=== PATIENT | male | born 1945 | race Caucasian/White ===

== ENCOUNTER 2020-01-02 06:53 | Outpatient (CLI) | payer MEDICARE, SELFPAY ==
--- NOTE | ~2020-01-02 | CT_ITS ---
EXAMINATION: CT abdomen pelvis w con INDICATION: Prostate cancer TECHNIQUE: Computed tomographic images of the abdomen and pelvis were obtained after the administrati on of 100 cc of Omnipaque 350 intravenous contrast. The dose-length product (DLP) was 1395.32 mGy-cm. Automated exposure control and iterative reconstruction technique were employed. COMPARISON: None available FINDINGS: Minimal dependent atelectasis is present in the lung bases. The heart size is normal. There is a moderate-sized sliding hiatal hernia. Stones are present in the nondistended gallbladder. The s pleen, gallbladder, pancreas, and adrenal glands are normal. There are multiple cysts of the kidneys. The largest on the right measures 4.7 cm and the largest in the left measures 9.5 cm. A 3.1 x 2.0 cm lesion of the left kidney lower pole measure soft tissue attenuation. There is calcified atheroscler osis of the aorta and many of the other arteries. No pathologically enlarged abdominal or pelvic lymp h nodes are identified. There is no free intraperitoneal gas or evidence of bowel obstruction. The ap pendix is normal. The prostate is mildly enlarged and heterogeneous in appearance. There are changes of left inguinal hernia repair. There is a questionable area of circumferential wall thickening of th e ascending colon. There is severe lumbar spondylosis. IMPRESSION: 1. No evidence of metastatic disease. 2. Indeterminate left kidney mass which may be benign or malignant. Further evaluation by CT or MRI w ithout and with contrast is recommended. 3. Cholelithiasis without evidence of cholecystitis. 4. Possible wall thickening of the ascending colon. Would recommend correlation with colonoscopy hist ory. Reviewed, dictated and finalized at location A. IMPRESSION: 1. No evidence of metastatic disease. 2. Indeterminate left kidney mass which may be benign or malignant. Further lanre luation by CT or MRI without and with contrast is recommended. 3. Cholelithiasis without evidence of cholecystitis. 4. Possible wall thickening of the ascending colon. Would recommend correlation with colonoscopy history.
--- NOTE | ~2020-01-02 | NM_ITS ---
EXAMINATION: NM bone scan whole body DATE: 01/02/2020 11:31 INDICATION: Prostate cancer. TECHNIQUE: 26 mCi Tc-99m HDP was administered intravenously. Delayed whole-body scintigrams were obt ained. COMPARISON: CT abdomen and pelvis 01/02/2020 FINDINGS: There is disc-centered increased activity in lumbar spine correlating with degenerative dis c disease by CT. There is increased activity in left hip joint correlating with osteoarthritis by CT. There is joint-centered increased activity at the sternoclavicular and acromioclavicular joints and in the knees and feet without radiographic comparison, likely osteoarthritis. IMPRESSION: 1. No evidence of metastatic disease. Reviewed, dictated and finalized at location A.
--- NOTE | ~2020-01-02 | XR_ITS ---
XR chest 2V 01/02/2020 07:16 Indication: Prostate cancer. Hypertension. Procedure: 2 view chest Comparison: 07/05/2018 Findings: Large hiatal hernia. Heart size normal. No focal air space disease, pulmonary edema, pleura l effusion or suspected pneumothorax. Impression: 1: No acute cardiopulmonary disease. 2: Large hiatal hernia. Reviewed, dictated and finalized at location A. Impression: 1: No acute cardiopulmonary disease. 2: Large hiatal hernia.
[2020-01-02 07:30] LABS: Estimated Glomerular Filt Rate 42
== END 2020-01-02 06:54 | disposition home or self-care (01) ==
PROVIDERS: PCP Internal Medicine; Visit Provider Urology
DX: C61 Malignant neoplasm of prostate (principal); K80.20 Calculus of gallbladder without cholecystitis without obstruction; N28.89 Other specified disorders of kidney and ureter; K44.9 Diaphragmatic hernia without obstruction or gangrene
CPT/HCPCS: 71046; 74177; 78306; A9561; Q9967

== ENCOUNTER 2020-01-06 06:48 | Outpatient (CLI) | payer MEDICARE, SELFPAY ==
--- NOTE | ~2020-01-06 | MR_ITS ---
EXAMINATION: MR abdomen wo/w con DATE: 01/06/2020 08:17 INDICATION: Left renal neoplasm of uncertain behavior. TECHNIQUE: Magnetic resonance imaging (MRI) of the abdomen was performed without and with 15 mL Multi bhaskar intravenous contrast. Sequences included coronal T2-weighted SS-FSE, coronal and axial FS 2D-F IESTA, axial STIR FSE, axial T2-weighted SS-FSE, axial T2-weighted FS SS-FSE, axial diffusion-weighte d SE, axial dual-echo T1-weighted FSPGR, and axial and coronal T1-weighted LAVA. Postcontrast axial T 1-weighted LAVA images were obtained in a time course. Postcontrast coronal T1-weighted LAVA images w ere obtained. COMPARISON: CT dated 01/02/2020 FINDINGS: 7 mm enhancing nodule along the pleura likely centered in the subpleural fat at the posterior aspect of the left lower lobe. Arch size is normal. No pericardial or pleural effusion. Moderate-sized slidi ng-type hiatal hernia. Liver, spleen and adjacent small splenule, pancreas and bilateral adrenal glan ds are normal. Large calcified gallstone within the otherwise normal-appearing gallbladder. Visualize d portion of the bowels are unremarkable. No pathologically enlarged abdominal lymphadenopathy. Mild thoracic and severe lumbar spondylosis with associated degenerative endplate changes. Small T1 hyperi ntense hemangioma along the superior endplate of L2. No suspicious bone lesions identified. Multiple bilateral nonenhancing renal cysts. There is layering proteinaceous fluid at the dependent a spect of the largest 10.5 cm cyst at the lower pole of the left kidney on the initial dental amalgam processor image whi ch is not appreciated on the subsequent images may be related to mixing. There is low T2 and high T1 signal within a 1.9 cm complex cystic lesion at the lower pole of the left kidney corresponding to th e lesion of concern on prior CT. The majority of the lesion demonstrates no measurable enhancement. H owever there is a small amount of discernible enhancement within the lesion. Assessment of the morpho logy of the enhancement is limited by small amount of ghosting artifact but appears on both axial and coronal sequences is occurring along a linear internal septation or vessel arising at the inferior m argin of the lesion which would be consistent with a Bosniak 2F lesion. IMPRESSION: 1. 1.9 cm complex cystic, Bosniak 2F lesion at the lower pole of the left kidney. Consider follow-up pre and postcontrast MRI in 6 months. 2. Indeterminate 7 mm enhancing nodule in the subpleural fat along the posterior left lower lobe. Dif ferential would include reactive or metastatic lymph node, pleural plaque, schwannoma/peripheral nerv e sheath tumor and granulomatous disease. Consider dedicated CT of the chest and attention on the rec ommended 6 month follow-up MRI for the renal lesion. Reviewed, dictated and finalized at location B. IMPRESSION: 1. 1.9 cm complex cystic, Bosniak 2F lesion at the lower pole of the left kidne y. Consider follow-up pre and postcontrast MRI in 6 months. 2. Indeterminate 7 mm enhancing nodule in the subpleural fat along the posterio r left lower lobe. Differential would include reactive or metastatic lymph node , pleural plaque, schwannoma/peripheral nerve sheath tumor and granulomatous di sease. Consider dedicated CT of the chest and attention on the recommended 6 mo nth follow-up MRI for the renal lesion.
[2020-01-06 07:33] LABS: Estimated Glomerular Filt Rate 42
== END 2020-01-06 06:49 | disposition home or self-care (01) ==
LOC: ANHIMG 06:51
PROVIDERS: PCP Internal Medicine; Visit Provider Urology
DX: D41.02 Neoplasm of uncertain behavior of left kidney (principal); N28.1 Cyst of kidney, acquired; R91.1 Solitary pulmonary nodule
CPT/HCPCS: 74183; A9577

== ENCOUNTER 2020-03-19 12:53 | Outpatient (CLI) | payer MEDICARE, SELFPAY ==
[2020-03-19 13:34] LABS: Anion Gap 7 mmol/L (8-16); Blood Urea Nitrogen 25 mg/dL (9-20); Calcium 9.2 mg/dL (8.4-10.2); Carbon Dioxide 27 mmol/L (22-30); Chloride 100 mmol/L (98-107); Estimated Glomerular Filt Rate 54; Glucose 117 mg/dL (75-110); Potassium 4.1 mmol/L (3.4-5.0); Sodium 134 mmol/L (137-145)
== END 2020-03-19 12:54 | disposition home or self-care (01) ==
PROVIDERS: PCP Internal Medicine
DX: C61 Malignant neoplasm of prostate (principal)
CPT/HCPCS: 36415; 80048

== ENCOUNTER 2020-05-11 09:40 | Outpatient (NON) | payer MEDICARE, SELFPAY ==
[2020-05-11 23:29] LABS: SARS-CoV-2 RNA PCR Negative
== END 2020-05-11 09:41 ==
PROVIDERS: PCP Internal Medicine; Visit Provider Internal Medicine
DX: R68.89 Other general symptoms and signs (principal); Z20.822 Contact with and (suspected) exposure to COVID-19
CPT/HCPCS: C9803; U0003

== ENCOUNTER 2020-05-12 10:13 | Inpatient (IN) | payer MEDICARE, SELFPAY ==
[2020-05-12] VITALS (60 sets, daily range): BP systolic 88–137; BP diastolic 53–110; PULSE 57–160; RESP 11–26; TEMP 36.3–37; O2SAT 90–99; BMI 33.7
--- NOTE | ~2020-05-12 | XR_ITS ---
XR chest 1V portable 05/12/2020 10:42 Indication: Numbness for 3 days. Atrial fibrillation. Procedure: AP portable chest Comparison: 01/02/2020 Findings: Large hiatal hernia. Left basilar atelectasis. No focal pneumonia, edema, pleural effusion or pneumothorax. Cardiomegaly. Atherosclerosis. Impression: 1: Left basilar atelectasis. 2: Large hiatal hernia. Reviewed, dictated and finalized at location A. C PRODUCER Impression: 1: Left basilar atelectasis. 2: Large hiatal hernia.
[2020-05-12] MEDS: dilTIAZem HCl INJ 25 MG/5 ML VIAL 10 MG IV PUSH (10:29)
[2020-05-12] MEDS: SODIUM CHLORIDE 0.9% IV 1,000 ML 999 ML IV CONT ×2 (10:31→12:00)
[2020-05-12 10:35] LABS: Basophils Percent Auto 0.2 % (0.2-1.2); Eosinophils Percent Auto 0.1 % (0-4.4); Hematocrit 36.6 % (42.0-52.0); Hemoglobin 12.7 g/dL (14.0-18.0); Immature Granulocyte Absolute 0.13 K/mm3 (0.00-0.031); Immature Granulocyte Percent A 1.1 % (0-0.5); Lymphocytes Absolute Auto 0.91 K/mm3 (0.9-3.2); Lymphocytes Percent Auto 7.5 % (18.3-44.2); Mean Corpuscular HGB Conc 34.7 g/dl (32-36); Mean Corpuscular Volume 86.5 fl (80-100); Mean Platelet Volume 10.5 fl (7.4-10.4); Monocytes Absolute Auto 0.9 K/mm3 (0.1-0.6); Neutrophils Absolute Auto 10.3 K/mm3 (1.3-6.7); Neutrophils Percent Auto 84.1 % (45.5-73.1); Platelet Count Result 125 k/mm3 (150-375); Red Blood Count 4.23 M/mm3 (4.6-6.20); Red Cell Distribution Width 13.2 % (11.5-14.5); White Blood Count 12.2 K/mm3 (4.5-10.0)
--- NOTE | 2020-05-12 10:41 | ECG_ITS ---
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
[2020-05-12 10:47] LABS: Alanine Aminotransferase 17 U/L (4-50); Albumin Level 3.6 g/dL (3.5-5.1); Alkaline Phosphatase 102 U/L (38-126); Anion Gap 11 mmol/L (8-16); Aspartate Amino Transferase 36 U/L (17-59); Bilirubin,Total 1.2 mg/dL (0.2-1.3); Blood Urea Nitrogen 42 mg/dL (9-20); Calcium 8.6 mg/dL (8.4-10.2); Carbon Dioxide 20 mmol/L (22-30); Chloride 98 mmol/L (98-107); Estimated CRCL calculation 32 ml/min; Estimated Glomerular Filt Rate 28; Glucose 142 mg/dL (75-110); Sodium 129 mmol/L (137-145)
[2020-05-12 11:04] LABS: NT Pro B Type Natriuretic Pept 4390 PG/ML (5-100); Troponin I 0.121 ng/mL (0.000-0.034)
--- NOTE | 2020-05-12 11:20 | PC.NURSE ---
received report from Debi KERNS. patient here with weakness. see notes. noted to have rapid AFIB on arrival. now on cardizem gtt. resting on stretcher. cardizem at 5mg/hr. on cardiac surgeon. labs drawn. daughter is in room. no change in patient's condition or assessments since arrival.
--- NOTE | 2020-05-12 11:50 | PC.NURSE ---
daughter came out to nursing desk. wants to know if her father's Covid test is resulted. states that he went to [facility]'s drive thru site at 159/162 yesterday for an appointment time at 10:55am. had swab done. advised we can check the system.
--- NOTE | 2020-05-12 12:30 | PC.NURSE ---
spoke with lab. patient does not have an encounter in our system for yesterday. spoke with Maggy KERNS ED charge nurse. same result. concerned that staff at drive thru testing site registered patient incorrectly. discussed with patient and family. 2 concerns. 1 being the wrong patient was registered. 2nd concern is that patient cannot have visitors if he is now PUI. all explained to his patient and family. daughter here put patient's other daughter Ayleen on speaker phone. 2nd liter of IVF infusing. patient given ice water. aware of planned admission. will need to be re-swabbed for Covid. will need any additional documentation that the patient has or can provide to document and notify our lab to file an incident report.
--- NOTE | 2020-05-12 13:00 | PC.NURSE ---
patient's daughter going home. advised on how to contact patient after admission and how to drop of items for patient.
--- NOTE | 2020-05-12 13:14 | ED.GENADULT ---
HPI - General Adult General Chief complaint: Weakness Stated complaint: DIZZY,WEAKNESS Time Seen by Provider: 05/12/20 10:18 History of Present Illness HPI narrative: Patient is a 74-year-old gentleman who presents the emergency department with chief complaint of generalized weakness. Patient reports that he has history of left bundle branch block. The patient was tested yesterday as an outpatient for COVID-19 because he has been feeling weak and rundown. Patient states this feels similar to whenever he had vertigo in the past and got extremely dehydrated. The patient reports symptoms are not improved by anything nor they worsened by nothing. Related Data Allergies Allergy/AdvReac Type Severity Reaction Status Date / Time No Known Allergies Allergy Verified 05/12/20 10:23 Review of Systems Review of Systems: Narrative: A 10 system review of systems was completed on the patient and is negative except for what is stated in the HPI. Nursing and ancillary documentation was reviewed. [facility] Past Medical History Medical History Acute contagious conjunctivitis of right eye Chronic kidney disease, stage 3 (moderate) Essential (primary) hypertension Gastro-esophageal reflux disease without esophagitis Gout, unspecified Pure hypercholesterolemia, unspecified Vitamin D deficiency, unspecified Comments Social history the patient denies smoking or illicit drug use Exam Narrative: Exam Narrative: GENERAL: Well-appearing, well-nourished, and in no acute distress. HEAD: Normocephalic, atraumatic. EYES: PERRLA and EOMI. ENT: Nares clear, no rhinorrhea or epistaxis. Mucous membranes moist. NECK: Supple. CHEST: Clear to auscultation. No respiratory distress. HEART: Tachycardic irregular rate and rhythm. No murmur heard. Normal peripheral pulses. ABDOMEN: Soft, nontender, nondistended, normal active bowel sounds. EXTREMITIES: Normal range of motion. No edema. SKIN: Warm, dry, no rash. NEURO: No focal deficits. Alert and oriented x3. PSYCH: Normal mood and affect. Course Course Emergency Course: EKG shows a wide-complex tachycardic rhythm patient does have an underlying history of left bundle branch block. Patient was started on a Cardizem drip and has had rate control Vital Signs Vital signs: Vital Signs Temperature 37.0 C 05/12/20 10:17 Pulse Rate 136 H 05/12/20 10:17 Respiratory Rate 21 H 05/12/20 10:17 Blood Pressure 111/90 05/12/20 10:17 Pulse Oximetry 90 05/12/20 10:17 Temperature 37.0 C 05/12/20 10:17 Pulse Rate 100 05/12/20 12:50 Respiratory Rate 22 H 05/12/20 12:50 Blood Pressure 99/65 L 05/12/20 12:50 Pulse Oximetry 96 05/12/20 12:50 Medical Decision Making Vital Signs Vital Signs: Vital Signs Temperature 37.0 C 05/12/20 10:17 Pulse Rate 136 H 05/12/20 10:17 Respiratory Rate 21 H 05/12/20 10:17 Blood Pressure 111/90 05/12/20 10:17 Pulse Oximetry 90 05/12/20 10:17 Temperature 37.0 C 05/12/20 10:17 Pulse Rate 100 05/12/20 12:50 Respiratory Rate 22 H 05/12/20 12:50 Blood Pressure 99/65 L 05/12/20 12:50 Pulse Oximetry 96 05/12/20 12:50 Lab Data Result diagrams: 05/12/20 10:28 05/12/20 10:28 Labs: Lab Results 05/12/20 05/12/20 Range/Units 10:28 10:28 WBC 12.2 H (4.5-10.0) K/mm3 RBC 4.23 L (4.6-6.20) M/mm3 Hgb 12.7 L (14.0-18.0) g/dL Hct 36.6 L (42.0-52.0) % MCV 86.5 (80-100) fl MCH 30.0 (26-34) pg MCHC 34.7 (32-36) g/dl RDW 13.2 (11.5-14.5) % Plt Count 125 L (150-375) k/mm3 MPV 10.5 H (7.4-10.4) fl Immature Gran % (Auto) 1.1 H (0-0.5) % Neut % (Auto) 84.1 H (45.5-73.1) % Lymph % (Auto) 7.5 L (18.3-44.2) % [place] % (Auto) 7.0 (2.6-8.5) % Eos % (Auto) 0.1 (0-4.4) % Baso % (Auto) 0.2 (0.2-1.2) % Lymph # (Auto) 0.91 (0.9-3.2) K/mm3 [place] # (Auto) 0.9 H (0.1-0.6) K/mm3 Eos
[2020-05-12] MEDS: ASPIRIN 81 MG CHEWABLE TABLET 324 MG PO (13:30)
[2020-05-12 15:35] LABS: Add Urine Microscopic? YES; Appearance Urine Clear (Clear); Bilirubin Urine Negative (Negative); Blood Urine Negative (Negative); Color Urine Yellow (Yellow); Glucose Urine UA Negative (Negative); Ketones Urine Negative (Negative); Leukocyte Esterase Ur Negative LEU/UL (Negative); Mucus Urine Rare /lpf; Nitrate Urine Negative (Negative); Protein Urine 1+ mg/dL (Negative); Specific Grav Ur 1.009 (1.001-1.035); Squamous Epithelial Cell Urine Rare /hpf (Few); Urobilinogen Urine Negative mg/dL (<2.0); WBC Urine 0-3 /hpf
--- NOTE | 2020-05-12 17:16 | ADMGEN ---
This patient, Yosef Chapa, was admitted to IMU Room 211-01 at 1530 on 05/12/20. Patient/family oriented to hospital policies and general routines including ID bracelet, bed and alarms, visiting hours, pain management, procedures, bathroom and other care routines, personal items, smoking policy, room service/diet, and visiting hours. Information on how to activate the Rapid Response Team has been discussed. Patient/Family are encouraged to report perceived risks to care and to ask questions if they do not understand what they are told or what they should do.
[2020-05-12 18:14] LABS: Hemoglobin A1C 5.2 % (<5.7)
[2020-05-12 18:22] LABS: Troponin I 0.096 ng/mL (0.000-0.034)
[2020-05-12 18:52] LABS: Iron 16 ug/dL (49-181)
[2020-05-12] MEDS: SODIUM CHLORIDE 0.9% IV 1,000 ML 100 ML IV CONT (18:53)
[2020-05-12 18:56] LABS: Creatine Kinase 259 U/L (55-170)
[2020-05-12 19:02] LABS: Percent Iron Saturation 6 % (20-50)
--- NOTE | 2020-05-12 20:00 | PM.IMHP ---
H&P: HPI History of Present Illness Date/Time: 05/12/20 20:00 Chief Complaint: Weakness. Narrative: This is a 74-year-old male with chronic kidney disease stage 3, prostate cancer, hypertension, paroxysmal atrial fibrillation, and coronary artery disease who presented to the emergency department earlier today via EMS from home with complaints of weakness. Perhaps 4 or 5 days ago he developed fever blisters on his lower lip and about the same time he began experiencing generalized malaise with progressive weakness since that time. ?I have just felt run down? with intermittent episodes of dizziness over the past couple of days. After speaking with his doctor, he had an outpatient COVID swab done yesterday but has not yet heard any results. This morning he reports a low blood pressure which prompted him to come in for evaluation. On arrival to the emergency department he was in atrial fibrillation with rapid ventricular response with taoism of sinus rhythm after receiving IV diltiazem. His creatinine is elevated from baseline and with further questioning he reports eating and drinking as per usual prior to the last 4 days or so. He has not noticed a decrease or change in urine output. No nausea, vomiting, or diarrhea. He denies recent change in medication, new medications, and NSAID use. No known exposure to those positive for COVID-19. Review of Systems Review of Systems: Narrative: Twelve systems were reviewed with pertinent positives and negatives as per HPI. No headache or neck ache. He denies sinus congestion, rhinorrhea, otalgia, and odynophagia. No rash. No recent travel. No recent antibiotic use. He denies chest pain, palpitations, racing heart, and pleuritic pain. No cough or shortness of breath. Except as documented, all other systems were reviewed and are negative. [facility] Past Medical History Medical History (Updated 05/12/20 @ 17:08 by Holly Bailey PA-C) Chronic kidney disease, stage 3 (moderate) Baseline creatinine is between 1.3 and 1.[address] Leonardo Cuevas. Coronary artery disease Status post stent to obtuse marginal in 2006 and balloon angioplasty to the mid RCA in July 2019. Patient of Dr. Desai. Diastolic congestive heart failure Echocardiogram in September 2019 showed mild concentric left ventricular hypertrophy, mild enlargement of the left ventricular cavity, impaired diastolic relaxation grade 1, and ejection fraction estimated at 55% with mild pulmonary hypertension an estimated peak RVSP of 37 mmHg. Diverticulitis Dyslipidemia Essential hypertension Gastroesophageal reflux disease Gout Left bundle branch block Obstructive sleep apnea Status post uvulectomy. Paroxysmal atrial fibrillation Prostate cancer Vitamin D deficiency Surgical History Surgical History (Updated 05/13/20 @ 16:39 by Holly Bailey PA-C) History of cardiac catheterization Status post stent and PCI as detailed above. History of radical prostatectomy (~03/2020) History of uvulectomy Family History Family History Father Acute myocardial infarction Mother Cerebrovascular accident Social History Social History (Updated 05/13/20 @ 16:36 by Holly Bailey PA-C) Social History: The patient lives alone in [place]. Retired from [employer]. 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 Lifelong nonsmoker. No alcohol or illicit substance abuse. His daughters Ayleen Rodriguez and Amber Arvizu are his emergency contacts. Listed as a full code. Smoking status: Never smoker Alcohol intake: never Substance use: never Gender identity (if verbalized by the patient): Male Spiritual care concerns: No Meds Home Medications and Allergies Home Medications Medication Instructions Recorded Confirmed Type allopurinol 300 mg PO DAILY 05/12/20 05/12/20 History apixaban [Eliquis] 5 mg PO Q12H 05/12/20
[2020-05-12 20:51] LABS: Troponin I 0.086 ng/mL (0.000-0.034)
[2020-05-12 21:10] LABS: Anion Gap 9 mmol/L (8-16); Blood Urea Nitrogen 38 mg/dL (9-20); Calcium 8.2 mg/dL (8.4-10.2); Carbon Dioxide 23 mmol/L (22-30); Chloride 102 mmol/L (98-107); Estimated CRCL calculation 38 ml/min; Estimated Glomerular Filt Rate 33; Glucose 107 mg/dL (75-110); Magnesium 1.8 mg/dL (1.6-2.3); Sodium 134 mmol/L (137-145)
[2020-05-12 21:12] LABS: Potassium 2.8 mmol/L (3.4-5.0)
[2020-05-12 21:13] LABS: Cortisol Random 6.81 ug/dL
[2020-05-12] MEDS: ATORVASTATIN 40 MG TABLET 80 MG PO (22:25)
[2020-05-12] MEDS: APIXABAN 5 MG TABLET PO (22:25)
[2020-05-12] MEDS: POTASSIUM CHLORIDE 20 MEQ TABLET 40 MEQ PO (22:25)
[2020-05-12] MEDS: carvediloL 25 MG TABLET PO (22:25)
[2020-05-12 22:50] LABS: Folic Acid > 20.0 ng/mL (2.76->20)
[2020-05-12 23:38] LABS: SARS-CoV-2 RNA PCR Negative
[2020-05-13] VITALS (21 sets, daily range): BP systolic 118–139; BP diastolic 68–85; PULSE 69–134; RESP 18–20; TEMP 36.1–38.2; O2SAT 93–99
[2020-05-13 01:17] LABS: Glucose Point of Care 109 (65-105)
--- NOTE | 2020-05-13 03:01 | PC.NURSE ---
Accidentally administered eliquis, carvedilol, and atorvastatin under Mamie Domínguez at 2225. Actually administered by Janay Forte
[2020-05-13 05:28] LABS: Hematocrit 33.9 % (42.0-52.0); Hemoglobin 11.8 g/dL (14.0-18.0); Mean Corpuscular HGB Conc 34.8 g/dl (32-36); Mean Corpuscular Hemoglobin 30.6 pg (26-34); Mean Corpuscular Volume 87.8 fl (80-100); Mean Platelet Volume 10.6 fl (7.4-10.4); Platelet Count Result 132 k/mm3 (150-375); Red Blood Count 3.86 M/mm3 (4.6-6.20); Red Cell Distribution Width 13.4 % (11.5-14.5); White Blood Count 7.9 K/mm3 (4.5-10.0)
[2020-05-13 05:48] LABS: Anion Gap 7 mmol/L (8-16); Blood Urea Nitrogen 35 mg/dL (9-20); Calcium 8.4 mg/dL (8.4-10.2); Carbon Dioxide 25 mmol/L (22-30); Chloride 104 mmol/L (98-107); Estimated CRCL calculation 45 ml/min; Estimated Glomerular Filt Rate 39; Glucose 114 mg/dL (75-110); Sodium 136 mmol/L (137-145)
[2020-05-13] MEDS: POTASSIUM CHLORIDE 20 MEQ TABLET 40 MEQ PO ×2 (10:09→18:33)
[2020-05-13] MEDS: MAGNESIUM OXIDE 400 MG TABLET PO (10:10)
[2020-05-13] MEDS: allopurinoL 300 MG TABLET PO (10:12)
[2020-05-13] MEDS: ATORVASTATIN 40 MG TABLET 80 MG PO ×2 (10:12→20:55)
[2020-05-13] MEDS: APIXABAN 5 MG TABLET PO ×2 (10:13→20:56)
[2020-05-13] MEDS: EZETIMIBE 10 MG TABLET PO (10:13)
[2020-05-13] MEDS: carvediloL 25 MG TABLET PO ×2 (10:13→20:55)
[2020-05-13 16:07] LABS: Anion Gap 5 mmol/L (8-16); Blood Urea Nitrogen 33 mg/dL (9-20); Calcium 8.8 mg/dL (8.4-10.2); Carbon Dioxide 28 mmol/L (22-30); Chloride 104 mmol/L (98-107); Estimated CRCL calculation 45 ml/min; Estimated Glomerular Filt Rate 39; Glucose 125 mg/dL (75-110); Magnesium 1.9 mg/dL (1.6-2.3); Potassium 3.5 mmol/L (3.4-5.0); Sodium 137 mmol/L (137-145)
[2020-05-13] MEDS: METOPROLOL TARTRATE INJ 5 MG/5 ML VIAL IV PUSH ×2 (16:26→18:34)
--- NOTE | 2020-05-13 16:28 | PM.IMPN ---
Progress Note: A&P Assessment and Plan (1) Generalized weakness: Code(s): R53.1 - Weakness Status: Acute Assessment and Plan: 05/13/20 16:28 patient is a 74-year-old with history of stage 3 chronic kidney disease, proximal atrial fibrillation, coronary artery disease and prostate cancer patient presented emergency department with generalized weakness and fatigue recently he was tested for COVID-19 and it was negative, patient was found to be in atrial fibrillation with RVR and was started on diltiazem drip, patient is feeling little better denies any chest pain shortness of breath palpitation fever or chills. (2) Atrial fibrillation with rapid ventricular response: Code(s): I48.91 - Unspecified atrial fibrillation Status: Acute Assessment and Plan: Patient on diltiazem drip will continue to monitor and consult relationship management lead for further recommendation (3) Elevated troponin: Code(s): R77.8 - Other specified abnormalities of plasma proteins Status: Acute Assessment and Plan: Patient with elevated tropes mild and flat most likely demand ischemia secondary to atrial fibrillation with RVR patient will be seen by relationship management lead and further recommendation to follow will do the cardiac echo, (4) Acute renal failure superimposed on chronic kidney disease: Code(s): N17.9 - Acute kidney failure, unspecified; N18.9 - Chronic kidney disease, unspecified Status: Acute Assessment and Plan: Most likely secondary to dehydration will gently hydrate the patient and monitor (5) Hyponatremia: Code(s): E87.1 - Hypo-osmolality and hyponatremia Status: Acute Assessment and Plan: Most likely secondary to dehydration will gently hydrate the patient and monitor (6) Hypokalemia: Code(s): E87.6 - Hypokalemia Status: Acute Assessment and Plan: Will monitor and supplement (7) Dehydration: Code(s): E86.0 - Dehydration Status: Acute Assessment and Plan: Will gently hydrate the patient and monitor (8) Normocytic anemia: Code(s): D64.9 - Anemia, unspecified Status: Acute (9) Hyperglycemia: Code(s): R73.9 - Hyperglycemia, unspecified Status: Acute Assessment and Plan: Patient A1cs 5.2 unlikely patient has a diabetes (10) Diastolic congestive heart failure: Code(s): I50.30 - Unspecified diastolic (congestive) heart failure Status: Inactive Assessment and Plan: Patient does not appear to be volume overloaded will continue to monitor Subjective Date/time seen: 05/13/20 16:28 patient is a 74-year-old with history of stage 3 chronic kidney disease, proximal atrial fibrillation, coronary artery disease and prostate cancer patient presented emergency department with generalized weakness and fatigue recently he was tested for COVID-19 and it was negative, patient was found to be in atrial fibrillation with RVR and was started on diltiazem drip, patient is feeling little better denies any chest pain shortness of breath palpitation fever or chills. Review of Systems Review of Systems: All systems reviewed & are unremarkable except as noted in HPI and below Exam Narrative: Exam Narrative: Moderately obese Patient is comfortable, NAD HEENT: eyes are clear and none icteric LUNGS: Bilateral fair air entry with minimal rhonchi HEART: Irregularly irregular ABD: BS+, Soft and nontender Lower extremities: no edema SKIN: nonjaundiced Neuro: grossly intact. Objective Data Vital Signs Vital Signs: Vital Signs - 24 hr 05/12/20 17:17 05/12/20 18:00 05/12/20 20:00 Temperature 97.3 F L Pulse Rate 57 L 66 67 Respiratory Rate 20 Blood Pressure 132/74 Pulse Oximetry 99 05/12/20 22:00 05/12/20 22:25 05/13/20 00:00 Temperature 97.2 F L Pulse Rate 86 72 101 H Respiratory Rate 20 Blood Pressure 130/76 Pulse Oximetry 93 05/13/20 02:00 05/13/20 04:00
[2020-05-13] MEDS: dilTIAZem HCL 60 MG TABLET PO (20:55)
[2020-05-14] VITALS (17 sets, daily range): BP systolic 120–149; BP diastolic 65–77; PULSE 64–85; RESP 18–24; TEMP 36.3–37.4; O2SAT 96–99
--- NOTE | 2020-05-14 | ECHO_ITS ---
Patient Info Name: Yosef Chapa Age: 74 years : 1945 Gender: Male Ht: 73 in Wt: 255 lbs BSA: 2.48 m2 HR: 80 bpm BP: 132 / 71 mmHg Heart Rhythm: Sinus Rhythm Technical Quality: Fair Exam Date: 05/14/2020 11:32 AM Exam Location: [facility] Patient Status: Inpatient Admit Date: 05/12/2020 Staff Ordering Physician: Stanton Samuels MD [employer] Professor: David Rodriguez RDCS Attending Provider: Liliya Coronado MD Exam Type: CA echo dop color flow w con Study Info Indications I48.1 - Persistent atrial fibrillation Complete two-dimensional, color flow and Doppler transthoracic echocardiogram is performed with contrast to opacify the left ventricle and to improve the deliniation of the left ventricle endocardial borders. Contrast/Agitated Saline Contrast/Ag. Saline: Definity Amount: 3.00 ml Administered By: Juan Ortiz RN Existing IV Access: Yes History/Risk Factors Atrial Fibrillation; CKD3, HFpEF, HTN. Summary 1. Left ventricular systolic function is normal, estimated at 55%. 2. There is mildly increased left ventricular wall thickness with sigmoid septal hypertrophy. 3. Left ventricular chamber dimension is normal. 4. Left ventricular septal wall motion is abnormal with septal motion related to bundle branch block. 5. The left ventricular diastolic function is grade II diastolic dysfunction. 6. Left atrial chamber dimension is mildly enlarged. 7. There is no aortic valve stenosis. 8. There is mild eccentric mitral valve regurgitation. 9. There is trace tricuspid valve regurgitation. 10. Mild pulmonary hypertension, estimated pulmonary arterial systolic pressure is 35 mmHg. 11. There is small pericardial effusion with fibrinous material in the pericardial space. 12. The anterior mitral valve leaflet is thickened and calcified. Left Ventricle Left ventricular systolic function is normal, estimated at 55%. There is mildly increased left ventricular wall thickness with sigmoid septal hypertrophy. Left ventricular chamber dimension is normal. Left ventricular septal wall motion is abnormal with septal motion related to bundle branch block. The left ventricular diastolic function is grade II diastolic dysfunction. Right Ventricle Right ventricular chamber dimension is not well visualized. Left Atria Left atrial chamber dimension is mildly enlarged. Right Atria Right atrial chamber dimension is not well visualized. Aortic Valve The aortic valve is not well visualized. There is mild aortic valve sclerosis. There is no aortic valve stenosis. There is trace aortic valve regurgitation. Pulmonic Valve The pulmonic valve is not well visualized. Mitral Valve The anterior mitral valve leaflet is thickened and calcified. There is mild eccentric mitral valve regurgitation. The mitral valve annulus is mildly calcified. Tricuspid Valve The tricuspid valve leaflets are not well visualized. There is trace tricuspid valve regurgitation. Mild pulmonary hypertension, estimated pulmonary arterial systolic pressure is 35 mmHg. Pericardium/Pleural The pericardium appears normal. There is small pericardial effusion with fibrinous material in the pericardial space. Aorta The aortic root size at the sinus of Valsalva is normal. There is mild aortic atherosclerosis. Left Ventricular Outflow Tract Name
[2020-05-14 05:25] LABS: Hematocrit 34.7 % (42.0-52.0); Hemoglobin 11.8 g/dL (14.0-18.0); Mean Corpuscular Hemoglobin 30.1 pg (26-34); Mean Corpuscular Volume 88.5 fl (80-100); Mean Platelet Volume 10.6 fl (7.4-10.4); Platelet Count Result 129 k/mm3 (150-375); Red Blood Count 3.92 M/mm3 (4.6-6.20); Red Cell Distribution Width 13.4 % (11.5-14.5)
[2020-05-14 05:33] LABS: Anion Gap 4 mmol/L (8-16); Blood Urea Nitrogen 29 mg/dL (9-20); Calcium 8.8 mg/dL (8.4-10.2); Carbon Dioxide 23 mmol/L (22-30); Chloride 110 mmol/L (98-107); Estimated CRCL calculation 115 ml/min; Estimated Glomerular Filt Rate 54; Glucose 127 mg/dL (75-110); Magnesium 1.7 mg/dL (1.6-2.3); Potassium 3.9 mmol/L (3.4-5.0); Sodium 137 mmol/L (137-145)
[2020-05-14] MEDS: dilTIAZem HCL 60 MG TABLET PO ×3 (05:43→20:05)
[2020-05-14] MEDS: ATORVASTATIN 40 MG TABLET 80 MG PO (09:24)
[2020-05-14] MEDS: allopurinoL 300 MG TABLET PO (09:25)
[2020-05-14] MEDS: APIXABAN 5 MG TABLET PO ×2 (09:26→20:06)
[2020-05-14] MEDS: carvediloL 25 MG TABLET PO ×2 (09:26→20:05)
[2020-05-14] MEDS: EZETIMIBE 10 MG TABLET PO (09:27)
[2020-05-14] MEDS: MAGNESIUM OXIDE 400 MG TABLET PO (09:27)
--- NOTE | 2020-05-14 11:05 | PM.CNCAR ---
Assessment and Plan Assessment and plan (1) Atrial fibrillation with rapid ventricular response: Code(s): I48.91 - Unspecified atrial fibrillation Status: Acute Assessment and Plan: Maintaining sinus rhythm currently. Caution with aggressive concomitant AV tuyet blocking agents given underlying left bundle-branch block, first-degree AV block given conduction system disease. Transition to long-acting diltiazem 180 mg in a.m. with continuation of carvedilol 25 mg twice daily. Discussed alternative beta-devante such as Metoprolol tartrate or succinate, however, given the circumstances almost like aggressive shifts at this time. Continue systemic anticoagulation with Eliquis 5 mg b.i.d.. Monitor for bleeding. Monitor potassium and magnesium. If maintaining sinus rhythm, tolerating medical therapy tomorrow and symptoms continue to improve anticipate discharge home with follow-up as an outpatient with Dr. Desai in the next 2 weeks. We discussed potential concerns given LBBB, first-degree AV block and concomitant AV tuyet blocking agents with regards to symptomatic bradycardia and or heart block resulting in need for pacemaker. At this time, no indication for pacemaker and patient has been otherwise stable. Will review records as requested including patient report of echocardiogram in March. Will compared to prior study performed September 13 at that time EF 55%, mild LV enlargement moderate LAD, trivial MR, no , mild TR with RVSP 37 mm Hg. Systolic murmur consistent with more prominent valvular heart disease not explained by echo earlier last year. We discussed this concern regarding his examination findings and lack of significant valvular heart disease last year. Recommendations to follow after review. (2) Elevated troponin: Code(s): R77.8 - Other specified abnormalities of plasma proteins Status: Acute Assessment and Plan: Likely demand ischemia secondary to atrial fibrillation with rapid ventricular response and underlying CAD. No symptoms highly suggestive of acute coronary syndrome and/or plaque rupture with downward trending troponin since admission also in setting of acute on chronic renal failure. (3) Acute renal failure superimposed on chronic kidney disease: Code(s): N17.9 - Acute kidney failure, unspecified; N18.9 - Chronic kidney disease, unspecified Status: Acute Assessment and Plan: As above, improved to baseline with IV fluid support. Continue to monitor. (4) Dehydration: Code(s): E86.0 - Dehydration Status: Acute Assessment and Plan: Resolved with supportive care. Likely secondary to decreased oral intake as she did not tolerate atrial fibrillation with rapid ventricular response well. (5) Coronary artery disease: Code(s): I25.10 - Atherosclerotic heart disease of [place] coronary artery without angina pectoris Status: Inactive Assessment and Plan: No clear anginal symptoms. Chronic left bundle-branch block mild elevation in downward trending troponins without clear anginal symptoms. Monitor clinically overnight. Patient stable symptoms continue to improve follow up as an outpatient with further management. Atorvastatin 80 mg daily not q.12 hours. This will be changed. Check lipid panel. LDL goal less than 70. History of Present Illness History of Present Illness Consult date/time: Date of service: 05/14/20 11:05 This is a cardiology consultation at the request of Holly Bailey of the [facility] service for our opinion regarding atrial fibrillation with rapid ventricular response. Requesting physician: Holly Bailey, PAKariC Consult reason: atrial fibrillation Reason For Visit: AFIB W/RVR, Elevated Troponin Narrative: Patient is a pleasant 74-year-old male with past medical history significant for stage 3 chronic kidney disease, prostate cancer, hypertension, paroxysmal atrial fibrillation, coronary artery dis
[2020-05-14] MEDS: PERFLUTREN LIPID MICROSPHERES 1.5 ML VIAL DILUTED TO 10 ML TOTAL VOLUME IV PUSH (13:09)
--- NOTE | 2020-05-14 17:22 | PM.IMPN ---
Progress Note: A&P Assessment and Plan (1) Generalized weakness: Code(s): R53.1 - Weakness Status: Acute Assessment and Plan: 05/14/20 17:22 patient is a 74-year-old with history of stage 3 chronic kidney disease, proximal atrial fibrillation, coronary artery disease and prostate cancer patient presented emergency department with generalized weakness and fatigue recently he was tested for COVID-19 and it was negative, patient was found to be in atrial fibrillation with RVR and was started on diltiazem drip, patient is feeling little better denies any chest pain shortness of breath palpitation fever or chills. 05/14 today patient was seen by land lease information clerk concerned patient has history of LBBB and 1st degree AV block giving patient beta devante can result in 3rd degree hear block, patient is started on long acting diltiazem 180mg and coreg 25mg BID, patient rate is trending down, and anticoagulated with Eliquis, patient is clinically improving, will continue to monitor, will have PT/OT evaluate patient, if remains clinically stable, will discharge home tomorrow. (2) Atrial fibrillation with rapid ventricular response: Code(s): I48.91 - Unspecified atrial fibrillation Status: Acute Assessment and Plan: Patient on diltiazem drip will continue to monitor and consult land lease information clerk for further recommendation (3) Elevated troponin: Code(s): R77.8 - Other specified abnormalities of plasma proteins Status: Acute Assessment and Plan: Patient with elevated tropes mild and flat most likely demand ischemia secondary to atrial fibrillation with RVR patient will be seen by land lease information clerk and further recommendation to follow will do the cardiac echo, (4) Acute renal failure superimposed on chronic kidney disease: Code(s): N17.9 - Acute kidney failure, unspecified; N18.9 - Chronic kidney disease, unspecified Status: Acute Assessment and Plan: Most likely secondary to dehydration will gently hydrate the patient and monitor (5) Hyponatremia: Code(s): E87.1 - Hypo-osmolality and hyponatremia Status: Acute Assessment and Plan: Most likely secondary to dehydration will gently hydrate the patient and monitor (6) Hypokalemia: Code(s): E87.6 - Hypokalemia Status: Acute Assessment and Plan: Will monitor and supplement (7) Dehydration: Code(s): E86.0 - Dehydration Status: Acute Assessment and Plan: Will gently hydrate the patient and monitor (8) Normocytic anemia: Code(s): D64.9 - Anemia, unspecified Status: Acute (9) Hyperglycemia: Code(s): R73.9 - Hyperglycemia, unspecified Status: Acute Assessment and Plan: Patient A1cs 5.2 unlikely patient has a diabetes (10) Diastolic congestive heart failure: Code(s): I50.30 - Unspecified diastolic (congestive) heart failure Status: Inactive Assessment and Plan: Patient does not appear to be volume overloaded will continue to monitor Subjective Date/time seen: 05/14/20 17:22 patient is a 74-year-old with history of stage 3 chronic kidney disease, proximal atrial fibrillation, coronary artery disease and prostate cancer patient presented emergency department with generalized weakness and fatigue recently he was tested for COVID-19 and it was negative, patient was found to be in atrial fibrillation with RVR and was started on diltiazem drip, patient is feeling little better denies any chest pain shortness of breath palpitation fever or chills. 05/14 today patient was seen by land lease information clerk concerned patient has history of LBBB and 1st degree AV block giving patient beta devante can result in 3rd degree hear block, patient is started on long acting diltiazem 180mg and coreg 25mg BID, patient rate is trending down, and anticoagulated with Eliquis, patient is clinically improving, will continue to monitor, will have PT/OT evaluate patient, if remains
[2020-05-15] VITALS (9 sets, daily range): BP systolic 122–151; BP diastolic 68–85; PULSE 63–92; RESP 20–22; TEMP 36.3–37.3; O2SAT 98
[2020-05-15 05:16] LABS: Hematocrit 32.2 % (42.0-52.0); Hemoglobin 10.9 g/dL (14.0-18.0); Mean Corpuscular HGB Conc 33.9 g/dl (32-36); Mean Corpuscular Hemoglobin 29.5 pg (26-34); Mean Platelet Volume 10.6 fl (7.4-10.4); Platelet Count Result 134 k/mm3 (150-375); Red Cell Distribution Width 13.5 % (11.5-14.5); White Blood Count 7.1 K/mm3 (4.5-10.0)
[2020-05-15 05:35] LABS: Anion Gap 7 mmol/L (8-16); Blood Urea Nitrogen 28 mg/dL (9-20); Calcium 8.2 mg/dL (8.4-10.2); Carbon Dioxide 22 mmol/L (22-30); Chloride 107 mmol/L (98-107); Estimated CRCL calculation 57 ml/min; Estimated Glomerular Filt Rate 54; Glucose 120 mg/dL (75-110); Potassium 3.3 mmol/L (3.4-5.0); Sodium 136 mmol/L (137-145)
[2020-05-15] MEDS: ATORVASTATIN 40 MG TABLET 80 MG PO (09:11)
[2020-05-15] MEDS: POTASSIUM CHLORIDE 20 MEQ TABLET 40 MEQ PO (09:11)
[2020-05-15] MEDS: dilTIAZem HCL CD 180 MG CAP.ER.24H PO (09:11)
[2020-05-15] MEDS: MAGNESIUM OXIDE 400 MG TABLET PO (09:12)
[2020-05-15] MEDS: APIXABAN 5 MG TABLET PO (09:12)
[2020-05-15] MEDS: allopurinoL 300 MG TABLET PO (09:12)
[2020-05-15] MEDS: carvediloL 25 MG TABLET PO (09:12)
[2020-05-15] MEDS: EZETIMIBE 10 MG TABLET PO (09:12)
--- NOTE | 2020-05-15 11:49 | PM.PNCARD ---
Progress Note: A&P Assessment and Plan (1) Atrial fibrillation with rapid ventricular response: Code(s): I48.91 - Unspecified atrial fibrillation Status: Acute Assessment and Plan: Maintaining sinus rhythm currently. Caution with aggressive concomitant AV tuyet blocking agents given underlying left bundle-branch block, first-degree AV block given conduction system disease. Continue diltiazem 180 mg daily and carvedilol 25 mg twice daily. Tolerating well maintaining sinus rhythm. Continue systemic anticoagulation. Stable for discharge from cardiac perspective. Follow-up with Dr. Desai as scheduled May 28, [facility] in one week as outpatient. (2) Elevated troponin: Code(s): R77.8 - Other specified abnormalities of plasma proteins Status: Acute Assessment and Plan: Likely demand ischemia secondary to atrial fibrillation with rapid ventricular response and underlying CAD. No symptoms highly suggestive of acute coronary syndrome and/or plaque rupture with downward trending troponin since admission also in setting of acute on chronic renal failure. (3) Acute renal failure superimposed on chronic kidney disease: Code(s): N17.9 - Acute kidney failure, unspecified; N18.9 - Chronic kidney disease, unspecified Status: Acute Assessment and Plan: As above, improved to baseline with IV fluid support. Continue to monitor. (4) Dehydration: Code(s): E86.0 - Dehydration Status: Acute Assessment and Plan: Resolved with supportive care. Losartan hydrochlorothiazide has been on hold since admission. Recommend resuming losartan but may hold off on hydrochlorothiazide depending upon blood pressure. Defer to primary service in this regard. (5) Coronary artery disease: Code(s): I25.10 - Atherosclerotic heart disease of [place] coronary artery without angina pectoris Status: Inactive Assessment and Plan: No clear anginal symptoms. Chronic left bundle-branch block mild elevation in downward trending troponins without clear anginal symptoms. Monitor clinically overnight. Patient stable symptoms continue to improve follow up as an outpatient with further management. Subjective Date/time seen: Date of service: 05/15/20 11:49 Follow-up for atrial fibrillation Patient feels well. Denies exertional dyspnea, dizziness, chest pain or palpitation. Maintaining sinus rhythm overnight. Denies orthopnea or PND. Feels well would like to go home. Review of Systems Review of Systems: All systems reviewed & are unremarkable except as noted in HPI and below Constitutional: Constitutional: Reports as per HPI, Reports no additional constitutional complaints, Reports chills, Denies excessive sweating, Reports lethargy and Reports weakness Eyes: Eyes: Reports as per HPI and Reports no additional eye complaints ENT: Reports system reviewed and no additional complaints, except as documented, Reports as per HPI and Reports vertigo Cardiovascular: Cardiovascular: Reports as per HPI, Reports no additional cardiovascular complaints, Denies chest pain, Denies diaphoresis and Denies leg edema Respiratory: Respiratory: Reports as per HPI and Reports no additional respiratory complaints Gastrointestinal: Gastrointestinal: Reports as per HPI, Reports no additional gastrointestinal complaints, Denies abdominal pain, Denies melena, Denies bloating, Denies hematochezia, Denies diarrhea and Denies vomiting Genitourinary: Genitourinary: Reports no additional male genitourinary complaints, Reports as per HPI, Denies hematuria and Denies dysuria Musculoskeletal: Musculoskeletal: Reports no additional musculoskeletal complaints and Reports as per HPI Integumentary/Breasts: Skin/Breast: Reports system reviewed and no additional complaints, except as docu and Reports as per HPI Neurologic: Reports system reviewed and no additional complaints, except as documented, Reports as per HPI and Denies Abnorm
[2020-05-15] MEDS: DOCUSATE SODIUM 100 MG CAPSULE PO (12:20)
--- NOTE | 2020-05-15 12:29 | PM.DS ---
DS: Admitting Diagnosis Admitting Diagnosis Admitting Diagnosis: Chief Complaint: Weakness. DS: Discharge Diagnosis Discharge Diagnosis (1) Generalized weakness: Code(s): R53.1 - Weakness Status: Acute Assessment and Plan: 05/14/20 17:22 patient is a 74-year-old with history of stage 3 chronic kidney disease, proximal atrial fibrillation, coronary artery disease and prostate cancer patient presented emergency department with generalized weakness and fatigue recently he was tested for COVID-19 and it was negative, patient was found to be in atrial fibrillation with RVR and was started on diltiazem drip, patient is feeling little better denies any chest pain shortness of breath palpitation fever or chills. 05/14 today patient was seen by occupational ther concerned patient has history of LBBB and 1st degree AV block giving patient beta devante can result in 3rd degree hear block, patient is started on long acting diltiazem 180mg and coreg 25mg BID, patient rate is trending down, and anticoagulated with Eliquis, patient is clinically improving, will continue to monitor, will have PT/OT evaluate patient, if remains clinically stable, will discharge home tomorrow. (2) Atrial fibrillation with rapid ventricular response: Code(s): I48.91 - Unspecified atrial fibrillation Status: Acute Assessment and Plan: Patient on diltiazem drip will continue to monitor and consult occupational ther for further recommendation (3) Elevated troponin: Code(s): R77.8 - Other specified abnormalities of plasma proteins Status: Acute Assessment and Plan: Patient with elevated tropes mild and flat most likely demand ischemia secondary to atrial fibrillation with RVR patient will be seen by occupational ther and further recommendation to follow will do the cardiac echo, (4) Acute renal failure superimposed on chronic kidney disease: Code(s): N17.9 - Acute kidney failure, unspecified; N18.9 - Chronic kidney disease, unspecified Status: Acute Assessment and Plan: Most likely secondary to dehydration will gently hydrate the patient and monitor (5) Hyponatremia: Code(s): E87.1 - Hypo-osmolality and hyponatremia Status: Acute Assessment and Plan: Most likely secondary to dehydration will gently hydrate the patient and monitor (6) Hypokalemia: Code(s): E87.6 - Hypokalemia Status: Acute Assessment and Plan: Will monitor and supplement (7) Dehydration: Code(s): E86.0 - Dehydration Status: Acute Assessment and Plan: Will gently hydrate the patient and monitor (8) Normocytic anemia: Code(s): D64.9 - Anemia, unspecified Status: Acute (9) Hyperglycemia: Code(s): R73.9 - Hyperglycemia, unspecified Status: Acute Assessment and Plan: Patient A1cs 5.2 unlikely patient has a diabetes (10) Diastolic congestive heart failure: Code(s): I50.30 - Unspecified diastolic (congestive) heart failure Status: Inactive Assessment and Plan: Patient does not appear to be volume overloaded will continue to monitor DS: Summary Hospital Course Reason for hospitalization: Chief Complaint: Weakness. Narrative: This is a 74-year-old male with chronic kidney disease stage 3, prostate cancer, hypertension, paroxysmal atrial fibrillation, and coronary artery disease who presented to the emergency department earlier today via EMS from home with complaints of weakness. Perhaps 4 or 5 days ago he developed fever blisters on his lower lip and about the same time he began experiencing generalized malaise with progressive weakness since that time. ?I have just felt run down? with intermittent episodes of dizziness over the past couple of days. After speaking with his doctor, he had an outpatient COVID swab done yesterday but has not yet heard any results. This morning he reports a low blood pressure which prompted him to come in for eval
== END 2020-05-15 14:14 | disposition home or self-care (01) | DRG 309 ==
LOC: ANHED 13:27 → ANHIMU 16:02
PROVIDERS: Physician Assistant; Admitting Provider Internal Medicine; Emergency Provider Emergency Medicine; PCP Internal Medicine; Visit Provider Family Medicine
DX: I48.91 Unspecified atrial fibrillation (principal); I13.0 Hypertensive heart and chronic kidney disease with heart failure and stage 1 through stage 4 chronic kidney disease, or unspecified chronic kidney disease; I50.32 Chronic diastolic (congestive) heart failure; E87.1 Hypo-osmolality and hyponatremia; N17.9 Acute kidney failure, unspecified; Z20.822 Contact with and (suspected) exposure to COVID-19; Z23 Encounter for immunization; R77.8 Other specified abnormalities of plasma proteins; N18.30 Chronic kidney disease, stage 3 unspecified; K21.9 Gastro-esophageal reflux disease without esophagitis; I25.10 Atherosclerotic heart disease of native coronary artery without angina pectoris; E78.5 Hyperlipidemia, unspecified; M10.9 Gout, unspecified; C61 Malignant neoplasm of prostate; E87.6 Hypokalemia; E86.0 Dehydration; D64.9 Anemia, unspecified; R73.9 Hyperglycemia, unspecified; R53.1 Weakness; Z79.01 Long term (current) use of anticoagulants; Z79.899 Other long term (current) drug therapy
CPT/HCPCS: 36415; 71045; 80048; 80053; 81001; 82533; 82550; 82607; 82728; 82746; 83036; 83540; 83550; 83735; 83880; 84443; 84484; 85025; 85027; 90471; 90653; 93005; 96361; 96365; 96366; 96367; 96375; 96376; 97161; 97165; 99285; A9270; C8929; C9803; G0008; G0378; J3480; J7030; Q9957; U0003

== ENCOUNTER 2022-05-20 12:10 | Outpatient (CLI) | payer MEDICARE, SELFPAY ==
[2022-05-20 13:07] LABS: Appearance Urine Clear (Clear); Bilirubin Urine Negative (Negative); Blood Urine Trace-intact (Negative); Color Urine Yellow (Yellow); Glucose Urine UA Negative (Negative); Ketones Urine Trace mg/dL (Negative); Leukocyte Esterase Ur Negative LEU/UL (Negative); Nitrate Urine Negative (Negative); Protein Urine 3+ mg/dL (Negative); Specific Grav Ur >= 1.030 (1.001-1.035); Urobilinogen Urine 0.2 mg/dL (<2.0); pH Urine 5.5 (5.0-9.0)
[2022-05-20 13:14] LABS: Calcium Oxalate Crystals Urine Present /hpf; Mucus Urine Moderate /lpf
[2022-05-20 13:19] LABS: Add Urine Microscopic? YES
[2022-05-20 13:43] LABS: Prostate Specific Antigen < 0.1 ng/mL (< OR = 4.0)
== END 2022-05-20 12:11 | disposition home or self-care (01) ==
PROVIDERS: PCP Internal Medicine
DX: C61 Malignant neoplasm of prostate (principal); R82.998 Other abnormal findings in urine
CPT/HCPCS: 36415; 81001; 84153

== ENCOUNTER 2022-07-21 12:06 | Outpatient (CLI) | payer MEDICARE, SELFPAY ==
[2022-07-21 13:49] LABS: Hematocrit 36.4 % (42.0-52.0); Hemoglobin 12.1 g/dL (14.0-18.0); Mean Corpuscular HGB Conc 33.2 g/dl (32-36); Mean Corpuscular Hemoglobin 30.3 pg (26-34); Mean Corpuscular Volume 91.2 fl (80-100); Mean Platelet Volume 10.2 fl (7.4-10.4); Platelet Count Result 174 k/mm3 (150-375); Red Blood Count 3.99 M/mm3 (4.6-6.20); Red Cell Distribution Width 14.4 % (11.5-14.5); White Blood Count 6.1 K/mm3 (4.5-10.0)
[2022-07-21 14:10] LABS: Complement C3 141 mg/dL (88-165)
[2022-07-21 14:13] LABS: Albumin Level 4.4 g/dL (3.5-5.1); Anion Gap 6 mmol/L (8-16); Blood Urea Nitrogen 23 mg/dL (9-20); Calcium 9.9 mg/dL (8.4-10.2); Carbon Dioxide 25 mmol/L (22-30); Chloride 109 mmol/L (98-107); Estimated Glomerular Filt Rate 34; Glucose 101 mg/dL (65-110); Phosphorus 3.9 mg/dL (2.5-4.5); Potassium 4.6 mmol/L (3.4-5.0); Sodium 140 mmol/L (137-145)
[2022-07-21 14:15] LABS: Appearance Urine Clear (Clear); Bacteria Urine None Seen /hpf; Bilirubin Urine Negative (Negative); Blood Urine Negative (Negative); Color Urine Dark Yellow (Yellow); Glucose Urine UA Negative (Negative); Hyaline Casts Urine Present /lpf; Ketones Urine Trace mg/dL (Negative); Leukocyte Esterase Ur Negative LEU/UL (NEGATIVE); Nitrate Urine Negative (Negative); Non Pathogenic Casts >20; Protein Urine 3+ mg/dL (Negative); RBC Urine 0-2 /hpf (0-2); Squamous Epithelial Cell Urine None seen /hpf (Few); WBC Urine 0-5 /hpf (0-3)
[2022-07-21 14:22] LABS: Creatinine Urine 411.3 mg/dL
[2022-07-21 14:23] LABS: Total Protein Urine Random 342 mg/dL; Ur Ttl Prot Creatinine Ratio 0.83 mg/mg (0-0.20)
[2022-07-21 14:28] LABS: Parathyroid Intact 140.6 pg/mL (7.5-53.5)
[2022-07-21 15:11] LABS: Add Urine Microscopic? YES
[2022-07-21 16:04] LABS: Erythrocyte Sedimentation Rate 47 mm/hr (0-20)
[2022-07-24 13:08] LABS: Kappa\\Lambda Light Chains 1.54 (0.26-1.65); Lambda Light Chain 29.1 mg/L (5.7-26.3)
[2022-07-24 18:37] LABS: Complement Total CH50 >60 U/mL (31-60)
== END 2022-07-21 12:07 | disposition home or self-care (01) ==
PROVIDERS: Visit Provider Internal Medicine Nephrology
DX: H10.31 Unspecified acute conjunctivitis, right eye (principal); N18.32 Chronic kidney disease, stage 3b
CPT/HCPCS: 36415; 80069; 81001; 82570; 83883; 83970; 84156; 85027; 85652; 86038; 86160; 86162; 86334

== ENCOUNTER 2022-07-23 06:57 | Outpatient (NON) | payer MEDICARE, SELFPAY ==
[2022-07-28 08:21] LABS: Magnesium, 24-Hour Urine 108
[2022-07-30 14:41] LABS: Albumin 75 %; Creat 24 Hr 1.18 g/24 h (0.50-2.15); Measured Lambda Chains <1.00 mg/dL (<2.00); Pro/Creat Ratio 726 mg/g creat (<100); Protein,total, 24 Hr Ur 858 mg/24 h (<100); Total Kappa Chains 208 mg/24 h
== END 2022-07-23 06:58 | disposition home or self-care (01) ==
PROVIDERS: Visit Provider Internal Medicine Nephrology
DX: N18.32 Chronic kidney disease, stage 3b (principal)
CPT/HCPCS: 83735; 86335

== ENCOUNTER 2022-11-14 10:12 | Outpatient (CLI) | payer MEDICARE, SELFPAY ==
[2022-11-14 11:03] LABS: Hematocrit 39.7 % (42.0-52.0); Hemoglobin 13.4 g/dL (14.0-18.0); Mean Corpuscular HGB Conc 33.8 g/dl (32-36); Mean Corpuscular Hemoglobin 29.7 pg (26-34); Mean Platelet Volume 10.4 fl (7.4-10.4); Platelet Count Result 221 k/mm3 (150-375); Red Blood Count 4.51 M/mm3 (4.6-6.20); Red Cell Distribution Width 14.1 % (11.5-14.5); White Blood Count 5.7 K/mm3 (4.5-10.0)
[2022-11-14 11:24] LABS: Creatinine Urine 110.6 mg/dL; Total Protein Urine Random 76 mg/dL; Ur Ttl Prot Creatinine Ratio 0.69 mg/mg (0-0.20)
[2022-11-14 11:25] LABS: Albumin Level 4.4 g/dL (3.5-5.1); Anion Gap 12 mmol/L (8-16); Blood Urea Nitrogen 27 mg/dL (9-20); Carbon Dioxide 24 mmol/L (22-30); Chloride 102 mmol/L (98-107); Estimated Glomerular Filt Rate 34; Glucose 117 mg/dL (65-110); Phosphorus 4.1 mg/dL (2.5-4.5); Potassium 3.9 mmol/L (3.4-5.0); Sodium 138 mmol/L (137-145)
[2022-11-14 11:29] LABS: Parathyroid Intact 201.1 pg/mL (7.5-53.5)
[2022-11-14 11:50] LABS: Vitamin D 25 Hydroxy 32.3 ng/mL
== END 2022-11-14 10:13 | disposition home or self-care (01) ==
PROVIDERS: Visit Provider Internal Medicine Nephrology
DX: H10.31 Unspecified acute conjunctivitis, right eye (principal); N18.32 Chronic kidney disease, stage 3b; E21.1 Secondary hyperparathyroidism, not elsewhere classified
CPT/HCPCS: 36415; 80069; 82306; 82570; 83970; 84156; 85027

== ENCOUNTER 2023-05-12 09:12 | Outpatient (CLI) | payer MEDICARE, SELFPAY ==
[2023-05-12 10:15] LABS: Hematocrit 35.5 % (42.0-52.0); Hemoglobin 11.7 g/dL (14.0-18.0); Mean Corpuscular Hemoglobin 28.5 pg (26-34); Mean Corpuscular Volume 86.4 fl (80-100); Mean Platelet Volume 9.7 fl (7.4-10.4); Platelet Count Result 197 k/mm3 (150-375); Red Blood Count 4.11 M/mm3 (4.6-6.20); Red Cell Distribution Width 15.9 % (11.5-14.5); White Blood Count 6.8 K/mm3 (4.5-10.0)
[2023-05-12 10:31] LABS: Albumin Level 4.1 g/dL (3.5-5.1); Anion Gap 10 mmol/L (8-16); Blood Urea Nitrogen 16 mg/dL (9-20); Calcium 9.3 mg/dL (8.4-10.2); Carbon Dioxide 25 mmol/L (22-30); Chloride 107 mmol/L (98-107); Estimated Glomerular Filt Rate 39; Glucose 122 mg/dL (65-110); Sodium 142 mmol/L (137-145)
[2023-05-12 10:39] LABS: Parathyroid Intact 281.4 pg/mL (7.5-53.5)
== END 2023-05-12 09:13 | disposition home or self-care (01) ==
LOC: ANHLAB 09:25
PROVIDERS: Visit Provider Internal Medicine Nephrology
DX: N18.32 Chronic kidney disease, stage 3b (principal); E21.1 Secondary hyperparathyroidism, not elsewhere classified
CPT/HCPCS: 36415; 80069; 81001; 83970; 85027

== ENCOUNTER 2023-05-12 09:29 | Outpatient (CLI) | payer MEDICARE, SELFPAY ==
[2023-05-12 10:44] LABS: Add Urine Microscopic? YES; Appearance Urine Cloudy (Clear); Bacteria Urine None Seen /hpf; Bilirubin Urine Negative (Negative); Blood Urine 1+ (Negative); Color Urine Dark Yellow (Yellow); Glucose Urine UA Trace mg/dL (Negative); Hyaline Casts Urine Present /lpf; Ketones Urine Negative (Negative); Leukocyte Esterase Ur Negative LEU/UL (Negative); Need Manual Microscopic Reviewed; Nitrate Urine Negative (Negative); Non Pathogenic Casts >20; Protein Urine 4+ mg/dL (Negative); Specific Grav Ur 1.029 (1.001-1.035); Squamous Epithelial Cell Urine Few /hpf (Few); WBC Urine 0-5 /hpf
== END 2023-05-12 09:30 | disposition home or self-care (01) ==
DX: R82.998 Other abnormal findings in urine (principal)
CPT/HCPCS: 81001

== ENCOUNTER 2023-07-14 13:03 | Outpatient (CLI) | payer MEDICARE, SELFPAY ==
[2023-07-14 15:17] LABS: Bacteria Urine None Seen /hpf; Need Manual Microscopic Reviewed; Non Pathogenic Casts 0-2; RBC Urine >100 /hpf (0-2)
[2023-07-14 15:37] LABS: Squamous Epithelial Cell Urine None Seen /hpf (Few)
[2023-07-14 15:45] LABS: Appearance Urine Cloudy (Clear); Color Urine Red (Yellow)
[2023-07-14 15:46] LABS: Add Urine Microscopic? YES
== END 2023-07-14 13:04 | disposition home or self-care (01) ==
DX: R31.0 Gross hematuria (principal)
CPT/HCPCS: 87086; 87088

== ENCOUNTER 2023-12-17 07:49 | Outpatient (CLI) | payer MEDICARE, SELFPAY ==
[2023-12-17 08:16] LABS: Hematocrit 33.5 % (42.0-52.0); Hemoglobin 11.2 g/dL (14.0-18.0); Mean Corpuscular HGB Conc 33.4 g/dl (32-36); Mean Corpuscular Volume 86.8 fl (80-100); Mean Platelet Volume 9.9 fl (7.4-10.4); Platelet Count Result 197 k/mm3 (150-375); Red Blood Count 3.86 M/mm3 (4.6-6.20); Red Cell Distribution Width 14.2 % (11.5-14.5); White Blood Count 5.7 K/mm3 (4.5-10.0)
[2023-12-17 08:36] LABS: Anion Gap 11 mmol/L (4-12); Blood Urea Nitrogen 25 mg/dL (9-20); Calcium 9.7 mg/dL (8.4-10.2); Carbon Dioxide 23 mmol/L (22-30); Chloride 107 mmol/L (98-107); Estimated Glomerular Filt Rate 34; Glucose 118 mg/dL (65-110); Phosphorus 3.8 mg/dL (2.5-4.5); Sodium 141 mmol/L (137-145)
[2023-12-17 09:25] LABS: Total Protein Urine Random 123 mg/dL
[2023-12-17 09:35] LABS: Parathyroid Intact 167.8 pg/mL (7.5-53.5)
[2023-12-17 09:41] LABS: Vitamin D 25 Hydroxy 20.3 ng/mL
== END 2023-12-17 07:50 | disposition home or self-care (01) ==
LOC: ANHLAB 07:53
PROVIDERS: Visit Provider Internal Medicine Nephrology
DX: H10.31 Unspecified acute conjunctivitis, right eye (principal); E21.1 Secondary hyperparathyroidism, not elsewhere classified; N18.32 Chronic kidney disease, stage 3b
CPT/HCPCS: 36415; 80069; 82306; 82570; 83970; 84156; 85027

== ENCOUNTER 2024-01-08 08:12 | Outpatient (CLI) | payer MEDICARE, SELFPAY ==
[2024-01-08 09:34] LABS: Anion Gap 12 mmol/L (4-12); Blood Urea Nitrogen 20 mg/dL (9-20); Calcium 9.9 mg/dL (8.4-10.2); Carbon Dioxide 25 mmol/L (22-30); Chloride 105 mmol/L (98-107); Estimated Glomerular Filt Rate 34; Glucose 129 mg/dL (65-110); Potassium 3.2 mmol/L (3.4-5.0); Sodium 142 mmol/L (137-145)
[2024-01-08 11:13] LABS: Vitamin D 25 Hydroxy 19.6 ng/mL
== END 2024-01-08 08:13 | disposition home or self-care (01) ==
LOC: ANHLAB 08:18
PROVIDERS: Visit Provider Internal Medicine Nephrology
DX: E21.1 Secondary hyperparathyroidism, not elsewhere classified (principal); E55.9 Vitamin D deficiency, unspecified; N18.32 Chronic kidney disease, stage 3b
CPT/HCPCS: 36415; 80048; 82306

== ENCOUNTER 2024-01-29 07:58 | Outpatient (CLI) | payer MEDICARE, SELFPAY ==
[2024-01-29 09:07] LABS: Anion Gap 11 mmol/L (4-12); Blood Urea Nitrogen 17 mg/dL (9-20); Calcium 9.5 mg/dL (8.4-10.2); Carbon Dioxide 23 mmol/L (22-30); Chloride 107 mmol/L (98-107); Estimated Glomerular Filt Rate 32; Glucose 114 mg/dL (65-110); Phosphorus 3.6 mg/dL (2.5-4.5); Potassium 2.9 mmol/L (3.4-5.0); Sodium 141 mmol/L (137-145)
== END 2024-01-29 07:59 | disposition home or self-care (01) ==
LOC: ANHLAB 08:00
PROVIDERS: Visit Provider Internal Medicine Nephrology
DX: N18.32 Chronic kidney disease, stage 3b (principal)
CPT/HCPCS: 36415; 80069

== ENCOUNTER 2024-02-08 08:56 | Outpatient (CLI) | payer MEDICARE, SELFPAY ==
[2024-02-08 09:36] LABS: Albumin Level 3.9 g/dL (3.5-5.1); Anion Gap 9 mmol/L (4-12); Blood Urea Nitrogen 26 mg/dL (9-20); Calcium 9.7 mg/dL (8.4-10.2); Carbon Dioxide 23 mmol/L (22-30); Chloride 107 mmol/L (98-107); Estimated Glomerular Filt Rate 29; Glucose 114 mg/dL (65-110); Phosphorus 3.8 mg/dL (2.5-4.5); Potassium 3.6 mmol/L (3.4-5.0); Sodium 139 mmol/L (137-145)
== END 2024-02-08 08:57 | disposition home or self-care (01) ==
PROVIDERS: Visit Provider Internal Medicine Nephrology
DX: E87.6 Hypokalemia (principal)
CPT/HCPCS: 36415; 80069

== ENCOUNTER 2024-04-16 09:09 | Outpatient (CLI) | payer MEDICARE, SELFPAY ==
[2024-04-16 10:07] LABS: Hematocrit 32.5 % (42.0-52.0); Hemoglobin 10.7 g/dL (14.0-18.0); Mean Corpuscular HGB Conc 32.9 g/dl (32-36); Mean Corpuscular Hemoglobin 28.2 pg (26-34); Mean Corpuscular Volume 85.5 fl (80-100); Mean Platelet Volume 9.6 fl (7.4-10.4); Platelet Count Result 190 k/mm3 (150-375); Red Cell Distribution Width 15.7 % (11.5-14.5); White Blood Count 5.7 K/mm3 (4.5-10.0)
[2024-04-16 10:19] LABS: Albumin Level 4.2 g/dL (3.5-5.1); Anion Gap 9 mmol/L (4-12); Blood Urea Nitrogen 25 mg/dL (9-20); Calcium 9.7 mg/dL (8.4-10.2); Carbon Dioxide 20 mmol/L (22-30); Chloride 111 mmol/L (98-107); Estimated Glomerular Filt Rate 24; Glucose 107 mg/dL (65-110); Phosphorus 3.9 mg/dL (2.5-4.5); Potassium 4.3 mmol/L (3.4-5.0); Sodium 140 mmol/L (137-145)
[2024-04-16 10:20] LABS: Creatinine Urine 98.2 mg/dL
[2024-04-16 10:31] LABS: Parathyroid Intact 155.9 pg/mL (14.5-75.2)
[2024-04-16 10:39] LABS: Total Protein Urine Random 374 mg/dL; Ur Ttl Prot Creatinine Ratio 3.81 mg/mg (0-0.20)
[2024-04-16 10:48] LABS: Vitamin D 25 Hydroxy 18.8 ng/mL
--- OUTSIDE RECORDS SUMMARY | 2024-04-20 01:04 | XMS_ITS | Continuity of Care Document ---
Author Organization [facility] [address] Address [address] [id number] Care Team Providers Care [place]rier Name Role Phone Courtney Prado Primary Care Physician [phone] Encounter [facility] Financial Number [id number] Date(s): 02/16/23 - 02/16/23 [facility] [address] [id number] Encounter Diagnosis Hypertension(Discharge Diagnosis) - 02/16/23 Hyperlipidemia(Discharge Diagnosis) - 02/16/23 CAD (coronary artery disease)(Discharge Diagnosis) - 02/16/23 CKD (chronic kidney disease), stage III(Discharge Diagnosis) - 02/16/23 S/P CABG x 1(Discharge Diagnosis) - 02/16/23 Ascending aorta dilation(Discharge Diagnosis) - 02/16/23 PAF (paroxysmal atrial fibrillation)(Discharge Diagnosis) - 02/16/23 S/P mitral valve repair(Discharge Diagnosis) - 02/16/23 Hypothyroidism(Discharge Diagnosis) - 02/16/23 History of prostate cancer(Discharge Diagnosis) - 02/16/23 S/P prostatectomy(Discharge Diagnosis) - 02/16/23 GERD with esophagitis(Discharge Diagnosis) - 02/16/23 Needs flu shot(Discharge Diagnosis) - 02/16/23 Discharge Disposition: Home or Self Care Attending Physician: Courtney Prado MD Allergies, Adverse Reactions, Alerts No Known Allergies Assessment and Plan Future Appointments Appointment Date:06/22/2023 11:30:00 AM Scheduled Provider:Jose Martin Lomas M.D. Location:[facility] Appointment Type:CCC EP Established Patient Cesilia Appointment Date:09/07/2023 10:00:00 AM Scheduled Provider:Kemi Daley MD Location:[facility] Appointment Type:NAWAF ORANTES Established Patient Appointment Date:09/07/2023 11:15:00 AM Scheduled Provider:Courtney Prado MD [facility] App[facility] Type:FRANCE ORANTES Established Patient Immunizations Given and Recorded Vaccine Date Status Refusal Reason influenza virus vaccine, inactivated 02/16/23 Give n influenza virus vaccine, live, trivalent 05/09/21 Recorded SARS-CoV-2 mRNA (5y-11y) vaccine 05/09/21 Recorded SARS-CoV-2 (COVID-19) mRNA BNT-162b2 vax 1 07/28/20 Recorded SARS-CoV-2 (COVID-19) mRNA BNT-162b2 vax 2 07/03/20 Recorded 1Result Comment: [place] [facility] 2Result Comment: [place] [facility] Medications allopurinol 100 mg oral tablet 100 mg, 1 tablet(s), Oral, bid, 180 tablet(s), 3, Route to Pharmacy Electronically, [facility] #[id number], [id number], 183, cm, 02/10/2022 1407, Height, 111.13, kg, 02/10/2022 1407, Weight Start Date: 05/06/22 Status: Ordered amLODIPine 10 mg oral tablet 10 mg, 1 tablet(s), Oral, daily, 90 tablet(s), Tablet(s), 3, 3, Route to Pharmacy Electronically, [facility] #[id number], [id number], 183, cm, 07/01/2022 1255, Height, 117, kg, 07/01/2022 1255, Weight Start Date: 08/25/22 Status: Ordered aspirin 81 mg oral enteric coated tablet 81 mg, 1 tablet(s), Oral, daily, Tab EC, 0 Start Date: 07/05/20 Status: Ordered atorvastatin 40 mg oral tablet 40 mg, 1 tablet(s), Oral, qhs, 30 tablet(s), Tablet(s), 0 Start Date: 11/23/22 Status: Ordered cloNIDine 0.1 mg oral tablet 0.1 mg, 1 tablet(s), Oral, bid, 180 tablet(s), Tablet(s), 3, 3, Route to Pharmacy Electronically, [facility] #[id number], [id number], 183, cm, 07/01/2022 1255, Height, 117, kg, 07/01/2022 1255, Weight Start Date: 07/02/22 Stop Date: 06/27/23 Status: Ordered ezetimibe 10 mg oral tablet 1 tablet(s), Oral, daily, 90 tablet(s), 3, 3, [id number], [id number], 183, cm, 09/01/2022 1142, Height, 119, kg, 09/01/2022 1142, Weight Start Date: 10/14/22 Stop Date: 10/09/23 Status: Ordered levothyroxine 50 mcg (0.05 mg) oral tablet 50 mcg, 1 tablet(s), Oral, daily before breakfast, 90 tablet(s), Tablet(s), 3, 3, Route to PharmacyElectronically, [facility] #[id number], [id number], 183, cm, 09/01/2022 1142, Height, 119, kg, 09/01/2022 1142, Weight Start Date: 11/18/22 Status: Ordered Lidocaine Viscous 2% mucous membrane solution 0.3 gm, 15 mL, Oral, qid, PRN, 100 mL, For Sore Throat, Gargle and spit Start Date: 11/23/22 Status: Ordered Lupron mg, 0 Start Date: 12/05/21 Status: Ordered Metoprolol Tartrate 50 mg oral tablet 1 tablet(s), Oral, bid, 180 tablet(s), 2, Route to Pharmacy Electronically, [facility] #[id number], [id number], 182, cm, 11/24/22 13:26:00 CDT, Height, 106, kg, 11/23/22 12:54:00 CDT, Weight Start Date: 12/24/22 Status: Ordered MiraLax oral powder for reconstitution 1 packet(s), Oral, daily, PRN, REC Powder, 0, constipation Start Date: 08/20/20 Status: Ordered pantoprazole 40 mg oral delayed release tablet 40 mg, 1 tablet(s), Oral, bid before meals, 180 tablet(s), Tab EC, 0, 0, Route to Pharmacy Electronically, [facility] #[id number], [id number], 182, cm, 11/24/2022 1326, Height, 106, kg, 11/23/2022 1254, Weight Start Date: 11/25/22 Stop Date: 02/23/23 Status: Ordered sucralfate 1 g/10 mL oral suspension 1 gm, 10 mL, Oral, qid, 1,200 mL, Susp, 0, 0, Route to Pharmacy Electronically, [facility] #[id number], [id number], 182, cm, 11/24/2022 1326, Height, 106, kg, 11/23/2022 1254, Weight Start Date: 11/25/22 Stop Date: 12/25/22 Status: Ordered Tylenol 500 mg, Oral, [id number], PRN, 0, pain, mild Start Date: 11/23/22 Status: Ordered Problem List Condition Confirmation Course Effective Dates Status H ealth Status Informant Anemia of chronic disease Confirmed Active Ascending aorta dilation Confirmed Active CKD (chronic kidney disease), stage III Confirmed Active CAD (coronary artery disease) Confirmed Active Gall stone Confirmed Active GERD with esophagitis Confirmed Active Gout Confirmed Active S/P prostatectomy Confirmed Active Large hiatal hernia Confirmed Active S/P CABG x 1 Confirmed Active History of endocarditis Confirmed Active History of prostate cancer Confirmed Active History of radiation therapy 1 Confirmed Active S/P mitral valve repair Confirmed Active Hypercalcemia Confirmed Active Hyperlipidemia Confirmed Active Hypertension Confirmed Active Hypothyroidism Confirmed Active Trouble in sleeping Confirmed Active Prostate cancer Confirmed Active Needs flu shot Confirmed Active PAF (paroxysmal atrial fibrillation) Confirmed Active Medication monitoring encounter Confirmed Active Proteinuria Confirmed Active 1Prostate and pelvic lymph nodes completed 10/25/2022 Procedures Procedure Date Related Diagnosis Body Site Status Repair of diaphragmatic hiatal hernia 11/23/22 Completed UPPER GI ENDOSCOPY PERFORMED 2022 Completed Biopsy of prostate Comple mary Cardiac catheterization C ompleted cardiac stents 2 Complete d Prostatectomy Completed 2018 Vital Signs Most recent to oldest [Reference Range]: 1 Temperature Temporal Artery [35.8-38 Deg C] 35.9 DegC (02/16/23 1:04 PM) Peripheral Pulse Rate [60-100 bpm] 56 bp m *L* (02/16/23 1:04 PM) Blood Pressure [89-139/60-90 mm Hg] 122/ 72mm Hg (02/16/23 1:04 PM) Height 183 cm (02/16/23 1:04 PM) Weight 110.5 kg (02/16/23 1:04 PM) Social History Social History Type Response Alcohol Never alcohol user Substance Abuse Never drug user Smoking Status Never smoker;Never; Tobacco Cessation Counseling Requested No entered on: 11/23/22 Sex Male Implantable Device List Procedure Provider Procedure Date Device Type Site Sternal Plating Unknown 07/11/20 Unknown Unknown Device Identifier Serial Number Lot or Batch Number Manufacturing Date Expiration Date Distinct Identification Code MRI Safety Implantable Status Assigning Authority Unknown Unknown Unknown Unknown Unknown Unknown Unknown Active Unk nown Procedure Provider Procedure Date Device Type Site Sternal Plating Unknown 07/11/20 Unknown Unknown Device Identifier Serial Number Lot or Batch Number Manufacturing Date Expiration Date Distinct Identification Code MRI Safety Implantable Status Assigning Authority Unknown Unknown Unknown Unknown Unknown Unknown Unknown Active Unk nown Unknown Unknown Unknown Unknown Unknown Unknown Unknown Active Unk nown Unknown Unknown Unknown Unknown Unknown Unknown Unknown Active Unk nown Procedure Provider Procedure Date Device Type Site Atrial Appendage Exclusion Left Unknown 07/11/20 Unkn own Unknown Device Identifier Serial Number Lot or Batch Number Manufacturing Date Expiration Date Distinct Identification Code MRI Safety Implantable Status Assigning Authority Unknown Unknown [id number] Unknown 03/04/23 Unknown Unknown Active Unkn own Procedure Provider Procedure Date Device Type Site Mitral Valve Annuloplasty Unknown 07/11/20 Unknown Unknown Device Identifier Serial Number Lot or Batch Number Manufacturing Date Expiration Date Distinct Identification Code MRI Safety Implantable Status Assigning Authority [id number] 978 [id number] Unknown Unknown 03/13/24 Unknown MR Conditi onal Active GS1 Goals Prevent Readmission Through Ongoing Care Managem ent Start Date:08/21/20 End Date: Status:Met Progression:Met I will Learn to Self-Manage Heart Failure Symptoms for 2 mos Start Date:08/21/20 End Date: Status:Met Progression:Met Follows Heart Failure Self-Management Plan Start Date:08/21/20 End Date: Status:Met Progression:Met Follows Action Plan Appropri ately, Worse or Warning Symptoms Start Date:05/28/20 End Date: Status:Met Progression:Met Prevent Readmission Through Ongoing Care Managem ent Start Date:05/28/20 End Date: Status:Met Progression:Met Note * Event Display: ROI_Correspondence * Event Display: ROI_Correspondence Authored Date: [id number] * Event Display: ROI_Correspondence * Event Display: ROI_Correspondence Internal medicine Outpatient Note * Courtney Prado MD: PERFORM Event Display: Internal Medicine Office/Clinic Note Authored Date: [id number] Patient Information Name:SHANON BROWN Address: [address] [place] [phone] Sex:Male Date of :1945 Emergency Contact:FREDA REYES Location:[facility] [address] Registration Date and Time:02/16/2023 12:50 CDT Primary Care Physician: Courtney Praod MD, Attending Physician: Courtney Prado MD, Chief Complaint Establish Care (ref by Dr. Sesay) History of Present Illness Mr. Navas??Eduard??is a pleasant??77-year-old gentleman??who is new to my practice??and he is here to establish care with me today.?? He was referred by Dr Sesay.?? Patient had??undergone??single-vessel CABG??(RODRIGUEZ to LAD)??and mitral valve repair??surgery??by him in the past. He has hypertension, hyperlipidemia, coronary artery disease, paroxysmal atrial fibrillation??and is followed by bacteriologist pharmaceutical??Dr. Jose Martin Lomas.?? Also has??CKD stage III??for which she is followed by Dr. Cuevas, bill checker. For hypothyroidism he is followed by??carbon paper coating machine setter Dr Daley. Patient??was hospitalized??back in November??with vomiting??and also had??coffee- ground??emesis. ??Underwent??upper endoscopy??which showed esophagitis??and hiatal hernia.?? Patient was placed on??high-dose PPI treatment. ??He continues to take the PPI medication??and is scheduled to follow-up with ??who will repeat endoscopy??as planned.?? Currently he is not having any??esophagitis symptoms. Patient also??had prostate cancer??and had prostatectomy surgery??and radiation treatment.?? He just completed Lupron injection treatment??by his urologist??and also followed by??radiation oncologistDr Cruz. Review of Systems GENERAL: No significant wt loss or wt gain, no fever or chills HEENT: No hearing problems or pain in ears, nose ??or throat,??was having left ear tinnitus??and followed by ENT??had steroid injection treatment in left ear RESPIRATORY: No cough, SOB or Wheezing, no pleuritic chest pain CVS: No chest pain, exertional dyspnea, palpitation, dizziness or syncope GI: No abdominal pain, nausea, vomiting, diarrhea or blood in stool MUSCULOSKELETAL: No joint pain or swelling or redness of joints SKIN:??Sun spots??and actinic keratosis : No dysuria, no incontinence,no blood in urine?? NEUROLOGICAL: No dizziness, headache or visual changes. No focal weakness or sensory disturbance PSYCHIATRIC: No depression, suicidal or homicidal thoughts, no mood swings Vitals and Measurements Vital Signs Height: 183 cm Height Inches Conversion: 72 Weight: 110.5 kg Weight in Pounds (kg conversion): 243.1 Body Mass Index: 33 kg/m2 Temperature Temporal Artery: 35.9 DegC Systolic Blood Pressure: 122 mm Hg Diastolic Blood Pressure: 72 mm Hg Peripheral Pulse Rate:??56 bpm??Low Oxygen Saturation: 97 % HRA Pain Present: No Physical Exam General Examination GENERAL APPEARANCE: Overall appearance is appropriate for patient???s age,??pleasant??elderly gentleman well developed and well nourished, in no acute distress.? EYES: extra ocular muscles intact (EOMI) bilaterally, pupils, equal, round, reactive to light and accommodation (PERRLA), sclera clear.?? HEENT: Head - normocephalic/atraumatic, EARS: tympanic membranes normal, external auditory canals clear,??status post??steroid injection treatment in the left ear NOSE: Exam deferred ORAL CAVITY: Exam deferred NECK/THYROID: no carotid bruit, no jugular venous distention (JVD), no lymphadenopathy, no thyromegaly.?? CARDIOVASCULAR: regular rate and rhythm, normal S1S2, no murmurs, gallops or rubs.?? CHEST: Sternotomy scar well-healed RESPIRATORY: normal breath sounds, no wheezes, rhonchi, rales.?? GASTROINTESTINAL: soft, non-tender/non-distended, bowel sounds present.?? SKIN:??Status post removal of precancerous skin lesions??from scalp EXTREMITIES: no clubbing, cyanosis, or edema.?? PERIPHERAL PULSES: normal (2+) bilaterally.?? LYMPH NODES: No palpable adenopathy.?? RECTAL: Deferred BACK: No spinal tenderness. MUSCULOSKELETAL: No joint pain or redness or swelling of joints. NEUROLOGIC EXAM: Alert and orientated?3, cranial nerves II-XII grossly intact, DTR???s 2+ bilaterally and symmetric, no motor/sensory deficit. Gait normal. PSYCHIATRIC: Normal affect, no suicidal or homicidal ideations or thoughts,?? good eye contact. Assessment/Plan 1.??Hypertension Blood pressure is stable. ??Continue current med regimen. ??Followed by bacteriologist pharmaceutical Dr. Lomas. ?? 2.??Hyperlipidemia Follow low-fat low-cholesterol heart healthy diet??and continue with??ezetimibe and atorvastatin treatment. ?? 3.??CKD (chronic kidney disease), stage III Followed by bill checker.?? Avoid nephrotoxic agents or drugs.?? Renal function is monitored by??Dr. Cuevas. ?? 4.??CAD (coronary artery disease) Followed by bacteriologist pharmaceutical. ??Denies angina symptoms. ?? 5.??S/P CABG x 1 Followed by??Dr Sesay.?? Not having any acute issues. ?? 6.??S/P mitral valve repair Not having any acute issues. ??Followed by cardiothoracic surgeon and bacteriologist pharmaceutical. ?? 7.??Ascending aorta dilation Monitored and followed by cardiothoracic surgeon bacteriologist pharmaceutical. ?? 8.??PAF (paroxysmal atrial fibrillation) Currently rhythm is stable. ?? 9.??Hypothyroidism Followed by Dr Daley.?? Continue levothyroxine treatment. ?? 10.??GERD with esophagitis Follow reflux precautions.?? Continue with PPI treatment and follow-up with cellophane press operator Dr. Cruz. ?? 11.??History of prostate cancer Had prostatectomy surgery followed by radiation treatment??and??Lupron injection treatment.?? Followed by urologist and radiation oncologist. ?? 12.??S/P prostatectomy Followed by urologist. ?? 13.??Needs flu shot High-dose flu shot today. Ordered: influenza virus vaccine, inactivated, 0.7 mL, Injection, IntraMuscular, Once, 02/16/23 13:30:00 CDT, Stop date 02/16/23 13:30:00 CDT, 02/16/23 13:27:00 CDT ?? Follow-up??in 6 months Problem List/Past Medical History Ongoing Anemia of chronic disease Ascending aorta dilation CAD (coronary artery disease) CKD (chronic kidney disease), stage III Gall stone GERD with esophagitis Gout History of endocarditis History of prostate cancer History of radiation therapy Hypercalcemia Hyperlipidemia Hypertension Hypothyroidism Large hiatal hernia Medication monitoring encounter Needs flu shot PAF (paroxysmal atrial fibrillation) Prostate cancer Proteinuria S/P CABG x 1 S/P mitral valve repair S/P prostatectomy Trouble in sleeping Historical No qualifying data Procedure/Surgical History ???Repair of diaphragmatic hiatal hernia (11/23/2022)???UPPER GI ENDOSCOPY PERFORMED (2022)???Biopsy of prostate???Cardiac catheterization???cardiac stents???Prostatectomy Medications Unchanged acetaminophen (Tylenol)500 Milligram By mouth every 6 hours as needed pain, mild. allopurinol (allopurinol 100 mg oral tablet)1 tablet(s) By mouth 2 times a day. Refills: 3. amLODIPine (amLODIPine 10 mg oral tablet)1 tablet(s) By mouth daily. Refills: 3. aspirin (aspirin 81 mg oral enteric coated tablet)1 tablet(s) By mouth daily. atorvastatin (atorvastatin 40 mg oral tablet)1 tablet(s) By mouth every evening at bedtime. cloNIDine (cloNIDine 0.1 mg oral tablet)1 tablet(s) By mouth 2 times a day for 90 day(s). Refills: 3. ezetimibe (ezetimibe 10 mg oral tablet)1 tablet(s) By mouth daily for 90 day(s). Refills: 3. leuprolide (Lupron) levothyroxine (levothyroxine 50 mcg (0.05 mg) oral tablet)1 tablet(s) By mouth daily before breakfast. Refills: 3. lidocaine topical (Lidocaine Viscous 2% mucous membrane solution)15 Milliliter By mouth 4 times a day as needed For Sore Throat. Gargle and spit. metoprolol (Metoprolol Tartrate 50 mg oral tablet)1 tablet(s) By mouth 2 times a day. Refills: 2. pantoprazole (pantoprazole 40 mg oral delayed release tablet)1 tablet(s) By mouth 2 times a day before meals for 90 day(s). Refills: 0. polyethylene glycol 3350 (MiraLax oral powder for reconstitution)1 packet(s) By mouth daily as needed constipation. sucralfate (sucralfate 1 g/10 mL oral suspension)10 Milliliter By mouth 4 times a day for 30 day(s). Refills: 0. Immunizations Vaccine Date Statusinfluenza virus vaccine, live, trivalent 05/09/2021 Recorded SARS-CoV-2 mRNA (5y-11y) vaccine 05/09/2021 Recorded SARS-CoV-2 (COVID-19) mRNA BNT-162b2 vax 07/28/2020 Recorded SARS-CoV-2 (COVID-19) mRNA BNT-162b2 vax 07/03/2020 Recorded Allergies NKA Social History Alcohol Never alcohol user, 11/23/2022 Substance Abuse Never drug user, 02/16/2023 Tobacco Never smoker, Smokeless Tobacco use: Never. No Cessation Counseling., 11/23/2022 Family History ?Mother ?Positive ?Family members ?Father ?Positive ?Family members ?Father ?Positive ?Heart attack ?Father ?Positive ?Heart disease ?Mother ?Positive ?Stroke ? POC Results Event Name?? Event Result?? Date/Time?? Oxygen Saturation 97 % 02/16/23 13:04:00 ? Voice to Text Technology Disclaimer This note may contain text inserted via Dragon or other voice to text assistive technology and manager of data, variances may occur. Outpatient Summary note * Essie Landon MA-MR: PERFORM Event Display: Ambulatory Patient Summary Authored Date: [id number] SHANON BROWN :1945 Visit Date:02/16/2023 [facility] Visit Instructions Your Diagnosis Hypertension Hyperlipidemia CKD (chronic kidney disease), stage III CAD (coronary artery disease) S/P CABG x 1 S/P mitral valve repair Ascending aorta dilation PAF (paroxysmal atrial fibrillation) Hypothyroidism GERD with esophagitis History of prostate cancer S/P prostatectomy Needs flu shot Your Care Team Attending Physician - Courtney Prado MD Primary Care Physician - Courtney Prado MD Procedure History ???Repair of diaphragmatic hiatal hernia (11/23/2022)???UPPER GI ENDOSCOPY PERFORMED (2022)???Biopsy of prostate???Cardiac catheterization???cardiac stents???Prostatectomy Discharge Vitals Vital Signs Height: 183 cm Height Inches Conversion: 72 Weight: 110.5 kg Weight in Pounds (kg conversion): 243.1 Body Mass Index: 33 kg/m2 Temperature Temporal Artery: 35.9 DegC Systolic Blood Pressure: 122 mm Hg Diastolic Blood Pressure: 72 mm Hg Peripheral Pulse Rate:??56 bpm??Low Oxygen Saturation: 97 % HRA Pain Present: No What to do next Scheduled Follow-Up Appointments Thursday 11:30 AM 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 With: Jose Martin Lomas M.D. Where: [facility] [address] [place], [place] [phone] Thursday 10:00 AM CDT ?? With: Kemi Daley MD Where: [facility] [address] Thursday 11:15 AM CDT ?? With: Courtney Prado MD Where: [facility] [address] [place], [place] [phone] Referral Information Referral Information ? No Results Found ? Medications What How Much When Instructions Unchanged acetaminophen (Tylenol) 500 Milligram By mouth Every 6 hours as needed for pain, mild Unchanged allopurinol (allopurinol 100 mg oral tablet) 1 tablet(s) By mouth 2 times a day Unchanged amLODIPine (amLODIPine 10 mg oral tablet) 1 tablet(s) By mouth Daily Unchanged aspirin (aspirin 81 mg oral enteric coated tablet) 1 tablet(s) By mouth Daily Unchanged atorvastatin (atorvastatin 40 mg oral tablet) 1 tablet(s) By mouth Every evening at bedtime Unchanged cloNIDine (cloNIDine 0.1 mg oral tablet) 1 tablet(s) By mouth 2 times a day Duration: 90 day(s) Unchanged ezetimibe (ezetimibe 10 mg oral tablet) 1 tablet(s) By mouth Daily Duration: 90 day(s) Unchanged leuprolide (Lupron) Unchanged levothyroxine (levothyroxine 50 mcg (0.05 mg) oral tablet) 1 tablet(s) By mouth Daily before breakfast Unchanged lidocaine topical (Lidocaine Viscous 2% mucous membrane solution) 15 Milliliter By mouth 4 times a day as needed for For Sore Throat Gargle and spit ?? Unchanged metoprolol (Metoprolol Tartrate 50 mg oral tablet) 1 tablet(s) By mouth 2 times a day Unchanged pantoprazole (pantoprazole 40 mg oral delayed release tablet) 1 tablet(s) By mouth 2 times a day before meals Duration: 90 day(s) Unchanged polyethylene glycol 3350 (MiraLax oral powder for reconstitution) 1 packet(s) By mouth Daily as needed for constipation Unchanged sucralfate (sucralfate 1 g/ 10 mL oral suspension) 10 Milliliter By mouth 4 times a day Duration: 30 day(s) Medications and Immunizations Administered Medication Administrations ? No Results Found ? Allergies NKA Problems Ongoing Anemia of chronic disease Ascending aorta dilation CAD (coronary artery disease) CKD (chronic kidney disease), stage III Gall stone GERD with esophagitis Gout History of endocarditis History of prostate cancer History of radiation therapy Hypercalcemia Hyperlipidemia Hypertension Hypothyroidism Large hiatal hernia Medication monitoring encounter Needs flu shot PAF (paroxysmal atrial fibrillation) Prostate cancer Proteinuria S/P CABG x 1 S/P mitral valve repair S/P prostatectomy Trouble in sleeping PatientStated No qualifying data Historical No qualifying data Common Emergency Awareness Tips IS IT A STROKE? Act FAST and Check for these signs: FACE Does the face look uneven? ARM Does one arm drift down? SPEECH Does their speech sound strange? TIME Call at any sign of stroke Voice to Text Technology Disclaimer This note may contain text inserted via Dragon or other voice to text assistive technology and manager of data, variances may occur. Patient Care team information Care Team Personnel Name: Jada Reynaga MD Position: Physician - Cardiology Member Role: Specialist Physician Address: Address: [address] [place] [address] [place] Name: Nancy Suresh Specialist Position: Population Health Coordinator Member Role: Population Health Coordinator Name: Khoi Hendrickson Role: Urologist Name: Kenia Gregory M.D. Position: Physician - Endocrine Member Role: Estate And Trust Tax Principal Address: Address: [address] [place], [place] [phone] [place] Name: Vlad Varner MD Position: Physician - Electrophysiology Member Role: Specialist Physician Address: Address: [address] [place] [address] [place] Name: Gab Marquez M.D. Position: Physician - Infectious Disease Member Role: Infectious Disease Address: Address: [address] [facility] [address] [place] [address] [place] Name: Sheron Lamb SPECIALIST II Position: Population Health Coordinator Member Role: Population Health Coordinator Name: Yonas Clements MD Position: Physician - Electrophysiology Member Role: Specialist Physician Address: Address: [address] [place] [address] [place] Name: Mark Sesay M.D. Position: Physician - Cardiothoracic Surgery Member Role: Specialist Physician Address: Address: [address] [place], [place] [address]- Name: Courtney Prado MD Position: Physician - Internal Medicine Member Role: Primary Care Physician Address: Address: [address] [place] [address] [place] Name: Fritz Oreilly MD Position: Physician - Infectious Disease Member Role: Specialist Physician Address: Address: [address] [facility] [address] [place], [place] [id number] [place] Name: Jose Martin Lomas M.D. Position: Physician - Cardiology Member Role: Specialist Physician Address: Address: [facility] [address] [facility] [address] [place] [address] [place] Name: Macy Ansari RN Position: AMB ONC Nurse Navigator Member Role: Nurse Navigator Name: Courtney Prado MD Position: Physician - Internal Medicine Med Service: Distance Education Director [place] Role: Attending Physician Address: Address: [address] [place] [address] [place] Care Team Related Persons Name: JL BROWER Name: ALLAN VALDES Name: FREDA REYES
--- OUTSIDE RECORDS SUMMARY | 2024-04-20 01:04 | XMS_ITS | Continuity of Care Document ---
Author Organization [facility] Address [address] [id number] Care Team Providers Care Laser Set Up Operator Name Role Phone Courtney Prado Primary Care Physician Encounter [facility] Financial Number [id number] Date(s): 08/07/23 - 08/07/23 [facility] [address] [id number] Discharge Disposition: Home or Self Care Attending Physician: Jose Martin Lomas M.D. Allergies, Adverse Reactions, Alerts No Known Allergies Assessment and Plan Future Appointments Appointment Date:09/07/2023 10:00:00 AM Scheduled Provider:Kemi Daley MD Location:[facility]S Appointment Type:[facility] ORANTES Established Patient Appointment Date:09/07/2023 11:15:00 AM Scheduled Provider:Courtney Prado MD Location:[facility] Appointment Type:[facility] ORANTES Established Patient Appointment Date:10/01/2023 02:45:00 PM Scheduled Provider: Location:[facility] Appointment Type:CCC NV Nurse Visit Cesilia Appointment Date:10/12/2023 11:20:00 AM Scheduled Provider:Jeromy Perez MD Location:[facility] Appointment Type:USSL Established Patient 20mins Appointment Date:10/20/2023 03:15:00 PM Scheduled Provider:Courtney Prado MD Location:[facility] Appointment Type:[facility] ORANTES Established Patient Immunizations Given and Recorded Vaccine Date Status Refusal Reason influenza virus vaccine, inactivated 02/16/23 Give n influenza virus vaccine, live, trivalent 05/09/21 Recorded SARS-CoV-2 mRNA (5y-11y) vaccine 05/09/21 Recorded SARS-CoV-2 (COVID-19) mRNA BNT-162b2 vax 1 07/28/20 Recorded SARS-CoV-2 (COVID-19) mRNA BNT-162b2 vax 2 07/03/20 Recorded 1Result Comment: Pamela Az 2Result Comment: [place] Medications allopurinol 100 mg oral tablet 100 mg, 1 tablet(s), Oral, bid, 180 tablet(s), 2, 2, Route to Pharmacy Electronically, [facility] #[id number], [id number], 183, cm, 02/16/23 13:04:00 CDT, Height, 110.5, kg, 02/16/23 13:04:00 CDT, Weight Start Date: 05/15/23 Stop Date: 02/09/24 Status: Ordered amLODIPine 10 mg oral tablet 10 mg, 1 tablet(s), Oral, daily, 90 tablet(s), Tablet(s), 3, 3, Route to Pharmacy Electronically, [facility] #[id number], [id number], 183, cm, 07/01/2022 1255, Height, 117, kg, 07/01/2022 1255, Weight Start Date: 08/25/22 Status: Ordered aspirin 81 mg oral enteric coated tablet 81 mg, 1 tablet(s), Oral, daily, Tab EC, 0 Start Date: 07/05/20 Status: Ordered atorvastatin 80 mg oral tablet 1 tablet(s), Oral, daily, 90 tablet(s), 3, Route to Pharmacy Electronically, [facility] #[id number], [id number], 183, cm, 02/16/23 13:04:00 CDT, Height, 110.5, kg, 02/16/23 13:04:00 CDT, Weight Start Date: 07/13/23 Status: Ordered cloNIDine 0.1 mg oral tablet 1 tablet(s), Oral, bid, 180 tablet(s), 2, 2, Route to Pharmacy Electronically, [facility]#[id number], [id number], 183, cm, 02/16/23 13:04:00 CDT, Height, 110.5, kg, 02/16/23 13:04:00 CDT, Weight Start Date: 08/06/23 Stop Date: 05/02/24 Status: Ordered ezetimibe 10 mg oral tablet 1 tablet(s), Oral, daily, 90 tablet(s), 3, 3, Route to Pharmacy Electronically, [facility] #[id number], [id number], 183, cm, 09/01/2022 1142, Height, 119, kg, 09/01/2022 1142, Weight Start Date: 10/14/22 Stop Date: 10/09/23 Status: Ordered gabapentin 100 mg oral capsule 100 mg, 1 capsule(s), Oral, tid, 90 capsule(s), Capsule(s), 0, 0, Route to Pharmacy Electronically,[facility] #[id number], [id number], 183, cm, 02/16/23 13:04:00 CDT, Height, 110.5, kg, 02/16/23 13:04:00 CDT, Weight Start Date: 03/23/23 Stop Date: 04/22/23 Status: Ordered Gemtesa 75 mg oral tablet 75 mg, 1 tablet(s), Oral, daily, 30 tablet(s), 3, 3, Route to Pharmacy Electronically, [facility] #[id number], [id number], 183, cm, 02/16/23 13:04:00 CDT, Height, 110.5, kg, 02/16/23 13:04:00 CDT, Weight Start Date: 07/20/23 Stop Date: 11/17/23 Status: Ordered levothyroxine 50 mcg (0.05 mg) oral tablet 50 mcg, 1 tablet(s), Oral, daily before breakfast, 90 tablet(s), Tablet(s), 3, 3, Route to PharmacyElectronically, [facility] #[id number], [id number], 183, cm, 09/01/2022 1142, Height, 119, kg, [...] 180 tablet(s), 2, Route to Pharmacy Electronically, [facility] #[id number], [id number], 182, cm, 11/24/22 13:26:00 CDT, Height, 106, kg, 11/23/22 12:54:00 CDT, Weight Start Date: 12/24/22 Status: Ordered MiraLax oral powder for reconstitution 1 packet(s), Oral, daily, PRN, REC Powder, 0, constipation Start Date: 08/20/20 Status: Ordered pantoprazole 40 mg oral delayed release tablet 40 mg, 1 tablet(s), Oral, bid before meals, 180 tablet(s), Tab EC, 0, 0, Route to Pharmacy Electronically, [facility] #[id number], [id number], 182, cm, 11/24/2022 1326, Height, 106, kg, 11/23/2022 1254, Weight Start Date: 11/25/22 Stop Date: 02/23/23 Status: Ordered sucralfate 1 g/10 mL oral suspension 1 gm, 10 mL, Oral, qid, 1,200 mL, Susp, 0, 0, Route to Pharmacy Electronically, [facility] #[id number], [id number], 182, cm, 11/24/2022 1326, Height, 106, kg, 11/23/2022 1254, Weight Start Date: 11/25/22 Stop Date: 12/25/22 Status: Ordered Toviaz 4 mg oral tablet, extended release 4 mg, 1 tablet(s), Oral, daily, 30 tablet(s), Tablet CR, 0, 0, Route to Pharmacy Electronically, [facility] #[id number], [id number], 183, cm, 02/16/23 13:04:00 CDT, Height, 110.5, kg, 02/16/23 13:04:00 CDT, Weight Start Date: 07/27/23 Status: Ordered Tylenol 500 mg, Oral, i5dotgb, PRN, 0, pain, mild Start Date: 11/23/22 Status: Ordered Problem List Condition Confirmation Course Effective Dates Status H ealth Status Informant Anemia of chronic disease Confirmed Active Ascending aorta dilation Confirmed Active CKD (chronic kidney disease), stage III Confirmed Active CAD (coronary artery disease) Confirmed Active Edema of right lower extremity Confirmed Active Gall stone Confirmed Active GERD [...] Confirmed Active Medication monitoring encounter Confirmed Active Post herpetic neuralgia Confirmed Active Proteinuria Confirmed Active 1Prostate and pelvic lymph nodes completed 10/25/2022 Procedures Procedure Date Related Diagnosis Body Site Status Repair of diaphragmatic hiatal hernia 11/23/22 Completed UPPER GI ENDOSCOPY PERFORMED 2022 Completed Biopsy of prostate Comple mary Cardiac catheterization C ompleted cardiac stents 2 Complete d Prostatectomy Completed 2018 Social History Social History Type Response Alcohol [...] Safety Implantable Status Assigning Authority Unknown Unknown [id number] Unknown 03/04/23 Unknown Unknown Active Unkn own Procedure Provider Procedure Date Device Type Site Mitral Valve Annuloplasty Unknown 07/11/20 Unknown Unknown Device Identifier Serial Number Lot or Batch Number Manufacturing Date Expiration Date Distinct Identification Code MRI Safety Implantable Status Assigning Authority [id number] Unknown Unknown 03/13/24 Unknown MR Conditi onal [...] Date:05/28/20 End Date: Status:Met Progression:Met Note * [facility] [employer] Commentator: PERFORM Event Display: ROI_Correspondence Authored Date: [id number] * Event Display: ROI_Correspondence * Event Display: ROI_Correspondence Authored Date: [id number] Patient Care team information Care Team Personnel Name: Jada Reynaga MD Position: Physician - Cardiology Member Role: Specialist Physician Address: Address: [address] [place] [address] [place] [address] [place] Name: Nancy Suresh Specialist Position: Population Health Coordinator Member Role: Population Health Coordinator Name: Khoi Hendrickson Member Role: Urologist Name: Kenia Gregory M.D. Position: Physician - Endocrine Member Role: Pony Ride Operator Address: Address: [address] [facility] [address] [place], [place] [id number] [place] Name: Vlad Varner MD Position: Physician - Electrophysiology Member Role: Specialist Physician Address: Address: [address] [place] [address] [place] Name: Jeromy Perez MD Position: Physician - Urology Member Role: Urologist Address: Address: [address] [place] [address] [place] Name: Gab Marquez M.D. Position: Physician - Infectious Disease Member Role: Infectious Disease Address: Address: [address] [facility] Name: Sheron Lamb SPECIALIST II Position: Population Health Coordinator Member Role: Population Health Coordinator Name: Yonas Clements MD Member Role: Specialist Physician Name: Mark Sesay M.D. Position: Physician - Cardiothoracic Surgery Member Role: Specialist Physician Address: Address: [address] [facility] [address] [place], [place] [address]- Name: Courtney Prado MD Position: Physician - Internal Medicine Member Role: Primary Care Physician Address: Address: [address] [facility] [address] Name: Fritz Oreilly MD Position: Physician - Infectious Disease Member Role: Specialist Physician Address: Address: [address] [facility] [address] [place], [place] [id number] [place] Name: Jose Martin Lomas M.D. Position: Physician - Cardiology Member Role: Specialist Physician Address: Address: [facility] [address] [facility] [address] [place] [address] [place] Name: Macy Ansari RN Position: AMB ONC Nurse Navigator Member Role: Nurse Navigator Name: Jose Martin Lomas M.D. Position: Physician - Cardiology Med Service: Manager Technology Laser Set Up Operator Role: Attending Physician Address: Address: [facility] [address] Care Team Related Persons Name: JL BROWER Name: ALLAN VALDES Name: FREDA REYES
--- OUTSIDE RECORDS SUMMARY | 2024-04-20 01:04 | XMS_ITS | Continuity of Care Document ---
Author Organization [facility] [address] [place], [place] [id number] Care Team Providers Care Elevator Attendant Name Role Phone Courtney Prado Primary Care Physician [phone] Encounter [facility] Financial Number [id number] Date(s): 06/10/23 - 06/10/23 [facility] [address] [place], [place] [id number] Encounter Diagnosis Microhematuria(Discharge Diagnosis) - 06/10/23 Discharge Disposition: Home or Self Care Attending Physician: Jeromy Perez MD Allergies, Adverse Reactions, Alerts No Known Allergies Assessment and Plan Future Appointments Appointment Date:06/17/2023 03:00:00 PM Scheduled Provider: Location:[facility]/CT Appointment Type:CT ABDOMEN/PELVIS Appointment Date:07/06/2023 10:00:00 AM Scheduled Provider:Jeromy Perez MD Location:[facility] Appointment Type:USSL Cysto 20mins Appointment Date:08/07/2023 12:30:00 PM Scheduled Provider:Jose Martin Lomas M.D. Location:[facility] Appointment Type:[facility] EP Established Patient Cesilia Appointment Date:09/07/2023 10:00:00 AM Scheduled Provider:Kemi Daley MD Location:[facility] Appointment Type:[facility] ORANTES Established Patient Appointment Date:09/07/2023 11:15:00 AM Scheduled Provider:Courtney Prado MD Location:[facility] Appointment Type:[facility] EP Established Patient Immunizations Given and Recorded Vaccine Date Status Refusal Reason influenza virus vaccine, inactivated 02/16/23 Give n influenza virus vaccine, live, trivalent 05/09/21 Recorded SARS-CoV-2 mRNA (5y-11y) vaccine 05/09/21 Recorded SARS-CoV-2 (COVID-19) mRNA BNT-162b2 vax 1 07/28/20 Recorded SARS-CoV-2 (COVID-19) mRNA BNT-162b2 vax 2 07/03/20 Recorded 1Result Comment: Chavez Santiago 2Result Comment: Pamela Nc Medications allopurinol 100 mg oral tablet 100 mg, 1 tablet(s), Oral, bid, 180 tablet(s), 2, 2, Route to Pharmacy Electronically, [facility] #[id number], [id number], 183, cm, 02/16/23 13:04:00 CDT, Height, 110.5, kg, 02/16/23 13:04:00 CDT, Weight Start Date: 05/15/23 Stop Date: 02/09/24 Status: Ordered amLODIPine 10 mg oral tablet 10 mg, 1 tablet(s), Oral, daily, 90 tablet(s), Tablet(s), 3, 3, Route to Pharmacy Electronically, [facility] #[id number], [id number], 183, cm, 07/01/2022 1255, Height, 117, kg, [...] Tablet(s), 3, 3, Route to Pharmacy Electronically, [facility] #[id number], [id number], 183, cm, 07/01/2022 1255, Height, 117, kg, 07/01/2022 1255, Weight Start Date: 07/02/22 Stop Date: 06/27/23 Status: Ordered ezetimibe 10 mg oral tablet 1 tablet(s), Oral, daily, 90 tablet(s), 3, 3, Route to Pharmacy Electronically, [email or web address] #[id number], [id number], 183, cm, 09/01/2022 1142, Height, 119, kg, 09/01/2022 1142, Weight Start Date: 10/14/22 Stop Date: 10/09/23 Status: Ordered gabapentin 100 mg oral capsule 100 mg, 1 capsule(s), Oral, tid, 90 capsule(s), Capsule(s), 0, 0, Route to Pharmacy Electronically,[facility] #[id number], [id number], 183, cm, 02/16/23 13:04:00 CDT, Height, 110.5, kg, 02/16/23 13:04:00 CDT, Weight Start Date: 03/23/23 Stop Date: 04/22/23 Status: Ordered levothyroxine 50 mcg (0.05 mg) oral tablet 50 mcg, 1 tablet(s), Oral, daily before breakfast, 90 tablet(s), Tablet(s), 3, 3, Route to PharmacyElectronically, [email or web address] #[id number], [id number], 183, cm, 09/01/2022 1142, Height, 119, kg, [...] 180 tablet(s), 2, Route to Pharmacy Electronically, [facility] #[id number], [id number], 182, cm, 11/24/22 13:26:00 CDT, Height, 106, kg, 11/23/22 12:54:00 CDT, Weight Start Date: 12/24/22 Status: Ordered MiraLax oral powder for reconstitution 1 packet(s), Oral, daily, PRN, REC Powder, 0, constipation Start Date: 08/20/20 Status: Ordered pantoprazole 40 mg oral delayed release tablet 40 mg, 1 tablet(s), Oral, bid before meals, 180 tablet(s), Tab EC, 0, 0, Route to Pharmacy Electronically, [facility] #[id number], [id number], 182, cm, 11/24/2022 1326, Height, 106, kg, 11/23/2022 1254, Weight Start Date: 11/25/22 Stop Date: 02/23/23 Status: Ordered sucralfate 1 g/10 mL oral suspension 1 gm, 10 mL, Oral, qid, 1,200 mL, Susp, 0, 0, Route to Pharmacy Electronically, [facility] #[id number], [id number], 182, cm, 11/24/2022 1326, Height, 106, kg, 11/23/2022 1254, Weight Start Date: 11/25/22 Stop Date: 12/25/22 Status: Ordered Tylenol 500 mg, Oral, [id number], PRN, 0, pain, mild Start Date: 11/23/22 [...] Safety Implantable Status Assigning Authority Unknown Unknown [id number] Unknown 03/04/23 Unknown Unknown Active Unkn own Procedure Provider Procedure Date Device Type Site Mitral Valve Annuloplasty Unknown 07/11/20 Unknown Unknown Device Identifier Serial Number Lot or Batch Number Manufacturing Date Expiration Date Distinct Identification Code MRI Safety Implantable Status Assigning Authority [id number] Unknown Unknown 03/13/24 Unknown MR Conditi onal [...] Date:05/28/20 End Date: Status:Met Progression:Met Note * Leonor Celis MA/1: PERFORM Event Display: Urine Dipstick POC - Text Authored Date: [id number] Urine Dipstick POC Entered On: 06/10/2023 11:29 INSULATION EXTRUDER OPERATOR Performed On: 06/10/2023 11:29 INSULATION EXTRUDER OPERATOR by Leonor Celis MA/SHOBHA Urine Dipstick Urine Color Urine Dipstick : Yellow Urine Appearance Urine Dipstick : Clear Specific [place] Urine Dipstick : 1.015 pH Urine Dipstick : 5 Leukocytes Urine Dipstick : Negative Nitrite Urine Dipstick : Negative Protein Urine Dipstick : 4+ (>2000 mg/dl) Glucose Urine Dipstick : Negative Ketones Urine Dipstick : Negative Urobilinogen Urine Dipstick : Normal Bilirubin Urine Dipstick : Negative Blood Urine Dipstick : Trace Urine drug screen : No Leonor Celis MA/1 - 06/10/2023 11:29 INSULATION EXTRUDER OPERATOR * Zak Zavala [place] GUIDE: PERFORM Event Display: Consent/Registration Forms Authored Date: [id number] * Zak Zavala [place] GUIDE: PERFORM Event Display: Consent/Registration Forms Authored Date: [id number] * Event Display: ROI_Correspondence * Event Display: ROI_Correspondence Authored Date: [id number] * Event Display: ROI_Correspondence * Event Display: ROI_Correspondence Patient Care team information Care Team Personnel Name: Jada Reynaga MD Position: Physician - Cardiology Member Role: Specialist Physician Address: Address: [address] [facility] [address] [place] [address] [place] Name: Nancy Suresh Specialist Position: Population Health Coordinator Member Role: Population Health Coordinator Name: Khoi Hendrickson Member Role: Urologist Name: Kenia Gregory M.D. Position: Physician - Endocrine Member Role: Veneer Taping Machine Offbearer Address: Address: [address] [facility] [address] [place], [place] [id number] [place] Name: Vlad Varner MD Position: Physician - Electrophysiology Member Role: Specialist Physician Address: Address: [address] [place] [address] [place] Name: Gab Marquez M.D. Position: Physician - Infectious Disease Member Role: Infectious Disease Address: Address: [address] [facility] [address] Name: Sheron Lamb SPECIALIST II Position: Population Health Coordinator Member Role: Population Health Coordinator Name: Yonas Clements MD Member Role: Specialist Physician Address: Address: [address] [place] [address] [place] Name: Mark Sesay M.D. Position: Physician - Cardiothoracic Surgery Member Role: Specialist Physician Address: Address: [address] [facility] [address] [place] [address]- Name: Courtney Prado MD Position: Physician - Internal Medicine Member Role: Primary Care Physician Address: Address: [address] [facility] [address] [place] [address] [place] Name: Fritz Oreilly MD Position: Physician - Infectious Disease Member Role: Specialist Physician Address: Address: [address] [place] [address] [address] [place], [place] [id number] [place] Name: Jose Martin Lomas M.D. Position: Physician - Cardiology Member Role: Specialist Physician Address: Address: [facility] [address] [place] [address] [place] [address] [place] Name: Macy Ansari RN Position: AMB ONC Nurse Navigator Member Role: Nurse Navigator Care Team Related Persons Name: JL BROWER Name: ALLAN VALDES Name: FREDA REYES
--- OUTSIDE RECORDS SUMMARY | 2024-04-20 01:04 | XMS_ITS | Continuity of Care Document ---
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 Admitting Physician: Mark Sesay M.D. Referring Physician: Jose Martin Lomas M.D. Allergies, Adverse Reactions, Alerts No Known Allergies Assessment and Plan Future Appointments Appointment Date:10/25/2020 10:30:00 AM Scheduled Provider: Location:[facility] Anti Coag Clinic Appointment Type:Anti Coag Clinic, Follow-Up Appointment Date:10/31/2020 10:15:00 AM Scheduled Provider:Vlad Varner M.D. Location:[facility] Spec Appointment Type:SLES SAMPLE CASE PORTER New Patient Appointment Date:11/08/2020 10:00:00 AM Scheduled Provider:Emmanuel Broussard MD Location:[facility] Appointment Type:CON EP Established Patient Immunizations Given and Recorded Vaccine Date Status Refusal Reason SARS-CoV-2 (COVID-19) mRNA BNT-162b2 mix 1 07/28/20 Recorded SARS-CoV-2 (COVID-19) mRNA BNT-162b2 vax 2 07/03/20 Recorded 1Result Comment: Chavez Santiago 2Result Comment: Chavez Santiago Medications allopurinol 300 mg oral tablet 300 mg, 1 tablet(s), Oral, daily, 30 tablet(s), Tablet(s), 0 Start Date: 07/23/20 Status: Ordered amiodarone 200 mg oral tablet 200 mg, 1 tablet(s), Oral, daily, 90 tablet(s), Tablet(s), 3, 3, Route to Pharmacy Electronically, [facility] #[id number], [id number] Start Date: 09/07/20 Stop Date: 09/02/21 Status: Ordered amLODIPine 5 mg oral tablet 5 mg, 1 tablet(s), Oral, daily, 30 tablet(s), Tablet(s), 0, 0, Route to Pharmacy Electronically, [facility] #[id number], [id number] Start Date: 08/20/20 Status: Ordered aspirin 81 mg oral enteric coated tablet 81 mg, 1 tablet(s), Oral, daily, Tab EC, 0 Start Date: 07/05/20 Status: Ordered atorvastatin 80 mg oral tablet 80 mg, 1 tablet(s), Oral, daily, 90 tablet(s), Tablet(s), 0 Start Date: 07/09/20 Status: Ordered ezetimibe 10 mg oral tablet 10 mg, 1 tablet(s), Oral, daily, 90 tablet(s), Tablet(s), 0 Start Date: 05/21/20 Status: Ordered furosemide 20 mg oral tablet See Instructions, # 90 tablet(s), Refill #: 3 Total Refills: 3, TAKE 1 TABLET BY MOUTH DAILY, [facility] #[id number] Start Date: 08/30/20 Status: Ordered melatonin 3 mg oral tablet 3 mg, 1 tablet(s), Oral, qhs, 30 tablet(s), Tablet(s), 0 Start Date: 07/23/20 Status: Ordered Metoprolol Tartrate 25 mg oral tablet 25 mg, 1 tablet(s), Oral, bid, 180 tablet(s), Tablet(s), 3, 3, [id number], [id number], 182, cm, 09/14/2020 1114, Height, 109, kg, 09/14/2020 1114, Weight Start Date: 09/25/20 Stop Date: 09/20/21 Status: Ordered Metoprolol Tartrate 50 mg oral tablet 50 mg, 1 tablet(s), Oral, bid, 180 tablet(s), Tablet(s), 3, 3, Route to Pharmacy Electronically, [facility] #[id number], [id number] Start Date: 09/19/20 Stop Date: 09/14/21 Status: Ordered MiraLax oral powder for reconstitution 1 packet(s), Oral, daily, PRN, REC Powder, 0, constipation Start Date: 08/20/20 Status: Ordered Multivitamin oral tablet 1 tablet(s), Oral, daily, 30 tablet(s), Tablet(s), 0 Start Date: 05/23/20 Status: Ordered traZODone 50 mg oral tablet 50 mg, 1 tablet(s), Oral, qhs, PRN, 30 tablet(s), Tablet(s), 0, 0, insomnia, [id number], [id number] Start Date: 08/20/20 Status: Ordered warfarin 2 mg oral tablet 4 mg, 2 tablet(s), Oral, MTuWThFSa, 30 tablet(s), Tablet(s), 0 Start Date: 08/15/20 Status: Ordered warfarin 2 mg oral tablet 5 mg, 2.5 tablet(s), Oral, Beltran, 30 tablet(s), Tablet(s), 0 Start Date: 08/15/20 Status: Ordered Problem List Condition Effective Dates Status Health Status Inform ant Anemia(Confirmed) Active Chronic diastolic congestive heart failure(Confirmed) Active CKD (chronic kidney disease) , stage III(Confirmed) Active CAD (coronary artery disease)(Confirmed) Active Endocarditis(Confirmed) Active Gall stone(Confirmed) Active Gout(Confirmed) Active S/P prostatectomy(Confirmed) Active Large hiatal hernia(Confirmed) Active S/P CABG x 1(Confirmed) Active History of prostate cancer(Confirmed) Active S/P mitral valve repair(Confirmed) Active Hyperlipidemia(Confirmed) Active Trouble in sleeping(Confirmed) Active Medication monitoring encounter(Confirmed) Active Persistent atrial fibrillation(Confirmed) Active Procedures Procedure Date Related Diagnosis Body Site Status Biopsy of prostate Comple mary Cardiac catheterization C ompleted cardiac stents 1 Complete d Prostatectomy Completed 2018 Social History Social History Type Response Alcohol Never alcohol user Substance Abuse Never drug user Smoking Status Never smoker;Never; Cessation Counseling N/A entered on: 05/21/20 Sex Male Medical Equipment Implanted Date:07/11/20Target Site:Unknown Description Quantity MRI Company Model STL-SCREW SELF LOCKING 3.5MM X 18MM 16 [employer] Unknown JASE:No Information Assigning Authority: FDA STL-PLATE LOW PROFILE V 4 HOLE 1 [employer] Unknown JASE:No Information Assigning Authority: FDA STL-PLATE LOW PROFILE H 6 HOLE 1 [employer] Unknown JASE:No Information Assigning Authority: FDA STL-PLATE LOW PROFILE O 6 HOLE 1 [employer] Unknown JASE:No Information Assigning Authority: FDA STL-RING PHYSIO II MITRAL ANNULOPLASTY 32MM 1 MR Conditional Widemile Unknown JASE:{[id number] Assigning Author ity:FDA STL-CLIP ATRI FLEX DEVICE 35MM 1 [employer] Unknown JASE:No Information Assigning Authority: FDA Goals Prevent Readmission Through Ongoing Care Managem [...]
--- OUTSIDE RECORDS SUMMARY | 2024-04-20 01:04 | XMS_ITS | Continuity of Care Document ---
Author Organization [facility] [address] Address [address] [id number] Care Team Providers Care Scratch Polisher Name Role Phone Courtney Prado Primary Care Physician [phone] Encounter [facility] Financial Number [id number] Date(s): 02/25/24 - 02/25/24 [facility] [address] [phone] Encounter Diagnosis CKD (chronic kidney disease), stage III(Discharge Diagnosis) - 02/25/24 Anemia of chronic disease(Discharge Diagnosis) - 02/25/24 CAD (coronary artery disease)(Discharge Diagnosis) - 02/25/24 Hyperlipidemia(Discharge Diagnosis) - 02/25/24 Hypertension(Discharge Diagnosis) - 02/25/24 S/P mitral valve repair(Discharge Diagnosis) - 02/25/24 Discharge Disposition: Home or Self Care Attending Physician: Colton Brice Allergies, Adverse Reactions, Alerts No Known Allergies Assessment and Plan Future Appointments Appointment Date:03/11/2024 10:30:00 AM Scheduled Provider: Location:[facility] DOC Nuc Med Appointment Type:yyNM CARDIAC MPI MULT BRANDY INJ Appointment Date:03/11/2024 11:00:00 AM Scheduled Provider: Location:[facility] DOC Nuc Med Appointment Type:yyNM CARDIAC SCAN 30 Appointment Date:03/11/2024 11:30:00 AM Scheduled Provider: Location:[facility] DOC Nuc Med Appointment Type:yyNAntione LEXISCAN STRESS TEST Appointment Date:03/11/2024 12:30:00 PM Scheduled Provider: Location:[facility] DOC Nuc Med Appointment Type:yyNM CARDIAC SCAN 30 Appointment Date:03/24/2024 02:30:00 PM Scheduled Provider:Courtney Prado MD Location:[facility] Appointment Type:[facility] CPE Complete Physical Exam Appointment Date:06/01/2024 11:00:00 AM Scheduled Provider:Jeromy Perez MD Location:[facility] Appointment Type:USSL Established Patient 20mins Appointment Date:09/12/2024 10:30:00 AM Scheduled Provider:Kemi Daley MD Location:[facility] [address] Appointment Type:[facility] EP Established Patient Appointment Date:10/10/2024 10:30:00 AM Scheduled Provider: Location:[facility] Cardiology Appointment Type:Echocardiogram Complete Study Appointment Date:10/10/2024 11:30:00 AM Scheduled Provider:Jose Martin Lomas M.D. Location:[facility] Care Appointment Type:[facility] EP Established Patient Rinder Immunizations Given and Recorded Vaccine Date Status Refusal Reason influenza virus vaccine, inactivated 02/16/23 Give n influenza virus vaccine, live, trivalent 05/09/21 Recorded SARS-CoV-2 mRNA (5y-11y) vaccine 05/09/21 Recorded SARS-CoV-2 (COVID-19) mRNA BNT-162b2 vax 1 07/28/20 Recorded SARS-CoV-2 (COVID-19) mRNA BNT-162b2 vax 2 07/03/20 Recorded 1Result Comment: Chavez Santiago 2Result Comment: Chavez Santiago Medications allopurinol 100 mg oral tablet 100 mg, 1 tablet(s), Oral, bid, 180 tablet(s), 2, 2, Route to Pharmacy Electronically, [facility] #[id number], [id number], 183, cm, 02/16/23 13:04:00 CDT, Height, 110.5, kg, 02/16/23 13:04:00 CDT, Weight Start Date: 05/15/23 Stop Date: 02/09/24 Status: Ordered amLODIPine 10 mg oral tablet See Instructions, 90 tablet(s), 1, TAKE 1 TABLET BY MOUTH EVERY DAY, Route to Pharmacy Electronically, [facility] #[id number], [id number], Instructions Replace RequiredDetails, 183, cm, 09/07/23 11:29:00 CDT, Height, 109.3, kg, 09/07/23 11:29:00 CDT, Weight Start Date: 09/11/23 Status: Ordered Arexvy preservative-free intramuscular injection 60 mcg, 0.5 mL, IntraMuscular, Once, 0.5 mL, 0, 0, Pharmacy to administer, Route to Pharmacy Electronically, [facility] #[id number], [id number], 183, cm, 09/07/23 11:29:00 CDT, Height, 109.3, kg, 09/07/23 11:29:00 CDT, Weight Start Date: 09/07/23 Status: Ordered aspirin 81 mg oral enteric coated tablet 81 mg, 1 tablet(s), Oral, daily, Tab EC, 0 Start Date: 07/05/20 Status: Ordered atorvastatin 80 mg oral tablet 1 tablet(s), Oral, daily, 90 tablet(s), 3, Route to Pharmacy Electronically, [facility] #[id number], [id number], 183, cm, 02/16/23 13:04:00 CDT, Height, 110.5, kg, 02/16/23 13:04:00 CDT, Weight Start Date: 07/13/23 Status: Ordered cloNIDine 0.1 mg oral tablet 1 tablet(s), Oral, bid, 180 tablet(s), 2, 2, Route to Pharmacy Electronically, [facility]#[id number], [id number], 183, cm, 02/16/23 13:04:00 CDT, Height, 110.5, kg, 02/16/23 13:04:00 CDT, Weight Start Date: 08/06/23 Stop Date: 05/02/24 Status: Ordered Entresto 24 mg-26 mg oral tablet 0.5 tablet(s), Oral, bid, 30 tablet(s), Tablet(s), 11, 11, Route to Pharmacy Electronically, [facility] #[id number], [id number], 182, cm, 02/25/24 13:51:00 CDT, Height, 105, kg, 02/25/24 13:51:00 CDT, Weight Start Date: 02/25/24 Status: Ordered ezetimibe 10 mg oral tablet 1 tablet(s), Oral, daily, 90 tablet(s), 3, Route to Pharmacy Electronically, [facility] #[id number], [id number], 182, cm, 10/28/23 9:42:00 CDT, Height, 105.2, kg, 10/28/23 9:42:00 CDT, Weight Start Date: 01/07/24 Status: Ordered Gemtesa 75 mg oral tablet 75 mg, 1 tablet(s), Oral, daily, 30 tablet(s), 3, 3, Route to Pharmacy Electronically, [facility] #[id number], [id number], 182, cm, 10/28/23 9:42:00 CDT, Height, 105.2,kg, 10/28/23 9:42:00 CDT, Weight Start Date: 01/14/24 Stop Date: 05/13/24 Status: Ordered levothyroxine 50 mcg (0.05 mg) oral tablet 1 tablet(s), Oral, daily before breakfast, 90 tablet(s), 0, Route to Pharmacy Electronically, [facility] #[id number], [id number], 182, cm, 10/28/23 9:42:00 CDT, Height, 105.2, kg, 10/28/23 9:42:00 CDT, Weight Start Date: 12/15/23 Status: Ordered Metoprolol Tartrate 50 mg oral tablet 1 tablet(s), Oral, bid, 180 tablet(s), 3, Route to Pharmacy Electronically, [facility] #[id number], [id number], 182, cm, 10/28/23 9:42:00 CDT, Height, 105.2, kg, 10/28/23 9:42:00 CDT, Weight Start Date: 11/09/23 Status: Ordered minoxidil 2.5 mg oral tablet 1 tablet(s), Oral, bid, 180 tablet(s), 0, Route to Pharmacy Electronically, [facility] #[id number], [id number], 182, cm, 02/25/24 13:51:00 CDT, Height, 105, kg, 02/25/24 13:51:00 CDT, Weight Start Date: 02/25/24 Status: Ordered pantoprazole 40 mg oral delayed release tablet 40 mg, 1 tablet(s), Oral, bid before meals, 180 tablet(s), Tab EC, 0, 0, Route to Pharmacy Electronically, [facility] #[id number], [id number], 182, cm, 11/24/2022 1326, Height, 106, kg, 11/23/2022 1254, Weight Start Date: 11/25/22 Stop Date: 02/23/23 Status: Ordered sucralfate 1 g/10 mL oral suspension 1 gm, 10 mL, Oral, qid, 1,200 mL, Susp, 0, 0, Route to Pharmacy Electronically, [facility] #[id number], [id number], 182, cm, 11/24/2022 1326, Height, 106, kg, 11/23/2022 1254, Weight Start Date: 11/25/22 Stop Date: 12/25/22 Status: Ordered Problem List Condition Confirmation Course [...] Confirmed Active Trouble in sleeping Confirmed Active Needs flu shot Confirmed Active [...] 1 Temperature Temporal Artery [35.8-38 Deg C] 36.4 DegC (02/25/24 11:45 AM) Peripheral Pulse Rate [60-100 bpm] 66 bp m (02/25/24 11:45 AM) Blood Pressure [89-139/60-90 mm Hg] 150/ 76mm Hg *H* (02/25/24 11:45 AM) Height 182 cm (02/25/24 11:45 AM) Weight 106.4 kg (02/25/24 11:45 AM) Social History Social History Type Response Alcohol [...] Safety Implantable Status Assigning Authority Unknown Unknown [id number] Unknown 03/04/23 Unknown Unknown Active Unkn own Procedure Provider Procedure Date Device Type Site Mitral Valve Annuloplasty Unknown 07/11/20 Unknown Unknown Device Identifier Serial Number Lot or Batch Number Manufacturing Date Expiration Date Distinct Identification Code MRI Safety Implantable Status Assigning Authority [id number] Unknown Unknown 03/13/24 Unknown MR Candace stephenson Active GS1 Goals Prevent Readmission Through Ongoing [...] Date: Status:Met Progression:Met Note * Vini Núñez Picab[employer] Solutions Architect: PERFORM Event Display: ROI_Correspondence Authored Date: [id number] * Event Display: ROI_Correspondence * Event Display: ROI_Correspondence Authored Date: [id number] Internal medicine Outpatient Note * Colton Brice ANP: PERFORM Event Display: Internal Medicine Office/Clinic Note Authored Date: [id number] Patient Information Name:SHANON BROWN Address: [address] [place] [phone] Sex:Male Date of :1945 Emergency Contact:FREDA REYES Location:[facility] [address] Registration Date and Time:02/25/2024 11:30 CDT Primary Care Physician: Courtney Prado MD, Attending Physician: Colton Brice ANP, Chief Complaint BP follow up History of Present Illness Patient comes??in for??BP??follow up. BP has still been in the high side. 3pm?? each day??170-180-s/80-90. No headaches. So?me dizziness wiht the high bp.?? Review of Systems General/Constitutional:?? Headaches??NoFatigue/Decreased Energy??NoWeight ChangeNo??Fever??NoRecent Illness??NoHot/Cold Tolerance??NoNight Sweats??No Miscellaneous:?? Do you exercise??NoHave you fallen in the last 6 months??NoOther Problems??___.?? HEENT/Neck:?? Hoarseness/Voice Damage??NoTeeth/Gum Issues??NoSeasonal Alllergies??NoDouble Vision??NoEar pain\Drainage??NoHearing Loss??NoNosebleeds??NoMouth Ulcers??NoSore Throat??NoSwollen glands in neck??No Respiratory:?? Chronic or Frequent Cough??NoShortness of Breath??NoSmoker??NoWheezing??No Cardiovascular:?? Chest Pain??NoPalpitationsNo??Swelling in legs/feet/hand??NoVaricose Veins??No Gastrointestinal:?? Abdominal Pain??NoTrouble SwallowingNo. Blood in Stool??No?? Change in Bowel Habits??No?? Constipation??NoDiarrhea??NoLoss of Appetite??NoNausea??NoVomiting??No Genitourinary:?? Discharge from Genitals??NoBreast Pain??NoBreast Mass??NoBreast Discharge??NoIncontinence in the last 6 months??NoFrequent Urination??No?? Blood in Urine??No?? Difficulty urinating??NoSexual Dysfunction??No?? Musculoskeletal:?? Back Pain??NoJoint Aches??No?? Difficulty Walking??NoCalf Pain??NoJoint Swelling??No Neurologic:?? Off Balance/Weakness??NoFrequent/Recurring Headache??NoDizziness/Light Headed??NoTingling/Numbness??No?? Psychiatric:?? Sad/Depressed??NoDifficulty with Tasks??NoMemory Loss??NoNervousness/Anxiety??NoSleep disturbances??NoSuicidal Thoughts??No?? Dermatologic:?? Rash/Itching??NoBruising??NoSkin color or mole changes??No Men Only:?? Frequent Night Urination??No??Slow Stream??NoTesticular pain or swelling??No ? Vitals and Measurements Vital Signs Height: 182 cm Height Inches Conversion: 71.7 Weight: 106.4 kg Weight in Pounds (kg conversion): 234.1 Body Surface Area: 2.3193 m2 Body Mass Index: 32.12 kg/m2 Temperature Temporal Artery: 36.4 DegC Systolic Blood Pressure:??150 mm Hg??High Diastolic Blood Pressure: 76 mm Hg Peripheral Pulse Rate: 66 bpm Oxygen Saturation: 97 % Physical Exam GENERAL APPEARANCE:??well developed and well nourished,?? 78 year old male, accompanied daughter,inno acute distress.?? EYES:??+ red reflex bilaterally,??pupils, equal, round, reactive to light and accomodation (PERRLA),??sclera clear.?? HEENT:??Head - normocephalic/atraumatic,??EARS:??tympanic membranes normal, external auditory canals clear,??NOSE:??nose clear.?? ORAL CAVITY:??unremarkable.?? NECK/THYROID:??no jugular venous distention (JVD),??no lymphadenopathy,??no thyromegaly.?? CARDIOVASCULAR:??regular rate and rhythm, normal S1S2,??no murmurs, click or rubs.?? CHEST:??symmetrical.?? RESPIRATORY:??normal breath sounds,??no wheezes, rhonchi, rales.?? GASTROINTESTINAL:??soft, non-tender/non-distended, bowel sounds present.?? NEUROLOGIC EXAM:??alert and oriented x 3,??no gross motor/sensory deficit.?? SKIN:??unremarkable.?? EXTREMITIES:??1+ bilateral pitting edema, wearing knee compression socks PERIPHERAL PULSES:??normal (2+) bilaterally.?? LYMPH NODES:??No palpable adenopathy.? Assessment/Plan 1.??CKD (chronic kidney disease), stage III Will follow up on labs and imaging Ordered: Echocardiogram Complete Study, 02/25/24 13:00:00 CDT, htn/mitral valve repair, Anemia of chronic disease Ascending aorta dilation CAD (coronary artery disease) CKD (chronic kidney disease), stage III Edema of right lower extremity Hyperlipidemia S/P mitral valve repair,... ?? 2.??Anemia of chronic disease WIll follow up on labs Ordered: Echocardiogram Complete Study, 02/25/24 13:00:00 CDT, htn/mitral valve repair, Anemia of chronic disease Ascending aorta dilation CAD (coronary artery disease) CKD (chronic kidney disease), stage III Edema of right lower extremity Hyperlipidemia S/P mitral valve repair,... ?? 3.??CAD (coronary artery disease) Continue current medication management Ordered: Echocardiogram Complete Study, 02/25/24 13:00:00 CDT, htn/mitral valve repair, Anemia of chronic disease Ascending aorta dilation CAD (coronary artery disease) CKD (chronic kidney disease), stage III Edema of right lower extremity Hyperlipidemia S/P mitral valve repair,... ?? 4.??Hyperlipidemia Blood work shows slightly elevated cholesterol and LDL. Medication not required in this range. Recommendation is frequent exercise with a goal of 150mins a week and a diet low in saturated fat. Ordered: Echocardiogram Complete Study, 02/25/24 13:00:00 CDT, htn/mitral valve repair, Anemia of chronic disease Ascending aorta dilation CAD (coronary artery disease) CKD (chronic kidney disease), stage III Edema of right lower extremity Hyperlipidemia S/P mitral valve repair,... ?? 5.??Hypertension Please check blood pressure 2-3 times per week and bring readings to next visit. Bring in home blood pressure cuff to next visit. Call if blood pressure readings are above 150/90 for multiple readings. Added low dose minoxidil ?? 6.??S/P mitral valve repair Will follow up on echo Ordered: Echocardiogram Complete Study, 02/25/24 13:00:00 CDT, htn/mitral valve repair, Anemia of chronic disease Ascending aorta dilation CAD (coronary artery disease) CKD (chronic kidney disease), stage III Edema of right lower extremity Hyperlipidemia S/P mitral valve repair,... ?? Orders: minoxidil(minoxidil 2.5 mg oral tablet), 2.5 mg= 1 tablet(s), Oral, bid minoxidil(minoxidil 2.5 mg oral tablet), 1 tablet(s), Oral, bid CBC with Differential, 02/25/24 11:30:00 CDT, Blood, ROUTINE, Routine, 02/25/24 11:30:00 CDT, NurseCollect, Main Lab, Print Label, Anemia of chronic disease Ascending aorta dilation CAD (coronary artery disease) CKD (chronic kidney disease), stage III Edema of righ... Comprehensive Metabolic Profile, 02/25/24 11:30:00 CDT, Blood, ROUTINE, Routine, 02/25/24 11:30:00 CDT, Nurse Collect, Main Lab, Print Label, Anemia of chronic disease Ascending aorta dilation CAD (coronary artery disease) CKD (chronic kidney disease), stage III Edema of righ... Differential, Automated, 02/25/24 11:38:00 CDT, Blood, ROUTINE, Routine, Collected, 02/25/24 11:38:00 CDT, Nurse Collect, 02/25/24 11:38:00 CDT, Main Lab, Anemia of chronic disease Ascending aorta dilation CAD (coronary artery disease) CKD (chronic kidney disease), stag... NT-proBNP, 02/25/24 11:30:00 CDT, Blood, ROUTINE, Routine, 02/25/24 11:30:00 CDT, Nurse Collect, Main Lab, Print Label, Anemia of chronic disease Ascending aorta dilation CAD (coronary artery disease) CKD (chronic kidney disease), stage III Edema of righ... Urinalysis & Microscopic, 02/25/24 11:30:00 CDT, Urine - Voided, ROUTINE, Routine, 02/25/24 11:30:00 CDT, Nurse Collect, Urine, Main Lab, Print Label, Anemia of chronic disease Ascending aorta dilation CAD (coronary artery disease) CKD (chronic kidney disease), stage III... Future Order Details PSA, Total & Free, 02/25/24, Blood, ROUTINE, Routine, Order for Future Visit, Nurse Collect, Print Label, History of prostate cancer, Hold Until Collected NM MPI SPECT MULT EFWALL MOT BRANDY per protocol, systolic heart failure, 03/11/24, ROUTINE, SystolicCHF, Not Required, Future Order, Electronic, RADIOLOGY Follow Up Future Appointments ?03/24/2024?[facility] CPE Complete Physical Exam?Courtney Prado ? Problem List/Past Medical History Ongoing Anemia of chronic disease Ascending aorta dilation CAD (coronary artery disease) CKD (chronic kidney disease), stage III Edema of right lower extremity Gall stone GERD with esophagitis Gout History of endocarditis History of prostate cancer History of radiation therapy Hypercalcemia Hyperlipidemia Hypertension Hypothyroidism Large hiatal hernia Medication monitoring encounter Needs flu shot PAF (paroxysmal atrial fibrillation) Post herpetic neuralgia Proteinuria S/P CABG x 1 S/P mitral valve repair S/P prostatectomy Trouble in sleeping Historical Prostate cancer Procedure/Surgical History ???Repair of diaphragmatic hiatal hernia (11/23/2022)???UPPER GI ENDOSCOPY PERFORMED (2022)???Biopsy of prostate???Cardiac catheterization???cardiac stents???Prostatectomy Medications New minoxidil (minoxidil 2.5 mg oral tablet)1 tablet(s) By mouth 2 times a day. Refills: 0. Unchanged allopurinol (allopurinol 100 mg oral tablet)1 tablet(s) By mouth 2 times a day for 90 day(s). Refills: 2. amLODIPine (amLODIPine 10 mg oral tablet)TAKE 1 TABLET BY MOUTH EVERY DAY. Refills: 1. aspirin (aspirin 81 mg oral enteric coated tablet)1 tablet(s) By mouth daily. atorvastatin (atorvastatin 80 mg oral tablet)1 tablet(s) By mouth daily. Refills: 3. cloNIDine (cloNIDine 0.1 mg oral tablet)1 tablet(s) By mouth 2 times a day for 90 day(s). Refills: 2. ezetimibe (ezetimibe 10 mg oral tablet)1 tablet(s) By mouth daily. Refills: 3. levothyroxine (levothyroxine 50 mcg (0.05 mg) oral tablet)1 tablet(s) By mouth daily before breakfast. Refills: 0. metoprolol (Metoprolol Tartrate 50 mg oral tablet)1 tablet(s) By mouth 2 times a day. Refills: 3. pantoprazole (pantoprazole 40 mg oral delayed release tablet)1 tablet(s) By mouth 2 times a day before meals for 90 day(s). Refills: 0. RSV vaccine preF3, recombinant (Arexvy preservative-free intramuscular injection)0.5 Milliliter IntraMuscular once. Pharmacy to administer. Refills: 0. sacubitril-valsartan (Entresto 24 mg-26 mg oral tablet)0.5 tablet(s) By mouth 2 times a day. Refills: 11. sucralfate (sucralfate 1 g/10 mL oral suspension)10 Milliliter By mouth 4 times a day for 30 day(s). Refills: 0. vibegron (Gemtesa 75 mg oral tablet)1 tablet(s) By mouth daily for 30 day(s). Refills: 3. Discontinued lisinopril (lisinopril 40 mg oral tablet)1 tablet(s) By mouth daily. Refills: 0. mirabegron (Myrbetriq 50 mg oral tablet, extended release)1 tablet(s) By mouth daily. Refills: 3. solifenacin (solifenacin 5 mg oral tablet)1 tablet(s) By mouth daily for 90 day(s). Refills: 2. Immunizations Vaccine Date Statusinfluenza virus vaccine, inactivated 02/16/2023 Given influenza virus vaccine, live, trivalent 05/09/2021 Recorded SARS-CoV-2 [...] Event Result?? Date/Time?? Oxygen Saturation 97 % 02/25/24 11:45:00 ? Voice to Text Technology Disclaimer This note may contain text inserted via Dragon or other voice to text assistive technology and formal service waiter, variances may occur. Outpatient Summary note * Colton Brice ANP: PERFORM Event Display: Ambulatory Patient Summary Authored Date: [id number] SHANON BROWN :1945 Visit Date:02/25/[address] [facility] Visit Instructions Your Care Team Attending Physician - Colton Brice Primary Care Physician - Courtney Prado MD Discharge Vitals Vital Signs Height: 182 cm Height Inches Conversion: 71.7 Weight: 106.4 kg Weight in Pounds (kg conversion): 234.1 Body Surface Area: 2.3193 m2 Body Mass Index: 32.12 kg/m2 Temperature Temporal Artery: 36.4 DegC Systolic Blood Pressure:??150 mm Hg??High Diastolic Blood Pressure: 76 mm Hg Peripheral Pulse Rate: 66 bpm Oxygen Saturation: 97 % What to do next Scheduled Follow-Up Appointments 2023 1:00 PM CDT ?? With: Where: [facility] 2023 2:00 PM CDT ?? With: Shereen Owens OPERATIONS INTELLIGENCE Where: [facility] [address] [facility] [address] [place], [place] [phone] 2023 2:30 PM ORDNANCE KEEPER ?? With: Courtney Prado MD Where: [facility] [address] [facility] [address] [place], [place] [phone] Thursday 11:00 AM ORDNANCE KEEPER ?? With: Jeromy Perez MD Where: [facility] Thursday 10:30 AM CDT ?? With: Kemi Daley MD Where: [facility] [address] Thursday 10:30 AM CDT ?? With: Where: [facility] Thursday 11:30 AM CDT ?? With: Jose Martin Lomas M.D. Where: [facility] [address] [facility] [address] [place], [place] [phone] Referral Information Referral Information ? No Results Found ? Medications What How Much When Instructions New minoxidil (minoxidil 2.5 mg oral tablet) 1 tablet(s) By mouth 2 times a day Pickup at [id number] Unchanged allopurinol (allopurinol 100 mg oral tablet) 1 tablet(s) By mouth 2 times a day Duration: 90 day(s) Unchanged amLODIPine (amLODIPine 10 mg oral tablet) See instructions TAKE 1 TABLET BY MOUTH EVERY DAY ?? Unchanged aspirin (aspirin 81 mg oral enteric coated tablet) 1 tablet(s) By mouth Daily Unchanged atorvastatin (atorvastatin 80 mg oral tablet) 1 tablet(s) By mouth Daily Unchanged cloNIDine (cloNIDine 0.1 mg oral tablet) 1 tablet(s) By mouth 2 times a day Duration: 90 day(s) Unchanged ezetimibe (ezetimibe 10 mg oral tablet) 1 tablet(s) By mouth Daily Unchanged levothyroxine (levothyroxine 50 mcg (0.05 mg) oral tablet) 1 tablet(s) By mouth Daily before breakfast Unchanged lisinopril (lisinopril 40 mg oral tablet) 1 tablet(s) By mouth Daily Unchanged metoprolol (Metoprolol Tartrate 50 mg oral tablet) 1 tablet(s) By mouth 2 times a day Unchanged mirabegron (Myrbetriq 50 mg oral tablet, extended release) 1 tablet(s) By mouth Daily Unchanged pantoprazole (pantoprazole 40 mg oral delayed release tablet) 1 tablet(s) By mouth 2 times a day before meals Duration: 90 day(s) Unchanged RSV vaccine preF3, recombinant (Arexvy preservative-free intramuscular injection) 0.5 Milliliter IntraMuscular Once Pharmacy to administer ?? Unchanged solifenacin (solifenacin 5 mg oral tablet) 1 tablet(s) By mouth Daily Duration: 90 day(s) Unchanged sucralfate (sucralfate 1 g/ 10 mL oral suspension) 10 Milliliter By mouth 4 times a day Duration: 30 day(s) Unchanged vibegron (Gemtesa 75 mg oral tablet) 1 tablet(s) By mouth Daily Duration: 30 day(s) Pharmacy Information [id number]: [address], [place] [phone] Medications and Immunizations Administered Medication Administrations ? No Results Found ? Voice to Text Technology Disclaimer This note may contain text inserted via Dragon or other voice to text assistive technology and formal service waiter, variances may occur. Patient Care team information Care Team Personnel Name: Jada Reynaga MD Position: Physician - Cardiology Member Role: Specialist Physician Address: Address: [address] [facility] [address] [place] [address] Name: Nancy Suresh Specialist Position: Population Health Coordinator Member Role: Population Health Coordinator Name: Shereen Owens [employer]PERATIONS INTELLIGENCE Position: AMB OPERATIONS INTELLIGENCE/PA Member Role: Nurse Practitioner Address: Address: [address] [facility] [address] [place] [address] [place] Name: Khoi Hendrickson Member Role: Urologist Name: Kenia Gregory M.D. Position: Physician - Endocrine Member Role: Instructor Dramatic Arts Address: Address: [address] [facility] [address] [place], [place] [phone] [place] Name: Vlad Varner MD Position: Physician - Electrophysiology Member Role: Specialist Physician Address: Address: [address] [place] [address] [place] Name: Jeromy Perez MD Position: Physician - Urology Member Role: Urologist Address: Address: [address] [place] [address] [place] Name: Gab Marquez M.D. Position: Physician - Infectious Disease Member Role: Infectious Disease Address: Address: [address] [facility] [address] [facility] [place] [address] [place] Name: Sheron Lamb SPECIALIST II Position: Population Health Coordinator Member Role: Population Health Coordinator Name: Yonas Clements MD Member Role: Specialist Physician Name: Mark Sesay M.D. Position: Physician - Cardiothoracic Surgery Member Role: Specialist Physician Address: Address: [address] [facility] [place], [place] [address]- Name: Courtney Prado MD Position: Physician - Internal Medicine Member Role: Primary Care Physician Address: Address: [address] [facility] [address] [place] [address] [place] Name: Jessica Crowe OPERATIONS INTELLIGENCE Position: P4 Nurse Practitioner Member Role: Nurse Practitioner Address: Address: [address] [facility] [address], [place] [address] [place] Name: Fritz Oreilly MD Position: Physician - Infectious Disease Member Role: Specialist Physician Address: Address: [address] [facility] [address] [place], [place] [id number] [place] Name: Jose Martin Lomas M.D. Position: Physician - Cardiology Member Role: Specialist Physician Address: Address: [facility] [address] Name: Macy Ansari RN Position: [facility] ONC Nurse Navigator Member Role: Nurse Navigator Name: Colton Brice ANP Position: [facility] OPERATIONS INTELLIGENCE/PA Med Service: Registration Rep Scratch Polisher Role: Attending Physician Address: Address: [address] [place] [address] [place] Care Team Related Persons Name: JL BROWER Name: ALLAN VALDES Name: FREDA REYES
--- OUTSIDE RECORDS SUMMARY | 2024-04-20 01:04 | XMS_ITS | Continuity of Care Document ---
Author Organization [facility] Address [address] [place] [id number] Care Team Providers Care Applications Processor Name Role Phone Emmanuel Broussard Primary Care Physician Kemi Daley Unavailable Vlad Varner Unavailable Jose Martin Lomas Unavailable Mark Sesay Unavailable Fritz Oreilly Unavailable Jada Reynaga Unavailable Yonas Clements Unavailable Encounter [facility] Financial Number [id number] Date(s): 12/02/21 - 12/02/[address] [id number] Discharge Disposition: Home or Self Care Attending Physician: Jose Martin Lomas M.D. Admitting Physician: Jose Martin Lomas M.D. Referring Physician: Jose Martin Lomas M.D. Allergies, Adverse Reactions, Alerts No Known Allergies Assessment and Plan Future Appointments Appointment Date:12/05/2021 10:30:00 AM Scheduled Provider:Emmanuel Broussard MD Location:[facility] Appointment Type:CON EP Established Patient Appointment Date:01/14/2022 10:15:00 AM Scheduled Provider:Kemi Daley MD Location:[facility] Appointment Type:[facility]AF EP Established Patient Appointment Date:04/22/2022 10:15:00 AM Scheduled Provider:Vlad Varner MD Location:[facility] Appointment Type:SLES EP Established Patient Appointment Date:09/01/2022 11:45:00 AM Scheduled Provider:Jose Martin Lomas M.D. Location:[facility] Appointment Type:CCC EP Established Patient Cesilia Immunizations Given and Recorded Vaccine Date Status Refusal Reason influenza virus vaccine, live, trivalent 05/09/21 Recorded SARS-CoV-2 mRNA (5y-11y) vaccine 05/09/21 Recorded SARS-CoV-2 (COVID-19) mRNA BNT-162b2 vax 1 07/28/20 Recorded SARS-CoV-2 (COVID-19) mRNA BNT-162b2 vax 2 07/03/20 Recorded 1Result Comment: [place], [place] 2Result Comment: [place] Medications allopurinol 100 mg oral tablet 200 mg, 2 tablet(s), Oral, daily, 180 tablet(s), Tablet(s), 3, 3, Route to Pharmacy Electronically,[facility] #[id number], [id number], 182.88, cm, 05/23/2021 0950, Height, 119, kg, 05/23/2021 0950, Weight Start Date: 05/23/21 Stop Date: 05/18/22 Status: Ordered amiodarone 200 mg oral tablet 100 mg, 0.5 tablet(s), Oral, daily, 45 tablet(s), 3, 3, TAKE ONE-HALF TABLET BY MOUTH DAILY, Route to Pharmacy Electronically, [facility] #[id number], [id number], 182, cm, 07/05/2021 0928, Height, 120.2, kg, 07/05/2021 0928,... Start Date: 08/19/21 Stop Date: 08/14/22 Status: Ordered amLODIPine 10 mg oral tablet 10 mg, 1 tablet(s), Oral, daily, 90 tablet(s), Tablet(s), 3, 3, Route to Pharmacy Electronically, [facility] #[id number], [id number], 182.88, cm, 05/23/2021 0950, Height, 119, kg, 05/23/2021 0950, Weight Start Date: 05/23/21 Status: Ordered aspirin 81 mg oral enteric coated tablet 81 mg, 1 tablet(s), Oral, daily, Tab EC, 0 Start Date: 07/05/20 Status: Ordered atorvastatin 80 mg oral tablet 1 tablet(s), Oral, daily, 90 tablet(s), 0, Route to Pharmacy Electronically, [facility] #[id number], [id number], 182, cm, 07/05/2021 0928, Height, 120.2, kg, 07/05/2021 0928, Weight Start Date: 10/25/21 Status: Ordered ezetimibe 10 mg oral tablet 1 tablet(s), Oral, daily, 30 tablet(s), 2, Route to Pharmacy Electronically, [facility] #[id number], [id number], 182, cm, 07/05/2021 0928, Height, 120.2, kg, 07/05/2021 0928, Weight Start Date: 10/30/21 Status: Ordered ezetimibe 10 mg oral tablet 1 tablet(s), Oral, daily, 30 tablet(s), 2, Route to Pharmacy Electronically, [facility] #[id number], [id number], 182, cm, 07/05/2021 0928, Height, 120.2, kg, 07/05/2021927, Weight Start Date: 10/30/21 Status: Ordered furosemide 20 mg oral tablet See Instructions, 90 tablet(s), 3, 3, TAKE 1 TABLET BY MOUTH DAILY, Route to Pharmacy Electronically, [facility] #[id number], [id number], Instructions Replace Required Details, 182, cm, 07/05/2021 0928, Height, 120.2, kg,... Start Date: 08/02/21 Status: Ordered levothyroxine 25 mcg (0.025 mg) oral tablet 25 mcg, 1 tablet(s), Oral, daily before breakfast, 90 tablet(s), Tablet(s), 2, 2, Route to PharmacyElectronically, [facility][id number], [id number], 182, cm, 07/05/2021 0928, Height, 120.2, kg, 07/05/2021 0928, Weight Start Date: 07/05/21 Status: Ordered metoprolol tartrate 50 mg oral tablet 50 mg, 1 tablet(s), Oral, bid, 180 tablet(s), Tablet(s), 0 Start Date: 11/08/20 Status: Ordered MiraLax oral powder for reconstitution 1 packet(s), Oral, daily, PRN, REC Powder, 0, constipation Start Date: 08/20/20 Status: Ordered Multivitamin oral tablet 1 tablet(s), Oral, daily, 30 tablet(s), Tablet(s), 0 Start Date: 05/23/20 Status: Ordered Problem List Condition Effective Dates Status Health Status Inform ant CKD (chronic kidney disease) , stage III(Confirmed) Active CAD (coronary artery disease)(Confirmed) Active Gall stone(Confirmed) Active Gout(Confirmed) Active S/P prostatectomy(Confirmed) Active Large hiatal hernia(Confirmed) Active S/P CABG x 1(Confirmed) Active History of endocarditis(Confirmed) Active History of prostate cancer(Confirmed) Active S/P mitral valve repair(Confirmed) Active Hyperlipidemia(Confirmed) Active Hypertension(Confirmed) Active Hypothyroidism(Confirmed) Active Trouble in sleeping(Confirmed) Active Medication monitoring encounter(Confirmed) Active Persistent atrial fibrillation(Confirmed) Active Proteinuria(Confirmed) Active Elevated TSH(Confirmed) Active Procedures Procedure Date Related Diagnosis Body Site Status Biopsy of prostate Comple mary Cardiac catheterization C ompleted cardiac stents 1 Complete d Prostatectomy Completed 2018 Social History Social History Type Response Alcohol Never alcohol user Substance Abuse Never drug user Smoking Status Never smoker;Never; Tobacco Cessation Counseling Requested N/A entered on: 05/23/21 Sex Male Implantable Device List Procedure Provider [...] Safety Implantable Status Assigning Authority Unknown Unknown [id number] Unknown 03/04/23 Unknown Unknown Active Unkn own Procedure Provider Procedure Date Device Type Site Mitral Valve Annuloplasty Unknown 07/11/20 Unknown Unknown Device Identifier Serial Number Lot or Batch Number Manufacturing Date Expiration Date Distinct Identification Code MRI Safety Implantable Status Assigning Authority [id number] Unknown Unknown 03/13/24 Unknown MR Conditi onal [...] ent Start Date:05/28/20 End Date: Status:Met Progression:Met Care Team Personnel Name: Emmanuel Broussard MD Address: Address: [address] [place] [address] [address] [place] [address] [place] Name: Kemi Daley MD Address: Address: [address] [place] [address] [address] [place], [place] [id number] [place] Name: Vlad Varner MD Address: Address: [address] [place] [address] [address] [place] [address] [place] Name: Jose Martin Lomas M.D. Address: Address: [facility] [address] [place] [address] [address] [place] [address] [place] Name: Mark Sesay M.D. Address: Address: [address] [place] [address] [address] [place], [place] [address]- Name: Fritz Oreilly MD Address: Address: [address] [place] [address] Rd [address] [place], [place] [id number] [place] Name: Jada Reynaga MD Address: Address: [address] [place] [address] Rd [address] [place] [address] [place] Name: Yonas Clements MD Address: Address: [address] [place] [address]
--- OUTSIDE RECORDS SUMMARY | 2024-04-20 01:04 | XMS_ITS | Continuity of Care Document ---
Author Organization [facility] Address [address] [place] [id number] Care Team Providers Care Backup Engineer Name Role Phone Emmanuel Broussard Primary Care Physician [phone] Kemi Daley Unavailable Vlad Varner Unavailable Jose Martin Lomas Unavailable Mark Sesay Unavailable [phone] Fritz Oreilly Unavailable Jada Reynaga Unavailable Yonas Clements Unavailable Encounter [facility] Financial Number [id number] Date(s): 08/01/21 - 08/01/[address] [id number] Discharge Disposition: Home or Self Care Attending Physician: Levi Cruz M.D. Admitting Physician: Levi Cruz M.D. Referring Physician: Levi Cruz M.D. Allergies, Adverse Reactions, Alerts No Known Allergies Assessment and Plan Future Appointments Appointment Date:10/10/2021 10:45:00 AM Scheduled Provider:Kemi Daley MD Location:[facility] Appointment Type:EA EP Established Patient Appointment Date:12/02/2021 10:30:00 AM Scheduled Provider: Location:[facility] Appointment Type:Echocardiogram Complete Study Appointment Date:12/02/2021 11:30:00 AM Scheduled Provider:Jose Martin Lomas M.D. Location:[facility] Appointment Type:CCC EP Established Patient Appointment Date:12/05/2021 10:30:00 AM Scheduled Provider:Emmanuel Broussard MD Location:[facility] Appointment Type:CON EP Established Patient Appointment Date:04/22/2022 10:15:00 AM Scheduled Provider:Vlad Varner M.D. Location:[facility] Appointment Type:BUDDY EP Established Patient Immunizations Given and Recorded Vaccine Date Status Refusal Reason influenza virus vaccine, live, trivalent 05/09/21 Recorded SARS-CoV-2 mRNA (5y-11y) vaccine 05/09/21 Recorded SARS-CoV-2 (COVID-19) mRNA BNT-162b2 vax 1 07/28/20 Recorded SARS-CoV-2 (COVID-19) mRNA BNT-162b2 vax 2 07/03/20 Recorded 1Result Comment: [facility] 2Result Comment: [facility] Medications allopurinol 100 mg oral tablet 200 mg, 2 tablet(s), Oral, daily, 180 tablet(s), Tablet(s), 3, 3, Route to Pharmacy Electronically,[facility] #[id number], [id number], 182.88, cm, 05/23/2021 0950, Height, 119, kg, 05/23/2021 0950, Weight Start Date: 05/23/21 Stop Date: 05/18/22 Status: Ordered amiodarone 100 mg oral tablet 100 mg, 1 tablet(s), Oral, daily, 90 tablet(s), Tablet(s), 3, 3, Pt is now taking 100mgs a day, Route to Pharmacy Electronically, [facility] #[id number], [id number], 182.88, cm, 05/23/2021 0950, Height, 119, kg, 05/23/2021... Start Date: 05/23/21 Stop Date: 05/18/22 Status: Ordered amLODIPine 10 mg oral tablet 10 mg, 1 tablet(s), Oral, daily, 90 tablet(s), Tablet(s), 3, 3, Route to Pharmacy Electronically, [facility] #[id number], [id number], 182.88, cm, 05/23/2021 0950, Height, 119, kg, 05/23/2021 0950, Weight Start Date: 05/23/21 Status: Ordered aspirin 81 mg oral enteric coated tablet 81 mg, 1 tablet(s), Oral, daily, Tab EC, 0 Start Date: 07/05/20 Status: Ordered atorvastatin 80 mg oral tablet See Instructions, 90 tablet(s), 2, TAKE 1 TABLET(80 MG) BY MOUTH DAILY, [id number], [id number], Instructions Replace Required Details, 182, cm, 12/10/2020 1222, Height, 115.8,... Start Date: 01/16/21 Status: Ordered ezetimibe 10 mg oral tablet 1 tablet(s), Oral, daily, 30 tablet(s), 10, 0, Route to Pharmacy Electronically, [facility] #[id number], [id number], 182, cm, 12/10/2020 1222, Height, 115.8, kg, 22, Weight Start Date: 01/25/21 Status: Ordered furosemide 20 mg oral tablet See Instructions, # 90 tablet(s), Refill #: 3 Total Refills: 3, TAKE 1 TABLET BY MOUTH DAILY, [facility] #[id number] Start Date: 08/30/20 Status: Ordered levothyroxine 25 mcg (0.025 mg) oral tablet 25 mcg, 1 tablet(s), Oral, daily before breakfast, 90 tablet(s), Tablet(s), 2, 2, Route to PharmacyElectronically, [facility] #[id number], [id number], 182, cm, 07/05/2021 0928, Height, 120.2, kg, [...] stents 1 Complete d Prostatectomy Completed 2018 Results Radiology Reports * Exam Date Time Procedure Performing Provider Status 08/01/21 3:51 PM PET/CT SB-MT INIT F1 8 PSMA PYLARIFRomina Ramirez [employer]; Auth (Verified) Notes: (PET/CT SB-MT INIT F18 PSMA PYLARIFY) Reason For Exam: Malignant neoplasm of prostate PET/CT SB-MT INIT F18 PSMA PYLARIFY F18 PROSTATE SPECIFIC MEMBRANE ANTIGEN PET-CT SCAN. HISTORY: High risk prostate cancer. Post prostatectomy. Initial staging examination. RADIOPHARMACEUTICAL: 9.8 mCi [id number] (Pylarify) intravenously. TECHNIQUE: The area scanned spanned from skull base to proximal thighs. Axial low-dose and non-contrast CT images are used for metabolic image fusion and not independent disease diagnosis. If a diagnostic CT scan is required, the Radiology Department should be consulted for an adjunct scan. After intravenous administration of [id number], a series of emission PET images were reconstructed using standard algorithms. COMPARISON: Chest CT scan of 07/05/2020. FINDINGS: There is expected physiologic activity in the lacrimal, parotid, submandibular salivary glands, liver, spleen, pancreas, dorsal root, celiac ganglia, bowel, kidneys, urinary tract, blood pool and bone marrow. PELVIS: Prostate bed: Heterogeneous mild to moderate activity (maximum standardized uptake values up to 2.7), likely represents post operative inflammatory change. There is no focus of marked uptake suspicious of residual or recurrent disease. Lymph nodes: No inguinal lymph node enlargement or abnormal uptake. Bilateral external iliac and left inguinal lymphadenectomy clips are identified. There are no pelvic foci of marked metabolism suspicious of locoregional disease. ABDOMEN: No retroperitoneal lymph node enlargement or abnormal activity. THORAX: No hilar, mediastinal lymph node enlargement or marked uptake. SKELETON: There are no foci of marked activity suspicious of metastases. FUSION CT FINDINGS: Cardiac enlargement, operative changes, ascending aortic dilatation (AP caliber 4.5 cm), 8 mm posterior left upper lobe nodule (slight activity), large hiatus hernia, large gallstone, left greater than right exophytic renal cysts and small fat-containing umbilical hernia. Moderate size bilateral pleural effusions have resolved. IMPRESSION: Likely post operative prostatectomy bed heterogeneous activity. No evidence of pelvic, retroperitoneal lymphadenopathy or distant metastatic disease. Additional F-[address] findings are described in the report body. . Dictating Physician: Mauricio Trivedi M.D. Releasing Physician: Mauricio Trivedi M.D. Signature Electronically Authorized Authorized Date/Time: 01-AUG-2021 04:53 pm Social History Social History Type Response Alcohol [...] Safety Implantable Status Assigning Authority Unknown Unknown [id number] Unknown 03/04/23 Unknown Unknown Active Unkn own Procedure Provider Procedure Date Device Type Site Mitral Valve Annuloplasty Unknown 07/11/20 Unknown Unknown Device Identifier Serial Number Lot or Batch Number Manufacturing Date Expiration Date Distinct Identification Code MRI Safety Implantable Status Assigning Authority [id number] Unknown Unknown 03/13/24 Unknown MR Maria onal Active GS1 Goals Prevent Readmission Through [...] Date:05/28/20 End Date: Status:Met Progression:Met Note * Mauricio Trivedi M.D.: VERIFY, VERIFY, PERFORM Event Display: Interpretation: Authored Date: [id number] F18 PROSTATE SPECIFIC MEMBRANE ANTIGEN PET-CT SCAN. HISTORY: High risk prostate cancer. Post prostatectomy. Initial staging examination. RADIOPHARMACEUTICAL: 9.8 mCi [id number] (Pylarify) intravenously. TECHNIQUE: The area scanned spanned from skull base to proximal thighs. Axial low-dose and non-contrast CT images are used for metabolic image fusion and not independent disease diagnosis. If a diagnostic CT scan is required, the Radiology Department should be consulted for an adjunct scan. After intravenous administration of [id number], a series of emission PET images were reconstructed using standard algorithms. COMPARISON: Chest CT scan of 07/05/2020. FINDINGS: There is expected physiologic activity in the lacrimal, parotid, submandibular salivary glands, liver, spleen, pancreas, dorsal root, celiac ganglia, bowel, kidneys, urinary tract, blood pool and bone marrow. PELVIS: Prostate bed: Heterogeneous mild to moderate activity (maximum standardized uptake values up to 2.7), likely represents post operative inflammatory change. There is no focus of marked uptake suspicious of residual or recurrent disease. Lymph nodes: No inguinal lymph node enlargement or abnormal uptake. Bilateral external iliac and left inguinal lymphadenectomy clips are identified. There are no pelvic foci of marked metabolism suspicious of locoregional disease. ABDOMEN: No retroperitoneal lymph node enlargement or abnormal activity. THORAX: No hilar, mediastinal lymph node enlargement or marked uptake. SKELETON: There are no foci of marked activity suspicious of metastases. FUSION CT FINDINGS: Cardiac enlargement, operative changes, ascending aortic dilatation (AP caliber 4.5 cm), 8 mm posterior left upper lobe nodule (slight activity), large hiatus hernia, large gallstone, left greater than right exophytic renal cysts and small fat-containing umbilical hernia. Moderate size bilateral pleural effusions have resolved. IMPRESSION: Likely post operative prostatectomy bed heterogeneous activity. No evidence of pelvic, retroperitoneal lymphadenopathy or distant metastatic disease. Additional F-[address] findings are described in the report body. . Dictating Physician: Mauricio Trivedi M.D. Releasing Physician: Mauricio Trivedi M.D. Signature Electronically Authorized Authorized Date/Time: 01-AUG-2021 04:53 pm Care Team Personnel Name: Emmanuel Broussard MD Address: [address] [place] [address] Dr [address] [place] [address] [place] Name: Kemi Daley MD Address: [address] [phone] [place] Name: Vlad Varner M.D. Address: [address] [place] [address] [address] [place] [address] [place] Name: Jose Martin Lomas M.D. Address: [facility] [address] [place] [address] Rd [address] [place] [address] [place] Name: Mark Sesay M.D. Address: [address] [place] [address] [address] [place], [place] [address]- Name: Fritz Oreilly MD Address: [address] [place] [address] [address] [place], [place] [phone] [place] Name: Jada Reynaga MD Address: [address] [place] [address] Rd [address] [place] [address] [place] Name: Yonas Clements MD Address: [address] [place] [address] Dr [address] [place] [address] [place]
--- OUTSIDE RECORDS SUMMARY | 2024-04-20 01:04 | XMS_ITS | Continuity of Care Document ---
Author Organization [facility] Address [address] [place] [phone] Care Team Providers Care Industrial Economics Professor Name Role Phone Emmanuel Broussard Primary Care Physician [phone] Encounter [facility] Financial Number [id number] Date(s): 09/03/22 - 09/03/[address] [phone] Discharge Disposition: Home or Self Care Attending Physician: Kemi Daley MD Referring Physician: Kemi Daley MD Allergies, Adverse Reactions, Alerts No Known Allergies Assessment and Plan Future Appointments Appointment Date:12/31/2022 10:00:00 AM Scheduled Provider:Emmanuel Broussard MD Location:[facility] Appointment Type:CON CPE Complete Physical Exam Appointment Date:06/22/2023 11:30:00 AM Scheduled Provider:Jose Martin Lomas M.D. Location:[facility] Established Patient Cesilia Appointment Date:09/07/2023 10:00:00 AM Scheduled Provider:Kemi Daley MD Location:[facility] Appointment Type:[facility] EP Established Patient Immunizations Given and Recorded Vaccine Date Status Refusal Reason influenza virus vaccine, live, trivalent 05/09/21 Recorded SARS-CoV-2 mRNA (5y-11y) vaccine 05/09/21 Recorded SARS-CoV-2 (COVID-19) mRNA BNT-162b2 vax 1 07/28/20 Recorded SARS-CoV-2 (COVID-19) mRNA BNT-162b2 vax 2 07/03/20 Recorded 1Result Comment: [place] 2Result Comment: [place], [place] Medications allopurinol 100 mg oral tablet 100 mg, 1 tablet(s), Oral, bid, 180 tablet(s), 3, Route to Pharmacy Electronically, [facility] #[id number], [id number], 183, cm, 02/10/2022 1407, Height, 111.13, kg, 02/10/2022 1407, Weight Start Date: 05/06/22 Status: Ordered amLODIPine 10 mg oral tablet 10 mg, 1 tablet(s), Oral, daily, 90 tablet(s), Tablet(s), 3, 3, [id number], [id number], 183, cm, 07/01/2022 1255, Height, 117, kg, 07/01/2022 1255, Weight Start Date: 08/25/22 Status: Ordered aspirin 81 mg oral enteric coated tablet 81 mg, 1 tablet(s), Oral, daily, Tab EC, 0 Start Date: 07/05/20 Status: Ordered atorvastatin 80 mg oral tablet 1 tablet(s), Oral, daily, 90 tablet(s), 2, [id number], [id number], 182, cm, 01/14/2022 0958, Height, 116.3, kg, 01/14/2022 1002, Weight Start Date: 01/28/22 Status: Ordered cloNIDine 0.1 mg oral tablet 0.1 mg, 1 tablet(s), Oral, bid, 180 tablet(s), Tablet(s), 3, 3, [id number], [id number], 183, cm, 07/01/2022 1255, Height, 117, kg, 07/01/2022 1255, Weight Start Date: 07/02/22 Stop Date: 06/27/23 Status: Ordered ezetimibe 10 mg oral tablet 1 tablet(s), Oral, daily, 30 tablet(s), 7, Route to Pharmacy Electronically, [facility] #[id number], [id number], 182, cm, 01/14/2022 0958, Height, 116.3, kg, 01/14/2022 1002, Weight Start Date: 01/28/22 Status: Ordered levothyroxine 50 mcg (0.05 mg) oral tablet 50 mcg, 1 tablet(s), Oral, daily before breakfast, 90 tablet(s), Tablet(s), 3, 3, Route to PharmacyElectronically, [facility] #[id number], [id number], 182, cm, 12/05/2021 1020, Height, 114, kg, 12/05/2021 1022, Weight Start Date: 12/10/21 Status: Ordered Lupron mg, 0 Start Date: 12/05/21 Status: Ordered Metoprolol Tartrate 50 mg oral tablet 1 tablet(s), Oral, bid, 180 tablet(s), 3, Route to Pharmacy Electronically, [facility] #02576, [id number], 182, cm, 12/05/2021 1020, Height, 114, kg, 12/05/2021 1022, Weight Start Date: 12/30/21 Status: Ordered MiraLax oral powder for reconstitution 1 packet(s), Oral, daily, PRN, REC Powder, 0, constipation Start Date: 08/20/20 Status: Ordered Problem List Condition Confirmation Course Effective Dates Status H ealth Status Informant Anemia of chronic disease Confirmed Active Ascending aorta dilation Confirmed Active CKD (chronic kidney disease), stage III Confirmed Active CAD (coronary artery disease) Confirmed Active Gall stone Confirmed Active Gout Confirmed Active S/P prostatectomy Confirmed Active Large hiatal hernia Confirmed Active S/P CABG x 1 Confirmed Active History of endocarditis Confirmed Active S/P mitral valve repair Confirmed Active Hypercalcemia Confirmed Active Hyperlipidemia Confirmed Active Hypertension Confirmed Active Hypothyroidism Confirmed Active Trouble in sleeping Confirmed Active Prostate cancer Confirmed Active Near syncope Confirmed Active Medication monitoring encounter Confirmed Active Persistent atrial fibrillation Confirmed Active Proteinuria Confirmed Active Diagnosis Diagnosis Type Effective Dates Health Status Cl inical Service Informant Hypothyroidism 09/03/22 Non-Specified Hypothyroidism 09/03/22 Non-Specified Procedures Procedure Date Related Diagnosis Body Site Status Biopsy of prostate Comple mary Cardiac catheterization C ompleted cardiac stents 1 Complete d Prostatectomy Completed 2018 Results Laboratory List Name Date Free T4 09/03/22 TSH (Highly Sensitive) 09/03/22 Most recent to oldest [Reference Range]: 1 TSH, Highly Sensitive [0.47-4.68 uIU/mL] 5.20 uIU/mL *H* (09/03/22 10:24 AM) Free T4 [0.8-2.2 ng/dL] 1.1 ng/dL (09/03/22 10:24 AM) Social History Social History Type Response Alcohol Current some day alc ohol user Substance Abuse Never drug user Smoking Status Never smoker;Former smokeless tobacco user, quit more than 30 days ago; Tobacco Cessation Counseling Requested N/A entered on: 12/05/21 Sex Male Implantable Device List Procedure Provider [...] Safety Implantable Status Assigning Authority Unknown Unknown [id number] Unknown 03/04/23 Unknown Unknown Active Unkn own Procedure Provider Procedure Date Device Type Site Mitral Valve Annuloplasty Unknown 07/11/20 Unknown Unknown Device Identifier Serial Number Lot or Batch Number Manufacturing Date Expiration Date Distinct Identification Code MRI Safety Implantable Status Assigning Authority [id number] Unknown Unknown 03/13/24 Unknown MR Conditi onal [...] Date:05/28/20 End Date: Status:Met Progression:Met Note * Juan Ingram Patient Tool Keeper: PERFORM Event Display: Authorization to Treat Authored Date: * Juan Ingram Patient Tool Keeper: PERFORM Event Display: Authorization to Treat Authored Date: * Event Display: ROI_Correspondence * Event Display: ROI_Correspondence Authored Date: * Event Display: ROI_Correspondence * Event Display: ROI_Correspondence * Event Display: ROI_Correspondence Authored Date: * Event Display: ROI_Correspondence Authored Date: * Event Display: ROI_Correspondence Patient Care team information Care Team Personnel Name: Jada Reynaga MD Position: Physician - Cardiology Member Role: Specialist Physician Address: Address: [address] [place] [address] [place] [address] [place] Name: Nancy Suresh Specialist Position: Population Health Coordinator Member Role: Population Health Coordinator Name: Khoi Hendrickson Member Role: Urologist Name: Vlad Varner MD Position: Physician - Electrophysiology Member Role: Specialist Physician Address: Address: [address] [place] [address] [place] [address] [place] Name: Gab Marquez M.D. Position: Physician - Infectious Disease Member Role: Infectious Disease Address: Address: [address] [place] [address] [address] [place] [address] [place] Name: Yonas Clements MD Position: Physician - Electrophysiology Member Role: Specialist Physician Address: Address: [address] [place] [address] [place] [address] [place] Name: Makr Sesay M.D. Position: Physician - Cardiothoracic Surgery Member Role: Specialist Physician Address: Address: [address] [place] [address] [address] [place] [address]- Name: Darling Santiago HOSPICE CLINICAL MARKETER Position: AMB HOSPICE CLINICAL MARKETER/[place] Member Role: Nurse Practitioner Address: Address: [address] [place], [place] [address] [place] [address] [place] Name: Kemi Daley MD Position: Physician - Endocrine Member Role: Specialist Physician Address: Address: [address] [facility] [address] [facility] [address] [place], [place] [id number] [place] Name: Fritz Oreilly MD Position: Physician - Infectious Disease Member Role: Specialist Physician Address: Address: [address] [place], [place] [id number] [place] Name: Jose Martin Lomas M.D. Position: Physician - Cardiology Member Role: Specialist Physician Address: Address: [facility] [address] [place] [address] [place] Name: Macy Ansari RN Position: AMB ONC Nurse Navigator Member Role: Nurse Navigator Name: Emmanuel Broussard MD Position: Physician - Internal Medicine Member Role: Primary Care Physician Address: Address: [address] [place] [address] [place] Name: Jennie Pendleton Drums Teacher Position: OP Drums Teacher Mechanic Assistant Member Role: Drums Teacher Care Team Related Persons Name: JL BROWER Name: ALLAN VALDES Name: FREDA REYES
--- OUTSIDE RECORDS SUMMARY | 2024-04-20 01:04 | XMS_ITS | Continuity of Care Document ---
Author Organization [facility] Address [address] [place] [id number] Care Team Providers Care Woods Rider Name Role Phone Courtney Prado Primary Care Physician [phone] Encounter [facility] Financial Number [id number] Date(s): 03/28/24 - 03/28/[address] [phone] [place] Discharge Disposition: Home or Self Care Attending Physician: Shereen Owens CONVEX GRINDER Admitting Physician: Shereen Owens CONVEX GRINDER Referring Physician: Shereen Owens CONVEX GRINDER Allergies, Adverse Reactions, Alerts No Known Allergies Assessment and Plan Future Appointments Appointment Date:06/01/2024 11:00:00 AM Scheduled Provider:Jeromy Perez MD Location:[facility] Appointment Type:S Established Patient 20mins Appointment Date:09/12/2024 10:30:00 AM Scheduled Provider:Kemi Daley MD Location:[facility] Appointment Type:[facility] EP Established Patient Appointment Date:10/10/2024 10:30:00 AM Scheduled Provider: Location:[facility] Cardiology Appointment Type:Echocardiogram Complete Study Appointment Date:10/10/2024 11:30:00 AM Scheduled Provider:Jose Martin Lomas M.D. Location:[facility] Care Appointment Type:[facility] EP Established Patient Cesilia Appointment Date:10/10/2024 01:30:00 PM Scheduled Provider:Courtney Prado MD Location:[facility] Appointment Type:[facility] EP Established Patient Immunizations Given and Recorded Vaccine Date Status Refusal Reason influenza virus vaccine, inactivated 02/16/23 Give n influenza virus vaccine, live, trivalent 05/09/21 Recorded SARS-CoV-2 mRNA (5y-11y) vaccine 05/09/21 Recorded SARS-CoV-2 (COVID-19) mRNA BNT-162b2 vax 1 07/28/20 Recorded SARS-CoV-2 (COVID-19) mRNA BNT-162b2 vax 2 07/03/20 Recorded 1Result Comment: [place] 2Result Comment: [place] Medications allopurinol 100 mg oral tablet 1 tablet(s), Oral, bid, 180 tablet(s), 0, Route to Pharmacy Electronically, [facility] #[id number], [id number], 182, cm, 02/25/24 13:51:00 CDT, Height, 105, kg, 02/25/24 13:51:00 CDT, Weight Start Date: 02/29/24 Status: Ordered amLODIPine 10 mg oral tablet 1 tablet(s), Oral, daily, 90 tablet(s), 0, Route to Pharmacy Electronically, [facility] #[id number], [id number], 182, cm, 02/25/24 13:51:00 CDT, Height, 105, kg, 02/25/24 13:51:00 CDT, Weight Start Date: 02/29/24 Status: Ordered aspirin 81 mg oral enteric coated tablet 81 mg, 1 tablet(s), Oral, daily, Tab EC, 0 Start Date: 07/05/20 Status: Ordered atorvastatin 80 mg oral tablet 1 tablet(s), Oral, daily, 90 tablet(s), 3, Route to Pharmacy Electronically, [facility] #[id number], [id number], 183, cm, 02/16/23 13:04:00 CDT, Height, 110.5, kg, 02/16/23 13:04:00 CDT, Weight Start Date: 07/13/23 Status: Ordered cloNIDine 0.1 mg oral tablet 1 tablet(s), Oral, bid, 180 tablet(s), 2, 2, Route to Pharmacy Electronically, [facility]#[id number], [id number], 183, cm, 02/16/23 13:04:00 CDT, Height, 110.5, kg, 02/16/23 13:04:00 CDT, Weight Start Date: 08/06/23 Stop Date: 05/02/24 Status: Ordered ezetimibe 10 mg oral tablet 1 tablet(s), Oral, daily, 90 tablet(s), 3, Route to Pharmacy Electronically, [facility] #[id number], [id number], 182, cm, 10/28/23 9:42:00 CDT, Height, 105.2, kg, 10/28/23 9:42:00 CDT, Weight Start Date: 01/07/24 Status: Ordered irbesartan 150 mg oral tablet 150 mg, 1 tablet(s), Oral, daily, 90 tablet(s), Tablet(s), 3, 3, Route to Pharmacy Electronically, [facility] #[id number], [id number], 182, cm, 03/28/24 13:54:00 DRY KILN WORKER, Height, 111, kg, 03/28/24 13:54:00 DRY KILN WORKER, Weight Start Date: 03/28/24 Status: Ordered levothyroxine 50 mcg (0.05 mg) oral tablet 1 tablet(s), Oral, daily before breakfast, 90 tablet(s), 0, Route to Pharmacy Electronically, [facility] #[id number], [id number], 182, cm, 02/25/24 13:51:00 CDT, Height, 105, kg, 02/25/24 13:51:00 CDT, Weight Start Date: 03/18/24 Status: Ordered Metoprolol Tartrate 50 mg oral tablet 1 tablet(s), Oral, bid, 180 tablet(s), 3, Route to Pharmacy Electronically, [facility] #[id number], [id number], 182, cm, 10/28/23 9:42:00 CDT, Height, 105.2, kg, 10/28/23 9:42:00 CDT, Weight Start Date: 11/09/23 Status: Ordered minoxidil 2.5 mg oral tablet 1 tablet(s), Oral, bid, 180 tablet(s), 0, Route to Pharmacy Electronically, [facility] #[id number], [id number], 182, cm, 02/25/24 13:51:00 CDT, Height, 105, kg, 02/25/24 13:51:00 CDT, Weight Start Date: 02/25/24 Status: Ordered pantoprazole 40 mg oral delayed release tablet 40 mg, 1 tablet(s), Oral, bid before meals, 180 tablet(s), Tab EC, 0, 0, Route to Pharmacy Electronically, [facility] #[id number], [id number], 182, cm, 11/24/2022 1326, Height, 106, kg, 11/23/2022 1254, Weight Start Date: 11/25/22 Stop Date: 02/23/23 Status: Ordered Potassium Chloride (Eqv-K-Tab) 10 mEq oral tablet, extended release 10 mEq, 1 tablet(s), Oral, daily with breakfast, 30 tablet(s), Tablet CR, 0 Start Date: 03/24/24 Status: Ordered sucralfate 1 g/10 mL oral suspension 1 gm, 10 mL, Oral, qid, 1,200 mL, Susp, 0, 0, Route to Pharmacy Electronically, [facility][id number], [id number], 182, cm, 11/24/2022 1326, Height, 106, kg, [...] with esophagitis Confirmed Active Gout Confirmed Active Hx of gout Confirmed Active S/P prostatectomy Confirmed Active Large [...] 1Prostate and pelvic lymph nodes completed 10/25/2022 Diagnosis Diagnosis Type Effective Dates Health Status Clini saray Service Informant Elevated PSA 03/28/24 Non-Specified Procedures Procedure Date Related Diagnosis Body Site Status Repair of diaphragmatic hiatal hernia 11/23/22 Completed UPPER GI ENDOSCOPY PERFORMED 2022 Completed Biopsy of prostate Comple mary Cardiac catheterization C ompleted cardiac stents 2 Complete d Prostatectomy Completed 2018 Results Laboratory List Name Date PSA Total 03/28/24 Most recent to oldest [Reference Range]: 1 PSA [<=3.9 ng/mL] <0.1 ng/mL 1 (03/28/24 2:52 PM) 1Interpretive Data: The concentration was measured by immunoassay on a [employer] analyzer. Results from different assay methods should not be used interchangeably. Social History Social History Type Response Alcohol Never alcohol user Substance Abuse Never drug user Smoking Status Never smoker;Never; Tobacco Cessation Counseling Requested No entered on: 11/23/22 Sex Male Sex Representation Male (finding) Implantable Device List Procedure Provider Procedure Date [...] Safety Implantable Status Assigning Authority Unknown Unknown [id number] Unknown 03/04/23 Unknown Unknown Active Unkn own Procedure Provider Procedure Date Device Type Site Mitral Valve Annuloplasty Unknown 07/11/20 Unknown Unknown Device Identifier Serial Number Lot or Batch Number Manufacturing Date Expiration Date Distinct Identification Code MRI Safety Implantable Status Assigning Authority [id number] Unknown Unknown 03/13/24 Unknown MR Maria onani Active GS1 Goals Prevent Readmission Through Ongoing [...] Date: Status:Met Progression:Met Note * Event Display: Authorization to Treat * Event Display: Authorization to Treat * Vini Núñez TextronicsAccount Supervisor: PERFORM Event Display: ROI_Correspondence Authored Date: [id number] * Event Display: ROI_Correspondence * Event Display: ROI_Correspondence Authored Date: [id number] Patient Care team information Care Team Personnel Name: Jada Reynaga MD Position: Physician - Cardiology Member Role: Specialist Physician Address: [address] [place] [address] [place] Name: Nancy Suresh Specialist Position: Population Health Coordinator Member Role: Population Health Coordinator Name: Shereen Owens CONVEX GRINDER Position: AMB CONVEX GRINDER/PA Member Role: Nurse Practitioner Address: [address] [place] [address] [place] Name: Khoi Hendrickson Member Role: Urologist Name: Kenia Gregory M.D. Position: Physician - Endocrine Member Role: Penetration Tester Address: [address] [phone] [place] Name: Vlad Varner MD Position: Physician - Electrophysiology Member Role: Specialist Physician Address: [address] [place] [address] [place] Name: Jeromy Perez MD Position: Physician - Urology Member Role: Urologist Address: [address] [place] [address] [place] Name: Gab Marquez M.D. Position: Physician - Infectious Disease Member Role: Infectious Disease Address: [address] [place] [address] [place] Name: Sheron Lamb SPECIALIST II Position: Population Health Coordinator Member Role: Population Health Coordinator Name: Yonas Clements MD Member Role: Specialist Physician Name: Mark Sesay M.D. Position: Physician - Cardiothoracic Surgery Member Role: Specialist Physician Address: [address] [facility] [address] [place], [place] [address]- Name: Courtney Prado MD Position: Physician - Internal Medicine Member Role: Primary Care Physician Address: [address] [facility] [address] [place] [address] [place] Name: Jessica Crowe CONVEX GRINDER Position: AMB CONVEX GRINDER/PA Member Role: Nurse Practitioner Address: [address] [facility] [address] [place] [address] [place] Name: Fritz Oreilly MD Position: Physician - Infectious Disease Member Role: Specialist Physician Address: [address] [place], [place] [phone] [place] Name: Jose Martin Lomas M.D. Position: Physician - Cardiology Member Role: Specialist Physician Address: [facility] [address] [place] [address] [place] Name: Macy Ansari RN Position: AMB ONC Nurse Navigator Member Role: Nurse Navigator Care Team Related Persons Name: JL BROWER Name: ALLAN VALDES Name: FREDA REYES Insurance Providers Guarantor name: SHANONVIVIANA BROWN Health Plan Information #: 1 Payer: Medicare Member Number: [id number] Policy Number: NA Health Plan Information #: 2 Payer: Medicare Supplement Member Number: [id number] Policy Number: NA
--- OUTSIDE RECORDS SUMMARY | 2024-04-20 01:04 | XMS_ITS | Continuity of Care Document ---
Author Organization [facility] Address [address] [place] [id number] Care Team Providers Care Buggy Runner Name Role Phone Courtney Prado Primary Care Physician [facility] Financial Number [id number] Date(s): 04/12/24 - 04/12/[address] [id number] Discharge Disposition: Home or Self Care Attending Physician: Sheeren Owens NP Admitting Physician: Shereen Owens NP Referring Physician: Shereen Owens EVP CHIEF EXPLORATION OFFICER Allergies, Adverse Reactions, Alerts No Known Allergies Assessment and Plan Future Appointments Appointment Date:06/01/2024 11:00:00 AM Scheduled Provider:Jeromy Perez MD Location:[facility] Appointment Type:USSL Established Patient 20mins Appointment Date:09/12/2024 10:30:00 AM Scheduled Provider:Kemi Daley MD Location:[facility] Appointment Type:[facility] EP Established Patient Appointment Date:10/10/2024 10:30:00 AM Scheduled Provider: Location:[facility] Cardiology Appointment Type:Echocardiogram Complete Study Appointment Date:10/10/2024 11:30:00 AM Scheduled Provider:Jose Martin Lomas M.D. Location:[facility] Appointment Type:CCC EP Established Patient Cesilia Appointment Date:10/10/2024 01:30:00 [...] BNT-162b2 vax 2 07/03/20 Recorded 1Result Comment: [place] 2Result Comment: [place] Medications allopurinol 100 mg oral tablet 1 tablet(s), Oral, bid, 180 tablet(s), 0, Route to Pharmacy Electronically, [facility] #[id number], [id number], 182, cm, 02/25/24 13:51:00 CDT, Height, 105, kg, 02/25/24 13:51:00 CDT, Weight Start Date: 02/29/24 Status: Ordered amLODIPine 10 mg oral tablet 1 tablet(s), Oral, daily, 90 tablet(s), 0, Route to Pharmacy Electronically, [facility] #[id number], [id number], 182, cm, 02/25/24 13:51:00 CDT, Height, 105, kg, 02/25/24 13:51:00 CDT, Weight Start Date: 02/29/24 Status: Ordered aspirin 81 mg oral enteric coated tablet 81 mg, 1 tablet(s), Oral, daily, Tab EC, 0 Start Date: 07/05/20 Status: Ordered atorvastatin 80 mg oral tablet 1 tablet(s), Oral, daily, 90 tablet(s), 3, Route to Pharmacy Electronically, [facility] #[id number], [id number], 183, cm, 02/16/23 13:04:00 CDT, Height, 110.5, kg, 02/16/23 13:04:00 CDT, Weight Start Date: 07/13/23 Status: Ordered cloNIDine 0.1 mg oral tablet 1 tablet(s), Oral, bid, 180 tablet(s), 2, 2, Route to Pharmacy Electronically, [facility]#[id number], [id number], 183, cm, 02/16/23 13:04:00 CDT, Height, 110.5, kg, 02/16/23 13:04:00 CDT, Weight Start Date: 08/06/23 Stop Date: 05/02/24 Status: Ordered ezetimibe 10 mg oral tablet 1 tablet(s), Oral, daily, 90 tablet(s), 3, Route to Pharmacy Electronically, [facility] #[id number], [id number], 182, cm, 10/28/23 9:42:00 CDT, Height, 105.2, kg, 10/28/23 9:42:00 CDT, Weight Start Date: 01/07/24 Status: Ordered irbesartan 150 mg oral tablet 150 mg, 1 tablet(s), Oral, daily, 90 tablet(s), Tablet(s), 3, 3, Route to Pharmacy Electronically, [facility] #[id number], [id number], 182, cm, 03/28/24 13:54:00 ELECTRICIAN BUS, Height, 111, kg, 03/28/24 13:54:00 ELECTRICIAN BUS, Weight Start Date: 03/28/24 Status: Ordered levothyroxine 50 mcg (0.05 mg) oral tablet 1 tablet(s), Oral, daily before breakfast, 90 tablet(s), 0, Route to Pharmacy Electronically, [facility] #[id number], [id number], 182, cm, 02/25/24 13:51:00 CDT, Height, 105, kg, 02/25/24 13:51:00 CDT, Weight Start Date: 03/18/24 Status: Ordered Metoprolol Tartrate 50 mg oral tablet 1 tablet(s), Oral, bid, 180 tablet(s), 3, Route to Pharmacy Electronically, [facility] #[id number], [id number], 182, cm, 10/28/23 9:42:00 CDT, Height, 105.2, kg, 10/28/23 9:42:00 CDT, Weight Start Date: 11/09/23 Status: Ordered minoxidil 2.5 mg oral tablet 1 tablet(s), Oral, bid, 180 tablet(s), 0, [id number], [id number], 182, cm, 02/25/24 13:51:00 CDT, Height, 105, kg, 02/25/24 13:51:00 CDT, Weight Start Date: 02/25/24 Status: Ordered pantoprazole 40 mg oral delayed release tablet 40 mg, 1 tablet(s), Oral, bid before meals, 180 tablet(s), Tab EC, 0, 0, [facility] to [id number], [id number], 182, cm, 11/24/2022 1326, Height, 106, kg, [...] Susp, 0, 0, [id number], [id number], 182, cm, 11/24/2022 1326, Height, 106, kg, [...] Dates Health Status Cl inical Service Informant Cardiomyopathy 04/12/24 Non-Specified Procedures Procedure Date Related Diagnosis Body Site Status Repair of diaphragmatic hiatal hernia 11/23/22 Completed UPPER GI ENDOSCOPY PERFORMED 2022 Completed Biopsy of prostate Comple mary Cardiac catheterization C ompleted cardiac stents 2 Complete d Prostatectomy Completed 2018 Results Laboratory List Name Date Basic Metabolic Profile (BMP) 04/12/24 Magnesium Level 04/12/24 Most recent to oldest [Reference Range]: 1 BUN [9-20 mg/dL] 24 mg/dL *H* (04/12/24 10:00 AM) Calcium [8.4-10.2 mg/dL] 9.7 mg/dL (04/12/24 10:00 AM) Chloride [98-107 mmol/L] 110 mmol/L *H* (04/12/24 10:00 AM) CO2 [22-30 mmol/L] 20 mmol/L *L* (04/12/24 10:00 AM) Glucose [74-106 mg/dL] 102 mg/dL (04/12/24 10:00 AM) Magnesium [1.6-2.6 mg/dL] 2.0 mg/dL (04/12/24 10:00 AM) Potassium [3.4-5.1 mmol/L] 4.5 mmol/L (04/12/24 10:00 AM) Sodium [137-145 mmol/L] 141 mmol/L (04/12/24 10:00 AM) Creatinine [0.70-1.30 mg/dL] 2.75 mg/dL *H* (04/12/24 10:00 AM) eGFR(CKD-EPI) [>=90 mL/min/1.73m2] 23 mL /min/1.73m2 1 *L* (04/12/24 10:00 AM) eCrCl(C-Gault) 0.3 mL/min/kg 2 (04/12/24 10:00 AM) Anion Gap [7-16 mmol/L] 11 mmol/L (04/12/24 10:00 AM) 1Interpretive Data: eGFR (CKD-EPI) is an estimate of the glomerular filtration rate using the race-free 2020 Chronic Kidney Disease Epidemiology Collaboration equation. The calculation utilizes the patient???s recorded sex and age and the measured serum creatinine. Kzi-SMW-cejiufz factors that may affect serum creatinine include altered generation (muscle wasting, amputees, body builders, vegan diet), drugs affecting tubular secretion (cimetidine and many others), and extra-renal elimination (gastrointestinal and ???third-space?? losses). Interpretive guidelines are based on steady-state renal function. 2Interpretive Data: When multiplied by the patient's body weight (in kg), eCrCl(C-Gault) is an estimate of the creatinine clearance using the Cockroft- Gault formula. It is widely used for adjusting drug dosages. Since the result is shown per kg, there is no established reference range. Social History Social History Type Response Alcohol [...] Safety Implantable Status Assigning Authority Unknown Unknown [id number] Unknown 03/04/23 Unknown Unknown Active Unkn own Procedure Provider Procedure Date Device Type Site Mitral Valve Annuloplasty Unknown 07/11/20 Unknown Unknown Device Identifier Serial Number Lot or Batch Number Manufacturing Date Expiration Date Distinct Identification Code MRI Safety Implantable Status Assigning Authority [id number] Unknown Unknown 03/13/24 Unknown MR Candace onal Active GS1 Goals Prevent Readmission Through [...] Display: Authorization to Treat * [facility] Skinner: PERFORM Event Display: ROI_Correspondence Authored Date: [id number] * Event Display: ROI_Correspondence * Event Display: ROI_Correspondence Authored Date: [id number] US.doppler Carotid arteries - bilateral * Event Display: CAROTID BILAT DUPLEX SCAN * Event Display: CAROTID BILAT DUPLEX SCAN Authored Date: [id number] [facility] Vascular Lab [address] [place] [address] Carotid Color Duplex Report Patient Name: SHANON BROWN L : 1945 (78y 4m) Study Date: 04/12/2024 10:06:20 AM Gender: M Tech: [facility] Location: [facility]- Ref.Provider: SHEREEN OWENS Height(Inch): BSA: Weight(LB): Quality: Adequate Order Provider: SHEREEN OWENS PROCEDURES: Carotid Report: Carotid duplex examination of the extracranial arteries was performed using 2D, color and spectral doppler. INDICATIONS: Dizziness and giddiness R42. Measurements: Right Carotid Left Carotid Measurement Value Units Measurement Value Units Rt CCA Prx PSV 74.60 cm/secs Lt CCA Prx PSV 90.10 cm/sec Rt CCA Prx EDV 16.20 cm/secs Lt CCA Prx EDV 14.90 cm/sec Rt CCA Mid PSV 93.20 cm/secs Lt CCA Mid PSV 71.40 cm/sec Rt CCA Mid EDV 19.90 cm/secs Lt CCA Mid EDV 14.30 cm/sec Rt CCA Dst PSV 68.30 cm/secs Lt CCA Dst PSV 57.80 cm/sec Rt CCA Dst EDV 16.20 cm/secs Lt CCA Dst EDV 14.90 cm/sec Rt ICA Prx PSV 52.80 cm/secs Lt ICA Prx PSV 43.90 cm/sec Rt ICA Prx EDV 12.40 cm/secs Lt ICA Prx EDV 15.40 cm/sec Rt ICA Mid PSV 64.40 cm/secs Lt ICA Mid PSV 82.00 cm/sec Rt ICA Mid EDV 18.20 cm/secs Lt ICA Mid EDV 22.40 cm/sec Rt ICA Dst PSV 59.00 cm/secs Lt ICA Dst PSV 89.00 cm/sec Rt ICA Dst EDV 19.70 cm/secs Lt ICA Dst EDV 23.80 cm/sec Rt ECA PSV 70.80 cm/secs Lt ECA PSV 65.90 cm/sec Rt ECA EDV 13.00 cm/secs Lt ECA EDV 11.20 cm/sec RT ICA/CCA 0.69 ratio LT ICA/CCA 1.15 ratio Rt Vert PSV 34.20 cm/secs Lt Vert PSV 68.00 cm/secs Rt Vert EDV 9.05 cm/secs Lt Vert EDV 12.10 cm/secs Measurement Value Units Measurement Value Units Right Carotid Left Carotid - FINDINGS: Rt Common Carotid Artery: Atherosclerotic changes of the right common carotid artery with no hemodynamically significant Doppler findings. The plaque in the right common carotid artery appears to be calcified and regular. Right Carotid Bifurcation: Atherosclerotic changes are noted within the right carotid bifurcation. The plaque in the right carotid bifurcation appears to be calcified and regular. Rt External Carotid Artery: The right external carotid artery is patent without evidence of plaque formation. Rt Internal Carotid Artery: Atherosclerotic changes of the right internal carotid artery without hemodynamically significant Doppler findings. The plaque in the Right internal carotid artery appears to be heterogeneous and regular. Rt Vertebral Artery: The right vertebral artery is patent with antegrade flow. Lt Common Carotid Artery: Duplex imaging of the left common carotid artery is within normal limits without evidence of atherosclerotic disease. Left Carotid Bifurcation: Atherosclerotic changes are noted within the left carotid bifurcation. The plaque in the left carotid bifurcation appears to be heterogeneous and regular. Lt External Carotid Artery: The left external carotid artery is patent without evidence of plaque formation. Lt Internal Carotid Artery: Duplex imaging of the left internal carotid artery is within normal limits without evidence of atherosclerotic disease. Lt Vertebral Artery: The left vertebral artery is patent with antegrade flow. Previous Studies: Compared with study performed on 07/05/20, there has been no significant progression of the carotid artery disease. Performing Technologist: This exam was performed by Earline Bryant RVT. CONCLUSIONS: 1. Atherosclerotic changes as noted in the carotid segments above without evidence of hemodynamically significant stenosis. 2. Antegrade flow is noted in bilateral vertebral arteries. Electronically Signed By: Ward Schreiber MD 2024-04-12 14:12:24 ELECTRICIAN BUS CC: CC: Radiology * Event Display: Vascular Lab Patient Care team information Care Team Personnel Name: Jada Reynaga MD Position: Physician - Cardiology Member Role: Specialist Physician Address: [address] [facility] [address] [place] [address] [place] Name: Nancy Suresh Specialist Position: Population Health Coordinator Member Role: Population Health Coordinator Name: Shereen Owens EVP CHIEF EXPLORATION OFFICER Position: AMB EVP CHIEF EXPLORATION OFFICER/PA Member Role: Nurse Practitioner Address: [address] [place] [address] [place] Name: Khoi Hendrickson Member Role: Urologist Name: Kenia Gregory M.D. Position: Physician - Endocrine Member Role: Candle Pourer Address: [address] [address] [place], [place] [id number] [place] Name: Vlad Varner MD Position: Physician - Electrophysiology Member Role: Specialist Physician Address: [address] [place] [address] [place] Name: Jeromy Perez MD Position: Physician - Urology Member Role: Urologist Address: [address] [place] [address] [place] Name: Gab Marquez M.D. Position: Physician - Infectious Disease Member Role: Infectious Disease Address: [address] [facility] [address] [place] [address] [place] Name: Yonas Clements MD Member Role: Specialist Physician Name: Mark Sesay M.D. Position: Physician - Cardiothoracic Surgery Member Role: Specialist Physician Address: [address] [facility] [address] [place], [place] [address]- Name: Courtney Prado MD Position: Physician - Internal Medicine Member Role: Primary Care Physician Address: [address] [facility] [facility] [address] [facility] [place] [address] [place] Name: Jessica Crowe EVP CHIEF EXPLORATION OFFICER Position: AMB EVP CHIEF EXPLORATION OFFICER/PA Member Role: Nurse Practitioner Address: [address] [facility] [address] [place] [address] [place] Name: Fritz Oreilly MD Position: Physician - Infectious Disease Member Role: Specialist Physician Address: [address] [facility] [address] [place], [place] [id number] [place] Name: Jose Martin Lomas M.D. Position: Physician - Cardiology Member Role: Specialist Physician Address: [facility] [address] [place] [address] [place] Name: Macy Ansari RN Position: AMB ONC Nurse Navigator Member Role: Nurse Navigator Care Team Related Persons Name: JL BROWER Name: ALLAN VALDES Name: ALLAN VALDES Name: FREDA REYES Insurance Providers Guarantor name: SHANON BROWN Health Plan Information #: 1 Payer: Medicare Member Number: [id number] Policy Number: NA Health Plan Information #: 2 Payer: Medicare Supplement Member Number: [id number] Policy Number: NA
--- OUTSIDE RECORDS SUMMARY | 2024-04-20 01:04 | XMS_ITS | Continuity of Care Document ---
Author Organization [facility] Address [address] [place] [phone] Care Team Providers Care Commodity Management Specialist Name Role Phone Emmanuel Broussard Primary Care Physician [phone] Kemi Daley Unavailable Vlad Varner Unavailable Jose Martin Lomas Unavailable Mark Sesay Unavailable Fritz Oreilly Unavailable Jada Reynaga Unavailable Yonas Clements Unavailable Encounter [facility] Financial Number [id number] Date(s): 05/23/21 - 05/23/[address] [phone] Discharge Disposition: Home or Self Care Attending Physician: Emmanuel Broussard MD Referring Physician: Emmanuel Broussard MD Allergies, Adverse Reactions, Alerts No Known Allergies Assessment and Plan Future Appointments Appointment Date:06/12/2021 10:00:00 AM Scheduled Provider: Location:[facility] Appointment Type:[facility], Follow-Up Appointment Date:06/12/2021 11:00:00 AM Scheduled Provider:Jose Martin Lomas M.D. Location:[facility] Appointment Type:CCC EP Established Patient Appointment Date:07/05/2021 09:30:00 AM Scheduled Provider:Kemi Daley MD Location:[facility] Appointment Type:[facility] SERVICE SECRETARY New Patient Appointment Date:12/05/2021 10:30:00 AM Scheduled Provider:Emmanuel Broussard MD Location:[facility] Appointment Type:CON EP Established Patient Appointment Date:04/22/2022 10:15:00 AM Scheduled Provider:Vlad Varner M.D. Location:[facility] Appointment Type:BUDDY EP Established Patient Immunizations Given and Recorded Vaccine Date Status Refusal Reason influenza virus vaccine, live, trivalent 05/09/21 Recorded SARS-CoV-2 mRNA (5y-11y) vaccine 05/09/21 Recorded SARS-CoV-2 (COVID-19) mRNA BNT-162b2 vax 1 07/28/20 Recorded SARS-CoV-2 (COVID-19) mRNA BNT-162b2 vax 2 07/03/20 Recorded 1Result Comment: [place], [place] 2Result Comment: [place] Medications allopurinol 100 mg oral tablet 200 mg, 2 tablet(s), Oral, daily, 180 tablet(s), Tablet(s), 3, 3, Route to Pharmacy Electronically,[facility] #[id number], [id number], 182.88, cm, 05/23/2021 0950, Height, 119, kg, 05/23/2021 0950, Weight Start Date: 05/23/21 Stop Date: 05/18/22 Status: Ordered amiodarone 100 mg oral tablet 100 mg, 1 tablet(s), Oral, daily, 90 tablet(s), Tablet(s), 3, 3, Pt is now taking 100mgs a day, Route to Pharmacy Electronically, [facility] #[id number], [id number], 182.88, cm, 05/23/2021 0950, Height, 119, kg, 05/23/2021... Start Date: 05/23/21 Stop Date: 05/18/22 Status: Ordered amLODIPine 10 mg oral tablet 10 mg, 1 tablet(s), Oral, daily, 90 tablet(s), Tablet(s), 3, 3, Route to Pharmacy Electronically, [facility] #[id number], [id number], 182.88, cm, 05/23/2021 0950, Height, 119, kg, 05/23/2021 0950, Weight Start Date: 05/23/21 Status: Ordered aspirin 81 mg oral enteric coated tablet 81 mg, 1 tablet(s), Oral, daily, Tab EC, 0 Start Date: 07/05/20 Status: Ordered atorvastatin 80 mg oral tablet See Instructions, 90 tablet(s), 2, TAKE 1 TABLET(80 MG) BY MOUTH DAILY, Route to Pharmacy Electronically, [facility] #[id number], [id number], Instructions Replace Required Details, 182, cm, 12/10/2020 1222, Height, 115.8,... Start Date: 01/16/21 Status: Ordered ezetimibe 10 mg oral tablet 1 tablet(s), Oral, daily, 30 tablet(s), 10, 0, Route to Pharmacy Electronically, [facility] #[id number], [id number], 182, cm, 12/10/2020 1222, Height, 115.8, kg, 22, Weight Start Date: 01/25/21 Status: Ordered furosemide 20 mg oral tablet See Instructions, # 90 tablet(s), Refill #: 3 Total Refills: 3, TAKE 1 TABLET BY MOUTH DAILY, [facility] #[id number] Start Date: 08/30/20 Status: Ordered metoprolol tartrate 50 mg oral tablet 50 mg, 1 tablet(s), Oral, bid, 180 tablet(s), Tablet(s), 0 Start Date: 11/08/20 Status: Ordered MiraLax oral powder for reconstitution 1 packet(s), Oral, daily, PRN, REC Powder, 0, constipation Start Date: 08/20/20 Status: Ordered Multivitamin oral tablet 1 tablet(s), Oral, daily, 30 tablet(s), Tablet(s), 0 Start Date: 05/23/20 Status: Ordered warfarin 2 mg oral tablet 5 mg, 2.5 tablet(s), Oral, SuTuWThSa, 30 tablet(s), Tablet(s), 0 Start Date: 11/22/20 Status: Ordered warfarin 2 mg oral tablet 4 mg, 2 tablet(s), Oral, MF, 30 tablet(s), Tablet(s), 0 Start Date: 03/21/21 Status: Ordered Problem List Condition Effective Dates Status Health Status Inform ant Chronic diastolic congestive heart failure(Confirmed) Active CKD (chronic kidney disease) , stage III(Confirmed) Active CAD (coronary artery disease)(Confirmed) Active Gall stone(Confirmed) Active Gout(Confirmed) Active S/P prostatectomy(Confirmed) Active Large hiatal hernia(Confirmed) Active S/P CABG x 1(Confirmed) Active History of endocarditis(Confirmed) Active History of prostate cancer(Confirmed) Active S/P mitral valve repair(Confirmed) Active Hyperlipidemia(Confirmed) Active Hypertension(Confirmed) Active Trouble in sleeping(Confirmed) Active Medication monitoring encounter(Confirmed) Active Persistent atrial fibrillation(Confirmed) Active Proteinuria(Confirmed) Active Elevated TSH(Confirmed) Active Diagnosis Diagnosis Type Effective Dates Health Status Clinical Service Informant History of prostate cancer 05/23/21 Non-Specified Hypertension 05/23/21 Non-Specified History of prostate cancer 05/23/21 Non-Specified CKD (chronic kidney disease), stage III 05/23/21 Non-Specified Procedures Procedure Date Related Diagnosis Body Site Status Biopsy of prostate Comple mary Cardiac catheterization C ompleted cardiac stents 1 Complete d Prostatectomy Completed 2018 Results Laboratory List Name Date PSA Total 05/23/21 Urinalysis w/ Reflex to Microscopic 05/23 Urine Microscopic 05/23/21 Most recent to oldest [Reference Range]: 1 UA Blood [Negative] Negative (05/23/21 10:51 AM) UA WBC [<3 /hpf] <3 /hpf (05/23/21 10:51 AM) UA RBC [<3 /hpf] <3 /hpf (05/23/21 10:51 AM) Hyaline Cast [None seen /lpf] Occasional /lpf *(A)* (05/23/21 10:51 AM) UA Bacteria [None seen /hpf] Rare /hpf *(A)* (05/23/21 10:51 AM) UA Bilirubin [Negative] Negative (05/23/21 10:51 AM) UA Clarity [Clear] Clear (05/23/21 10:51 AM) UA Color [Straw] Yellow (05/23/21 10:51 AM) UA Glucose (Qual) [Negative] Negative (05/23/21 10:51 AM) UA Ketones [Negative] Negative (05/23/21 10:51 AM) UA Leukocyte Esterase [Negative] Negativ e (05/23/21 10:51 AM) UA Mucus [None seen /lpf] Trace /lpf *(A)* (05/23/21 10:51 AM) UA Nitrite [Negative] Negative (05/23/21 10:51 AM) PSA [<=3.9 ng/mL] 0.1 ng/mL (05/23/21 10:51 AM) UA Specific [place] [1.005-1.030] 1.023 (05/23/21 10:51 AM) UA pH [5.0-8.0] 6.5 (05/23/21 10:51 AM) UA Protein (Qual) [Negative] 3+ *(A)* (05/23/21 10:51 AM) UA Urobilinogen [Negative] Negative (05/23/21 10:51 AM) Social History Social History Type Response Alcohol Never alcohol user Substance Abuse Never drug user Smoking Status Never smoker;Never; Tobacco Cessation Counseling Requested N/A entered on: 05/23/21 Sex Male Medical Equipment Implanted Date:07/11/20Target Site:Unknown Description Quantity MRI Company Model STL-SCREW SELF LOCKING 3.5MM X 18MM 16 [facility] Unknown JASE:No Information Assigning Authority: FDA STL-PLATE LOW PROFILE V 4 HOLE 1 [facility] Unknown JASE:No Information Assigning Authority: FDA STL-PLATE LOW PROFILE H 6 HOLE 1 [facility] Unknown JASE:No Information Assigning Authority: FDA STL-PLATE LOW PROFILE O 6 HOLE 1 [facility] Unknown JASE:No Information Assigning Authority: FDA STL-RING PHYSIO II MITRAL ANNULOPLASTY 32MM 1 MR [employer] Unknown JASE:{01}[id number] Assigning Author ity:FDA STL-CLIP ATRI FLEX DEVICE [...]
--- OUTSIDE RECORDS SUMMARY | 2024-04-20 01:04 | XMS_ITS | Continuity of Care Document ---
Author Organization [facility] Address [address] [id number] Care Team Providers Care Prototype Sewer Name Role Phone Courtney Prado Primary Care Physician Encounter [facility] Financial Number [id number] Date(s): 10/28/23 - 10/28/23 [facility] [address] [facility] [address] [place], [place] [id number] [place] Encounter Diagnosis Ascending aorta dilation(Discharge Diagnosis) - 10/28/23 CAD (coronary artery disease)(Discharge Diagnosis) - 10/28/23 S/P CABG x 1(Discharge Diagnosis) - 10/28/23 S/P mitral valve repair(Discharge Diagnosis) - 10/28/23 Paroxysmal A-fib(Discharge Diagnosis) - 10/28/23 Discharge Disposition: Home or Self Care Attending Physician: Jose Martin Lomas M.D. Allergies, Adverse Reactions, Alerts No Known Allergies Assessment and Plan Future Appointments Appointment Date:11/30/2023 11:50:00 AM Scheduled Provider:Jeromy Perez MD Location:[facility] Appointment Type:USSL Established Patient 20mins Appointment Date:03/24/2024 02:30:00 PM Scheduled Provider:Courtney Prado MD Location:[facility] Appointment Type:CIMEdel CPE Complete Physical Exam Appointment Date:09/12/2024 10:30:00 AM Scheduled Provider:Kemi Daley MD Location:[facility] Appointment Type:[facility] EP Established Patient Appointment Date:10/10/2024 10:30:00 AM Scheduled Provider: Location:[facility] Cardiology Appointment Type:Echocardiogram Complete Study Appointment Date:10/10/2024 11:30:00 AM Scheduled Provider:Jose Martin Lomas M.D. Location:[facility] Appointment Type:CCC EP Established Patient Cesilia Immunizations Given and Recorded Vaccine Date Status Refusal Reason influenza virus vaccine, inactivated 02/16/23 Give n influenza virus vaccine, live, trivalent 05/09/21 Recorded SARS-CoV-2 mRNA (5y-11y) vaccine 05/09/21 Recorded SARS-CoV-2 (COVID-19) mRNA BNT-162b2 vax 1 07/28/20 Recorded SARS-CoV-2 (COVID-19) mRNA BNT-162b2 vax 2 07/03/20 Recorded 1Result Comment: [place] 2Result Comment: [place] Medications allopurinol 100 mg oral tablet 100 mg, 1 tablet(s), Oral, bid, 180 tablet(s), 2, 2, Route to Pharmacy Electronically, [facility] #[id number], [id number], 183, cm, 02/16/23 13:04:00 CDT, Height, 110.5, kg, 02/16/23 13:04:00 CDT, Weight Start Date: 05/15/23 Stop Date: 02/09/24 Status: Ordered amLODIPine 10 mg oral tablet See Instructions, 90 tablet(s), 1, TAKE 1 TABLET BY MOUTH EVERY DAY, Route to Pharmacy Electronically, [facility] #[id number], [id number], Instructions Replace RequiredDetails, 183, cm, 09/07/23 11:29:00 CDT, Height, 109.3, kg, 09/07/23 11:29:00 CDT, Weight Start Date: 09/11/23 Status: Ordered Arexvy preservative-free intramuscular injection 60 mcg, 0.5 mL, IntraMuscular, Once, 0.5 mL, 0, 0, Pharmacy to administer, Route to Pharmacy Electronically, [facility] #[id number], [id number], 183, cm, 09/07/23 11:29:00 CDT, Height, 109.3, kg, 09/07/23 11:29:00 CDT, Weight Start Date: 09/07/23 Status: Ordered aspirin 81 mg oral enteric coated tablet 81 mg, 1 tablet(s), Oral, daily, Tab EC, 0 Start Date: 07/05/20 Status: Ordered atorvastatin 80 mg oral tablet 1 tablet(s), Oral, daily, 90 tablet(s), 3, Route to Pharmacy Electronically, [facility] #[id number], [id number], 183, cm, 02/16/23 13:04:00 CDT, Height, 110.5, kg, 02/16/23 13:04:00 CDT, Weight Start Date: 07/13/23 Status: Ordered cloNIDine 0.1 mg oral tablet 1 tablet(s), Oral, bid, 180 tablet(s), 2, 2, Route to Pharmacy Electronically, [facility]#[id number], [id number], 183, cm, 02/16/23 13:04:00 CDT, Height, 110.5, kg, 02/16/23 13:04:00 CDT, Weight Start Date: 08/06/23 Stop Date: 05/02/24 Status: Ordered ezetimibe 10 mg oral tablet 1 tablet(s), Oral, daily, 90 tablet(s), 0, Route to Pharmacy Electronically, [facility] #[id number], [id number], 183, cm, 09/07/23 11:29:00 CDT, Height, 109.3, kg, 09/07/23 11:29:00 CDT, Weight Start Date: 10/09/23 Status: Ordered Gemtesa 75 mg oral tablet 75 mg, 1 tablet(s), Oral, daily, 30 tablet(s), 3, 3, Route to Pharmacy Electronically, [facility] #[id number], [id number], 183, cm, 02/16/23 13:04:00 CDT, Height, 110.5, kg, 02/16/23 13:04:00 CDT, Weight Start Date: 07/20/23 Stop Date: 11/17/23 Status: Ordered levothyroxine 50 mcg (0.05 mg) oral tablet 50 mcg, 1 tablet(s), Oral, daily before breakfast, 90 tablet(s), Tablet(s), 3, 3, [id number], [id number], 183, cm, 09/01/2022 1142, Height, 119, kg, 09/01/2022 1142, Weight Start Date: 11/18/22 Status: Ordered Metoprolol Tartrate 50 mg oral tablet 1 tablet(s), Oral, bid, 180 tablet(s), 2, Route to Pharmacy Electronically, [facility] #[id number], [id number], 182, cm, 11/24/22 13:26:00 CDT, Height, 106, kg, 11/23/22 12:54:00 CDT, Weight Start Date: 12/24/22 Status: Ordered pantoprazole 40 mg oral delayed release tablet 40 mg, 1 tablet(s), Oral, bid before meals, 180 tablet(s), Tab EC, 0, 0, Route to Pharmacy Electronically, [facility] #[id number], [id number], 182, cm, 11/24/2022 1326, Height, 106, kg, 11/23/2022 1254, Weight Start Date: 11/25/22 Stop Date: 02/23/23 Status: Ordered solifenacin 5 mg oral tablet 5 mg, 1 tablet(s), Oral, daily, 90 tablet(s), Tablet(s), 2, 2, Route to Pharmacy Electronically, [facility] #[id number], [id number], 183, cm, 02/16/23 13:04:00 CDT, Height, 110.5, kg, 02/16/23 13:04:00 CDT, Weight Start Date: 08/12/23 Stop Date: 05/08/24 Status: Ordered sucralfate 1 g/10 mL oral suspension 1 gm, 10 mL, Oral, qid, 1,200 mL, Susp, 0, 0, Route to Pharmacy Electronically, [facility] #[id number], [id number], 182, cm, 11/24/2022 1326, Height, 106, kg, [...] Active PAF (paroxysmal atrial fibrillation) Confirmed Active Paroxysmal A-fib Confirmed Active Medication monitoring encounter Confirmed Active [...] Most recent to oldest [Reference Range]: 1 Peripheral Pulse Rate [60-100 bpm] 54 bp m *L* (10/28/23 9:32 AM) Blood Pressure [89-139/60-90 mm Hg] 128/ 76mm Hg (10/28/23 9:32 AM) Height 182 cm (10/28/23 9:32 AM) Weight 105.2 kg (10/28/23 9:32 AM) Social History Social History Type Response [...] Safety Implantable Status Assigning Authority Unknown Unknown [id number] Unknown 03/04/23 Unknown Unknown Active Unkn own Procedure Provider Procedure Date Device Type Site Mitral Valve Annuloplasty Unknown 07/11/20 Unknown Unknown Device Identifier Serial Number Lot or Batch Number Manufacturing Date Expiration Date Distinct Identification Code MRI Safety Implantable Status Assigning Authority [id number] Unknown Unknown 03/13/24 Unknown MR Condrianna onal Active GS1 Goals Prevent Readmission Through [...] Status:Met Progression:Met Note * [facility] Property Analyst: PERFORM Event Display: ROI_Correspondence Authored Date: [id number] * Event Display: ROI_Correspondence * Event Display: ROI_Correspondence Authored Date: [id number] Patient Care team information Care Team Personnel Name: Jada Reynaga MD Position: Physician - Cardiology Member Role: Specialist Physician Address: Address: [address] [place] [address] [place] [address] [place] Name: Nancy Suresh Kiln Car Repairer Position: Population Health Coordinator Member Role: Population Health Coordinator Name: Khoi Hendrickson Role: Urologist Name: Kenia Gregory M.D. Position: Physician - Endocrine Member Role: Corporate Wellness Coordinator Address: Address: [address] [facility] [address] [place], [place] [phone] [place] Name: Vlad Varner MD Position: Physician - Electrophysiology Member Role: Specialist Physician Address: Address: [address] [place] [address] [place] Name: Jeromy Perez MD Position: Physician - Urology Member Role: Urologist Address: Address: [address] [place] [address] [place] Name: Gab Marquez M.D. Position: Physician - Infectious Disease Member Role: Infectious Disease Address: Address: [address] [facility] [address] [place] [address] [place] Name: Sheron Lamb BUSINESS COMPUTERS TEACHER II Position: Population Health Coordinator Member Role: Population Health Coordinator Name: Yonas Clements MD Member Role: Specialist Physician Name: Mark Sesay M.D. Position: Physician - Cardiothoracic Surgery Member Role: Specialist Physician Address: Address: [address] [facility] [address] [place], [place] [address]- Name: Courtney Prado MD Position: Physician - Internal Medicine Member Role: Primary Care Physician Address: Address: [address] [facility] [address] [place] [address] [place] Name: Fritz Oreilly MD Position: Physician - Infectious Disease Member Role: Specialist Physician Address: Address: [address] [facility] [address] [place], [place] [phone] [place] Name: Jose Martin Lomas M.D. Position: Physician - Cardiology Member Role: Specialist Physician Address: Address: [facility] [address] [facility] [address] [place] [address] [place] Name: Macy Ansari RN Position: AMB ONC Nurse Navigator Member Role: Nurse Navigator Name: Jose Martin Lomas M.D. Position: Physician - Cardiology Med Service: It Coordinator Prototype Sewer Role: Attending Physician Address: Address: [facility] [address] [place] [address] [place] Care Team Related Persons Name: JL BROWER Name: ALLAN VALDES Name: FREDA REYES
--- OUTSIDE RECORDS SUMMARY | 2024-04-20 01:04 | XMS_ITS | Continuity of Care Document ---
Author Organization [facility] Address [address] [place] [phone] Care Team Providers Care Lawn Sprinkler Installer Name Role Phone Emmanuel Broussard Primary Care Physician Kemi Daley Unavailable Vlad Varner Unavailable Jose Martin Lomas Unavailable Mark Sesay Unavailable Fritz Oreilly Unavailable Jada Reynaga Unavailable Yonas Clements Unavailable Encounter [facility] Financial Number [id number] Date(s): 12/12/21 - 12/12/[address] [phone] Discharge Disposition: Home or Self Care Attending Physician: Emmanuel Broussard MD Referring Physician: Emmanuel Broussard MD Allergies, Adverse Reactions, Alerts No Known Allergies Assessment and Plan Future Appointments Appointment Date:01/14/2022 10:15:00 AM Scheduled Provider:Kemi Daley MD [facility] Appointment Type:EA EP Established Patient Appointment Date:04/22/2022 10:15:00 AM Scheduled Provider:Vlad Varner MD Location:[facility] Appointment Type:SLES EP Established Patient Appointment Date:06/09/2022 01:30:00 PM Scheduled Provider:Emmanuel Broussard MD Location:[facility] Appointment Type:CON EP Established Patient Appointment Date:09/01/2022 11:45:00 AM Scheduled Provider:Jose Martin Lomas M.D. Location:[facility] Appointment Type:CCC EP Established Patient Rinder Immunizations Given and Recorded Vaccine Date Status Refusal Reason influenza virus vaccine, live, trivalent 05/09/21 Recorded SARS-CoV-2 mRNA (5y-11y) vaccine 05/09/21 Recorded SARS-CoV-2 (COVID-19) mRNA BNT-162b2 vax 1 07/28/20 Recorded SARS-CoV-2 (COVID-19) mRNA BNT-162b2 vax 2 07/03/20 Recorded 1Result Comment: [place] 2Result Comment: [place] Medications allopurinol 100 mg oral tablet 200 mg, 2 tablet(s), Oral, daily, 180 tablet(s), Tablet(s), 3, 3, Route to Pharmacy Electronically,[facility] #[id number], [id number], 182.88, cm, 05/23/2021 0950, Height, 119, kg, 05/23/2021 0950, Weight Start Date: 05/23/21 Stop Date: 05/18/22 Status: Ordered amLODIPine 10 mg oral tablet 10 mg, 1 tablet(s), Oral, daily, 90 tablet(s), Tablet(s), 3, 3, Route to Pharmacy Electronically, [facility] #[id number], [id number], 182.88, cm, 05/23/2021 0950, Height, 119, kg, 05/23/2021 0950, Weight Start Date: 05/23/21 Status: Ordered aspirin 81 mg oral enteric coated tablet 81 mg, 1 tablet(s), Oral, daily, Tab EC, 0 Start Date: 07/05/20 Status: Ordered atorvastatin 80 mg oral tablet 1 tablet(s), Oral, daily, 90 tablet(s), 0, Route to Pharmacy Electronically, [facility] #[id number], [id number], 182, cm, 07/05/2021 0928, Height, 120.2, kg, 07/05/2021 0928, Weight Start Date: 10/25/21 Status: Ordered ezetimibe 10 mg oral tablet 1 tablet(s), Oral, daily, 30 tablet(s), 2, Route to Pharmacy Electronically, [facility] #[id number], [id number], 182, cm, 07/05/2021 0928, Height, 120.2, kg, 07/05/2021 0928, Weight Start Date: 10/30/21 Status: Ordered levothyroxine 50 mcg (0.05 mg) oral tablet 50 mcg, 1 tablet(s), Oral, daily before breakfast, 90 tablet(s), Tablet(s), 3, 3, Route to PharmacyElectronically, [facility] #[id number], [id number], 182, cm, 12/05/2021 1020, Height, 114, kg, 12/05/2021 1022, Weight Start Date: 12/10/21 Status: Ordered Lupron mg, 0 Start Date: 12/05/21 Status: Ordered metoprolol tartrate 50 mg oral [...] Status Health Status Inform ant Anemia(Confirmed) Active Ascending aorta dilation(Confirmed) Active CKD (chronic kidney disease) , stage III(Confirmed) Active CAD (coronary artery disease)(Confirmed) Active Gall stone(Confirmed) Active Gout(Confirmed) Active S/P prostatectomy(Confirmed) Active Large hiatal hernia(Confirmed) Active S/P CABG x 1(Confirmed) Active History of endocarditis(Confirmed) Active S/P mitral valve repair(Confirmed) Active Hyperlipidemia(Confirmed) Active Hypertension(Confirmed) Active Hypothyroidism(Confirmed) Active Trouble in sleeping(Confirmed) Active Prostate cancer(Confirmed) Active Medication monitoring encounter(Confirmed) Active Persistent atrial fibrillation(Confirmed) Active Proteinuria(Confirmed) Active Elevated TSH(Confirmed) Active Diagnosis Diagnosis Type Effective Dates Health Status Clini saray Service Informant Anemia 12/12/21 Non-Specified Anemia 12/12/21 Non-Specified Anemia 12/12/21 Non-Specified Anemia 12/12/21 Non-Specified Anemia 12/12/21 Non-Specified Anemia 12/12/21 Non-Specified Procedures Procedure Date Related Diagnosis Body Site Status Biopsy of prostate Comple mary Cardiac catheterization C ompleted cardiac stents 1 Complete d Prostatectomy Completed 2018 Results Laboratory List Name Date Ferritin 12/12/21 Folate Level (Folic Acid) 12/12/21 Haptoglobin. 12/12/21 Iron Profile 12/12/21 Reticulocyte Count Automated (Retic Coun t Automated) 12/12/21 Vitamin B12 Level 12/12/21 Most recent to oldest [Reference Range]: 1 Direct TIBC [261-462 ug/dL] 328 ug/dL (12/12/21 1:10 PM) Iron [45-160 ug/dL] 104 ug/dL (12/12/21 1:10 PM) Ferritin [18-464 ng/mL] 208 ng/mL (12/12/21 1:10 PM) Haptoglobin [30-200 mg/dL] 298 mg/dL *H* (12/12/21 1:10 PM) Vitamin B12 689 pg/mL (12/12/21 1:10 PM) Absolute Retic Count [0.019-0.140 M/uL] 0.060 M/uL (12/12/21 1:10 PM) Reticulocyte Count [0.4-2.2 %] 1.5 % (12/12/21 1:10 PM) Immature Retic Fraction [0.0-14.0 %] 13. 2 % (12/12/21 1:10 PM) Iron Saturation [20-45 %] 32 % (12/12/21 1:10 PM) Vitamin B12 Comment See Footnote 1 (12/12/21 1:10 PM) Folate Comment See Footnote 2 (12/12/21 1:10 PM) Folate >20.0 ng/mL (12/12/21 1:10 PM) 1Result Comment: No established reference range for this age. 2Result Comment: No established reference range for this age. Social History Social History Type Response Alcohol [...] Safety Implantable Status Assigning Authority Unknown Unknown [id number] Unknown 03/04/23 Unknown Unknown Active Unkn own Procedure Provider Procedure Date Device Type Site Mitral Valve Annuloplasty Unknown 07/11/20 Unknown Unknown Device Identifier Serial Number Lot or Batch Number Manufacturing Date Expiration Date Distinct Identification Code MRI Safety Implantable Status Assigning Authority [id number] Unknown Unknown 03/13/24 Unknown MR Candace stephenson [...] Personnel Name: Emmanuel Broussard MD Address: Address: [address] [place] [address] [address] [place] [address] Name: Kemi Daley MD Address: Address: [address] [place] [phone] [place] Name: Vlad Varner MD Address: Address: [address] [place] [address] [address] [place] [address] [place] Name: Jose Martin Lomas M.D. Address: Address: [facility] [address] [place] [address] Rd [address] [place] [address] [place] Name: Mark Sesay M.D. Address: Address: [address] [place] [address] [address] [place], [place] [address]- Name: Fritz Oreilly MD Address: Address: [address] [place] [address] Rd [address] [place], [place] [phone] [place] Name: Jada Reynaga MD Address: Address: [address] [place] [address] Rd [address] [place] [address] [place] Name: Yonas Clements MD Address: Address: [address] [place] [address] [address] [place] [address]
--- OUTSIDE RECORDS SUMMARY | 2024-04-20 01:04 | XMS_ITS | Continuity of Care Document ---
Author Organization [facility] Address [address] [place] [id number] Care Team Providers Care Court Bailiff Name Role Phone Courtney Prado Primary Care Physician Encounter [facility] Financial Number [id number] Date(s): 06/17/23 - 06/17/[address] [id number] Discharge Disposition: Home or Self Care Attending Physician: Jeromy Perez MD Admitting Physician: MICKI HSU Referring Physician: MICKI HSU Allergies, Adverse Reactions, Alerts No Known Allergies Assessment and Plan Future Appointments Appointment Date:07/06/2023 10:00:00 AM Scheduled Provider:Jeromy Perez MD Location:[facility] Appointment Type:[facility] Cysto 20mins Appointment Date:08/07/2023 12:30:00 PM Scheduled Provider:Jose Martin Lomas M.D. Location:[facility] Established Patient Cesilia Appointment Date:09/07/2023 10:00:00 AM Scheduled Provider:Kemi Daley MD Location:[facility] Appointment Type:[facility] EP Established Patient Appointment Date:09/07/2023 11:15:00 AM Scheduled [...] tablet(s), 2, 2, Route to Pharmacy Electronically, [facility] #[id number], [id number], 183, cm, 02/16/23 13:04:00 CDT, Height, 110.5, kg, 02/16/23 13:04:00 CDT, Weight Start Date: 05/15/23 Stop Date: 02/09/24 Status: Ordered amLODIPine 10 mg oral tablet 10 mg, 1 tablet(s), Oral, daily, 90 tablet(s), Tablet(s), 3, 3, Route to Pharmacy Electronically, [facility] #[id number], [id number], 183, cm, 07/01/2022 1255, Height, 117, kg, [...] mg oral tablet 1 tablet(s), Oral, bid, 60 tablet(s), 0, 0, Route to Pharmacy Electronically, [facility] #[id number], [id number], 183, cm, 02/16/23 13:04:00 CDT, Height, 110.5, kg, 02/16/23 13:04:00 CDT, Weight Start Date: 06/15/23 Status: Ordered ezetimibe 10 mg oral tablet 1 tablet(s), Oral, daily, 90 tablet(s), 3, 3, [id number], [id number], 183, cm, 09/01/2022 1142, Height, 119, kg, 09/01/2022 1142, Weight Start Date: 10/14/22 Stop Date: 10/09/23 Status: Ordered gabapentin 100 mg oral capsule 100 mg, 1 capsule(s), Oral, tid, 90 capsule(s), Capsule(s), 0, 0, Route to Pharmacy Electronically,[facility][id number], [id number], 183, cm, 02/16/23 13:04:00 CDT, Height, 110.5, kg, 02/16/23 13:04:00 CDT, Weight Start Date: 03/23/23 Stop Date: 04/22/23 Status: Ordered levothyroxine 50 mcg (0.05 mg) oral tablet 50 mcg, 1 tablet(s), Oral, daily before breakfast, 90 tablet(s), Tablet(s), 3, 3, Route to PharmacyElectronically, [facility] #[id number], [id number], 183, cm, 09/01/2022 1142, Height, 119, kg, [...] 180 tablet(s), 2, Route to Pharmacy Electronically, [facility] #[id number], [id number], 182, cm, 11/24/22 13:26:00 CDT, Height, 106, kg, 11/23/22 12:54:00 CDT, Weight Start Date: 12/24/22 Status: Ordered MiraLax oral powder for reconstitution 1 packet(s), Oral, daily, PRN, REC Powder, 0, constipation Start Date: 08/20/20 Status: Ordered pantoprazole 40 mg oral delayed release tablet 40 mg, 1 tablet(s), Oral, bid before meals, 180 tablet(s), Tab EC, 0, 0, Route to Pharmacy Electronically, [facility] #[id number], [id number], 182, cm, 11/24/2022 1326, Height, 106, kg, 11/23/2022 1254, Weight Start Date: 11/25/22 Stop Date: 02/23/23 Status: Ordered sucralfate 1 g/10 mL oral suspension 1 gm, 10 mL, Oral, qid, 1,200 mL, Susp, 0, 0, Route to Pharmacy Electronically, [facility] #[id number], [id number], 182, cm, 11/24/2022 1326, Height, 106, kg, 11/23/2022 1254, Weight Start Date: 11/25/22 Stop Date: 12/25/22 Status: Ordered Tylenol 500 mg, Oral, [id number], PRN, 0, pain, mild Start Date: 11/23/22 [...] 2 Complete d Prostatectomy Completed 2018 Results Radiology Reports * Exam Date Time Procedure Performing Provider Status 06/17/23 3:[address] UROGRAM 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 The radiation exposure as measured by the dose length product (DLP) is 1455 mGy-cm. CT dose lowering technique was utilized for this exam. FINDINGS: Noncontrast enhanced images reveal no renal calculi. There are multiple cystic structures on both kidneys left greater than right. No bladder stones identified. There appear to be surgical clips in the prostate bed. The bladder is small volume. There is a rounded area that is slightly more dense and subtle on the noncontrast enhanced images in the upper pole of the right kidney which is hypodense on the contrast enhanced images. Hounsfield units measure 46 precontrast and 51 postcontrast suggesting this is a hyperdense cyst there are multiple nonenhancing low attenuating structures on the right kidney the largest of which is in the lower pole and is fluid attenuating and measures 5.8 cm in diameter. There are multiple cystic structures on the left kidney the largest of which is in the lower pole and measures 9.6 cm in diameter. Off the lower pole of the left kidney there is an exophytic more dense structure which is 44 Hounsfield units precontrast and 42 Hounsfield units postcontrast suggesting hyperdense cyst. Collecting systems opacify normally. The ureters are not dilated. There is partial visualization of a normal caliber right ureter. There is an extrarenal pelvis on the left side and the contrast layers within the extrarenal pelvis. There is no contrast within the ureter. There is no contrast in the bladder. No free fluid in the pelvis. There are postoperative changes from previous left inguinal hernia repair. Liver is unremarkable. The gallbladder is relatively contracted and there are multiple calcified stones present. There may be some gallbladder wall thickening. Biliary ducts are nondilated. Pancreas, spleen, adrenal glands are unremarkable. The bowel is nondilated. The appendix appears normal. The sigmoid colon is redundant. No bowel wall thickening evident. Moderate to severe multilevel lumbar degenerative disc disease noted. No suspicious osseous lesions. There is a large paraesophageal hiatal hernia. There is a small left pleural effusion and compressive atelectasis in the left lung base. Subpleural fine atelectatic or fibrotic changes noted in the lung bases. There is calcified granuloma in the right lower lobe. IMPRESSION: Multiple bilateral left greater than right renal cysts some of which represent hyperdense cysts as outlined above. No hydronephrosis or hydroureter. No findings to suggest an etiology for the microscopic hematuria. Cholelithiasis with a relatively contracted gallbladder but with possible gallbladder wall thickening. Correlate with clinical symptoms. An ultrasound could better characterize if clinically warranted. Small left effusion and large paraesophageal hiatal hernia. . Dictating Physician: Jeromy Rand MD Releasing Physician: Jeromy Rand MD Signature Electronically Authorized Authorized Date/Time: 17-JUN-2023 04:14 pm Social History Social History Type Response [...] Safety Implantable Status Assigning Authority Unknown Unknown [id number] Unknown 03/04/23 Unknown Unknown Active Unkn own Procedure Provider Procedure Date Device Type Site Mitral Valve Annuloplasty Unknown 07/11/20 Unknown Unknown Device Identifier Serial Number Lot or Batch Number Manufacturing Date Expiration Date Distinct Identification Code MRI Safety Implantable Status Assigning Authority [id number] Unknown Unknown 03/13/24 Unknown MR Candace stephenson [...] Cardiology Member Role: Specialist Physician Address: Address: [address] [place] [address] [address] [place] [address] [place] Name: Nancy Suresh Specialist Position: Population Health Coordinator Member Role: Population Health Coordinator Name: Khoi Hendrickson Member Role: Urologist Name: Kenia Gregory M.D. Position: Physician - Endocrine Member Role: Past[employer] Address: Address: [address] [place], [place] [id number] [place] Name: Vlad Varner MD Position: Physician - Electrophysiology Member Role: Specialist Physician Address: Address: [address] [place] [address] [place] Name: Gab Marquez M.D. Position: Physician - Infectious Disease Member Role: Infectious Disease Address: Address: [address] [place] [address] [place] Name: Sheron Lamb SPECIALIST II Position: Population Health Coordinator Member Role: Population Health Coordinator Name: Yonas Clements MD Member Role: Specialist Physician Address: Address: [address] [place] [address] [place] Name: Mark Sesay M.D. Position: Physician - Cardiothoracic Surgery Member Role: Specialist Physician Address: Address: [address] [place], [place] [address]- Name: Courtney Prado MD Position: Physician - Internal Medicine Member Role: Primary Care Physician Address: Address: [address] [place] [address] Name: Fritz Oreilly MD Position: Physician - Infectious Disease Member Role: Specialist Physician Address: Address: [address] [place], [place] [id number] [place] Name: Jose Martin Lomas M.D. Position: Physician - Cardiology Member Role: Specialist Physician Address: Address: [facility] [address] [place] [address] Name: Macy Ansari RN Position: AMB ONC Nurse Navigator Member Role: Nurse Navigator Care Team Related Persons Name: LJ BROWER Name: ALLAN VALDES Name: FREDA REYES
--- OUTSIDE RECORDS SUMMARY | 2024-04-20 01:04 | XMS_ITS | Continuity of Care Document ---
Author Organization [facility] Address [address] [place] [address] [address] [place], [place] [id number] Care Team Providers Care Rubber Turner Name Role Phone Courtney Prado Primary Care Physician [phone] Encounter [facility] Financial Number [id number] Date(s): 10/28/23 - 10/28/23 [facility] [address] [place], [place] [id number] Discharge Disposition: Home or Self Care Allergies, Adverse Reactions, Alerts No Known Allergies Assessment and Plan Future Appointments Appointment Date:11/30/2023 11:50:00 AM Scheduled Provider:Jeromy Perez MD Location:[facility] Appointment Type:SL Established Patient 20mins Appointment Date:03/24/2024 02:30:00 PM Scheduled Provider:Courtney Prado MD Location:[facility] Appointment Type:CIMR CPE Complete Physical Exam Appointment Date:09/12/2024 10:30:00 AM Scheduled Provider:Kemi Daley MD Location:[facility] Appointment Type:[facility] EP Established Patient Appointment Date:10/10/2024 10:30:00 AM Scheduled Provider: Location:[facility] Cardiology Appointment Type:Echocardiogram Complete Study Appointment Date:10/10/2024 11:30:00 AM Scheduled Provider:Jose Martin Lomas M.D. Location:[facility] Appointment Type:[facility] EP Established Patient Cesilia Immunizations Given and Recorded Vaccine Date Status Refusal Reason influenza virus vaccine, inactivated 02/16/23 Give n influenza virus vaccine, live, trivalent 05/09/21 Recorded SARS-CoV-2 mRNA (5y-11y) vaccine 05/09/21 Recorded SARS-CoV-2 (COVID-19) mRNA BNT-162b2 vax 1 07/28/20 Recorded SARS-CoV-2 (COVID-19) mRNA BNT-162b2 vax 2 07/03/20 Recorded 1Result Comment: [place] 2Result Comment: [place] Medications allopurinol 100 mg oral tablet 100 mg, 1 tablet(s), Oral, bid, 180 tablet(s), 2, 2, Route to Pharmacy Electronically, [facility] #[id number], [id number], 183, cm, 02/16/23 13:04:00 CDT, Height, 110.5, kg, 02/16/23 13:04:00 CDT, Weight Start Date: 05/15/23 Stop Date: 02/09/24 Status: Ordered amLODIPine 10 mg oral tablet See Instructions, 90 tablet(s), 1, TAKE 1 TABLET BY MOUTH EVERY DAY, Route to Pharmacy Electronically, [facility] #[id number], [id number], Instructions Replace RequiredDetails, 183, cm, 09/07/23 11:29:00 CDT, Height, 109.3, kg, 09/07/23 11:29:00 CDT, Weight Start Date: 09/11/23 Status: Ordered Arexvy preservative-free intramuscular injection 60 mcg, 0.5 mL, IntraMuscular, Once, 0.5 mL, 0, 0, Pharmacy to administer, Route to Pharmacy Electronically, [facility] #[id number], [id number], 183, cm, 09/07/23 11:29:00 CDT, Height, 109.3, kg, 09/07/23 11:29:00 CDT, Weight Start Date: 09/07/23 Status: Ordered aspirin 81 mg oral enteric coated tablet 81 mg, 1 tablet(s), Oral, daily, Tab EC, 0 Start Date: 07/05/20 Status: Ordered atorvastatin 80 mg oral tablet 1 tablet(s), Oral, daily, 90 tablet(s), 3, Route to Pharmacy Electronically, [id number], [id number], 183, cm, 02/16/23 13:04:00 CDT, Height, 110.5, kg, 02/16/23 13:04:00 CDT, Weight Start Date: 07/13/23 Status: Ordered cloNIDine 0.1 mg oral tablet 1 tablet(s), Oral, bid, 180 tablet(s), 2, 2, [id number], [id number], 183, cm, 02/16/23 13:04:00 CDT, Height, 110.5, kg, 02/16/23 13:04:00 CDT, Weight Start Date: 08/06/23 Stop Date: 05/02/24 Status: Ordered ezetimibe 10 mg oral tablet 1 tablet(s), Oral, daily, 90 tablet(s), 0, Route to Pharmacy Electronically, [facility][id number], [id number], 183, cm, 09/07/23 11:29:00 CDT, Height, 109.3, kg, 09/07/23 11:29:00 CDT, Weight Start Date: 10/09/23 Status: Ordered Gemtesa 75 mg oral tablet 75 mg, 1 tablet(s), Oral, daily, 30 tablet(s), 3, 3, Route to Pharmacy Electronically, [facility]25611, [id number], 183, cm, 02/16/23 13:04:00 CDT, Height, 110.5, kg, 02/16/23 13:04:00 CDT, Weight Start Date: 07/20/23 Stop Date: 11/17/23 Status: Ordered levothyroxine 50 mcg (0.05 mg) oral tablet 50 mcg, 1 tablet(s), Oral, daily before breakfast, 90 tablet(s), Tablet(s), 3, 3, Route to [facility]acy[facility]ronically, [id number], [id number], 183, cm, 09/01/2022 1142, Height, 119, kg, 09/01/2022 1142, Weight Start Date: 11/18/22 Status: Ordered Metoprolol Tartrate 50 mg oral tablet 1 tablet(s), Oral, bid, 180 tablet(s), 2, Route to Pharm[facility] Electronically, [id number], [id number], 182, cm, 11/24/22 13:26:00 CDT, Height, 106, kg, 11/23/22 12:54:00 CDT, Weight Start Date: 12/24/22 Status: Ordered pantoprazole 40 mg oral delayed release tablet 40 mg, 1 tablet(s), Oral, bid before meals, 180 tablet(s), Tab EC, 0, 0, [id number], [id number], 182, cm, 11/24/2022 1326, Height, 106, kg, 11/23/2022 1254, Weight Start Date: 11/25/22 Stop Date: 02/23/23 Status: Ordered solifenacin 5 mg oral tablet 5 mg, 1 tablet(s), Oral, daily, 90 tablet(s), Tablet(s), 2, 2, Route to Pharmacy Electronically, [facility][id number], [id number], 183, cm, 02/16/23 13:04:00 CDT, Height, 110.5, kg, 02/16/23 13:04:00 CDT, Weight Start Date: 08/12/23 Stop Date: 05/08/24 Status: Ordered sucralfate 1 g/10 mL oral suspension 1 gm, 10 mL, Oral, qid, 1,200 mL, Susp, 0, 0, Route to Pharmacy Electronically, [facility] #[id number], [id number], 182, cm, 11/24/2022 1326, Height, 106, kg, [...] Safety Implantable Status Assigning Authority Unknown Unknown [id number] Unknown 03/04/23 Unknown Unknown Active Unkn own Procedure Provider Procedure Date Device Type Site Mitral Valve Annuloplasty Unknown 07/11/20 Unknown Unknown Device Identifier Serial Number Lot or Batch Number Manufacturing Date Expiration Date Distinct Identification Code MRI Safety Implantable Status Assigning Authority [id number] Unknown Unknown 03/13/24 Unknown MR Maria onani [...] Status:Met Progression:Met Note * [facility] [employer] 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 Position: Physician - Endocrine Member Role: Laborer Laboratory Address: Address: [address] [place], [place] [id number] [place] Name: Vlad Varner MD Position: Physician - Electrophysiology Member Role: Specialist Physician Address: Address: [address] [place] [address] [place] Name: Jeromy Perez MD Position: Physician - Urology Member Role: Urologist Address: Address: [address] [place] [address] [place] Name: Gab Marquez M.D. Position: Physician - Infectious Disease Member Role: Infectious Disease Address: Address: [address] [place] [address] [place] Name: Sheron Lamb II Position: Population Health Coordinator Member Role: Population Health Coordinator Name: Yonas Clements MD Member Role: Specialist Physician Name: Mark Sesay M.D. Position: Physician - Cardiothoracic Surgery Member Role: Specialist Physician Address: Address: [address] [place], [place] [address]- Name: Courtney Prado MD Position: Physician - Internal Medicine Member Role: Primary Care Physician Address: Address: [address] Name: Fritz Oreilly MD Position: Physician - Infectious Disease Member Role: Specialist Physician Address: Address: [address] [place], [place] [id number] [place] Name: Jose Martin Lomas M.D. Position: Physician - Cardiology Member Role: Specialist Physician Address: Address: [facility] [address] [place] [address] [place] Name: Macy Ansari RN Position: AMB ONC Nurse Navigator Member Role: Nurse Navigator Care Team Related Persons Name: JL BROWER Name: ALLAN VALDES Name: FREDA REYES
--- OUTSIDE RECORDS SUMMARY | 2024-04-20 01:04 | XMS_ITS | Continuity of Care Document ---
Author Organization [facility] Address [address] [id number] Care Team Providers Care Service Order Dispatcher Chief Name Role Phone Courtney Prado Primary Care Physician Encounter [facility] Financial Number [id number] Date(s): 02/25/24 - 02/25/24 [facility] [address] [facility] [address] [place], [place] [id number] Encounter Diagnosis Hypertension(Discharge Diagnosis) - 02/25/24 CAD (coronary artery disease)(Discharge Diagnosis) - 02/25/24 Hyperlipidemia(Discharge Diagnosis) - 02/25/24 Systolic heart failure(Discharge Diagnosis) - 02/25/24 CKD stage 3a, GFR 45-59 ml/min(Discharge Diagnosis) - 02/25/24 S/P CABG x 1(Discharge Diagnosis) - 02/25/24 Discharge Disposition: Home or Self Care Attending Physician: Shereen Owens NP Allergies, Adverse Reactions, Alerts No Known Allergies Assessment and Plan Future Appointments Appointment Date:03/11/2024 10:30:00 AM Scheduled Provider: Location:[facility] Appointment Type:yyNM CARDIAC MPI MULT BRANDY INJ Appointment Date:03/11/2024 11:00:00 AM Scheduled Provider: Location:[facility] Appointment Type:yyNM CARDIAC SCAN 30 Appointment Date:03/11/2024 11:30:00 AM Scheduled Provider: Location:[facility] Appointment Type:yyNM LEXISCAN STRESS TEST Appointment Date:03/11/2024 12:30:00 PM Scheduled Provider: Location:[facility] Appointment Type:yyNM CARDIAC SCAN 30 Appointment Date:03/24/2024 02:30:00 PM Scheduled Provider:Courtney Prado MD Location:[facility] Appointment Type:[facility] CPE Complete Physical Exam Appointment Date:06/01/2024 11:00:00 AM Scheduled Provider:Jeromy Perez MD Location:[facility] Appointment Type:USSL Established Patient 20mins Appointment Date:09/12/2024 10:30:00 AM Scheduled Provider:Kemi Daley MD Location:[facility]S Appointment Type:[facility] EP Established Patient Appointment Date:10/10/2024 10:30:00 AM Scheduled Provider: Location:[facility] Cardiology Appointment Type:Echocardiogram Complete Study Appointment Date:10/10/2024 11:30:00 AM Scheduled Provider:Jose Martin Lomas M.D. Location:[facility] Appointment Type:[facility] EP Established Patient Rinder Immunizations Given and [...] tablet(s), 2, 2, Route to Pharmacy Electronically, [facility] #[id number], [id number], 183, cm, 02/16/23 13:04:00 CDT, Height, 110.5, kg, 02/16/23 13:04:00 CDT, Weight Start Date: 05/15/23 Stop Date: 02/09/24 Status: Ordered amLODIPine 10 mg oral tablet See Instructions, 90 tablet(s), 1, TAKE 1 TABLET BY MOUTH EVERY DAY, Route to Pharmacy Electronically, [facility] #[id number], [id number], Instructions Replace RequiredDetails, 183, cm, 09/07/23 11:29:00 CDT, Height, 109.3, kg, 09/07/23 11:29:00 CDT, Weight Start Date: 09/11/23 Status: Ordered Arexvy preservative-free intramuscular injection 60 mcg, 0.5 mL, IntraMuscular, Once, 0.5 mL, 0, 0, Pharmacy to administer, Route to Pharmacy Electronically, [facility] #[id number], [id number], 183, cm, 09/07/23 11:29:00 CDT, Height, 109.3, kg, 09/07/23 11:29:00 CDT, Weight Start Date: 09/07/23 Status: Ordered aspirin 81 mg oral enteric coated tablet 81 mg, 1 tablet(s), Oral, daily, Tab EC, 0 Start Date: 07/05/20 Status: Ordered atorvastatin 80 mg oral tablet 1 tablet(s), Oral, daily, 90 tablet(s), 3, Route to Pharmacy Electronically, [facility] #[id number], [id number], 183, cm, 02/16/23 13:04:00 CDT, Height, 110.5, kg, 02/16/23 13:04:00 CDT, Weight Start Date: 07/13/23 Status: Ordered cloNIDine 0.1 mg oral tablet 1 tablet(s), Oral, bid, 180 tablet(s), 2, 2, Route to Pharmacy Electronically, [facility]#[id number], [id number], 183, cm, 02/16/23 13:04:00 CDT, Height, 110.5, kg, 02/16/23 13:04:00 CDT, Weight Start Date: 08/06/23 Stop Date: 05/02/24 Status: Ordered Entresto 24 mg-26 mg oral tablet 0.5 tablet(s), Oral, bid, 30 tablet(s), Tablet(s), 11, 11, Route to Pharmacy Electronically, [facility] #[id number], [id number], 182, cm, 02/25/24 13:51:00 CDT, Height, 105, kg, 02/25/24 13:51:00 CDT, Weight Start Date: 02/25/24 Status: Ordered ezetimibe 10 mg oral tablet 1 tablet(s), Oral, daily, 90 tablet(s), 3, Route to Pharmacy Electronically, [facility] #[id number], [id number], 182, cm, 10/28/23 9:42:00 CDT, Height, 105.2, kg, 10/28/23 9:42:00 CDT, Weight Start Date: 01/07/24 Status: Ordered Gemtesa 75 mg oral tablet 75 mg, 1 tablet(s), Oral, daily, 30 tablet(s), 3, 3, Route to Pharmacy Electronically, [facility] #[id number], [id number], 182, cm, 10/28/23 9:42:00 CDT, Height, 105.2,kg, 10/28/23 9:42:00 CDT, Weight Start Date: 01/14/24 Stop Date: 05/13/24 Status: Ordered levothyroxine 50 mcg (0.05 mg) oral tablet 1 tablet(s), Oral, daily before breakfast, 90 tablet(s), 0, Route to Pharmacy Electronically, [facility] #[id number], [id number], 182, cm, 10/28/23 9:42:00 CDT, Height, 105.2, kg, 10/28/23 9:42:00 CDT, Weight Start Date: 12/15/23 Status: Ordered Metoprolol Tartrate 50 mg oral tablet 1 tablet(s), Oral, bid, 180 tablet(s), 3, Route to Pharmacy Electronically, [facility] #[id number], [id number], 182, cm, 10/28/23 9:42:00 CDT, Height, 105.2, kg, 10/28/23 9:42:00 CDT, Weight Start Date: 11/09/23 Status: Ordered minoxidil 2.5 mg oral tablet 1 tablet(s), Oral, bid, 180 tablet(s), 0, Route to Pharmacy Electronically, [facility] #[id number], [id number], 182, cm, 02/25/24 13:51:00 CDT, Height, 105, kg, 02/25/24 13:51:00 CDT, Weight Start Date: 02/25/24 Status: Ordered pantoprazole 40 mg oral delayed release tablet 40 mg, 1 tablet(s), Oral, bid before meals, 180 tablet(s), Tab EC, 0, 0, Route to Pharmacy Electronically, [facility] #[id number], [id number], 182, cm, 11/24/2022 1326, Height, 106, kg, 11/23/2022 1254, Weight Start Date: 11/25/22 Stop Date: 02/23/23 Status: Ordered sucralfate 1 g/10 mL oral suspension 1 gm, 10 mL, Oral, qid, 1,200 mL, Susp, 0, 0, Route to Pharmacy Electronically, [facility] #[id number], [id number], 182, cm, 11/24/2022 1326, Height, 106, kg, [...] Most recent to oldest [Reference Range]: 1 2 Peripheral Pulse Rate [60-100 bpm] 66 bp m (02/25/24 1:51 PM) Blood Pressure [89-139/60-90 mm Hg] 152/ 58mm Hg *H* (02/25/24 2:50 PM) 170/88mm Hg *H* (02/25/24 1:51 PM) Height 182 cm (02/25/24 1:51 PM) Weight 105 kg (02/25/24 1:51 PM) Social History Social History Type Response [...] Safety Implantable Status Assigning Authority Unknown Unknown [id number] Unknown 03/04/23 Unknown Unknown Active Unkn own Procedure Provider Procedure Date Device Type Site Mitral Valve Annuloplasty Unknown 07/11/20 Unknown Unknown Device Identifier Serial Number Lot or Batch Number Manufacturing Date Expiration Date Distinct Identification Code MRI Safety Implantable Status Assigning Authority [id number] Unknown Unknown 03/13/24 Unknown MR Candace stephenson [...] Status:Met Progression:Met Note * [facility] Operator: PERFORM Event Display: ROI_Correspondence Authored Date: [id number] * Event Display: ROI_Correspondence * Event Display: ROI_Correspondence Authored Date: [id number] Cardiology Outpatient Note * Shereen Owens ENVIRONMENTAL REMEDIATION ENGINEER: PERFORM Event Display: Cardiology Office/Clinic Note Authored Date: [id number] Patient Information Name:YOSEF BROWN Address: [address] [place] [phone] Sex:Male Date of :1945 Emergency Contact:FREDA REYES Location:[facility] Registration Date and Time:02/25/2024 13:49 CDT Primary Care Physician: Courtney Prado MD, Attending Physician: Shereen Owens ENVIRONMENTAL REMEDIATION ENGINEER, Chief Complaint ELEVATED BP/DIZZINESS History of Present Illness YOSEF BROWN??is a pleasant??78 year old??who with history of CAD, HLD, HTN, Prostate CA??presents with uncontrolled blood pressure x 1-2 weeks, worse at home, SBP 160-170's without correlate nor symptoms.? He presents today and Patient denies dizziness, lightheadedness, shortness of breath, palpitations, leg swelling, blurry vision, or TIA symptoms. No chest pain. Noted progression of weakness whileon Lupron that has now improved a bit. Symptoms are vague. Lisinopril??increased last week, PCP added Minoxidil today, with nephrology being Dr. Cuevas and will manage blood pressure??per family.? Notably ECHO with EF 38%, compared to last with EF 60%, moderate CAD on last cath, LDL??at goal.He is not sitting prior to checking blood pressure, does not??monitor salt or fluids. No recent illness or stress.?? Review of Systems ?Constitutional ? Fever?No.?? Weight Gain?No.?? Weight Loss?No.?? Fatigue?No.? Eyes ? Vision Change?No.? Respiratory ? Wheezing/Asthma?No.?? Snoring?No.?? Sleep Apnea?No?.?? Cough?No.?? Coughing up blood?No.?? Sputum?No.?? Emphysema?likely.?? Pulmonary Embolism?No.? Gastrointestinal ? Nausea?No.?? Diarrhea?No.?? Heart Burn?No.?? Ulcers?No.?? Blood in stool?No.?? Constipation?No. Swallowing problems?No ? ENT ? Diminished hearing?No.??.?? Congestion?No.?? Sinus problems?No. ? Musculoskeletal ? Neck pain?No. Gout?No.?? Arthritis?No.?? Back pain?No.?? Muscle pain?No.?? Rheumatoid arthritis?No.? Endocrine ?heat or cold intolerance??no ? Neurology ? Headache?No. Imbalance?No.?? Change in memory?No.?? Seizures?No.?? Stroke/TIA?No.? Hematology/Oncology ? Anemia/Blood disorder?No.?? Bruising?No.?? Bleeding?No.?? Clotting problems?No ? Psychiatry ? Anxiety?No.?? Depression?No.?? Problems with memory?No. Problems sleeping?No. ? Connective Tissue ?arthralgiasno ? Skin ? Rash?No.?? Skin itching?No. ? Incontinence?No.?? Painful Urination?No.?? Blood in Urine?No. Kidney problems?No. Vitals and Measurements Vital Signs Height: 182 cm Height Inches Conversion: 71.7 Weight: 105 kg Weight in Pounds (kg conversion): 231 Body Surface Area: 2.304 m2 Body Mass Index: 31.7 kg/m2 Systolic Blood Pressure:??152 mm Hg??High Systolic Blood Pressure:??170 mm Hg??High Diastolic Blood Pressure:??58 mm Hg??Low Diastolic Blood Pressure: 88 mm Hg Peripheral Pulse Rate: 66 bpm Oxygen Saturation: 97 % Physical Exam General Appearance: alert and oriented, in no acute distress. Pale? ENT: Neck: supple, no jugular venous distention, no mass, no lymphadenopathy.??Mucous membranes moist Chest: normal shape and expansion with respiration.?? Heart: normal rate, regular rhythm, no murmurs.?? Lungs: respiratory rate is normal, but breath sounds are clear bilaterally.?? Extremities: no clubbing, cyanosis or edema, peripheral pulses, 2+ intact bilateral DP/PT.?? Psych: appropriate for situation?? Assessment/Plan 1.??Hypertension -uncontrolled, asymptomatic,?? -ECHO EF 38%,? 2.??Systolic heart failure -cannot??fully exclude ischemia given CAD history -start Entresto given CKD Ordered: NM MPI SPECT MULT EFWALL MOT BRANDY per protocol(Lexiscan Stress MPI), systolic heart failure, 03/11/24, ROUTINE, Systolic CHF, Not Required, Future Order, Electronic, RADIOLOGY ?? 3.??CAD (coronary artery disease) -s/p CABG, stents -last [facility] without intervention with moderate disease -continue Atorvastatin and Zetia, Metoprolol ?? 4.??Hyperlipidemia -?:LDL??at goal? 5.??CKD stage 3a, GFR 45-59 ml/min -follows with Dr. Cuevas in [place], [place] -call placed to Dr. Cuevas to discuss Entresto ?? Orders: sacubitril-valsartan(Entresto 24 mg-26 mg oral tablet), 0.5 tablet(s), Oral, bid, 11 refills Yosef has asymptomatic hypertension??that is followed??closely by nephrology. Call placed to Dr. Cuevas -ok to??start ARNI??-?in place of [facility] given CKD, stress MPI, labs and recent testing reviewed. to ER with worsening chest pain, shortness of breath, chest pain, numbness, tingling, visual changes.?? Future Order Details NM MPI SPECT MULT EFWALL MOT BRANDY per protocol, systolic heart failure, 03/11/24, ROUTINE, SystolicCHF, Not Required, Future Order, Electronic, RADIOLOGY Patient Instructions Prolonged education on avoiding salt and processed foods, water to quench thirst, sitting for 5 minutes prior to??checking blood pressure.?? Follow Up as directed in November or otherwise per testing results. Problem List/Past Medical History Ongoing Anemia of [...] PERFORMED (2022)???Biopsy of prostate???Cardiac catheterization???cardiac stents???Prostatectomy Medications allopurinol 100 mg oral tablet, 100 mg= 1 tablet(s), Oral, bid, 2 refills amLODIPine 10 mg oral tablet, See Instructions Arexvy preservative-free intramuscular injection, 60 mcg= 0.5 mL, IntraMuscular, Once aspirin 81 mg oral enteric coated tablet, 81 mg= 1 tablet(s), Oral, daily atorvastatin 80 mg oral tablet, 1 tablet(s), Oral, daily cloNIDine 0.1 mg oral tablet, 1 tablet(s), Oral, bid, 2 refills Entresto 24 mg-26 mg oral tablet, 0.5 tablet(s), Oral, bid, 11 refills ezetimibe 10 mg oral tablet, 1 tablet(s), Oral, daily Gemtesa 75 mg oral tablet, 75 mg= 1 tablet(s), Oral, daily, 3 refills,?NOT TAKING, PHYSICIAN STOPPED MEDICATION levothyroxine 50 mcg (0.05 mg) oral tablet, 1 tablet(s), Oral, daily before breakfast Metoprolol Tartrate 50 mg oral tablet, 1 tablet(s), Oral, bid minoxidil 2.5 mg oral tablet, 2.5 mg= 1 tablet(s), Oral, bid pantoprazole 40 mg oral delayed release tablet, 40 mg= 1 tablet(s), Oral, bid before meals sucralfate 1 g/10 mL oral suspension, 1 gm= 10 mL, Oral, qid Allergies NKA Social History Alcohol Never alcohol user, 11/23/2022 Substance Abuse Never drug user, 02/16/2023 Tobacco Never smoker, Smokeless Tobacco use: Never. No Cessation Counseling., 11/23/2022 Lab Results ??Test Name ??Test Result ??Date/Time ??CommentsWBC 6.3 K/uL 02/25/2024 11:38 CDT RBC 3.92 M/uL (Low) 02/25/2024 11:38 CDT Hemoglobin 10.9 g/dL (Low) 02/25/2024 11:38 CDT Hematocrit 33.1 % (Low) 02/25/2024 11:38 CDT Sodium 142 mmol/L 02/25/2024 11:38 CDT Potassium 3.7 mmol/L 02/25/2024 11:38 CDT Chloride 108 mmol/L (High) 02/25/2024 11:38 CDT CO2 22 mmol/L 02/25/2024 11:38 CDT BUN 24 mg/dL (High) 02/25/2024 11:38 CDT Creatinine 2.02 mg/dL (High) 02/25/2024 11:38 CDT Glucose 126 mg/dL (High) 02/25/2024 11:38 CDT Calcium 9.5 mg/dL 02/25/2024 11:38 CDT Albumin 4.0 g/dL 02/25/2024 11:38 CDT Bilirubin, Total 0.5 mg/dL 02/25/2024 11:38 CDT AST 27 U/L 02/25/2024 11:38 CDT ALT 21 U/L 02/25/2024 11:38 CDT NT-proBNP 2500 pg/mL 02/25/2024 11:38 CDT The likelihood and the severity of heart failure (HF) are directly proportional to the concentration of NT-proBNP. The ICON study reported the following statistics for diagnosing HF in patients presenting with acute dyspnea (Eur Heart J 2006; 27:330-337). Note that negative and positive predictive values (NPV and PPV, respectively) are applicable only to the extent that a patient is similar to the population in the published study. ?? All ages: <300 pg/mL Sensitivity = 99% NPV (to exclude HF) = 98% ?? <50 yrs: >450 pg/mL Specificity = 93% PPV (to diagnose HF) = 76% 50-75 yrs: >900 pg/mL Specificity = 82% PPV (to diagnose HF) = 83% >75 yrs: >1800 pg/mL Specificity = 73% PPV (to diagnose HF) = 92% Diagnostic Results ??The left ventricular ejection fraction is measured by Simpsons biplane method at 38 %.?? Indeterminate diastolic function due to mitral valve repair or replacement. Mild?? hypertrophy of the basal septum. 2. Mild focal calcification of the anterior and posterior mitral valve leaflet(s). Mild?? mitral regurgitation. Mitral valve annuloplasty ring/repair visualized. S/P mitral valve?? repair with ring annuloplasty. Normal post-surgical appearance of leaflets and ring. 3. Normal appearance and function of the aortic valve. 4. Normal appearance of the tricuspid valve. There is trace tricuspid regurgitation.?? Estimated RVSP 37-42 mmHg. [1] Voice to Text Technology Disclaimer This note may contain text inserted via [employer]ye or other voice to text assistive technology and music therapy specialist, variances may occur. [1]??ECHOCARDIOGRAM COMPLETE STUDY; Zaid Lindquist MD 02/25/2024 12:49 CDT Patient Care team information Care Team Personnel Name: Jada Reynaga MD Position: Physician - Cardiology Member Role: Specialist Physician Address: Address: [address] [place] [address] [place] Name: Nancy Suresh Specialist Position: Population Health Coordinator Member Role: Population Health Coordinator Name: Shereen Owens ENVIRONMENTAL REMEDIATION ENGINEER Position: AMB ENVIRONMENTAL REMEDIATION ENGINEER/PA Member Role: Nurse Practitioner Address: Address: [address] [place] [address] [address] [place] [address] [place] Name: Khoi Hendrickson Member Role: Urologist Name: Kenia Gregory M.D. Position: Physician - Endocrine Member Role: Manager Contract Address: Address: [address] [facility] [address] [place], [place] [id number] [place] Name: Vlad Varner MD Position: Physician - Electrophysiology Member Role: Specialist Physician Address: Address: [address] [place] [address] [place] Name: Jeromy Perez MD Position: Physician - Urology Member Role: Urologist Address: Address: [address] [place] [address] [place] Name: Gab Marquez M.D. Position: Physician - Infectious Disease Member Role: Infectious Disease Address: Address: [address] [facility] [address] [place] [address] [place] Name: Sheron Lamb SPECIALIST II Position: Population Health Coordinator Member Role: Population Health Coordinator Name: Yonas Clements MD Member Role: Specialist Physician Name: Mark Sesay M.D. Position: Physician - Cardiothoracic Surgery Member Role: Specialist Physician Address: Address: [address] [facility] [facility] [place], [place] [address]- Name: Courtney Prado MD Position: Physician - Internal Medicine Member Role: Primary Care Physician Address: Address: [address] [facility] [place] [address] [place] Name: Jessica Crowe ENVIRONMENTAL REMEDIATION ENGINEER Position: P4 Nurse Practitioner Member Role: Nurse Practitioner Address: Address: [address] [facility] [address] Name: Fritz Oreilly MD Position: Physician - Infectious Disease Member Role: Specialist Physician Address: Address: [address] [facility] [address] [place], [place] [id number] [place] Name: Jose Martin Lomas M.D. Position: Physician - Cardiology Member Role: Specialist Physician Address: Address: [facility] [address] [place] [address] [place] Name: Macy Ansari RN Position: AMB ONC Nurse Navigator Member Role: Nurse Navigator Care Team Related Persons Name: JL BROWER Name: ALLAN VALDES Name: FREDA REYES
--- OUTSIDE RECORDS SUMMARY | 2024-04-20 01:04 | XMS_ITS | Continuity of Care Document ---
Author Organization [facility] Address [address] [place] [id number] Care Team Providers Care Project Analyst Name Role Phone Emmanuel Broussard Primary Care Physician [phone] Kemi Daley Unavailable Vlad Varner Unavailable Jose Martin Lomas Unavailable Mark Sesay Unavailable Fritz Oreilly Unavailable Jada Reynaga Unavailable Yonas Clements Unavailable Encounter [facility] Financial Number [id number] Date(s): 08/27/22 - 08/27/[address] [id number] Discharge Disposition: Home or Self Care Attending Physician: David Ruano MD Referring Physician: David Ruano MD Allergies, Adverse Reactions, Alerts No Known Allergies Assessment and Plan Future Appointments Appointment Date:09/01/2022 09:45:00 AM Scheduled Provider:Kemi Daley MD Location:[facility] Appointment Type:[facility] Established Patient Appointment Date:09/01/2022 11:45:00 AM Scheduled Provider:Jose Martin Lomas M.D. Location:[facility] Appointment Type:[facility] ROLANDA Established Patient Cesilia Appointment Date:12/31/2022 10:00:00 AM Scheduled Provider:Emmanuel Broussard MD Location:[facility] Appointment Type:CON CPE Complete Physical Exam Immunizations Given and Recorded Vaccine Date Status Refusal Reason influenza virus vaccine, live, trivalent 05/09/21 Recorded SARS-CoV-2 mRNA (5y-11y) vaccine 05/09/21 Recorded SARS-CoV-2 (COVID-19) mRNA BNT-162b2 vax 1 07/28/20 Recorded SARS-CoV-2 (COVID-19) mRNA BNT-162b2 vax 2 07/03/20 Recorded 1Result Comment: Chavez Santiago 2Result Comment: Pamela Fl Medications allopurinol 100 mg oral tablet 100 mg, 1 tablet(s), Oral, bid, 180 tablet(s), 3, Route to Pharmacy Electronically, [id number], [id number], 183, cm, 02/10/2022 1407, Height, 111.13, kg, 02/10/2022 1407, Weight Start Date: 05/06/22 Status: Ordered amLODIPine 10 mg oral tablet 10 mg, 1 tablet(s), Oral, daily, 90 tablet(s), Tablet(s), 3, 3, Route to Pharmacy Electronically, [facility] #[id number], [id number], 183, cm, 07/01/2022 1255, Height, 117, kg, 07/01/2022 1255, Weight Start Date: 08/25/22 Status: Ordered aspirin 81 mg oral enteric coated tablet 81 mg, 1 tablet(s), Oral, daily, Tab EC, 0 Start Date: 07/05/20 Status: Ordered atorvastatin 80 mg oral tablet 1 tablet(s), Oral, daily, 90 tablet(s), 2, Route to Pharmacy Electronically, [facility] #[id number], [id number], 182, cm, 01/14/2022 0958, Height, 116.3, kg, 01/14/2022 1002, Weight Start Date: 01/28/22 Status: Ordered cloNIDine 0.1 mg oral tablet 0.1 mg, 1 tablet(s), Oral, bid, 180 tablet(s), Tablet(s), 3, 3, Route to Pharmacy Electronically, [facility] #[id number], [id number], 183, cm, 07/01/2022 1255, Height, 117, kg, 07/01/2022 1255, Weight Start Date: 07/02/22 Stop Date: 06/27/23 Status: Ordered ezetimibe 10 mg oral tablet 1 tablet(s), Oral, daily, 30 tablet(s), 7, Route to Pharmacy Electronically, [facility] #[id number], [id number], 182, cm, 01/14/2022 0958, Height, 116.3, kg, 01/14/2022 1002, Weight Start Date: 01/28/22 Status: Ordered levothyroxine 50 mcg (0.05 mg) oral tablet 50 mcg, 1 tablet(s), Oral, daily before breakfast, 90 tablet(s), Tablet(s), 3, 3, Route to PharmacyElectronically, [facility] #[id number], [id number], 182, cm, 12/05/2021 1020, Height, 114, kg, 12/05/2021 1022, Weight Start Date: 12/10/21 Status: Ordered Lupron mg, 0 Start Date: 12/05/21 Status: Ordered Metoprolol Tartrate 50 mg oral tablet 1 tablet(s), Oral, bid, 180 tablet(s), 3, Route to Pharmacy Electronically, [facility] #[id number], [id number], 182, cm, 12/05/2021 1020, Height, 114, kg, [...] atrial fibrillation Confirmed Active Proteinuria Confirmed Active Procedures Procedure Date Related Diagnosis Body [...] Safety Implantable Status Assigning Authority Unknown Unknown [id number] Unknown 03/04/23 Unknown Unknown Active Unkn own Procedure Provider Procedure Date Device Type Site Mitral Valve Annuloplasty Unknown 07/11/20 Unknown Unknown Device Identifier Serial Number Lot or Batch Number Manufacturing Date Expiration Date Distinct Identification Code MRI Safety Implantable Status Assigning Authority [id number] [id number] Unknown Unknown 03/13/24 Unknown MR Condrianna onal [...] Date: Status:Met Progression:Met Note * Event Display: [facility] * Event Display: [facility] * Event Display: [facility] * Event Display: [facility] MR Brain/Brainstem w/wo Contrast Authored Date: * Event Display: [facility] MR Brain/Brainstem w/wo Contrast Authored Date: [place], [place] [facility] Completed on: 08/27/2022 03:43 PM (CT) MRI BRAIN AND IACs WITH AND WITHOUT CONTRAST COMPARISON: None. CONTRAST: 10 cc dotarem IV HISTORY: Right ear hearing loss. Tinnitus. TECHNIQUE: MR imaging was performed of the brain prior to and after contrast with additional high-resolution axial and coronal imaging through the IACs on a 1.5T MRI. FINDINGS: Pmqg-th-ktqvmhlh brain volume loss. Gradient-echo T2 susceptibility images do show a few scattered tiny hemorrhages, perhaps related to some old injury though cannot exclude early amyloid angiopathy. The inner ear and internal auditory canal structures are all normal. No hydrocephalus. No enhancing mass lesions. Opinion: Normal inner ear and internal auditory canals. Rgjr-we-pzebxxgn brain volume loss. A few tiny susceptibility artifact/images, perhaps related to some old injury though cannot exclude early amyloid angiopathy. . Read by: Evens Blanco M.D. Reviewed and Electronically Signed by: Evens Blanco M.D. * Event Display: ROI_Correspondence * Event Display: ROI_Correspondence Authored Date: * Event Display: ROI_Correspondence * Event Display: ROI_Correspondence * Event Display: ROI_Correspondence Authored Date: * Event Display: ROI_Correspondence Authored Date: * Event Display: ROI_Correspondence Patient Care team information Care Team Personnel Name: Jada Reynaga MD Position: Physician - Cardiology Member Role: Specialist Physician Address: Address: [address] [place] [address] [place] Name: Nancy Suresh Specialist Position: Population Health Coordinator Member Role: Population Health Coordinator Name: Khoi Hendrickson Member Role: Urologist Name: Vlad Varner MD Position: Physician - Electrophysiology Member Role: Specialist Physician Address: Address: [address] [place] [address] [place] Name: Gab Marquez M.D. Position: Physician - Infectious Disease Member Role: Infectious Disease Address: Address: [address] [place] [address] [place] Name: Yonas Clements MD Position: Physician - Electrophysiology Member Role: Specialist Physician Address: Address: [address] [place] [address] [place] Name: Mark Sesay M.D. Position: Physician - Cardiothoracic Surgery Member Role: Specialist Physician Address: Address: [address] [place], [place] [address]- Name: Darling Santiago NP Position: AMB PROPERTY ASSESSMENT MONITOR/PA Member Role: Nurse Practitioner Address: Address: [address] [place] [address] [place] Name: Kemi Daley MD Position: Physician - Endocrine Member Role: Specialist Physician Address: Address: [address] [place] [phone] [place] Name: Fritz Oreilly MD Position: Physician - Infectious Disease Member Role: Specialist Physician Address: Address: [address] [place], [place] [phone] [place] Name: Gloria Soto Position: AMB PROPERTY ASSESSMENT MONITOR/PA Member Role: Nurse Practitioner Address: Address: [address] [place] [address] [place] Name: Jose Martin Lomas M.D. 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
--- OUTSIDE RECORDS SUMMARY | 2024-04-20 01:04 | XMS_ITS | Continuity of Care Document ---
Author Organization [facility] [address] Address [address] [id number] Care Team Providers Care Engagement Manager Name Role Phone Courtney Prado Primary Care Physician Encounter [facility] Financial Number [id number] Date(s): 09/07/23 - 09/07/23 [facility] [address] [phone] Encounter Diagnosis Hypertension(Discharge Diagnosis) - 09/06/23 Hyperlipidemia(Discharge Diagnosis) - 09/06/23 CKD (chronic kidney disease), stage III(Discharge Diagnosis) - 09/06/23 CAD (coronary artery disease)(Discharge Diagnosis) - 09/06/23 S/P CABG x 1(Discharge Diagnosis) - 09/06/23 S/P mitral valve repair(Discharge Diagnosis) - 09/06/23 Ascending aorta dilation(Discharge Diagnosis) - 09/06/23 PAF (paroxysmal atrial fibrillation)(Discharge Diagnosis) - 09/06/23 Hypothyroidism(Discharge Diagnosis) - 09/06/23 GERD with esophagitis(Discharge Diagnosis) - 09/06/23 History of prostate cancer(Discharge Diagnosis) - 09/06/23 History of radiation therapy(Discharge Diagnosis) - 09/06/23 S/P prostatectomy(Discharge Diagnosis) - 09/06/23 Discharge Disposition: Home or Self Care Attending Physician: Courtney Prado MD Allergies, Adverse Reactions, Alerts No Known Allergies Assessment and Plan Future Appointments Appointment Date:10/01/2023 02:45:00 PM Scheduled Provider: Location:[facility] Appointment Type:CCC NV Nurse Visit Cesilia Appointment Date:10/12/2023 11:20:00 AM Scheduled Provider:Jeromy Perez MD Location:[facility] Appointment Type:USSL Established Patient 20mins Appointment Date:03/24/2024 02:30:00 PM Scheduled Provider:Courtney Prado MD Location:[facility] Appointment Type:[facility] CPE Complete Physical Exam Appointment Date:09/12/2024 10:30:00 AM Scheduled Provider:Kemi Daley MD Location:[facility] Appointment Type:[facility] EP Established Patient Immunizations Given and Recorded Vaccine Date Status Refusal Reason influenza virus vaccine, inactivated 02/16/23 Give n influenza virus vaccine, live, trivalent 05/09/21 Recorded SARS-CoV-2 mRNA (5y-11y) vaccine 05/09/21 Recorded SARS-CoV-2 (COVID-19) mRNA BNT-162b2 vax 1 07/28/20 Recorded SARS-CoV-2 (COVID-19) mRNA BNT-162b2 vax 2 07/03/20 Recorded 1Result Comment: [facility] 2Result Comment: [place], [place] Medications allopurinol 100 mg oral tablet 100 mg, 1 tablet(s), Oral, bid, 180 tablet(s), 2, 2, Route to Pharmacy Electronically, [facility] #[id number], [id number], 183, cm, 02/16/23 13:04:00 CDT, Height, 110.5, kg, 02/16/23 13:04:00 CDT, Weight Start Date: 05/15/23 Stop Date: 02/09/24 Status: Ordered amLODIPine 10 mg oral tablet 10 mg, 1 tablet(s), Oral, daily, 90 tablet(s), Tablet(s), 3, 3, Route to Pharmacy Electronically, [facility] #[id number], [id number], 183, cm, 07/01/2022 1255, Height, 117, kg, 07/01/2022 1255, Weight Start Date: 08/25/22 Status: Ordered Arexvy preservative-free intramuscular injection 60 mcg, 0.5 mL, IntraMuscular, Once, 0.5 mL, 0, 0, Pharmacy to administer, Route to Pharmacy Electronically, [facility] #[id number], [id number], 183, cm, 09/07/23 11:29:00 CDT, Height, 109.3, kg, 09/07/23 11:29:00 CDT, Weight Start Date: 09/07/23 Status: Ordered aspirin 81 mg oral enteric coated tablet 81 mg, 1 tablet(s), Oral, daily, Tab EC, 0 Start Date: 07/05/20 Status: Ordered atorvastatin 80 mg oral tablet 1 tablet(s), Oral, daily, 90 tablet(s), 3, Route to Pharmacy Electronically, [facility] #[id number], [id number], 183, cm, 02/16/23 13:04:00 CDT, Height, 110.5, kg, 02/16/23 13:04:00 CDT, Weight Start Date: 07/13/23 Status: Ordered cloNIDine 0.1 mg oral tablet 1 tablet(s), Oral, bid, 180 tablet(s), 2, 2, Route to Pharmacy Electronically, [facility]#[id number], [id number], 183, cm, 02/16/23 13:04:00 CDT, Height, 110.5, kg, 02/16/23 13:04:00 CDT, Weight Start Date: 08/06/23 Stop Date: 05/02/24 Status: Ordered ezetimibe 10 mg oral tablet 1 tablet(s), Oral, daily, 90 tablet(s), 3, 3, Route to Pharmacy Electronically, [facility] #[id number], [id number], 183, cm, 09/01/2022 1142, Height, 119, kg, 09/01/2022 1142, Weight Start Date: 10/14/22 Stop Date: 10/09/23 Status: Ordered Gemtesa 75 mg oral tablet 75 mg, 1 tablet(s), Oral, daily, 30 tablet(s), 3, 3, Route to Pharmacy Electronically, [facility] #[id number], [id number], 183, cm, 02/16/23 13:04:00 CDT, Height, 110.5, kg, 02/16/23 13:04:00 CDT, Weight Start Date: 07/20/23 Stop Date: 11/17/23 Status: Ordered levothyroxine 50 mcg (0.05 mg) oral tablet 50 mcg, 1 tablet(s), Oral, daily before breakfast, 90 tablet(s), Tablet(s), 3, 3, Route to PharmacyElectronically, [facility] #[id number], [id number], 183, cm, 09/01/2022 1142, Height, 119, kg, 09/01/2022 1142, Weight Start Date: 11/18/22 Status: Ordered Metoprolol Tartrate 50 mg oral tablet 1 tablet(s), Oral, bid, 180 tablet(s), 2, Route to Pharmacy Electronically, [facility] #[id number], [id number], 182, cm, 11/24/22 13:26:00 CDT, Height, 106, kg, 11/23/22 12:54:00 CDT, Weight Start Date: 12/24/22 Status: Ordered MiraLax oral powder for reconstitution 1 packet(s), Oral, daily, PRN, REC Powder, 0, constipation Start Date: 08/20/20 Status: Ordered pantoprazole 40 mg oral delayed release tablet 40 mg, 1 tablet(s), Oral, bid before meals, 180 tablet(s), Tab EC, 0, 0, Route to Pharmacy Electronically, [facility] #[id number], [id number], 182, cm, 11/24/2022 1326, Height, 106, kg, 11/23/2022 1254, Weight Start Date: 11/25/22 Stop Date: 02/23/23 Status: Ordered solifenacin 5 mg oral tablet 5 mg, 1 tablet(s), Oral, daily, 90 tablet(s), Tablet(s), 2, 2, Route to Pharmacy Electronically, [facility] #[id number], [id number], 183, cm, 02/16/23 13:04:00 CDT, Height, 110.5, kg, 02/16/23 13:04:00 CDT, Weight Start Date: 08/12/23 Stop Date: 05/08/24 Status: Ordered sucralfate 1 g/10 mL oral suspension 1 gm, 10 mL, Oral, qid, 1,200 mL, Susp, 0, 0, Route to Pharmacy Electronically, [facility] #[id number], [id number], 182, cm, 11/24/2022 1326, Height, 106, kg, [...] 1 Temperature Temporal Artery [35.8-38 Deg C] 35.3 DegC *L (09/07/23 11:29 AM) Peripheral Pulse Rate [60-100 bpm] 55 bp m *L* (09/07/23 11:29 AM) Blood Pressure [89-139/60-90 mm Hg] 124/ 80mm Hg (09/07/23 11:29 AM) Height 183 cm (09/07/23 11:29 AM) Weight 109.3 kg (09/07/23 11:29 AM) Social History Social History Type Response [...] Safety Implantable Status Assigning Authority Unknown Unknown [id number] Unknown 03/04/23 Unknown Unknown Active Unkn own Procedure Provider Procedure Date Device Type Site Mitral Valve Annuloplasty Unknown 07/11/20 Unknown Unknown Device Identifier Serial Number Lot or Batch Number Manufacturing Date Expiration Date Distinct Identification Code MRI Safety Implantable Status Assigning Authority [id number] Unknown Unknown 03/13/24 Unknown MR Maria onani [...] Date: Status:Met Progression:Met Note * Event Display: Consent/Registration Forms Authored Date: * Event Display: Consent/Registration Forms Authored Date: * Event Display: Privacy Practice Authored Date: * [facility] Docket Specialist: PERFORM Event Display: ROI_Correspondence Authored Date: * Event Display: ROI_Correspondence * Event Display: ROI_Correspondence Authored Date: Internal medicine Outpatient Note * Courtney Prado MD: PERFORM Event Display: Internal Medicine Office/Clinic Note Authored Date: Patient Information Name:SHANON CHAPA Address: [address] [place] [phone] Sex:Male Date of :1945 Emergency Contact:FREDA REYES Location:[facility] [address] Registration Date and Time:09/07/2023 11:15 CDT Primary Care Physician: Courtney Prado MD, Attending Physician: Courtney Prado MD, Chief Complaint 6 month f/u; medical issues History of Present Illness Mr. Chapa??is here today for his follow-up visit.?? His daughters accompanied him during the visit.?? Overall he feels okay.?? Denies chest pain??or palpitation or shortness of breath.?? He sees??Dr.Morton Lomas for his cardiac issues.?? He has hypertension, hyperlipidemia, CKD stage III, coronary artery disease s/p CABG and mitral valve repair??and ascending aorta dilatation??and paroxysmal atrial fibrillation. ?He sees??Dr Daley, commercial collector??for??his hypothyroidism.?? He had a history of prostate cancer and had prostatectomy and radiation treatment??and is followed by urologist Dr. Perez.?? He does have some overactive bladder issue and he is on medication for it. Review of Systems GENERAL: No significant wt loss or wt gain, no fever or chills HEENT: No hearing problems or pain in ears, nose ??or throat RESPIRATORY: No cough, SOB or Wheezing, no pleuritic chest pain CVS: No chest pain, exertional dyspnea, palpitation, dizziness or syncope GI: No abdominal pain, nausea, vomiting, diarrhea or blood in stool MUSCULOSKELETAL: No joint pain or swelling or redness of joints SKIN: No skin lesions or rashes or change in moles : No dysuria, no incontinence,no blood in urine,?has overactive bladder symptoms NEUROLOGICAL: No dizziness, headache or visual changes. No focal weakness or sensory disturbance PSYCHIATRIC: No depression, suicidal or homicidal thoughts, no mood swings ? Vitals and Measurements Vital Signs Height: 183 cm Height Inches Conversion: 72 Weight: 109.3 kg Weight in Pounds (kg conversion): 240.5 Body Surface Area: 2.3571 m2 Body Mass Index: 32.64 kg/m2 Temperature Temporal Artery:??35.3 DegC??Critical Systolic Blood Pressure: 124 mm Hg Diastolic Blood Pressure: 80 mm Hg Peripheral Pulse Rate:??55 bpm??Low Oxygen Saturation: 98 % HRA Pain Present: No Physical Exam General Examination GENERAL APPEARANCE: Overall appearance is appropriate for patient???s age, pleasant obese elderly gentleman,??well developed and well nourished, in no acute distress.? EYES: extra ocular muscles intact (EOMI) bilaterally, pupils, equal, round, sclera clear.?? HEENT: Head - normocephalic/atraumatic, EARS: tympanic membranes normal,??NOSE: Exam deferred ORAL CAVITY: Exam deferred NECK/THYROID: no carotid bruit, no jugular venous distention (JVD), no lymphadenopathy, no thyromegaly.?? CARDIOVASCULAR: regular rate and rhythm, normal S1S2, no murmurs, gallops or rubs.?? CHEST: symmetrical.?? RESPIRATORY: normal breath sounds, no wheezes, rhonchi, rales.?? GASTROINTESTINAL: soft, non-tender/non-distended, bowel sounds present.?? SKIN: unremarkable.?? EXTREMITIES: no clubbing, cyanosis, or edema.?? PERIPHERAL PULSES: normal (2+) bilaterally.?? LYMPH NODES: No palpable adenopathy.?? RECTAL: Deferred BACK: No spinal tenderness. MUSCULOSKELETAL: No joint pain or redness or swelling of joints. NEUROLOGIC EXAM: Alert and orientated?3, cranial nerves II-XII grossly intact, ??no motor/sensory deficit. Gait normal. PSYCHIATRIC: Normal affect, no suicidal or homicidal ideations or thoughts?, good eye contact.? Assessment/Plan 1.??Hypertension ??Blood pressure is stable and under control.?? Continue current med regimen. ??Followed by licensed practical vocational nurse Dr. Jose Martin Lomsa. Ordered: CBC with Differential Comprehensive Metabolic Profile Lipid Panel ?? 2.??Hyperlipidemia ??Follow low-fat low-cholesterol heart healthy diet.?? Continue??atorvastatin and Zetia treatment. Ordered: CBC with Differential Comprehensive Metabolic Profile Lipid Panel ?? 3.??CKD (chronic kidney disease), stage III ??Avoid nephrotoxic agents and drugs. ??Monitor renal function. Ordered: CBC with Differential Comprehensive Metabolic Profile ?? 4.??CAD (coronary artery disease) ??Currently denies chest pain or angina symptoms.?? Continue??current med regimen.?? Follow-up withcardiologist Dr. Jose Martin Lomas as scheduled. Ordered: Lipid Panel ?? 5.??S/P CABG x 1 ??Not having any acute issues. ??Followed by licensed practical vocational nurse as mentioned above. ?? 6.??S/P mitral valve repair ??Monitored and followed by licensed practical vocational nurse. ?? 7.??Ascending aorta dilation ??Monitored and followed by licensed practical vocational nurse. ?? 8.??PAF (paroxysmal atrial fibrillation) ??Rhythm is currently stable.?? Continue aspirin??treatment. ?? 9.??Hypothyroidism ??Continue levothyroxine. ??Followed by??Dr Nadella. ?? 10.??GERD with esophagitis ??Follow reflux precautions.?? Use PPI as needed. ?? 11.??History of prostate cancer ??Had prostatectomy and??radiation treatment.?? Followed by urologist. ?? 12.??S/P prostatectomy ??Not having any acute issues. ??Followed by urologist as mentioned above. ?? 13.??History of radiation therapy ??Not having any acute issues. ??Followed by urologist. ?? Orders: gabapentin, 100 mg, 1 capsule(s), Oral, tid, 90 capsule(s), Capsule(s), 0, 0, Route to Pharmacy Electronically, [facility] #[id number], [id number], 183, cm, 02/16/23 13:04:00 CDT, Height, 110.5, kg, 02/16/23 13:04:00 CDT, Weight RSV vaccine preF3, recombinant, 60 mcg, 0.5 mL, IntraMuscular, Once, 0.5 mL, 0, 0, Pharmacy to administer, Route to Pharmacy Electronically, [facility] #[id number], [id number], 183, cm, 09/07/23 11:29:00 CDT, Height, 109.3, kg, 09/07/23 11:29:00 CDT, W... Future Order Details CBC with Differential, 09/07/23, Blood, ROUTINE, Routine, Order for Future Visit, Print Label, Hyperlipidemia CKD (chronic kidney disease), stage III Hypertension, Hold Until Collected Comprehensive Metabolic Profile, 09/07/23, Blood, ROUTINE, Routine, Order for Future Visit, Print Label, Hyperlipidemia CKD (chronic kidney disease), stage III Hypertension, Not Required, Hold Until Collected Lipid Panel, 09/07/23, Blood, ROUTINE, Routine, Order for Future Visit, Print Label, Hyperlipidemia Hypertension CAD (coronary artery disease), Not Required, Hold Until Collected, Yes Patient Instructions Follow-up in 6 months for CPE Problem List/Past Medical History Ongoing Anemia of [...] (2022)???Biopsy of prostate???Cardiac catheterization???cardiac stents???Prostatectomy Medications New RSV vaccine preF3, recombinant (Arexvy preservative-free intramuscular injection)0.5 Milliliter IntraMuscular once. Pharmacy to administer. Refills: 0. Unchanged allopurinol (allopurinol 100 mg oral tablet)1 tablet(s) By mouth 2 times a day for 90 day(s). Refills: 2. amLODIPine (amLODIPine 10 mg oral tablet)1 tablet(s) [...] mouth daily for 90 day(s). Refills: 3. levothyroxine (levothyroxine 50 mcg (0.05 mg) oral tablet)1 tablet(s) By mouth daily before breakfast. Refills: 3. metoprolol (Metoprolol Tartrate 50 mg oral tablet)1 tablet(s) By mouth 2 times a day. Refills: 2. pantoprazole (pantoprazole 40 mg oral delayed release tablet)1 tablet(s) By mouth 2 times a day before meals for 90 day(s). Refills: 0. polyethylene glycol 3350 (MiraLax oral powder for reconstitution)1 packet(s) By mouth daily as needed constipation. solifenacin (solifenacin 5 mg oral tablet)1 tablet(s) By mouth daily for 90 day(s). Refills: 2. sucralfate (sucralfate 1 g/10 mL oral suspension)10 Milliliter By mouth 4 times a day for 30 day(s). Refills: 0. vibegron (Gemtesa 75 mg oral tablet)1 tablet(s) By mouth daily for 30 day(s). Refills: 3. Immunizations Vaccine Date Statusinfluenza virus vaccine, inactivated [...] Event Name?? Event Result?? Date/Time?? Oxygen Saturation 98 % 09/07/23 11:29:00 ? Voice to Text Technology Disclaimer This note may contain text inserted via Dragon or other voice to text assistive technology and grease refiner operator, variances may occur. Outpatient Summary note * Cara Gomez MA/MR II: PERFORM Event Display: Ambulatory Patient Summary Authored Date: [id number] SHANON CHAPA :1945 Visit Date:09/07/2023 [facility] Visit Instructions Your Diagnosis Hypertension Hyperlipidemia CKD (chronic kidney disease), stage III CAD (coronary artery disease) S/P CABG x 1 S/P mitral valve repair Ascending aorta dilation PAF (paroxysmal atrial fibrillation) Hypothyroidism GERD with esophagitis History of prostate cancer S/P prostatectomy History of radiation therapy Your Care Team Attending Physician - Courtney Prado MD Primary Care Physician - Courtney Prado MD Procedure History ???Repair of diaphragmatic hiatal hernia (11/23/2022)???UPPER GI ENDOSCOPY PERFORMED (2022)???Biopsy of prostate???Cardiac catheterization???cardiac stents???Prostatectomy Discharge Vitals Vital Signs Height: 183 cm Height Inches Conversion: 72 Weight: 109.3 kg Weight in Pounds (kg conversion): 240.5 Body Surface Area: 2.3571 m2 Body Mass Index: 32.64 kg/m2 Temperature Temporal Artery:??35.3 DegC??Critical Systolic Blood Pressure: 124 mm Hg Diastolic Blood Pressure: 80 mm Hg Peripheral Pulse Rate:??55 bpm??Low Oxygen Saturation: 98 % HRA Pain Present: No What to do next Instructions From Your Doctor Follow-up in 6 months for CPE Scheduled Follow-Up Appointments 2023 2:45 PM CDT ?? With: Where: [facility] [address] [facility] [address] [place], [place] [id number] Thursday 11:20 AM CDT ?? With: Jeromy Perez MD Where: [facility] 2023 2:30 PM PROCESS CONTROL MANAGER ?? With: Courtney Prado MD Where: [facility] [address] [facility] [address] [place], [place] [phone] Thursday 10:30 AM CDT ?? With: Kemi Daley MD Where: [facility] [address] You Need to Complete the Following CBC with Differential, 09/07/23, Blood, ROUTINE, Routine, Order for Future Visit, Print Label, Hyperlipidemia CKD (chronic kidney disease), stage III Hypertension, Hold Until Collected Comprehensive Metabolic Profile, 09/07/23, Blood, ROUTINE, Routine, Order for Future Visit, Print Label, Hyperlipidemia CKD (chronic kidney disease), stage III Hypertension, Not Required, Hold Until Collected Lipid Panel, 09/07/23, Blood, ROUTINE, Routine, Order for Future Visit, Print Label, Hyperlipidemia Hypertension CAD (coronary artery disease), Not Required, Hold Until Collected, Yes Referral Information Referral Information ? No Results Found ? Medications What How Much When Instructions New RSV vaccine preF3, recombinant (Arexvy preservative-free intramuscular injection) 0.5 Milliliter IntraMuscular Once Pharmacy to administer ?? Pickup at [facility] #[id number] Unchanged allopurinol (allopurinol 100 mg oral tablet) [...] By mouth Daily Duration: 90 day(s) Unchanged levothyroxine (levothyroxine 50 mcg (0.05 mg) oral tablet) 1 tablet(s) By mouth Daily before breakfast Unchanged metoprolol (Metoprolol Tartrate 50 mg oral tablet) 1 tablet(s) By mouth 2 times a day Unchanged pantoprazole (pantoprazole 40 mg oral delayed release tablet) 1 tablet(s) By mouth 2 times a day before meals Duration: 90 day(s) Unchanged polyethylene glycol 3350 (MiraLax oral powder for reconstitution) 1 packet(s) By mouth Daily as needed for constipation Unchanged solifenacin (solifenacin 5 mg oral tablet) 1 tablet(s) By mouth Daily Duration: 90 day(s) Unchanged sucralfate (sucralfate 1 g/ 10 mL oral suspension) 10 Milliliter By mouth 4 times a day Duration: 30 day(s) Unchanged vibegron (Gemtesa 75 mg oral tablet) 1 tablet(s) By mouth Daily Duration: 30 day(s) Pharmacy Information [facility] #[id number]: [address] [place], [place] [phone] Medications and Immunizations Administered Medication Administrations ? [...] in sleeping PatientStated No qualifying data Historical Prostate cancer Common Emergency Awareness Tips IS IT A STROKE? Act FAST and Check for these signs: FACE Does the face look uneven? ARM Does one arm drift down? SPEECH Does their speech sound strange? TIME Call at any sign of stroke Voice to Text Technology Disclaimer This note may contain text inserted via Dragon or other voice to text assistive technology and grease refiner operator, variances may occur. Patient Care team information Care Team Personnel Name: Jada Reynaga MD Position: Physician - Cardiology Member Role: Specialist Physician Address: Address: [address] [facility] [address] [place] [address] [place] Name: Nancy Suresh Pantry Worker Position: Population Health Coordinator Member Role: Population Health Coordinator Name: Khoi Hendrickson Member Role: Urologist Name: Kenia Gregory M.D. Position: Physician - Endocrine Member Role: Biomedical Field Service Engineer Address: Address: [address] [facility] [address] [place], [place] [phone] [place] Name: Vlad Varner MD Position: Physician - Electrophysiology Member Role: Specialist Physician Address: Address: [address] [place] [address] [place] Name: Jeromy Perez MD Position: Physician - Urology Member Role: Urologist Address: Address: [address] [place] [address] [place] Name: Gab Marquez M.D. Position: Physician - Infectious Disease Member Role: Infectious Disease Address: Address: [address] [facility] [facility] [address] [place] [address] [place] Name: Sheron Lamb SPECIALIST II Position: Population Health Coordinator Member Role: Population Health Coordinator Name: Yonas Clements MD Member Role: Specialist Physician Name: Mark Sesay M.D. Position: Physician - Cardiothoracic Surgery Member Role: Specialist Physician Address: Address: [address] [facility] [address] [place], [place] [address]- Name: Courtney Prado MD Position: Physician - Internal Medicine Member Role: Primary Care Physician Address: Address: [address] [place] [address] [place] Name: Fritz Oreilly MD Position: Physician - Infectious Disease Member Role: Specialist Physician Address: Address: [address] [facility] [address] [place], [place] [phone] [place] Name: Jose Matrin Lomas M.D. Position: Physician - Cardiology Member Role: Specialist Physician Address: Address: [facility] [address] [place] [address] Name: Macy Ansari RN Position: AMB ONC Nurse Navigator Member Role: Nurse Navigator Name: Courtney Prado MD Position: Physician - Internal Medicine Med Service: Wire Straightener Engagement Manager Role: Attending Physician Address: Address: [address] Care Team Related Persons Name: JL BROWER Name: ALLAN VALDES Name: FREDA REYES
--- OUTSIDE RECORDS SUMMARY | 2024-04-20 01:04 | XMS_ITS | Continuity of Care Document ---
Author Organization [facility] Address [address] [place] [id number] Care Team Providers Care Coreroom Foundry Laborer Name Role Phone Emmanuel Broussard Primary Care Physician Kemi Daley Unavailable Vlad Varner Unavailable Jose Martin Lomas Unavailable Mark Sesay Unavailable Fritz Oreilly Unavailable Jada Reynaga Unavailable Yonas Clements Unavailable Encounter [facility] Financial Number [id number] Date(s): 02/10/22 - 02/10/22 [facility] [address] [phone] Encounter Diagnosis Prostate cancer(Discharge Diagnosis) - 02/10/22 Discharge Disposition: Home or Self Care Attending Physician: Levi Cruz M.D. Referring Physician: Emmanuel Broussard MD Allergies, Adverse Reactions, Alerts No Known Allergies Assessment and Plan Future Appointments Appointment Date:03/06/2022 12:30:00 PM Scheduled Provider:Jose Martin Lomas M.D. Location:[facility] Appointment Type:CCC EP Established Patient Cesilia Appointment Date:04/22/2022 10:15:00 AM Scheduled Provider:Vlad Varner MD [facility] Type:SLES EP Established Patient Appointment Date:06/09/2022 01:30:00 PM Scheduled Provider:Emmanuel Broussard MD Location:[facility] Appointment Type:CON EP Established Patient Appointment Date:07/10/2022 10:30:00 AM Scheduled Provider:Kemi Daley MD Location:[facility] Appointment Type:NAWAF ORANTES Established Patient Appointment Date:09/01/2022 11:45:00 AM Scheduled Provider:Jose Martin Lomas M.D. Location:[facility] Appointment Type:[facility] EP Established Patient Maribelder Immunizations Given and Recorded Vaccine Date Status Refusal Reason influenza virus vaccine, live, trivalent 05/09/21 Recorded SARS-CoV-2 mRNA (5y-11y) vaccine 05/09/21 Recorded SARS-CoV-2 (COVID-19) mRNA BNT-162b2 vax 1 07/28/20 Recorded SARS-CoV-2 (COVID-19) mRNA BNT-162b2 vax 2 07/03/20 Recorded 1Result Comment: [place], [place] 2Result Comment: [place] Medications allopurinol 100 mg oral tablet 200 mg, 2 tablet(s), Oral, daily, 180 tablet(s), Tablet(s), 3, 3, Route to Pharmacy Electronically,[facility] #[id number], [id number], 182.88, cm, 05/23/2021 0950, Height, 119, kg, 05/23/2021 0950, Weight Start Date: 05/23/21 Stop Date: 05/18/22 Status: Ordered amLODIPine 10 mg oral tablet 10 mg, 1 tablet(s), Oral, daily, 90 tablet(s), Tablet(s), 3, 3, Route to Pharmacy Electronically, [facility] #[id number], [id number], 182.88, cm, 05/23/2021 0950, Height, 119, kg, 05/23/2021 0950, Weight Start Date: 05/23/21 Status: Ordered aspirin 81 mg oral enteric coated tablet 81 mg, 1 tablet(s), Oral, daily, Tab EC, 0 Start Date: 07/05/20 Status: Ordered atorvastatin 80 mg oral tablet 1 tablet(s), Oral, daily, 90 tablet(s), 2, Route to Pharmacy Electronically, [facility][id number], [id number], 182, cm, 01/14/2022 0958, Height, 116.3, kg, 01/14/2022 1002, Weight Start Date: 01/28/22 Status: Ordered ezetimibe 10 mg oral tablet 1 tablet(s), Oral, daily, 30 tablet(s), 7, Route to Pharmacy Electronically, [id number], [id number], 182, cm, 01/14/2022 0958, Height, 116.3, kg, 01/14/2022 1002, Weight Start Date: 01/28/22 Status: Ordered levothyroxine 50 mcg (0.05 mg) oral tablet 50 mcg, 1 tablet(s), Oral, daily before breakfast, 90 tablet(s), Tablet(s), 3, 3, Route to PharmacyElectronically, [facility] [place] #[id number], [id number], 182, cm, 12/05/2021 1020, Height, 114, kg, 12/05/2021 1022, Weight Start Date: 12/10/21 Status: Ordered Lupron mg, 0 Start Date: 12/05/21 Status: Ordered Metoprolol Tartrate 50 mg oral tablet 1 tablet(s), Oral, bid, 180 tablet(s), 3, [facility] [place] [facility][id number], [id number], 182, cm, 12/05/2021 1020, Height, 114, kg, 12/05/2021 1022, Weight Start Date: 12/30/21 Status: Ordered MiraLax oral powder for reconstitution 1 packet(s), Oral, daily, PRN, REC Powder, 0, constipation Start Date: 08/20/20 Status: Ordered Multivitamin oral tablet 1 tablet(s), Oral, daily, 30 tablet(s), Tablet(s), 0 Start Date: 05/23/20 Status: Ordered Problem List Condition Confirmation Course [...] Active S/P mitral valve repair Confirmed Active Hyperlipidemia Confirmed Active Hypertension Confirmed Active Hypothyroidism Confirmed Active Trouble in sleeping Confirmed Active Prostate cancer Confirmed Active Near syncope Confirmed Active Medication monitoring encounter Confirmed Active Persistent atrial fibrillation Confirmed Active Proteinuria Confirmed Active Elevated TSH Confirmed Active Procedures Procedure Date Related Diagnosis Body Site Status Biopsy of prostate Comple mary Cardiac catheterization C ompleted cardiac stents 1 Complete d Prostatectomy Completed 2018 Vital Signs Most recent to oldest [Reference Range]: 1 Temperature Temporal Artery [35.8-38 Deg C] 36.6 DegC (02/10/22 2:07 PM) Peripheral Pulse Rate [60-100 bpm] 74 bp m (02/10/22 2:07 PM) Blood Pressure [89-139/60-90 mm Hg] 149/ 94mm Hg *H* (02/10/22 2:07 PM) Height 183 cm (02/10/22 2:07 PM) Weight 111.13 kg (02/10/22 2:07 PM) Social History Social History Type Response [...] Safety Implantable Status Assigning Authority Unknown Unknown [id number] Unknown 03/04/23 Unknown Unknown Active Unkn own Procedure Provider Procedure Date Device Type Site Mitral Valve Annuloplasty Unknown 07/11/20 Unknown Unknown Device Identifier Serial Number Lot or Batch Number Manufacturing Date Expiration Date Distinct Identification Code MRI Safety Implantable Status Assigning Authority [id number] Unknown Unknown 03/13/24 Unknown MR Candace stephenson [...] Date:05/28/20 End Date: Status:Met Progression:Met Note * Levi Cruz M.D.: PERFORM Event Display: Radiation Oncology Office/Clinic Note Authored Date: [id number] Patient Information Name:SHANON BROWN Address: [address] [place] [phone] Sex:Male Date of :1945 Emergency Contact:ALLAN VALDES Location:[facility] Registration Date and Time:02/10/2022 13:48 CDT Primary Care Physician: Emmanuel Broussard MD, Attending Physician: Levi Cruz M.D., Note Diagnosis: A??76 Year old??Male, diagnosed with a??high risk Erin 4+5 =9, T3b,??prostate cancer. ?? Treatment Rendered:?The patient??underwent a prostatectomy??in the care of Dr. Khoi Hendrickson??in March 2020. ?? He was then treated with a course of radiation therapy??to a dose of 66 Miller to the prostate bed and 46 Miller to the pelvic lymph nodes completed on 10/25/2021. ?? The patient currently receives androgen deprivation therapy in the form of Lupron under the careof Dr. Lazo. ?? Impression:??The patient's PSA was undetectable on 12/07/2021.??He tolerates his Lupron well. ?? Plan:??Continue Lupron for at least 18 months.??The patient will continue to follow up with Dr. Hendrickson and Dr. Lazo. I plan to see him back in my office in one year however he is strongly encouraged to contact my office if any issues develop within the interim. ?? -Prostate-specific antigen every 6-12 months for 5 years, then yearly thereafter. -Digital rectal examination every year; may be omitted if prostate-specific antigen undetectable. ? Status: The patient is seen today in routine follow-up evaluation. The patient is doing well and has no major complaints at this time. ?? Bowels: Bowels are functioning normally. There is no blood in the stool or pain with defecation.? Bladder: He has no hematuria or dysuria. He has nocturia 4-5. Flow of urination is good. He emptieshis bladder fully. Bladder urgency is controlled. The patient has no urinary incontinence or leakage. Current urinary medication(s): none. ?? Energy levels: Fair. Arthritis: at baseline . Appetite: good. ?? Radiology Impressions: The patient's PSA and a PET scan was negative on 08/01/2021. ?? Laboratory Studies:PSA: 0.1 ng/mL (07/23/21) ?? Physical Examination: The patient is a well-developed, well-nourished??Male, who is alert and oriented to person, place and time and is in no acute distress. The patient is well groomed. HEENT examination is unremarkable. The conjunctivae of the eyes and lids are within normal limits. The ears and nose are normally formed and have no scars, lesions, or masses. Neck is soft and supple with full range of movement throughout. The tracheal position is mid-line, and no masses are appreciated in the neck. The thyroid gland is not enlarged or palpable. Lymph node survey of the cervical, axillary, and inguinal regions is negative.? Lungs are clear to auscultation. There is normal respiratory effort. Heart has a regular rate and rhythm. Abdomen is soft, and without masses, tenderness, or hernias identified. There is no hepatosplenomegaly. Musculoskeletal exam is non- focal. The patient???s gait is normal. Extremities have no clubbing, cyanosis, or edema. Cranial nerves II through XII are intact. Motor and sensory examination is non-focal. The patient???s mood and affect are normal. No memory deficits are noted. ? Thank you for allowing me to care for this very pleasant individual, ? Levi Cruz MD PhD? 30??minutes were spent in the care of this patient over half of which was counseling and coordination of care. ? Vitals and Measurements Vital Signs Height: 183 cm Height Inches Conversion: 72 Weight: 111.13 kg Weight in Pounds (kg conversion): 244.5 Body Surface Area: 2.3768 m2 Body Mass Index: 33.18 kg/m2 Temperature Temporal Artery: 36.6 DegC Systolic Blood Pressure:??149 mm Hg??High Diastolic Blood Pressure:??94 mm Hg??High Peripheral Pulse Rate: 74 bpm HRA Pain Present: No Past Medical History Ongoing Anemia of chronic disease Ascending aorta dilation CAD (coronary artery disease) CKD (chronic kidney disease), stage III Elevated TSH Gall stone Gout History of endocarditis Hyperlipidemia Hypertension Hypothyroidism Large hiatal hernia Medication monitoring encounter Near syncope Persistent atrial fibrillation Prostate cancer Proteinuria S/P CABG x 1 S/P mitral valve repair S/P prostatectomy Trouble in sleeping Historical No qualifying data Past Surgical History ???Biopsy of prostate???Cardiac catheterization???cardiac stents???Prostatectomy Allergies NKA Family History Family members : Mother and Father. Heart attack: Father. Heart disease: Father. Stroke: Mother. Social History Alcohol Current some day alcohol user, 12/05/2021 Substance Abuse Never drug user, 12/05/2021 Tobacco Never smoker, Smokeless Tobacco use: Former smokeless tobacco user, quit more than 30 days ago. N/ACessation Counseling., 12/05/2021 Voice to Text Technology Disclaimer This note may contain text inserted via Dragon or other voice to text assistive technology and inspector hairspring, variances may occur. * Event Display: Consent/Registration Forms Authored Date: * Event Display: Consent/Registration Forms Authored Date: * Event Display: ROI_Correspondence * Event Display: ROI_Correspondence Authored Date: * Event Display: ROI_Correspondence * Event Display: ROI_Correspondence * Event Display: ROI_Correspondence Authored Date: * Event Display: ROI_Correspondence Authored Date: * Event Display: ROI_Correspondence Patient Care team information Care Team Personnel Name: Jada Reynaga MD Position: Physician - Cardiology Med Service: Cardiology Member Role: Specialist Physician Address: Address: [address] [place] [address] [place] [address] [place] Name: Nancy Suresh Specialist Position: Population Health Coordinator Member Role: Population Health Coordinator Name: Khoi Hendrickson Member Role: Urologist Name: Vlad Varner MD Position: AMB Physician Member Role: Specialist Physician Address: Address: [address] [place] [address] [place] [address] [place] Name: Gab Marquez M.D. Position: Physician - Infectious Disease Med Service: Med Onc Prior Auth Member Role: Infectious Disease Address: Address: [address] [place] [address] [address] [place] [address] [place] Name: Mague Farfan IT SUPPORT SPECIALIST Position: AMB IT SUPPORT SPECIALIST/PA Member Role: Nurse Practitioner Address: Address: [address] [place] [address] [place] [address] [place] Name: Yonas Clements MD Position: Physician - Electrophysiology Med Service: [place] Electrophysiology Member Role: Specialist Physician Address: Address: [address] [place] [address] [place] [address] [place] Name: Mark Sesay M.D. Position: AMB Physician Med Service: Split Billing Member Role: Specialist Physician Address: Address: [address] [place] [address] [place] [address]- Name: Mark Sesay M.D. Position: AMB Physician Med Service: Split Billing Member Role: Specialist Physician Address: Address: [address] [place], [place] [address]- Name: Darling Santiago IT SUPPORT SPECIALIST Position: AMB IT SUPPORT SPECIALIST/PA Med Service: Vascular Trucking Contractor Role: Nurse Practitioner Address: Address: [address] [place] [address] [place] Name: Kemi Daley MD Position: AMB Physician Med Service: Med Onc Prior Auth Member Role: Specialist Physician Address: Address: [address], [place] [id number] [place] Name: Lashay Newby IT SUPPORT SPECIALIST Position: AMB IT SUPPORT SPECIALIST/PA Med Service: Split Billing Member Role: Nurse Practitioner Address: Address: [address] [place] [address] [place] Name: Fritz Oreilly MD Position: AMB Physician Member Role: Specialist Physician Address: Address: [address] [place], [place] [id number] [place] Name: Gloria Soto Position: AMB IT SUPPORT SPECIALIST/PA Med Service: Vascular Trucking Contractor Role: Nurse Practitioner Address: Address: [address] [place] [address] [place] Name: Jose Martin Lomas M.D. Position: Physician - Cardiology Med Service: Split Billing Member Role: Specialist Physician Address: Address: [facility] [address] [place] [address] [place] Name: Jose Martin Lomas M.D. Position: Physician - Cardiology Med Service: Split Billing Member Role: Specialist Physician Address: Address: [facility] [address] [place] [address] [place] Name: Macy Ansari RN Position: AMB ONC Nurse Navigator Member Role: Nurse Navigator Name: Emmanuel Broussard MD Position: AMB Physician Member Role: Primary Care Physician Address: Address: [address] [place] [address] [place] Name: Kyle Parkinson IT SUPPORT SPECIALIST Position: AMB IT SUPPORT SPECIALIST/PA Med Service: Vascular Trucking Contractor Role: Nurse Practitioner Address: Address: [address] [place] [address] [place] Name: Jennie Pendleton Biztalk Software Developer Position: OP Biztalk Software Developer Merchant Tailor Member Role: Biztalk Software Developer Name: Levi Cruz M.D. Position: Physician - Radiation Oncology Med Service: Hematology/Oncology Member Role: Attending Physician Address: Address: [address] [place] [address] Care Team Related Persons Name: JL BROWER Name: ALLAN VALDES Name: FREDA REYES
--- OUTSIDE RECORDS SUMMARY | 2024-04-20 01:05 | XMS_ITS | Continuity of Care Document ---
Author Organization [facility] Address [address] [place] [id number] Care Team Providers Care Ell Teacher Name Role Phone Emmanuel Broussard Primary Care Physician [phone] Kemi Daley Unavailable Vlad Varner Unavailable Jose Martin Lomas Unavailable Mark Sesay Unavailable Fritz Oreilly Unavailable [phone] Jada Reynaga Unavailable Yonas Clements Unavailable [phone] [facility] Financial Number [id number] Date(s): 07/10/22 - 07/10/[address] [id number] Discharge Disposition: Home or Self Care Attending Physician: Emmanuel Broussard MD Admitting Physician: Emmanuel Broussard MD Referring Physician: Emmanuel Broussard MD Allergies, Adverse Reactions, Alerts No Known Allergies Assessment and Plan Future Appointments Appointment Date:07/30/2022 09:15:00 AM Scheduled Provider:Vlad Varner MD Location:[facility] Appointment Type:SLES EP Established Patient Appointment Date:09/01/2022 09:45:00 AM Scheduled Provider:Kemi Daley MD Location:[facility] Appointment Type:EA EP Established Patient Appointment Date:09/01/2022 11:45:00 AM Scheduled Provider:Jose Martin Lomas M.D. Location:[facility] Appointment Type:CCC EP Established Patient Cesilia Appointment Date:12/31/2022 10:00:00 AM Scheduled Provider:Emmanuel Broussard MD Location:[facility] Appointment Type:[facility] [place] Complete Physical Exam Immunizations Given and Recorded Vaccine Date Status Refusal Reason influenza virus vaccine, live, trivalent 05/09/21 Recorded SARS-CoV-2 mRNA (5y-11y) vaccine 05/09/21 Recorded SARS-CoV-2 (COVID-19) mRNA BNT-162b2 vax 1 07/28/20 Recorded SARS-CoV-2 (COVID-19) mRNA BNT-162b2 vax 2 07/03/20 Recorded 1Result Comment: [place], [place] 2Result Comment: [place] Medications allopurinol 100 mg oral tablet 100 mg, 1 tablet(s), Oral, bid, 180 tablet(s), 3, Route to Pharmacy Electronically, [facility] #[id number], [id number], 183, cm, 02/10/2022 1407, Height, 111.13, kg, 02/10/2022 1407, Weight Start Date: 05/06/22 Status: Ordered amLODIPine 10 mg oral tablet 10 mg, 1 tablet(s), Oral, daily, 90 tablet(s), Tablet(s), 3, 3, Route to Pharmacy Electronically, [facility] #[id number], [id number], 182.88, cm, 05/23/2021 0950, Height, 119, kg, 05/23/2021 0950, Weight Start Date: 05/23/21 Status: Ordered aspirin 81 mg oral enteric coated tablet 81 mg, 1 tablet(s), Oral, daily, Tab EC, 0 Start Date: 07/05/20 Status: Ordered atorvastatin 80 mg oral tablet 1 tablet(s), Oral, daily, 90 tablet(s), 2, Route to Pharmacy Electronically, [facility] #[id number], [id number], 182, cm, 01/14/2022 0958, Height, 116.3, kg, 01/14/2022 1002, Weight Start Date: 01/28/22 Status: Ordered cloNIDine 0.1 mg oral tablet 0.1 mg, 1 tablet(s), Oral, bid, 180 tablet(s), Tablet(s), 3, 3, Route to Pharmacy Electronically, [facility] #[id number], [id number], 183, cm, 07/01/2022 1255, Height, 117, kg, 07/01/2022 1255, Weight Start Date: 07/02/22 Stop Date: 06/27/23 Status: Ordered ezetimibe 10 mg oral tablet 1 tablet(s), Oral, daily, 30 tablet(s), 7, Route to Pharmacy Electronically, [facility] #[id number], [id number], 182, cm, 01/14/2022 0958, Height, 116.3, kg, 01/14/2022 1002, Weight Start Date: 01/28/22 Status: Ordered levothyroxine 50 mcg (0.05 mg) oral tablet 50 mcg, 1 tablet(s), Oral, daily before breakfast, 90 tablet(s), Tablet(s), 3, 3, Route to PharmacyElectronically, [facility] #[id number], [id number], 182, cm, 12/05/2021 1020, Height, 114, kg, 12/05/2021 1022, Weight Start Date: 12/10/21 Status: Ordered Lupron mg, 0 Start Date: 12/05/21 Status: Ordered Metoprolol Tartrate 50 mg oral tablet 1 tablet(s), Oral, bid, 180 tablet(s), 3, Route to Pharmacy Electronically, [facility] #[id number], [id number], 182, cm, 12/05/2021 1020, Height, 114, kg, [...] Exam Date Time Procedure Performing Provider Status 07/10/22 12:15 PM US RENAL Mague Santacruz ; Auth (Verified) Notes: (US RENAL) Reason For Exam: CKD/ DO POST VOID RESIDUAL US RENAL HISTORY: CKD/ DO POST VOID RESIDUAL FINDINGS: Increased echogenicity of the kidneys suggests medical renal disease. Right kidney measures a length of 12.9 cm the left kidney 15.6 cm. Multiple cysts within the right kidney measuring up to 5 cm. Multiple cysts, too numerous to count within the left kidney measuring up to 10 cm. No hydronephrosis or renal lithiasis. Prevoid volume of the bladder 92 cc and post void volume of the bladder 7 cc. CONCLUSION: Multiple bilateral renal cysts. RR Dictating Physician: Ghulam Briggs M.D. Releasing Physician: Ghulam Briggs M.D. Signature Electronically Authorized Authorized Date/Time: 10-JUL-2022 12:35 pm Social History Social History Type Response [...] Safety Implantable Status Assigning Authority Unknown Unknown [id number] Unknown 03/04/23 Unknown Unknown Active Unkn own Procedure Provider Procedure Date Device Type Site Mitral Valve Annuloplasty Unknown 07/11/20 Unknown Unknown Device Identifier Serial Number Lot or Batch Number Manufacturing Date Expiration Date Distinct Identification Code MRI Safety Implantable Status Assigning Authority [id number] Unknown Unknown 03/13/24 Unknown MR Candace onal [...] Note * Event Display: Authorization to Treat Authored Date: * Event Display: Authorization to Treat Authored Date: * Event Display: ROI_Correspondence * Event Display: ROI_Correspondence Authored Date: * Event Display: ROI_Correspondence * Event Display: ROI_Correspondence * Event Display: ROI_Correspondence Authored Date: * Event Display: ROI_Correspondence Authored Date: * Event Display: ROI_Correspondence US Kidney * Ghulam Briggs M.D.: VERIFY, VERIFY, PERFORM Event Display: Interpretation: Authored Date: HISTORY: CKD/ DO POST VOID RESIDUAL FINDINGS: Increased echogenicity of the kidneys suggests medical renal disease. Right kidney measures a length of 12.9 cm the left kidney 15.6 cm. Multiple cysts within the right kidney measuring up to 5 cm. Multiple cysts, too numerous to count within the left kidney measuring up to 10 cm. No hydronephrosis or renal lithiasis. Prevoid volume of the bladder 92 cc and post void volume of the bladder 7 cc. CONCLUSION: Multiple bilateral renal cysts. RR Dictating Physician: Ghulam Briggs M.D. Releasing Physician: Ghulam Briggs M.D. Signature Electronically Authorized Authorized Date/Time: 10-JUL-2022 12:35 pm Patient Care team information Care Team Personnel Name: Jada Reynaga MD Position: Physician - Cardiology Member Role: Specialist Physician Address: Address: [address] [place] [address] [address] [place] [address] [place] Name: Nancy Suresh Specialist Position: Population Health Coordinator Member Role: Population Health Coordinator Name: Khoi Hendrickson Role: Urologist Name: Vlad Varner MD Position: AMB Physician Member Role: Specialist Physician Address: Address: [address] [place] [address] [place] Name: Gab Marquez M.D. Position: Physician - Infectious Disease Member Role: Infectious Disease Address: Address: [address] [place] [address] [place] Name: Yonas Clements MD Position: Physician - Electrophysiology Member Role: Specialist Physician Address: Address: [address] [place] [address] [place] Name: Mark Sesay M.D. Position: Physician - Cardiothoracic Surgery Member Role: Specialist Physician Address: Address: [address] [facility] [address] [place], [place] [address]- Name: Darling Santiago BANQUET CAPTAIN Position: AMB BANQUET CAPTAIN/PA Member Role: Nurse Practitioner Address: Address: [address] [place] [address] [place] Name: Kemi Daley MD Position: Physician - Endocrine Member Role: Specialist Physician Address: Address: [address] [facility] [address] [place], [place] [id number] [place] Name: Lashay Newby BANQUET CAPTAIN Position: AMB BANQUET CAPTAIN/PA Member Role: Nurse Practitioner Address: Address: [address] [place] [address] [place] Name: Fritz Oreilly MD Position: Physician - Infectious Disease Member Role: Specialist Physician Address: Address: [address] [place], [place] [id number] [place] Name: Gloria Soto PLATING TANK OPERATOR APPRENTICE Position: AMB BANQUET CAPTAIN/PA Member Role: Nurse Practitioner Address: Address: [address] [place] [address] [place] Name: Jose Martin Lomas M.D. Position: Physician - Cardiology Member Role: Specialist Physician Address: Address: [facility] [address] [place] [address] [place] Name: Macy Ansari RN Position: AMB ONC Nurse Navigator Member Role: Nurse Navigator Name: Emmanuel Broussard MD Position: AMB Physician Member Role: Primary Care Physician Address: Address: [address] [place] [address] [address] Name: Jennie Pendleton Java Manager Position: OP Java Manager Healthcare Receptionist Member Role: Java Manager Name: Emmanuel Broussard MD Position: AMB Physician Med Service: Research Physicist Ell Teacher Role: Referring Physician Address: Address: [address] [place] [address] Dr [address] [place] [address] [place] Care Team Related Persons Name: JL BROWER Name: ALLAN VALDES Name: FREDA REYES
--- OUTSIDE RECORDS SUMMARY | 2024-04-20 01:05 | XMS_ITS | Continuity of Care Document ---
Author Organization [facility] Address [address] [place] [id number] Care Team Providers Care B Operator Name Role Phone Courtney Prado Primary Care Physician [phone] Encounter [facility] Financial Number [id number] Date(s): 03/11/24 - 03/11/[address] [id number] Discharge Disposition: Home or Self Care Attending Physician: Shereen Owens FIGHTER PILOT Admitting Physician: Shereen Owens FIGHTER PILOT Referring Physician: Shereen Owens FIGHTER PILOT Allergies, Adverse Reactions, Alerts No Known Allergies Assessment and Plan Future Appointments Appointment Date:03/24/2024 02:30:00 PM Scheduled Provider:Courtney Prado MD Location:[facility] Appointment Type:[facility] CPE Complete Physical Exam Appointment Date:06/01/2024 11:00:00 AM Scheduled Provider:Jeromy Perez MD Location[facility] Appointment Type:USSL Established Patient 20mins Appointment Date:09/12/2024 10:30:00 AM Scheduled Provider:Kemi Daley MD Location:[facility] Appointment Type:[facility] Established Patient Appointment Date:10/10/2024 10:30:00 AM Scheduled Provider: [facility] Appointment Type:Echocardiogram Complete Study Appointment Date:10/10/2024 11:30:00 AM Scheduled Provider:Jose Martin Lomas M.D. Location:[facility] Appointment Type:[facility] EP Established Patient Maribelder Immunizations Given and Recorded Vaccine Date Status Refusal Reason influenza virus vaccine, inactivated 02/16/23 Give n influenza virus vaccine, live, trivalent 05/09/21 Recorded SARS-CoV-2 mRNA (5y-11y) vaccine 05/09/21 Recorded SARS-CoV-2 (COVID-19) mRNA BNT-162b2 vax 1 07/28/20 Recorded SARS-CoV-2 (COVID-19) mRNA BNT-162b2 vax 2 07/03/20 Recorded 1Result Comment: [place] 2Result Comment: [place] Medications allopurinol 100 mg oral tablet 1 tablet(s), Oral, bid, 180 tablet(s), 0, Route to Pharmacy Electronically, [facility] #[id number], [id number], 182, cm, 02/25/24 13:51:00 CDT, Height, 105, kg, 02/25/24 13:51:00 CDT, Weight Start Date: 02/29/24 Status: Ordered amLODIPine 10 mg oral tablet 1 tablet(s), Oral, daily, 90 tablet(s), 0, Route to Pharmacy Electronically, [facility] #[id number], [id number], 182, cm, 02/25/24 13:51:00 CDT, Height, 105, kg, 02/25/24 13:51:00 CDT, Weight Start Date: 02/29/24 Status: Ordered Arexvy preservative-free intramuscular injection 60 mcg, 0.5 mL, IntraMuscular, Once, 0.5 mL, 0, 0, Pharmacy to administer, Route to Pharmacy Electronically, [facility] #04956, [id number], 183, cm, 09/07/23 11:29:00 CDT, Height, 109.3, kg, 09/07/23 11:29:00 CDT, Weight Start Date: 09/07/23 Status: Ordered aspirin 81 mg oral enteric coated tablet 81 mg, 1 tablet(s), Oral, daily, Tab EC, 0 Start Date: 07/05/20 Status: Ordered atorvastatin 80 mg oral tablet 1 tablet(s), Oral, daily, 90 tablet(s), 3, Route to Pharmacy Electronically, [facility] #87557, [id number], 183, cm, 02/16/23 13:04:00 CDT, Height, 110.5, kg, 02/16/23 13:04:00 CDT, Weight Start Date: 07/13/23 Status: Ordered cloNIDine 0.1 mg oral tablet 1 tablet(s), Oral, bid, 180 tablet(s), 2, 2, [id number], [id number], 183, cm, 02/16/23 13:04:00 CDT, Height, 110.5, kg, 02/16/23 13:04:00 CDT, Weight Start Date: 08/06/23 Stop Date: 05/02/24 Status: Ordered Entresto 24 mg-26 mg oral tablet 0.5 tablet(s), Oral, bid, 30 tablet(s), Tablet(s), 11, 11, [facility] to [facility] Electronically[id number], [id number], 182, cm, 02/25/24 13:51:00 CDT, Height, 105, kg, 02/25/24 13:51:00 CDT, Weight Start Date: 02/25/24 Status: Ordered ezetimibe 10 mg oral tablet 1 tablet(s), Oral, daily, 90 tablet(s), 3, Route to Pharmacy Electronically, [facility] #49579, [id number], 182, cm, 10/28/23 9:42:00 CDT, Height, 105.2, kg, 10/28/23 9:42:00 CDT, Weight Start Date: 01/07/24 Status: Ordered Gemtesa 75 mg oral tablet 75 mg, 1 tablet(s), Oral, daily, 30 tablet(s), 3, 3, Route to Pharmacy Electronically, [facility] #96809, [id number], 182, cm, 10/28/23 9:42:00 CDT, Height, 105.2,kg, 10/28/23 9:42:00 CDT, Weight Start Date: 01/14/24 Stop Date: 05/13/24 Status: Ordered levothyroxine 50 mcg (0.05 mg) oral tablet 1 tablet(s), Oral, daily before breakfast, 90 tablet(s), 0, [facility]ically[facility], [id number], 182, cm, 10/28/23 9:42:00 CDT, Height, 105.2, kg, 10/28/23 9:42:00 CDT, Weight Start Date: 12/15/23 Status: Ordered Metoprolol Tartrate 50 mg oral tablet 1 tablet(s), Oral, bid, 180 tablet(s), 3, [facility] to Pharm[facility] Electronically, [facility], [id number], 182, cm, 10/28/23 9:42:00 CDT, Height, 105.2, kg, 10/28/23 9:42:00 CDT, Weight Start Date: 11/09/23 Status: Ordered minoxidil 2.5 mg oral tablet 1 tablet(s), Oral, bid, 180 tablet(s), 0, Route to Pharmacy Electronically, [facility] #21412, [id number], 182, cm, 02/25/24 13:51:00 CDT, Height, 105, kg, 02/25/24 13:51:00 CDT, Weight Start Date: 02/25/24 Status: Ordered pantoprazole 40 mg oral delayed release tablet 40 mg, 1 tablet(s), Oral, bid before meals, 180 tablet(s), Tab EC, 0, 0, Route to Pharmacy Electronically, [facility] #82902, [id number], 182, cm, 11/24/2022 1326, Height, 106, kg, 11/23/2022 1254, Weight Start Date: 11/25/22 Stop Date: 02/23/23 Status: Ordered sucralfate 1 g/10 mL oral suspension 1 gm, 10 mL, Oral, qid, 1,200 mL, Susp, 0, 0, Route to Pharmacy Electronically, [facility] #[id number], [id number], 182, cm, 11/24/2022 1326, Height, 106, kg, [...] Exam Date Time Procedure Performing Provider Status 03/11/24 1:38 PM NM MPI NON-CARDIAC FINDINGS Antoine Tamez Nuclear Med Tech; Auth (Verified) Notes: (NM MPI NON-CARDIAC FINDINGS) Reason For Exam: systolic heart failure NM MPI NON-CARDIAC FINDINGS MYOCARDIAL PERFUSION SCAN - RADIOLOGY INTERPRETATION OF NON-CARDIAC PORTION. TECHNIQUE: Limited elssd-le-amwo, non-diagnostic axial CT images of the chest and upper abdomen were obtained for purposes of technetium 99 SPECT myocardial perfusion scintigraphy image attenuation correction. This is the radiology interpretation of the attenuation correction CT findings only. Cardiac perfusion findings are reported separately by Cardiology. Dose lowering CT technique was utilized. FINDINGS: Mild cardiac enlargement, changes of aortocoronary bypass grafting, prosthetic mitral valve and coronary artery calcifications. The ascending aorta is dilated, AP caliber 4.4 cm. No confluent lung infiltrate or mass is identified. Trace right and small-moderate left pleural effusions. Large hiatus hernia with a left paraesophageal component. Imaged upper abdominal organs are unremarkable. Incidental gallstones. Please refer to the cardiology report for full details of the nuclear medicine myocardial perfusion scan. (CPT: 66549 [id number]) . Dictating Provider: Mauricio Trivedi M.D. Releasing Physician: Mauricio Trivedi M.D. Signature Electronically Authorized Authorized Date/Time: 11-MAR-2024 02:24 pm Social History Social History Type Response [...] Safety Implantable Status Assigning Authority Unknown Unknown [id number] Unknown 03/04/23 Unknown Unknown Active Unkn own Procedure Provider Procedure Date Device Type Site Mitral Valve Annuloplasty Unknown 07/11/20 Unknown Unknown Device Identifier Serial Number Lot or Batch Number Manufacturing Date Expiration Date Distinct Identification Code MRI Safety Implantable Status Assigning Authority [id number] Unknown Unknown 03/13/24 Unknown MR Candace stephenson [...] Event Display: Authorization to Treat Authored Date: [id number] * Event Display: Authorization to Treat Authored Date: [id number] * [facility] Sap Bw Consultant: PERFORM Event Display: ROI_Correspondence Authored Date: [id number] * Event Display: ROI_Correspondence * Event Display: ROI_Correspondence Authored Date: [id number] Patient Care team information Care Team Personnel Name: Jada Reynaga MD Position: Physician - Cardiology Member Role: Specialist Physician Address: [address] [place] [address] [place] Name: Nancy Suresh Specialist Position: Population Health Coordinator Member Role: Population Health Coordinator Name: Shereen Owens FIGHTER PILOT Position: AMB FIGHTER PILOT/PA Member Role: Nurse Practitioner Address: [address] [facility] [address] [place] [address] [place] Name: Khoi Hendrickson Member Role: Urologist Name: Kenia Gregory M.D. Position: Physician - Endocrine Member Role: Agricultural Research Technologist Address: [address] [facility] [address] [place], [place] [id number] [place] Name: Vlad Varner MD Position: Physician - Electrophysiology Member Role: Specialist Physician Address: [address] [place] [address] [place] Name: Jeromy Perez MD Position: Physician - Urology Member Role: Urologist Address: [address] [place] [address] [place] Name: Gab Marquez M.D. Position: Physician - Infectious Disease Member Role: Infectious Disease Address: [address] [place] [address] [place] Name: Sheron Lamb II Position: Population Health Coordinator Member Role: Population Health Coordinator Name: Yonas Clements MD Member Role: Specialist Physician Name: Mark Sesay M.D. Position: Physician - Cardiothoracic Surgery Member Role: Specialist Physician Address: [address] [place], [place] [address]- Name: Courtney Prado MD Position: Physician - Internal Medicine Member Role: Primary Care Physician Address: [address] [facility] [address] Name: Jessica Crowe FIGHTER PILOT Position: AMB FIGHTER PILOT/PA Member Role: Nurse Practitioner Address: [address] [facility] [address] Name: Fritz Oreilly MD Position: Physician - Infectious Disease Member Role: Specialist Physician Address: [address] [facility] [address] [place], [place] [id number] [place] Name: Jose Martin Lomas M.D. Position: Physician - Cardiology Member Role: Specialist Physician Address: [facility] [address] [address] Name: Macy Ansari RN Position: AMB ONC Nurse Navigator Member Role: Nurse Navigator Care Team Related Persons Name: JL BROWER Name: ALLAN VALDES Name: FREDA REYES Insurance Providers Guarantor name: SHANON BROWN Health Plan Information #: 1 Payer: Medicare Member Number: [id number] Policy Number: NA Health Plan Information #: 2 Payer: Medicare Supplement Member Number: [id number] Policy Number: NA
--- OUTSIDE RECORDS SUMMARY | 2024-04-20 01:05 | XMS_ITS | Continuity of Care Document ---
Author Organization [facility] Address [address] [id number] Care Team Providers Care Cat Sitter Name Role Phone Courtney Prado Primary Care Physician [phone] Encounter [facility] Financial Number [id number] Date(s): 03/23/23 - 03/23/23 [facility] [address] [facility] [address], [place] [id number] Encounter Diagnosis Post herpetic neuralgia(Discharge Diagnosis) - 03/23/23 Edema of right lower extremity(Discharge Diagnosis) - 03/23/23 Discharge Disposition: Home or Self Care Attending Physician: Courtney Prado MD Allergies, Adverse Reactions, Alerts No Known Allergies Assessment and Plan Future Appointments Appointment Date:06/22/2023 11:30:00 AM Scheduled Provider:Jose Martin Lomas M.D. Location:[facility] Appointment Type:[facility] EP Established Patient Cesilia Appointment Date:09/07/2023 10:00:00 AM Scheduled Provider:Kemi Daley MD Location:[facility] Appointment Type:[facility] Established Patient Appointment Date:09/07/2023 11:15:00 AM Scheduled Provider:Courtney Prado MD Location:[facility] Appointment Type:[facility] EP Established Patient Immunizations Given and Recorded [...] 180 tablet(s), 3, Route to Pharmacy Electronically, [facility] #[id number], [id number], 183, cm, 02/10/2022 1407, Height, 111.13, kg, 02/10/2022 1407, Weight Start Date: 05/06/22 Status: Ordered amLODIPine 10 mg oral tablet 10 mg, 1 tablet(s), Oral, daily, 90 tablet(s), Tablet(s), 3, 3, Route to Pharmacy Electronically, [facility][id number], [id number], 183, cm, 07/01/2022 1255, Height, 117, kg, [...] Tablet(s), 3, 3, Route to Pharmacy Electronically, [facility] #[id number], [id number], 183, cm, 07/01/2022 1255, Height, 117, kg, 07/01/2022 1255, Weight Start Date: 07/02/22 Stop Date: 06/27/23 Status: Ordered ezetimibe 10 mg oral tablet 1 tablet(s), Oral, daily, 90 tablet(s), 3, 3, Route to Pharmacy Electronically, [facility] #[id number], [id number], 183, cm, 09/01/2022 1142, Height, 119, kg, 09/01/2022 1142, Weight Start Date: 10/14/22 Stop Date: 10/09/23 Status: Ordered gabapentin 100 mg oral capsule 100 mg, 1 capsule(s), Oral, tid, 90 capsule(s), Capsule(s), 0, 0, Route to Pharmacy Electronically,[facility] #[id number], [id number], 183, cm, 02/16/23 13:04:00 CDT, Height, 110.5, kg, 02/16/23 13:04:00 CDT, Weight Start Date: 03/23/23 Stop Date: 04/22/23 Status: Ordered levothyroxine 50 mcg (0.05 mg) oral tablet 50 mcg, 1 tablet(s), Oral, daily before breakfast, 90 tablet(s), Tablet(s), 3, 3, Route to PharmacyElectronically, [facility] #[id number], [id number], 183, cm, 09/01/2022 1142, Height, 119, kg, [...] 180 tablet(s), 2, Route to Pharmacy Electronically, [facility] #[id number], [id number], 182, cm, 11/24/22 13:26:00 CDT, Height, 106, kg, 11/23/22 12:54:00 CDT, Weight Start Date: 12/24/22 Status: Ordered MiraLax oral powder for reconstitution 1 packet(s), Oral, daily, PRN, REC Powder, 0, constipation Start Date: 08/20/20 Status: Ordered pantoprazole 40 mg oral delayed release tablet 40 mg, 1 tablet(s), Oral, bid before meals, 180 tablet(s), Tab EC, 0, 0, Route to Pharmacy Electronically, [facility] #[id number], [id number], 182, cm, 11/24/2022 1326, Height, 106, kg, 11/23/2022 1254, Weight Start Date: 11/25/22 Stop Date: 02/23/23 Status: Ordered sucralfate 1 g/10 mL oral suspension 1 gm, 10 mL, Oral, qid, 1,200 mL, Susp, 0, 0, Route to Pharmacy Electronically, [facility] #[id number], [id number], 182, cm, 11/24/2022 1326, Height, 106, kg, 11/23/2022 1254, Weight Start Date: 11/25/22 Stop Date: 12/25/22 Status: Ordered Tylenol 500 mg, Oral, [id number], PRN, 0, pain, mild Start Date: 11/23/22 [...] Range]: 1 Peripheral Pulse Rate [60-100 bpm] 55 bp m *L* (03/23/23 3:22 PM) Blood Pressure [89-139/60-90 mm Hg] 126/ 82mm Hg (03/23/23 3:22 PM) Social History Social History Type Response [...] Safety Implantable Status Assigning Authority Unknown Unknown [id number] Unknown 03/04/23 Unknown Unknown Active Unkn own Procedure Provider Procedure Date Device Type Site Mitral Valve Annuloplasty Unknown 07/11/20 Unknown Unknown Device Identifier Serial Number Lot or Batch Number Manufacturing Date Expiration Date Distinct Identification Code MRI Safety Implantable Status Assigning Authority [id number] Unknown Unknown 03/13/24 Unknown MR Maria onani [...] ROI_Correspondence * Event Display: ROI_Correspondence Authored Date: [id number] * Event Display: ROI_Correspondence * Event Display: ROI_Correspondence Internal medicine Outpatient Note * Courtney Prado MD: PERFORM Event Display: Internal Medicine Office/Clinic Note Authored Date: [id number] Patient Information Name:SHANON CHAPA Address: [address] [place] [id number] Sex:Male Date of :1945 Emergency Contact:FREDA REYES Location:[facility] [address] Registration Date and Time:03/23/2023 15:04 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 ??c/o blisters right hip x 3 weeks. ??s/p right leg pain x 1 week. History of Present Illness Mr. Chapa comes in today for an acute office visit??and his daughter accompanied??him during the visit.?? He reported that??3 weeks ago??he??broke out??in a blistery rash??in his right??buttock area??and he thought that it was from a reaction of??Lupron injection??so he did not contact??us??and he s tarted??experiencing pain in that region.?? He also noticed some swelling of his right lower leg.??On a scale of 0-10 he says that the pain in his buttock area is now??5 out of 10.?? The swelling has gone down to some extent. The rash has now scabbed off.?? He never had shingles vaccine before. Review of Systems GENERAL: No significant wt [...] or swelling or redness of joints SKIN: Rash??in right buttock area which has now scabbed off??but complains of pain??in that region : No dysuria, no incontinence,no blood in urine?? NEUROLOGICAL: No dizziness, headache or visual changes. No focal weakness PSYCHIATRIC: No depression, suicidal or homicidal thoughts, no mood swings Vitals and Measurements Vital Signs Systolic Blood Pressure: 126 mm Hg Diastolic Blood Pressure: 82 mm Hg Peripheral Pulse Rate:??55 bpm??Low Oxygen Saturation: 98 % Primary Pain Location: Lower leg Primary Pain Comments: Right HRA Pain Present: Yes Physical Exam General Examination GENERAL APPEARANCE: Overall appearance is appropriate for patient???s age,??complains of pain in right buttock area??but in no acute distress.? EYES: extra ocular muscles intact (EOMI) bilaterally, pupils, equal, round, reactive to light and accommodation (PERRLA), sclera clear.?? HEENT: Head - normocephalic/atraumatic, EARS: NOSE: Exam deferred ORAL CAVITY: Exam deferred NECK/THYROID: no carotid bruit, no jugular venous distention (JVD), no lymphadenopathy, no thyromegaly.?? CARDIOVASCULAR: regular rate and rhythm, normal S1S2, no murmurs, gallops or rubs.?? CHEST: symmetrical.?? RESPIRATORY: normal breath sounds, no wheezes, rhonchi, rales.?? GASTROINTESTINAL: soft, non-tender/non-distended, bowel sounds present.?? SKIN: Dried up??herpes zoster rash noted??on right lower??buttock??area EXTREMITIES: no clubbing, cyanosis,??1+??right??ankle edema.?? PERIPHERAL PULSES: normal (2+) bilaterally.?? LYMPH NODES: No palpable adenopathy.?? RECTAL: Deferred BACK: No spinal tenderness. MUSCULOSKELETAL: No joint pain or redness or swelling of joints. NEUROLOGIC EXAM: Alert and orientated?3, cranial nerves II-XII grossly intact,?? no motor/sensory deficit. Gait normal. PSYCHIATRIC: Normal affect, no suicidal or homicidal ideations or thoughts,?? good eye contact. Assessment/Plan 1.??Post herpetic neuralgia Prescribed gabapentin??for??pain control??for postherpetic neuralgia. 2.??Edema of right lower extremity Recommended keeping right??leg elevated??and??to use??compression stockings. Orders: gabapentin, 100 mg, 1 capsule(s), Oral, tid, 90 capsule(s), Capsule(s), 0, 0, Route to Pharmacy Electronically, [facility] #[id number], [id number], 183, cm, 02/16/23 13:04:00 CDT, Height, 110.5, kg, 02/16/23 13:04:00 CDT, Weight Follow-up??as scheduled Problem List/Past Medical History Ongoing Anemia of [...] PAF (paroxysmal atrial fibrillation) Post herpetic neuralgia Prostate cancer Proteinuria S/P CABG x 1 S/P mitral valve repair S/P prostatectomy Trouble in sleeping Historical No qualifying data Procedure/Surgical History ???Repair of diaphragmatic hiatal hernia (11/23/2022)???UPPER GI ENDOSCOPY PERFORMED (2022)???Biopsy of prostate???Cardiac catheterization???cardiac stents???Prostatectomy Medications New gabapentin (gabapentin 100 mg oral capsule)1 capsule(s) By mouth 3 times a day for 30 day(s). Refills: 0. Unchanged acetaminophen (Tylenol)500 Milligram By mouth every [...] 0. Immunizations Vaccine Date Statusinfluenza virus vaccine, inactivated [...] Event Result?? Date/Time?? Oxygen Saturation 98 % 03/23/23 15:22:00 ? Voice to Text Technology Disclaimer This note may contain text inserted via Dragon or other voice to text assistive technology and carbon sequestration plant engineer, variances may occur. Patient Care team information Care Team Personnel Name: Jada Reynaga MD Position: Physician - Cardiology Member Role: Specialist Physician Address: Address: [address] [place] [address] [place] Name: Nancy Suresh Specialist Position: Population Health Coordinator Member Role: Population Health Coordinator Name: Khoi Hendrickson Role: Urologist Name: Kenia Gregory M.D. Position: Physician - Endocrine Member Role: Farm Crops Teacher Address: Address: [address] [place], [place] [phone] [place] Name: Vlad Varner MD Position: Physician - Electrophysiology Member Role: Specialist Physician Address: Address: [address] [place] [address] [place] Name: Gab Marquez M.D. Position: Physician - Infectious Disease Member Role: Infectious Disease Address: Address: [address] [facility] [address] [place] [address] [place] Name: Sheron Lamb SPECIALIST II Position: Population Health Coordinator Member Role: Population Health Coordinator Name: Yonas Clements MD Position: Physician - Electrophysiology Member Role: Specialist Physician Address: Address: [address] [place] [address] [place] Name: Mark Sesay M.D. Position: Physician - Cardiothoracic Surgery Member Role: Specialist Physician Address: Address: [address] [facility] [place], [place] [address]- Name: Courtney Prado MD Position: Physician - Internal Medicine Member Role: Primary Care Physician Address: Address: [address] [place] [address] [place] Name: Fritz Oreilly MD Position: Physician - Infectious Disease Member Role: Specialist Physician Address: Address: [address] [facility] [address] [place], [place] [id number] [place] Name: Jose Martin Lomas M.D. Position: Physician - Cardiology Member Role: Specialist Physician Address: Address: [facility] [address] [place] [address] [place] Name: Macy Ansari RN Position: AMB ONC Nurse Navigator Member Role: Nurse Navigator Name: Courtney Prado MD Position: Physician - Internal Medicine Med Service: Diet Aid Cat Sitter Role: Attending Physician Address: Address: [address] [facility] [facility] [place] [id number] [place] Care Team Related Persons Name: JL BROWER Name: ALLAN VALDES Name: FREDA REYES
--- OUTSIDE RECORDS SUMMARY | 2024-04-20 01:05 | XMS_ITS | Continuity of Care Document ---
Author Organization [facility] Address [address] [place] [phone] Care Team Providers [employer] Name Role Phone Melvishilohreina Emmanuel Shiloh Primary Care Physician [phone] Encounter [facility] Financial Number [id number] Date(s): 11/23/22 - 11/25/[address] [id number] Encounter Diagnosis Acute upper GI bleed(Discharge Diagnosis) - 11/23/22 Acute pharyngitis(Discharge Diagnosis) - 11/23/22 Chronic kidney disease (CKD)(Discharge Diagnosis) - 11/23/22 Discharge Disposition: Home with Physician Follow-up Attending Physician: Lucy Ferrer M.D. Admitting Physician: Asha Apple DO Referring Physician: Self, Referred Allergies, Adverse Reactions, Alerts No Known Allergies Assessment and Plan Future Appointments Appointment Date:06/22/2023 11:30:00 AM Scheduled Provider:Jose Martin Lomas M.D. Location:[facility] Appointment Type:[facility] EP Established Patient Cesilia Appointment Date:09/07/2023 10:00:00 AM Scheduled Provider:Kemi Daley MD Location:[address] Appointment Type:NAWAF EP Established Patient Functional Status 11/24/22 Living Situation Home independently 11/24/22 Living Environment OT Single level home Number of Stairs Inside 10 1 Prior Bed Mobility Level Independent Prior Transfer Level Independent Prior Stair Ambulation Level Independent Ambulation Level Standby assistance Ambulation Device Utilized Wheeled walke r Weight bearing status Full weight bearin g 11/24/22 Activity Assistance Independent 1Result Comment: basement laundry Immunizations Given and Recorded Vaccine Date Status Refusal Reason influenza virus vaccine, live, trivalent 05/09/21 Recorded SARS-CoV-2 mRNA (5y-11y) vaccine 05/09/21 Recorded SARS-CoV-2 (COVID-19) mRNA BNT-162b2 vax 1 07/28/20 Recorded SARS-CoV-2 (COVID-19) mRNA BNT-162b2 vax 2 07/03/20 Recorded 1Result Comment: Pamela Fl 2Result Comment: Warren Fl Medications allopurinol 100 mg oral tablet 100 mg, 1 tablet(s), Oral, bid, 180 tablet(s), 3, Route to Pharmacy Electronically, [facility] #[id number], [id number], 183, cm, 02/10/2022 1407, Height, 111.13, kg, 02/10/2022 1407, Weight Start Date: 05/06/22 Status: Ordered amLODIPine 10 mg oral tablet 10 mg, 1 tablet(s), Oral, daily, 90 tablet(s), Tablet(s), 3, 3, Route to Pharmacy Electronically, [facility] #[id number], [id number], 183, cm, 07/01/2022 1255, Height, 117, kg, [...] Tablet(s), 3, 3, Route to Pharmacy Electronically, [facility] #[id number], [id number], 183, cm, 07/01/2022 1255, Height, 117, kg, 07/01/2022 1255, Weight Start Date: 07/02/22 Stop Date: 06/27/23 Status: Ordered ezetimibe 10 mg oral tablet 1 tablet(s), Oral, daily, 90 tablet(s), 3, 3, Route to Pharmacy Electronically, [facility] #[id number], [id number], 183, cm, 09/01/2022 1142, Height, 119, kg, 09/01/2022 1142, Weight Start Date: 10/14/22 Stop Date: 10/09/23 Status: Ordered levothyroxine 50 mcg (0.05 mg) oral tablet 50 mcg, 1 tablet(s), Oral, daily before breakfast, 90 tablet(s), Tablet(s), 3, 3, [id number], [id number], 183, cm, 09/01/2022 1142, Height, 119, kg, [...] 180 tablet(s), 3, [id number], [id number], 182, cm, 12/05/2021 1020, Height, 114, kg, 12/05/2021 1022, Weight Start Date: 12/30/21 Status: Ordered MiraLax oral powder for reconstitution 1 packet(s), Oral, daily, PRN, REC Powder, 0, constipation Start Date: 08/20/20 Status: Ordered morphine 4 mg = 1 mL, Injection, IV SLOW Push, Once, 11/23/2022 1445, Stop date 11/23/2022 1445 Notes: Slow IV over 4 to 5 minutesALWAYS Communicate Potential Side Effects:Constipation, nausea, vomiting, sleepiness, tiredness, itching, rash Start Date: 11/23/22 Stop Date: 11/23/22 Status: Completed pantoprazole 40 mg oral delayed release tablet 40 mg, 1 tablet(s), Oral, bid before meals, 180 tablet(s), Tab EC, 0, 0, Route to Pharmacy Electronically, [facility] #[id number], [id number], 182, cm, 11/24/2022 1326, Height, 106, kg, 11/23/2022 1254, Weight Start Date: 11/25/22 Stop Date: 02/23/23 Status: Ordered sucralfate 1 g/10 mL oral suspension 1 gm, 10 mL, Oral, qid, 1,200 mL, Susp, 0, 0, Route to Pharmacy Electronically, [facility] #[id number], [id number], 182, cm, 11/24/2022 1326, Height, 106, kg, 11/23/2022 1254, Weight Start Date: 11/25/22 Stop Date: 12/25/22 Status: Ordered Tylenol 500 mg, Oral, q8lvpnd, PRN, 0, pain, mild Start Date: 11/23/22 Status: Ordered Mental Status 11/25/22 Orientation_ND Oriented x4 11/24/22 Orientation Oriented x 4 11/24/22 Hearing Impairment None Vision Impairment None Problem List Condition Confirmation Course Effective Dates [...] sleeping Confirmed Active Prostate cancer Confirmed Active Medication monitoring encounter Confirmed Active Persistent atrial fibrillation Confirmed Active Proteinuria Confirmed Active Procedures Procedure Date Related Diagnosis Body Site Status Biopsy of prostate Comple mary Cardiac catheterization C ompleted cardiac stents 1 Complete d Prostatectomy Completed 2018 Results Laboratory List Name Date Basic Metabolic Profile (BMP) 11/25/22 CBC with Differential 11/25/22 Differential, Automated 11/25/22 Magnesium Level 11/25/22 CBC with Differential 11/24/22 Comprehensive Metabolic Profile 11/24/22 Differential, Automated 11/24/22 Magnesium Level 11/24/22 Lipase Level 11/23/22 Troponin-I 11/23/22 ABO and Rh Type 11/23/22 Antibody Screen 11/23/22 CBC with Differential 11/23/22 Comprehensive Metabolic Profile (CMP) Differential, Automated 11/23/22 Magnesium Level 11/23/22 Most recent to oldest [Reference Range]: 1 2 3 Albumin [3.5-5.0 g/dL] 3.6 g/dL (11/24/22 4:59 AM) 4.2 g/dL (11/23/22 2:05 PM) Alk Phos [38-126 U/L] 119 U/L (11/24/22 4:59 AM) 141 U/L *H* (11/23/22 2:05 PM) BUN [9-20 mg/dL] 42 mg/dL *H* (11/25/22 5:35 AM) 41 mg/dL *H* (11/24/22 4:59 AM) 39 mg/dL *H* (11/23/22 2:05 PM) Calcium [8.4-10.2 mg/dL] 9.1 mg/dL (11/25/22 5:35 AM) 9.7 mg/dL (11/24/22 4:59 AM) 10.3 mg/dL *H* (11/23/22 2:05 PM) Chloride [98-107 mmol/L] 102 mmol/L (11/25/22 5:35 AM) 101 mmol/L (11/24/22 4:59 AM) 97 mmol/L *L* (11/23/22 2:05 PM) CO2 [22-30 mmol/L] 21 mmol/L *L* (11/25/22 5:35 AM) 21 mmol/L *L* (11/24/22 4:59 AM) 23 mmol/L (11/23/22 2:05 PM) Glucose [74-106 mg/dL] 111 mg/dL *H* (11/25/22 5:35 AM) 136 mg/dL *H* (11/24/22 4:59 AM) 138 mg/dL *H* (11/23/22 2:05 PM) Lipase. [23-300 U/L] 120 U/L (11/23/22 6:32 PM) Magnesium [1.6-2.6 mg/dL] 2.3 mg/dL (11/25/22 5:35 AM) 1.7 mg/dL (11/24/22 4:59 AM) 1.8 mg/dL (11/23/22 2:05 PM) Potassium [3.5-4.9 mmol/L] 3.3 mmol/L *L* (11/25/22 5:35 AM) 3.8 mmol/L (11/24/22 4:59 AM) 3.5 mmol/L (11/23/22 2:05 PM) Sodium [137-145 mmol/L] 136 mmol/L *L* (11/25/22 5:35 AM) 133 mmol/L *L* (11/24/22 4:59 AM) 133 mmol/L *L* (11/23/22 2:05 PM) Protein, Total [6.5-8.6 g/dL] 6.4 g/dL *L* (11/24/22 4:59 AM) 7.4 g/dL (11/23/22 2:05 PM) Troponin I 0.04 ng/mL (11/23/22 6:32 PM) Baso # [0.0-0.2 K/uL] 0.0 K/uL (11/25/22 5:35 AM) 0.0 K/uL (11/24/22 4:59 AM) 0.0 K/uL (11/23/22 2:05 PM) Eos # [0.0-0.7 K/uL] 0.0 K/uL (11/25/22 5:35 AM) 0.0 K/uL (11/24/22 4:59 AM) 0.0 K/uL (11/23/22 2:05 PM) Hematocrit [40.0-48.0 %] 34.9 % *L* (11/25/22 5:35 AM) 37.4 % *L* (11/24/22 4:59 AM) 41.6 % (11/23/22 2:05 PM) Lymph % 14 % (11/25/22 5:35 AM) 9 % (11/24/22 4:59 AM) 7 % (11/23/22 2:05 PM) Lymph # [0.7-4.5 K/uL] 0.9 K/uL (11/25/22 5:35 AM) 0.7 K/uL (11/24/22 4:59 AM) 0.8 K/uL (11/23/22 2:05 PM) MCHC [31.5-35.5 g/dL] 34.4 g/dL (11/25/22 5:35 AM) 34.5 g/dL (11/24/22 4:59 AM) 35.1 g/dL (11/23/22 2:05 PM) MCH [27.2-32.6 pg] 29.0 pg (11/25/22 5:35 AM) 28.5 pg (11/24/22 4:59 AM) 29.3 pg (11/23/22 2:05 PM) MCV [82.0-99.0 fL] 84.3 fL (11/25/22 5:35 AM) 82.7 fL (11/24/22 4:59 AM) 83.5 fL (11/23/22 2:05 PM) Martin # [0.1-1.3 K/uL] 0.5 K/uL (11/25/22 5:35 AM) 0.4 K/uL (11/24/22 4:59 AM) 0.8 K/uL (11/23/22 2:05 PM) MPV [9.3-12.4 fL] 10.7 fL (11/25/22 5:35 AM) 10.5 fL (11/24/22 4:59 AM) 10.1 fL (11/23/22 2:05 PM) Neutro # [1.9-7.0 K/uL] 4.9 K/uL (11/25/22 5:35 AM) 6.4 K/uL (11/24/22 4:59 AM) 8.9 K/uL *H* (11/23/22 2:05 PM) Platelet [140-350 K/uL] 190 K/uL (11/25/22 5:35 AM) 212 K/uL (11/24/22 4:59 AM) 235 K/uL (11/23/22 2:05 PM) RBC [4.50-5.40 M/uL] 4.14 M/uL *L* (11/25/22 5:35 AM) 4.52 M/uL (11/24/22 4:59 AM) 4.98 M/uL (11/23/22 2:05 PM) RDW [11.5-14.5 %] 14.2 % (11/25/22 5:35 AM) 13.9 % (11/24/22 4:59 AM) 14.2 % (11/23/22 2:05 PM) WBC [4.3-10.0 K/uL] 6.4 K/uL (11/25/22 5:35 AM) 7.5 K/uL (11/24/22 4:59 AM) 10.5 K/uL *H* (11/23/22 2:05 PM) Neutro % 76 % (11/25/22 5:35 AM) 85 % (11/24/22 4:59 AM) 84 % (11/23/22 2:05 PM) Martin % 8 % (11/25/22 5:35 AM) 5 % (11/24/22 4:59 AM) 7 % (11/23/22 2:05 PM) Eos % 0 % (11/25/22 5:35 AM) 0 % (11/24/22 4:59 AM) 0 % (11/23/22 2:05 PM) Baso % 0 % (11/25/22 5:35 AM) 0 % (11/24/22 4:59 AM) 0 % (11/23/22 2:05 PM) Nucleated RBCs [0-0 %] 0 % (11/25/22 5:35 AM) 0 % (11/24/22 4:59 AM) 0 % (11/23/22 2:05 PM) AST [14-54 U/L] 31 U/L (11/24/22 4:59 AM) 41 U/L (11/23/22 2:05 PM) Bilirubin, Total [0.2-1.3 mg/dL] 0.7 mg/dL (11/24/22 4:59 AM) 0.8 mg/dL (11/23/22 2:05 PM) Creatinine [0.70-1.30 mg/dL] 1.84 mg/dL *H* (11/25/22 5:35 AM) 1.77 mg/dL *H* (11/24/22 4:59 AM) 1.84 mg/dL *H* (11/23/22 2:05 PM) Hemoglobin [13.6-16.5 g/dL] 12.0 g/dL *L* (11/25/22 5:35 AM) 12.9 g/dL *L* (11/24/22 4:59 AM) 14.6 g/dL (11/23/22 2:05 PM) eGFR(CKD-EPI) [>=90 mL/min/1.73m2] 37 mL/min/1.73m2 *L* (11/25/22 5:35 AM) 39 mL/min/1.73m2 *L* (11/24/22 4:59 AM) 37 mL/min/1.73m2 *L* (11/23/22 2:05 PM) eCrCl(C-Gault) 0.5 mL/min/kg (11/25/22 5:35 AM) 0.5 mL/min/kg (11/24/22 4:59 AM) 0.5 mL/min/kg (11/23/22 2:05 PM) Immature Gran % [0.0-0.5 %] 0.5 % (11/25/22 5:35 AM) 0.3 % (11/24/22 4:59 AM) 0.4 % (11/23/22 2:05 PM) Differential Type Automated (11/25/22 5:35 AM) Automated (11/24/22 4:59 AM) Automated (11/23/22 2:05 PM) ABO/Rh A POS *Unknown* (11/23/22 2:13 PM) Antibody Screen Negative (11/23/22 2:13 PM) Anion Gap [7-16 mmol/L] 13 mmol/L (11/25/22 5:35 AM) 11 mmol/L (11/24/22 4:59 AM) 13 mmol/L (11/23/22 2:05 PM) ALT [<=50 U/L] 19 U/L (11/24/22 4:59 AM) 25 U/L (11/23/22 2:05 PM) Radiology Reports * Exam Date Time Procedure Performing Provider Status 11/23/22 2:12 PM CHEST SINGLE VIEW Dawna Noble Chemistry Technician; Auth (Verified) Notes: (CHEST SINGLE VIEW) Reason For Exam: dyspnea CHEST SINGLE VIEW EXAM: CHEST X-RAY - SINGLE VIEW HISTORY: dyspnea COMPARISON: 08/15/2020 FINDINGS: Changes of median sternotomy, cardiac valve replacement, and atrial appendage closure device placement noted. There is stable cardiac enlargement. There is a large hiatal hernia There is no acute consolidating infiltrate, effusion or pneumothorax. IMPRESSION: Stable cardiac enlargement and postoperative changes. Large hiatal hernia. No acute pulmonary infiltrate or edema. . Dictating Physician: Georges Carolina MD Releasing Physician: Georges Carolina MD Signature Electronically Authorized Authorized Date/Time: 23-NOV-2022 02:16 pm Vital Signs Most recent to oldest [Reference Range]: 1 2 3 Temperature Oral [35.8-37.3 DegC] 36.8 DegC (11/24/22 7:59 AM) Temperature Temporal Artery [35.8-38 DegC] 36.5 DegC (11/25/22 1:39 PM) 36.5 DegC (11/25/22 1:32 PM) 36.3 DegC (11/25/22 8:43 AM) Peripheral Pulse Rate [60-100 bpm] 67 bpm (11/25/22 1:39 PM) 67 bpm (11/25/22 1:32 PM) 53 bpm *L* (11/25/22 8:43 AM) Respiratory Rate [14-22 br/min] 16 br/min (11/25/22 1:39 PM) 16 br/min (11/25/22 1:32 PM) 16 br/min (11/25/22 8:43 AM) Blood Pressure [89-139/60-90 mm Hg] 142/94mm Hg *H* (11/25/22 1:39 PM) 142/94mm Hg *H* (11/25/22 1:32 PM) 141/77mm Hg *H* (11/25/22 8:43 AM) Oxygen Therapy Room air (11/25/22 1:39 PM) Room air (11/25/22 1:32 PM) Room air (11/25/22 8:43 AM) Oxygen Flow Rate 0 L/min (11/24/22 8:10 AM) Height 182 cm (11/24/22 9:42 AM) 182 cm (11/23/22 12:50 PM) Weight 106 kg (11/23/22 12:50 PM) Social History Social History Type Response [...] Safety Implantable Status Assigning Authority Unknown Unknown [id number] Unknown 03/04/23 Unknown Unknown Active Unkn own Procedure Provider Procedure Date Device Type Site Mitral Valve Annuloplasty Unknown 07/11/20 Unknown Unknown Device Identifier Serial Number Lot or Batch Number Manufacturing Date Expiration Date Distinct Identification Code MRI Safety Implantable Status Assigning Authority [id number] Unknown Unknown 03/13/24 Unknown MR Candace stephenson Active GS1 Hospital Discharge Instructions Patient Education 11/25/2022 13:19:59 Chronic Kidney Disease (CKD) Chronic Kidney Disease (CKD)?? The role of the kidneys is to remove waste products and extra water from the blood.??When the kidneys don't work as they should, waste products start to build up in the blood. This is called chronic kidney disease (CKD). CKD means that you have kidney damage or a decrease in kidney function lastingat least 3 months. CKD allows extra water, waste, and toxins to build up in the body. This can eventually become life-threatening. You might need dialysis or a kidney transplant to stay alive. This most severe form is called end stage renal disease. Diabetes is the leading causes of chronic renal failure. Other causes include high blood pressure, hardening of the arteries (atherosclerosis), lupus, inflammation of the blood vessels (vasculitis), and past viral or bacterial infections. Certain huwy-hqv-vyfdrri pain medicines can cause renal failure when taken often over a long period of time. These include aspirin, ibuprofen, and related anti-inflammatory medicines called NSAIDs (nonsteroidal anti- inflammatory drugs). Home care The following guidelines will help you care for yourself at home: ???If you have diabetes, talk??with your healthcare provider about keeping your blood sugar under control. Ask if you need to make and changes to your diet, lifestyle, or medicines. ???If you have high blood pressure: Moe prescribed medicine to lower your blood pressure to the recommended goal of less than 130/80. oStart a regular exercise program that you enjoy.??Check with your healthcare provider to be sure your planned exercise program is right for you. oEat less salt (sodium).??Your healthcare provider can tell you how much salt per day is safe for you. ???If you are overweight, talk??with your??healthcare provider??about a weight loss plan. ???If you smoke, you must quit. Smoking makes kidney disease worse and puts you at risk for developing other serious illnesses.??Talk??with your healthcare provider about ways to help you quit.?? Formore information, visit the following links: owww.smokefree.gov/sites/default/files/pdf/pdwhcsxj-ipd-pvl-accessible.pdf owww.smokefree.gov owww.cancer.org/healthy/stayawayfromtobacco/guidetoquittingsmoking/ ???Most people with??CKD need to follow a special diet.?? Be sure you understand yours. In general,you will need to limit protein, salt, potassium, and phosphorus.??You also need to limit how much fluid you drink.?CKD is a risk factor for heart disease. Talk??with your healthcare provider about any other riskfactors you might have and what you can do to lessen them. ???Talk??with your healthcare provider about any medicines you are taking to find out if they need to be reduced or stopped. ???For your own safety, check with your doctor before taking any medicines or supplements. Don't use the following kwof-tww-uwhwlkl medicines. Or consult your healthcare provider before using them: oAspirin and NSAIDs such as ibuprofen or naproxen. Using acetaminophen for fever or pain is OK. oLaxatives and antacids containing magnesium or aluminum oFleet or phospho soda enemas containing phosphorus oCertain stomach acid-blocking medicine such as cimetidine or ranitidine?? oDecongestants containing pseudoephedrine?? oHerbal supplements Follow-up care Follow up with your healthcare provider, or as advised. Contact one of the following for more information: ???[place] [employer] Patients www.aakp.org ???National Kidney Foundation www.kidney.org ???[place] www.kidneyfund.org ???National Kidney Disease Education Program www.nkdep.nih.gov If an X-ray, ECG (cardiogram), or other diagnostic test was taken, you will be told of any new findings that may affect your care. Call 911 Call 911 if you have any of the following: ???Severe weakness, dizziness, fainting, drowsiness, or confusion ???Chest pain or shortness of breath ???Heart beating fast, slow, or irregularly When to seek medical advice Call your healthcare provider right away if any of these occur: ???Nausea or vomiting ???Fever??of 100.4??F (38??C) or higher, or as directed by your healthcare provider ???Unexpected weight gain or swelling in the legs, ankles, or around the eyes ???Decrease or absent urine output ???New symptoms or symptoms that get worse ?? 5789-4635 [employer]. All rights reserved. This information is not intended as a substitute for professional medical care. Always follow your healthcare professional's instructions. Goals Prevent Readmission Through Ongoing Care Managem [...] Date:05/28/20 End Date: Status:Met Progression:Met Note * Chely Crowder RN Mgr.: PERFORM Event Display: SS Discharge Plan/Outcomes-Text Authored Date: [id number] Social Service Discharge Plan/Outcomes Entered On: 11/25/2022 14:45 CDT Performed On: 11/25/2022 14:45 CDT by hCely Crowder RN Mgr. Without Services Discharged without services to : Home Chely Crowder RN Mgr. - 11/25/2022 14:45 CDT Discharge Transportation Transportation from Hospital : Family Car Chley Crowder RN Mgr. - 11/25/2022 14:45 CDT Discharge Disposition Discharge Disposition : Home without services to Home, Residential or Apartment () Chely Crowder RN Mgr. - 11/25/2022 14:45 CDT * Asha Mcintyre V RN: PERFORM Event Display: Vital Signs at Discharge - Text Authored Date: [id number] Vital Signs at Discharge Entered On: 11/25/2022 13:39 CDT Performed On: 11/25/2022 13:39 CDT by Asha Mcintyre RN Vital Signs Temperature Temporal Artery : 36.5 DegC(Converted to: 97.7 DegF) Peripheral Pulse Rate : 67 bpm Respiratory Rate : 16 br/min Systolic Blood Pressure : 142 mm Hg (H) Diastolic Blood Pressure : 94 mm Hg (H) Oxygen Therapy : Room air Oxygen Saturation : 100 % Asha Mcintyre RN - 11/25/2022 13:39 CDT * Asha Mcintyre RN: PERFORM Event Display: Nursing Discharge Instructions - Text Authored Date: [id number] Nursing Discharge Instructions Entered On: 11/25/2022 13:19 CDT Performed On: 11/25/2022 13:18 CDT by Asha Mcintyre RN Patient Discharge Location Discharge Location IP : Home Discharge Location IP Home : Yes Fetsch, Asha V RN - 11/25/2022 13:18 CDT Home Discharge Instructions Inpatient/Observation Instructions : After you leave the hospital, you may call the Nursing Unit within 24 hours of your discharge if you have any questions about these instructions. If any medical problems occur or your symptoms get worse, call your doctor immediately. Inpatient/Observation Instructions Freetext : After you leave the hospital, you may call the Nursing Unit within 24 hours of your discharge if you have any questions about these instructions. In any medical problems occur or your systems get worse, or you have questions, call your doctor immediately Valuables Returned to Patient : Not applicable Patient Home Medications Returned : No home medications Nursing Unit Wound Measured at Discharge : N/A Activity After Discharge : Resume normal activities as tolerated Diet After Discharge : Other: soft, easily digested foods with low fiber for the next few days, transition to regular diet over the next week Respiratory Therapy After Discharge : Not applicable Incision/Wound Care After Discharge : Not applicable Discharge Medication Planning : Discharge Medication Information provided, Medication Side Effects Information explained and provided, Ability to obtain prescribed medication confirmed Asha Mcintyre RN - 11/25/2022 13:18 CDT * Chely Crowder RN Mgr.: PERFORM Event Display: Transition Planning Ongoing - Text Authored Date: Transition Planning Ongoing Assessment Entered On: 11/25/2022 11:26 CDT Performed On: 11/25/2022 11:23 CDT by Chely Crowder RN Mgr. Discharge Planning Daily Note Discharge Arrangements : Patient Post-Acute Information Patient Name: SHANON CHAPA Gender: Male : [birth year] Age: 76 Years No Post-Acute Placement(s) Listed No Post-Acute Service(s) Listed Anticipated Discharge Needs RTF : DISCHARGE PLAN/NEEDS:No discharge data available. EQUIPMENT/TREATMENT NEEDS:No discharge data available. Chely Crowder RN Mgr. 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 and HLD. 11/23/22 Admitted for sore throat, painful swallowing and nausea vomiting X 3 days RN TANISHA met in room at bedside with pt. He stated he had EGD yesterday and he feels so much better and MD is thinking he can leave today. Pt also stated he was able to tolerate breakfast this am too. Discharge plan- [facility] D/C today no needs. No equipment needs Family to transport home at D/C Contacts- Rakel woo @ [phone] CrowderChely galaviz RN Mgr. - 11/25/2022 11:23 CDT * Lele Angeles PTA: PERFORM Event Display: PT Cancellation Note Authored Date: [id number] PT Cancellation Note Entered On: 11/25/2022 08:21 CDT Performed On: 11/25/2022 08:21 CDT by Lele Angeles PTA PT Cancellation Physical Therapy Cancellation Status : Treatment session cancelled this attempt. Therapy Services Cancel/Hold Reason : Other: Pt. denies need for PT, is going home soon with no concerns. Lele Angeles PTA - 11/25/2022 08:21 CDT * Event Display: GI Lab Nursing/Anesthesia Notes * Event Display: GI Lab Nursing/Anesthesia Notes * Ted Mcintosh MD: PERFORM Event Display: Esophagoscopy Authored Date: [id number] [facility] Endoscopy Department Patient Name: Shanon Chapa Admit Type: Inpatient Room: [facility] Gender: Male Attending MD: TED MCINTOSH , Procedure Date No Time: 11/24/2022 Date of : 1945 Referring MD: EMMANUEL STEVENS MD Procedure: Upper GI endoscopy Indications: Odynophagia, Coffee-ground emesis Impression: - LA Grade D reflux esophagitis - cause of recent bleeding. Biopsied. - Mild Schatzki ring. - Medium-sized hiatal hernia. - Normal stomach. - Normal examined duodenum. Recommendation: - Await pathology results. - Use Protonix (pantoprazole) 40 mg PO BID indefinitely. - Use sucralfate tablets 1 gram PO QID for 1 month. - Repeat upper endoscopy in 3 months to check healing. - The findings and recommendations were discussed with the patient and their family. Providers: TED MCINTOSH Medicines: Lidocaine IV 60 mgs, Propofol (Diprivan) IV 150 mgs Complications: No immediate complications. Estimated blood loss: Minimal. Estimated Blood Loss: Estimated blood loss was minimal. Procedure: Pre-Anesthesia Assessment: - ASA Grade Assessment: III - A patient with severe systemic disease. After obtaining informed consent, the endoscope was passed under direct vision. Throughout the procedure, the patient's blood pressure, pulse, and oxygen saturations were monitored continuously. The adult upper endoscope was introduced through the mouth, and advanced to the second part of duodenum. Findings: LA Grade D (one or more mucosal breaks involving at least 75% of esophageal circumference) esophagitis with no bleeding was found 29 to 35 cm from the incisors. Biopsies were taken with a cold forceps for histology. A mild Schatzki ring was found in the lower third of the esophagus. A medium-sized hiatal hernia was present. The entire examined stomach was normal. The examined duodenum was normal. TED MCINTOSH, 11/24/2022 4:39:48 PM Electronically authenticated. Number of Addenda: 0 Note Initiated On: 11/24/2022 4:17 PM Procedure Code(s): --- Professional --- 37896 Diagnosis Code(s): --- Professional --- K92.0 R13.10 K44.9 K22.2 K21.00 CPT copyright 2020 [employer]. All rights reserved. * Event Display: Esophagoscopy Authored Date: [id number] * Chely Crowder RN Mgr.: PERFORM Event Display: Transition Planning Initial - Text Authored Date: [id number] Transition Planning Initial Assessment Entered On: 11/24/2022 13:04 CDT Performed On: 11/24/2022 12:51 CDT by Chely Crowder RN Mgr. Home Environment Living Situation : Home independently Chely Crowder RN Mgr. 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 and HLD. 11/23/22 Admitted for sore throat, painful swallowing and nausea vomiting X 3 days SAUMYA GARAY met in room with pt at bedside. Pt A&OX4. Pt lives alone in a uniplx with a baement. 1 stepto enter the home. He uses no assistive devices for ambulation, nor oxygen or CPAP at home. Pt is very independent with ADL's, etc. still drives. Pt has 3 daughters who live around the area and are helpful with his care if he needs anything. Pt receives his treatments every 3 months and his last one was September 30. The sore throat and painful swallowing pt states could be side effect from treatments, awaiting MD treatment plan. Discharge plan- Lilliam no needs when stable for D/C No equipment needs Family to transport home at D/C Contacts- Rakel daughter @ [phone] Chely Crowder RN Mgr. - 11/24/2022 12:51 CDT * David Hopkins: PERFORM Event Display: Spiritual Assessment and Care Plan -Text Authored Date: [id number] Spiritual Assessment and Care Plan Entered On: 11/24/2022 12:37 CDT Performed On: 11/24/2022 12:34 CDT by David Hopkins Spiritual Assessment Visited With : Other: see SA dated 11-23 (duplicate) Spiritual Concern Related To : Illness/hospitalization Deloris Group/Denomination : Non-sabianism Current Support System : Family, Agency/institution David Hopkins - 11/24/2022 12:34 CDT * David Hopkins: PERFORM Event Display: Spiritual Assessment and Care Plan -Text Authored Date: [id number] Spiritual Assessment and Care Plan Entered On: 11/24/2022 12:34 CDT Performed On: 11/24/2022 12:31 CDT by David Hopkins Spiritual Assessment Type of Visit : Initial Visited With : Patient, Left card with contact information Spiritual Referral Source : Cerner referral Spiritual Concern Related To : Illness/hospitalization Deloris Group/Denomination : Non-sabianism Current Support System : Family, Agency/institution Spiritual/Mormon Issues : No apparent evangelical/spiritual concern Spiritual Assessment/Care Plan : Initial Future Visits Requested : Follow-up as needed David Hopkins - 11/24/2022 12:31 CDT Spiritual Themes Identified Consolations Patient is Experiencing : Encouraged, Grateful/Thankful Desolations Patient/Family is Experiencing : Concerned Dynamics/Issues Patient Engaging : Prayer, Mormon/spiritual practices, Support David Hopkins - 11/24/2022 12:31 CDT Care Plan Interventions - Facilitate : Discovery/verbalization of experience, Engagement of empathy and support, Exploration of sources of comfort/strength, Prayer, Use of pastoral care as a resource Desired Outcomes - Increased : Awareness/expression of experience, Sense of feeling heard/emotionally affirmed, Sense of comfort/strength, Sense of union/connection with the Sacred, Sense of support/connectedness David Hopkins - 11/24/2022 12:31 CDT * Kenia Hou RD, LD, [facility]: PERFORM Event Display: Nutrition Assessment and Plan - Text Authored Date: [id number] Nutrition Assessment and Plan Entered On: 11/24/2022 09:47 CDT Performed On: 11/24/2022 09:42 CDT by [address]ia Hou [address], LD, [facility] Nutrition Activity Procedure Today : Yes Type of Nutrition Activity w/ Procedure : 2 Nutrition Assessment w/Procedure Kenia Hou RD, LD [facility] - 11/24/2022 13:50 CDT Dietitian Visit Reason : Initial visit Date Nutritional Assessment Completed : 11/24/2022 09:[address], LD, [facility] - 11/24/2022 09:42 CDT Nutrition Intervention/Prescription Nutrition Orders : Diet - Clear Liquid - 11/23/2022 1752 Diet - NPO after midnight - 11/24/2022 0001 Diet - NPO after midnight - 11/24/2022 0001 Nutrition Order Action : Continue current nutrition order Coordination of Nutrition Care : Collaboration/referral to other providers Nutrition Recommendations : NPO Kenia Hou RD, LD, [facility] - 11/24/2022 13:50 CDT Pertinent Medical Data Pertinent Medications : allopurinol, amlodipine, atorvastatin, clonidine, ezetimibe, levothyroxine,metoprolol, protonix Pertinent Lab Data : Sodium: 133 Potassium: 3.8 BUN: 41 Creatinine: 1.77 Glucose: 136 Magnesium: 1.[address], LD, [facility] - 11/24/2022 09:52 CDT Current Medical Problems : Sore throat Odynophagia Hematemesis/coffee-ground emesis-MW tear vs esophagitis vs manuel ulcer vs AVM vs PUD. his n/v intermittently could be due to lupron shots Nausea/vomiting Kenia Hou RD, LD, [facility] - 11/24/2022 09:51 CDT Pertinent History : Anemia of chronic disease, Ascending aorta dilation, CAD (coronary artery disease) -S/P CABG x 1 -S/P mitral valve repair CKD (chronic kidney disease), stage III, cholelithiasis, Gout History of endocarditis, Hypercalcemia, Hyperlipidemia, Hypertension, Hypothyroidism Large hiatal hernia-GERD , Near syncope, Persistent atrial fibrillation Prostate cancer-S/P prostatectomy-radiotherapy (currently on adjuvant deprivation therapy with leuprolide), Proteinuria, Trouble in sleeping Kenia Hou RD, LD, [facility] - 11/24/2022 09:50 CDT Anthropometric Measurements Height : 182 cm(Converted to: 6 ft 0 inch(es), 71.65 inch(es)) Weight at Admission : 106 kg(Converted to: 3,739.040 ounce, 233.690 pound(s)) Last Documented Height/Weight/BMI : Most Recent Height/Length: 182cm 11/23/2022 12:50 Weight: 106kg 11/23/2022 12:50 BMI: 32kg/m2 11/23/2022 12:50 [place] Body Weight (IBW) : 80.91 kg(Converted to: 2,854.02 ounce, 178.38 pound(s)) Usual Weight : 117 kg(Converted to: 4,127.054 ounce, 257.941 pound(s)) (Comment: to 119 kg approximately per EMR [Kenia Hou RD, LD, [facility] - 11/24/2022 13:26 CDT] ) Other Anthropometric Data : Weight: 119 kg (09/01/22)-11% weight loss Weight: 116.3 kg (01/14/22)- 9% weight loss Weight: 111.13 kg (02/10/22) Weight: 117 kg (07/01/22) approximate UBW per pt is 115.6 Anthropometric Characteristics : Obesity-Class 1 (BMI 30-34.9) Kenia Hou RD, LD, [facility] 11/24/2022 13:26 CDT Nutrition Focused Physical Assessment Edema-Physical Findings : none Skin Condition per Record : intact GI Assessment : BM 11/[address], LD, [facility] 11/24/2022 13:47 CDT Physical Appearance : Obese Kenia Hou RD, LD, [facility] 11/24/2022 13:26 CDT Nutrition Intake IV Fluids : received a bolus of 1 L of NS Kenia Hou RD, LD, [facility] 11/24/2022 13:50 CDT Appetite : Other: NPO Kenia Hou RD, LD, [facility] 11/24/2022 13:47 CDT Estimated Nutrition Requirements Estimated Energy Needs : 2,100 Kcal/day Calculation for Energy Assessment : 20 Kcal/kg Estimated Protein Needs : 100 gm Calculation for Protein Assessment : 1.2g/kg Weight Assessed for Energy Needs : Admission weight Weight Assessed for Protein Needs : [place] weight Kenia Hou RD, LD, [facility] 11/24/2022 13:50 CDT Nutrition Assessment Malnutrition Clinical Characteristics : </= 50% estimated energy requirement >/= 5 days, <75% estimated energy requirement >/= 3 months Nutrition Designation : Risk for malnutrition noted Nutrition Designation Value : 0 Nutrition Assessment : Pt has been eating less for the past week indicating his throat hurt begining about Thursday and then was having issues at time with vomiting and abdominal discomfort so eating a lot then and also eating less with since June when his Lupon treatments were ramped up. He hasbeen losing weight as well but the amounts are not signficant for malnutrition. He beleives he may have lost about 10# in the past week which would be ~4% weight loss (so significant if his hydrated weight indicates this); will ask for reweight. Will monitor results of his EGD and then intervene once po is started. He would be agreeable to trial of Ensure. Kenia Hou RD, LD, [facility] - 11/24/2022 13:50 CDT Monitoring/Evaluation Nutrition Monitoring/Evaluation Comments : Diet intiation Finding of GI work up Throat irritation and complaints of difficulty with swallow- diet tolerance Medical course Lab trends Serial weights Nutrition Follow-Up Needed : Yes Days Until Dietitian Follow-Up : [address], LD, [facility] - 11/24/2022 13:50 CDT * Umu Harris PT: PERFORM Event Display: Physical Therapy Evaluation - Text Authored Date: [id number] Physical Therapy Evaluation Entered On: 11/24/2022 08:11 CDT Performed On: 11/24/2022 08:10 CDT by Umu Harris PT Mobility Bed Mobility : Supine to sit, Standby assist Transfers : Sit to Stand, Standby assist Transfer Comments : pushes up from the bed for support with initial stand Ambulation Level : Standby assistance Gait Training Distance : 200 ft (Comment: x2 [Umu Harris PT - 11/24/2022 12:40 CDT] ) Ambulation Device Utilized : Wheeled walker Comments Regarding GAIT : Reciprocal gait sequence with minimal trunk sway throughout, wide base ofsupport, foot flat Oz on contact, slower but steady kwadwo. Umu Harris PT - 11/24/2022 12:40 CDT Weight Bearing Status : Full weight bearing Umu Harris PT - 11/24/2022 08:10 CDT AM-PAC Basic Mobility AM-PAC Supine To Sidelying, No Rails : 4: None AM-PAC Supine To Sit, No Rails : 3: A Little AM-PAC Bed To Chair/WC Transfer : 3: A Little AM-PAC Standing From a Chair Using UEs : 3: A Little AM-PAC Walk in Hospital Room : 3: A Little AM-PAC Climbing 3-5 Steps with Railing : 3: A Little AM-PAC, Basic Mobility Raw Score : 19 Umu Harris PT - 11/24/2022 12:40 CDT DC Recommendations PT Discharge Recommendation : No skilled Physical Therapy needed upon discharge Umu Harris PT - 11/24/2022 12:40 CDT Education Topics : Ambulation, Bed mobility, Need for staff assist for safety with mobility, Physical Therapyplan of care, Transfers Barriers to Learning : Acuity of illness Individuals Taught : Patient Teaching Method : Explanation Assessment/Outcome Evaluation : Needs practice/supervision, Returns demonstrations correctly, Verbalizes understanding Therapy Handouts Issued-PT : PT Introduction Umu Harris PT - 11/24/2022 12:40 CDT Assessment PT Treatment Response : Patient received awake in bed, awake, and very pleasant. States he feels alright today and awaiting to talk to his doctors about his care/health. Reports he has been able to get to the bathroom on his own as tolerated. Agreeable to PT eval, SBA with all mobility and ambulated 200 feet x2 with no device use. Did exhibit mild trunk sway and weakness from baseline, however overall hopes to get better before going home. Anticipate no PT needs at discharge. Mobility Limited By : Weakness Umu Harris PT - 11/24/2022 12:40 CDT Rehabilitation Potential : Good Justification for Skilled PT Services : Patient would benefit from skilled PT to increase safety and decrease dependence in functional mobility, Patient would benefit from skilled PT to address ROM, strength, and/or balance in preparation for mobility training Umu Harris PT - 11/24/2022 11:51 CDT Goals PT Patient/Caregiver Goal : To get better and go home PT Bed Mobility Goal : Independent PT Bed Mobility Goal Time Frame : 10 day(s) PT Transfer Goal : Independent PT Transfer Device Goal : None PT Transfer Goal Time Frame : 10 day(s) PT Ambulation Goal : Independent PT Ambulation Device for Goal : None PT Ambulation Distance Goal : 500 ft PT Ambulation Goal Time Frame : 10 day(s) Umu Harris PT - 11/24/2022 12:40 CDT PT Plan of Care PT Problem List / Planned Interventions : Impaired balance, coordination, proprioception: Neuromuscular Re-education, Impaired functional mobility: Gait and/or transfer training, Strength/ROM deficits: Therapeutic exercise and/or orthotic training as appropriate Umu Harris PT - 11/24/2022 12:40 CDT PT Treatment Recommended : Yes PT Treatment Diagnosis : Gait abnormality, Muscle Weakness, Decreased balance PT Frequency : Daily, M-F, weekends per protocol, until patient discharged or goals met PT Plan/Goals Reviewed w Pt/Caregiver : Yes Umu Harris PT - 11/24/2022 11:51 CDT Charges PT Total Session Start Time : 11/24/2022 07:35 CDT PT Total Session Stop Time : 11/24/2022 08:02 CDT PT Total Tx Time : 27 minute(s) Umu Harris PT - 11/24/2022 12:40 CDT PT: Ambulation Status : Patient able to ambulate with assist Ambulation Status Determined : By observation Therapeutic Exercise Units : 0 unit(s) Gait/Mobility Training Units : 1 unit(s) Umu Harris PT - 11/24/2022 11:51 CDT Clinician Documenting : PT Physical Therapy Visit Status : Patient seen for treatment session this date. PT Evaluation Charge : I Umu Harris PT - 11/24/2022 08:10 CDT General Info Admit Reason : Nausea/vomiting Pain Symptoms : No HPI IP Therapies : Hematemesis PMH : CAD/CABG, afib, HTN, endocarditis, mitral valve replacement, anemia, CKD, gout, prostate cancer, HLD Umu Harris PT - 11/24/2022 12:40 CDT Onset Date - PT : 11/23/2022 CDT PT Start of Care Date : 11/24/2022 CDT Orientation : Oriented x 4 Basic Command Following : Multi -Step Commands Therapy Services Safety/Judgement : Intact Session Conclusion : Patient left in chair with call light and phone within reach Umu Harris PT - 11/24/2022 11:51 CDT Living Situation Living Environment OT : Single level home Umu Harris PT - 11/24/2022 12:40 CDT Living Situation Stairs Inside Stairs Number of Stairs : 10 (Comment: basement laundry [Umu Harris PT - 11/24/2022 12:40 CDT] ) Umu Harris PT - 11/24/2022 12:40 CDT Admit From IP Therapy : Home Home Assist IP Therapy : Independent Home Comments : Lives at home alone, drives, ambulates with no device, retired. Umu Harris PT - 11/24/2022 12:40 CDT Functional Level Prior to This Admission Bed Mobility : Independent Transfers : Independent Ambulation : Independent Stairs : Independent Umu Harris PT - 11/24/2022 12:40 CDT Vital Signs Systolic Blood Pressure : 134 mm Hg Diastolic Blood Pressure : 81 mm Hg Peripheral Pulse Rate : 62 bpm Oxygen Flow Rate : 0 L/min Blood Pressure Position : Sitting Post Systolic Blood Pressure : 156 mm Hg (H*) Post Diastolic Blood Pressure : 92 mm Hg (H*) Post Peripheral Pulse Rate : 79 bpm Post Oxygen Flow Rate : 0 L/min Post Blood Pressure Position : Sitting Exercise Endurance : Good (Comment: minus [Umu Harris PT - 11/24/2022 12:40 CDT] ) Umu Harris PT 11/24/2022 12:40 CDT Musculoskeletal Range of Motion (ROM) : Right LE grossly WFL, Left LE grossly WFL Manual Muscle Testing (MMT) : Right LE grossly WFL, Left LE grossly WFL Umu Harris PT 11/24/2022 12:40 CDT Neuro PT Balance Eval : Good minus overall balance with long-distance gait in the hallways. Umu Harris PT - 11/24/2022 12:40 CDT * Event Display: Device Check Documentation Authored Date: [id number] * Leatha Lantigua RN: PERFORM Event Display: Patient History Adult - Text Authored Date: [id number] Patient History Entered On: 11/23/2022 19:08 CDT Performed On: 11/23/2022 19:04 CDT by Leatha Lantigua RN Preferred Language Preferred Language of Patient/Caregiver : Romanian Preferred Mode of Communication : Verbal Leatha Lantigua RN - 11/23/2022 19:04 CDT General Information Information Given By : Patient, Daughter Leatha Lantigua RN - 11/23/2022 19:04 CDT Problem List Adult Past Medical History Reviewed : Yes Leatha Lantigua RN - 11/23/2022 19:04 CDT (As Of: 11/23/2022 19:08 CDT) Problems(Active) Anemia of chronic disease (SNOMED CT :864898528 ) Name of Problem: Anemia of chronic disease ; Recorder: Emmanuel Stevens MD; Confirmation: Confirmed ; Classification: Medical ; Code: [id number] ; Contributor System: PowerChart ; Last Updated: 12/13/2021 08:36 CDT ; Life Cycle Date: 12/13/2021 ; Life Cycle Status: Active ; Responsible Provider: Emmanuel Stevens MD; Vocabulary: SNOMED CT Ascending aorta dilation (SNOMED CT :338071674 ) Name of Problem: Ascending aorta dilation ; Recorder: Emmanuel Stevens MD; Confirmation: Confirmed ; Classification: Medical ; Code: [id number] ; Contributor System: PowerChart ; Last Updated: 12/05/2021 07:34 CDT ; Life Cycle Date: 12/05/2021 ; Life Cycle Status: Active ; Responsible Provider: Emmanuel Stevens MD; Vocabulary: SNOMED CT CAD (coronary artery disease) (SNOMED CT :50298262 ) Name of Problem: CAD (coronary artery disease) ; Recorder: Yue Guo RN; Confirmation: Confirmed ; Classification: Medical ; Code: [id number] ; Contributor System: PowerChart ; Last Updated: 07/05/2020 11:51 SOCIAL AND POLITICAL STUDIES PROFESSOR ; Life Cycle Date: 07/05/2020 ; Life Cycle Status: Active ; Vocabulary: SNOMED CT CKD (chronic kidney disease), stage III (SNOMED CT :5272202255 ) Name of Problem: CKD (chronic kidney disease), stage III ; Recorder: Emmanuel Stevens MD; Confirmation: Confirmed ; Classification: Medical ; Code: [id number] ; Contributor System: PowerChart ; Last Updated: 08/02/2020 07:32 CDT ; Life Cycle Date: 08/02/2020 ; Life Cycle Status: Active ; Responsible Provider: Emmanuel Stevens MD; Vocabulary: SNOMED CT Gall stone (SNOMED CT :838227449 ) Name of Problem: Gall stone ; Recorder: Emmanuel Stevens MD; Confirmation: Confirmed ; Classification: Medical ; Code: 159221795 ; Contributor System: PowerChart ; Last Updated: 08/02/2020 07:37 CDT ; Life Cycle Date: 08/02/2020 ; Life Cycle Status: Active ; Responsible Provider: Emmanuel Stevens MD; Vocabulary: SNOMED CT Gout (SNOMED CT :575481622 ) Name of Problem: Gout ; Recorder: Yue Guo RN; Confirmation: Confirmed ; Classification: Medical ; Code: [id number] ; Contributor System: PowerChart ; Last Updated: 07/05/2020 12:07 SOCIAL AND POLITICAL STUDIES PROFESSOR ; Life Cycle Date: 07/05/2020 ; Life Cycle Status: Active ; Vocabulary: SNOMED CT History of endocarditis (SNOMED CT :0726161613 ) Name of Problem: History of endocarditis ; Recorder: Emmanuel Stevens MD; Confirmation: Confirmed; Classification: Medical ; Code: [id number] ; Contributor System: PowerChart ; Last Updated: 11/08/2020 09:55 CDT ; Life Cycle Date: 11/08/2020 ; Life Cycle Status: Active ; Responsible Provider: Emmanuel Stevens MD; Vocabulary: SNOMED CT Hypercalcemia (SNOMED CT :151601955 ) Name of Problem: Hypercalcemia ; Recorder: Emmanuel Stevens MD; Confirmation: Confirmed ; Classification: Medical ; Code: 239378417 ; Contributor System: PowerChart ; Last Updated: 07/02/2022 10:58 SOCIAL AND POLITICAL STUDIES PROFESSOR ; Life Cycle Date: 07/02/2022 ; Life Cycle Status: Active ; Responsible Provider: Emmanuel Stevens MD; Vocabulary: SNOMED CT Hyperlipidemia (SNOMED CT :90036671 ) Name of Problem: Hyperlipidemia ; Recorder: Megha Tracey CHIEF LIBRARIAN EXTENSION DEPARTMENT/SENIOR MANAGER [employer]; Confirmation: Confirmed ; Classification: Medical ; Code: 12211480 ; Contributor System: PowerChart ; Last Updated: 07/31/2020 07:19 CDT ; Life Cycle Date: 07/31/2020 ; Life Cycle Status: Active ; Responsible Pr ovider: Megha Tracey CHIEF LIBRARIAN EXTENSION DEPARTMENT/SENIOR MANAGER [employer]; Vocabulary: SNOMED CT Hypertension (SNOMED CT :2343205724 ) Name of Problem: Hypertension ; Recorder: Emmanuel Stevens MD; Confirmation: Confirmed ; Classification: Medical ; Code: 4053673113 ; Contributor System: PowerChart ; Last Updated: 05/09/2021 07:45 SOCIAL AND POLITICAL STUDIES PROFESSOR ; Life Cycle Date: 05/09/2021 ; Life Cycle Status: Active ; Responsible Provider: Emmanuel Stevens MD; Vocabulary: SNOMED CT Hypothyroidism (SNOMED CT :10367481 ) Name of Problem: Hypothyroidism ; Recorder: Kemi Daley MD; Confirmation: Confirmed ; Classification: Medical ; Code: [id number] ; Contributor System: PowerChart ; Last Updated: 07/05/2021 10:09 SOCIAL AND POLITICAL STUDIES PROFESSOR ; Life Cycle Date: 07/05/2021 ; Life Cycle Status: Active ; Responsible Provider: Kemi Daley; Vocabulary: SNOMED CT Large hiatal hernia (SNOMED CT :831809893 ) Name of Problem: Large hiatal hernia ; Recorder: Emmanuel Stevens MD; Confirmation: Confirmed ; Classification: Medical ; Code: [id number] ; Contributor System: PowerChart ; Last Updated: 08/02/2020 07:37 CDT ; Life Cycle Date: 08/02/2020 ; Life Cycle Status: Active ; Responsible Provider: Nicky Stevens MD; Vocabulary: SNOMED CT Medication monitoring encounter (SNOMED CT :713958518 ) Name of Problem: Medication monitoring encounter ; Recorder: Emmanuel Stevens MD; Confirmation: Confirmed ; Classification: Medical ; Code: [id number] ; Contributor System: PowerChart ; Last Updated: 08/02/2020 07:32 CDT ; Life Cycle Date: 08/02/2020 ; Life Cycle Status: Active ; Responsible Provider:Emmanuel Stevens MD; Vocabulary: SNOMED CT Persistent atrial fibrillation (SNOMED CT :9986896705 ) Name of Problem: Persistent atrial fibrillation ; Recorder: Jose Martin Lomas M.D.; Confirmation: Confirmed ; Classification: Medical ; Code: [id number] ; Contributor System: PowerChart ; Last Updated: 08/26/2020 22:27 CDT ; Life Cycle Date: 08/26/2020 ; Life Cycle Status: Active ; Responsible Provider: Jose Martin Lomas M.D.; Vocabulary: SNOMED CT Prostate cancer (SNOMED CT :5954563783 ) Name of Problem: Prostate cancer ; Recorder: Emmanuel Stevens MD; Confirmation: Confirmed ; Classification: Medical ; Code: 0928720991 ; Contributor System: PowerChart ; Last Updated: 12/05/2021 07:36 CDT ; Life Cycle Date: 12/05/2021 ; Life Cycle Status: Active ; Responsible Provider: Emmanuel Stevens MD; Vocabulary: SNOMED CT Proteinuria (SNOMED CT :18581637 ) Name of Problem: Proteinuria ; Recorder: Emmanuel Stevens MD; Confirmation: Confirmed ; Classification: Medical ; Code: 63157889 ; Contributor System: Yu RongChart ; Last Updated: 05/23/2021 14:02 SOCIAL AND POLITICAL STUDIES PROFESSOR; Life Cycle Date: 05/23/2021 ; Life Cycle Status: Active ; Responsible Provider: Emmanuel Stevens; Vocabulary: SNOMED CT S/P CABG x 1 (SNOMED CT :0244653086 ) Name of Problem: S/P CABG x 1 ; Recorder: Emmanuel Stevens MD; Confirmation: Confirmed ; Classification: Medical ; Code: [id number] ; Contributor System: Yu RongChart ; Last Updated: 08/02/2020 07:35 CDT ; Life Cycle Date: 08/02/2020 ; Life Cycle Status: Active ; Responsible Provider: Emmanuel Stevens MD; Vocabulary: SNOMED CT S/P mitral valve repair (SNOMED CT :9770047052 ) Name of Problem: S/P mitral valve repair ; Recorder: Emmanuel Stevens MD; Confirmation: Confirmed; Classification: Medical ; Code: 8955475163 ; Contributor System: Yu RongChart ; Last Updated: 08/02/2020 07:35 CDT ; Life Cycle Date: 08/02/2020 ; Life Cycle Status: Active ; Responsible Provider: Emmanuel Stevens MD; Vocabulary: SNOMED CT S/P prostatectomy (SNOMED CT :125390174 ) Name of Problem: S/P prostatectomy ; Recorder: Emmanuel Stevens MD; Confirmation: Confirmed ; Classification: Medical ; Code: [id number] ; Contributor System: Yu RongChart ; Last Updated: 08/02/2020 07:36 CDT ; Life Cycle Date: 08/02/2020 ; Life Cycle Status: Active ; Responsible Provider: Emmanuel Stevens MD; Vocabulary: SNOMED CT Trouble in sleeping (SNOMED CT :938487414 ) Name of Problem: Trouble in sleeping ; Recorder: Megha Tracey CHIEF LIBRARIAN EXTENSION DEPARTMENT/SENIOR MANAGER [employer]; Confirmation: Confirmed ; Classification: Medical ; Code: [id number] ; Contributor System: [employer] ; Last Updated: 08/02/2020 08:23 CDT ; Life Cycle Date: 08/02/2020 ; Life Cycle Status: Active ; Responsible Provider: Megha Tracey CHIEF LIBRARIAN EXTENSION DEPARTMENT/SENIOR MANAGER [employer]ISITIONS; Vocabulary: SNOMED CT Diagnoses(Active) Acute pharyngitis Date: 11/23/2022 ; Diagnosis Type: Discharge ; Confirmation: Confirmed ; Clinical Dx: Acute pharyngitis ; Classification: Medical ; Clinical Service: Emergency medicine ; Code: ICD-10-CM ; Probability: 0 ; Diagnosis Code: J02.9 Acute upper GI bleed Date: 11/23/2022 ; Diagnosis Type: Discharge ; Confirmation: Confirmed ; Clinical Dx: Acute upper GI bleed ; Classification: Medical ; Clinical Service: Emergency medicine ; Code: ICD-10-CM ; Probability: 0 ; Diagnosis Code: K92.2 Chronic kidney disease (CKD) Date: 11/23/2022 ; Diagnosis Type: Discharge ; Confirmation: Confirmed ; Clinical Dx: Chronic kidneydisease (CKD) ; Classification: Medical ; Clinical Service: Emergency medicine ; Code: ICD-10-CM ; Probability: 0 ; Diagnosis Code: N18.9 Throat pain - Adult Date: 11/23/2022 ; Diagnosis Type: Reason For Visit ; Confirmation: Confirmed ; Clinical Dx: Throat pain - Adult ; Classification: Medical ; Clinical Service: Emergency medicine ; Code: PNED ; Probability: 0 ; Diagnosis Code: [id number] Vomiting Date: 11/23/2022 ; Diagnosis Type: Reason For Visit ; Confirmation: Confirmed ; Clinical Dx: Vomiting ; Classification: Medical ; Clinical Service: Emergency medicine ; Code: PNED ; Probability: 0 ; Diagnosis Code: [id number] Family Health History Family History Reviewed : Yes Leatha Lantigua RN - 11/23/2022 19:04 CDT Family History (As Of: 11/23/2022 19:08 CDT) Mother: Relation: Mother ; Gender: Female ; Nomenclature: Family members ; Value: Positive Nomenclature: Stroke ; Value: Positive Father: Relation: Father ; Gender: Male ; Nomenclature: Family members ; Value: Positive Nomenclature: Heart attack ; Value: Positive Nomenclature: Heart disease ; Value: Positive Procedure History Procedure History Reviewed : Yes Leatha Lantigua RN - 11/23/2022 19:04 CDT - Procedure History (As Of: 11/23/2022 19:08 CDT) Anesthesia Minutes: 0 ; Procedure Name: Biopsy of prostate ; Procedure Minutes: 0 Anesthesia Minutes: 0 ; Procedure Name: Prostatectomy ; Procedure Minutes: 0 Anesthesia Minutes: 0 ; Procedure Name: Cardiac catheterization ; Procedure Minutes: 0 Anesthesia Minutes: 0 ; Procedure Name: cardiac stents ; Procedure Minutes: 0 ; Comments: 07/05/2020 11:50 KEVIN - Yue Guo RN 2008, 2018 Allergies Allergies Verified? : Yes Leatha Lantigua RN - 11/23/2022 19:04 CDT (As Of: 11/23/2022 19:08 CDT) Allergies (Active) NKA Estimated Onset Date: Unspecified ; Created By: Darling Bennett RN; Reaction Status: Active ; Category: Drug ; Substance: NKA ; Type: Allergy ; Updated By: Darling Bennett RN; Reviewed Date: 11/23/2022 13:53 CDT Medication List Medications Verified? : Yes Leatha Lantigua RN - 11/23/2022 19:04 CDT Medication List (As Of: 11/23/2022 19:08 CDT) Normal Order amLODIPine 10 mg Tab : amLODIPine 10 mg Tab ; Status: Ordered ; Ordered As Mnemonic: amLODIPine ; Simple Display Line: 10 mg, 1 tablet(s), Oral, daily ; Ordering Provider: Amy Rose DO; Catalog Code: amLODIPine ; Order Dt/Tm: 11/23/2022 18:52 CDT ; Comment: Check Blood Pressure and Pulse. Hold and Call physician for SBP of < 90 or Pulse < 50 ALWAYS Communicate Potential Side Effects: Tiredness, drowsiness, headache ezetimibe 10 mg Tab : ezetimibe 10 mg Tab ; Status: Ordered ; Ordered As Mnemonic: ezetimibe ; Simple Display Line: 10 mg, 1 tablet(s), Oral, daily ; Ordering Provider: Amy Rose DO; Catalog Code: ezetimibe ; Order Dt/Tm: 11/23/2022 18:53 CDT ; Comment: ALWAYS Communicate Potential Side Effects: Dizziness, chest pain, diarrhea pantoprazole 40 mg Inj : pantoprazole 40 mg Inj ; Status: Canceled ; Ordered As Mnemonic: Protonix ; Simple Display Line: 40 mg, 10 mL, IV SLOW Push, daily ; Ordering Provider: Amy Rose DO; Catalog Code: pantoprazole ; Order Dt/Tm: 11/23/2022 17:53 CDT ; Comment: Reconstitute 40 mg vial with 10 mL of 0.9% Sodium Chloride and administered IV Slow Push over a period of at least 2 minutes. ALWAYS Communicate Potential Side Effects:: Diarrhea, headache, tiredness levothyroxine 50 mcg (0.05 mg) Tab : levothyroxine 50 mcg (0.05 mg) Tab ; Status: Ordered ; Ordered As Mnemonic: levothyroxine ; Simple Display Line: 50 mcg, 1 tablet(s), Oral, daily before breakfast ; Ordering Provider: Amy Rose DO; Catalog Code: levothyroxine ; Order Dt/Tm: 11/23/2022 18:53 CDT ; Comment: ALWAYS Communicate Potential Side Effects: Appetite or weight changes, nervousness, sensitivity to heat, sweating pantoprazole 40 mg Inj : pantoprazole 40 mg Inj ; Status: Ordered ; Ordered As Mnemonic: Protonix ; Simple Display Line: 40 mg, 10 mL, IV SLOW Push, bid ; Ordering Provider: Amy Rose DO; Catalog Code: pantoprazole ; Order Dt/Tm: 11/23/2022 17:57 CDT ; Comment: Reconstitute 40 mg vial with 10 mL of 0.9% Sodium Chloride and administered IV Slow Push over a period of at least 2 minutes. ALWAYS Communicate Potential Side Effects:: Diarrhea, headache, tiredness hEParin 5000 units/1 mL 1 mL Inj : hEParin 5000 units/1 mL 1 mL Inj ; Status: Canceled ; Ordered As Mnemonic: Heparin (SubQ Dosing) ; Simple Display Line: 5,000 unit(s), 1 mL, SubQ, [id number] ; Ordering Provider: Amy Rose DO; Catalog Code: heparin ; Order Dt/Tm: 11/23/2022 17:52 CDT ; Comment: ALWAYS Communicate Potential Side Effects: Redness, pain, swelling, where the needle is placed. Bleeding or bruising allopurinol 100 mg Tab : allopurinol 100 mg Tab ; Status: Ordered ; Ordered As Mnemonic: allopurinol ; Simple Display Line: 100 mg, 1 tablet(s), Oral, bid ; Ordering Provider: Amy Rose DO; Catalog Code: allopurinol ; Order Dt/Tm: 11/23/2022 18:52 CDT atorvastatin 40 mg Tab : atorvastatin 40 mg Tab ; Status: Ordered ; Ordered As Mnemonic: atorvastatin ; Simple Display Line: 40 mg, 1 tablet(s), Oral, qhs ; Ordering Provider: Amy Rose DO; Catalog Code: atorvastatin ; Order Dt/Tm: 11/23/2022 18:52 CDT ; Comment: ALWAYS Communicate Potential Side Effects: Headache, insomnia, swelling, diarrhea cloNIDine 0.1 mg Tab : cloNIDine 0.1 mg Tab ; Status: Ordered ; Ordered As Mnemonic: cloNIDine ; Simple Display Line: 0.1 mg, 1 tablet(s), Oral, bid ; Ordering Provider: Amy Rsoe DO; Catalog Code: cloNIDine ; Order Dt/Tm: 11/23/2022 18:52 CDT ; Comment: Check Blood Pressure and Pulse. Hold and Call physician for SBP of < 90 or Pulse < 50 ALWAYS Communicate Potential Side Effects: dry mouth, drowsiness, dizziness metoprolol 50 mg Tab : metoprolol 50 mg Tab ; Status: Ordered ; Ordered As Mnemonic: Metoprolol Tartrate ; Simple Display Line: 50 mg, 1 tablet(s), Oral, bid ; Ordering Provider: Amy Rose DO; Catalog Code:metoprolol ; Order Dt/Tm: 11/23/2022 18:53 CDT ; Comment: Check Blood Pressure and Pulse. Hold and Call physician for SBP of < 90 or Pulse < 50 ALWAYS Communicate Potential Side Effects: Mild dizziness, tiredness potassium chloride 20 mEq Oral Pwdr : potassium chloride 20 mEq Oral Pwdr ; Status: Ordered ; Ordered As Mnemonic: potassium chloride ;Simple Display Line: 20 mEq, 1 packet(s), Oral/Per Tube, Once ; Ordering Provider: Amy Rose DO; Catalog Code: potassium chloride ; Order Dt/Tm: 11/23/2022 17:56 CDT ; Comment: Dissolveeach packet in at least 4 ounces of water or juice. ALWAYS Communicate Potential Side Effects: Mild nausea, diarrhea, gas, stomach pain Maalox ES/Diph. Elix/Lidoc Visc. 5 mL UD Oral Syringe : Maalox ES/Diph. Elix/Lidoc Visc. 5 mL UD Oral Syringe ; Status: Ordered ; Ordered As Mnemonic: Maalox/Diphenhydramine/Lidocaine Visc. ; Simple Display Line: 5 mL, Oral, tid, PRN: mouth sore pain ; Ordering Provider: Amy Rose DO; Catalog Code: lidocaine topical ; Order Dt/Tm: 11/23/2022 17:53 CDT ; Comment: Swish and Swallow Magic mouthwash compound (Lidocaine + Diphenhydramine + Antacid) melatonin 3 mg Tab : melatonin 3 mg Tab ; Status: Ordered ; Ordered As Mnemonic: melatonin ; Simple Display Line: 3 mg, 1 tablet(s), Oral, qhs, PRN: sleep ; Ordering Provider: Amy Rose DO; Catalog Code: melatonin ; Order Dt/Tm: 11/23/2022 17:52 CDT ; Comment: ALWAYS Communicate Potential Side Effects: Feeling sluggish or tired in the morning, headache naloxone 0.4 mg/1 mL Inj : naloxone 0.4 mg/1 mL Inj ; Status: Ordered ; Ordered As Mnemonic: Narcan ; Simple Display Line: 0.2 mg, 0.5 mL, IV SLOW Push, q2min, PRN: opiate reversal ; Ordering Provider: Amy Rose DO; Catalog Code: naloxone ; Order Dt/Tm: 11/23/2022 17:52 CDT ; Comment: ALWAYS Communicate Potential Side Effects: increased heart rate, increased blood pressure, nausea polyethylene glycol 3350 Oral Pwdr 17 gm Packet : polyethylene glycol 3350 Oral Pwdr 17 gm Packet ; Status: Ordered ; Ordered As Mnemonic: MiraLax oral powder for reconstitution ; Simple Display Line: 1 packet(s), Oral, daily, PRN: constipation ; Ordering Provider: Amy Rose DO; Catalog Code: polyethylene glycol 3350 ; Order Dt/Tm:11/23/2022 17:52 CDT ; Comment: Dissolve in 8 ounces of liquid. (If patient is diabetic mix with H2O or Diet 7-up) ALWAYS Communicate Potential Side Effects: bloating, cramping, diarrhea acet-oxyCODONE 325 mg-5 mg Tab : acet-oxyCODONE 325 mg-5 mg Tab ; Status: Ordered ; Ordered As Mnemonic: Percocet 5/325 oral tablet ; Simple Display Line: 1 tablet(s), Oral, [id number], PRN: pain, moderate ; Ordering Provider: Asha Apple DO; Catalog Code: acetaminophen-oxyCODONE ; Order Dt/Tm: 11/23/2022 17:10 CDT ; Comment: DoNot exceed 3 GM Acetaminophen in 24 hours. ALWAYS Communicate Potential Side Effects: Constipation, nausea, vomiting, tiredness, itching, rash. acetaminophen 325 mg Tab : acetaminophen 325 mg Tab ; Status: Ordered ; Ordered As Mnemonic: Tylenol ; Simple Display Line: 650 mg, 2 tablet(s), Oral, [id number], PRN: pain, mild ; Ordering Provider: Asha Apple DO; Catalog Code: acetaminophen ; Order Dt/Tm: 11/23/2022 17:10 CDT ; Comment: Do Not exceed 3 GM Acetaminophen in 24 hours. ALWAYS Communicate Potential Side Effects: Nausea, vomiting, constipation morphine 2 mg/1 mL Inj : morphine 2 mg/1 mL Inj ; Status: Ordered ; Ordered As Mnemonic: morphine ; Simple Display Line: 2mg, 1 mL, IV SLOW Push, [id number], PRN: pain, severe ; Ordering Provider: Asha Apple DO; Catalog Code: morphine ; Order Dt/Tm: 11/23/2022 17:10 CDT ; Comment: For severe pain. If patient has 2 med orders for severe pain, administer IV med when patient is unable to take PO. Slow IV over 4 to 5 minutes ALWAYS Communicate Potential Side Effects: Constipation, nausea, vomiting, sleepiness, tiredness, itching, rash naloxone 0.4 mg/1 mL Inj : naloxone 0.4 mg/1 mL Inj ; Status: Discontinued ; Ordered As Mnemonic: Narcan ; Simple Display Line: 0.2 mg, 0.5 mL, IV SLOW Push, q2min, PRN: opiate reversal ; Ordering Provider: Asha Apple DO; Catalog Code: naloxone ; Order Dt/Tm: 11/23/2022 17:10 CDT ; Comment: ALWAYS Communicate PotentialSide Effects: increased heart rate, increased blood pressure, nausea ondansetron 4 mg/2 mL Inj : ondansetron 4 mg/2 mL Inj ; Status: Ordered ; Ordered As Mnemonic: ondansetron ; Simple Display Line: 4 mg, 2 mL, IV SLOW Push, [id number], PRN: nausea/vomiting ; Ordering Provider: Asha Apple DO;Catalog Code: ondansetron ; Order Dt/Tm: 11/23/2022 17:10 CDT ; Comment: ALWAYS Communicate Potential Side Effects: Headache, tiredness, pain, swelling, itching, irritation where the needle is placed. ondansetron 4 mg/2 mL Inj : ondansetron 4 mg/2 mL Inj ; Status: Completed ; Ordered As Mnemonic: Zofran ; Simple Display Line: 4 mg, 2 mL, IV SLOW Push, Once ; Ordering Provider: Asha Apple DO; Catalog Code: ondansetron ; Order Dt/Tm: 11/23/2022 15:51 CDT ; Comment: ALWAYS Communicate Potential Side Effects: Headache, tiredness, pain, swelling, itching, irritation where the needle is placed. morphine 4 mg/1 mL Inj : morphine 4 mg/1 mL Inj ; Status: Completed ; Ordered As Mnemonic: morphine ; Simple Display Line:4 mg, 1 mL, IV SLOW Push, Once ; Ordering Provider: Asha Apple DO; Catalog Code: morphine ; Order Dt/Tm: 11/23/2022 14:45 CDT ; Comment: Slow IV over 4 to 5 minutes ALWAYS Communicate Potential Side Effects: Constipation, nausea, vomiting, sleepiness, tiredness, itching, rash ondansetron 4 mg/2 mL Inj : ondansetron 4 mg/2 mL Inj ; Status: Completed ; Ordered As Mnemonic: Zofran ; Simple Display Line: 4 mg, 2 mL, IV SLOW Push, Once ; Ordering Provider: Asha Apple DO; Catalog Code: ondansetron ;Order Dt/Tm: 11/23/2022 14:05 CDT ; Comment: ALWAYS Communicate Potential Side Effects: Headache, tiredness, pain, swelling, itching, irritation where the needle is placed. pantoprazole 40 mg Inj : pantoprazole 40 mg Inj ; Status: Completed ; Ordered As Mnemonic: Protonix ; Simple Display Line:40 mg, 10 mL, IV SLOW Push, Once ; Ordering Provider: Asha Apple DO; Catalog Code: pantoprazole; Order Dt/Tm: 11/23/2022 14:15 CDT ; Comment: Reconstitute 40 mg vial with 10 mL of 0.9% Sodium Chloride and administered IV Slow Push over a period of at least 2 minutes. ALWAYS Communicate Potential Side Effects:: Diarrhea, headache, tiredness dexAMETHasone 4 mg/1 mL Inj : dexAMETHasone 4 mg/1 mL Inj ; Status: Completed ; Ordered As Mnemonic: Decadron ; Simple Display Line: 6 mg, 1.5 mL, IV SLOW Push, Once ; Ordering Provider: Asha Apple DO; Catalog Code: dexAMETHasone ; Order Dt/Tm: 11/23/2022 13:31 CDT ; Comment: ALWAYS Communicate Potential Side Effects headache, hyperglycemia, mood swings, weight gain Sodium Chloride 0.9% : Sodium Chloride 0.9% ; Status: Completed ; Ordered As Mnemonic: NS (BOLUS DOSE) ; Simple Display Line: 1,000 mL, 0 mL/hr, IV Piggyback, Once ; Ordering Provider: Asha Apple DO; Catalog Code: Sodium Chloride 0.9% ; Order Dt/Tm: 11/23/2022 13:31 CDT Prescription/Discharge Order levothyroxine : levothyroxine ; Status: Prescribed ; Ordered As Mnemonic: levothyroxine 50 mcg (0.05 mg) oral tablet ; Simple Display Line: 50 mcg, 1 tablet(s), Oral, daily before breakfast, 90 tablet(s), 3 Refill(s) ; Ordering Provider: Emmanuel Stevens MD; Catalog Code: levothyroxine ; Order Dt/Tm: 11/18/2022 13:10 CDT atorvastatin : atorvastatin ; Status: Completed ; Ordered As Mnemonic: atorvastatin 80 mg oral tablet ; Simple Display Line: 1 tablet(s), Oral, daily, 90 tablet(s), 2 Refill(s) ; Ordering Provider: Cynthia Lomas M.D.; Catalog Code: atorvastatin ; Order Dt/Tm: 10/14/2022 08:15 CDT ezetimibe : ezetimibe ; Status: Prescribed ; Ordered As Mnemonic: ezetimibe 10 mg oral tablet ; Simple Display Line: 1 tablet(s), Oral, daily, for 90 day(s), 90 tablet(s), 3 Refill(s) ; Ordering Provider: Jose Martin Lomas M.D.; Catalog Code: ezetimibe ; Order Dt/Tm: 10/14/2022 08:15 CDT amLODIPine : amLODIPine ; Status: Prescribed ; Ordered As Mnemonic: amLODIPine 10 mg oral tablet ; Simple Display Line: 10 mg, 1 tablet(s), Oral, daily, 90 tablet(s), 3 Refill(s) ; Ordering Provider: Emmanuel Stevens MD; Catalog Code: amLODIPine ; Order Dt/Tm: 08/25/2022 07:09 CDT cloNIDine : cloNIDine ; Status: Prescribed ; Ordered As Mnemonic: cloNIDine 0.1 mg oral tablet ; Simple Display Line: 0.1 mg, 1 tablet(s), Oral, bid, for 90 day(s), 180 tablet(s), 3 Refill(s) ; Ordering Provider: Emmanuel Stevens MD; Catalog Code: cloNIDine ; Order Dt/Tm: 07/02/2022 11:03 SOCIAL AND POLITICAL STUDIES PROFESSOR allopurinol : allopurinol ; Status: Prescribed ; Ordered As Mnemonic: allopurinol 100 mg oral tablet ; Simple Display Line: 100 mg, 1 tablet(s), Oral, bid, 180 tablet(s), 3 Refill(s) ; Ordering Provider: Emmanuel Stevens MD; Catalog Code: allopurinol ; Order Dt/Tm: 05/06/2022 14:17 SOCIAL AND POLITICAL STUDIES PROFESSOR metoprolol : metoprolol ; Status: Prescribed ; Ordered As Mnemonic: Metoprolol Tartrate 50 mg oral tablet ; Simple Display Line: 1 tablet(s), Oral, bid, 180 tablet(s), 3 Refill(s) ; Ordering Provider: Jose Martin Lomas M.D.; Catalog Code: metoprolol ; Order Dt/Tm: 12/30/2021 15:40 CDT Home Meds acetaminophen : acetaminophen ; Status: Documented ; Ordered As Mnemonic: Tylenol ; Simple Display Line: 500 mg, Oral, [id number], PRN: pain, mild, 0 Refill(s) ; Catalog Code: acetaminophen ; Order Dt/Tm: 11/23/2022 18:46 CDT atorvastatin : atorvastatin ; Status: Documented ; Ordered As Mnemonic: atorvastatin 40 mg oral tablet ; Simple Display Line: 40 mg, 1 tablet(s), Oral, qhs, 30 tablet(s), 0 Refill(s) ; Catalog Code: atorvastatin ; Order Dt/Tm: 11/23/2022 18:44 CDT lidocaine topical : lidocaine topical ; Status: Documented ; Ordered As Mnemonic: Lidocaine Viscous 2% mucous membrane solution ; Simple Display Line: 0.3 gm, 15 mL, Oral, qid, Gargle and spit, PRN: For Sore Throat, 100 mL ; Catalog Code: lidocaine topical ; Order Dt/Tm: 11/23/2022 16:38 CDT omeprazole : omeprazole ; Status: Documented ; Ordered As Mnemonic: omeprazole 20 mg oral delayed release capsule ; Simple Display Line: 20 mg, 1 capsule(s), Oral, daily before breakfast, 30 capsule(s), 0 Refill(s) ; Catalog Code: omeprazole ; Order Dt/Tm: 11/23/2022 16:38 CDT sucralfate : sucralfate ; Status: Documented ; Ordered As Mnemonic: sucralfate 1 g/10 mL oral suspension ; Simple Display Line: 1 gm, 10 mL, Oral, qid, for 10 day(s), 400 mL, 0 Refill(s) ; Catalog Code: sucralfate ; Order Dt/Tm: 11/23/2022 16:38 CDT leuprolide : leuprolide ; Status: Documented ; Ordered As Mnemonic: Lupron ; Simple Display Line: mg, 0 Refill(s) ; Catalog Code: leuprolide ; Order Dt/Tm: 12/05/2021 10:42 CDT polyethylene glycol 3350 : polyethylene glycol 3350 ; Status: Documented ; Ordered As Mnemonic: MiraLax oral powder for reconstitution ; Simple Display Line: 1 packet(s), Oral, daily, PRN: constipation, 0 Refill(s) ; Ordering Provider: Yuri Bailey M.D.; Catalog Code: polyethylene glycol 3350 ; Order Dt/Tm: 08/20/2020 11:20 CDT aspirin : aspirin ; Status: Documented ; Ordered As Mnemonic: aspirin 81 mg oral enteric coated tablet ; Simple Display Line: 81 mg, 1 tablet(s), Oral, daily, 0 Refill(s) ; Catalog Code: aspirin ; Order Dt/Tm: 07/05/2020 12:18 SOCIAL AND POLITICAL STUDIES PROFESSOR Functional Retail Event And Sales Assistant Card : Copied/Placed in Chart Medical Devices : Coronary artery stent or Vascular stent Radiology Testing Barriers/Precautions : None Medical Devices/Radiology Barriers Verified : Yes Living Situation : Home independently Anticipated Discharge Needs : Home independently Leatha Lantigua RN - 11/23/2022 19:04 CDT Social Habits Social History Reviewed : Yes Leatha Lantigua RN - 11/23/2022 19:04 CDT Social History (As Of: 11/23/2022 19:08 CDT) Tobacco: Never smoker, Smokeless Tobacco use: Never. No Cessation Counseling. (Last Updated: 11/23/2022 19:01 CDT by Leatha Lantigua RN) Alcohol: Never alcohol user (Last Updated: 11/23/2022 19:01 CDT by Leatha Lantigua RN) Substance Abuse: Never drug user (Last Updated: 12/05/2021 10:28 CDT by Dana Bird MA) Cultural/Spiritual Special Practices to be Part of Care : No Pastoral Care to Visit : Yes Leatha Lantigua RN - 11/23/2022 19:04 CDT Psychosocial Domestic Violence Screening : Unable to ask at this time Current Danger to Self or Others : No Current treatment for Cancer on 7700 : Yes Little interest/pleasure in doing things? : No Feeling down, depressed, or hopeless? : No Have you wished you were ? : No Had thoughts of killing yourself? : No Ever attempted to kill yourself? : No Leatha Lantigua RN - 11/23/2022 19:04 CDT Elopement Risk Assessment Is pt ambulatory or self-mobile in w/c? : Yes Is pt new admit questioning being here? : No Leatha Lantigua RN - 11/23/2022 19:04 CDT Oncology Distress Assessment Psychosocial Distress Level : 0 No Distress Leatha Lantigua RN - 11/23/2022 19:04 CDT Advance Directive Advanced Directives : Yes Advance Directive Type : Living will, Medical durable power of immigration attorney Advance Directive Location : Copy obtained from previous records Leatha Lantigua RN - 11/23/2022 19:04 CDT TB Screen Previous Pneumococcal Vaccine? : Yes Flu Vaccine This Season? : Not Flu Season Leatha Lantigua RN - 11/23/2022 19:04 CDT Novel Coronavirus Assessment Novel Coronavirus Current Fever : No Novel Coronavirus Exposed COVID 14 days : No Leatha Lantigua RN - 11/23/2022 19:04 CDT * Taylor Alvarado RN: PERFORM Event Display: Patient History Adult - Text Authored Date: [id number] Patient History Entered On: 11/23/2022 19:04 CDT Performed On: 11/23/2022 18:51 CDT by Leatha Lantigua RN Preferred Language Preferred Language of Patient/Caregiver : Romanian Preferred Mode of Communication : Verbal Leatha Lantigua RN - 11/23/2022 18:51 CDT General Information Information Given By : Patient, Daughter Leatha Lantigua RN - 11/23/2022 18:51 CDT Problem List Adult Past Medical History Reviewed : Yes Leatha Lantigua RN - 11/23/2022 18:51 CDT (As Of: 11/23/2022 19:04 CDT) Problems(Active) Anemia of chronic disease (SNOMED CT :090242218 ) Name of Problem: Anemia of chronic disease ; Recorder: Emmanuel Stevens MD; Confirmation: Confirmed ; Classification: Medical ; Code: [id number] ; Contributor System: [employer] ; Last Updated: 12/13/2021 08:36 CDT ; Life Cycle Date: 12/13/2021 ; Life Cycle Status: Active ; Responsible Provider: Emmanuel Stevens MD; Vocabulary: SNOMED CT Ascending aorta dilation (SNOMED CT :143376581 ) Name of Problem: Ascending aorta dilation ; Recorder: Emmanuel Stevens MD; Confirmation: Confirmed ; Classification: Medical ; Code: [id number] ; Contributor System: [employer] ; Last Updated: 12/05/2021 07:34 CDT ; Life Cycle Date: 12/05/2021 ; Life Cycle Status: Active ; Responsible Provider: Emmanuel Stevens MD; Vocabulary: SNOMED CT CAD (coronary artery disease) (SNOMED CT :58206131 ) Name of Problem: CAD (coronary artery disease) ; Recorder: Yue Guo RN; Confirmation: Confirmed ; Classification: Medical ; Code: [id number] ; Contributor System: [employer] ; Last Updated: 07/05/2020 11:51 SOCIAL AND POLITICAL STUDIES PROFESSOR ; Life Cycle Date: 07/05/2020 ; Life Cycle Status: Active ; Vocabulary: SNOMED CT CKD (chronic kidney disease), stage III (SNOMED CT :4507436850 ) Name of Problem: CKD (chronic kidney disease), stage III ; Recorder: Emmanuel Stevens MD; Confirmation: Confirmed ; Classification: Medical ; Code: [id number] ; Contributor System: [employer] ; Last Updated: 08/02/2020 07:32 CDT ; Life Cycle Date: 08/02/2020 ; Life Cycle Status: Active ; ResponsibleProvider: Emmanuel Stevens MD; Vocabulary: SNOMED CT Gall stone (SNOMED CT :823952490 ) Name of Problem: Gall stone ; Recorder: Emmanuel Stevens MD; Confirmation: Confirmed ; Classification: Medical ; Code: [id number] ; Contributor System: [employer] ; Last Updated: 08/02/2020 07:37 CDT ; Life Cycle Date: 08/02/2020 ; Life Cycle Status: Active ; Responsible Provider: Emmanuel Stevens MD; Vocabulary: SNOMED CT Gout (SNOMED CT :778725759 ) Name of Problem: Gout ; Recorder: Yue Guo RN; Confirmation: Confirmed ; Classification: Medical ; Code: [id number] ; Contributor System: [employer] ; Last Updated: 07/05/2020 12:07 SOCIAL AND POLITICAL STUDIES PROFESSOR ; Life Cycle Date: 07/05/2020 ; Life Cycle Status: Active ; Vocabulary: SNOMED CT History of endocarditis (SNOMED CT :0849077640 ) Name of Problem: History of endocarditis ; Recorder: Emmanuel Stevens MD; Confirmation: Confirmed; Classification: Medical ; Code: [id number] ; Contributor System: [employer] ; Last Updated: 11/08/2020 09:55 CDT ; Life Cycle Date: 11/08/2020 ; Life Cycle Status: Active ; Responsible Provider: Emmanuel Stevens MD; Vocabulary: SNOMED CT Hypercalcemia (SNOMED CT :602051264 ) Name of Problem: Hypercalcemia ; Recorder: Emmanuel Stevens MD; Confirmation: Confirmed ; Classification: Medical ; Code: [id number] ; Contributor System: Power[employer] ; Last Updated: 07/02/2022 10:58 SOCIAL AND POLITICAL STUDIES PROFESSOR ; Life Cycle Date: 07/02/2022 ; Life Cycle Status: Active ; Responsible Provider: Emmanuel Stevens MD; Vocabulary: SNOMED CT Hyperlipidemia (SNOMED CT :73590064 ) Name of Problem: Hyperlipidemia ; Recorder: Megha Tracey CHIEF LIBRARIAN EXTENSION DEPARTMENT/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 MANAGER [employer]ERS [employer] ACQUISITIONS; Confirmation: Confirmed ; Classification: Medical ; Code: [id number] ; Contributor System: [employer] ; Last Updated: 07/31/2020 07:19 CDT ; Life Cycle Date: 07/31/2020 ; Life Cycle Status: Active ; Responsible Pr ovider: Megha Tracey CHIEF LIBRARIAN EXTENSION DEPARTMENT/SENIOR MANAGER [employer]; Vocabulary: SNOMED CT Hypertension (SNOMED CT :0066610170 ) Name of Problem: Hypertension ; Recorder: Emmanuel Stevens MD; Confirmation: Confirmed ; Classification: Medical ; Code: [id number] ; Contributor System: PowerChart ; Last Updated: 05/09/2021 07:45 SOCIAL AND POLITICAL STUDIES PROFESSOR ; Life Cycle Date: 05/09/2021 ; Life Cycle Status: Active ; Responsible Provider: Emmanuel Stevens MD; Vocabulary: SNOMED CT Hypothyroidism (SNOMED CT :97857902 ) Name of Problem: Hypothyroidism ; Recorder: Kemi Daley MD; Confirmation: Confirmed ; Classification: Medical ; Code: [id number] ; Contributor System: PowerChart ; Last Updated: 07/05/2021 10:09 SOCIAL AND POLITICAL STUDIES PROFESSOR ; Life Cycle Date: 07/05/2021 ; Life Cycle Status: Active ; Responsible Provider: Kemi Daley MD; Vocabulary: SNOMED CT Large hiatal hernia (SNOMED CT :153012629 ) Name of Problem: Large hiatal hernia ; Recorder: Emmanuel Stevens MD; Confirmation: Confirmed ; Classification: Medical ; Code: [id number] ; Contributor System: PowerChart ; Last Updated: 08/02/2020 07:37 CDT ; Life Cycle Date: 08/02/2020 ; Life Cycle Status: Active ; Responsible Provider: Emmanuel Stevens MD; Vocabulary: SNOMED CT Medication monitoring encounter (SNOMED CT :087394831 ) Name of Problem: Medication monitoring encounter ; Recorder: Emmanuel Stevens MD; Confirmation: Confirmed ; Classification: Medical ; Code: [id number] ; Contributor System: PowerChart ; Last Updated: 08/02/2020 07:32 CDT ; Life Cycle Date: 08/02/2020 ; Life Cycle Status: Active ; Responsible Provider: Emmanuel Stevens MD; Vocabulary: SNOMED CT Persistent atrial fibrillation (SNOMED CT :9657909493 ) Name of Problem: Persistent atrial fibrillation ; Recorder: Jose Martin Lomas M.D.; Confirmation: Confirmed ; Classification: Medical ; Code: [id number] ; Contributor System: PowerChart ; Last Updated: 08/26/2020 22:27 CDT ; Life Cycle Date: 08/26/2020 ; Life Cycle Status: Active ; Responsible Provider: Jose Martin Lomas M.D.; Vocabulary: SNOMED CT Prostate cancer (SNOMED CT :7991069593 ) Name of Problem: Prostate cancer ; Recorder: Emmanuel Stevens MD; Confirmation: Confirmed ; Classification: Medical ; Code: [id number] ; Contributor System: PowerChart ; Last Updated: 12/05/2021 07:36 CDT ; Life Cycle Date: 12/05/2021 ; Life Cycle Status: Active ; Responsible Provider: Emmanuel Stevens MD; Vocabulary: SNOMED CT Proteinuria (SNOMED CT :19796799 ) Name of Problem: Proteinuria ; Recorder: Emmanuel Stevens MD; Confirmation: Confirmed ; Classification: Medical ; Code: [id number] ; Contributor System: PowerChart ; Last Updated: 05/23/2021 14:02 SOCIAL AND POLITICAL STUDIES PROFESSOR; Life Cycle Date: 05/23/2021 ; Life Cycle Status: Active ; Responsible Provider: Emmanuel Stevens; Vocabulary: SNOMED CT S/P CABG x 1 (SNOMED CT :3529763703 ) Name of Problem: S/P CABG x 1 ; Recorder: Emmanuel Stevens MD; Confirmation: Confirmed ; Classification: Medical ; Code: [id number] ; Contributor System: PowerChart ; Last Updated: 08/02/2020 07:35 CDT ; Life Cycle Date: 08/02/2020 ; Life Cycle Status: Active ; Responsible Provider: Emmanuel Stevens MD; Vocabulary: SNOMED CT S/P mitral valve repair (SNOMED CT :3206758866 ) Name of Problem: S/P mitral valve repair ; Recorder: Emmanuel Stevens MD; Confirmation: Confirmed; Classification: Medical ; Code: [id number] ; Contributor System: PowerChart ; Last Updated: 08/02/2020 07:35 CDT ; Life Cycle Date: 08/02/2020 ; Life Cycle Status: Active ; Responsible Provider: Emmanuel Stevens MD; Vocabulary: SNOMED CT S/P prostatectomy (SNOMED CT :500224330 ) Name of Problem: S/P prostatectomy ; Recorder: Emmanuel Stevens MD; Confirmation: Confirmed ; Classification: Medical ; Code: [id number] ; Contributor System: PowerChart ; Last Updated: 08/02/2020 07:36 CDT ; Life Cycle Date: 08/02/2020 ; Life Cycle Status: Active ; Responsible Provider: Emmanuel Stevens MD; Vocabulary: SNOMED CT Trouble in sleeping (SNOMED CT :546855987 ) Name of Problem: Trouble in sleeping ; Recorder: Megha Tracey CHIEF LIBRARIAN EXTENSION DEPARTMENT/SENIOR MANAGER [employer]; Confirmation: Confirmed ; Classification: Medical ; Code: [id number] ; Contributor System: PowerChart ; Last Updated: 08/02/2020 08:23 CDT ; Life Cycle Date: 08/02/2020 ; Life Cycle Status: Active ; Responsible Provider: Megha Tracey CHIEF LIBRARIAN EXTENSION DEPARTMENT/SENIOR MANAGER [employer]; Vocabulary: SNOMED CT Diagnoses(Active) Acute pharyngitis Date: 11/23/2022 ; Diagnosis Type: Discharge ; Confirmation: Confirmed ; Clinical Dx: Acute pharyngitis ; Classification: Medical ; Clinical Service: Emergency medicine ; Code: ICD-10-CM ; Probability: 0 ; Diagnosis Code: J02.9 Acute upper GI bleed Date: 11/23/2022 ; Diagnosis Type: Discharge ; Confirmation: Confirmed ; Clinical Dx: Acute upper GIbleed ; Classification: Medical ; Clinical Service: Emergency medicine ; Code: ICD-10-CM ; Probability: 0 ; Diagnosis Code: K92.2 Chronic kidney disease (CKD) Date: 11/23/2022 ; Diagnosis Type: Discharge ; Confirmation: Confirmed ; Clinical Dx: Chronic kidney disease (CKD) ; Classification: Medical ; Clinical Service: Emergency medicine ; Code: ICD-10-CM ;Probability: 0 ; Diagnosis Code: N18.9 Throat pain - Adult Date: 11/23/2022 ; Diagnosis Type: Reason For Visit ; Confirmation: Confirmed ; Clinical Dx: Throat pain - Adult ; Classification: Medical ; Clinical Service: Emergency medicine ; Code: PNED ; Probability: 0 ; Diagnosis Code: [id number] Vomiting Date: 11/23/2022 ; Diagnosis Type: Reason For Visit ; Confirmation: Confirmed ; Clinical Dx: Vomiting ; Classification: Medical ; Clinical Service: Emergency medicine ; Code: PNED ; Probability: 0 ; Diagnosis Code: [id number] Family Health History Family History Reviewed : Yes Leatha Lantigua RN - 11/23/2022 18:51 CDT Family History (As Of: 11/23/2022 19:04 CDT) Mother: Relation: Mother ; Gender: Female ; Nomenclature: Family members ; Value: Positive Nomenclature: Stroke ; Value: Positive Father: Relation: Father ; Gender: Male ; Nomenclature: Family members ; Value: Positive Nomenclature: Heart attack ; Value: Positive Nomenclature: Heart disease ; Value: Positive Procedure History Procedure History Reviewed : Yes Leatha Lantigua RN - 11/23/2022 18:51 CDT - Procedure History (As Of: 11/23/2022 19:04 CDT) Anesthesia Minutes: 0 ; Procedure Name: Biopsy of prostate ; Procedure Minutes: 0 Anesthesia Minutes: 0 ; Procedure Name: Prostatectomy ; Procedure Minutes: 0 Anesthesia Minutes: 0 ; Procedure Name: Cardiac catheterization ; Procedure Minutes: 0 Anesthesia Minutes: 0 ; Procedure Name: cardiac stents ; Procedure Minutes: 0 ; Comments: 07/05/2020 11:50 Yue Hough RN 2018 Allergies Allergies Verified? : Yes Leatha Lantigua RN - 11/23/2022 18:51 CDT (As Of: 11/23/2022 19:04 CDT) Allergies (Active) NKA Estimated Onset Date: Unspecified ; Created By: Darling Bennett RN; Reaction Status: Active ; Category: Drug ; Substance: NKA ; Type: Allergy ; Updated By: Darling Bennett RN; Reviewed Date: 11/23/2022 13:53 CDT Medication List Medications Verified? : Yes Leatha Lantigua RN - 11/23/2022 18:51 CDT Medication List (As Of: 11/23/2022 19:04 CDT) Normal Order amLODIPine 10 mg Tab : amLODIPine 10 mg Tab ; Status: Ordered ; Ordered As Mnemonic: amLODIPine ; Simple Display Line: 10 mg, 1 tablet(s), Oral, daily ; Ordering Provider: Amy Rose DO; Catalog Code: amLODIPine ; Order Dt/Tm: 11/23/2022 18:52 CDT ezetimibe 10 mg Tab : ezetimibe 10 mg Tab ; Status: Ordered ; Ordered As Mnemonic: ezetimibe ; Simple Display Line: 10 mg, 1 tablet(s), Oral, daily ; Ordering Provider: Amy Rose DO; Catalog Code: ezetimibe ; Order Dt/Tm: 11/23/2022 18:53 CDT pantoprazole 40 mg Inj : pantoprazole 40 mg Inj ; Status: Canceled ; Ordered As Mnemonic: Protonix ; Simple Display Line: 40 mg, 10 mL, IV SLOW Push, daily ; Ordering Provider: Amy Rose DO; Catalog Code: pantoprazole ; Order Dt/Tm: 11/23/2022 17:53 CDT ; Comment: Reconstitute 40 mg vial with 10 mL of 0.9% Sodium Chloride and administered IV Slow Push over a period of at least 2 minutes. ALWAYS Communicate Potential Side Effects:: Diarrhea, headache, tiredness levothyroxine 50 mcg (0.05 mg) Tab : levothyroxine 50 mcg (0.05 mg) Tab ; Status: Ordered ; Ordered As Mnemonic: levothyroxine ; Simple Display Line: 50 mcg, 1 tablet(s), Oral, daily before breakfast ; Ordering Provider: Amy Rose DO; Catalog Code: levothyroxine ; Order Dt/Tm: 11/23/2022 18:53 CDT pantoprazole 40 mg Inj : pantoprazole 40 mg Inj ; Status: Ordered ; Ordered As Mnemonic: Protonix ; Simple Display Line: 40 mg, 10 mL, IV SLOW Push, bid ; Ordering Provider: Amy Rose DO; Catalog Code: pantoprazole ; Order Dt/Tm: 11/23/2022 17:57 CDT ; Comment: Reconstitute 40 mg vial with 10 mL of 0.9% Sodium Chloride and administered IV Slow Push over a period of at least 2 minutes. ALWAYS Communicate Potential Side Effects:: Diarrhea, headache, tiredness hEParin 5000 units/1 mL 1 mL Inj : hEParin 5000 units/1 mL 1 mL Inj ; Status: Canceled ; Ordered As Mnemonic: Heparin (SubQ Dosing) ; Simple Display Line: 5,000 unit(s), 1 mL, SubQ, [id number] ; Ordering Provider: Amy Rose DO; Catalog Code: heparin ; Order Dt/Tm: 11/23/2022 17:52 CDT ; Comment: ALWAYS Communicate Potential Side Effects: Redness, pain, swelling, where the needle is placed. Bleeding or bruising allopurinol 100 mg Tab : allopurinol 100 mg Tab ; Status: Ordered ; Ordered As Mnemonic: allopurinol ; Simple Display Line: 100 mg, 1 tablet(s), Oral, bid ; Ordering Provider: Amy Rose DO; Catalog Code: allopurinol ; Order Dt/Tm: 11/23/2022 18:52 CDT atorvastatin 40 mg Tab : atorvastatin 40 mg Tab ; Status: Ordered ; Ordered As Mnemonic: atorvastatin ; Simple Display Line: 40 mg, 1 tablet(s), Oral, qhs ; Ordering Provider: Amy Rose DO; Catalog Code: atorvastatin ; Order Dt/Tm: 11/23/2022 18:52 CDT cloNIDine 0.1 mg Tab : cloNIDine 0.1 mg Tab ; Status: Ordered ; Ordered As Mnemonic: cloNIDine ; Simple Display Line: 0.1 mg, 1 tablet(s), Oral, bid ; Ordering Provider: Amy Rose DO; Catalog Code: cloNIDine ; Order Dt/Tm: 11/23/2022 18:52 CDT metoprolol 50 mg Tab : metoprolol 50 mg Tab ; Status: Ordered ; Ordered As Mnemonic: Metoprolol Tartrate ; Simple Display Line: 50 mg, 1 tablet(s), Oral, bid ; Ordering Provider: Amy Rose DO; Catalog Code:metoprolol ; Order Dt/Tm: 11/23/2022 18:53 CDT potassium chloride 20 mEq Oral Pwdr : potassium chloride 20 mEq Oral Pwdr ; Status: Ordered ; Ordered As Mnemonic: potassium chloride ;Simple Display Line: 20 mEq, 1 packet(s), Oral/Per Tube, Once ; Ordering Provider: Amy Rose DO; Catalog Code: potassium chloride ; Order Dt/Tm: 11/23/2022 17:56 CDT ; Comment: Dissolveeach packet in at least 4 ounces of water or juice. ALWAYS Communicate Potential Side Effects: Mild nausea, diarrhea, gas, stomach pain Maalox ES/Diph. Elix/Lidoc Visc. 5 mL UD Oral Syringe : Maalox ES/Diph. Elix/Lidoc Visc. 5 mL UD Oral Syringe ; Status: Ordered ; Ordered As Mnemonic: Maalox/Diphenhydramine/Lidocaine Visc. ; Simple Display Line: 5 mL, Oral, tid, PRN: mouth sore pain ;Ordering Provider: Amy Rose DO; Catalog Code: lidocaine topical ; Order Dt/Tm: 11/23/2022 17:53 CDT ; Comment: Swish and Swallow Magic mouthwash compound (Lidocaine + Diphenhydramine + Antacid) melatonin 3 mg Tab : melatonin 3 mg Tab ; Status: Ordered ; Ordered As Mnemonic: melatonin ; Simple Display Line: 3 mg, 1 tablet(s), Oral, qhs, PRN: sleep ; Ordering Provider: Amy Rose DO; Catalog Code: melatonin ; Order Dt/Tm: 11/23/2022 17:52 CDT ; Comment: ALWAYS Communicate Potential Side Effects: Feeling sluggish or tired in the morning, headache naloxone 0.4 mg/1 mL Inj : naloxone 0.4 mg/1 mL Inj ; Status: Ordered ; Ordered As Mnemonic: Narcan ; Simple Display Line: 0.2 mg, 0.5 mL, IV SLOW Push, q2min, PRN: opiate reversal ; Ordering Provider: Amy Rose DO; Catalog Code: naloxone ; Order Dt/Tm: 11/23/2022 17:52 CDT ; Comment: ALWAYS Communicate Potential Side Effects: increased heart rate, increased blood pressure, nausea polyethylene glycol 3350 Oral Pwdr 17 gm Packet : polyethylene glycol 3350 Oral Pwdr 17 gm Packet ; Status: Ordered ; Ordered As Mnemonic: MiraLax oral powder for reconstitution ; Simple Display Line: 1 packet(s), Oral, daily, PRN: constipation ; Ordering Provider: Amy Rose DO; Catalog Code: polyethylene glycol 3350 ; Order Dt/Tm:11/23/2022 17:52 CDT ; Comment: Dissolve in 8 ounces of liquid. (If patient is diabetic mix with H2O or Diet 7-up) ALWAYS Communicate Potential Side Effects: bloating, cramping, diarrhea acet-oxyCODONE 325 mg-5 mg Tab : acet-oxyCODONE 325 mg-5 mg Tab ; Status: Ordered ; Ordered As Mnemonic: Percocet 5/325 oral tablet ; Simple Display Line: 1 tablet(s), Oral, [id number], PRN: pain, moderate ; Ordering Provider: Asha Apple DO; Catalog Code: acetaminophen-oxyCODONE ; Order Dt/Tm: 11/23/2022 17:10 CDT ; Comment: DoNot exceed 3 GM Acetaminophen in 24 hours. ALWAYS Communicate Potential Side Effects: Constipation, nausea, vomiting, tiredness, itching, rash. acetaminophen 325 mg Tab : acetaminophen 325 mg Tab ; Status: Ordered ; Ordered As Mnemonic: Tylenol ; Simple Display Line: 650 mg, 2 tablet(s), Oral, [id number], PRN: pain, mild ; Ordering Provider: Asha Apple DO; CatalogCode: acetaminophen ; Order Dt/Tm: 11/23/2022 17:10 CDT ; Comment: Do Not exceed 3 GM Acetaminophenin 24 hours. ALWAYS Communicate Potential Side Effects: Nausea, vomiting, constipation morphine 2 mg/1 mL Inj : morphine 2 mg/1 mL Inj ; Status: Ordered ; Ordered As Mnemonic: morphine ; Simple Display Line: 2mg, 1 mL, IV SLOW Push, [id number], PRN: pain, severe ; Ordering Provider: Asha Apple DO; Catalog Code: morphine ; Order Dt/Tm: 11/23/2022 17:10 CDT ; Comment: For severe pain. If patient has 2 med orders for severe pain, administer IV med when patient is unable to take PO. Slow IV over 4 to 5 minutes ALWAYS Communicate Potential Side Effects: Constipation, nausea, vomiting, sleepiness, tiredness, itching, rash naloxone 0.4 mg/1 mL Inj : naloxone 0.4 mg/1 mL Inj ; Status: Discontinued ; Ordered As Mnemonic: Narcan ; Simple Display Line: 0.2 mg, 0.5 mL, IV SLOW Push, q2min, PRN: opiate reversal ; Ordering Provider: Asha Apple DO; Catalog Code: naloxone ; Order Dt/Tm: 11/23/2022 17:10 CDT ; Comment: ALWAYS Communicate PotentialSide Effects: increased heart rate, increased blood pressure, nausea ondansetron 4 mg/2 mL Inj : ondansetron 4 mg/2 mL Inj ; Status: Ordered ; Ordered As Mnemonic: ondansetron ; Simple Display Line: 4 mg, 2 mL, IV SLOW Push, [id number], PRN: nausea/vomiting ; Ordering Provider: Asha Apple DO;Catalog Code: ondansetron ; Order Dt/Tm: 11/23/2022 17:10 CDT ; Comment: ALWAYS Communicate Potential Side Effects: Headache, tiredness, pain, swelling, itching, irritation where the needle is placed. ondansetron 4 mg/2 mL Inj : ondansetron 4 mg/2 mL Inj ; Status: Completed ; Ordered As Mnemonic: Zofran ; Simple Display Line: 4 mg, 2 mL, IV SLOW Push, Once ; Ordering Provider: Asha Apple DO; Catalog Code: ondansetron ;Order Dt/Tm: 11/23/2022 15:51 CDT ; Comment: ALWAYS Communicate Potential Side Effects: Headache, tiredness, pain, swelling, itching, irritation where the needle is placed. morphine 4 mg/1 mL Inj : morphine 4 mg/1 mL Inj ; Status: Completed ; Ordered As Mnemonic: morphine ; Simple Display Line:4 mg, 1 mL, IV SLOW Push, Once ; Ordering Provider: Asha Apple DO; Catalog Code: morphine ; Order Dt/Tm: 11/23/2022 14:45 CDT ; Comment: Slow IV over 4 to 5 minutes ALWAYS Communicate Potential Side Effects: Constipation, nausea, vomiting, sleepiness, tiredness, itching, rash ondansetron 4 mg/2 mL Inj : ondansetron 4 mg/2 mL Inj ; Status: Completed ; Ordered As Mnemonic: Zofran ; Simple Display Line: 4 mg, 2 mL, IV SLOW Push, Once ; Ordering Provider: Asha Apple DO; Catalog Code: ondansetron ;Order Dt/Tm: 11/23/2022 14:05 CDT ; Comment: ALWAYS Communicate Potential Side Effects: Headache, tiredness, pain, swelling, itching, irritation where the needle is placed. pantoprazole 40 mg Inj : pantoprazole 40 mg Inj ; Status: Completed ; Ordered As Mnemonic: Protonix ; Simple Display Line:40 mg, 10 mL, IV SLOW Push, Once ; Ordering Provider: Asha Apple DO; Catalog Code: pantoprazole; Order Dt/Tm: 11/23/2022 14:15 CDT ; Comment: Reconstitute 40 mg vial with 10 mL of 0.9% Sodium Chloride and administered IV Slow Push over a period of at least 2 minutes. ALWAYS Communicate Potential Side Effects:: Diarrhea, headache, tiredness dexAMETHasone 4 mg/1 mL Inj : dexAMETHasone 4 mg/1 mL Inj ; Status: Completed ; Ordered As Mnemonic: Decadron ; Simple Display Line: 6 mg, 1.5 mL, IV SLOW Push, Once ; Ordering Provider: Asha Apple DO; Catalog Code: dexAMETHasone ; Order Dt/Tm: 11/23/2022 13:31 CDT ; Comment: ALWAYS Communicate Potential Side Effects headache, hyperglycemia, mood swings, weight gain Sodium Chloride 0.9% : Sodium Chloride 0.9% ; Status: Completed ; Ordered As Mnemonic: NS (BOLUS DOSE) ; Simple Display Line: 1,000 mL, 0 mL/hr, IV Piggyback, Once ; Ordering Provider: Asha Apple DO; Catalog Code: Sodium Chloride 0.9% ; Order Dt/Tm: 11/23/2022 13:31 CDT Prescription/Discharge Order levothyroxine : levothyroxine ; Status: Prescribed ; Ordered As Mnemonic: levothyroxine 50 mcg (0.05 mg) oral tablet ; Simple Display Line: 50 mcg, 1 tablet(s), Oral, daily before breakfast, 90 tablet(s), 3 Refill(s) ; Ordering Provider: Emmanuel Stevens MD; Catalog Code: levothyroxine ; Order Dt/Tm: 11/18/2022 13:10 CDT atorvastatin : atorvastatin ; Status: Completed ; Ordered As Mnemonic: atorvastatin 80 mg oral tablet ; Simple Display Line: 1 tablet(s), Oral, daily, 90 tablet(s), 2 Refill(s) ; Ordering Provider: Cynthia Lomas M.D.; Catalog Code: atorvastatin ; Order Dt/Tm: 10/14/2022 08:15 CDT ezetimibe : ezetimibe ; Status: Prescribed ; Ordered As Mnemonic: ezetimibe 10 mg oral tablet ; Simple Display Line: 1 tablet(s), Oral, daily, for 90 day(s), 90 tablet(s), 3 Refill(s) ; Ordering Provider: Jose Martin Lomas M.D.; Catalog Code: ezetimibe ; Order Dt/Tm: 10/14/2022 08:15 CDT amLODIPine : amLODIPine ; Status: Prescribed ; Ordered As Mnemonic: amLODIPine 10 mg oral tablet ; Simple Display Line: 10 mg, 1 tablet(s), Oral, daily, 90 tablet(s), 3 Refill(s) ; Ordering Provider: Emmanuel Stevens MD; Catalog Code: amLODIPine ; Order Dt/Tm: 08/25/2022 07:09 CDT cloNIDine : cloNIDine ; Status: Prescribed ; Ordered As Mnemonic: cloNIDine 0.1 mg oral tablet ; Simple Display Line: 0.1 mg, 1 tablet(s), Oral, bid, for 90 day(s), 180 tablet(s), 3 Refill(s) ; Ordering Provider: Emmanuel Stevens MD; Catalog Code: cloNIDine ; Order Dt/Tm: 07/02/2022 11:03 SOCIAL AND POLITICAL STUDIES PROFESSOR allopurinol : allopurinol ; Status: Prescribed ; Ordered As Mnemonic: allopurinol 100 mg oral tablet ; Simple Display Line: 100 mg, 1 tablet(s), Oral, bid, 180 tablet(s), 3 Refill(s) ; Ordering Provider: Emmanuel Stevens MD; Catalog Code: allopurinol ; Order Dt/Tm: 05/06/2022 14:17 SOCIAL AND POLITICAL STUDIES PROFESSOR metoprolol : metoprolol ; Status: Prescribed ; Ordered As Mnemonic: Metoprolol Tartrate 50 mg oral tablet ; Simple Display Line: 1 tablet(s), Oral, bid, 180 tablet(s), 3 Refill(s) ; Ordering Provider: Jose Martin Lomas M.D.; Catalog Code: metoprolol ; Order Dt/Tm: 12/30/2021 15:40 CDT Home Meds acetaminophen : acetaminophen ; Status: Documented ; Ordered As Mnemonic: Tylenol ; Simple Display Line: 500 mg, Oral, [id number], PRN: pain, mild, 0 Refill(s) ; Catalog Code: acetaminophen ; Order Dt/Tm: 11/23/2022 18:46 CDT atorvastatin : atorvastatin ; Status: Documented ; Ordered As Mnemonic: atorvastatin 40 mg oral tablet ; Simple Display Line: 40 mg, 1 tablet(s), Oral, qhs, 30 tablet(s), 0 Refill(s) ; Catalog Code: atorvastatin ; Order Dt/Tm: 11/23/2022 18:44 CDT lidocaine topical : lidocaine topical ; Status: Documented ; Ordered As Mnemonic: Lidocaine Viscous 2% mucous membrane solution ; Simple Display Line: 0.3 gm, 15 mL, Oral, qid, Gargle and spit, PRN: For Sore Throat, 100 mL ; Catalog Code: lidocaine topical ; Order Dt/Tm: 11/23/2022 16:38 CDT omeprazole : omeprazole ; Status: Documented ; Ordered As Mnemonic: omeprazole 20 mg oral delayed release capsule ; Simple Display Line: 20 mg, 1 capsule(s), Oral, daily before breakfast, 30 capsule(s), 0 Refill(s) ; Catalog Code: omeprazole ; Order Dt/Tm: 11/23/2022 16:38 CDT sucralfate : sucralfate ; Status: Documented ; Ordered As Mnemonic: sucralfate 1 g/10 mL oral suspension ; Simple Display Line: 1 gm, 10 mL, Oral, qid, for 10 day(s), 400 mL, 0 Refill(s) ; Catalog Code: sucralfate ; Order Dt/Tm: 11/23/2022 16:38 CDT leuprolide : leuprolide ; Status: Documented ; Ordered As Mnemonic: Lupron ; Simple Display Line: mg, 0 Refill(s) ; Catalog Code: leuprolide ; Order Dt/Tm: 12/05/2021 10:42 CDT polyethylene glycol 3350 : polyethylene glycol 3350 ; Status: Documented ; Ordered As Mnemonic: MiraLax oral powder for reconstitution ; Simple Display Line: 1 packet(s), Oral, daily, PRN: constipation, 0 Refill(s) ; Ordering Provider: Yuri Bailey M.D.; Catalog Code: polyethylene glycol 3350 ; Order Dt/Tm: 08/20/2020 11:20 CDT aspirin : aspirin ; Status: Documented ; Ordered As Mnemonic: aspirin 81 mg oral enteric coated tablet ; Simple Display Line: 81 mg, 1 tablet(s), Oral, daily, 0 Refill(s) ; Catalog Code: aspirin ; Order Dt/Tm: 07/05/2020 12:18 SOCIAL AND POLITICAL STUDIES PROFESSOR Functional Retail Event And Sales Assistant Card : Copied/Placed in Chart Medical Devices : Coronary artery stent or Vascular stent Radiology Testing Barriers/Precautions : None Medical Devices/Radiology Barriers Verified : Yes Living Situation : Home independently Anticipated Discharge Needs : Home independently Leatha Lantigua RN - 11/23/2022 18:51 CDT Social Habits Social History Reviewed : Yes Leatha Lantigua RN - 11/23/2022 18:51 CDT Social History (As Of: 11/23/2022 19:04 CDT) Tobacco: Never smoker, Smokeless Tobacco use: Never. No Cessation Counseling. (Last Updated: 11/23/2022 19:01 CDT by Leatha Lantigua RN) Alcohol: Never alcohol user (Last Updated: 11/23/2022 19:01 CDT by Leatha Lantigua RN) Substance Abuse: Never drug user (Last Updated: 12/05/2021 10:28 CDT by Dana Bird MA) Cultural/Spiritual Special Practices to be Part of Care : No Pastoral Care to Visit : Yes Leatha Lantigua RN - 11/23/2022 18:51 CDT Psychosocial Domestic Violence Screening : Unable to ask at this time Current Danger to Self or Others : No Current treatment for Cancer on 7700 : Yes Little interest/pleasure in doing things? : No Feeling down, depressed, or hopeless? : No Have you wished you were ? : No Had thoughts of killing yourself? : No Ever attempted to kill yourself? : No Alvaro Lantiguapastor Roldan RN - 11/23/2022 18:51 CDT Elopement Risk Assessment Is pt ambulatory or self-mobile in w/c? : Yes Is pt new admit questioning being here? : No Taylor Alvarado RN - 11/24/2022 05:20 CDT Oncology Distress Assessment Psychosocial Distress Level : 0 No Distress Leatha Lantigua Yuli RN - 11/23/2022 18:51 CDT Advance Directive Advanced Directives : Yes Advance Directive Type : Living will, Medical durable power of immigration attorney Advance Directive Location : Copy obtained from previous records Taylor Alvarado RN - 11/24/2022 05:20 CDT TB Screen Previous Pneumococcal Vaccine? : Unsure Flu Vaccine This Season? : Not Flu Season Pneumococcal Contraindications : No Contraindications Offered Pneumococcal Vaccine : Unable to answer at this time Taylor Alvarado RN - 11/24/2022 05:20 CDT Novel Coronavirus Assessment Novel Coronavirus Current Fever : No Novel Coronavirus Exposed COVID 14 days : No Taylor Alvarado RN - 11/24/2022 05:20 CDT * Charmaine Hinojosa : PERFORM Event Display: Physician/PROSTHETICS LAB TECHNICIAN Communication - Text Authored Date: [id number] Physician/PROSTHETICS LAB TECHNICIAN Communication Entered On: 11/23/2022 17:16 CDT Performed On: 11/23/2022 17:15 CDT by Charmaine Hinojosa MD/PROSTHETICS LAB TECHNICIAN Communication Date/Time Physician/PROSTHETICS LAB TECHNICIAN Communication : 11/23/2022 17:16 CDT Physician/PROSTHETICS LAB TECHNICIAN Communication Type : On Nursing Unit Charmaine Hinojosa - 11/23/2022 17:15 CDT * Sharmin Carpio RN: PERFORM Event Display: Pain Reassessment - Opioids - Text Authored Date: [id number] Pain Reassessment - Opioids Entered On: 11/23/2022 16:35 CDT Performed On: 11/23/2022 16:34 CDT by Sharmin Carpio RN Intervention Information: morphine Performed by Sharmin Carpio RN on 11/23/2022 15:55:00 CDT morphine,4mg IV SLOW Push Pain Response Primary Pain Intensity : 5 (H*) Pain Medication Effective : Yes Interventions : Medications Pain Med Sedation Score : 0 = No sedation; patient awake Sharmin Carpio RN - 11/23/2022 16:34 CDT * Sharmin Carpio RN: PERFORM Event Display: ED Patient Handoff - Text Authored Date: [id number] ED Patient Handoff Entered On: 11/23/2022 16:31 CDT Performed On: 11/23/2022 16:31 CDT by Sharmin Carpio RN Patient Handoff Time Report Called : 11/23/2022 16:24 CDT ED Report Called To : [facility] ED Transfer To Room : 7708 Patient has Belongings : Yes Sharmin Carpio RN - 11/23/2022 16:31 CDT Belongings Patient has Belongings : Yes Sharmin Carpio RN - 11/23/2022 16:31 CDT * Sharmin Carpio RN: PERFORM Event Display: Health History/Procedures - Text Authored Date: [id number] ED Health History/Procedures Entered On: 11/23/2022 16:06 CDT Performed On: 11/23/2022 16:05 CDT by Sharmin Carpio RN Problem List Adult Past Medical History Reviewed : Yes Sharmin Carpio RN - 11/23/2022 16:05 CDT (As Of: 11/23/2022 16:06 CDT) Problems(Active) Anemia of chronic disease (SNOMED CT :737246805 ) Name of Problem: Anemia of chronic disease ; Recorder: Emmanuel Stevens MD; Confirmation: Confirmed ; Classification: Medical ; Code: [id number] ; Contributor System: Telsima ; Last Updated: 12/13/2021 08:36 CDT ; Life Cycle Date: 12/13/2021 ; Life Cycle Status: Active ; Responsible Provider: Emmanuel Stevens MD; Vocabulary: SNOMED CT Ascending aorta dilation (SNOMED CT :959558525 ) Name of Problem: Ascending aorta dilation ; Recorder: Emmanuel Stevens MD; Confirmation: Confirmed ; Classification: Medical ; Code: [id number] ; Contributor System: PowerChart ; Last Updated: 12/05/2021 07:34 CDT ; Life Cycle Date: 12/05/2021 ; Life Cycle Status: Active ; Responsible Provider: Emmanuel Stevens MD; Vocabulary: SNOMED CT CAD (coronary artery disease) (SNOMED CT :83824455 ) Name of Problem: CAD (coronary artery disease) ; Recorder: Yue Guo RN; Confirmation: Confirmed ; Classification: Medical ; Code: [id number] ; Contributor System: PowerChart ; Last Updated: 07/05/2020 11:51 SOCIAL AND POLITICAL STUDIES PROFESSOR ; Life Cycle Date: 07/05/2020 ; Life Cycle Status: Active ; Vocabulary: SNOMED CT CKD (chronic kidney disease), stage III (SNOMED CT :6973381737 ) Name of Problem: CKD (chronic kidney disease), stage III ; Recorder: Emmanuel Stevens MD; Confirmation: Confirmed ; Classification: Medical ; Code: [id number] ; Contributor System: PowerChart ; Last Updated: 08/02/2020 07:32 CDT ; Life Cycle Date: 08/02/2020 ; Life Cycle Status: Active ; Responsible Provider: Emmanuel Stevens MD; Vocabulary: SNOMED CT Gall stone (SNOMED CT :954503401 ) Name of Problem: Gall stone ; Recorder: Emmanuel Stevens MD; Confirmation: Confirmed ; Classification: Medical ; Code: 482874520 ; Contributor System: PowerChart ; Last Updated: 08/02/2020 07:37 CDT ; Life Cycle Date: 08/02/2020 ; Life Cycle Status: Active ; Responsible Provider: Emmanuel Stevens MD; Vocabulary: SNOMED CT Gout (SNOMED CT :149026827 ) Name of Problem: Gout ; Recorder: Yue Guo RN; Confirmation: Confirmed ; Classification: Medical ; Code: 721359593 ; Contributor System: PowerChart ; Last Updated: 07/05/2020 12:07 SOCIAL AND POLITICAL STUDIES PROFESSOR ; Life Cycle Date: 07/05/2020 ; Life Cycle Status: Active ; Vocabulary: SNOMED CT History of endocarditis (SNOMED CT :1439314476 ) Name of Problem: History of endocarditis ; Recorder: Emmanuel Stevens MD; Confirmation: Confirmed; Classification: Medical ; Code: 2028644229 ; Contributor System: PowerChart ; Last Updated: 11/08/2020 09:55 CDT ; Life Cycle Date: 11/08/2020 ; Life Cycle Status: Active ; Responsible Provider: Emmanuel Stevens MD; Vocabulary: SNOMED CT Hypercalcemia (SNOMED CT :632514777 ) Name of Problem: Hypercalcemia ; Recorder: Emmanuel Stevens MD; Confirmation: Confirmed ; Classification: Medical ; Code: 642246242 ; Contributor System: PowerChart ; Last Updated: 07/02/2022 10:58 SOCIAL AND POLITICAL STUDIES PROFESSOR ; Life Cycle Date: 07/02/2022 ; Life Cycle Status: Active ; Responsible Provider: Emmanuel Stevens MD; Vocabulary: SNOMED CT Hyperlipidemia (SNOMED CT :23477687 ) Name of Problem: Hyperlipidemia ; Recorder: Megha Tracey CHIEF LIBRARIAN EXTENSION DEPARTMENT/SENIOR MANAGER [employer]; Confirmation: Confirmed ; Classification: Medical ; Code: 34767688 ; Contributor System: PowerChart ; Last Updated: 07/31/2020 07:19 CDT ; Life Cycle Date: 07/31/2020 ; Life Cycle Status: Active ; Responsible Pr ovider: Megha Tracey CHIEF LIBRARIAN EXTENSION DEPARTMENT/SENIOR MANAGER [employer]; Vocabulary: SNOMED CT Hypertension (SNOMED CT :8673482922 ) Name of Problem: Hypertension ; Recorder: Emmanuel Stevens MD; Confirmation: Confirmed ; Classification: Medical ; Code: 0494586574 ; Contributor System: PowerChart ; Last Updated: 05/09/2021 07:45 SOCIAL AND POLITICAL STUDIES PROFESSOR ; Life Cycle Date: 05/09/2021 ; Life Cycle Status: Active ; Responsible Provider: Emmanuel Stevens MD; Vocabulary: SNOMED CT Hypothyroidism (SNOMED CT :84964604 ) Name of Problem: Hypothyroidism ; Recorder: Kemi Daley MD; Confirmation: Confirmed ; Classification: Medical ; Code: 75805896 ; Contributor System: PowerChart ; Last Updated: 07/05/2021 10:09 SOCIAL AND POLITICAL STUDIES PROFESSOR ; Life Cycle Date: 07/05/2021 ; Life Cycle Status: Active ; Responsible Provider: Kemi Daley MD; Vocabulary: SNOMED CT Large hiatal hernia (SNOMED CT :901980366 ) Name of Problem: Large hiatal hernia ; Recorder: Emmanuel Stevens MD; Confirmation: Confirmed ; Classification: Medical ; Code: 868102115 ; Contributor System: PowerChart ; Last Updated: 08/02/2020 07:37 CDT ; Life Cycle Date: 08/02/2020 ; Life Cycle Status: Active ; Responsible Provider: Nicky Stevens MD; Vocabulary: SNOMED CT Medication monitoring encounter (SNOMED CT :163470303 ) Name of Problem: Medication monitoring encounter ; Recorder: Emmanuel Stevens MD; Confirmation: Confirmed ; Classification: Medical ; Code: 307386634 ; Contributor System: PowerChart ; Last Updated: 08/02/2020 07:32 CDT ; Life Cycle Date: 08/02/2020 ; Life Cycle Status: Active ; Responsible Provider:Emmanuel Stevens MD; Vocabulary: SNOMED CT Near syncope (SNOMED CT :5656908369 ) Name of Problem: Near syncope ; Recorder: Kemi Daley MD; Confirmation: Confirmed ; Classification: Medical ; Code: 1108212256 ; Contributor System: PowerChart ; Last Updated: 01/14/2022 16:22 CDT ; Life Cycle Date: 01/14/2022 ; Life Cycle Status: Active ; Responsible Provider: Kemi Daley MD; Vocabulary: SNOMED CT Persistent atrial fibrillation (SNOMED CT :8411839093 ) Name of Problem: Persistent atrial fibrillation ; Recorder: Jose Martin Lomas M.D.; Confirmation: Confirmed ; Classification: Medical ; Code: 1368240718 ; Contributor System: PowerChart ; Last Updated: 08/26/2020 22:27 CDT ; Life Cycle Date: 08/26/2020 ; Life Cycle Status: Active ; Responsible Provider: Jose Martin Lomas M.D.; Vocabulary: SNOMED CT Prostate cancer (SNOMED CT :4899465263 ) Name of Problem: Prostate cancer ; Recorder: Emmanuel Stevens MD; Confirmation: Confirmed ; Classification: Medical ; Code: 4883782585 ; Contributor System: PowerChart ; Last Updated: 12/05/2021 07:36 CDT ; Life Cycle Date: 12/05/2021 ; Life Cycle Status: Active ; Responsible Provider: Emmanuel Stevens MD; Vocabulary: SNOMED CT Proteinuria (SNOMED CT :75915266 ) Name of Problem: Proteinuria ; Recorder: Emmanuel Stevens MD; Confirmation: Confirmed ; Classification: Medical ; Code: 30316728 ; Contributor System: PowerChart ; Last Updated: 05/23/2021 14:02 SOCIAL AND POLITICAL STUDIES PROFESSOR; Life Cycle Date: 05/23/2021 ; Life Cycle Status: Active ; Responsible Provider: Emmanuel Stevens; Vocabulary: SNOMED CT S/P CABG x 1 (SNOMED CT :7291030037 ) Name of Problem: S/P CABG x 1 ; Recorder: Emmanuel Stevens MD; Confirmation: Confirmed ; Classification: Medical ; Code: 5889828241 ; Contributor System: PowerChart ; Last Updated: 08/02/2020 07:35 CDT ; Life Cycle Date: 08/02/2020 ; Life Cycle Status: Active ; Responsible Provider: Emmanuel Stevens MD; Vocabulary: SNOMED CT S/P mitral valve repair (SNOMED CT :7713834607 ) Name of Problem: S/P mitral valve repair ; Recorder: Emmanuel Stevens MD; Confirmation: Confirmed; Classification: Medical ; Code: 0118281592 ; Contributor System: PowerChart ; Last Updated: 08/02/2020 07:35 CDT ; Life Cycle Date: 08/02/2020 ; Life Cycle Status: Active ; Responsible Provider: Emmanuel Stevens MD; Vocabulary: SNOMED CT S/P prostatectomy (SNOMED CT :729659023 ) Name of Problem: S/P prostatectomy ; Recorder: Emmanuel Stevens MD; Confirmation: Confirmed ; Classification: Medical ; Code: 705102278 ; Contributor System: PowerChart ; Last Updated: 08/02/2020 07:36 CDT ; Life Cycle Date: 08/02/2020 ; Life Cycle Status: Active ; Responsible Provider: Emmanuel Stevens MD; Vocabulary: SNOMED CT Trouble in sleeping (SNOMED CT :549505667 ) Name of Problem: Trouble in sleeping ; Recorder: Megha Tracey CHIEF LIBRARIAN EXTENSION DEPARTMENT/SENIOR MANAGER [employer]; Confirmation: Confirmed ; Classification: Medical ; Code: 084935963 ; Contributor System: PowerChart ; Last Updated: 08/02/2020 08:23 CDT ; Life Cycle Date: 08/02/2020 ; Life Cycle Status: Active ; Responsible Provider: Megha Tracey CHIEF LIBRARIAN EXTENSION DEPARTMENT/SENIOR MANAGER [employer]; Vocabulary: SNOMED CT Diagnoses(Active) Throat pain - Adult Date: 11/23/2022 ; Diagnosis Type: Reason For Visit ; Confirmation: Confirmed ; Clinical Dx: Throat pain - Adult ; Classification: Medical ; Clinical Service: Emergency medicine ; Code: PNED ; Probability: 0 ; Diagnosis Code: [id number] Vomiting Date: 11/23/2022 ; Diagnosis Type: Reason For Visit ; Confirmation: Confirmed ; Clinical Dx: Vomiting ; Classification: Medical ; Clinical Service: Emergency medicine ; Code: PNED ; Probability: 0 ; Diagnosis Code: [id number] Family Health History Family History Reviewed : Yes Sharmin Carpio RN - 11/23/2022 16:05 CDT Family History (As Of: 11/23/2022 16:06 CDT) Mother: Relation: Mother ; Gender: Female ; Nomenclature: Family members ; Value: Positive Nomenclature: Stroke ; Value: Positive Father: Relation: Father ; Gender: Male ; Nomenclature: Family members ; Value: Positive Nomenclature: Heart attack ; Value: Positive Nomenclature: Heart disease ; Value: Positive Procedure History Procedure History Reviewed : Yes Sharmin Carpio RN - 11/23/2022 16:05 CDT - Procedure History (As Of: 11/23/2022 16:06 CDT) Anesthesia Minutes: 0 ; Procedure Name: Biopsy of prostate ; Procedure Minutes: 0 ; Last Reviewed Dt/Tm: 11/23/2022 16:06 CDT Anesthesia Minutes: 0 ; Procedure Name: Prostatectomy ; Procedure Minutes: 0 ; Last Reviewed Dt/Tm:11/23/2022 16:06 CDT Anesthesia Minutes: 0 ; Procedure Name: Cardiac catheterization ; Procedure Minutes: 0 ; Last Reviewed Dt/Tm: 11/23/2022 16:06 CDT Anesthesia Minutes: 0 ; Procedure Name: cardiac stents ; Procedure Minutes: 0 ; Comments: 07/05/2020 11:50 KEVIN - Yue Guo RN 2008, 2018 ; Last Reviewed Dt/Tm: 11/23/2022 16:06 CDT Social Habits Flu Vaccine This Season? : Not Flu Season Novel Coronavirus Current Fever : Yes Novel Coronavirus Exposed COVID 14 days : No Sharmin Carpio RN - 11/23/2022 16:05 CDT Social History (As Of: 11/23/2022 16:06 CDT) Tobacco: Never smoker, Smokeless Tobacco use: Former smokeless tobacco user, quit more than 30 days ago. N/ACessation Counseling. (Last Updated: 12/05/2021 10:27 CDT by Dana Bird MA) Alcohol: Current some day alcohol user (Last Updated: 12/05/2021 10:28 CDT by Dana Bird MA) Substance Abuse: Never drug user (Last Updated: 12/05/2021 10:28 CDT by Dana Bird MA) Medical Devices Medical Devices : Coronary artery stent or Vascular stent Retail Event And Sales Assistant Card : Unable to obtain Radiology Testing Barriers/Precautions : None Sharmin Carpio RN - 11/23/2022 16:05 CDT * Event Display: Authorization to Treat Authored Date: [id number] * Event Display: Authorization to Treat Authored Date: * Event Display: ROI_Correspondence * Event Display: ROI_Correspondence Authored Date: [id number] * Event Display: ROI_Correspondence * Event Display: ROI_Correspondence * Event Display: ROI_Correspondence Authored Date: * Event Display: ROI_Correspondence Authored Date: * Event Display: ROI_Correspondence Nurse Progress note * Asha Mcintyre V RN: PERFORM Event Display: Progress Note-Nurse Authored Date: [id number] Patient discharged home via daughters personal vehicle. IV was removed, vitals stable, education given, and belongings sent with patient. Hospital Summary note * Asha Mcintyre V RN: PERFORM Event Display: Inpatient Patient Summary Authored Date: [id number] [facility] for your health care. Routine checkups and screenings are an important part of staying healthy. [facility] entire network of care is open, safe and ready to provide you with the very best patient-focused care. SHANON CHAPA DOB:1945 Visit Date:11/23/2022 Inpatient Discharge Instructions [facility] would like to thank you for allowing us to assist you with the healthcare needs. The following information includes patient education materials and information regarding your injury/illness. Our entire staff strives to provide a very good experience for our patients and their families. You may receive, by mail, a survey about your experience with us at [facility].PLEASE ENSURE YOU FOLLOW-UP PER THE INSTRUCTIONS BELOW. Location Information ?[facility]?[address] ?? Your Care Team Admitting Physician - Asha Apple DO Attending Physician - Lucy Ferrer M.D. Consulting Physician - Tiana, Reports Tiana, Reports Ted Mcintosh MD Primary Care Physician - Emmanuel Stevens MD Referring Physician - Self, Referred Reason for Your Visit Throat pain - Adult, Vomiting Your Diagnosis Acute pharyngitis Acute upper GI bleed Chronic kidney disease (CKD) Throat pain - Adult Vomiting Discharge Orders Discharge Instructions ?Activity level post Discharge?Activity Level post Discharge?Advance to a full activity level as tolerated ?Discharge Patient to?Discharge Disposition?Home w/Physician Follow-up ?Follow-up instructions post Discharge?Follow-up Instuctions post Discharge??Follow up with ?Follow-up instructions post Discharge?Provider Search?Ted Mcintosh ?? MD ?Follow-up instructions post Discharge?Special Instructions?Phone - [phone] [address] [place], [place] ??[address]. Please call office for follow up appointment. ?Follow-up instructions post Discharge?Follow-up Instuctions post Discharge??Follow up with Primary Care Physician in 1 week ?Special Discharge Instructions?Special Instructions?Have a responsible democrat stay with you for the first 24 hours following your procedure to assist you as needed ?Special Discharge Instructions?Stop Date/Time?11/25/2022 1250 ?Special Discharge Instructions?Special Instructions?You will need a follow up endodcopy about 12 weeks down the line. Discuss with your GI doctor in clinic regarding this. ?Special Discharge Instructions?Stop Date/Time?11/25/2022 1250 ?Diet:?Diet post Discharge?(Specify) ?Diet:?Special Instructions?Please take soft easily digestible low fiberdiet for the next few days and transition as tolerated to your regular diet over next week. ?? Instructions From Your Doctor Nursing Discharge Instructions Inpatient/Observation Instructions: After you leave the hospital, you may call the Nursing Unit within 24 hours of your discharge if you have any questions about these instructions. ??If any medical problems occur or your symptoms get worse, call your doctor immediately. Nursing Unit Valuables Returned to Patient: Not applicable Patient Home Medications Returned: No home medications Activity After Discharge: Resume normal activities as tolerated Diet After Discharge: Other: soft, easily digested foods with low fiber for the next few days, transition to regular diet over the next week Respiratory Therapy After Discharge: Not applicable Incision/Wound Care After Discharge: Not applicable Discharge Medication Planning: Discharge Medication Information provided, Medication Side Effects Information explained and provided, Ability to obtain prescribed medication confirmed No qualifying data available. Tests Pending Procedures History ???Biopsy of prostate???Cardiac catheterization???cardiac stents???Prostatectomy Discharge Vitals Temperature Temporal Artery: 36.5 DegC (11/25/22 13:39:00) Peripheral Pulse Rate: 67 bpm (11/25/22 13:39:00) Respiratory Rate: 16 br/min (11/25/22 13:39:00) Systolic Blood Pressure:??142 mm Hg??High (11/25/22 13:39:00) Diastolic Blood Pressure:??94 mm Hg??High (11/25/22 13:39:00) Oxygen Saturation: 100 % (11/25/22 13:39:00) What to do next Scheduled Follow-Up Appointments Thursday 11:30 AM SOCIAL AND POLITICAL STUDIES PROFESSOR ?? With: Jose Martin Lomas M.D. Where: [facility] [address] [phone] Thursday 10:00 AM CDT ?? With: Kemi Daley MD Where: [facility] [address] You Need to Schedule the Following Appointments Follow Up with??Follow up with Primary Care Provider When??In 1 week 12/02/2022 CDT Why: Call for follow up appointment Follow Up with??Ted Mcintosh When??Within 1 to 2 weeks Why: Call for follow up appointment Where: [address] [place] [address]- [facility] (1) The Following Equipment/Services/Treatments Have Been Arranged For You Discharge Referrals?? No qualifying data available. Medications [facility] provided you with a completed list of medications post discharge, share the list of your current medications with your primary care physician; update the information when medications are discontinued, doses are changed, or new medications (including over the counter products) are added; and carry medication information at all times in the event of emergency situations. What How Much When Instructions Side Effects Next Dose New pantoprazole (pantoprazole 40 mg oral delayed release tablet) 1 tablet(s) By mouth 2 times a day before meals Duration: 90 day(s) Pickup at [facility] #[id number] DO NOT CRUSH Changed sucralfate (sucralfate 1 g/ 10 mL oral suspension) 10 Milliliter By mouth 4 times a day Duration: 30 day(s) Pickup at [facility] #[id number] Unchanged acetaminophen (Tylenol) 500 Milligram By mouth [...] By mouth 2 times a day Unchanged polyethylene glycol 3350 (MiraLax oral powder for reconstitution) 1 packet(s) By mouth Daily as needed for constipation Pharmacy Information [id number][id number]: [address] [place], [place] [phone] ?? What How Much When Comments Stop Taking omeprazole (omeprazole 20 mg oral delayed release capsule) 1 capsule(s) By mouth Daily before breakfast Immunizations This Visit Allergies NKA Problems Ongoing Anemia of chronic disease Ascending aorta dilation CAD (coronary artery disease) CKD (chronic kidney disease), stage III Gall stone Gout History of endocarditis Hypercalcemia Hyperlipidemia Hypertension Hypothyroidism Large hiatal hernia Medication monitoring encounter Persistent atrial fibrillation Prostate cancer Proteinuria S/P CABG x 1 S/P mitral valve repair S/P prostatectomy Trouble in sleeping PatientStated No qualifying data Historical No qualifying data Medication Information ?? Education Materials Chronic Kidney Disease (CKD)?? The role of the kidneys is to remove waste products and extra water from the blood.??When the kidneys don't work as they should, waste products start to build up in the blood. This is called chronic kidney disease (CKD). CKD means that you have kidney damage or a decrease in kidney function lastingat least 3 months. CKD allows extra water, waste, and toxins to build up in the body. This can eventually become life-threatening. You might need dialysis or a kidney transplant to stay alive. This most severe form is called end stage renal disease. Diabetes is the leading causes of chronic renal failure. Other causes include high blood pressure, hardening of the arteries (atherosclerosis), lupus, inflammation of the blood vessels (vasculitis), and past viral or bacterial infections. Certain ycvj-zmw-oxgaxpb pain medicines can cause renal failure when taken often over a long period of time. These include aspirin, ibuprofen, and related anti-inflammatory medicines called NSAIDs (nonsteroidal anti- inflammatory drugs). Home care The following guidelines will help you care for yourself at home: ???If you have diabetes, talk??with your healthcare provider about keeping your blood sugar under control. Ask if you need to make and changes to your diet, lifestyle, or medicines. ???If you have high blood pressure: [place] prescribed medicine to lower your blood pressure to the recommended goal of less than 130/80. oStart a regular exercise program that you enjoy.??Check with your healthcare provider to be sure your planned exercise program is right for you. oEat less salt (sodium).??Your healthcare provider can tell you how much salt per day is safe for you. ???If you are overweight, talk??with your??healthcare provider??about a weight loss plan. ???If you smoke, you must quit. Smoking makes kidney disease worse and puts you at risk for developing other serious illnesses.??Talk??with your healthcare provider about ways to help you quit.?? Formore information, visit the following links: [employer]ww.[employer] Bi[employer].gov/sites/default/files/pdf/xccvgjuk-gkn-rjd-accessible.pdf owww.[employer]free.gov owww.cancer.org/healthy/stayawayfromtobacco/guidetoquittingsmoking/ ???Most people with??CKD need to follow a special diet.?? Be sure you understand yours. In general,you will need to limit protein, salt, potassium, and phosphorus.??You also need to limit how much fluid you drink.?CKD is a risk factor for heart disease. Talk??with your healthcare provider about any other riskfactors you might have and what you can do to lessen them. ???Talk??with your healthcare provider about any medicines you are taking to find out if they need to be reduced or stopped. ???For your own safety, check with your doctor before taking any medicines or supplements. Don't use the following thge-puo-ovozihf medicines. Or consult your healthcare provider before using them: oAspirin and NSAIDs such as ibuprofen or naproxen. Using acetaminophen for fever or pain is OK. oLaxatives and antacids containing magnesium or aluminum oFleet or phospho soda enemas containing phosphorus oCertain stomach acid-blocking medicine such as cimetidine or ranitidine?? oDecongestants containing pseudoephedrine?? oHerbal supplements Follow-up care Follow up with your healthcare provider, or as advised. Contact one of the following for more information: ???[employer] www.aakp.org ???National Kidney Foundation www.kidney.org ???[employer] www.kidneyfund.org ???National Kidney Disease Education Program www.nkdep.nih.gov If an X-ray, ECG (cardiogram), or other diagnostic test was taken, you will be told of any new findings that may affect your care. Call 911 Call 911 if you have any of the following: ???Severe weakness, dizziness, fainting, drowsiness, or confusion ???Chest pain or shortness of breath ???Heart beating fast, slow, or irregularly When to seek medical advice Call your healthcare provider right away if any of these occur: ???Nausea or vomiting ???Fever??of 100.4??F (38??C) or higher, or as directed by your healthcare provider ???Unexpected weight gain or swelling in the legs, ankles, or around the eyes ???Decrease or absent urine output ???New symptoms or symptoms that get worse ?? [id number] [employer]. All rights reserved. This information is not intended as a substitute for professional medical care. Always follow your healthcare professional's instructions. Patient Portal Information [place]. [email or web address] [email or web address] is a secure online tool where you can access your personal health records, test results, visit summaries or request follow up appointments. The portal can be accessed on the hospital website [email or web address] where you can self-enroll if you did not do so on registration. If you need assistance logging in, please call . For questions regarding medications or other healthconcerns after discharge, please contact your physician???s office. Location:[facility] Registration Date and Time:11/23/2022 12:49 CDT Primary Care Physician: Emmanuel Stevens MD, Attending Physician: Lucy Ferrer M.D., Designated Caregiver: I have received the above patient education materials/instructions and have verbalized understanding. 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 Provider Signature: Date/Time: Final Medication List We have provided this final list of active medications as a courtesy so that you can easily update your home records and provide to your physician(s). These are the only medications that you should be taking. Please review carefully and contact your doctor prior to taking any medications NOT on this list. New pantoprazole (pantoprazole 40 mg oral delayed release tablet)1 tablet(s) By mouth 2 times a day before meals for 90 day(s). Refills: 0. Changed sucralfate (sucralfate 1 g/10 mL oral suspension)10 [...] mouth 2 times a day. Refills: 3. polyethylene glycol 3350 (MiraLax oral powder for reconstitution)1 packet(s) By mouth daily as needed constipation. Discontinued omeprazole (omeprazole 20 mg oral delayed release capsule)1 capsule(s) By mouth daily before breakfast. History and physical note * Gerda Bermeo MD: MODIFY, MODIFY, MODIFY, MODIFY, MODIFY, MODIFY, MODIFY, SIGN, VERIFY, PERFORM Event Display: History and Physical Authored Date: [id number] Patient: SHANON CHAPA Age: 76 years Sex: Male : 1945 Associated Diagnoses: None Author: Gerda Bermeo MD Chief Complaint 11/23/2022 12:50 CDT increase lupron dose in may or jun. now c/o n/v x3 days History of Present Illness This is a 76-year-old male with significant past medical history include CAD status post CABG, paroxysmal atrial fibrillation, hypertension, history of endocarditis, anemia of chronic disease, CKD stage III, hypothyroidism, gout presented in the emergency department with complaining of intermittentvomiting, nausea and painful swallowing. I have seen and examined the patient in the morning of 11/24/2022. Patient was laying at bed, lookscomfortable without any acute distress. According to the patient, for last 3-4 months, patient was having intermittent nausea and vomiting, associated with some mild abdominal discomfort. Nausea and vomiting does not related to any particular food. He might see some black vomitus couple of times however did not pay attention to it. He has history of GERD. As patient's symptoms was not improving, daughter insisted him to come to the hospital and checked out. Patient was then came to the emergency department for further management. Review of Systems Constitutional: Fatigue, Decreased activity, No fever, No chills, No sweats, No weakness. Eye: No recent visual problem, No icterus. Ear/Nose/Mouth/Throat: Sore throat, No nasal congestion. Respiratory: No shortness of breath, No cough, No sputum production. Cardiovascular: No palpitations, No bradycardia. Gastrointestinal: Nausea, Vomiting, Heartburn, No diarrhea, No constipation. Abdominal pain: Upper quadrant. Genitourinary: No dysuria, No hematuria. Hematology/Lymphatics: No bruising tendency, No bleeding tendency. Endocrine: No excessive thirst, No polyuria. Immunologic: Not immunocompromised, No recurrent fevers. Musculoskeletal: No joint pain, No muscle pain. Integumentary: No rash, No abrasions. Neurologic: Alert and oriented X4, No abnormal balance. Psychiatric: No anxiety, No depression. Health Status Allergies: Allergies (1) Active Reaction NKA None Documented Current medications: Home Medications: acetaminophen: 500 mg, Oral, [id number], PRN (pain, mild) allopurinol: 100 mg = 1 tablet(s), Oral, bid amLODIPine: 10 mg = 1 tablet(s), Oral, daily aspirin: 81 mg = 1 tablet(s), Oral, daily atorvastatin: 40 mg = 1 tablet(s), Oral, qhs cloNIDine: 0.1 mg = 1 tablet(s), Oral, bid ezetimibe: 1 tablet(s), Oral, daily leuprolide: mg levothyroxine: 50 mcg = 1 tablet(s), Oral, daily before breakfast lidocaine topical: 0.3 gm = 15 mL, Oral, qid, PRN (For Sore Throat), Gargle and spit metoprolol: 1 tablet(s), Oral, bid omeprazole: 20 mg = 1 capsule(s), Oral, daily before breakfast polyethylene glycol 3350: 1 packet(s), Oral, daily, PRN (constipation) sucralfate: 1 gm = 10 mL, Oral, qid Problem list: Active Problems (20) Anemia of chronic disease Ascending aorta dilation CAD (coronary artery disease) CKD (chronic kidney disease), stage III Gall stone Gout History of endocarditis Hypercalcemia Hyperlipidemia Hypertension Hypothyroidism Large hiatal hernia Medication monitoring encounter Persistent atrial fibrillation Prostate cancer Proteinuria S/P CABG x 1 S/P mitral valve repair S/P prostatectomy Trouble in sleeping Histories Family History: Stroke Mother Family members Mother Father Heart disease Father Heart attack Father Procedure history: Biopsy of prostate ([id number]). cardiac stents. Comments: 07/05/2020 11:50 SOCIAL AND POLITICAL STUDIES PROFESSOR - Yue Guo RN 2018 Cardiac catheterization ([id number]). Prostatectomy ([id number]). Social History Social & Psychosocial Habits Alcohol 11/23/2022 Use: Never alcohol user Substance Abuse 12/05/2021 Use: Never drug user Tobacco 11/23/2022 Smoking Tobacco Use: Never smoker Smokeless Tobacco use: Never Tobacco Cessation Counseling Requested No . Physical Examination Vitals Temp BP Pulse RR SpO2 FIO2 Date Wt(kg) Wt(lb) 11/24 07:59 36.8 134/81 --- 16 97 RA 11/23 106.0 233 11/23 20:10 36.2 152/89 81 16 97 RA 11/23 17:04 36.2 176/97 77 12 97 RA 11/23 16:00 ---- 152/86 --- -- 98 RA 11/23 15:30 ---- 163/95 --- -- 98 RA 24 Hr Tmax: 36.8 at 11/24 07:59 36 Hr Tmax: 36.8 at 11/24 07:59 Vital Signs are the last 5 in the past 48 hours. Weights display the last 5 within 7 days. Initial Wt: 11/23 106.0 kg 233 lb Measurements from flowsheet : Measurements 11/23/2022 12:50 CDT Height 182 cm Weight 106 kg Weight Source Actual Body Mass Index 32 kg/m2 General: Alert and oriented, No acute distress. HENT: Normocephalic. Eye: Pupils are equal, round and reactive to light, Extraocular movements are intact. Neck: Supple, No carotid bruit, No jugular venous distention. Respiratory: Lungs are clear to auscultation, Respirations are non-labored. Cardiovascular: Normal rate, Regular rhythm. Gastrointestinal: Soft, Non-distended, Normal bowel sounds. Lymphatics: No lymphadenopathy neck, axilla, groin. Musculoskeletal No swelling. No deformity. Integumentary: Warm, Dry, [place]. Neurologic: Alert, Oriented, No focal deficits. Psychiatric: Cooperative. Review / Management Results review: Labs (Last four charted values) WBC 7.5 (NOV 24) H 10.5 (NOV 23) Hgb L 12.9 (NOV 24) 14.6 (NOV 23) Hct L 37.4 (NOV 24) 41.6 (NOV 23) Plt 212 (NOV 24) 235 (NOV 23) Na L 133 (NOV 24) L 133 (NOV 23) K 3.8 (NOV 24) 3.5 (NOV 23) CO2 L 21 (NOV 24) 23 (NOV 23) Cl 101 (NOV 24) L 97 (NOV 23) Cr H 1.77 (NOV 24) H 1.84 (NOV 23) BUN H 41 (NOV 24) H 39 (NOV 23) Glucose Random H 136 (NOV 24) H 138 (NOV 23) Mg 1.7 (NOV 24) 1.8 (NOV 23) Ca 9.7 (NOV 24) H 10.3 (NOV 23) Troponin 0.04 (NOV 23) . Chest x-ray results Include last 36 hours of Radiology interpretations COMPLETED RADIOLOGY IMAGING STUDIES: CHEST SINGLE VIEW [Auth (Verified)] (11/24 1415): FINAL IMPRESSION:Stable cardiac enlargement and postoperative changes. Large hiatalhernia. No acute pulmonary infiltrate or edema.. Radiology results: Include last 36 hours of Radiology interpretations COMPLETED RADIOLOGY IMAGING STUDIES: CHEST SINGLE VIEW [Auth (Verified)] (11/24 1415): FINAL IMPRESSION:Stable cardiac enlargement and postoperative changes. Large hiatalhernia. No acute pulmonary infiltrate or edema.. . Impression and Plan Diagnosis Sore throat Odynophagia Hematemesis/coffee-ground emesis Nausea/vomiting Patient in several month history of worsening reflux symptoms, nausea, vomiting. Several episodes of hematemesis confirmed in the ED. Differential diagnosis includes esophagitis (infectious versus reflux versus pill induced), gastritis, GERD, PUD, pharyngitis, esophageal web, worsening hiatal hernia, pancreatitis (less likely), or esophageal carcinoma Status post dose of dexamethasone, morphine, Zofran, PPI in the ED Continue with Protonix 40 mg twice daily Magic mouthwash as needed Zofran as needed for nausea, pain control with morphine Monitor hemoglobin Negative COVID and strep tests R/o cardiac issues with EKG and troponin R/o pancreatitis with lipase GI on board, planning for EGD in the morning today. Appreciated recommendation Hypertension Blood pressure little high at presentation Continue to monitor blood pressures Continue home amlodipine and clonidine, will adjust if needed CAD status post CABG Hyperlipidemia Continue with statin and Zetia Hold aspirin History of paroxysmal atrial fibrillation Currently normal sinus rhythm We will obtain EKG Continue metoprolol CKD stage IIIb Mild hyponatremia Baseline creatinine 1.8-2.3 Currently at baseline creatinine, no acute issues Monitor BMP Avoid nephrotoxins Received mild fluid rehydration, will monitor sodium level Hx of Prostate cancer Status post prostatectomy and radiation therapy On androgen suppression therapy with leuprolide Possible contribution to chronic symptoms, though less likely acute. Hypothyroidism Continue levothyroxine History of gout Continue allopurinol Miscellaneous DVT prophylaxis: SCDs, no anticoagulation due to risk of bleeding. [Electronically Signed on 11/24/2022 01:12 PM CDT] Gerda Bermeo MD * Ken Helton M.D.: SIGN Ken Helton M.D.: SIGN, MODIFY, MODIFY, MODIFY, SIGN, VERIFY, PERFORM, MODIFY Amy Rose Resident DO: MODIFY Event Display: History and Physical Authored Date: [id number] Patient: SHANON CHAPA Age: 76 years Sex: Male : 1945 Associated Diagnoses: None Author: Amy Rose Resident DO Basic Information Admit information: Acute care admission on 11/23/2022. Admitting Physician: Ken Helton M.D.. Source of history: Self, Family member. Present at bedside: Family member. Referral source: Emergency department. History limitation: None. Chief Complaint 11/23/2022 12:50 CDT increase lupron dose in may or jun. now c/o n/v x3 days History of Present Illness Mr. Chapa is a 76-year-old male with PMH notable for CAD status post CABG, persistent atrial fibrillation (currently in NSR), hypertension, history of endocarditis status post MVR, anemia of chronic disease, CKD stage IIIb, hypothyroidism, gout, prostate cancer status post prostatectomy and radiotherapy (currently on adjuvant deprivation therapy with leuprolide), and hyperlipidemia who presented to the ED with complaints of painful swallowing and sore throat. The last several months patient has been having increased amounts of abdominal discomfort, acid reflux, and painful swallowing associated with nausea and vomiting. This is gradually gotten worse. In the last few weeks he has been unable to keep down much food or liquid secondary to his symptoms. Garret notes several episodes of hematemesis, often bright red blood, though on 2 occasions includingupon arrival to the ED episodes of coffee-ground emesis. On most occasions the bright red blood with vomitus is between 5 to 10 mL, though on 2 separate occasions he has had coffee-ground emesis of large quantities, approximately 1/2 cup. He notes oftentimes the nausea and vomiting are brought on by difficulty swallowing/painful swallowing. Symptoms are at times relieved with Tums or Pepcid overnight, though over time have been worsening. He notes he was previously on a PPI or Pepcid for symptoms several years ago, though has been discontinued for a while. He denies any knowledge of previous hiatal hernia. He denies any recent cough, congestion, swelling in the throat, prior history of endoscopy, or use of any caustic agents. He denies use of NSAIDs, blood thinners, or any foods out of his normal diet. Few days prior to presentation he was at urgent care where he was treated for possible pharyngitis.He was also provided omeprazole Carafate and lidocaine mouthwash. He has not taken these today. Upon arrival to the ED he was given a dose of dexamethasone after which he had an episode of coffee-ground emesis which was heme positive. He received 1 dose of IV Protonix, morphine for pain, Zofran fornausea, and 1 L normal saline. GI was consulted from the ED and he was admitted for further monitoring. Vitals were stable and notable for temp 36.5, heart rate 74 normal sinus rhythm, saturating 98% on room air, BP elevated at 163/95. Labs were initially notable for negative COVID and strep a DNA. Sodium slightly decreased at 133, potassium 3.5, renal function stable with creatinine 1.84, slightly elevated alkaline phosphatase at 141, and magnesium 1.8. He had mild leukocytosis with WBC 10.5. He was typed and crossed given episode of hematemesis, though hemoglobin is stable at 14.6. Chest x-ray was performed which revealed a large hiatal hernia, though no acute pulmonary abnormalities. He is currently placed on a clear liquid diet and n.p.o. after midnight. . Review of Systems Constitutional: Weakness, Fatigue, No fever, No chills. Eye: No recent visual problem, No visual disturbances. Ear/Nose/Mouth/Throat: Sore throat, No nasal congestion. Respiratory: No shortness of breath, No cough, No sputum production, No hemoptysis. Cardiovascular: No chest pain, No palpitations, No peripheral edema. Gastrointestinal: Nausea, Vomiting, Diarrhea, Constipation, Heartburn, Hematemesis. Abdominal pain: Left, Upper quadrant, The pain is mild, Characterized as ( Cramping/colicky ). Genitourinary: No dysuria, No hematuria. Hematology/Lymphatics: No bleeding tendency, No swollen lymph glands. Endocrine: No polyuria. Immunologic: No recurrent fevers, No recurrent infections. Musculoskeletal: No joint pain, No muscle pain. Integumentary: No rash, No pruritus. Neurologic: Alert and oriented X4, No abnormal balance, No confusion. Psychiatric: No anxiety, No depression. Health Status Allergies: Allergies (1) Active Reaction NKA None Documented Current medications: Home Medications: allopurinol: 100 mg = 1 tablet(s), Oral, bid amLODIPine: 10 mg = 1 tablet(s), Oral, daily aspirin: 81 mg = 1 tablet(s), Oral, daily atorvastatin: 1 tablet(s), Oral, daily cloNIDine: 0.1 mg = 1 tablet(s), Oral, bid ezetimibe: 1 tablet(s), Oral, daily leuprolide: mg levothyroxine: 50 mcg = 1 tablet(s), Oral, daily before breakfast lidocaine topical: 0.3 gm = 15 mL, Oral, qid, PRN (For Sore Throat), Gargle and spit metoprolol: 1 tablet(s), Oral, bid omeprazole: 20 mg = 1 capsule(s), Oral, daily before breakfast polyethylene glycol 3350: 1 packet(s), Oral, daily, PRN (constipation) sucralfate: 1 gm = 10 mL, Oral, qid Problem list: Active Problems (21) Anemia of chronic disease Ascending aorta dilation CAD (coronary artery disease) CKD (chronic kidney disease), stage III Gall stone Gout History of endocarditis Hypercalcemia Hyperlipidemia Hypertension Hypothyroidism Large hiatal hernia Medication monitoring encounter Near syncope Persistent atrial fibrillation Prostate cancer Proteinuria S/P CABG x 1 S/P mitral valve repair S/P prostatectomy Trouble in sleeping Histories Family History: Stroke Mother Family members Mother Father Heart disease Father Heart attack Father Procedure history: Biopsy of prostate ([id number]). cardiac stents. Comments: 07/05/2020 11:50 SOCIAL AND POLITICAL STUDIES PROFESSOR - Yue Guo RN 2018 Cardiac catheterization ([id number]). Prostatectomy ([id number]). Social History Social & Psychosocial Habits Alcohol 12/05/2021 Use: Current some day alcohol Substance Abuse 12/05/2021 Use: Never drug user Tobacco 12/05/2021 Smoking Tobacco Use: Never smoker Smokeless Tobacco use: Former smokeless tobacco Tobacco Cessation Counseling Requested N/A . Physical Examination Vitals Temp BP Pulse RR SpO2 FIO2 Date Wt(kg) Wt(lb) 11/23 16:00 ---- 152/86 --- -- 98 --- 11/23 106.0 233 11/23 15:30 ---- 163/95 --- -- 98 --- 11/23 15:15 ---- 164/89 --- -- 98 --- 11/23 15:00 ---- 160/91 --- -- 98 --- 11/23 14:45 ---- 156/91 --- -- 98 --- 24 Hr Tmax: 36.5 at 11/23 12:50 36 Hr Tmax: 36.5 at 11/23 12:50 Vital Signs are the last 5 in the past 48 hours. Weights display the last 5 within 7 days. Initial Wt: 11/23 106.0 kg 233 lb General: Alert and oriented, No acute distress. HENT: Normocephalic, Normal hearing, Oral mucosa is moist, No pharyngeal erythema. Eye: Extraocular movements are intact, Normal conjunctiva. Neck: Supple, Non-tender, No lymphadenopathy. Respiratory: Lungs are clear to auscultation, Respirations are non-labored, Breath sounds are equal, Symmetrical chest wall expansion. Cardiovascular: Normal rate, Regular rhythm, Good pulses equal in all extremities, No edema, 2/6 systolic murmur. Gastrointestinal: Soft, Non-tender, Non-distended, Normal bowel sounds. Musculoskeletal No tenderness. No swelling. No deformity. Integumentary: Warm, Intact, No pallor, No rash. Neurologic: Alert, Oriented, No focal deficits. Cognition and Speech: Oriented, Speech clear and coherent. Psychiatric: Cooperative, Appropriate mood & affect. Review / Management Results review: Labs (Last four charted values) WBC H 10.5 (NOV 23) Hgb 14.6 (NOV 23) Hct 41.6 (NOV 23) Plt 235 (NOV 23) Na L 133 (NOV 23) K 3.5 (NOV 23) CO2 23 (NOV 23) Cl L 97 (NOV 23) Cr H 1.84 (NOV 23) BUN H 39 (NOV 23) Glucose Random H 138 (NOV 23) Mg 1.8 (NOV 23) Ca H 10.3 (NOV 23) . Chest x-ray results Include last 36 hours of Radiology interpretations COMPLETED RADIOLOGY IMAGING STUDIES: CHEST SINGLE VIEW [Auth (Verified)] (11/23 1416): FINAL IMPRESSION:Stable cardiac enlargement and postoperative changes. Large hiatalhernia. No acute pulmonary infiltrate or edema.. Radiology results: Echocardiogram Complete Study 12/02/21 10:32:22 CONCLUSIONS: 1. Normal left ventricular cavity size, wall thickness and systolic function. The left ventricular ejection fraction is measured by Rhodes???s biplane method at 63 %. Impaired LV relaxation with elevated LA pressure. Paradoxical septal motion consistent with post operative status. 2. Normal right ventricular size. Normal right ventricular systolic function. Normal regional RV wall motion. 3. Mildly dilated left atrium. 4. Trace mitral regurgitation. Mitral valve annuloplasty ring/repair visualized. S/P mitral valve repair with ring annuloplasty. Normal post-surgical appearance of leaflets and ring. 5. The aortic valve is not well visualized. Mild aortic leaflet calcification with mildly elevated systolic velocities without significant gradient consistent with aortic sclerosis. 6. The pulmonic valve is not well visualized. There is mild pulmonic regurgitation. 7. Normal aortic root. Ascending aorta is mildly dilated. . Web Content Editor: EKG (personal interpretation): NSR with LBBB seen on prior EKG in 2020. Documentation reviewed: Reviewed prior records, Reviewed home medications. Condition: Fair. Impression and Plan Diagnosis Sore throat Odynophagia Hematemesis/coffee-ground emesis Nausea/vomiting Patient in several month history of worsening reflux symptoms, nausea, vomiting. Several episodes of hematemesis confirmed in the ED. Differential diagnosis includes esophagitis (infectious versus reflux versus pill induced), gastritis, GERD, PUD, pharyngitis, esophageal web, worsening hiatal hernia, pancreatitis (less likely), or esophageal carcinoma Status post dose of dexamethasone, morphine, Zofran, PPI in the ED Continue with Protonix 40 mg twice daily Magic mouthwash as needed Zofran as needed for nausea, pain control with morphine Monitor hemoglobin Negative COVID and strep tests R/o cardiac issues with EKG and troponin R/o pancreatitis with lipase GI consulting: Recommend EGD on 11/24/2022, hold ASA, n.p.o. after midnight hold anticoagulation 2/2 risk of bleeding Hypertension Hypertensive on arrival Continue to monitor blood pressures Continue home amlodipine and clonidine CAD status post CABG Hyperlipidemia Continue with statin and Zetia Hold aspirin History of atrial fibrillation Currently normal sinus rhythm We will obtain EKG Continue metoprolol CKD stage IIIb Mild hyponatremia Baseline creatinine 1.8-2.3 Currently at baseline creatinine, no acute issues Monitor BMP Avoid nephrotoxins Received mild fluid rehydration, will monitor sodium level Hx of Prostate cancer Status post prostatectomy and radiation therapy On androgen suppression therapy with leuprolide Possible contribution to chronic symptoms, though less likely acute. Hypothyroidism Continue levothyroxine History of gout Continue allopurinol Miscellaneous DVT prophylaxis: SCDs, no anticoagulation due to risk of bleeding GI prophylaxis: PPI BID Diet: clear liquid, NPO after midnight Activity: As tolerated, PT to eval Disposition: Per clinical course CODE STATUS: Level 1 - discussed with patient and daughters present at bedside . Course: Progressing as expected. [Electronically Signed on 11/23/2022 06:50 PM CDT] Amy Rose, Resident DO [Electronically Signed on 11/24/2022 08:29 AM CDT] Ken Helton M.D. EKG study * Event Display: EKG Report * Event Display: EKG Regular * Event Display: EKG Regular Authored Date: Vent Rate: 71 bpm RR Interval: 834 msec NC Interval: 193 msec QRS Duration: 173 msec QT Interval: 471 msec QTC Interval: 494 msec P-R-T [place]: 70 - 21 - 170 degrees SINUS RHYTHM LEFT BUNDLE BRANCH BLOCK Compared to prior on 15-Aug-2020 01:12:36 PM: Sinus rhythm has replaced A.FIb with RVR Electronically Signed By: Nicole Crowley MD Consult note * Ted Mcintosh MD: PERFORM, SIGN, VERIFY Event Display: Consultation Authored Date: Patient: SHANON CHAPA Age: 76 years Sex: Male : 1945 Associated Diagnoses: None Author: Ted Mcintosh MD Consultation Information Consultation Date: 11/23/2022. Referring Physician: Ken Helton M.D.. Reason for Consultation: hematemesis. History of Present Illness General complaint: 76 year old man with HTN gout HLP CAD on asa, CKD, prostate cancer came to the ER due to nausea vomiting. he is a poor historian. he has diarrhea since lupron was started, he also gets n/v and mid abd pain after lupron shots. He has sore throat. he vomited red to cofee coloed material in the ER. he has GERD and takes TUMS but no PUD. he denies melena or blood in the stool. Review of Systems Constitutional: Fatigue, No fever, No chills, No sweats, No weakness, No decreased activity. Eye: No recent visual problem, No icterus, No blurring, No double vision, No visual disturbances. Ear/Nose/Mouth/Throat: No decreased hearing, No ear pain, No nasal congestion, No sore throat. Respiratory: No shortness of breath, No cough, No sputum production. Cardiovascular: No palpitations, No bradycardia, No tachycardia, No syncope. Gastrointestinal: Abdominal pain: Characterized as ( See HPI ). Genitourinary: No dysuria, No hematuria. Hematology/Lymphatics: No bruising tendency, No bleeding tendency, No swollen lymph glands. Endocrine: No excessive thirst, No polyuria, No cold intolerance, No heat intolerance. Immunologic: No recurrent fevers, No recurrent infections. Musculoskeletal: Joint pain, No neck pain, No muscle pain. Integumentary: No rash, No pruritus, No skin lesion. Neurologic: Alert and oriented X4, No abnormal balance, No numbness, No tingling. Psychiatric Health Status Allergies: Allergies (1) Active Reaction NKA None Documented Histories Problem list: Active Problems (21) Anemia of chronic disease Ascending aorta dilation CAD (coronary artery disease) CKD (chronic kidney disease), stage III Gall stone Gout History of endocarditis Hypercalcemia Hyperlipidemia Hypertension Hypothyroidism Large hiatal hernia Medication monitoring encounter Near syncope Persistent atrial fibrillation Prostate cancer Proteinuria S/P CABG x 1 S/P mitral valve repair S/P prostatectomy Trouble in sleeping Family History: Stroke Mother Family members Mother Father Heart disease Father Heart attack Father Procedure history: Biopsy of prostate ([id number]). cardiac stents. Comments: 07/05/2020 11:50 KEVIN - Yue Guo RN 2018 Cardiac catheterization ([id number]). Prostatectomy ([id number]). Social History Social & Psychosocial Habits Alcohol 12/05/2021 Use: Current some day alcohol Substance Abuse 12/05/2021 Use: Never drug user Tobacco 12/05/2021 Smoking Tobacco Use: Never smoker Smokeless Tobacco use: Former smokeless tobacco Tobacco Cessation Counseling Requested N/A . Physical Exam Vitals Temp BP Pulse RR SpO2 FIO2 Date Wt(kg) Wt(lb) 11/23 17:04 36.2 176/97 77 12 97 RA 11/23 106.0 233 11/23 16:00 ---- 152/86 --- -- 98 RA 11/23 15:30 ---- 163/95 --- -- 98 RA 11/23 15:15 ---- 164/89 --- -- 98 RA 11/23 15:00 ---- 160/91 --- -- 98 24 Hr Tmax: 36.5 at 11/23 12:50 36 Hr Tmax: 36.5 at 11/23 12:50 Vital Signs are the last 5 in the past 48 hours. Weights display the last 5 within 7 days. Initial Wt: 11/23 106.0 kg 233 lb Measurements from flowsheet : Measurements 11/23/2022 12:50 CDT Height 182 cm Weight 106 kg Weight Source Actual Body Mass Index 32 kg/m2 Intake and Output Intake Output Balance 11/23/2022 7a-3p 1000 0 1000 3p-11p 0 0 0 As of 17:14 11p-7a 0 0 0 Totals 1000 0 1000 11/22/2022 7a-3p 0 0 0 3p-11p 0 0 0 11p-7a 0 0 0 Totals 0 0 0 11/21/2022 7a-3p 0 0 0 3p-11p 0 0 0 11p-7a 0 0 0 Totals 0 0 0 General: Alert and oriented, No acute distress. HENT: Normocephalic, Normal hearing, Oral mucosa is moist. Eye: Pupils are equal, round and reactive to light, Extraocular movements are intact, Normal conjunctiva. Respiratory: Lungs are clear to auscultation, Respirations are non-labored, Breath sounds are equal, Symmetrical chest wall expansion. Cardiovascular: Normal rate, Regular rhythm, No murmur, No gallop, Good pulses equal in all extremities. Gastrointestinal: Soft, Non-tender, Non-distended, Normal bowel sounds, No organomegaly, No ascites. Lymphatics: No lymphadenopathy neck, axilla, groin. Musculoskeletal Normal range of motion. No swelling. No deformity. Feet: Normal by visual exam. Integumentary: No rash. Neurologic: Alert, Oriented, No focal deficits. Cognition and Speech: Oriented, Speech clear and coherent. Psychiatric: Cooperative, Appropriate mood & affect. Neck: Supple, Non-tender, No thyromegaly. Genitourinary: No costovertebral angle tenderness. Pertinent Findings Results review: Labs (Last four charted values) WBC H 10.5 (NOV 23) Hgb 14.6 (NOV 23) Hct 41.6 (NOV 23) Plt 235 (NOV 23) Na L 133 (NOV 23) K 3.5 (NOV 23) CO2 23 (NOV 23) Cl L 97 (NOV 23) Cr H 1.84 (NOV 23) BUN H 39 (NOV 23) Glucose Random H 138 (NOV 23) Mg 1.8 (NOV 23) Ca H 10.3 (NOV 23) . Assessment Impression: 1. hematemesis/coffee colored emesis due to MW tear vs esophagitis vs manuel ulcer vs AVM vs PUD. his n/v intermittently could be due to lupron shots clear diet npo after mn monitor cbc protonix 40mg BID EGD tomorrow risks discussed d/w daughters 2. CAD hold asa 3. Sore throat covid and strep neg will do EGD tomorrow to eval for esophageal origin. [Electronically Signed on 11/23/2022 05:18 PM CDT] Ted Mcintosh MD Nurse Emergency department Note * Sharmin Carpio RN: PERFORM Event Display: ED Note-Nursing Authored Date: [id number] ED Document Historical Medications Entered On: 11/23/2022 16:38 CDT Performed On: 11/23/2022 16:35 CDT by Sharmin Carpio RN ED Medication List Medication List (As Of: 11/23/2022 16:38 CDT) Normal Order dexAMETHasone 4 mg/1 mL Inj : dexAMETHasone 4 mg/1 mL Inj ; Status: Completed ; Ordered As Mnemonic: Decadron ; Simple Display Line: 6 mg, 1.5 mL, IV SLOW Push, Once ; Ordering Provider: Asha Apple DO; Catalog Code: dexAMETHasone ; Order Dt/Tm: 11/23/2022 13:31 CDT ; Comment: ALWAYS Communicate Potential Side Effects headache, hyperglycemia, mood swings, weight gain morphine 4 mg/1 mL Inj : morphine 4 mg/1 mL Inj ; Status: Completed ; Ordered As Mnemonic: morphine ; Simple Display Line:4 mg, 1 mL, IV SLOW Push, Once ; Ordering Provider: Asha Apple DO; Catalog Code: morphine ; Order Dt/Tm: 11/23/2022 14:45 CDT ; Comment: Slow IV over 4 to 5 minutes ALWAYS Communicate Potential Side Effects: Constipation, nausea, vomiting, sleepiness, tiredness, itching, rash ondansetron 4 mg/2 mL Inj : ondansetron 4 mg/2 mL Inj ; Status: Completed ; Ordered As Mnemonic: Zofran ; Simple Display Line: 4 mg, 2 mL, IV SLOW Push, Once ; Ordering Provider: Asha Apple DO; Catalog Code: ondansetron ; Order Dt/Tm: 11/23/2022 15:51 CDT ; Comment: ALWAYS Communicate Potential Side Effects: Headache, tiredness, pain, swelling, itching, irritation where the needle is placed. ondansetron 4 mg/2 mL Inj : ondansetron 4 mg/2 mL Inj ; Status: Completed ; Ordered As Mnemonic: Zofran ; Simple Display Line: 4 mg, 2 mL, IV SLOW Push, Once ; Ordering Provider: Asha Apple DO; Catalog Code: ondansetron ;Order Dt/Tm: 11/23/2022 14:05 CDT ; Comment: ALWAYS Communicate Potential Side Effects: Headache, tiredness, pain, swelling, itching, irritation where the needle is placed. pantoprazole 40 mg Inj : pantoprazole 40 mg Inj ; Status: Completed ; Ordered As Mnemonic: Protonix ; Simple Display Line:40 mg, 10 mL, IV SLOW Push, Once ; Ordering Provider: Asha Apple DO; Catalog Code: pantoprazole; Order Dt/Tm: 11/23/2022 14:15 CDT ; Comment: Reconstitute 40 mg vial with 10 mL of 0.9% Sodium Chloride and administered IV Slow Push over a period of at least 2 minutes. ALWAYS Communicate Potential Side Effects:: Diarrhea, headache, tiredness Sodium Chloride 0.9% : Sodium Chloride 0.9% ; Status: Completed ; Ordered As Mnemonic: NS (BOLUS DOSE) ; Simple Display Line: 1,000 mL, 0 mL/hr, IV Piggyback, Once ; Ordering Provider: Asha Apple DO; Catalog Code: Sodium Chloride 0.9% ; Order Dt/Tm: 11/23/2022 13:31 CDT Prescription/Discharge Order allopurinol : allopurinol ; Status: Prescribed ; Ordered As Mnemonic: allopurinol 100 mg oral tablet ; Simple Display Line: 100 mg, 1 tablet(s), Oral, bid, 180 tablet(s), 3 Refill(s) ; Ordering Provider: Emmanuel Stevens MD; Catalog Code: allopurinol ; Order Dt/Tm: 05/06/2022 14:17 SOCIAL AND POLITICAL STUDIES PROFESSOR amLODIPine : amLODIPine ; Status: Prescribed ; Ordered As Mnemonic: amLODIPine 10 mg oral tablet ; Simple Display Line: 10 mg, 1 tablet(s), Oral, daily, 90 tablet(s), 3 Refill(s) ; Ordering Provider: Emmanuel Stevens MD; Catalog Code: amLODIPine ; Order Dt/Tm: 08/25/2022 07:09 CDT atorvastatin : atorvastatin ; Status: Prescribed ; Ordered As Mnemonic: atorvastatin 80 mg oral tablet ; Simple Display Line: 1 tablet(s), Oral, daily, 90 tablet(s), 2 Refill(s) ; Ordering Provider: Jose Martin Lomas M.D.; Catalog Code: atorvastatin ; Order Dt/Tm: 10/14/2022 08:15 CDT cloNIDine : cloNIDine ; Status: Prescribed ; Ordered As Mnemonic: cloNIDine 0.1 mg oral tablet ; Simple Display Line: 0.1 mg, 1 tablet(s), Oral, bid, for 90 day(s), 180 tablet(s), 3 Refill(s) ; Ordering Provider: Emmanuel Stevens MD; Catalog Code: cloNIDine ; Order Dt/Tm: 07/02/2022 11:03 SOCIAL AND POLITICAL STUDIES PROFESSOR ezetimibe : ezetimibe ; Status: Prescribed ; Ordered As Mnemonic: ezetimibe 10 mg oral tablet ; Simple Display Line: 1 tablet(s), Oral, daily, for 90 day(s), 90 tablet(s), 3 Refill(s) ; Ordering Provider: Jose Martin Lomas M.D.; Catalog Code: ezetimibe ; Order Dt/Tm: 10/14/2022 08:15 CDT levothyroxine : levothyroxine ; Status: Prescribed ; Ordered As Mnemonic: levothyroxine 50 mcg (0.05 mg) oral tablet ; Simple Display Line: 50 mcg, 1 tablet(s), Oral, daily before breakfast, 90 tablet(s), 3 Refill(s) ; Ordering Provider: Emmanuel Stevens MD; Catalog Code: levothyroxine ; Order Dt/Tm: 11/18/2022 13:10 CDT metoprolol : metoprolol ; Status: Prescribed ; Ordered As Mnemonic: Metoprolol Tartrate 50 mg oral tablet ; Simple Display Line: 1 tablet(s), Oral, bid, 180 tablet(s), 3 Refill(s) ; Ordering Provider: Jose Martin Lomas M.D.; Catalog Code: metoprolol ; Order Dt/Tm: 12/30/2021 15:40 CDT Home Meds aspirin : aspirin ; Status: Documented ; Ordered As Mnemonic: aspirin 81 mg oral enteric coated tablet ; Simple Display Line: 81 mg, 1 tablet(s), Oral, daily, 0 Refill(s) ; Catalog Code: aspirin ; Order Dt/Tm: 07/05/2020 12:18 SOCIAL AND POLITICAL STUDIES PROFESSOR leuprolide : leuprolide ; Status: Documented ; Ordered As Mnemonic: Lupron ; Simple Display Line: mg, 0 Refill(s) ; Catalog Code: leuprolide ; Order Dt/Tm: 12/05/2021 10:42 CDT lidocaine topical : lidocaine topical ; Status: Documented ; Ordered As Mnemonic: Lidocaine Viscous 2% mucous membrane solution ; Simple Display Line: 0.3 gm, 15 mL, Oral, qid, Gargle and spit, PRN: For Sore Throat, 100 mL ; Catalog Code: lidocaine topical ; Order Dt/Tm: 11/23/2022 16:38 CDT omeprazole : omeprazole ; Status: Documented ; Ordered As Mnemonic: omeprazole 20 mg oral delayed release capsule ; Simple Display Line: 20 mg, 1 capsule(s), Oral, daily before breakfast, 30 capsule(s), 0 Refill(s) ; Catalog Code: omeprazole ; Order Dt/Tm: 11/23/2022 16:38 CDT polyethylene glycol 3350 : polyethylene glycol 3350 ; Status: Documented ; Ordered As Mnemonic: MiraLax oral powder for reconstitution ; Simple Display Line: 1 packet(s), Oral, daily, PRN: constipation, 0 Refill(s) ; Ordering Provider: Yuri Bailey M.D.; Catalog Code: polyethylene glycol 3350 ; Order Dt/Tm: 08/20/2020 11:20 CDT sucralfate : sucralfate ; Status: Documented ; Ordered As Mnemonic: sucralfate 1 g/10 mL oral suspension ; Simple Display Line: 1 gm, 10 mL, Oral, qid, for 10 day(s), 400 mL, 0 Refill(s) ; Catalog Code: sucralfate ; Order Dt/Tm: 11/23/2022 16:38 CDT * Sharmin Carpio RN: PERFORM Event Display: ED Note-Nursing Authored Date: [id number] ED Patient Rounds Entered On: 11/23/2022 16:07 CDT Performed On: 11/23/2022 16:06 CDT by Sharmin Carpio RN Visual Check Visual Check Performed : Yes (Comment: pt resting, NAD, no needs, daughters at the bedside, lights dimmed [Sharmin Carpio RN - 11/23/2022 16:06 CDT] ) IV Infusion Assessment : No complications Sharmin Carpio RN - 11/23/2022 16:06 CDT * Mony Angulo: PERFORM Event Display: ED Note-Nursing Authored Date: [id number] ED Patient Rounds Entered On: 11/23/2022 14:21 CDT Performed On: 11/23/2022 14:20 CDT by Mony Angulo Visual Check Visual Check Performed : Yes Interventions Offered : Change of position IV Infusion Assessment : No complications Medication Adverse Reactions : No Mony Angulo - 11/23/2022 14:20 CDT Assess/Tx Level of Consciousness : Alert Orientation : Oriented x 4 Affect/Behavior : Appropriate, Calm, Cooperative Skin Color ED : Normal for ethnicity Rounding Assessment : Updated on plan of care, No change in condition, No distress observed/reported Triage Treatments : Saline lock initiated, Blood Drawn Mony Angulo - 11/23/2022 14:20 CDT * Nilam Jhaveri RN: PERFORM Event Display: ED Note-Nursing Authored Date: [id number] ED Triage Entered On: 11/23/2022 12:50 CDT Performed On: 11/23/2022 12:50 CDT by Jenna Charles RN Reason For Visit Reg STK Was Last Known Well Date and Time Witnessed : N/A ED Allergies/Home Meds : Document assessment Workman's Comp : No Temperature Temporal Artery : 36.5 DegC(Converted to: 97.7 DegF) Respiratory Rate : 18 br/min Peripheral Pulse Rate : 74 bpm Systolic Blood Pressure : 130 mm Hg Diastolic Blood Pressure : 89 mm Hg Oxygen Saturation : 97 % Height : 182 cm(Converted to: 6 ft 0 inch(es)) Weight Source : Actual Weight : 106 kg(Converted to: 233.690 pound(s)) Body Mass Index : 32 kg/m2 Primary Pain Intensity : 0 Chief Complaint Description : increase lupron dose in may or jun. now c/o n/v x3 days Nilam Jhaveri RN - 11/23/2022 12:54 CDT DCP GENERIC CODE Tracking Acuity : 3 - Urgent Nilam Jhaveri Lu RN - 11/23/2022 12:54 CDT Tracking Group : Emergency Department MelvinJenna espinoza Skylar RN - 11/23/2022 12:50 CDT (As Of: 11/23/2022 12:58 CDT) Problems(Active) Anemia of chronic disease (SNOMED CT :042180762 ) Name of Problem: Anemia of chronic disease ; Recorder: Emmanuel Stevens MD; Confirmation: Confirmed ; Classification: Medical ; Code: [id number] ; Contributor System: [employer] ; Last Updated: 12/13/2021 08:36 CDT ; Life Cycle Date: 12/13/2021 ; Life Cycle Status: Active ; Responsible Provider: Emmanuel Stevens MD; Vocabulary: SNOMED CT Ascending aorta dilation (SNOMED CT :191624763 ) Name of Problem: Ascending aorta dilation ; Recorder: Emmanuel Stevens MD; Confirmation: Confirmed ; Classification: Medical ; Code: [id number] ; Contributor System: [employer] ; Last Updated: 12/05/2021 07:34 CDT ; Life Cycle Date: 12/05/2021 ; Life Cycle Status: Active ; Responsible Provider: Emmanuel Stevens MD; Vocabulary: SNOMED CT CAD (coronary artery disease) (SNOMED CT :73415746 ) Name of Problem: CAD (coronary artery disease) ; Recorder: Yue Guo RN; Confirmation: Confirmed ; Classification: Medical ; Code: [id number] ; Contributor System: [employer] ; Last Updated: 07/05/2020 11:51 SOCIAL AND POLITICAL STUDIES PROFESSOR ; Life Cycle Date: 07/05/2020 ; Life Cycle Status: Active ; Vocabulary: SNOMED CT CKD (chronic kidney disease), stage III (SNOMED CT :9852948293 ) Name of Problem: CKD (chronic kidney disease), stage III ; Recorder: Emmanuel Stevens MD; Confirmation: Confirmed ; Classification: Medical ; Code: [id number] ; Contributor System: [employer] ; Last Updated: 08/02/2020 07:32 CDT ; Life Cycle Date: 08/02/2020 ; Life Cycle Status: Active ; Responsible Provider: Emmanuel Stevens MD; Vocabulary: SNOMED CT Gall stone (SNOMED CT :736347428 ) Name of Problem: Gall stone ; Recorder: Emmanuel Stevens MD; Confirmation: Confirmed ; Classification: Medical ; Code: 798337298 ; Contributor System: [employer] ; Last Updated: 08/02/2020 07:37 CDT ; Life Cycle Date: 08/02/2020 ; Life Cycle Status: Active ; Responsible Provider: Emmanuel Stevens MD; Vocabulary: SNOMED CT Gout (SNOMED CT :788341728 ) Name of Problem: Gout ; Recorder: Yue Guo RN; Confirmation: Confirmed ; Classification: Medical ; Code: [id number] ; Contributor System: [employer] ; Last Updated: 07/05/2020 12:07 SOCIAL AND POLITICAL STUDIES PROFESSOR ; Life Cycle Date: 07/05/2020 ; Life Cycle Status: Active ; Vocabulary: SNOMED CT History of endocarditis (SNOMED CT :9532450408 ) Name of Problem: History of endocarditis ; Recorder: Emmanuel Stevens MD; Confirmation: Confirmed; Classification: Medical ; Code: [id number] ; Contributor System: [employer] ; Last Updated: 11/08/2020 09:55 CDT ; Life Cycle Date: 11/08/2020 ; Life Cycle Status: Active ; Responsible Provider: Emmanuel Stevens MD; Vocabulary: SNOMED CT Hypercalcemia (SNOMED CT :422250344 ) Name of Problem: Hypercalcemia ; Recorder: Emmanuel Stevens MD; Confirmation: Confirmed ; Classification: Medical ; Code: 643790097 ; Contributor System: [employer] ; Last Updated: 07/02/2022 10:58 SOCIAL AND POLITICAL STUDIES PROFESSOR ; Life Cycle Date: 07/02/2022 ; Life Cycle Status: Active ; Responsible Provider: Emmanuel Stevens MD; Vocabulary: SNOMED CT Hyperlipidemia (SNOMED CT :81542278 ) Name of Problem: Hyperlipidemia ; Recorder: Gratza, Megha M CHIEF LIBRARIAN EXTENSION DEPARTMENT/SENIOR MANAGER [employer]; Confirmation: Confirmed ; Classification: Medical ; Code: 74800176 ; Contributor System: [employer] ; Last Updated: 07/31/2020 07:19 CDT ; Life Cycle Date: 07/31/2020 ; Life Cycle Status: Active ; Responsible Pr ovider: Megha Tracey CHIEF LIBRARIAN EXTENSION DEPARTMENT/SENIOR MANAGER [employer]; Vocabulary: SNOMED CT Hypertension (SNOMED CT :5333601550 ) Name of Problem: Hypertension ; Recorder: Emmanuel Stevens MD; Confirmation: Confirmed ; Classification: Medical ; Code: 1149722203 ; Contributor System: [employer] ; Last Updated: 05/09/2021 07:45 SOCIAL AND POLITICAL STUDIES PROFESSOR ; Life Cycle Date: 05/09/2021 ; Life Cycle Status: Active ; Responsible Provider: Emmanuel Stevens MD; Vocabulary: SNOMED CT Hypothyroidism (SNOMED CT :57509086 ) Name of Problem: Hypothyroidism ; Recorder: Kemi Daley MD; Confirmation: Confirmed ; Classification: Medical ; Code: 66706237 ; Contributor System: [employer] ; Last Updated: 07/05/2021 10:09 SOCIAL AND POLITICAL STUDIES PROFESSOR ; Life Cycle Date: 07/05/2021 ; Life Cycle Status: Active ; Responsible Provider: Kemi Daley MD; Vocabulary: SNOMED CT Large hiatal hernia (SNOMED CT :060230814 ) Name of Problem: Large hiatal hernia ; Recorder: Emmanuel Stevens MD; Confirmation: Confirmed ; Classification: Medical ; Code: 870453701 ; Contributor System: Power[employer] ; Last Updated: 08/02/2020 07:37 CDT ; Life Cycle Date: 08/02/2020 ; Life Cycle Status: Active ; Responsible Provider: Nicky Stevens MD; Vocabulary: SNOMED CT Medication monitoring encounter (SNOMED CT :966353558 ) Name of Problem: Medication monitoring encounter ; Recorder: Emmanuel Stevens MD; Confirmation: Confirmed ; Classification: Medical ; Code: [id number] ; Contributor System: [employer] ; Last Updated: 08/02/2020 07:32 CDT ; Life Cycle Date: 08/02/2020 ; Life Cycle Status: Active ; Responsible Provider:Emmanuel Stevens MD; Vocabulary: SNOMED CT Near syncope (SNOMED CT :1774216663 ) Name of Problem: Near syncope ; Recorder: Kemi Daley MD; Confirmation: Confirmed ; Classification: Medical ; Code: 3750984248 ; Contributor System: Power[employer] ; Last Updated: 01/14/2022 16:22 CDT ; Life Cycle Date: 01/14/2022 ; Life Cycle Status: Active ; Responsible Provider: Keyana Daley MD; Vocabulary: SNOMED CT Persistent atrial fibrillation (SNOMED CT :8803990904 ) Name of Problem: Persistent atrial fibrillation ; Recorder: Jose Martin Lomas M.D.; Confirmation: Confirmed ; Classification: Medical ; Code: [id number] ; Contributor System: Power[employer] ; Last Updated: 08/26/2020 22:27 CDT ; Life Cycle Date: 08/26/2020 ; Life Cycle Status: Active ; Responsible Provider: Jose Martin Lomas M.D.; Vocabulary: SNOMED CT Prostate cancer (SNOMED CT :6410727060 ) Name of Problem: Prostate cancer ; Recorder: Emmanuel Stevens MD; Confirmation: Confirmed ; Classification: Medical ; Code: [id number] ; Contributor System: Power[employer] ; Last Updated: 12/05/2021 07:36 CDT ; Life Cycle Date: 12/05/2021 ; Life Cycle Status: Active ; Responsible Provider: Emmanuel Stevens MD; Vocabulary: SNOMED CT Proteinuria (SNOMED CT :49276224 ) Name of Problem: Proteinuria ; Recorder: Emmanuel Stevens MD; Confirmation: Confirmed ; Classification: Medical ; Code: 35168944 ; Contributor System: Power[employer] ; Last Updated: 05/23/2021 14:02 SOCIAL AND POLITICAL STUDIES PROFESSOR; Life Cycle Date: 05/23/2021 ; Life Cycle Status: Active ; Responsible Provider: Emmanuel Stevens; Vocabulary: SNOMED CT S/P CABG x 1 (SNOMED CT :7465013370 ) Name of Problem: S/P CABG x 1 ; Recorder: Emmanuel Stevens MD; Confirmation: Confirmed ; Classification: Medical ; Code: [id number] ; Contributor System: Power[employer] ; Last Updated: 08/02/2020 07:35 CDT ; Life Cycle Date: 08/02/2020 ; Life Cycle Status: Active ; Responsible Provider: Emmanuel Stevens MD; Vocabulary: SNOMED CT S/P mitral valve repair (SNOMED CT :4864258445 ) Name of Problem: S/P mitral valve repair ; Recorder: Emmanuel Stevens MD; Confirmation: Confirmed; Classification: Medical ; Code: [id number] ; Contributor System: [employer] ; Last Updated: 08/02/2020 07:35 CDT ; Life Cycle Date: 08/02/2020 ; Life Cycle Status: Active ; Responsible Provider: Emmanuel Stevens MD; Vocabulary: SNOMED CT S/P prostatectomy (SNOMED CT :292942629 ) Name of Problem: S/P prostatectomy ; Recorder: Emmanuel Stevens MD; Confirmation: Confirmed ; Classification: Medical ; Code: 363420390 ; Contributor System: [employer] ; Last Updated: 08/02/2020 07:36 CDT ; Life Cycle Date: 08/02/2020 ; Life Cycle Status: Active ; Responsible Provider: Emmanuel Stevens MD; Vocabulary: SNOMED CT Trouble in sleeping (SNOMED CT :877147081 ) Name of Problem: Trouble in sleeping ; Recorder: Megha Tracey CHIEF LIBRARIAN EXTENSION DEPARTMENT/SENIOR MANAGER [employer]; Confirmation: Confirmed ; Classification: Medical ; Code: 966126150 ; Contributor System: [employer] ; Last Updated: 08/02/2020 08:23 CDT ; Life Cycle Date: 08/02/2020 ; Life Cycle Status: Active ; Responsible Provider: Megha Tracey CHIEF LIBRARIAN EXTENSION DEPARTMENT/SENIOR MANAGER [employer]; Vocabulary: SNOMED CT Diagnoses(Active) Vomiting Date: 11/23/2022 ; Diagnosis Type: Reason For Visit ; Confirmation: Confirmed ; Clinical Dx: Vomiting ; Classification: Medical ; Clinical Service: Emergency medicine ; Code: PNED ; Probability: 0 ; Diagnosis Code: [id number] Allergies (As Of: 11/23/2022 12:58 CDT) Allergies (Active) NKA Estimated Onset Date: Unspecified ; Created By: Darling Bennett RN; Reaction Status: Active ; Category: Drug ; Substance: NKA ; Type: Allergy ; Updated By: Darling Bennett RN; Reviewed Date: 11/23/2022 12:56 CDT Medication List (As Of: 11/23/2022 12:58 CDT) Prescription/Discharge Order allopurinol : allopurinol ; Status: Prescribed ; Ordered As Mnemonic: allopurinol 100 mg oral tablet ; Simple Display Line: 100 mg, 1 tablet(s), Oral, bid, 180 tablet(s), 3 Refill(s) ; Ordering Provider: Emmanuel Stevens MD; Catalog Code: allopurinol ; Order Dt/Tm: 05/06/2022 14:17 SOCIAL AND POLITICAL STUDIES PROFESSOR amLODIPine : amLODIPine ; Status: Prescribed ; Ordered As Mnemonic: amLODIPine 10 mg oral tablet ; Simple Display Line: 10 mg, 1 tablet(s), Oral, daily, 90 tablet(s), 3 Refill(s) ; Ordering Provider: Emmanuel Stevens MD; Catalog Code: amLODIPine ; Order Dt/Tm: 08/25/2022 07:09 CDT atorvastatin : atorvastatin ; Status: Prescribed ; Ordered As Mnemonic: atorvastatin 80 mg oral tablet ; Simple Display Line: 1 tablet(s), Oral, daily, 90 tablet(s), 2 Refill(s) ; Ordering Provider: Jose Martin Lomas M.D.; Catalog Code: atorvastatin ; Order Dt/Tm: 10/14/2022 08:15 CDT cloNIDine : cloNIDine ; Status: Prescribed ; Ordered As Mnemonic: cloNIDine 0.1 mg oral tablet ; Simple Display Line: 0.1 mg, 1 tablet(s), Oral, bid, for 90 day(s), 180 tablet(s), 3 Refill(s) ; Ordering Provider: Emmanuel Stevens MD; Catalog Code: cloNIDine ; Order Dt/Tm: 07/02/2022 11:03 SOCIAL AND POLITICAL STUDIES PROFESSOR ezetimibe : ezetimibe ; Status: Prescribed ; Ordered As Mnemonic: ezetimibe 10 mg oral tablet ; Simple Display Line: 1 tablet(s), Oral, daily, for 90 day(s), 90 tablet(s), 3 Refill(s) ; Ordering Provider: Jose Martin Lomas M.D.; Catalog Code: ezetimibe ; Order Dt/Tm: 10/14/2022 08:15 CDT levothyroxine : levothyroxine ; Status: Prescribed ; Ordered As Mnemonic: levothyroxine 50 mcg (0.05 mg) oral tablet ; Simple Display Line: 50 mcg, 1 tablet(s), Oral, daily before breakfast, 90 tablet(s), 3 Refill(s) ; Ordering Provider: Emmanuel Stevens MD; Catalog Code: levothyroxine ; Order Dt/Tm: 11/18/2022 13:10 CDT metoprolol : metoprolol ; Status: Prescribed ; Ordered As Mnemonic: Metoprolol Tartrate 50 mg oral tablet ; Simple Display Line: 1 tablet(s), Oral, bid, 180 tablet(s), 3 Refill(s) ; Ordering Provider: Jose Martin Lomas M.D.; Catalog Code: metoprolol ; Order Dt/Tm: 12/30/2021 15:40 CDT Home Meds aspirin : aspirin ; Status: Documented ; Ordered As Mnemonic: aspirin 81 mg oral enteric coated tablet ; Simple Display Line: 81 mg, 1 tablet(s), Oral, daily, 0 Refill(s) ; Catalog Code: aspirin ; Order Dt/Tm: 07/05/2020 12:18 SOCIAL AND POLITICAL STUDIES PROFESSOR leuprolide : leuprolide ; Status: Documented ; Ordered As Mnemonic: Lupron ; Simple Display Line: mg, 0 Refill(s) ; Catalog Code: leuprolide ; Order Dt/Tm: 12/05/2021 10:42 CDT polyethylene glycol 3350 : polyethylene glycol 3350 ; Status: Documented ; Ordered As Mnemonic: MiraLax oral powder for reconstitution ; Simple Display Line: 1 packet(s), Oral, daily, PRN: constipation, 0 Refill(s) ; Ordering Provider: Yuri Bailey M.D.; Catalog Code: polyethylene glycol 3350 ; Order Dt/Tm: 08/20/2020 11:20 CDT General Status : N/A Child/Parent Domestic Concerns : None Chemotherapy Med. Currently Taking : Yes Little interest/pleasure in doing things? : No Feeling down, depressed, or hopeless? : No Nilam Jhaveri RN - 11/23/2022 12:54 CDT Elopement Risk Assessment Is pt ambulatory or self-mobile in w/c? : Yes Is pt new admit questioning being here? : No Nilam Jhaveri RN - 11/23/2022 12:54 CDT Severe Sepsis Triage Screening Tool Does the Patient Have Any Three of the Following : None Is the Pt's SBP < 90 or MAP < 65 mmHg? : No ShakilaNilam RN - 11/23/2022 12:54 CDT Physician Emergency department Note * Asha Apple DO: MODIFY, PERFORM, MODIFY, SIGN, VERIFY Event Display: ED Note-Physician Authored Date: Patient: SHANON CHAPA Age: 76 years Sex: Male : 1945 Associated Diagnoses: None Author: Asha Apple DO Basic Information Vital signs: Vital Signs 11/23/2022 13:30 CDT SaO2 Pulse Rate 61 bpm 11/23/2022 13:15 CDT SaO2 Pulse Rate 63 bpm 11/23/2022 13:00 CDT SaO2 Pulse Rate 67 bpm 11/23/2022 12:50 CDT Temperature Temporal Artery 36.5 DegC Peripheral Pulse Rate 74 bpm Respiratory Rate 18 br/min Systolic Blood Pressure 130 mm Hg Diastolic Blood Pressure 89 mm Hg 11/23/2022 12:45 CDT SaO2 Pulse Rate 65 bpm , Primary Pain Intensity : Primary Pain Intensity 11/23/2022 12:50 CDT Primary Pain Intensity 0 , Measurements 11/23/2022 12:50 CDT Height 182 cm Weight 106 kg Weight Source Actual Body Mass Index 32 kg/m2 , Oxygen saturation: Basic Oxygen Information 11/23/2022 13:30 CDT Oxygen Saturation 98 % 11/23/2022 13:15 CDT Oxygen Saturation 98 % 11/23/2022 13:00 CDT Oxygen Saturation 98 % 11/23/2022 12:50 CDT Oxygen Saturation 97 % . Time seen: Date & time 11/23/2022 13:53:00. Additional information:: Chief Complaint from Nursing Triage Note : Chief Complaint Description 11/23/2022 12:50 CDT Chief Complaint Description increase lupron dose in may or jun. now c/o n/v x3 days . History of Present Illness The patient presents with 76-year-old male presents for a sore throat. It has been sore for about 10 days. He is having difficulty swallowing due to the pain. He denies any fevers, chills, cough, congestion. He feels like he is having a lot of acid reflux. He has a history of prostate cancer and bypass. He is taking Lupron shots, now every 3 months with an increased dose. His last shot was in September. He called his urologist who recommended he come to the emergency department. He went to urgent care a few days ago where they treated him for possible pharyngitis. They did notdo a strep or COVID test. They discharged him on omeprazole, Carafate, lidocaine mouthwash. He did not take these medications today. He denies diabetes. His daughter is at bedside is worried that he is dehydrated due to not eating or drinking due to the throat pain.. Health Status Allergies: Allergic Reactions (Selected) NKA. Past Medical/ Family/ Social History Medical history Problem List from Nurse's Notes All Problems Anemia of chronic disease / SNOMED CT 768690154 / Confirmed Ascending aorta dilation / SNOMED CT 585997662 / Confirmed CKD (chronic kidney disease), stage III / SNOMED CT 3043646642 / Confirmed CAD (coronary artery disease) / SNOMED CT 53754690 / Confirmed Gall stone / SNOMED CT 834524403 / Confirmed Gout / SNOMED CT 588624442 / Confirmed S/P prostatectomy / SNOMED CT 725820847 / Confirmed Large hiatal hernia / SNOMED CT 423692879 / Confirmed S/P CABG x 1 / SNOMED CT 4047586403 / Confirmed History of endocarditis / SNOMED CT 1828252702 / Confirmed S/P mitral valve repair / SNOMED CT 1813382408 / Confirmed Hypercalcemia / SNOMED CT 519742152 / Confirmed Hyperlipidemia / SNOMED CT 33409121 / Confirmed Hypertension / SNOMED CT 6904516840 / Confirmed Hypothyroidism / SNOMED CT 56714107 / Confirmed Trouble in sleeping / SNOMED CT 676835501 / Confirmed Prostate cancer / SNOMED CT 5470144588 / Confirmed Near syncope / SNOMED CT 7316532281 / Confirmed Medication monitoring encounter / SNOMED CT 842305137 / Confirmed Persistent atrial fibrillation / SNOMED CT 5018378122 / Confirmed Proteinuria / SNOMED CT 91763948 / Confirmed. Surgical history: Procedure History from Nurses Notes Biopsy of prostate ([id number]). cardiac stents. Comments: 07/05/2020 11:50 KEVIN - Yue Guo RN 2018 Cardiac catheterization (88083851). Prostatectomy (055032677).. Family history: Family History from Nurse's Notes Stroke Mother Family members Mother Father Heart disease Father Heart attack Father . Social history: Social History from Nurses Notes Alcohol Details: Current some day alcohol user Substance Abuse Details: Never drug user Tobacco Details: Never smoker, Smokeless Tobacco use: Former smokeless tobacco user, quit more than 30 daysago. N/A Cessation Counseling. . Physical Examination General: Alert. no acute distress. Skin: Warm. dry. Eye Ears, nose, mouth and throat: Dry mucosa. White plaque in oropharynx and posterior tongue. Cardiovascular: Regular rate and rhythm. No murmur. Respiratory: Lungs are clear to auscultation. respirations are non-labored. Chest wall Gastrointestinal: Soft. Nontender. Genitourinary Neurological: Alert and oriented to person, place, time, and situation Psychiatric: Cooperative. appropriate mood & affect. Medical Decision Making Rationale 76-year-old male presents with a sore throat for about 10 days. He also felt gastritis/GERD symptoms. His COVID and strep swabs were negative. Patient has possible thrush on exam with a history of prostate cancer currently on Lupron. Patient was given a dose of Decadron to help with swelling and pain control. Shortly after this patient vomited black. It was heme positive. He was then ordered a dose of Protonix IV bolus. He is not currently anticoagulated. His hemoglobin is stable. He probably has some esophagitis and gastritis with his hiatal hernia, in addition to possible thrush or ulcer. I discussed with the hospital service, as well as GI, who will consult. He is currently stable for admission.. Results review: Lab results : Lab View 11/23/2022 14:13 CDT ABO/Rh A POS Antibody Screen Negative 11/23/2022 14:05 CDT WBC 10.5 K/uL H Nucleated RBCs 0 % RBC 4.98 M/uL Hemoglobin 14.6 g/dL Hematocrit 41.6 % MCV 83.5 fL MCH 29.3 pg MCHC 35.1 g/dL RDW 14.2 % MPV 10.1 fL Platelet 235 K/uL Differential Type Automated Immature Gran % 0.4 % Neutro % 84 % Lymph % 7 % Martin % 7 % Eos % 0 % Baso % 0 % Neutro # 8.9 K/uL H Lymph # 0.8 K/uL Martin # 0.8 K/uL Eos # 0.0 K/uL Baso # 0.0 K/uL Sodium 133 mmol/L L Potassium 3.5 mmol/L Chloride 97 mmol/L L CO2 23 mmol/L Anion Gap 13 mmol/L BUN 39 mg/dL H Creatinine 1.84 mg/dL H Glucose 138 mg/dL H Calcium 10.3 mg/dL H Protein, Total 7.4 g/dL Albumin 4.2 g/dL Alk Phos 141 U/L H Bilirubin, Total 0.8 mg/dL AST 41 U/L ALT 25 U/L eGFR(CKD-EPI) 37 mL/min/1.73m2 L eCrCl(C-Gault) 0.5 mL/min/kg Magnesium 1.8 mg/dL SARS-CoV-2 (COVID-19) RNA Negative Strep A DNA Negative . Radiology results: Last 36 Hours Rad Impressions COMPLETED RADIOLOGY IMAGING STUDIES: CHEST SINGLE VIEW [Auth (Verified)] (11/23 141): FINAL IMPRESSION:Stable cardiac enlargement and postoperative changes. Large hiatalhernia. No acute pulmonary infiltrate or edema.. . Reexamination/ Reevaluation Re-examination/Re-evaluation: Time 11/23/2022 14:10:00, Notes Patient just vomited and it was black. It was heme positive. Patient states that he actually has been vomiting dark black vomitus for about the past month, though he has not vomited in at least a week.. Procedure Critical care services delivered? No Impression and Plan Diagnosis Acute pharyngitis : CMD27-IX J02.9, Discharge, Emergency medicine, Medical Acute upper GI bleed : AKR84-BC K92.2, Discharge, Emergency medicine, Medical Chronic kidney disease (CKD) : CZT70-OL N18.9, Discharge, Emergency medicine, Medical Calls-Consults - 11/23/2022 15:45:00 , Ted Mcintosh MD, He will consult.. Discharge plan Admit: Time 11/23/2022 15:50:00, To Observation Unit, Ken Helton M.D.. [Electronically Signed on 11/23/2022 04:26 PM CDT] Asha Apple, DO XR Chest Single view * Georges Carolina MD: VERIFY, VERIFY, PERFORM Event Display: Interpretation: Authored Date: [id number] EXAM: CHEST X-RAY - SINGLE VIEW HISTORY: dyspnea COMPARISON: 08/15/2020 FINDINGS: Changes of median sternotomy, cardiac valve replacement, and atrial appendage closure device placement noted. There is stable cardiac enlargement. There is a large hiatal hernia There is no acute consolidating infiltrate, effusion or pneumothorax. IMPRESSION: Stable cardiac enlargement and postoperative changes. Large hiatal hernia. No acute pulmonary infiltrate or edema. . Dictating Physician: Georges Carolina MD Releasing Physician: Georges Carolina MD Signature Electronically Authorized Authorized Date/Time: 23-NOV-2022 02:16 pm Patient Care team information Care Team Personnel Name: Jada Reynaga MD Position: Physician - Cardiology Member Role: Specialist Physician Address: Address: [address] [place] [address] [address] [place] [address] [place] Name: Nancy Suresh Specialist Position: Population Health Coordinator Member Role: Population Health Coordinator Name: Khoi Hendrickson Member Role: Urologist Name: Kenia Gregory M.D. Position: Physician - Endocrine Member Role: Locomotive Observer Address: Address: [address] [facility] [address] [place], [place] [id number] [place] Name: Vlad Varner MD Position: Physician - Electrophysiology Member Role: Specialist Physician Address: Address: [address] [facility] [address] [place] [address] [place] Name: Gab Marquez M.D. Position: Physician - Infectious Disease Member Role: Infectious Disease Address: Address: [address] [facility] [address] [place] [address] [place] Name: Yonas Clements MD Position: Physician - Electrophysiology Member Role: Specialist Physician Address: Address: [address] [facility] [address] [place] [address] [place] Name: Mark Sesay M.D. Position: Physician - Cardiothoracic Surgery Member Role: Specialist Physician Address: Address: [address] [facility] [address] [place], [place] [address]- Name: Fritz Oreilly MD Position: Physician - Infectious Disease Member Role: Specialist Physician Address: Address: [address] [place], [place] [id number] Name: Jose Martin Lomas M.D. Position: Physician - Cardiology Member Role: Specialist Physician Address: Address: [facility] [address] [place] [address] Name: Macy Ansari RN Position: AMB ONC Nurse Navigator Member Role: Nurse Navigator Name: Emmanuel Stevens MD Position: Physician - Internal Medicine Member Role: Primary Care Physician Address: Address: [address] [place] [address] [address] [place] [address] Name: Jennie Pendleton Hearth Feeder Position: OP Hearth Feeder Junior Automation Engineer Member Role: Hearth Feeder Care Team Related Persons Name: RAKEL BROWER Name: ALLAN VALDES Name: FREDA REYES
--- OUTSIDE RECORDS SUMMARY | 2024-04-20 01:05 | XMS_ITS | Continuity of Care Document ---
Author Organization [facility] Address [address] [place] [id number] Care Team Providers Care Principal Examiner Name Role Phone Emmanuel Broussard Primary Care Physician Kemi Daley Unavailable Vlad Varner Unavailable Jose Martin Lomas Unavailable Mark Sesay Unavailable [phone] Fritz Oreilly Unavailable Jada Reynaga Unavailable Yonas Clements Unavailable Encounter [facility] Financial Number [id number] Date(s): 07/01/22 - 07/01/[address] [id number] Discharge Disposition: Home or Self Care Attending Physician: Emmanuel Broussard MD Referring Physician: Emmanuel Broussard MD Allergies, Adverse Reactions, Alerts No Known Allergies Assessment and Plan Future Appointments Appointment Date:07/10/2022 10:30:00 AM Scheduled Provider:Kemi Daley MD Location:[facility] Appointment Type:EA EP Established Patient Appointment Date:07/30/2022 09:15:00 AM Scheduled Provider:Vlad Varner MD Location:[facility] Kelsi Spec Appointment Type:SLES EP Established Patient Appointment Date:09/01/2022 11:45:00 AM Scheduled Provider:Jose Martin Lomas M.D. Location:[facility] Care Appointment Type:CCC EP Established Patient Cesilia Appointment Date:12/31/2022 10:00:00 AM Scheduled Provider:Emmanuel Broussard MD Location:[facility] Appointment Type:CON CPE Complete Physical Exam Immunizations Given and Recorded Vaccine Date Status Refusal Reason influenza virus vaccine, live, trivalent 05/09/21 Recorded SARS-CoV-2 mRNA (5y-11y) vaccine 05/09/21 Recorded SARS-CoV-2 (COVID-19) mRNA BNT-162b2 vax 1 07/28/20 Recorded SARS-CoV-2 (COVID-19) mRNA BNT-162b2 vax 2 07/03/20 Recorded 1Result Comment: [place] 2Result Comment: [place] Medications allopurinol 100 mg oral tablet 100 mg, 1 tablet(s), Oral, bid, 180 tablet(s), 3, Route to Pharmacy Electronically, [facility][id number], [id number], 183, cm, 02/10/2022 1407, Height, 111.13, kg, 02/10/2022 1407, Weight Start Date: 05/06/22 Status: Ordered amLODIPine 10 mg oral tablet 10 mg, 1 tablet(s), Oral, daily, 90 tablet(s), Tablet(s), 3, 3, Route to Pharmacy Electronically, [facility] #[id number], [id number], 182.88, cm, 05/23/2021 0950, Height, 119, kg, 05/23/2021 0950, Weight Start Date: 05/23/21 Status: Ordered aspirin 81 mg oral enteric coated tablet 81 mg, 1 tablet(s), Oral, daily, Tab EC, 0 Start Date: 07/05/20 Status: Ordered atorvastatin 80 mg oral tablet 1 tablet(s), Oral, daily, 90 tablet(s), 2, Route to Pharmacy Electronically, [facility] #[id number], [id number], 182, cm, 01/14/2022 0958, Height, 116.3, kg, 01/14/2022 1002, Weight Start Date: 01/28/22 Status: Ordered ezetimibe 10 mg oral tablet 1 tablet(s), Oral, daily, 30 tablet(s), 7, Route to Pharmacy Electronically, [facility] #[id number], [id number], 182, cm, 01/14/2022 0958, Height, 116.3, kg, 01/14/2022 1002, Weight Start Date: 01/28/22 Status: Ordered levothyroxine 50 mcg (0.05 mg) oral tablet 50 mcg, 1 tablet(s), Oral, daily before breakfast, 90 tablet(s), Tablet(s), 3, 3, Route to PharmacyElectronically, [facility] #[id number], [id number], 182, cm, 12/05/2021 1020, Height, 114, kg, 12/05/2021 1022, Weight Start Date: 12/10/21 Status: Ordered Lupron mg, 0 Start Date: 12/05/21 Status: Ordered Metoprolol Tartrate 50 mg oral tablet 1 tablet(s), Oral, bid, 180 tablet(s), 3, Route to Pharmacy Electronically, [facility] #[id number], [id number], 182, cm, 12/05/2021 1020, Height, 114, kg, [...] Effective Dates Health Status Clinical Service Informant Hypertension 07/01/22 Non-Specified CKD (chronic kidney disease), stage III 07/01/22 Non-Specified Persistent atrial fibrillation 07/01/22 Non-Specified Ascending aorta dilation 07/01/22 Non-Specified Medication monitoring encounter 07/01/22 Non-Specified Procedures Procedure Date Related Diagnosis Body Site Status Biopsy of prostate Comple mary Cardiac catheterization C ompleted cardiac stents 1 Complete d Prostatectomy Completed 2018 Results Laboratory List Name Date Basic Metabolic Profile 07/01/22 Most recent to oldest [Reference Range]: 1 BUN [9-20 mg/dL] 24 mg/dL *H* (07/01/22 2:05 PM) Calcium [8.4-10.2 mg/dL] 10.4 mg/dL *H* (07/01/22 2:05 PM) Chloride [98-107 mmol/L] 107 mmol/L (07/01/22 2:05 PM) CO2 [22-30 mmol/L] 27 mmol/L (07/01/22 2:05 PM) Glucose [74-106 mg/dL] 119 mg/dL *H* (07/01/22 2:05 PM) Potassium [3.5-4.9 mmol/L] 4.3 mmol/L (07/01/22 2:05 PM) Sodium [137-145 mmol/L] 141 mmol/L (07/01/22 2:05 PM) Creatinine [0.7-1.3 mg/dL] 2.1 mg/dL *H* (07/01/22 2:05 PM) eGFR(4vMDRD) [>=60 mL/min/1.73m2] 31 mL/ min/1.73m2 *L* (07/01/22 2:05 PM) eCrCl(C-Gault) 0.4 mL/min/kg (07/01/22 2:05 PM) Anion Gap [7-16 mmol/L] 7 mmol/L (07/01/22 2:05 PM) Social History Social History Type Response [...] Safety Implantable Status Assigning Authority Unknown Unknown [id number] Unknown 03/04/23 Unknown Unknown Active Unkn own Procedure Provider Procedure Date Device Type Site Mitral Valve Annuloplasty Unknown 07/11/20 Unknown Unknown Device Identifier Serial Number Lot or Batch Number Manufacturing Date Expiration Date Distinct Identification Code MRI Safety Implantable Status Assigning Authority [id number] Unknown Unknown 03/13/24 Unknown MR Conditi onal [...] Date:05/28/20 End Date: Status:Met Progression:Met Note * Dee Medrano Cyber Special Agent: PERFORM Event Display: Authorization to Treat Authored Date: [id number] * Dee Medrano Cyber Special Agent: PERFORM Event Display: Authorization to Treat Authored Date: [id number] * Event Display: ROI_Correspondence * Event Display: ROI_Correspondence Authored Date: * Event Display: ROI_Correspondence * Event Display: ROI_Correspondence * Event Display: ROI_Correspondence Authored Date: * Event Display: ROI_Correspondence Authored Date: * Event Display: ROI_Correspondence Patient Care team information Care Team Personnel Name: Jada Reynaga MD Position: Physician - Cardiology Member Role: Specialist Physician Address: Address: [address] [place] [address] [address] [place] [address] [place] Name: Nancy Suresh Specialist Position: Population Health Coordinator Member Role: Population Health Coordinator Name: Khoi Hendrickson Member Role: Urologist Name: Vlad Varner MD Position: AMB Physician Member Role: Specialist Physician Address: Address: [address] [place] [address] [place] [address] [place] Name: Gab Marquez M.D. Position: Physician - Infectious Disease Member Role: Infectious Disease Address: Address: [address] [place] [address] [address] [place] [address] [place] Name: Mague Farfan LOW PRESSURE KETTLE OPERATOR Position: AMB LOW PRESSURE KETTLE OPERATOR/PA Member Role: Nurse Practitioner Address: Address: [address] [facility] [address] [place] [address] [place] Name: Yonas Clements MD Position: Physician - Electrophysiology Member Role: Specialist Physician Address: Address: [address] [place] [address] [address] [place] [address] [place] Name: Mark Sesay M.D. Position: Physician - Cardiothoracic Surgery Member Role: Specialist Physician Address: Address: [address] [facility] [address] [place] [address]- Name: Darling Santiago LOW PRESSURE KETTLE OPERATOR Position: AMB LOW PRESSURE KETTLE OPERATOR/PA Member Role: Nurse Practitioner Address: Address: [address] [facility] [place] [address] [place] Name: Kemi Daley MD Position: Physician - Endocrine Member Role: Specialist Physician Address: Address: [address] [facility] [address], [place] [id number] [place] Name: Lashay Newby LOW PRESSURE KETTLE OPERATOR Position: AMB LOW PRESSURE KETTLE OPERATOR/PA Member Role: Nurse Practitioner Address: Address: [address] [facility] [address] [place] [address] [place] Name: Fritz Oreilly MD Position: Physician - Infectious Disease Member Role: Specialist Physician Address: Address: [address] [place], [place] [id number] [place] Name: Gloria Soto Position: AMB LOW PRESSURE KETTLE OPERATOR/PA Member Role: Nurse Practitioner Address: Address: [address] [place] [address] [place] Name: Jose Martin Lomas M.D. Position: Physician - Cardiology Member Role: Specialist Physician Address: Address: [facility] [address] [place] [address] [place] Name: Macy Ansari RN Position: AMB ONC Nurse Navigator Member Role: Nurse Navigator Name: Emmanuel Broussard MD Position: AMB Physician Member Role: Primary Care Physician Address: Address: [address] Name: Jennie Pendleton Set Up And Lay Out Inspector Position: OP Set Up And Lay Out Inspector Certified Medical Technician Member Role: Set Up And Lay Out Inspector Care Team Related Persons Name: JL BROWER Name: ALLAN VALDES Name: FREDA REYES
--- OUTSIDE RECORDS SUMMARY | 2024-04-20 01:05 | XMS_ITS | Continuity of Care Document ---
Author Organization [facility] Address [address] [id number] Care Team Providers Care Environmental Services Technician Name Role Phone Emmanuel Broussard Primary Care Physician Kemi Daley Unavailable Vlad Varner Unavailable Jose Martin Lomas Unavailable Mark Sesay Unavailable Fritz Oreilly Unavailable Jada Reynaga Unavailable Yonas Clements Unavailable [phone] Encounter [facility] Financial Number [id number] Date(s): 02/10/22 - 02/10/[address] [id number] Discharge Disposition: Home or Self Care Attending Physician: Levi Cruz M.D. Referring Physician: Emmanuel Broussard MD Allergies, Adverse Reactions, Alerts No Known Allergies Assessment and Plan Future Appointments Appointment Date:03/06/2022 12:30:00 PM Scheduled Provider:Jose Martin Lomas M.D. Location:[facility] Appointment Type:CCC EP Established Patient Cesilia Appointment Date:04/22/2022 10:15:00 AM Scheduled Provider:Vlad Varner MD [facility] Appointment Type:SLES EP Established Patient Appointment Date:06/09/2022 01:30:00 PM Scheduled Provider:Emmanuel Broussard MD Location:[facility] Appointment Type:CON EP Established Patient Appointment Date:07/10/2022 10:30:00 AM Scheduled Provider:Kemi Daley MD Location:[address] Appointment Type:NAWAF EP Established Patient Appointment Date:09/01/2022 11:45:00 AM Scheduled Provider:Jose Martin Lomas M.D. Location:[facility] Patient Cesilia Immunizations Given and Recorded Vaccine Date Status Refusal Reason influenza virus vaccine, live, trivalent 05/09/21 Recorded SARS-CoV-2 mRNA (5y-11y) vaccine 05/09/21 Recorded SARS-CoV-2 (COVID-19) mRNA BNT-162b2 vax 1 07/28/20 Recorded SARS-CoV-2 (COVID-19) mRNA BNT-162b2 vax 2 07/03/20 Recorded 1Result Comment: [place] 2Result Comment: [place] Medications allopurinol 100 mg oral tablet 200 mg, 2 tablet(s), Oral, daily, 180 tablet(s), Tablet(s), 3, 3, Route to Pharmacy Electronically,[facility] #[id number], [id number], 182.88, cm, 05/23/2021 0950, Height, 119, kg, 05/23/2021 0950, Weight Start Date: 05/23/21 Stop Date: 05/18/22 Status: Ordered amLODIPine 10 mg oral tablet 10 mg, 1 tablet(s), Oral, daily, 90 tablet(s), Tablet(s), 3, 3, Route to Pharmacy Electronically, [facility] #[id number], [id number], 182.88, cm, 05/23/2021 0950, Height, 119, kg, 05/23/2021 0950, Weight Start Date: 05/23/21 Status: Ordered aspirin 81 mg oral enteric coated tablet 81 mg, 1 tablet(s), Oral, daily, Tab EC, 0 Start Date: 07/05/20 Status: Ordered atorvastatin 80 mg oral tablet 1 tablet(s), Oral, daily, 90 tablet(s), 2, Route to Pharmacy Electronically, [facility] #[id number], [id number], 182, cm, 01/14/2022 0958, Height, 116.3, kg, 01/14/2022 1002, Weight Start Date: 01/28/22 Status: Ordered ezetimibe 10 mg oral tablet 1 tablet(s), Oral, daily, 30 tablet(s), 7, Route to Pharmacy Electronically, [facility] #[id number], [id number], 182, cm, 01/14/2022 0958, Height, 116.3, kg, 01/14/2022 1002, Weight Start Date: 01/28/22 Status: Ordered levothyroxine 50 mcg (0.05 mg) oral tablet 50 mcg, 1 tablet(s), Oral, daily before breakfast, 90 tablet(s), Tablet(s), 3, 3, Route to PharmacyElectronically, [facility] #[id number], [id number], 182, cm, 12/05/2021 1020, Height, 114, kg, 12/05/2021 1022, Weight Start Date: 12/10/21 Status: Ordered Lupron mg, 0 Start Date: 12/05/21 Status: Ordered Metoprolol Tartrate 50 mg oral tablet 1 tablet(s), Oral, bid, 180 tablet(s), 3, Route to Pharmacy Electronically, [facility] #[id number], [id number], 182, cm, 12/05/2021 1020, Height, 114, kg, [...] Safety Implantable Status Assigning Authority Unknown Unknown [id number] Unknown 03/04/23 Unknown Unknown Active Unkn own Procedure Provider Procedure Date Device Type Site Mitral Valve Annuloplasty Unknown 07/11/20 Unknown Unknown Device Identifier Serial Number Lot or Batch Number Manufacturing Date Expiration Date Distinct Identification Code MRI Safety Implantable Status Assigning Authority [id number] Unknown Unknown 03/13/24 Unknown MR Candace stephenson [...] MD Position: Physician - Cardiology Med Service: [facility] Billing Member Role: Specialist Physician Address: Address: [address] [place] [address] [place] [address] [place] Name: Nancy Suresh Specialist Position: Population Health Coordinator Member Role: Population Health Coordinator Name: Khoi Hendrickson Member Role: Urologist Name: Vlad Varner MD Position: AMB Physician Member Role: Specialist Physician Address: Address: [address] [place] [address] [place] [address] [place] Name: Gab Marquez M.D. Position: Physician - Infectious Disease Med Service: Med Onc Prior Auth Member Role: Infectious Disease Address: Address: [address] [place] [address] [address] [place] [address] [place] Name: Mague Farfan ELECTRONIC SCALE SUBASSEMBLER Position: AMB ELECTRONIC SCALE SUBASSEMBLER/PA Member Role: Nurse Practitioner Address: Address: [address] [place] [address] [address] [place] [address] [place] Name: Yonas Clements MD Position: Physician - Electrophysiology Med Service: [facility] Member Role: Specialist Physician Address: Address: [address] [place] [address] [place] [address] [place] Name: Mark Sesay M.D. Position: AMB Physician Med Service: [facility] Billing Member Role: Specialist Physician Address: Address: [address] [place] [address] [address] [place], [place] [address]- Name: Mark Sesay M.D. Position: AMB Physician Med Service: Split Billing Member Role: Specialist Physician Address: Address: [address] [facility] [place], [place] [address]- Name: Darling Santiago ELECTRONIC SCALE SUBASSEMBLER Position: AMB ELECTRONIC SCALE SUBASSEMBLER/PA Med Service: Vascular Technical Editor Role: Nurse Practitioner Address: Address: [address] [facility] [place] [address] [place] Name: Kemi Daley MD Position: AMB Physician Med Service: Med Onc Prior Auth Member Role: Specialist Physician Address: Address: [address] [facility] [address], [place] [id number] [place] Name: Lashay Newby ELECTRONIC SCALE SUBASSEMBLER Position: AMB ELECTRONIC SCALE SUBASSEMBLER/PA Med Service: Split Billing Member Role: Nurse Practitioner Address: Address: [address] [address] [facility] [address] [place] [address] [place] Name: Fritz Oreilly MD Position: AMB Physician Member Role: Specialist Physician Address: Address: [address] [facility] [facility] [address] [place], [place] [id number] [place] Name: Gloria SotoP Position: AMB ELECTRONIC SCALE SUBASSEMBLER/PA Med Service: Vascular Technical Editor Role: Nurse Practitioner Address: Address: [address] [place] [address] [place] Name: Jose Martin Lomas M.D. Position: Physician - Cardiology Med Service: Split Billing Member Role: Specialist Physician Address: Address: [facility] [address] [place] [address] [place] Name: Jose Martin Lomas M.D. Position: Physician - Cardiology Med Service: Split Billing Member Role: Specialist Physician Address: Address: [facility] [address] [facility] [address] [place] [address] [place] Name: Macy Ansari RN Position: AMB ONC Nurse Navigator Member Role: Nurse Navigator Name: Emmanuel Broussard MD Position: AMB Physician Member Role: Primary Care Physician Address: Address: [address] [place] [address] [place] Name: Kyle Parkinson ELECTRONIC SCALE SUBASSEMBLER Position: AMB ELECTRONIC SCALE SUBASSEMBLER/PA Med Service: Vascular Technical Editor Role: Nurse Practitioner Address: Address: [address] Name: Jennie Pendleton Triage Register Nurse Position: OP Triage Register Nurse Sales Vice President Member Role: Triage Register Nurse Name: Levi Cruz M.D. Position: Physician - Radiation Oncology Med Service: Hematology/Oncology Member Role: Attending Physician Address: Address: [address] Name: Emmanuel Broussard MD Position: AMB Physician Member Role: Referring Physician Address: Address: [address] Care Team Related Persons Name: JL BROWER Name: ALLAN VALDES Name: FREDA REYES
--- OUTSIDE RECORDS SUMMARY | 2024-04-20 01:05 | XMS_ITS | Continuity of Care Document ---
Author Organization [facility] Address [address] [facility] [address] [address] [place], [place] [id number] Care Team Providers Care Is Consultant Name Role Phone Emmanuel Broussard Primary Care Physician [phone] Kemi Daley Unavailable Vlad Varner Unavailable Jose Martin Lomas Unavailable Mark Sesay Unavailable Fritz Oreilly Unavailable [phone] Jada Reynaga Unavailable Yonas Clements Unavailable Encounter [facility] Financial Number [id number] Date(s): 09/01/22 - 09/01/22 [facility] [address] [id number] Discharge Disposition: Home or Self Care Attending Physician: Jose Martin Lomas M.D. Allergies, Adverse Reactions, Alerts No Known Allergies Assessment and Plan Future Appointments Appointment Date:12/31/2022 10:00:00 AM Scheduled Provider:Emmanuel Broussard MD Location:[facility] Appointment Type:SANDEEP CPE Complete Physical Exam Appointment Date:06/22/2023 11:30:00 AM Scheduled Provider:Jose Martin Lomas M.D. Location:[facility] Appointment Type:[facility] EP Established Patient Cesilia Appointment Date:09/07/2023 10:00:00 AM Scheduled Provider:Kemi Daley MD Location:[facility] Appointment Type:[facility] EP Established Patient Immunizations Given and Recorded Vaccine Date Status Refusal Reason influenza virus vaccine, live, trivalent 05/09/21 Recorded SARS-CoV-2 mRNA (5y-11y) vaccine 05/09/21 Recorded SARS-CoV-2 (COVID-19) mRNA BNT-162b2 vax 1 07/28/20 Recorded SARS-CoV-2 (COVID-19) mRNA BNT-162b2 vax 2 07/03/20 Recorded 1Result Comment: [place] 2Result Comment: [place] Medications allopurinol 100 mg oral tablet 100 mg, 1 tablet(s), Oral, bid, 180 tablet(s), 3, Route to Pharmacy Electronically, [facility] #[id number], [id number], 183, cm, 02/10/2022 1407, Height, 111.13, kg, 02/10/2022 1407, Weight Start Date: 05/06/22 Status: Ordered amLODIPine 10 mg oral tablet 10 mg, 1 tablet(s), Oral, daily, 90 tablet(s), Tablet(s), 3, 3, Route to Pharmacy Electronically, [facility] #[id number], [id number], 183, cm, 07/01/2022 1255, Height, 117, kg, 07/01/2022 1255, Weight Start Date: 08/25/22 Status: Ordered aspirin 81 mg oral enteric coated tablet 81 mg, 1 tablet(s), Oral, daily, Tab EC, 0 Start Date: 07/05/20 Status: Ordered atorvastatin 80 mg oral tablet 1 tablet(s), Oral, daily, 90 tablet(s), 2, Route to Pharmacy Electronically, [facility] #[id number], [id number], 182, cm, 01/14/2022 0958, Height, 116.3, kg, 01/14/2022 1002, Weight Start Date: 01/28/22 Status: Ordered cloNIDine 0.1 mg oral tablet 0.1 mg, 1 tablet(s), Oral, bid, 180 tablet(s), Tablet(s), 3, 3, Route to Pharmacy Electronically, [facility] #[id number], [id number], 183, cm, 07/01/2022 1255, Height, 117, kg, 07/01/2022 1255, Weight Start Date: 07/02/22 Stop Date: 06/27/23 Status: Ordered ezetimibe 10 mg oral tablet 1 tablet(s), Oral, daily, 30 tablet(s), 7, Route to Pharmacy Electronically, [facility] #[id number], [id number], 182, cm, 01/14/2022 0958, Height, 116.3, kg, 01/14/2022 1002, Weight Start Date: 01/28/22 Status: Ordered levothyroxine 50 mcg (0.05 mg) oral tablet 50 mcg, 1 tablet(s), Oral, daily before breakfast, 90 tablet(s), Tablet(s), 3, 3, Route to PharmacyElectronically, [facility] #[id number], [id number], 182, cm, 12/05/2021 1020, Height, 114, kg, 12/05/2021 1022, Weight Start Date: 12/10/21 Status: Ordered Lupron mg, 0 Start Date: 12/05/21 Status: Ordered Metoprolol Tartrate 50 mg oral tablet 1 tablet(s), Oral, bid, 180 tablet(s), 3, Route to Pharmacy Electronically, [facility] #[id number], [id number], 182, cm, 12/05/2021 1020, Height, 114, kg, [...] Range]: 1 Peripheral Pulse Rate [60-100 bpm] 57 bp m *L* (09/01/22 11:42 AM) Blood Pressure [89-139/60-90 mm Hg] 126/ 70mm Hg (09/01/22 11:42 AM) Height 183 cm (09/01/22 11:42 AM) Weight 119 kg (09/01/22 11:42 AM) Social History Social History Type Response [...] Safety Implantable Status Assigning Authority Unknown Unknown [id number] Unknown 03/04/23 Unknown Unknown Active Unkn own Procedure Provider Procedure Date Device Type Site Mitral Valve Annuloplasty Unknown 07/11/20 Unknown Unknown Device Identifier Serial Number Lot or Batch Number Manufacturing Date Expiration Date Distinct Identification Code MRI Safety Implantable Status Assigning Authority [id number] Unknown Unknown 03/13/24 Unknown MR Candace stephenson [...] ROI_Correspondence * Event Display: ROI_Correspondence Authored Date: [id number] * Event Display: ROI_Correspondence * Event Display: ROI_Correspondence * Event Display: ROI_Correspondence Authored Date: * Event Display: ROI_Correspondence Authored Date: * Event Display: ROI_Correspondence Patient Care team information Care Team Personnel Name: Jada Reynaga MD Position: Physician - Cardiology Member Role: Specialist Physician Address: Address: [address] [place] [address] [place] [address] [place] Name: Nancy Suresh Specialist Position: Population Health Coordinator Member Role: Population Health Coordinator Name: Khoi Hendrickson Member Role: Urologist Name: Vlad Varner MD Position: Physician - Electrophysiology Member Role: Specialist Physician Address: Address: [address] [place] [address] [place] [address] [place] Name: Gab Marquez M.D. Position: Physician - Infectious Disease Member Role: Infectious Disease Address: Address: [address] [place] [address] [address] [place] [address] [place] Name: Yonas Clements MD Position: Physician - Electrophysiology Member Role: Specialist Physician Address: Address: [address] [place] [address] [place] [address] [place] Name: Mark Sesay M.D. Position: Physician - Cardiothoracic Surgery Member Role: Specialist Physician Address: Address: [address] [place] [address] [address] [place] [address]- Name: Darling Santiago CLAY HOISTER Position: AMB CLAY HOISTER/PA Member Role: Nurse Practitioner Address: Address: [address] [place] [address] [place] Name: Kemi Daley MD Position: Physician - Endocrine Member Role: Specialist Physician Address: Address: [address] [facility] [address] [place], [place] [id number] [place] Name: Fritz Oreilly MD Position: Physician - Infectious Disease Member Role: Specialist Physician Address: Address: [address] [place], [place] [id number] [place] Name: Gloria Soto ELEMENT WINDING MACHINE TENDER Position: AMB CLAY HOISTER/PA Member Role: Nurse Practitioner Address: Address: [address] Name: Jose Martin Lomas M.D. Position: Physician - Cardiology Member Role: Specialist Physician Address: Address: [facility] [address] [place] [address] [place] Name: Macy Ansari RN Position: AMB ONC Nurse Navigator Member Role: Nurse Navigator Name: Emmanuel Broussard MD Position: Physician - Internal Medicine Member Role: Primary Care Physician Address: Address: [address] [place] [id number] [place] Name: Jennie Pendleton Weigher And Crusher Position: OP Weigher And Crusher Twister Frame Tender Member Role: Weigher And Crusher Name: Jose Martin Lomas M.D. Position: Physician - Cardiology Med Service: Mobile Home Set Up Person Is Consultant Role: Attending Physician Address: Address: [facility] [address] [place] [address] [place] Care Team Related Persons Name: JL BROWER Name: ALLAN VALDES Name: FREDA REYES
--- OUTSIDE RECORDS SUMMARY | 2024-04-20 01:05 | XMS_ITS | Continuity of Care Document ---
Author Organization [facility] [address] [place] [phone] Care Team Providers Care Massage Therapy Instructor Name Role Phone Courtney Prado Primary Care Physician Encounter [facility] Financial Number [id number] Date(s): 03/24/24 - 03/24/24 [facility] [address] [phone] Encounter Diagnosis Benign hypertension with CKD (chronic kidney disease) stage III(Discharge Diagnosis) - 03/24/24 S/P mitral valve repair(Discharge Diagnosis) - 03/24/24 Ascending aorta dilation(Discharge Diagnosis) - 03/24/24 PAF (paroxysmal atrial fibrillation)(Discharge Diagnosis) - 03/24/24 History of prostate cancer(Discharge Diagnosis) - 03/24/24 Hx of gout(Discharge Diagnosis) - 03/24/24 Anemia of chronic disease(Discharge Diagnosis) - 03/24/24 Annual physical exam(Discharge Diagnosis) - 03/24/24 CKD (chronic kidney disease), stage III(Discharge Diagnosis) - 03/24/24 CAD (coronary artery disease)(Discharge Diagnosis) - 03/24/24 Hyperlipidemia(Discharge Diagnosis) - 03/24/24 S/P CABG x 1(Discharge Diagnosis) - 03/24/24 Hypothyroidism(Discharge Diagnosis) - 03/24/24 GERD with esophagitis(Discharge Diagnosis) - 03/24/24 S/P prostatectomy(Discharge Diagnosis) - 03/24/24 History of radiation therapy(Discharge Diagnosis) - 03/24/24 Dizziness(Discharge Diagnosis) - 03/24/24 Discharge Disposition: Home or Self Care Attending Physician: Courtney Prado MD Allergies, Adverse Reactions, Alerts No Known Allergies Assessment and Plan Future Appointments Appointment Date:03/28/2024 02:00:00 PM Scheduled Provider:Shereen Owens NP Location:[facility] Appointment Type:[facility] EP Established Patient Graciela Appointment Date:03/28/2024 03:00:00 PM Scheduled Provider: Location:[facility] Cardiology Appointment Type:Echocardiogram Complete Study Appointment Date:06/01/2024 11:00:00 AM Scheduled Provider:Jeromy Perez MD Location:[facility] Appointment Type:[facility] Established Patient 20mins Appointment Date:09/12/2024 10:30:00 AM Scheduled Provider:Kemi Daley MD Location:[facility] Appointment Type:EA EP Established Patient Appointment Date:10/10/2024 10:30:00 AM Scheduled Provider: Location:[facility] Cardiology Appointment Type:Echocardiogram Complete Study Appointment Date:10/10/2024 11:30:00 AM Scheduled Provider:Jose Martin Lomas M.D. Location:[facility] Appointment Type:[facility] EP Established Patient Maribelder Appointment Date:10/10/2024 01:30:00 PM Scheduled Provider:Courtney Prado MD Location:[facility] Appointment Type:[facility] EP Established Patient Immunizations [...] Santiago Medications allopurinol 100 mg oral tablet 1 tablet(s), Oral, bid, 180 tablet(s), 0, [facility] to [facility]acy [facility]ically, [id number], [id number], 182, cm, 02/25/24 13:51:00 CDT, Height, 105, kg, 02/25/24 13:51:00 CDT, Weight Start Date: 02/29/24 Status: Ordered amLODIPine 10 mg oral tablet 1 tablet(s), Oral, daily, 90 tablet(s), 0, Route to Pharmacy Electronically, [facility] #[id number], [id number], 182, cm, 02/25/24 13:51:00 CDT, Height, 105, kg, 02/25/24 13:51:00 CDT, Weight Start Date: 02/29/24 Status: Ordered aspirin 81 mg oral enteric coated tablet 81 mg, 1 tablet(s), Oral, daily, Tab EC, 0 Start Date: 07/05/20 Status: Ordered atorvastatin 80 mg oral tablet 1 tablet(s), Oral, daily, 90 tablet(s), 3, Route to Pharmacy Electronically, [facility] #[id number], [id number], 183, cm, 02/16/23 13:04:00 CDT, Height, 110.5, kg, 02/16/23 13:04:00 CDT, Weight Start Date: 07/13/23 Status: Ordered cloNIDine 0.1 mg oral tablet 1 tablet(s), Oral, bid, 180 tablet(s), 2, 2, Route to Pharmacy Electronically, [facility][id number], [id number], 183, cm, 02/16/23 13:04:00 CDT, Height, 110.5, kg, 02/16/23 13:04:00 CDT, Weight Start Date: 08/06/23 Stop Date: 05/02/24 Status: Ordered Entresto 24 mg-26 mg oral tablet 0.5 tablet(s), Oral, bid, 30 tablet(s), Tablet(s), 11, 11, Route to Pharmacy Electronically, [facility] #[id number], [id number], 182, cm, 02/25/24 13:51:00 CDT, Height, 105, kg, 02/25/24 13:51:00 CDT, Weight Start Date: 02/25/24 Status: Ordered ezetimibe 10 mg oral tablet 1 tablet(s), Oral, daily, 90 tablet(s), 3, Route to Pharmacy Electronically, [facility] #[id number], [id number], 182, cm, 10/28/23 9:42:00 CDT, Height, 105.2, kg, 10/28/23 9:42:00 CDT, Weight Start Date: 01/07/24 Status: Ordered Gemtesa 75 mg oral tablet 75 mg, 1 tablet(s), Oral, daily, 30 tablet(s), 3, 3, Route to Pharmacy Electronically, [facility] #[id number], [id number], 182, cm, 10/28/23 9:42:00 CDT, Height, 105.2,kg, 10/28/23 9:42:00 CDT, Weight Start Date: 01/14/24 Stop Date: 05/13/24 Status: Ordered levothyroxine 50 mcg (0.05 mg) oral tablet 1 tablet(s), Oral, daily before breakfast, 90 tablet(s), 0, Route to Pharmacy Electronically, [facility] #[id number], [id number], 182, cm, 02/25/24 13:51:00 CDT, Height, 105, kg, 02/25/24 13:51:00 CDT, Weight Start Date: 03/18/24 Status: Ordered Metoprolol Tartrate 50 mg oral tablet 1 tablet(s), Oral, bid, 180 tablet(s), 3, Route to Pharmacy Electronically, [facility] #[id number], [id number], 182, cm, 10/28/23 9:42:00 CDT, Height, 105.2, kg, 10/28/23 9:42:00 CDT, Weight Start Date: 11/09/23 Status: Ordered minoxidil 2.5 mg oral tablet 1 tablet(s), Oral, bid, 180 tablet(s), 0, Route to Pharmacy Electronically, [facility][id number], [id number], 182, cm, 02/25/24 13:51:00 CDT, Height, 105, kg, 02/25/24 13:51:00 CDT, Weight Start Date: 02/25/24 Status: Ordered pantoprazole 40 mg oral delayed release tablet 40 mg, 1 tablet(s), Oral, bid before meals, 180 tablet(s), Tab EC, 0, 0, Route to Pharmacy Electronically, [facility] #[id number], [id number], 182, cm, 11/24/2022 1326, Height, 106, kg, [...] Susp, 0, 0, Route to Pharmacy Electronically, [facility][id number], [id number], 182, cm, 11/24/2022 1326, Height, 106, kg, [...] Temporal Artery [35.8-38 Deg C] 36.6 DegC (03/24/24 2:35 PM) Peripheral Pulse Rate [60-100 bpm] 84 bp m (03/24/24 2:35 PM) Blood Pressure [89-139/60-90 mm Hg] 164/ 80mm Hg *H* (03/24/24 2:35 PM) Height 182 cm (03/24/24 2:35 PM) Weight 109.7 kg (03/24/24 2:35 PM) Social History Social History Type Response [...] Safety Implantable Status Assigning Authority Unknown Unknown [id number] Unknown 03/04/23 Unknown Unknown Active Unkn own Procedure Provider Procedure Date Device Type Site Mitral Valve Annuloplasty Unknown 07/11/20 Unknown Unknown Device Identifier Serial Number Lot or Batch Number Manufacturing Date Expiration Date Distinct Identification Code MRI Safety Implantable Status Assigning Authority [id number] Unknown Unknown 03/13/24 Unknown MR Maria onal [...] Date: Status:Met Progression:Met Note * Vini Núñez ZhaogangDeputy Sheriff Bailiff: PERFORM Event Display: ROI_Correspondence Authored Date: [id number] * Event Display: ROI_Correspondence * Event Display: ROI_Correspondence Authored Date: [id number] Internal medicine Outpatient Note * Courtney Prado MD: PERFORM Event Display: Internal Medicine Office/Clinic Note Authored Date: [id number] Patient Information Name:SHANON CHAPA Address: [address] [place] [phone] Sex:Male Date of :1945 Emergency Contact:FREDA REYES Location:[facility] [address] Registration Date and Time:03/24/2024 14:26 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 Chapa??is here??for his??annual checkup visit.?? He was recently seen??by our nurse practitioner Colton??in the office??for high blood pressure??and he was also reporting some dizziness??symptoms.?? No headaches or visual changes.?? Low-dose of minoxidil 2.5 mg twice a day was added??to his??prior medical??regimen for blood pressure control and??he was already??on??amlodipine 10 mg a day,??clonidine 0.1 mg twice a day,??Entresto ??half a tablet twice a day.?? He??reported that his dizziness??symptom was??worse.?? He saw his kidney doctor recently??and apparently??he was told??by Dr. Cuevas??to consider??discontinuing??either clonidine??or one of the other blood pressure medication??like??Entresto??which she was using as sample that was given by his cardiology office.?? Dr. Cuevas also??added??low-dose potassium supplement because of his prior history of??hypokalemia. ??He has CKD stage III??and his recent creatinine was 2.02.?? Calcium was 3.7. He??has hypothyroidism and takes levothyroxine for it. ?He had a history of prostate cancer??and had??prostate surgery??in [place].?? He was also treated with radiation. ??He is followed by Dr. Perez,??urologist and by Dr Cruz. Review of Systems GENERAL: No significant wt loss or wt gain, no fever or chills HEENT: No hearing problems or pain in ears, nose ??or throat RESPIRATORY: No cough, SOB or Wheezing, no pleuritic chest pain CVS: No chest pain, slight??exertional dyspnea,??no palpitation??or syncope??but reports having dizziness GI: No abdominal pain, nausea, vomiting, diarrhea [...] swings Vitals and Measurements Vital Signs Height: 182 cm Height Inches Conversion: 71.7 Weight: 109.7 kg Weight in Pounds (kg conversion): 241.3 Body Surface Area: 2.355 m2 Body Mass Index: 33.12 kg/m2 Temperature Temporal Artery: 36.6 DegC Systolic Blood Pressure:??164 mm Hg??High Diastolic Blood Pressure: 80 mm Hg Peripheral Pulse Rate: 84 bpm Oxygen Saturation: 98 % HRA Pain Present: No Physical Exam General Examination GENERAL APPEARANCE: Overall appearance is appropriate for patient???s age, obese elderly gentleman,??well developed and well nourished, in no acute distress.?? EYES: extra ocular muscles intact (EOMI) bilaterally, pupils, equal, round, reactive to light and accommodation (PERRLA), sclera clear.?? HEENT: Head - normocephalic/atraumatic, EARS: ??NOSE: Exam deferred ORAL CAVITY: Exam deferred NECK/THYROID: [...] affect, no suicidal or homicidal ideations or thoughts, ??good eye contact. Assessment/Plan 1.??Benign hypertension with CKD (chronic kidney disease) stage III Blood pressure systolic??was initially??elevated??at 164??but a repeat check??showed that his pressure was 142/76.?? He is having??more dizziness symptoms since??he was put on Entresto.?? Although??he got started on??low-dose minoxidil??that dose of minoxidil??was unlikely to cause??dizziness.?? Aris vazquez's negative stress test and his??stress ejection fraction was normal.?? He could come off of Entresto??and his minoxidil??dose could be increased to 5 mg twice a day??because his blood pressure needs to stay under control.?? Another option is??to??wean him off of clonidine.?? He has appointment to see??cardiology nurse practitioner in near future. Ordered: CBC with Differential, 03/24/24, Blood, ROUTINE, Routine, Order for Future Visit, Print Label, Annual physical exam Anemia of chronic disease CKD (chronic kidney disease), stage III Benign hypertension with CKD (chronic kidney disease) stage III, Hold Until Collected Comprehensive Metabolic Profile, 03/24/24, Blood, ROUTINE, Routine, Order for Future Visit, Print Label, Annual physical exam Benign hypertension with CKD (chronic kidney disease) stage III CKD (chronic kidney disease), stage III, Not Required, Hold Until Collected Lipid Panel, 03/24/24, Blood, ROUTINE, Routine, Order for Future Visit, Print Label, Annual physical exam Hyperlipidemia CAD (coronary artery disease) Benign hypertension with CKD (chronic kidney disease) stage III, Not Required, Hold Until Collected, Yes ?? 2.??Dizziness As mentioned above??would recommend??discontinuing??Entresto??and increasing??minoxidil??dose to 5 mg twice a day.?? Continue amlodipine, beta- devante??and clonidine??for now??and watch for symptoms. ?? 3.??CKD (chronic kidney disease), stage [address] Cuevas.?? He added??low-dose potassium chloride recently.?? Last creatinine level was 2.02??and EGFR was 33.?? Avoid nephrotoxic agents and drugs. Ordered: CBC with Differential, 03/24/24, Blood, ROUTINE, Routine, Order for Future Visit, Print Label, Annual physical exam Anemia of chronic disease CKD (chronic kidney disease), stage III Benign hypertension with CKD (chronic kidney disease) stage III, Hold Until Collected Comprehensive Metabolic Profile, 03/24/24, Blood, ROUTINE, Routine, Order for Future Visit, Print Label, Annual physical exam Benign hypertension with CKD (chronic kidney disease) stage III CKD (chronic kidney disease), stage III, Not Required, Hold Until Collected ?? 4.??Hyperlipidemia Follow low-fat low-cholesterol heart healthy diet. ??Continue??ezetimibe??and atorvastatin treatment. Ordered: Lipid Panel, 03/24/24, Blood, ROUTINE, Routine, Order for Future Visit, Print Label, Annual physical exam Hyperlipidemia CAD (coronary artery disease) Benign hypertension with CKD (chronic kidney disease) stage III, Not Required, Hold Until Collected, Yes ?? 5.??CAD (coronary artery disease) Denies chest pain??or angina symptoms. ??Followed by access representative.?? Recent??stress test was negative. Ordered: Lipid Panel, 03/24/24, Blood, ROUTINE, Routine, Order for Future Visit, Print Label, Annual physical exam Hyperlipidemia CAD (coronary artery disease) Benign hypertension with CKD (chronic kidney disease) stage III, Not Required, Hold Until Collected, Yes ?? 6.??S/P CABG x 1 Not having any acute issues. ??Recent??stress test was negative. ?? 7.??S/P mitral valve repair Monitored??and followed by access representative. ?? 8.??Ascending aorta dilation Monitored and followed by cardiology. ?? 9.??PAF (paroxysmal atrial fibrillation) Followed by access representative. ??Continue aspirin and beta-devante treatment. Ordered: TSH with Reflex, 03/24/24, Blood, ROUTINE, Routine, Order for Future Visit, Print Label, Annual physical exam Hypothyroidism PAF (paroxysmal atrial fibrillation), Not Required, Hold Until Collected ?? 10.??Hypothyroidism Continue??with levothyroxine treatment. ??Checking TSH. Ordered: TSH with Reflex, 03/24/24, Blood, ROUTINE, Routine, Order for Future Visit, Print Label, Annual physical exam Hypothyroidism PAF (paroxysmal atrial fibrillation), Not Required, Hold Until Collected ?? 11.??GERD with esophagitis Follow reflux precautions and continue to use pantoprazole??as needed. ?? 12.??History of prostate cancer Had prostatectomy surgery??and also had radiation treatment. ??Followed by urologist Dr. Perez. ?? 13.??S/P prostatectomy Follow-up with urologist. ?? 14.??History of radiation therapy Follow-up with radiation oncologist. ?? 15.??Hx of gout Follow low purine diet and avoid red meat. ??Continue allopurinol treatment. ?? 16.??Anemia of chronic disease Monitor??CBC.?? Followed by auto fleet manager. Ordered: CBC with Differential, 03/24/24, Blood, ROUTINE, Routine, Order for Future Visit, Print Label, Annual physical exam Anemia of chronic disease CKD (chronic kidney disease), stage III Benign hypertension with CKD (chronic kidney disease) stage III, Hold Until Collected ?? 17.??Annual physical exam History is reviewed and updated. ??This includes medications, allergies, medical history, surgical history, family history??and social history.?? Time is spent reviewing??and discussing??diet and exercise habits. ??Skin protection and screening is reviewed.? Vaccinations are reviewed.?? Appropriate labs??are ordered Ordered: CBC with Differential, 03/24/24, Blood, ROUTINE, Routine, Order for Future Visit, Print Label, Annual physical exam Anemia of chronic disease CKD (chronic kidney disease), stage III Benign hypertension with CKD (chronic kidney disease) stage III, Hold Until Collected Comprehensive Metabolic Profile, 03/24/24, Blood, ROUTINE, Routine, Order for Future Visit, Print Label, Annual physical exam Benign hypertension with CKD (chronic kidney disease) stage III CKD (chronic kidney disease), stage III, Not Required, Hold Until Collected Lipid Panel, 03/24/24, Blood, ROUTINE, Routine, Order for Future Visit, Print Label, Annual physical exam Hyperlipidemia CAD (coronary artery disease) Benign hypertension with CKD (chronic kidney disease) stage III, Not Required, Hold Until Collected, Yes TSH with Reflex, 03/24/24, Blood, ROUTINE, Routine, Order for Future Visit, Print Label, Annual physical exam Hypothyroidism PAF (paroxysmal atrial fibrillation), Not Required, Hold Until Collected ?? Orders: RSV vaccine preF3, recombinant(Arexvy preservative-free intramuscular injection), 60 mcg= 0.5 mL, IntraMuscular, Once Future Order Details CBC with Differential, 03/24/24, Blood, ROUTINE, Routine, Order for Future Visit, Print Label, Annual physical exam Anemia of chronic disease CKD (chronic kidney disease), stage III Benign hypertension with CKD (chronic kidney disease) stage III, Hold Until Collected Comprehensive Metabolic Profile, 03/24/24, Blood, ROUTINE, Routine, Order for Future Visit, Print Label, Annual physical exam Benign hypertension with CKD (chronic kidney disease) stage III CKD (chronic kidney disease), stage III, Not Required, Hold Until Collected Lipid Panel, 03/24/24, Blood, ROUTINE, Routine, Order for Future Visit, Print Label, Annual physical exam Hyperlipidemia CAD (coronary artery disease) Benign hypertension with CKD (chronic kidney disease) stage III, Not Required, Hold Until Collected, Yes TSH with Reflex, 03/24/24, Blood, ROUTINE, Routine, Order for Future Visit, Print Label, Annual physical exam Hypothyroidism PAF (paroxysmal atrial fibrillation), Not Required, Hold Until Collected Patient Instructions Follow-up in 6 months Problem List/Past Medical History Ongoing Anemia of chronic disease Ascending aorta dilation CAD (coronary artery disease) CKD (chronic kidney disease), stage III Edema of right lower extremity Gall stone GERD with esophagitis Gout History of endocarditis History of prostate cancer History of radiation therapy Hx of gout Hypercalcemia Hyperlipidemia Hypertension Hypothyroidism Large hiatal hernia Medication monitoring encounter Needs flu shot PAF (paroxysmal atrial fibrillation) Post herpetic neuralgia Proteinuria S/P CABG x 1 S/P mitral valve repair S/P prostatectomy Trouble in sleeping Historical Prostate cancer Procedure/Surgical History ???Repair of diaphragmatic hiatal hernia (11/23/2022)???UPPER GI ENDOSCOPY PERFORMED (2022)???Biopsy of prostate???Cardiac catheterization???cardiac stents???Prostatectomy Medications Unchanged allopurinol (allopurinol 100 mg oral tablet)1 tablet(s) By mouth 2 times a day. Refills: 0. amLODIPine (amLODIPine 10 mg oral tablet)1 tablet(s) By mouth daily. Refills: 0. aspirin (aspirin 81 mg oral enteric coated [...] mouth 2 times a day. Refills: 3. minoxidil (minoxidil 2.5 mg oral tablet)1 tablet(s) By mouth 2 times a day. Refills: 0. pantoprazole (pantoprazole 40 mg oral delayed release tablet)1 tablet(s) By mouth 2 times a day before meals for 90 day(s). Refills: 0. potassium chloride (Potassium Chloride (Eqv-K-Tab) 10 mEq oral tablet, extended release)1 tablet(s)By mouth daily with breakfast. sacubitril-valsartan (Entresto 24 mg-26 mg oral tablet)0.5 [...] Event Result?? Date/Time?? Oxygen Saturation 98 % 03/24/24 14:35:00 ? Voice to Text Technology Disclaimer This note may contain text inserted via Dragon or other voice to text assistive technology and machine clothing man, variances may occur. Outpatient Summary note * Essie Landon MA-MR: PERFORM Event Display: Ambulatory Patient Summary Authored Date: [id number] SHANON CHAPA :1945 Visit Date:03/24/2024 [facility] Visit Instructions Your Diagnosis Benign hypertension with CKD (chronic kidney disease) stage III Dizziness CKD (chronic kidney disease), stage III Hyperlipidemia CAD (coronary artery disease) S/P CABG x 1 S/P mitral valve repair Ascending aorta dilation PAF (paroxysmal atrial fibrillation) Hypothyroidism GERD with esophagitis History of prostate cancer S/P prostatectomy History of radiation therapy Hx of gout Anemia of chronic disease Annual physical exam Your Care Team Attending Physician - Courtney Prado MD Primary Care Physician - Courtney Prado MD Procedure History ???Repair of diaphragmatic hiatal hernia (11/23/2022)???UPPER GI ENDOSCOPY PERFORMED (2022)???Biopsy of prostate???Cardiac catheterization???cardiac stents???Prostatectomy Discharge Vitals Vital Signs Height: 182 cm Height Inches Conversion: 71.7 Weight: 109.7 kg Weight in Pounds (kg conversion): 241.3 Body Surface Area: 2.355 m2 Body Mass Index: 33.12 kg/m2 Temperature Temporal Artery: 36.6 DegC Systolic Blood Pressure:??164 mm Hg??High Diastolic Blood Pressure: 80 mm Hg Peripheral Pulse Rate: 84 bpm Oxygen Saturation: 98 % HRA Pain Present: No What to do next Scheduled Follow-Up Appointments Thursday 2:00 PM BRIDGES SUPERVISOR ?? With: Shereen Owens NP Where: [facility] [address] [phone] Thursday 3:00 PM BRIDGES SUPERVISOR ?? With: Where: [facility] Thursday 11:00 AM BRIDGES SUPERVISOR ?? With: Jeromy Perez MD Where: [facility] Thursday 10:30 AM CDT ?? With: Kemi Daley MD Where: [id number] Thursday 10:30 AM CDT ?? [facility] Thursday 11:30 AM CDT ?? With: Jose Martin Lomas M.D. Where: [facility] [address] [phone] Thursday 1:30 PM CDT ?? With: Courtney Prado MD Where: [facility] [address] [phone] You Need to Complete the Following CBC with Differential, 03/24/24, Blood, ROUTINE, Routine, Order for Future Visit, Print Label, Annual physical exam Anemia of chronic disease CKD (chronic kidney disease), stage III Benign hypertension with CKD (chronic kidney disease) stage III, Hold Until Collected Comprehensive Metabolic Profile, 03/24/24, Blood, ROUTINE, Routine, Order for Future Visit, Print Label, Annual physical exam Benign hypertension with CKD (chronic kidney disease) stage III CKD (chronic kidney disease), stage III, Not Required, Hold Until Collected Lipid Panel, 03/24/24, Blood, ROUTINE, Routine, Order for Future Visit, Print Label, Annual physical exam Hyperlipidemia CAD (coronary artery disease) Benign hypertension with CKD (chronic kidney disease) stage III, Not Required, Hold Until Collected, Yes TSH with Reflex, 03/24/24, Blood, ROUTINE, Routine, Order for Future Visit, Print Label, Annual physical exam Hypothyroidism PAF (paroxysmal atrial fibrillation), Not Required, Hold Until Collected Referral Information Referral Information ? No Results Found ? Medications What How Much When Instructions Unchanged allopurinol (allopurinol 100 mg oral tablet) [...] By mouth 2 times a day Unchanged minoxidil (minoxidil 2.5 mg oral tablet) 1 tablet(s) By mouth 2 times a day Unchanged pantoprazole (pantoprazole 40 mg oral delayed release tablet) 1 tablet(s) By mouth 2 times a day before meals Duration: 90 day(s) Unchanged potassium chloride (Potassium Chloride (Eqv-K-Tab) 10 mEq oral tablet, extended release) 1 tablet(s) By mouth Daily with breakfast Unchanged sacubitril-valsartan (Entresto 24 mg-26 mg oral tablet) 0.5 tablet(s) By mouth 2 times a day Unchanged sucralfate (sucralfate 1 g/ 10 mL oral suspension) 10 Milliliter By mouth 4 times a day Duration: 30 day(s) Unchanged vibegron (Gemtesa 75 mg oral tablet) 1 tablet(s) By mouth Daily Duration: 30 day(s) Medications and Immunizations Administered Medication Administrations ? No Results Found ? Allergies NKA Problems Ongoing Anemia of chronic disease Ascending aorta dilation CAD (coronary artery disease) CKD (chronic kidney disease), stage III Edema of right lower extremity Gall stone GERD with esophagitis Gout History of endocarditis History of prostate cancer History of radiation therapy Hx of gout Hypercalcemia Hyperlipidemia Hypertension Hypothyroidism Large hiatal hernia [...] other voice to text assistive technology and machine clothing man, variances may occur. Patient Care team information Care Team Personnel Name: Jada Reynaga MD Position: Physician - Cardiology Member Role: Specialist Physician Address: [address] [place] [address] [place] [address] [place] Name: Nancy Suresh Specialist Position: Population Health Coordinator Member Role: Population Health Coordinator Name: Shereen Owens [employer] SPECIALIST Position: AMB [employer] SPECIALIST/PA Member Role: Nurse Practitioner Address: [address] [place] [address] [place] [address] [place] Name: Khoi Hendrickson Member Role: Urologist Name: Kenia Gregory M.D. Position: Physician - Endocrine Member Role: Coroner Forensic Technician Address: [address] [facility] [address] [place], [place] [phone] [place] Name: Vlad Varner MD Position: Physician - Electrophysiology Member Role: Specialist Physician Address: [address] [place] [address] [place] Name: Jeromy Perez MD Position: Physician - Urology Member Role: Urologist Address: [address] [place] [address] [place] Name: Gab Marquez M.D. Position: Physician - Infectious Disease Member Role: Infectious Disease Address: [address] [facility] [address] [place] [address] [place] Name: Sheron Lamb SPECIALIST II Position: Population Health Coordinator Member Role: Population Health Coordinator Name: Yonas Clements MD Member Role: Specialist Physician Name: Mark Sesay M.D. Position: Physician - Cardiothoracic Surgery Member Role: Specialist Physician Address: [address] [place], [place] [address]- Name: Courtney Prado MD Position: Physician - Internal Medicine Member Role: Primary Care Physician Address: [address] [facility] [address] [place] [address] [place] Name: Jessica Crowe [employer] SPECIALIST Position: AMB [employer] SPECIALIST/PA Member Role: Nurse Practitioner Address: [address] [facility] [address] [place] [address] [place] Name: Fritz Oreilly MD Position: Physician - Infectious Disease Member Role: Specialist Physician Address: [address] [place], [place] [id number] [place] Name: Jose Martin Lomas M.D. Position: Physician - Cardiology Member Role: Specialist Physician Address: [facility] [address] [facility] [address] [place] [address] [place] Name: Macy Ansari RN Position: AMB ONC Nurse Navigator Member Role: Nurse Navigator Name: Courtney Prado MD Position: Physician - Internal Medicine Med Service: Resident Intern Massage Therapy Instructor Role: Attending Physician Address: [address] [facility] [address] [place] [address] [place] Care Team Related Persons Name: JL BROWER Name: ALLAN VALDES Name: FREDA REYES Insurance Providers Guarantor name: SHANON CHAPA Health Plan Information #: 2 Payer: Medicare Supplement Member Number: [id number] Policy Number: NA Health Plan Information #: 1 Payer: Medicare Member Number: [id number] Policy Number: NA
--- OUTSIDE RECORDS SUMMARY | 2024-04-20 01:05 | XMS_ITS | Continuity of Care Document ---
Author Organization [facility] Address [address] [place] [phone] Care Team Providers Care Taping Machine Operator Name Role Phone Emmanuel Broussard Primary Care Physician [phone] Jose Martin Lomas Unavailable Mark Sesay Unavailable [phone] Fritz Oreilly Unavailable Jada Reynaga Unavailable Yonas Clements Unavailable [phone] Encounter [facility] Financial Number [id number] Date(s): 09/19/20 - 09/19/[address] [id number] Discharge Disposition: Home or Self Care Attending Physician: Jose Martin Lomas M.D. Admitting Physician: Jose Martin Lomas M.D. Referring Physician: Jose Martin Lomas M.D. Allergies, Adverse Reactions, Alerts No Known Allergies Assessment and Plan Future Appointments Appointment Date:09/27/2020 10:15:00 AM Scheduled Provider: Location:[facility] Appointment Type:Anti Coag Clinic, Follow-Up Appointment Date:10/31/2020 10:15:00 AM Scheduled Provider:Vlad Varner M.D. Location:[facility] Appointment Type:SLES APRON OPERATOR New Patient Appointment Date:11/08/2020 10:00:00 AM Scheduled Provider:Emmanuel Broussard MD Location:[facility] Appointment Type:CON EP Established Patient Immunizations Given and Recorded Vaccine Date Status Refusal Reason SARS-CoV-2 (COVID-19) mRNA BNT-162b2 vax 1 07/28/20 [...] Tablet(s), 3, 3, Route to Pharmacy Electronically, [facility] #[id number], [id number] Start Date: 09/07/20 Stop Date: 09/02/21 Status: Ordered amLODIPine 5 mg oral tablet 5 mg, 1 tablet(s), Oral, daily, 30 tablet(s), Tablet(s), 0, 0, Route to Pharmacy Electronically, [facility] #[id number], [id number] Start Date: 08/20/20 Status: Ordered aspirin 81 [...] 3, TAKE 1 TABLET BY MOUTH DAILY, [facility] #[id number] Start Date: 08/30/20 Status: Ordered melatonin 3 mg oral tablet 3 mg, 1 tablet(s), Oral, qhs, 30 tablet(s), Tablet(s), 0 Start Date: 07/23/20 Status: Ordered Metoprolol Tartrate 50 mg oral tablet 50 mg, 1 tablet(s), Oral, bid, 180 tablet(s), Tablet(s), 3, 3, Route to Pharmacy Electronically, [facility] #[id number], [id number] Start Date: 09/19/20 Stop Date: 09/14/21 Status: [...] 0, 0, insomnia, Route to Pharmacy Electronically, [facility] #[id number], [id number] Start Date: 08/20/20 Status: Ordered warfarin 2 [...] monitoring encounter(Confirmed) Active Persistent atrial fibrillation(Confirmed) Active Diagnosis Diagnosis Type Effective Dates Health Status Clini saary Service Informant Afib 09/19/20 Non-Specified Procedures Procedure Date Related Diagnosis Body Site Status Biopsy of prostate Comple mary Cardiac catheterization C ompleted cardiac stents 1 Complete d Prostatectomy Completed 2018 Vital Signs Most recent to oldest [Reference Range]: 1 Peripheral Pulse Rate [60-100 bpm] 59 bp m *L* (09/19/20 2:18 PM) Respiratory Rate [14-22 br/min] 18 br/mi n (09/19/20 2:18 PM) Blood Pressure [89-139/60-90 mm Hg] 102/ 72mm Hg (09/19/20 2:18 PM) Oxygen Therapy Room air (09/19/20 2:18 PM) Social History Social History Type Response [...] II MITRAL ANNULOPLASTY 32MM 1 MR Conditional DDVTECH Unknown JASE:{01}[id number] Assigning Author ity:FDA STL-CLIP ATRI FLEX DEVICE [...]
--- OUTSIDE RECORDS SUMMARY | 2024-04-20 01:05 | XMS_ITS | Continuity of Care Document ---
Author Organization [facility] Address [address] [id number] Care Team Providers Care Cracker Dough Mixer Name Role Phone Courtney Prado Primary Care Physician Encounter [facility] Financial Number [id number] Date(s): 09/07/23 - 09/07/23 [facility] [address] [id number] Encounter Diagnosis Hypothyroidism(Discharge Diagnosis) - 09/07/23 Hypertension(Discharge Diagnosis) - 09/07/23 Discharge Disposition: Home or Self Care Attending Physician: Kemi Daley MD Allergies, Adverse Reactions, Alerts No Known Allergies Assessment and Plan Future Appointments Appointment Date:10/01/2023 02:45:00 PM Scheduled Provider: Location:[facility] Appointment Type:CCC [place] Nurse Visit [facility] Appointment Date:10/12/2023 11:20:00 AM Scheduled Provider:Jeromy Perez MD Location:[facility] Appointment Type:USSL Established Patient 20mins Appointment Date:03/24/2024 02:30:00 PM Scheduled Provider:Courtney Prado MD Location:[facility] Appointment Type:[facility] CPE Complete Physical Exam Appointment Date:09/12/2024 10:30:00 AM Scheduled Provider:Kemi Daley MD Location:[facility] Appointment Type:[facility] Established Patient Immunizations Given and Recorded [...] tablet(s), 2, 2, Route to Pharmacy Electronically, [facility] #[id number], [id number], 183, cm, 02/16/23 13:04:00 CDT, Height, 110.5, kg, 02/16/23 13:04:00 CDT, Weight Start Date: 05/15/23 Stop Date: 02/09/24 Status: Ordered amLODIPine 10 mg oral tablet 10 mg, 1 tablet(s), Oral, daily, 90 tablet(s), Tablet(s), 3, 3, Route to Pharmacy Electronically, [facility] #[id number], [id number], 183, cm, 07/01/2022 1255, Height, 117, kg, 07/01/2022 1255, Weight Start Date: 08/25/22 Status: Ordered Arexvy preservative-free intramuscular injection 60 mcg, 0.5 mL, IntraMuscular, Once, 0.5 mL, 0, 0, Pharmacy to administer, Route to Pharmacy Electronically, [facility] #[id number], [id number], 183, cm, 09/07/23 11:29:00 CDT, Height, 109.3, kg, 09/07/23 11:29:00 CDT, Weight Start Date: 09/07/23 Status: Ordered aspirin 81 mg oral enteric coated tablet 81 mg, 1 tablet(s), Oral, daily, Tab EC, 0 Start Date: 07/05/20 Status: Ordered atorvastatin 80 mg oral tablet 1 tablet(s), Oral, daily, 90 tablet(s), 3, Route to Pharmacy Electronically, [facility] #[id number], [id number], 183, cm, 02/16/23 13:04:00 CDT, Height, 110.5, kg, 02/16/23 13:04:00 CDT, Weight Start Date: 07/13/23 Status: Ordered cloNIDine 0.1 mg oral tablet 1 tablet(s), Oral, bid, 180 tablet(s), 2, 2, Route to Pharmacy Electronically, [facility]#[id number], [id number], 183, cm, 02/16/23 13:04:00 CDT, Height, 110.5, kg, 02/16/23 13:04:00 CDT, Weight Start Date: 08/06/23 Stop Date: 05/02/24 Status: Ordered ezetimibe 10 mg oral tablet 1 tablet(s), Oral, daily, 90 tablet(s), 3, 3, Route to Pharmacy Electronically, [facility] #[id number], [id number], 183, cm, 09/01/2022 1142, Height, 119, kg, 09/01/2022 1142, Weight Start Date: 10/14/22 Stop Date: 10/09/23 Status: Ordered Gemtesa 75 mg oral tablet 75 mg, 1 tablet(s), Oral, daily, 30 tablet(s), 3, 3, Route to Pharmacy Electronically, [facility] #[id number], [id number], 183, cm, 02/16/23 13:04:00 CDT, Height, 110.5, kg, 02/16/23 13:04:00 CDT, Weight Start Date: 07/20/23 Stop Date: 11/17/23 Status: Ordered levothyroxine 50 mcg (0.05 mg) oral tablet 50 mcg, 1 tablet(s), Oral, daily before breakfast, 90 tablet(s), Tablet(s), 3, 3, Route to PharmacyElectronically, [facility] #[id number], [id number], 183, cm, 09/01/2022 1142, Height, 119, kg, 09/01/2022 1142, Weight Start Date: 11/18/22 Status: Ordered Metoprolol Tartrate 50 mg oral tablet 1 tablet(s), Oral, bid, 180 tablet(s), 2, Route to Pharmacy Electronically, [facility] #[id number], [id number], 182, cm, 11/24/22 13:26:00 CDT, Height, 106, kg, 11/23/22 12:54:00 CDT, Weight Start Date: 12/24/22 Status: Ordered MiraLax oral powder for reconstitution 1 packet(s), Oral, daily, PRN, REC Powder, 0, constipation Start Date: 08/20/20 Status: Ordered pantoprazole 40 mg oral delayed release tablet 40 mg, 1 tablet(s), Oral, bid before meals, 180 tablet(s), Tab EC, 0, 0, Route to Pharmacy Electronically, [facility] #[id number], [id number], 182, cm, 11/24/2022 1326, Height, 106, kg, 11/23/2022 1254, Weight Start Date: 11/25/22 Stop Date: 02/23/23 Status: Ordered solifenacin 5 mg oral tablet 5 mg, 1 tablet(s), Oral, daily, 90 tablet(s), Tablet(s), 2, 2, Route to Pharmacy Electronically, [facility] #[id number], [id number], 183, cm, 02/16/23 13:04:00 CDT, Height, 110.5, kg, 02/16/23 13:04:00 CDT, Weight Start Date: 08/12/23 Stop Date: 05/08/24 Status: Ordered sucralfate 1 g/10 mL oral suspension 1 gm, 10 mL, Oral, qid, 1,200 mL, Susp, 0, 0, Route to Pharmacy Electronically, [facility] #[id number], [id number], 182, cm, 11/24/2022 1326, Height, 106, kg, [...] 1 Temperature Temporal Artery [35.8-38 Deg C] 35.8 DegC (09/07/23 10:19 AM) Peripheral Pulse Rate [60-100 bpm] 53 bp m *L* (09/07/23 10:19 AM) Blood Pressure [89-139/60-90 mm Hg] 130/ 78mm Hg (09/07/23 10:19 AM) Height 183 cm (09/07/23 10:19 AM) Weight 109.3 kg (09/07/23 10:19 AM) Social History Social History Type Response [...] Safety Implantable Status Assigning Authority Unknown Unknown [id number] Unknown 03/04/23 Unknown Unknown Active Unkn own Procedure Provider Procedure Date Device Type Site Mitral Valve Annuloplasty Unknown 07/11/20 Unknown Unknown Device Identifier Serial Number Lot or Batch Number Manufacturing Date Expiration Date Distinct Identification Code MRI Safety Implantable Status Assigning Authority [id number] Unknown Unknown 03/13/24 Unknown MR Conditi onal [...] Status:Met Progression:Met Note * [facility] Revolving Field Assembler: PERFORM Event Display: ROI_Correspondence Authored Date: [id number] * Event Display: ROI_Correspondence * Event Display: ROI_Correspondence Authored Date: [id number] Endocrinology Outpatient Note * Kemi Daley MD: PERFORM Event Display: Endocrinology Office/Clinic Note Authored Date: [id number] Patient Information Name:YOSEF CHAPA Address: [address] [place] [id number] Sex:Male Date of :1945 Emergency Contact:FREDA REYES Location[facility] Registration Date and Time:09/07/2023 10:00 CDT Primary Care Physician: Courtney Prado MD, Attending Physician: Kemi Daley MD, Chief Complaint Follow-up History of Present Illness Yosef Chapa is a pleasant 77-year-old male with history of hypothyroidism,??CAD s/p CABG, A.fib,??gallstone, gout, history of prostate cancer??s/p prostatectomy,??HLD, HTN??came for follow-up ?? S/P Lupron ?? On levothyroxine 50 mcg daily. ??Taking with other medications ?? No neck swelling,change in neck size, neck pain or discomfort ?? Appetite stable. Weight-??lost 21? lbs in 1 year ?? + Excess Fatigue No dysphagia/dyspnea/dysphonia No vision changes, eye pain, blurred vision, diplopia No constipation/diarrhea No palpitations No heat or cold intolerance No tremors, shakiness No nervousness Normal sleep No skin or hair changes No muscle weakness, muscle cramps No edema No night sweats ?? Compliant with medications +++??h/o meds -?? Amiodarone ?? Hypothyroidism - Dx i n 04/2021 ?? Review of Systems ? Positives are in bold. ?? Constitutional: fever, chills, fatigue, sleep issues Respiratory: cough, SOB Cardiovascular:?? palpitations, chest pain, chest pressure/discomfort, dyspnea Gastrointestinal: nausea, vomiting, constipation, diarrhea,??abdominal pain Genitourinary: dysuria, urinary incontinence, decreased sexual desire Musculoskeletal: Back pain, neck pain,??joint swelling/stiffness,??joint pains, ankle swelling, muscle weakness Neurological: headaches, dizziness, confusion, memory issues Endocrine: polyuria, polydipsia, nocturia,??hair changes,??weight gain, weight loss Skin: rashes, cyanosis Psych: anxiety, Feeling blue or discouraged ?? Vitals and Measurements Vital Signs Height: 183 cm Height Inches Conversion: 72 Weight: 109.3 kg Weight in Pounds (kg conversion): 240.5 Body Surface Area: 2.3571 m2 Body Mass Index: 32.64 kg/m2 Temperature Temporal Artery: 35.8 DegC Systolic Blood Pressure: 130 mm Hg Diastolic Blood Pressure: 78 mm Hg Peripheral Pulse Rate:??53 bpm??Low Oxygen Saturation: 97 % Physical Exam Appearance: Alert and oriented Head: normocephalic Eyes: Conjunctiva/lids WNL ENT, Mouth:?? Hearing WNL Neck: No thyroid nodule or enlargement. Resp.:Effort nonlabored and clear to auscultation CVS:?? no murmurs, pulse wnl GI/Abd: soft Extremities: No pedal edema Skin: No rashes Neuro: Non-focal.? Psych: Judgement/insight WNL,?? Mood/affect WNL Assessment/Plan 1.??Hypothyroidism ?? On levothyroxine 50 mcg daily He is taking levothyroxine with other medications ?? Discussed spacing levothyroxine with food and other medications Recheck TSH, free T4 ?? [1] ? Ordered: Free T4 Return to Clinic - Established Patient TSH (Highly Sensitive) ?? 2.??Hypertension ?? BP stable. ??Continue current antihypertensive medications ?? [2] ?? Patient Instructions ?? Check labs ? Problem List/Past Medical History Ongoing Anemia [...] PERFORMED (2022)???Biopsy of prostate???Cardiac catheterization???cardiac stents???Prostatectomy Medications What How Much When Instructions Unchanged [...] mouth Daily as needed for constipation Unchanged RSV vaccine preF3, recombinant (Arexvy preservative-free [...] tablet(s) By mouth Daily Duration: 30 day(s) ?? What When Comments Stop Taking leuprolide (Lupron) Allergies NKA Social History Alcohol Never alcohol user, 11/23/2022 Substance Abuse Never drug user, 02/16/2023 Tobacco Never smoker, Smokeless Tobacco use: Never. No Cessation Counseling., 11/23/2022 Family History ?Mother ?Positive ?Family members ?Father ?Positive ?Family members ?Father ?Positive ?Heart attack ?Father ?Positive ?Heart disease ?Mother ?Positive ?Stroke ? Lab Results Test Name Test Result Date/TimeTSH, Highly Sensitive 1.97 uIU/mL 09/07/2023 12:37 CDT Free T4 1.5 ng/dL 09/07/2023 12:37 CDT POC Results Event Name?? Event Result?? Date/Time?? Oxygen Saturation 97 % 09/07/23 10:19:00 ? Voice to Text Technology Disclaimer This note may contain text inserted via Dragon or other voice to text assistive technology and hospice nurse, variances may occur. [1]??Endocrinology Office Visit Note; Kemi Daley MD 09/01/2022 12:06 CDT [2]??Endocrinology Office Visit Note; Kemi Daley MD 09/01/2022 12:06 CDT Outpatient Summary note * Heather Rizo HAY SORTER: PERFORM Event Display: Ambulatory Patient Summary Authored Date: [id number] YOSEF CHAPA :1945 Visit Date:09/07/2023 [facility] Visit Instructions Your Diagnosis Hypothyroidism Hypertension Your Care Team Attending Physician - Kemi Daley MD Primary Care Physician - Courtney Prado MD Procedure History ???Repair of diaphragmatic hiatal hernia (11/23/2022)???UPPER GI ENDOSCOPY PERFORMED (2022)???Biopsy of prostate???Cardiac catheterization???cardiac stents???Prostatectomy Discharge Vitals Vital Signs Height: 183 cm Height Inches Conversion: 72 Weight: 109.3 kg Weight in Pounds (kg conversion): 240.5 Body Surface Area: 2.3571 m2 Body Mass Index: 32.64 kg/m2 Temperature Temporal Artery: 35.8 DegC Systolic Blood Pressure: 130 mm Hg Diastolic Blood Pressure: 78 mm Hg Peripheral Pulse Rate:??53 bpm??Low Oxygen Saturation: 97 % What to do next Instructions From Your Doctor ?? Check labs ? Scheduled Follow-Up Appointments Thursday 11:15 AM CDT ?? With: Courtney Prado MD Where: [facility] [address] [facility] [address] [place], [place] [phone] 2023 2:45 PM CDT ?? With: Where: [facility] [address] [facility] [address] [place], [place] [phone] Thursday 11:20 AM CDT ?? With: Jeromy Perez MD Where: [facility] Thursday 3:15 PM CDT ?? With: Courtney Prado MD Where: [facility] [address] [phone] Thursday 10:30 AM CDT ?? With: Kemi Daley MD Where: [facility] You Need to Complete the Following Free T4, 09/07/23, Blood, ROUTINE, Routine, Order for Future Visit, Nurse Collect, Print Label, Hypothyroidism, Not Required, Hold Until Collected TSH (Highly Sensitive), 09/07/23, Blood, ROUTINE, Routine, Order for Future Visit, Nurse Collect, Print Label, Hypothyroidism, Not Required, Hold Until Collected Referral Information [...] By mouth Daily Duration: 90 day(s) Unchanged fesoterodine (Toviaz 4 mg oral tablet, extended release) 1 tablet(s) By mouth Daily Unchanged gabapentin (gabapentin 100 mg oral capsule) 1 capsule(s) By mouth 3 times a day Duration: 30 day(s) Unchanged levothyroxine (levothyroxine 50 mcg (0.05 [...] tablet(s) By mouth Daily Duration: 30 day(s) ?? What When Comments Stop Taking leuprolide (Lupron) Medications and Immunizations Administered Medication Administrations ? [...] other voice to text assistive technology and hospice nurse, variances may occur. Patient Care team information Care Team Personnel Name: Jada Reynaga MD Position: Physician - Cardiology Member Role: Specialist Physician Address: Address: [address] [facility] [address] [place] [address] [place] Name: Nancy Suresh Specialist Position: Population Health Coordinator Member Role: Population Health Coordinator Name: Khoi Hendrickson Member Role: Urologist Name: Kenia Gregory M.D. Position: Physician - Endocrine Member Role: Machinist Tool And Die Address: Address: [address] [facility] [address] [place], [place] [phone] [place] Name: Vlad Varner MD Position: Physician - Electrophysiology Member Role: Specialist Physician Address: Address: [address] [place] [address] [place] Name: Jeromy Perez MD Position: Physician - Urology Member Role: Urologist Address: Address: [address] [place] [address] [place] Name: Gab Marquez M.D. Position: Physician - Infectious Disease Member Role: Infectious Disease Address: Address: [address] [facility] [address] [place] [address] Name: Sheron Lamb SPECIALIST II Position: Population Health Coordinator Member Role: Population Health Coordinator Name: Yonas Clements MD Member Role: Specialist Physician Name: Mark Sesay M.D. Position: Physician - Cardiothoracic Surgery Member Role: Specialist Physician Address: Address: [address] [place], [place] [address]- Name: Courtney Prado MD Position: Physician - Internal Medicine Member Role: Primary Care Physician Address: Address: [address] [place] [phone] Name: Fritz Oreilly MD Position: Physician - Infectious Disease Member Role: Specialist Physician Address: Address: [address] [facility] [address] [place], [place] [phone] [place] Name: Jose Martin Lomas M.D. Position: Physician - Cardiology Member Role: Specialist Physician Address: Address: [facility] [address] [place] [address] [place] Name: Macy Ansari RN Position: AMB ONC Nurse Navigator Member Role: Nurse Navigator Name: Kemi Daley MD Position: Physician - Endocrine Med Service: Low Vision Therapist Cracker Dough Mixer Role: Attending Physician Address: Address: [address] [facility] [address] [place], [place] [phone] [place] Care Team Related Persons Name: JL BROWER Name: ALLAN VALDES Name: FREDA REYES
--- OUTSIDE RECORDS SUMMARY | 2024-04-20 01:05 | XMS_ITS | Continuity of Care Document ---
Author Organization [facility] Address [address] [place] [address] [address] Cheng [address] [place], [place] [id number] Care Team Providers Care Revenue Specialist Name Role Phone Courtney Prado Primary Care Physician [phone] Encounter [facility] Financial Number [id number] Date(s): 07/06/23 - 07/06/23 [facility] [address] Shannon Cheng [address] [place], [place] [id number] Encounter Diagnosis History of prostate cancer(Discharge Diagnosis) - 07/06/23 Radiation cystitis(Discharge Diagnosis) - 07/06/23 Frequency of urination(Discharge Diagnosis) - 07/06/23 Microhematuria(Discharge Diagnosis) - 07/06/23 Discharge Disposition: Home or Self Care Attending Physician: Jeromy Perez MD Allergies, Adverse Reactions, Alerts No Known Allergies Assessment and Plan Future Appointments Appointment Date:08/07/2023 12:30:00 PM Scheduled Provider:Jose Martin Lomas M.D. Location:[facility] Appointment Type:[facility] EP Established Patient Cesilia Appointment Date:09/07/2023 10:00:00 AM Scheduled Provider:Kemi Daley MD Location:[facility] Appointment Type:[facility] Established Patient Appointment Date:09/07/2023 11:15:00 AM Scheduled Provider:Courtney Prado MD Location:[facility] Appointment Type:[facility] EP Established Patient Appointment Date:10/12/2023 11:20:00 AM Scheduled Provider:Jeromy Perez MD Location:[facility] Appointment Type:S Established Patient 20mins Immunizations Given and Recorded Vaccine Date Status Refusal Reason influenza virus vaccine, inactivated 02/16/23 Give n influenza virus vaccine, live, trivalent 05/09/21 Recorded SARS-CoV-2 mRNA (5y-11y) vaccine 05/09/21 Recorded SARS-CoV-2 (COVID-19) mRNA BNT-162b2 vax 1 07/28/20 Recorded SARS-CoV-2 (COVID-19) mRNA BNT-162b2 vax 2 07/03/20 Recorded 1Result Comment: [place] 2Result Comment: [place] Medications allopurinol 100 mg oral tablet 100 mg, 1 tablet(s), Oral, bid, 180 tablet(s), 2, 2, Route to Pharmacy Electronically, [facility] #[id number], [id number], 183, cm, 02/16/23 13:04:00 CDT, Height, 110.5, kg, 02/16/23 13:04:00 CDT, Weight Start Date: 05/15/23 Stop Date: 02/09/24 Status: Ordered amLODIPine 10 mg oral tablet 10 mg, 1 tablet(s), Oral, daily, 90 tablet(s), Tablet(s), 3, 3, Route to Pharmacy Electronically, [facility] #[id number], [id number], 183, cm, 07/01/2022 1255, Height, 117, kg, [...] tablet(s), 0, 0, Route to Pharmacy Electronically, [facility] #[id number], [id number], 183, cm, 02/16/23 13:04:00 CDT, Height, 110.5, kg, 02/16/23 13:04:00 CDT, Weight Start Date: 06/15/23 Status: Ordered ezetimibe 10 mg oral tablet 1 tablet(s), Oral, daily, 90 tablet(s), 3, 3, Route to Pharmacy Electronically, [facility] #[id number], [id number], 183, cm, 09/01/2022 1142, Height, 119, kg, 09/01/2022 1142, Weight Start Date: 10/14/22 Stop Date: 10/09/23 Status: Ordered gabapentin 100 mg oral capsule 100 mg, 1 capsule(s), Oral, tid, 90 capsule(s), Capsule(s), 0, 0, Route to Pharmacy Electronically,[facility] #[id number], [id number], 183, cm, 02/16/23 13:04:00 CDT, Height, 110.5, kg, 02/16/23 13:04:00 CDT, Weight Start Date: 03/23/23 Stop Date: 04/22/23 Status: Ordered levothyroxine 50 mcg (0.05 mg) oral tablet 50 mcg, 1 tablet(s), Oral, daily before breakfast, 90 tablet(s), Tablet(s), 3, 3, Route to PharmacyElectronically, [facility] #[id number], [id number], 183, cm, 09/01/2022 1142, Height, 119, kg, [...] 180 tablet(s), 2, Route to Pharmacy Electronically, [facility] #[id number], [id number], 182, cm, 11/24/22 13:26:00 CDT, Height, 106, kg, 11/23/22 12:54:00 CDT, Weight Start Date: 12/24/22 Status: Ordered MiraLax oral powder for reconstitution 1 packet(s), Oral, daily, PRN, REC Powder, 0, constipation Start Date: 08/20/20 Status: Ordered pantoprazole 40 mg oral delayed release tablet 40 mg, 1 tablet(s), Oral, bid before meals, 180 tablet(s), Tab EC, 0, 0, Route to Pharmacy Electronically, [facility] #[id number], [id number], 182, cm, 11/24/2022 1326, Height, 106, kg, 11/23/2022 1254, Weight Start Date: 11/25/22 Stop Date: 02/23/23 Status: Ordered sucralfate 1 g/10 mL oral suspension 1 gm, 10 mL, Oral, qid, 1,200 mL, Susp, 0, 0, Route to Pharmacy Electronically, [facility] #[id number], [id number], 182, cm, 11/24/2022 1326, Height, 106, kg, 11/23/2022 1254, Weight Start Date: 11/25/22 Stop Date: 12/25/22 Status: Ordered Tylenol 500 mg, Oral, [id number], PRN, 0, pain, mild Start Date: 11/23/22 [...] Safety Implantable Status Assigning Authority Unknown Unknown [id number] Unknown 03/04/23 Unknown Unknown Active Unkn own Procedure Provider Procedure Date Device Type Site Mitral Valve Annuloplasty Unknown 07/11/20 Unknown Unknown Device Identifier Serial Number Lot or Batch Number Manufacturing Date Expiration Date Distinct Identification Code MRI Safety Implantable Status Assigning Authority [id number] Unknown Unknown 03/13/24 Unknown MR Candace stephenson [...] Date:05/28/20 End Date: Status:Met Progression:Met Note * Leanna Ponce Cosmetic Sales Advisor: PERFORM Event Display: Urine Dipstick POC - Text Authored Date: [id number] Urine Dipstick POC Entered On: 07/06/2023 10:19 CABLE PULLER Performed On: 07/06/2023 10:18 CABLE PULLER by Leanna Ponce Cosmetic Sales Advisor Urine Dipstick Urine Color Urine Dipstick : Yellow Urine Appearance Urine Dipstick : Clear pH Urine Dipstick : 5 Leukocytes Urine Dipstick : Negative Nitrite Urine Dipstick : Negative Protein Urine Dipstick : 4+ (>2000 mg/dl) Glucose Urine Dipstick : Negative Ketones Urine Dipstick : Negative Urobilinogen Urine Dipstick : Normal Bilirubin Urine Dipstick : Negative Blood Urine Dipstick : Trace Urine drug screen : No Leanna Ponce Cosmetic Sales Advisor - 07/06/2023 10:18 CABLE PULLER * Event Display: Consent/Registration Forms Authored Date: [id number] * Event Display: Consent/Registration Forms Authored Date: [id number] * Vini Núñez [employer] Summer Sessions Director: PERFORM Event Display: ROI_Correspondence Authored Date: [id number] * Event Display: ROI_Correspondence * Event Display: ROI_Correspondence Authored Date: [id number] Patient Care team information Care Team Personnel Name: Jada Reynaga MD Position: Physician - Cardiology Member Role: Specialist Physician Address: Address: [address] [place] [address] [place] Name: Nancy Suresh Specialist Position: Population Health Coordinator Member Role: Population Health Coordinator Name: Khoi Hendrickson Role: Urologist Name: Kenia Gregory M.D. Position: Physician - Endocrine Member Role: Wholesale Parts Salesperson Address: Address: [address] [place], [place] [id number] [place] Name: Vlad Varner MD Position: Physician - Electrophysiology Member Role: Specialist Physician Address: Address: [address] [place] [address] [address] [place] [address] [place] Name: Gab Marquez M.D. Position: Physician - Infectious Disease Member Role: Infectious Disease Address: Address: [address] [place] [address] [place] Name: Sheron Lamb II Position: Population Health Coordinator Member Role: Population Health Coordinator Name: Yonas Clements MD Member Role: Specialist Physician Address: Address: [address] [place] [address] [place] Name: Mark Sesay M.D. Position: Physician - Cardiothoracic Surgery Member Role: Specialist Physician Address: Address: [address] [place], [place] [address]- Name: Courtney Prado MD Position: Physician - Internal Medicine Member Role: Primary Care Physician Address: Address: [address] Name: Fritz Oreilly MD Position: Physician - Infectious Disease Member Role: Specialist Physician Address: Address: [address] [place], [place] [phone] [place] Name: Jose Martin Lomas M.D. Position: Physician - Cardiology Member Role: Specialist Physician Address: Address: [facility] [address] [place] [address] [place] Name: Macy Ansari RN Position: AMB ONC Nurse Navigator Member Role: Nurse Navigator Care Team Related Persons Name: JL BROWER Name: ALLAN VALDES Name: FREDA REYES
--- OUTSIDE RECORDS SUMMARY | 2024-04-20 01:05 | XMS_ITS | Continuity of Care Document ---
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 Referring Physician: Vlad Varner M.D. Allergies, Adverse Reactions, Alerts No Known Allergies Assessment and Plan Future Appointments Appointment Date:05/09/2021 10:05:00 AM Scheduled Provider: Location:[facility] Appointment Type:Anti [facility] Clinic, Follow-Up Appointment Date:05/09/2021 11:00:00 AM Scheduled Provider:Emmanuel Broussard MD Location:[facility] Appointment Type:CON EP Established Patient Appointment Date:06/12/2021 11:00:00 AM Scheduled Provider:Jose Martin Lomas M.D. Location:[facility] Care Appointment Type:CCC EP Established Patient Appointment Date:04/22/2022 10:15:00 AM Scheduled Provider:Vlad Varner M.D. Location:[facility] Electo Spec Appointment Type:[facility] EP Established Patient Immunizations Given and Recorded Vaccine Date Status Refusal Reason SARS-CoV-2 (COVID-19) mRNA BNT-162b2 vax 1 07/28/20 Recorded SARS-CoV-2 (COVID-19) mRNA BNT-162b2 vax 2 07/03/20 Recorded 1Result Comment: [place] 2Result Comment: [place] Medications allopurinol 300 mg oral tablet See Instructions, 90 tablet(s), 3, TAKE 1 TABLET BY MOUTH DAILY, Route to Pharmacy Electronically, [facility] #[id number], [id number], Instructions Replace Required Details, 182, cm, 12/10/2020 1222, Height, 115.8, kg, 12/10... Start Date: 01/28/21 Status: Ordered amiodarone 200 mg oral tablet 200 mg, 1 tablet(s), Oral, daily, 90 tablet(s), Tablet(s), 3, 3, Route to Pharmacy Electronically, [facility] #[id number], [id number] Start Date: 09/07/20 Stop Date: 09/02/21 Status: Ordered amLODIPine 5 mg oral tablet 1 tablet(s), Oral, daily, 30 tablet(s), 10, 0, Route to Pharmacy Electronically, [facility] #[id number], [id number], 182, cm, 09/14/2020 1114, Height, 109, kg, 111[address], Weight Start Date: 10/24/20 Status: Ordered aspirin 81 mg oral enteric coated tablet 81 mg, 1 tablet(s), Oral, daily, Tab EC, 0 Start Date: 07/05/20 Status: Ordered atorvastatin 80 mg oral tablet See Instructions, 90 tablet(s), 2, TAKE 1 TABLET(80 MG) BY MOUTH DAILY, Route to Pharmacy Electronically, [facility] #[id number], [id number], Instructions Replace Required Details, 182, cm, 12/10/2020 1222, Height, 115.8,... Start Date: 01/16/21 Status: Ordered ezetimibe 10 mg oral tablet 1 tablet(s), Oral, daily, 30 tablet(s), 10, 0, Route to Pharmacy Electronically, [facility] #[id number], [id number], 182, cm, 12/10/2020 1222, Height, 115.8, kg, 22, Weight Start Date: 01/25/21 Status: Ordered furosemide 20 mg oral tablet See Instructions, # 90 tablet(s), Refill #: 3 Total Refills: 3, TAKE 1 TABLET BY MOUTH DAILY, [id number] Start Date: 08/30/20 Status: Ordered metoprolol tartrate [...] Effective Dates Health Status Clinical Service Informant Persistent atrial fibrillation 04/17/21 Non-Specified Persistent atrial fibrillation 04/17/21 Non-Specified 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 04/17/21 Non-Specified Procedures Procedure Date Related Diagnosis Body Site Status Biopsy of prostate Comple mary Cardiac catheterization C ompleted cardiac stents 1 Complete d Prostatectomy Completed 2018 Results Laboratory List Name Date Comprehensive Metabolic Profile (CMP) Free T4 04/17/21 TSH (Highly Sensitive) (TSH) 04/17/21 Most recent to oldest [Reference Range]: 1 Albumin [3.5-5.0 g/dL] 4.1 g/dL (04/17/21 1:39 PM) Alk Phos [38-126 U/L] 119 U/L (04/17/21 1:39 PM) BUN [9-20 mg/dL] 22 mg/dL *H* (04/17/21 1:39 PM) Calcium [8.4-10.2 mg/dL] 9.2 mg/dL (04/17/21 1:39 PM) Chloride [98-107 mmol/L] 108 mmol/L *H* (04/17/21 1:39 PM) CO2 [22-30 mmol/L] 26 mmol/L (04/17/21 1:39 PM) Glucose [74-106 mg/dL] 100 mg/dL (04/17/21 1:39 PM) Potassium [3.5-4.9 mmol/L] 3.7 mmol/L (04/17/21 1:39 PM) Sodium [137-145 mmol/L] 143 mmol/L (04/17/21 1:39 PM) Protein, Total [6.5-8.6 g/dL] 7.0 g/dL (04/17/21 1:39 PM) TSH, Highly Sensitive [0.47-4.68 uIU/mL] 13.80 uIU/mL *H* (04/17/21 1:39 PM) AST [17-59 U/L] 42 U/L (04/17/21 1:39 PM) Bilirubin, Total [0.2-1.3 mg/dL] 0.8 mg/ dL (04/17/21 1:39 PM) Free T4 [0.8-2.2 ng/dL] 0.8 ng/dL (04/17/21 1:39 PM) Creatinine [0.7-1.3 mg/dL] 1.9 mg/dL *H* (04/17/21 1:39 PM) eGFR(4vMDRD) [>=60 mL/min/1.73m2] 35 mL/ min/1.73m2 *L* (04/17/21 1:39 PM) eCrCl(C-Gault) 0.5 mL/min/kg (04/17/21 1:39 PM) Anion Gap [7-16 mmol/L] 9 mmol/L (04/17/21 1:39 PM) ALT [<=50 U/L] 35 U/L (04/17/21 1:39 PM) Social History Social History Type Response Alcohol Never alcohol user Substance Abuse Never drug user Smoking Status Never smoker;Never; Tobacco Cessation Counseling Requested N/A entered on: 05/21/20 Sex Male Medical Equipment Implanted Date:07/11/20Target Site:Unknown Description Quantity MRI Company Model STL-SCREW SELF LOCKING 3.5MM X [address] [facility] Unknown JASE:No Information Assigning Authority: FDA STL-PLATE LOW PROFILE V [address] [facility] Unknown JASE:No Information Assigning Authority: FDA STL-PLATE LOW PROFILE H [address] [facility] Unknown JASE:No Information Assigning Authority: FDA STL-PLATE LOW PROFILE O [address] [facility] Unknown JASE:No Information Assigning Authority: FDA STL-RING PHYSIO II MITRAL ANNULOPLASTY 32MM 1 MR Conditional [place] Unknown JASE:{[id number] Assigning Author ity:FDA STL-CLIP ATRI FLEX DEVICE [...]
--- OUTSIDE RECORDS SUMMARY | 2024-04-20 01:05 | XMS_ITS | Continuity of Care Document ---
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 Name Role Phone Johan Zakitaylormarthasherrill Primary Care Physician [phone] Encounter [facility] Financial Number [id number] Date(s): 03/28/24 - 03/28/[address] [id number] Encounter Diagnosis Dizziness of unknown etiology(Discharge Diagnosis) - 03/28/24 CAD (coronary artery disease)(Discharge Diagnosis) - 03/28/24 Ascending aorta dilation(Discharge Diagnosis) - 03/28/24 Hyperlipidemia(Discharge Diagnosis) - 03/28/24 Hypertension(Discharge Diagnosis) - 03/28/24 S/P CABG x 1(Discharge Diagnosis) - 03/28/24 Systolic heart failure(Discharge Diagnosis) - 03/28/24 Discharge Disposition: Home or Self Care Attending Physician: Shereen Owens NP Allergies, Adverse Reactions, Alerts No Known Allergies Assessment and Plan Future Appointments Appointment Date:06/01/2024 11:00:00 AM Scheduled Provider:Jeromy Perez MD Location:[facility] Appointment Type:USSL Established Patient 20mins Appointment Date:09/12/2024 10:30:00 AM Scheduled Provider:Kemi Daley MD Location:[facility] Appointment Type:[facility] EP Established Patient Appointment Date:10/10/2024 10:30:00 AM Scheduled Provider: Location:[facility] Cardiology Appointment Type:Echocardiogram Complete Study Appointment Date:10/10/2024 11:30:00 AM Scheduled Provider:Jose Martin Lomas M.D. Location:[facility] Appointment Type:[facility] EP Established Patient Cesilia Appointment Date:10/10/2024 01:30:00 PM Scheduled Provider:Courtney Prado MD Location:[facility] Appointment Type:CIMR EP Established Patient Immunizations Given and Recorded Vaccine Date Status Refusal Reason influenza virus vaccine, inactivated 02/16/23 Give n influenza virus vaccine, live, trivalent 05/09/21 Recorded SARS-CoV-2 mRNA (5y-11y) vaccine 05/09/21 Recorded SARS-CoV-2 (COVID-19) mRNA BNT-162b2 vax 1 07/28/20 Recorded SARS-CoV-2 (COVID-19) mRNA BNT-162b2 vax 2 07/03/20 Recorded 1Result Comment: [place] 2Result Comment: [place], [place] Medications allopurinol 100 mg oral tablet 1 tablet(s), Oral, bid, 180 tablet(s), 0, Route to Pharmacy Electronically, [facility] #[id number], [id number], 182, cm, 02/25/24 13:51:00 CDT, Height, 105, kg, 02/25/24 13:51:00 CDT, Weight Start Date: 02/29/24 Status: Ordered amLODIPine 10 mg oral tablet 1 tablet(s), Oral, daily, 90 tablet(s), 0, Route to Pharmacy Electronically, [facility] #[id number], [id number], 182, cm, 02/25/24 13:51:00 CDT, Height, 105, kg, 02/25/24 13:51:00 CDT, Weight Start Date: 02/29/24 Status: Ordered aspirin 81 mg oral enteric coated tablet 81 mg, 1 tablet(s), Oral, daily, Tab EC, 0 Start Date: 07/05/20 Status: Ordered atorvastatin 80 mg oral tablet 1 tablet(s), Oral, daily, 90 tablet(s), 3, Route to Pharmacy Electronically, [facility] #[id number], [id number], 183, cm, 02/16/23 13:04:00 CDT, Height, 110.5, kg, 02/16/23 13:04:00 CDT, Weight Start Date: 07/13/23 Status: Ordered cloNIDine 0.1 mg oral tablet 1 tablet(s), Oral, bid, 180 tablet(s), 2, 2, Route to Pharmacy Electronically, [id number], [id number], 183, cm, 02/16/23 13:04:00 CDT, Height, 110.5, kg, 02/16/23 13:04:00 CDT, Weight Start Date: 08/06/23 Stop Date: 05/02/24 Status: Ordered ezetimibe 10 mg oral tablet 1 tablet(s), Oral, daily, 90 tablet(s), 3, [id number], [id number], 182, cm, 10/28/23 9:42:00 CDT, Height, 105.2, kg, 10/28/23 9:42:00 CDT, Weight Start Date: 01/07/24 Status: Ordered irbesartan 150 mg oral tablet 150 mg, 1 tablet(s), Oral, daily, 90 tablet(s), Tablet(s), 3, 3, [facility][id number], [id number], 182, cm, 03/28/24 13:54:00 FINANCIAL SPECIALIST, Height, 111, kg, 03/28/24 13:54:00 FINANCIAL SPECIALIST, Weight Start Date: 03/28/24 Status: Ordered levothyroxine 50 mcg (0.05 mg) oral tablet 1 tablet(s), Oral, daily before breakfast, 90 tablet(s), 0, Route to Pharmacy Electronically, [facility] #[id number], [id number], 182, cm, 02/25/24 13:51:00 CDT, Height, 105, kg, 02/25/24 13:51:00 CDT, Weight Start Date: 03/18/24 Status: Ordered Metoprolol Tartrate 50 mg oral tablet 1 tablet(s), Oral, bid, 180 tablet(s), 3, Route to Pharmacy Electronically, [id number], [id number], 182, cm, 10/28/23 9:42:00 CDT, Height, 105.2, kg, 10/28/23 9:42:00 CDT, Weight Start Date: 11/09/23 Status: Ordered minoxidil 2.5 mg oral tablet 1 tablet(s), Oral, bid, 180 tablet(s), 0, Route to Pharmacy Electronically, [facility][id number], [id number], 182, cm, 02/25/24 13:51:00 CDT, Height, 105, kg, 02/25/24 13:51:00 CDT, Weight Start Date: 02/25/24 Status: Ordered pantoprazole 40 mg oral delayed release tablet 40 mg, 1 tablet(s), Oral, bid before meals, 180 tablet(s), Tab EC, 0, 0, Route to Pharmacy Electronically, [facility] #[id number], [id number], 182, cm, 11/24/2022 1326, Height, 106, kg, [...] Susp, 0, 0, Route to Pharmacy Electronically, [facility] #[id number], [id number], 182, cm, 11/24/2022 1326, Height, 106, kg, [...] Range]: 1 Peripheral Pulse Rate [60-100 bpm] 58 bp m *L* (03/28/24 1:54 PM) Blood Pressure [89-139/60-90 mm Hg] 124/ 80mm Hg (03/28/24 1:54 PM) Height 182 cm (03/28/24 1:54 PM) Weight 111 kg (03/28/24 1:54 PM) Social History Social History Type Response [...] Safety Implantable Status Assigning Authority Unknown Unknown [id number] Unknown 03/04/23 Unknown Unknown Active Unkn own Procedure Provider Procedure Date Device Type Site Mitral Valve Annuloplasty Unknown 07/11/20 Unknown Unknown Device Identifier Serial Number Lot or Batch Number Manufacturing Date Expiration Date Distinct Identification Code MRI Safety Implantable Status Assigning Authority [id number] Unknown Unknown 03/13/24 Unknown MR Conditi onal [...] Status:Met Progression:Met Note * [facility] [employer]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: PERFORM Event Display: ROI_Correspondence Authored Date: [id number] * Event Display: ROI_Correspondence * Event Display: ROI_Correspondence Authored Date: [id number] Cardiology Outpatient Note * Shereen Owens NATUROPATHIC DOCTOR: PERFORM Event Display: Cardiology Office/Clinic Note Authored Date: [id number] Patient Information Name:SHANON BROWN Address: [address] [place] [id number] Sex:Male Date of :1945 Emergency Contact:FREDA REYES [facility]:[id number] Location:[facility] Registration Date and Time:03/28/2024 13:41 FINANCIAL SPECIALIST Primary Care Physician: Courtney Prado MD, Attending Physician: Shereen Owens NATUROPATHIC DOCTOR, Chief Complaint MRR PT TESTING F/U History of Present Illness SHANON BROWN??is a pleasant??78 year old??who with history of CAD, HTL, HLD, p AFib, s/p CABG X 1, s/p MV repair??presents with systolic heart failure fu.? Last seen 02/24 for HTN and found to have systolic heart failure EF 38%. Stress MPI was negative. Dizziness was worsening per PCP, per patient feels like vertigo. Has been previously seen by ENT??fortinnitus and vertigo. Eating and drinking okay.? Patient denies dizziness, lightheadedness, shortness of breath, palpitations, leg swelling, blurry vision, or TIA symptoms.??Recent Lexiscan negative for ischemia.? Review of Systems ?Constitutional ? Fever?No.?? Weight Gain?No.?? Weight Loss?No.?? Fatigue?Yes.? Eyes ? Vision Change?No.? Respiratory ? Wheezing/Asthma?No.?? Snoring?No.?? Sleep Apnea?likely?.?? Cough?No.?? Coughing up blood?No.?? Sputum?No.?? Emphysema?likely.?? Pulmonary [...] Painful Urination?No.?? Blood in Urine?No. Kidney problems?No. ?? Vitals and Measurements Vital Signs Height: 182 cm Height Inches Conversion: 71.7 Weight: 111 kg Weight in Pounds (kg conversion): 244.2 Body Surface Area: 2.3689 m2 Body Mass Index: 33.51 kg/m2 Systolic Blood Pressure: 124 mm Hg Diastolic Blood Pressure: 80 mm Hg Peripheral Pulse Rate:??58 bpm??Low Oxygen Saturation: 98 % Physical Exam General Appearance: alert and oriented, in no acute distress. Pale, fatigued? ENT: Neck: supple, no jugular venous distention, no mass, no lymphadenopathy.??Mucous membranes moist Chest: normal shape and expansion with respiration.?? Heart: normal rate, regular rhythm, no murmurs.?? Lungs: respiratory rate is normal, but breath sounds are clear bilaterally.?? Extremities: no clubbing, cyanosis or edema, peripheral pulses, 2+ intact bilateral DP/PT.?? Psych: appropriate for situation?? Assessment/Plan 1.??Dizziness of unknown etiology -likely related to vertigo given recent negative Lexiscan -Will check??Carotid Duplex -ECHO pending, labs pending?? -revisit with ENT Ordered: US CAROTID DUPLEX BILATERAL, Dizziness and giddiness, 03/28/24, ROUTINE, [facility] Radiology Service Area, Dizziness and giddiness, Not Required, Future Order, Electronic, RADIOLOGY ?? 2.??Systolic heart failure -HFrEF??EF 38% -intolerant to Entresto-dizziness?? -declined Farxiga due to cost -declined Spironolactone due to kidney failure??history -on Metoprolol? 3.??CAD (coronary artery disease) -continue ASA, Atorvastatin, metoprolol? 4.??Ascending aorta dilation -ascending 4.3 -Valsalva??4.4 -ECHO pending? 5.??Hyperlipidemia -elevated triglycerides ?? 6.??Hypertension -uncontrolled, labile ? 7.??S/P CABG x 1 ?? Orders: irbesartan(irbesartan 150 mg oral tablet), 150 mg= 1 tablet(s), Oral, daily, 3 refills Asked patient to trial off Entresto to determine source of dizziness. Given elevated and labile??BPwill replace??with Irbesartan 150mg nightly. ECHO and labs pending for today, will call with results.?? Future Order Details US CAROTID DUPLEX BILATERAL, Dizziness and giddiness, 03/28/24, ROUTINE, [facility] Radiology Service Area, Dizziness and giddiness, Not Required, Future Order, Electronic, RADIOLOGY Follow Up in Spring with ECHO prior Problem List/Past Medical History Ongoing Anemia of [...] stents???Prostatectomy Medications allopurinol 100 mg oral tablet, 1 tablet(s), Oral, bid amLODIPine 10 mg oral tablet, 1 tablet(s), Oral, daily aspirin 81 mg oral enteric coated tablet, 81 mg= 1 tablet(s), Oral, daily atorvastatin 80 mg oral tablet, 1 tablet(s), Oral, daily cloNIDine 0.1 mg oral tablet, 1 tablet(s), Oral, bid, 2 refills ezetimibe 10 mg oral tablet, 1 tablet(s), Oral, daily irbesartan 150 mg oral tablet, 150 mg= 1 tablet(s), Oral, daily, 3 refills levothyroxine 50 mcg (0.05 mg) oral tablet, 1 tablet(s), Oral, daily before breakfast Metoprolol Tartrate 50 mg oral tablet, 1 tablet(s), Oral, bid minoxidil 2.5 mg oral tablet, 1 tablet(s), Oral, bid pantoprazole 40 mg oral delayed release tablet, 40 mg= 1 tablet(s), Oral, bid before meals Potassium Chloride (Eqv-K-Tab) 10 mEq oral tablet, extended release, 10 mEq= 1 tablet(s), Oral, daily with breakfast sucralfate 1 g/10 mL oral suspension, 1 gm= 10 mL, Oral, qid Allergies NKA Social History Alcohol Never alcohol user, 11/23/2022 Substance Abuse Never drug user, 02/16/2023 Tobacco Never smoker, Smokeless Tobacco use: Never. No Cessation Counseling., 11/23/2022 Family History ?Mother ?Positive ?Family members ?Father ?Positive ?Family members ?Father ?Positive ?Heart attack ?Father ?Positive ?Heart disease ?Mother ?Positive ?Stroke ? Diagnostic Results Lexiscan Indeterminate ECG analysis due to underlying LBBB. 2. Negative stress myocardial perfusion imaging without ischemia or infarct. 3. Please refer to separately reported incidental findings by Radiology. [1] ECHO 02/24 The left ventricular ejection fraction is measured [...] trace tricuspid regurgitation.?? Estimated RVSP 37-42 mmHg. [2] Voice to Text Technology Disclaimer This note may contain text inserted via Quipon or other voice to text assistive technology and demonstrator sewing techniques, variances may occur. [1]??LEXISCAN STRESS MPI; Casper Dai M.D. 03/11/2024 10:30 FINANCIAL SPECIALIST [2]??ECHOCARDIOGRAM COMPLETE STUDY; Zaid Lindquist MD 02/25/2024 12:49 CDT Patient Care team information Care Team Personnel Name: Jada Reynaga MD Position: Physician - Cardiology Member Role: Specialist Physician Address: [address] [facility] [place] [address] [place] Name: Nancy Suresh Specialist Position: Population Health Coordinator Member Role: Population Health Coordinator Name: Shereen Owens NATUROPATHIC DOCTOR Position: AMB NATUROPATHIC DOCTOR/PA Member Role: Nurse Practitioner Address: [address] [place] [address] [place] Name: Khoi Hendrickson Member Role: Urologist Name: Kenia Gregory M.D. Position: Physician - Endocrine Member Role: Range Examiner Address: [address] [place], [place] [id number] [place] Name: Vlad Varner MD Position: Physician - Electrophysiology Member Role: Specialist Physician Address: [address] [place] [address] [place] Name: Jeromy Perez MD Position: Physician - Urology Member Role: Urologist Address: [address] [place] [address] [place] Name: Gab Marquez M.D. Position: Physician - Infectious Disease Member Role: Infectious Disease Address: [address] [facility] [address] [place] [address] [place] Name: Sheron Lamb SPECIALIST II Position: Population Health Coordinator Member Role: Population Health Coordinator Name: Yonas Clements MD Member Role: Specialist Physician Name: Mark Sesay M.D. Position: Physician - Cardiothoracic Surgery Member Role: Specialist Physician Address: [address] [place], [place] [address] Name: Courtney Prado MD Position: Physician - Internal Medicine Member Role: Primary Care Physician Address: [address] [facility] [address] Name: Jessica Corwe NATUROPATHIC DOCTOR Position: AMB NATUROPATHIC DOCTOR/PA Member Role: Nurse Practitioner Address: [address] [facility] [address] [place] [address] [place] Name: Fritz Oreilly MD Position: Physician - Infectious Disease Member Role: Specialist Physician Address: [address] [facility] [address] [place], [place] [phone] [place] Name: Jose Martin Lomas M.D. Position: Physician - Cardiology Member Role: Specialist Physician Address: [facility] [address] [facility] [place] [address] [place] Name: Macy Ansari RN Position: AMB ONC Nurse Navigator Member Role: Nurse Navigator Care Team Related Persons Name: JL BROWER Name: ALLAN VALDES Name: FREDA REYES Insurance Providers Guarantor name: SHANON BROWN Health Plan Information #: 2 Payer: Medicare Supplement Member Number: [id number] Policy Number: NA Health Plan Information #: 1 Payer: Medicare Member Number: [id number] Policy Number: NA
--- OUTSIDE RECORDS SUMMARY | 2024-04-20 01:05 | XMS_ITS | Continuity of Care Document ---
Author Organization [facility] Address [address] [place] [address] Dr Shannon Cheng [address] [place], [place] [id number] Care Team Providers Care Driver Courier Name Role Phone Courtney Prado Primary Care Physician Encounter [facility] Financial Number [phone] Date(s): 11/30/23 - 11/30/23 [facility] [address] Shannon Cheng [address] [place], [place] [id number] Encounter Diagnosis Lower urinary tract symptoms (LUTS)(Discharge Diagnosis) - 11/30/23 History of prostate cancer(Discharge Diagnosis) - 11/30/23 Microhematuria(Discharge Diagnosis) - 11/30/23 Nocturia(Discharge Diagnosis) - 11/30/23 Frequency of urination(Discharge Diagnosis) - 11/30/23 Discharge Disposition: Home or Self Care Attending Physician: Jeromy Perez MD Allergies, Adverse Reactions, Alerts No Known Allergies Assessment and Plan Future Appointments Appointment Date:03/24/2024 02:30:00 PM Scheduled Provider:Courtney Prado MD Location:[facility] Appointment Type:CIMEdel CPE Complete Physical Exam Appointment Date:06/01/2024 11:00:00 AM Scheduled Provider:Jeromy Perez MD Location:[facility] Appointment Type:SL Established Patient 20mins Appointment Date:09/12/2024 10:30:00 AM Scheduled Provider:Kemi Daley MD Location:[facility] Appointment Type:[facility] EP Established Patient Appointment Date:10/10/2024 10:30:00 AM Scheduled Provider: Location[facility] Cardiology Appointment Type:Echocardiogram Complete Study Appointment Date:10/10/2024 11:30:00 AM Scheduled Provider:Jose Martin Lomas M.D. Location:[facility] Appointment Type:CCC EP Established Patient Cesilia Immunizations Given and Recorded Vaccine Date Status Refusal Reason influenza virus vaccine, inactivated 02/16/23 Give n influenza virus vaccine, live, trivalent 05/09/21 Recorded SARS-CoV-2 mRNA (5y-11y) vaccine 05/09/21 Recorded SARS-CoV-2 (COVID-19) mRNA BNT-162b2 vax 1 07/28/20 Recorded SARS-CoV-2 (COVID-19) mRNA BNT-162b2 vax 2 07/03/20 Recorded 1Result Comment: [place] [facility] 2Result Comment: [place] [facility] Medications allopurinol 100 mg oral tablet 100 mg, 1 tablet(s), Oral, bid, 180 tablet(s), 2, 2, Route to Pharmacy Electronically, [facility] #[id number], [id number], 183, cm, 02/16/23 13:04:00 CDT, Height, 110.5, kg, 02/16/23 13:04:00 CDT, Weight Start Date: 05/15/23 Stop Date: 02/09/24 Status: Ordered amLODIPine 10 mg oral tablet See Instructions, 90 tablet(s), 1, TAKE 1 TABLET BY MOUTH EVERY DAY, Route to Pharmacy Electronically, [facility] #[id number], [id number], Instructions Replace RequiredDetails, 183, cm, 09/07/23 11:29:00 CDT, Height, 109.3, kg, 09/07/23 11:29:00 CDT, Weight Start Date: 09/11/23 Status: Ordered Arexvy preservative-free intramuscular injection 60 mcg, 0.5 mL, IntraMuscular, Once, 0.5 mL, 0, 0, Pharmacy to administer, Route to Pharmacy Electronically, [facility] #[id number], [id number], 183, cm, 09/07/23 11:29:00 CDT, Height, 109.3, kg, 09/07/23 11:29:00 CDT, Weight Start Date: 09/07/23 Status: Ordered aspirin 81 mg oral enteric coated tablet 81 mg, 1 tablet(s), Oral, daily, Tab EC, 0 Start Date: 07/05/20 Status: Ordered atorvastatin 80 mg oral tablet 1 tablet(s), Oral, daily, 90 tablet(s), 3, Route to Pharmacy Electronically, [facility] #[id number], [id number], 183, cm, 02/16/23 13:04:00 CDT, Height, 110.5, kg, 02/16/23 13:04:00 CDT, Weight Start Date: 07/13/23 Status: Ordered cloNIDine 0.1 mg oral tablet 1 tablet(s), Oral, bid, 180 tablet(s), 2, 2, Route to Pharmacy Electronically, [facility]#[id number], [id number], 183, cm, 02/16/23 13:04:00 CDT, Height, 110.5, kg, 02/16/23 13:04:00 CDT, Weight Start Date: 08/06/23 Stop Date: 05/02/24 Status: Ordered ezetimibe 10 mg oral tablet 1 tablet(s), Oral, daily, 90 tablet(s), 0, Route to Pharmacy Electronically, [facility] #[id number], [id number], 183, cm, 09/07/23 11:29:00 CDT, Height, 109.3, kg, 09/07/23 11:29:00 CDT, Weight Start Date: 10/09/23 Status: Ordered Gemtesa 75 mg oral tablet 75 mg, 1 tablet(s), Oral, daily, 30 tablet(s), 3, 3, Route to Pharmacy Electronically, [facility] #[id number], [id number], 183, cm, 02/16/23 13:04:00 CDT, Height, 110.5, kg, 02/16/23 13:04:00 CDT, Weight Start Date: 07/20/23 Stop Date: 11/17/23 Status: Ordered levothyroxine 50 mcg (0.05 mg) oral tablet 50 mcg, 1 tablet(s), Oral, daily before breakfast, 90 tablet(s), Tablet(s), 3, 3, Route to PharmacyElectronically, [facility] #[id number], [id number], 183, cm, 09/01/2022 1142, Height, 119, kg, 09/01/2022 1142, Weight Start Date: 11/18/22 Status: Ordered Metoprolol Tartrate 50 mg oral tablet 1 tablet(s), Oral, bid, 180 tablet(s), 3, Route to Pharmacy Electronically, [facility] #[id number], [id number], 182, cm, 10/28/23 9:42:00 CDT, Height, 105.2, kg, 10/28/23 9:42:00 CDT, Weight Start Date: 11/09/23 Status: Ordered pantoprazole 40 mg oral delayed release tablet 40 mg, 1 tablet(s), Oral, bid before meals, 180 tablet(s), Tab EC, 0, 0, Route to Pharmacy Electronically, [facility] #[id number], [id number], 182, cm, 11/24/2022 1326, Height, 106, kg, 11/23/2022 1254, Weight Start Date: 11/25/22 Stop Date: 02/23/23 Status: Ordered solifenacin 5 mg oral tablet 5 mg, 1 tablet(s), Oral, daily, 90 tablet(s), Tablet(s), 2, 2, Route to Pharmacy Electronically, [facility] #[id number], [id number], 183, cm, 02/16/23 13:04:00 CDT, Height, 110.5, kg, 02/16/23 13:04:00 CDT, Weight Start Date: 08/12/23 Stop Date: 05/08/24 Status: Ordered sucralfate 1 g/10 mL oral suspension 1 gm, 10 mL, Oral, qid, 1,200 mL, Susp, 0, 0, Route to Pharmacy Electronically, [id number], [id number], 182, cm, 11/24/2022 1326, Height, 106, kg, [...] Safety Implantable Status Assigning Authority Unknown Unknown [id number] Unknown 03/04/23 Unknown Unknown Active Unkn own Procedure Provider Procedure Date Device Type Site Mitral Valve Annuloplasty Unknown 07/11/20 Unknown Unknown Device Identifier Serial Number Lot or Batch Number Manufacturing Date Expiration Date Distinct Identification Code MRI Safety Implantable Status Assigning Authority [id number] Unknown Unknown 03/13/24 Unknown MR Maria onani [...] Date:05/28/20 End Date: Status:Met Progression:Met Note * Quinn hBatti MA: PERFORM Event Display: Urine Dipstick POC - Text Authored Date: [id number] Urine Dipstick POC Entered On: 11/30/2023 12:25 CDT Performed On: 11/30/2023 12:25 CDT by Quinn Bhatti MA Urine Dipstick Urine Color Urine Dipstick : Yellow Urine Appearance Urine Dipstick : Clear Specific [place] Urine Dipstick : 1.03 pH Urine Dipstick : 5 Leukocytes Urine Dipstick : Negative Nitrite Urine Dipstick : Negative Protein Urine Dipstick : 4+ (>2000 mg/dl) Glucose Urine Dipstick : Negative Ketones Urine Dipstick : Negative Urobilinogen Urine Dipstick : Normal Bilirubin Urine Dipstick : Negative Blood Urine Dipstick : Negative Urine drug screen : No Quinn Bhatti MA - 11/30/2023 12:25 CDT * Quinn Bhatti MA: PERFORM Event Display: POC Bladder Scan - Text Authored Date: [id number] POC Bladder Scan Amb Entered On: 11/30/2023 12:25 CDT Performed On: 11/30/2023 12:25 CDT by Quinn Bhatti MA Bladder Scan Void Prior to Bladder Scan : Yes Bladder Distention : Absent Patient States Need to Void : No Position During Bladder Scan : Supine Bladder Scan Volume : 0 mL Quinn Bhatti MA - 11/30/2023 12:25 CDT * Event Display: Consent/Registration Forms Authored Date: [id number] * Event Display: Consent/Registration Forms * Event Display: Consent/Registration Forms * Vini Núñez [employer]: PERFORM Event Display: ROI_Correspondence Authored Date: [id number] * Event Display: ROI_Correspondence * Event Display: ROI_Correspondence Authored Date: [id number] Urology Outpatient Note * Jeromy Perez MD: PERFORM Event Display: Urology Office/Clinic Note Authored Date: [id number] Patient Information Name:SHANON BROWN Address: [address] [place] [phone] Sex:Male Date of :1945 Emergency Contact:FREDA REYES Location:[facility] Registration Date and Time:11/30/2023 11:44 CDT Primary Care Physician: Courtney Prado MD, Attending Physician: Jeromy Perez MD, Chief Complaint Hx of Prostate Cancer/Frequency History of Present Illness 77-year-old male??presenting for his history of??adenocarcinoma of the prostate, irritative lower urinary tract symptoms, and??microhematuria. ?? He was treated with radical retropubic??prostatectomy??by Dr. Hendrickson at [facility] in March 2020. ??Pathology showed??Eirn 4+5 = 9,??pT3b??adenocarcinoma.?? He was treated with a course??of radiation therapy to the prostate bed and to the pelvic lymph nodes, which he completed in October 2021.?? He had been under the care of Dr. Lazo, andhad been receiving Lupron. ??He??received his??final 3-month dose in February 2023,??thereby completing 2 years of ADT.?? He notes??frequent urination with urgency. ??He also notes a decreased force of stream with??occasional difficulty emptying. ??He gets up about 4 times at night to void.?? He took Gemtesa, and did not notice significant improvement in symptoms. ??He is currently taking Myrbetriq 25 mg daily, is not sure it is helping either. ??Cystoscopy in July??showed??a surgically absent prostate with an adequately patent??bladder neck, small capacity mildly trabeculated bladder??with multiple areas of patchy hemorrhage noted throughout the wall of the bladder. ??Washings were sent for CX bladder, which resulted as low risk. ??He denies new or unusual bony pain or unexplained weightloss.?? He denies dysuria or hematuria.?? In 2020??he developed??endocarditis and he underwent a??mitral valve??repair, along with CABG.?? 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 Vitals and Measurements No qualifying data available. Physical Exam General Examination GENERAL APPEARANCE: well developed and well nourished, in no acute distress.?? EYES: extra ocular muscles intact (EOMI) bilaterally,??sclera clear.?? HEENT: Head - normocephalic/atraumatic NECK/THYROID: trachea midline, no thyromegaly.?? CARDIOVASCULAR: regular rate RESPIRATORY: Regular, unlabored respirations GASTROINTESTINAL: soft, non-tender/non-distended, bowel sounds present.?? NEUROLOGIC EXAM: alert and oriented x 3, CN's II-XII grossly intact, no motor/sensory deficit.?? SKIN: unremarkable.?? EXTREMITIES: no clubbing, cyanosis, or edema.? MUSCULOSKELETAL: unremarkable. ?? Reason For Exam Microhematuria CT UROGRAM EXAM: CT of the abdomen and pelvis without and with intravenous contrast; CT urogram HISTORY:?? Microhematuria COMPARISON: None CONTRAST: 95 cc Omnipaque 350 TECHNIQUE:?? Axial CT images were obtained through the abdomen and pelvis with and without intravenous contrast according to the CT urogram protocol.?? The radiation exposure as measured by the [...] An ultrasound could better characterize if clinically warranted.?? Small left effusion and large paraesophageal hiatal hernia. Assessment/Plan 1.??History of prostate cancer He underwent radical retropubic prostatectomy 1999, and subsequent underwent a course of radiation therapy, as well as 2-year course of ADT. 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 ??Urinalysis today shows no blood 3.??Nocturia He likely still has??RIOS, would benefit from sleep study 4.??Frequency of urination He may increase Myrbetriq to??50 mg daily. ??We also discussed avoidance of lower urine tract irritants and stimulants. Orders: Bladder Scan POC, 11/30/23 12:15:00 CDT Bladder Scan POC, 11/30/23 12:24:00 CDT PSA Total, 04/03/24, Blood, ROUTINE, Routine, Order for Future Visit, Nurse Collect, Print Label, Elevated PSA, Not Required, Hold Until Collected Urinalysis Dipstick POC, 11/30/23 12:15:00 CDT Urinalysis Dipstick POC, 11/30/23 12:24:00 CDT I will plan to have him follow-up??in April with a PSA Follow Up No qualifying data available Problem List/Past Medical History Ongoing Anemia of chronic disease Ascending aorta dilation CAD (coronary artery disease) CKD (chronic kidney disease), stage III Edema of right lower extremity Gall stone GERD with esophagitis Gout History of endocarditis History of prostate cancer History of radiation therapy Hypercalcemia Hyperlipidemia Hypertension Hypothyroidism Large hiatal hernia Medication monitoring encounter Needs flu shot PAF (paroxysmal atrial fibrillation) Paroxysmal A-fib Post herpetic neuralgia Proteinuria S/P CABG x [...] 1 tablet(s), Oral, daily, 3 refills,?NOT TAKING, PATIENT STOPPED MEDICATION levothyroxine 50 mcg (0.05 mg) oral tablet, 50 mcg= 1 tablet(s), Oral, daily before breakfast, 3 refills Metoprolol Tartrate 50 mg oral tablet, 1 tablet(s), Oral, bid pantoprazole 40 mg oral delayed release tablet, 40 mg= 1 tablet(s), Oral, bid before meals solifenacin 5 mg oral tablet, 5 mg= 1 tablet(s), Oral, daily, 2 refills,?NOT TAKING, PATIENT STOPPED MEDICATION sucralfate 1 g/10 mL oral suspension, 1 gm= 10 mL, Oral, qid Allergies NKA Social History Alcohol Never alcohol user, 11/23/2022 Substance Abuse Never drug user, 02/16/2023 Tobacco Never smoker, Smokeless Tobacco use: Never. No Cessation Counseling., 11/23/2022 Family History ?Mother ?Positive ?Family members ?Father ?Positive ?Family members ?Father ?Positive ?Heart attack ?Father ?Positive ?Heart disease ?Mother ?Positive ?Stroke ? Immunizations Vaccine Date Status Commentsinfluenza virus vaccine, inactivated 02/16/2023 Given influenza virus vaccine, live, trivalent 05/09/2021 Recorded SARS-CoV-2 mRNA (5y-11y) vaccine 05/09/2021 Recorded SARS-CoV-2 (COVID-19) mRNA BNT-162b2 vax 07/28/2020 Recorded [place] SARS-CoV-2 (COVID-19) mRNA BNT-162b2 vax 07/03/2020 Recorded [place], [place] Lab Results Test Name Test Result Date/Time CommentsPSA <0.1 ng/mL 10/28/2023 10:39 CDT The concentration was measured by immunoassay on a [employer] analyzer. Results from different assay methods should not be used interchangeably. Urine Appearance Urine Dipstick Clear 11/30/2023 12:25 CDT Urine Color Urine Dipstick Yellow 11/30/2023 12:25 CDT Specific [place] Urine Dipstick 1.03 11/30/2023 12:25 CDT Bilirubin Urine Dipstick Negative 11/30/2023 12:25 CDT pH Urine Dipstick 5 11/30/2023 12:25 CDT Urobilinogen Urine Dipstick Normal 11/30/2023 12:25 CDT Blood Urine Dipstick Negative 11/30/2023 12:25 CDT Glucose Urine Dipstick Negative 11/30/2023 12:25 CDT Ketones Urine Dipstick Negative 11/30/2023 12:25 CDT Protein Urine Dipstick 4+ (>2000 mg/dl) 11/30/2023 12:25 CDT Nitrite Urine Dipstick Negative 11/30/2023 12:25 CDT Leukocytes Urine Dipstick Negative 11/30/2023 12:25 CDT Voice to Text Technology Disclaimer This note may contain text inserted via Dragon or other voice to text assistive technology and cafeteria operator, variances may occur. Outpatient Summary note * Cara Cuellar MR: PERFORM Event Display: Ambulatory Patient Summary Authored Date: [id number] SHANON BROWN :1945 Visit Date:11/30/2023 [facility] Visit Instructions Your Diagnosis Lower urinary tract symptoms (LUTS) Your Care Team Attending Physician - Jeromy Perez MD Primary Care Physician - Courtney Prado MD Procedure History ???Repair of diaphragmatic hiatal hernia (11/23/2022)???UPPER GI ENDOSCOPY PERFORMED (2022)???Biopsy of prostate???Cardiac catheterization???cardiac stents???Prostatectomy Discharge Vitals No qualifying data available. What to do next Scheduled Follow-Up Appointments 2023 2:30 PM CORPORATE COMPLIANCE MANAGER ?? With: Courtney Prado MD Where: [facility] [address] [facility] [address] [place], [place] [id number] Thursday 11:00 AM CORPORATE COMPLIANCE MANAGER ?? With: Jeromy Perez MD Where: [facility] Thursday 10:30 AM CDT ?? With: Kemi Daley MD Where: [facility] [address] Thursday 10:30 AM CDT ?? With: Where: [facility] Thursday 11:30 AM CDT ?? With: Jose Martin Lomas M.D. Where: [facility] [address] [facility] [address] [place], [place] [phone] You Need to Complete the Following PSA Total, 04/03/24, Blood, ROUTINE, Routine, Order for Future Visit, Nurse Collect, Print Label, Elevated PSA, Not Required, Hold Until Collected Referral Information [...] Needs flu shot PAF (paroxysmal atrial fibrillation) Paroxysmal A-fib Post herpetic neuralgia Proteinuria S/P CABG x [...] other voice to text assistive technology and cafeteria operator, variances may occur. Patient Care team information Care Team Personnel Name: Jada Reynaga MD Position: Physician - Cardiology Member Role: Specialist Physician Address: Address: [address] [facility] [address] [place] [address] [place] Name: Nancy Suresh Specialist Position: Population Health Coordinator Member Role: Population Health Coordinator Name: Khoi Hendrickson Role: Urologist Name: Kenia Gregory M.D. Position: Physician - Endocrine Member Role: Senior Policy Advisor Address: Address: [address] [facility] [address] [place], [place] [phone] [place] Name: Vlad Varner MD Position: Physician - Electrophysiology Member Role: Specialist Physician Address: Address: [address] [place] [address] [place] Name: Jeromy Perez MD Position: Physician - Urology Member Role: Urologist Address: Address: [address] [place] [address] [place] Name: Gab Marquez M.D. Position: Physician - Infectious Disease Member Role: Infectious Disease Address: Address: [address] [facility] [address] [place] [address] [place] Name: Sheron Lamb SPECIALIST II Position: Population Health Coordinator Member Role: Population Health Coordinator Name: Yonas Clements MD Member Role: Specialist Physician Name: Mark Sesay M.D. Position: Physician - Cardiothoracic Surgery Member Role: Specialist Physician Address: Address: [address] [facility] [facility] [address] [place] [address]- Name: Courtney Prado MD Position: Physician - Internal Medicine Member Role: Primary Care Physician Address: Address: [address] [facility] [place] [address] [place] Name: Fritz Oreilly MD Position: Physician - Infectious Disease Member Role: Specialist Physician Address: Address: [address] [facility] [address] [place], [place] [phone] [place] Name: Jose Martin Lomas M.D. Position: Physician - Cardiology Member Role: Specialist Physician Address: Address: [facility] [address] [facility] [address] [place] [address] [place] Name: Macy Ansari RN Position: AMB ONC Nurse Navigator Member Role: Nurse Navigator Care Team Related Persons Name: JL BROWER Name: ALLAN VALDES Name: FREDA REYES
--- OUTSIDE RECORDS SUMMARY | 2024-04-20 01:06 | XMS_ITS | Continuity of Care Document ---
Author Organization [facility] Address [address] [place] [id number] Care Team Providers Care Reducer Name Role Phone Emmanuel Broussard Primary Care Physician Kemi Daley Unavailable Vlad Varner Unavailable Jose Martin Lomas Unavailable Mark Sesay Unavailable Fritz Oreilly Unavailable [phone] Jada Reynaga Unavailable Yonas Clements Unavailable Encounter [facility] Financial Number [id number] Date(s): 02/10/22 - 02/10/[address] [id number] Discharge Disposition: Home or Self Care Attending Physician: Kemi Daley MD Referring Physician: Kemi Daley MD Allergies, Adverse Reactions, Alerts No Known Allergies Assessment and Plan Future Appointments Appointment Date:03/06/2022 12:30:00 PM Scheduled Provider:Jose Martin Lomas M.D. Location:[facility] Appointment Type:CCC EP Established Patient Cesilia Appointment Date:04/22/2022 10:15:00 AM Scheduled Provider:Vlad Varner MD Location:[facility] Spec Appointment Type:SLES EP Established Patient Appointment Date:06/09/2022 01:30:00 PM Scheduled Provider:Emmanuel Broussard MD Location:[facility] Appointment Type:CON EP Established Patient Appointment Date:07/10/2022 10:30:00 AM Scheduled Provider:Kemi Daley MD [facility] App[facility] Type:EA EP Established Patient Appointment Date:09/01/2022 11:45:00 AM Scheduled Provider:Jose Martin Lomas M.D. Location:[facility] Appointment Type:[facility] EP Established Patient Cesilia Immunizations Given and Recorded Vaccine Date Status Refusal Reason influenza virus vaccine, live, trivalent 05/09/21 Recorded SARS-CoV-2 mRNA (5y-11y) vaccine 05/09/21 Recorded SARS-CoV-2 (COVID-19) mRNA BNT-162b2 vax 1 07/28/20 Recorded SARS-CoV-2 (COVID-19) mRNA BNT-162b2 vax 2 07/03/20 Recorded 1Result Comment: [place], [place] 2Result Comment: [place] Medications allopurinol 100 mg oral tablet 200 mg, 2 tablet(s), Oral, daily, 180 tablet(s), Tablet(s), 3, 3, Route to Pharmacy Electronically,[facility] #[id number], [id number], 182.88, cm, 05/23/2021 0950, Height, 119, kg, 05/23/2021 0950, Weight Start Date: 05/23/21 Stop Date: 05/18/22 Status: Ordered amLODIPine 10 mg oral tablet 10 mg, 1 tablet(s), Oral, daily, 90 tablet(s), Tablet(s), 3, 3, Route to Pharmacy Electronically, [facility] #[id number], [id number], 182.88, cm, 05/23/2021 0950, Height, 119, kg, 05/23/2021 0950, Weight Start Date: 05/23/21 Status: Ordered aspirin 81 mg oral enteric coated tablet 81 mg, 1 tablet(s), Oral, daily, Tab EC, 0 Start Date: 07/05/20 Status: Ordered atorvastatin 80 mg oral tablet 1 tablet(s), Oral, daily, 90 tablet(s), 2, Route to Pharmacy Electronically, [facility] #[id number], [id number], 182, cm, 01/14/2022 0958, Height, 116.3, kg, 01/14/2022 1002, Weight Start Date: 01/28/22 Status: Ordered ezetimibe 10 mg oral tablet 1 tablet(s), Oral, daily, 30 tablet(s), 7, Route to Pharmacy Electronically, [facility] #[id number], [id number], 182, cm, 01/14/2022 0958, Height, 116.3, kg, 01/14/2022 1002, Weight Start Date: 01/28/22 Status: Ordered levothyroxine 50 mcg (0.05 mg) oral tablet 50 mcg, 1 tablet(s), Oral, daily before breakfast, 90 tablet(s), Tablet(s), 3, 3, Route to PharmacyElectronically, [facility] #[id number], [id number], 182, cm, 12/05/2021 1020, Height, 114, kg, 12/05/2021 1022, Weight Start Date: 12/10/21 Status: Ordered Lupron mg, 0 Start Date: 12/05/21 Status: Ordered Metoprolol Tartrate 50 mg oral tablet 1 tablet(s), Oral, bid, 180 tablet(s), 3, Route to Pharmacy Electronically, [facility] #[id number], [id number], 182, cm, 12/05/2021 1020, Height, 114, kg, [...] Proteinuria Confirmed Active Elevated TSH Confirmed Active Diagnosis Diagnosis Type Effective Dates Health Status Cl inical Service Informant Hypothyroidism 02/10/22 Non-Specified Hypothyroidism 02/10/22 Non-Specified Procedures Procedure Date Related Diagnosis Body Site Status Biopsy of prostate Comple mary Cardiac catheterization C ompleted cardiac stents 1 Complete d Prostatectomy Completed 2018 Results Laboratory List Name Date Free T4 02/10/22 TSH (Highly Sensitive) 02/10/22 Most recent to oldest [Reference Range]: 1 TSH, Highly Sensitive [0.47-4.68 uIU/mL] 7.60 uIU/mL *H* (02/10/22 1:12 PM) Free T4 [0.8-2.2 ng/dL] 1.2 ng/dL (02/10/22 1:12 PM) Social History Social History Type Response [...] Safety Implantable Status Assigning Authority Unknown Unknown [id number] Unknown 03/04/23 Unknown Unknown Active Unkn own Procedure Provider Procedure Date Device Type Site Mitral Valve Annuloplasty Unknown 07/11/20 Unknown Unknown Device Identifier Serial Number Lot or Batch Number Manufacturing Date Expiration Date Distinct Identification Code MRI Safety Implantable Status Assigning Authority [id number] Unknown Unknown 03/13/24 Unknown MR Candace stephenson [...] Date:05/28/20 End Date: Status:Met Progression:Met Note * Denise Tolentino Business Continuity Management Director: PERFORM Event Display: Authorization to Treat Authored Date: * Denise Tolentino Business Continuity Management Director: PERFORM Event Display: Authorization to Treat Authored Date: * Event Display: ROI_Correspondence * Event Display: ROI_Correspondence Authored Date: * Event Display: ROI_Correspondence * Event Display: ROI_Correspondence * Event Display: ROI_Correspondence Authored Date: * Event Display: ROI_Correspondence Authored Date: * Event Display: ROI_Correspondence Patient Care team information Care Team Personnel Name: Jada Reynaga MD Position: Physician - Cardiology Med Service: Split Billing Member Role: Specialist Physician Address: Address: [address] [place] [address] [address] [place] [address] [place] Name: Nancy Suresh Specialist Position: Population Health Coordinator Member Role: Population Health Coordinator Name: Khoi Hendrickson Role: Urologist Name: Vlad Varner MD Position: AMB Physician Member Role: Specialist Physician Address: Address: [address] [place] [address] [address] [place] [address] [place] Name: Gab Marquez M.D. Position: Physician - Infectious Disease Med Service: Med Onc Prior Auth Member Role: Infectious Disease Address: Address: [address] [place] [address] [address] [place] [address] [place] Name: YandeljosephMague POWDER CUTTING OPERATOR Position: AMB POWDER CUTTING OPERATOR/PA Member Role: Nurse Practitioner Address: Address: [address] [place] [address] [place] Name: Yonas Clements MD Position: Physician - Electrophysiology Med Service: [place] Electrophysiology Member Role: Specialist Physician Address: Address: [address] [place] [address] [place] Name: Mark Sesay M.D. Position: AMB Physician Med Service: Split Billing Member Role: Specialist Physician Address: Address: [address] [facility] [address] [place], [place] [address]- Name: Mark Sesay M.D. Position: AMB Physician Med Service: Split Billing Member Role: Specialist Physician Address: Address: [address] [facility] [address] [place], [place] [address]- Name: Darling Santiago POWDER CUTTING OPERATOR Position: AMB POWDER CUTTING OPERATOR/PA Med Service: Vascular Chuck Wagon Driver Role: Nurse Practitioner Address: Address: [address] [facility] [facility] [place] [address] [place] Name: Kemi Daley MD Position: AMB Physician Med Service: Med Onc Prior Auth Member Role: Specialist Physician Address: Address: [address] [facility] [address], [place] [id number] [place] Name: Lashay Newby POWDER CUTTING OPERATOR Position: AMB POWDER CUTTING OPERATOR/PA Med Service: Split Billing Member Role: Nurse Practitioner Address: Address: [address] [facility] [address] [place] [address] [place] Name: Fritz Oreilly MD Position: AMB Physician Member Role: Specialist Physician Address: Address: [address] [facility] [address] [place], [place] [id number] [place] Name: Gloria Soto Position: AMB POWDER CUTTING OPERATOR/PA Med Service: Vascular Chuck Wagon Driver Role: Nurse Practitioner Address: Address: [address] [place] [address] [place] Name: Jose Martin Lomas M.D. Position: Physician - Cardiology Med Service: Split Billing Member Role: Specialist Physician Address: Address: [facility] [address] [facility] [address] [place] [address] [place] Name: Jose Martin Lomas M.D. Position: Physician - Cardiology Med Service: Split Billing Member Role: Specialist Physician Address: Address: [facility] [address] [place] [address] [place] Name: Macy Ansari RN Position: AMB ONC Nurse Navigator Member Role: Nurse Navigator Name: Emmanuel Broussard MD Position: AMB Physician Member Role: Primary Care Physician Address: Address: [address] [place] [address] [address] Name: Kyle Parkinson POWDER CUTTING OPERATOR Position: AMB POWDER CUTTING OPERATOR/PA Med Service: Vascular Chuck Wagon Driver Role: Nurse Practitioner Address: Address: [address] Name: Jennie Pendleton Oil Burner Position: OP Oil Burner Picker Member Role: Oil Burner Care Team Related Persons Name: JL BROWER Name: ALLAN VALDES Name: FREDA REYES
--- OUTSIDE RECORDS SUMMARY | 2024-04-20 01:06 | XMS_ITS | Encounter Summary ---
Author Organization [facility] Address [address] [place] [address] Care Team Providers Care Benefits Administrator Name Role Phone Ronald Lam DO Primary Care Provider [phone] Encounter Details Date Type Department Care Team (Late st Contact Info) Description 05/14/2020 Orders Only [facility] Cardiology [address] [facility] [address] [place] [address] Ramón Clark MD [address] [facility] [address] [place] [address] Social History Tobacco Use Types Packs/Day Years Used Date Smoking Tobacco: Never Smokeless Tobacco: Never Alcohol Use Standard Drinks/Week Comments Not Currently 0 (1 standard drink = 0.6 oz pur e alcohol) Sex and Gender Information Value Date Recorded Sex Assigned at Not on file 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 Gender Identity Not on file Sexual Orientation Not on file documented as of this encounter Plan of Treatment Not on file documented as of this encounter Procedures Procedure Name Priority Date/Time Associated Diagnosis Comments CARDIOLOGY DOCUMENT SCAN Routine 05/14/2020 documented in this encounter Results * SCAN - CARDIOLOGY (05/14/2020) Anatomical Region Laterality Modality Other Ramón Clark MD CV CARDIAC SERVICES PROC EDURES Final Result documented in this encounter Visit Diagnoses Not on filedocumented in this encounter Care Teams Benefits Administrator Relationship Specialty Start Date End Date Ronald Lam DO PCP - General 07/07/18 documented as of this encounter
--- OUTSIDE RECORDS SUMMARY | 2024-04-20 01:06 | XMS_ITS | Continuity of Care Document ---
Author Organization [facility] Address [address] [place] [address] [address] [place], [place] [id number] Care Team Providers Care Career Technical Education Teacher Name Role Phone Courtney Prado Primary Care Physician [phone] Encounter [facility] Financial Number [id number] Date(s): 10/28/23 - 10/28/23 [facility] [address] [place], [place] [id number] Discharge Disposition: Home or Self Care Attending Physician: Jeromy Perez MD Allergies, Adverse Reactions, Alerts No Known Allergies Assessment and Plan Future Appointments Appointment Date:11/30/2023 11:50:00 AM Scheduled Provider:Jeromy Perez MD Location:[facility] Appointment Type:USS Established Patient 20mins Appointment Date:03/24/2024 02:30:00 PM Scheduled Provider:Courtney Prado MD Location:[facility] Appointment Type:[facility] CPE Complete Physical Exam Appointment Date:09/12/2024 10:30:00 AM Scheduled Provider:Kemi Daley MD Location:[facility] Appointment Type:[facility] EP Established Patient Appointment Date:10/10/2024 10:30:00 AM Scheduled Provider: Location:[facility] Cardiology Appointment Type:Echocardiogram Complete Study Appointment Date:10/10/2024 11:30:00 AM Scheduled Provider:Jose Martin Lomas M.D. [facility] Appointment Type:CCC EP Established Patient Cesilia Immunizations Given and Recorded Vaccine Date Status Refusal Reason influenza virus vaccine, inactivated 02/16/23 Give n influenza virus vaccine, live, trivalent 05/09/21 Recorded SARS-CoV-2 mRNA (5y-11y) vaccine 05/09/21 Recorded SARS-CoV-2 (COVID-19) mRNA BNT-162b2 vax 1 07/28/20 Recorded SARS-CoV-2 (COVID-19) mRNA BNT-162b2 vax 2 07/03/20 Recorded 1Result Comment: [place] 2Result Comment: [place] Medications allopurinol 100 mg oral tablet 100 mg, 1 tablet(s), Oral, bid, 180 tablet(s), 2, 2, Route to Pharmacy Electronically, [facility] #[id number], [id number], 183, cm, 02/16/23 13:04:00 CDT, Height, 110.5, kg, 02/16/23 13:04:00 CDT, Weight Start Date: 05/15/23 Stop Date: 02/09/24 Status: Ordered amLODIPine 10 mg oral tablet See Instructions, 90 tablet(s), 1, TAKE 1 TABLET BY MOUTH EVERY DAY, Route to Pharmacy Electronically, [facility] #[id number], [id number], Instructions Replace RequiredDetails, 183, cm, 09/07/23 11:29:00 CDT, Height, 109.3, kg, 09/07/23 11:29:00 CDT, Weight Start Date: 09/11/23 Status: Ordered Arexvy preservative-free intramuscular injection 60 mcg, 0.5 mL, IntraMuscular, Once, 0.5 mL, 0, 0, Pharmacy to administer, Route to Pharmacy Electronically, [facility] #[id number], [id number], 183, cm, 09/07/23 11:29:00 CDT, Height, 109.3, kg, 09/07/23 11:29:00 CDT, Weight Start Date: 09/07/23 Status: Ordered aspirin 81 mg oral enteric coated tablet 81 mg, 1 tablet(s), Oral, daily, Tab EC, 0 Start Date: 07/05/20 Status: Ordered atorvastatin 80 mg oral tablet 1 tablet(s), Oral, daily, 90 tablet(s), 3, Route to Pharmacy Electronically, [facility] #[id number], [id number], 183, cm, 02/16/23 13:04:00 CDT, Height, 110.5, kg, 02/16/23 13:04:00 CDT, Weight Start Date: 07/13/23 Status: Ordered cloNIDine 0.1 mg oral tablet 1 tablet(s), Oral, bid, 180 tablet(s), 2, 2, Route to Pharmacy Electronically, [facility]#[id number], [id number], 183, cm, 02/16/23 13:04:00 CDT, Height, 110.5, kg, 02/16/23 13:04:00 CDT, Weight Start Date: 08/06/23 Stop Date: 05/02/24 Status: Ordered ezetimibe 10 mg oral tablet 1 tablet(s), Oral, daily, 90 tablet(s), 0, Route to Pharmacy Electronically, [facility] #[id number], [id number], 183, cm, 09/07/23 11:29:00 CDT, Height, 109.3, kg, 09/07/23 11:29:00 CDT, Weight Start Date: 10/09/23 Status: Ordered Gemtesa 75 mg oral tablet 75 mg, 1 tablet(s), Oral, daily, 30 tablet(s), 3, 3, Route to Pharmacy Electronically, [facility] #[id number], [id number], 183, cm, 02/16/23 13:04:00 CDT, Height, 110.5, kg, 02/16/23 13:04:00 CDT, Weight Start Date: 07/20/23 Stop Date: 11/17/23 Status: Ordered levothyroxine 50 mcg (0.05 mg) oral tablet 50 mcg, 1 tablet(s), Oral, daily before breakfast, 90 tablet(s), Tablet(s), 3, 3, Route to PharmacyElectronically, [facility] #[id number], [id number], 183, cm, 09/01/2022 1142, Height, 119, kg, 09/01/2022 1142, Weight Start Date: 11/18/22 Status: Ordered Metoprolol Tartrate 50 mg oral tablet 1 tablet(s), Oral, bid, 180 tablet(s), 2, Route to Pharmacy Electronically, [facility][id number], [id number], 182, cm, 11/24/22 13:26:00 CDT, Height, 106, kg, 11/23/22 12:54:00 CDT, Weight Start Date: 12/24/22 Status: Ordered pantoprazole 40 mg oral delayed release tablet 40 mg, 1 tablet(s), Oral, bid before meals, 180 tablet(s), Tab EC, 0, 0, Route to Pharmacy Electronically, [facility] #[id number], [id number], 182, cm, 11/24/2022 1326, Height, 106, kg, 11/23/2022 1254, Weight Start Date: 11/25/22 Stop Date: 02/23/23 Status: Ordered solifenacin 5 mg oral tablet 5 mg, 1 tablet(s), Oral, daily, 90 tablet(s), Tablet(s), 2, 2, Route to Pharmacy Electronically, [facility] #[id number], [id number], 183, cm, 02/16/23 13:04:00 CDT, Height, 110.5, kg, 02/16/23 13:04:00 CDT, Weight Start Date: 08/12/23 Stop Date: 05/08/24 Status: Ordered sucralfate 1 g/10 mL oral suspension 1 gm, 10 mL, Oral, qid, 1,200 mL, Susp, 0, 0, Route to Pharmacy Electronically, [facility] #[id number], [id number], 182, cm, 11/24/2022 1326, Height, 106, kg, [...] Safety Implantable Status Assigning Authority Unknown Unknown [id number] Unknown 03/04/23 Unknown Unknown Active Unkn own Procedure Provider Procedure Date Device Type Site Mitral Valve Annuloplasty Unknown 07/11/20 Unknown Unknown Device Identifier Serial Number Lot or Batch Number Manufacturing Date Expiration Date Distinct Identification Code MRI Safety Implantable Status Assigning Authority [id number] Unknown Unknown 03/13/24 Unknown MR Conditi onal [...] * Event Display: Consent/Registration Forms Authored Date: [id number] * [facility] White Mixing Operator: PERFORM Event Display: ROI_Correspondence Authored Date: [id number] * Event Display: ROI_Correspondence * Event Display: ROI_Correspondence Authored Date: [id number] Patient Care team information Care Team Personnel Name: Jada Reynaga MD Position: Physician - Cardiology Member Role: Specialist Physician Address: Address: [address] [facility] [address] [place] [address] [place] Name: Nancy Suresh Specialist Position: Population Health Coordinator Member Role: Population Health Coordinator Name: Khoi Hendrickson Member Role: Urologist Name: Kenia Gregory M.D. Position: Physician - Endocrine Member Role: Tile Layer Address: Address: [address] [facility] [address] [place], [place] [id number] [place] Name: Vlad Varner MD Position: Physician - Electrophysiology Member Role: Specialist Physician Address: Address: [address] [place] [address] [place] Name: Jeromy Perez MD Position: Physician - Urology Member Role: Urologist Address: Address: [address] [facility] [address] [facility] [address] Name: Gab Marquez M.D. Position: Physician - Infectious Disease Member Role: Infectious Disease Address: Address: [address] [facility] [address] [place] [address] [place] Name: Sheron Lamb SPECIALIST II Position: Population Health Coordinator Member Role: Population Health Coordinator Name: Yonas Clements MD Member Role: Specialist Physician Name: Mark Sesay M.D. Position: Physician - Cardiothoracic Surgery Member Role: Specialist Physician Address: Address: [address] [facility] [address] [place], [place] [address]- Name: Courtney Prado MD Position: Physician - Internal Medicine Member Role: Primary Care Physician Address: Address: [address] [facility] [address] Name: Fritz Oreilly MD Position: Physician - Infectious Disease Member Role: Specialist Physician Address: Address: [address] [place] [address] [address] [place], [place] [id number] [place] Name: Jose Martin Lomas M.D. Position: Physician - Cardiology Member Role: Specialist Physician Address: Address: [facility] [address] [facility] [address] [place] [address] [place] Name: Macy Ansari RN Position: AMB ONC Nurse Navigator Member Role: Nurse Navigator Care Team Related Persons Name: JL BROWER Name: ALLAN VALDES Name: FREDA REYES
--- OUTSIDE RECORDS SUMMARY | 2024-04-20 01:06 | XMS_ITS | Encounter Summary ---
Author Organization [facility] Address [address] [place] [address] Care Team Providers Care Home Energy Rater Name Role Phone Ronald Lam DO Primary Care Provider [phone] Encounter Details Date Type Department Care Team (Late st Contact Info) Description 02/13/2020 Telephone [facility] Cardiology [address] [facility] [address] [place] [address] Hector Desai MD [address] [place] [id number] Social History Tobacco Use Types Packs/Day Years Used Date Smoking Tobacco: Never Smokeless Tobacco: Never Alcohol Use Standard Drinks/Week Comments Not Currently 0 (1 standard drink = 0.6 oz pur e alcohol) Sex and Gender Information Value Date Recorded Sex Assigned at Not on file 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 Script will be filled. Patient notified. * Telephone Encounter - Nisa Dugan - 02/13/2020 12:21 PM CDT Pt has requested a return call to discuss the medication losartan- hydrochlorothiazide 100-25 mg [phone] documented in this encounter Plan of Treatment Not on file documented as of this encounter Visit Diagnoses Not on filedocumented in this encounter Care Teams Home Energy Rater Relationship Specialty Start Date End Date Ronald Lam DO PCP - General 07/07/18 documented as of this encounter
--- OUTSIDE RECORDS SUMMARY | 2024-04-20 01:06 | XMS_ITS | Encounter Summary ---
Author Organization [facility] Address [address] [place] [address] Care Team Providers Care Resource Director Name Role Phone Ronald Lam DO Primary Care Provider [phone] Encounter Details Date Type Department Care Team (Late st Contact Info) Description 02/07/[address] [facility] Cardiology 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 cb [phone] * Telephone Encounter - Anabell Minor RN - 02/07/2020 3:27 PM CDT Pt BP was 190/104 recently at MD appt. He wanted to make a Dr appt. He has a home cuff but is not sure Of the accuracy. Recommended pt come in for BP check with comparison of home machine. Then he can keep track over next couple of days and we can send the numbers to [facility] if elevated. * Telephone Encounter - Nisa Dugan - 02/07/2020 3:00 PM CDT Pt has requested a return call to discuss his BP readings. cb [phone] * Telephone Encounter - Anabell Minor RN - 02/07/2020 2:30 PM CDT Pt asking about type of stent. He has an everolumous drug eluding stent * Telephone Encounter - Nisa Dugan - 02/07/2020 2:04 PM CDT Pt has requested a return call to discuss what type of stents that he had placed.. Pt asking about his stent placement, because the pt is trying to reymundo to surgery for prostate cancer. [phone] documented in this encounter Plan of Treatment Not on file documented as of this encounter Visit Diagnoses Not on filedocumented in this encounter Care Teams Resource Director Relationship Specialty Start Date End Date Ronald Lam DO PCP - General 07/07/18 documented as of this encounter
--- OUTSIDE RECORDS SUMMARY | 2024-04-20 01:06 | XMS_ITS | Encounter Summary ---
Author Organization [facility] Address [address] [place] [address] Care Team Providers Care Consumer Lender Name Role Phone Ronald Lam DO Primary Care Provider [phone] Encounter Details Date Type Department Care Team (Late st Contact Info) Description 05/14/2020 Orders Only [facility] Cardiology [address] [facility] [address] [place] [address] Ramón Clark MD [address] [facility] [address] [place] [address] Social History Tobacco Use Types Packs/Day Years Used Date Smoking Tobacco: Never Smokeless Tobacco: Never Alcohol Use Standard Drinks/Week Comments Not Currently 0 (1 standard drink = 0.6 oz pur e alcohol) Sex and Gender Information Value Date Recorded Sex Assigned at Not on file 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
--- OUTSIDE RECORDS SUMMARY | 2024-04-20 01:06 | XMS_ITS | Encounter Summary ---
Author Organization [facility] Address [address] [place] [address] Care Team Providers Care Roadability Machine Operator Name Role Phone Ronald Lam DO Primary Care Provider [phone] Reason for Visit * Reason Comments Surgical Clearance Encounter Details Date Type Department Care Team (Late st Contact Info) Description 02/13/2020 8:30 AM CDT Office Visit [facility] Cardiology [address] [facility] [address] [place] [address] Jessica Hollins NP [address] [place] [address] Uncontrolled hypertension (Primary Dx); Coronary artery disease involving manzanita coronary artery of manzanita heart without angina pectoris; Preoperative cardiovascular examination Social History Tobacco Use Types Packs/Day Years Used Date Smoking Tobacco: Never Smokeless Tobacco: Never Alcohol Use Standard Drinks/Week Comments Not Currently 0 (1 standard drink = 0.6 oz pur e alcohol) Sex and Gender Information Value Date Recorded Sex Assigned at Not on file Legal Sex Male 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 Gender Identity Not on file Sexual Orientation Not on file documented as of this encounter Last Filed Vital Signs Vital Sign Reading Time Taken Comments Blood Pressure 152/84 02/13/2020 9:14 AM CDT Pulse 88 02/13/2020 9:14 AM CDT Temperature - - Respiratory Rate - - Oxygen Saturation 65% 02/13/2020 8:41 AM CDT Inhaled Oxygen Concentration - - Weight 113.4 kg (250 lb) 02/13/2020 8:41 AM CDT Height - - Body Mass Index 32.98 08/17/2019 1:28 PM CDT documented in this encounter Ordered Prescriptions Prescription Sig Dispense Quantity Refills Last Filled Start Date End Date losartan (COZAAR) 100 mg tabletIndications:Pr eoperative cardiovascular examination Take 1 tablet (100 mg total) by mouth daily Take 1 tablet the morning of surgery in place of losartan/HCTZ 3 tablet 02/13/2020 losartan-hydrochloro thiazide (HYZAAR) 100-25 mg per tabletIndications:Un controlled hypertension Take 1 tablet by mouth daily 30 tablet 11 02/13/2020 1 documented in this encounter Progress Notes * Jessica Hollins NP - 02/13/2020 8:30 AM CDT Images from the original note were not included. [facility] Cardiology [address] [place] [address] Date of Visit: 02/13/2020 Patient ID: Yosef Chapa 1945 Chief Complaint: Yosef Chapa is a 74 y.o. male who is an established patient of Dr. Desai with a history of CAD coming to the office for management of his hypertension prior to prostate surgery. History of Present Illness: Yosef Chapa is a 74 y.o. malewith known CAD, history of remote PCI/stenting of LCX/OM branch; hypertension, CKD stage 3, dyslipidemia, RIOS. ?? Patient was admitted to [facility] on 07/05/2018 with complaints of anginal chest pain with radiation to left arm for last 2-3 weeks. His troponins were negative, EKG showed left bundle branchblock. ??Patient underwent coronary angiogram at [facility] on 07/06/2018 in the setting of unstable angina. ??Coronary angiogram showed patent LCX/om stent; high-grade, subtotal calcific complex stenosis in the mid RCA with the extremity tortuous segment just proximal to the stenosis. ??Patient underwent intervention with balloon angioplasty, however, the stent could not be advanced to the target lesion despite numerous attempts. ??He was initiated on optimal medical treatment includingdual antiplatelet therapy with aspirin and ticagrelor. ??Patient was transferred to [facility] for another attempt on the intervention. On 07/08/2018, patient underwent PCI - orbital atherectomy of mid RCA using CSI 1.25 mm classic crown orbital atherectomy system, followed by balloon angiop lasty and stenting using a 3.0 x 32 mm everolimus eluting stent. His postprocedure hospital course remained uneventful. 09/01/2018-patient states that he had a follow-up appointment with executive producer promos on 08/18/2018 and was found to have elevated heart rate with associated palpitations. He was sent to our clinic and hisEKG showed atrial fibrillation with RVR with underlying left bundle branch block. Patient was initiated on anticoagulation with apixaban, and on diltiazem for heart rate control. On the follow-up visit today, patient states that his chest pain has completely resolved after recent PCI. He also reports resolution of his symptoms of palpitations. He denies dyspnea on exertion for his level of activity. No dizziness, syncope. He reports compliance with current medical regimen, however, he has been concerned about the martinez of apixaban. 12/08/2018-on the follow-up visit today, patient states that he has been doing well from cardiac standpoint. He denies any recurrent angina. He denies palpitations, dizziness or syncope. Patient reports compliance with medical regimen. He has been taking clopidogrel and apixaban. Patient has discontinued aspirin. Patient is concerned about co-pay is for the anticoagulation. 05/18/2019-on the follow-up visit today, patient denies any recurrent angina. He denies dyspnea forhis level of activity. He has occasional palpitations. He reports compliance with current medical regimen including anticoagulation. Denies any bleeding complications. Patient is concerned about co-pay is for the anticoagulation. 02/13/2020 OV with MULTIMEDIA SERVICES MANAGER: he has been under the care of Dr. Moffett for elevated PSA and recent prostate biopsy confirmed prostate cancer. He has decided to pursue treatment by urologist Dr. Khoi Hendrickson in [place]. However, recent blood pressure readings have been very elevated and he was asked toreturn to us for better optimization prior to surgery. Recent home blood pressure readings have varied from systolic 140-170 at various times a day. Patient reports the he has had problems with vertigo periodically over the last few months but otherwise is remaining active by walking 1 mi per day. He also uses a stationary bike 5-10 minutes per day. He has no angina with these symptoms. Records that I personally reviewed on the day of this visit include: (the interpretation is outlined in the HPI above) 05/18/[address] Desai, all subsequent telephone notes in [facility] I have also reviewed: allergies, current medications, past family history, past medical history, past social history, past surgical history and problem list Review of Systems Constitution: Negative for diaphoresis, fever, malaise/fatigue, weight gain and weight loss. HENT: Negative for hearing loss. Eyes: Negative for visual disturbance. Cardiovascular: Negative for chest pain, claudication, dyspnea on exertion, leg swelling, orthopnea, palpitations, paroxysmal nocturnal dyspnea and syncope. Respiratory: Negative for cough, hemoptysis, shortness of breath, snoring and wheezing. Hematologic/Lymphatic: Does not bruise/bleed easily. Skin: Negative for poor wound healing and rash. Musculoskeletal: Negative for joint pain and myalgias. Gastrointestinal: Negative for heartburn, nausea and vomiting. Genitourinary: Negative for hematuria. Neurological: Negative for dizziness, headaches and light-headedness. Psychiatric/Behavioral: Negative for depression. The patient is not nervous/anxious. Vital Signs: BP 152/84 (BP Location: Left arm, Patient Position: Sitting) Pulse 88 Wt 113.4 kg (250 lb) SpO2 (!) 65% BMI 32.98 kg/m?? Physical Exam Constitutional: He is oriented to person, place, and time. He appears well- developed and well-nourished. No distress. HENT: Head: Normocephalic and atraumatic. Nose: Nose normal. Wearing a mask Eyes: Pupils are equal, round, and reactive to light. Conjunctivae and EOM are normal. No scleral icterus. Neck: Normal range of motion. No JVD present. No tracheal deviation present. Cardiovascular: Normal rate, regular rhythm and normal heart sounds. No murmur heard. Pulmonary/Chest: Effort normal and breath sounds normal. No respiratory distress. Abdominal: Soft. Bowel sounds are normal. There is no abdominal tenderness. Musculoskeletal: Normal range of motion. General: No edema. Neurological: He is alert and oriented to person, place, and time. Skin: Skin is warm and dry. Psychiatric: He has a normal mood and affect. No Known Allergies Current Outpatient Medications: ??? allopurinol (ZYLOPRIM) 300 mg tablet, Take 300 mg by mouth daily ., Disp: , Rfl: ??? apixaban (ELIQUIS) 5 mg tablet, Take 1 tablet (5 mg total) by mouth 2 (two) times a day, Disp: 180 tablet, Rfl: 2 ??? atorvastatin (LIPITOR) 80 mg tablet, TAKE 1 TABLET(80 MG) BY MOUTH DAILY, Disp: 90 tablet, Rfl:2 ??? carvedilol (COREG) 25 mg tablet, Take 25 mg by mouth 2 (two) times a day with meals ., Disp: , Rfl: ??? clopidogreL (PLAVIX) 75 mg tablet, TAKE 1 TABLET(75 MG) BY MOUTH DAILY, Disp: 90 tablet, Rfl: 2 ??? DILT-XR 120 mg 24 hr capsule, TAKE 1 CAPSULE(120 MG) BY MOUTH DAILY, Disp: 90 capsule, Rfl: 2 ??? ezetimibe (ZETIA) 10 mg tablet, TAKE 1 TABLET(10 MG) BY MOUTH DAILY, Disp: 90 tablet, Rfl: 3 ??? multivitamin capsule, Take 1 capsule by mouth daily ., Disp: , Rfl: ??? losartan (COZAAR) 100 mg tablet, Take 1 tablet (100 mg total) by mouth daily Take 1 tablet the morning of surgery in place of losartan/HCTZ, Disp: 3 tablet, Rfl: 0 ??? losartan-hydrochlorothiazide (HYZAAR) 100-25 mg per tablet, Take 1 tablet by mouth daily, Disp:30 tablet, Rfl: 11 Lab Results Component Value Date POTASSIUM 3.5 08/17/2019 BUNSER 28 (H) 07/09/2018 CREATININE 1.3 08/17/2019 CHOL 101 08/17/2019 TRIG 125 08/17/2019 LDLCALC 43 08/17/2019 HDL 33 08/17/2019 Assessment: Diagnoses and all orders for this visit: Uncontrolled hypertension (Primary) - losartan-hydrochlorothiazide (HYZAAR) 100-25 mg per tablet; Take 1 tablet by mouth daily Coronary artery disease involving manzanita coronary artery of manzanita heart without angina pectoris Preoperative cardiovascular examination - losartan (COZAAR) 100 mg tablet; Take 1 tablet (100 mg total) by mouth daily Take 1 tablet the morning of surgery in place of losartan/HCTZ Plan/Recommendations: He has longstanding hypertension which is currently uncontrolled. I will up titrate his losartan/HCTZ to 100 mg/25 mg daily. Continue monitoring blood pressure daily at home. I educated him on the proper way to monitor this at home. Return to our office in 7-10 days for repeat blood pressure check so that we can move forward with getting his surgery scheduled. I also gave him a prescription for losartan 100 mg tablets so that he can take losartan 100 mg the morning of surgery without the hydrochlorothiazide component. His coronary artery disease appears stable, and he remains active without symptoms of angina and remains on optimal medical therapy. Therefore no further cardiac testing is indicated prior to this surgery. He should hold clopidogrel seven days before surgery and hold Eliquis 2-3 days before surgery, and resume both medications postoperatively as soon as his surgeon is comfortable. ALICIA Werner- Nurse Practitioner with [facility] This note is dictated and transcribed using [employer] Direct Software. Cow Washer variancesmay occur. Despite proofreading, typographical errors may occur. documented in this encounter Plan of Treatment Not on file documented as of this encounter Visit Diagnoses Diagnosis Uncontrolled hypertension- Primary Coronary artery disease involving manzanita coronary artery of manzanita heart without angina pectoris Preoperative cardiovascular examination Pre-operative cardiovascular examination documented in this encounter Discontinued Medications Medication Sig Discontinue Reason Start Date End Da te losartan-hydroCHLOROthia zide (HYZAAR) 100-12.5 mg per tablet Take 1 tablet by mouth daily . Dose adjustment 02/13/2020 documented as of this encounter Care Teams Roadability Machine Operator Relationship Specialty Start Date End Date Ronald Lam DO PCP - General 07/07/18 documented as of this encounter
--- OUTSIDE RECORDS SUMMARY | 2024-04-20 01:06 | XMS_ITS | Encounter Summary ---
Author Organization [facility] Address [address] [place] [address] Care Team Providers Care Vegetable Cutter Name Role Phone Ronald Lam DO Primary Care Provider [phone] Encounter Details Date Type Department Care Team (Late st Contact Info) Description 02/08/2020 9:45 AM CDT Office Visit [facility] Cardiology [address] [place] [address] Essential hypertension (Primary Dx) Social History Tobacco Use Types Packs/Day Years Used Date Smoking Tobacco: Never Smokeless Tobacco: Never Alcohol Use Standard Drinks/Week Comments Not Currently 0 (1 standard drink = 0.6 oz pur e alcohol) Sex and Gender Information Value Date Recorded Sex Assigned at Not on file 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 BP 154/84, left arm, sitting. HR 68 BPM. SpO2 96%. Patient has been checking his BP on his watch. Reading today at visit was 123/75, left arm, sitting. Advised patient to obtain a BP machine and check his BP one hour after taking his medications in the am. Patient voiced understanding. documented in this encounter Plan of Treatment Not on file documented as of this encounter Visit Diagnoses Diagnosis Essential hypertension- Primary Unspecified essential hypertension documented in this encounter Care Teams Vegetable Cutter Relationship Specialty Start Date End Date Ronald Lam DO PCP - General 07/07/18 documented as of this encounter
--- OUTSIDE RECORDS SUMMARY | 2024-04-20 01:06 | XMS_ITS | Encounter Summary ---
Author Organization [facility] Address [address] [place] [address] Care Team Providers Care Business Team Leader Name Role Phone Ronald Lam DO Primary Care Provider [phone] Encounter Details Date Type Department Care Team (Late st Contact Info) Description 05/14/2020 Telephone [facility] Cardiology [address] [facility] [address] [place] [address] Hector Desai MD [address] [place] [id number] Social History Tobacco Use Types Packs/Day Years Used Date Smoking Tobacco: Never Smokeless Tobacco: Never Alcohol Use Standard Drinks/Week Comments Not Currently 0 (1 standard drink = 0.6 oz pur e alcohol) Sex and Gender Information Value Date Recorded Sex Assigned at Not on file Legal Sex Male 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 yes he should stop as e put him on anticoagulation. He should be on aspirin also. This is to reduce his bleeding risk. Message relayed to pt's daughter. Voiced understanding. ETING ASSISTANT MANAGER * Telephone Encounter - Anabell Minor RN - 05/16/2020 8:58 AM CST spokew with daughter Amber. DC paperwork says to DC plavix. Asking if it should be dc'd. Do not see that indicated on the DC summary or on AD hospital consult. Will check with AD. ETING ASSISTANT MANAGER * Telephone Encounter - Nisa Dugan - 05/16/2020 8:10 AM CST Pt daughter Amber has requested a return call to discuss the pt medications, pt was discharged from on 05-15-2020 cb [phone] ETING ASSISTANT MANAGER * Telephone Encounter - Anabell Minor RN - 05/15/2020 1:53 PM CST Spoke with daughter, She was calling about scheduling a f/u after her fathers DC from today. Pt already has an appt with [facility] on 05/23. Will keep that appt. ETING ASSISTANT MANAGER * Telephone Encounter - Indira Krishnamurthy - 05/15/2020 1:28 PM CST Pt's daughter called back to speak with SAUMYA Hung. ETING ASSISTANT MANAGER * Telephone Encounter - Anabell Minor RN - 05/14/2020 4:04 PM CST Lm on vm that we do not have the EKG from [place] ETING ASSISTANT MANAGER * Telephone Encounter - Nisa Dugan - 05/14/2020 3:31 PM CST Pt daughter called asking if Anabell received the faxed EKG results from [place]. cb [phone] ETING ASSISTANT MANAGER * Telephone Encounter - Anabell Minor, RN - 05/14/2020 9:35 AM CST Spoke with daughter and she is aware pt will be seen by MJF or AD. Message sent to both MDs requesting whoever sees the pt to call the daughter with an update. ETING ASSISTANT MANAGER * Telephone Encounter - Indira Krishnamurthy - 05/14/2020 9:24 AM CST Pt's daughter called to speak with Anabell KERNS to report pt has been admitted at [facility] room 211. Pt's daughter would like to know when will Dr. Desai go see him. ETING ASSISTANT MANAGER documented in this encounter Plan of Treatment Not on file documented as of this encounter Visit Diagnoses Not on filedocumented in this encounter Care Teams Business Team Leader Relationship Specialty Start Date End Date Ronald Lam DO PCP - General 07/07/18 documented as of this encounter
--- OUTSIDE RECORDS SUMMARY | 2024-04-20 01:06 | XMS_ITS | Encounter Summary ---
Author Organization [facility] Address [address] [place] [address] Care Team Providers Care Belt Fixer Name Role Phone Ronald Lam DO Primary Care Provider [phone] Encounter Details Date Type Department Care Team (Late st Contact Info) Description 03/13/2020 Telephone [facility] Cardiology [address] [place] [address] Hector Desai MD [address] [place] [id number] Social History Tobacco Use Types Packs/Day Years Used Date Smoking Tobacco: Never Smokeless Tobacco: Never Alcohol Use Standard Drinks/Week Comments Not Currently 0 (1 standard drink = 0.6 oz pur e alcohol) Sex and Gender Information Value Date Recorded Sex Assigned at Not on file Legal Sex Male 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 She was unsure who could remove his maradiaga catheter r/t his surgery this week in [place]. Advised to call patients PCP to schedule Maradiaga cath removal. PCP number given to daughter. HT TRAINER * Telephone Encounter - Indira Krishnamurthy - 03/13/2020 2:07 PM CST Pt's daughter called to discuss getting pt cath remove at [facility]. HT TRAINER documented in this encounter Plan of Treatment Not on file documented as of this encounter Visit Diagnoses Not on filedocumented in this encounter Care Teams Belt Fixer Relationship Specialty Start Date End Date Ronald Lam DO PCP - General 07/07/18 documented as of this encounter
--- OUTSIDE RECORDS SUMMARY | 2024-04-20 01:06 | XMS_ITS | Encounter Summary ---
Author Organization [facility] Address [address] [place] [address] Care Team Providers Care Wastewater Treatment Plant Operator Name Role Phone Ronald Lam DO Primary Care Provider [phone] Encounter Details Date Type Department Care Team (Late st Contact Info) Description 05/11/2020 Telephone [facility] Cardiology [address] [place] [address] Hector Desai MD [address] [id number] Social History Tobacco Use Types Packs/Day Years Used Date Smoking Tobacco: Never Smokeless Tobacco: Never Alcohol Use Standard Drinks/Week Comments Not Currently 0 (1 standard drink = 0.6 oz pur e alcohol) Sex and Gender Information Value Date Recorded Sex Assigned at Not on file Legal Sex Male 12:20 AM MANAGER SEARCH Gender Identity Not on file Sexual Orientation Not on file documented as of this encounter Ordered Prescriptions Prescription Sig Dispense Quantity Refills Last Filled Start Date End Date losartan-hydroCHLOR Othiazide (HYZAAR) 100-12.5 mg per tablet Take 1 tablet by mouth daily 30 tablet 11 05/11/2020 documented in this encounter Miscellaneous Notes * Telephone Encounter - Anabell June RN - 05/11/2020 12:59 PM CST ER [facility]choa notifed pt sent to ER GER SEARCH * Telephone Encounter - Anabell June RN - 05/11/2020 12:54 PM CST daughter encouraged to take pt to ER for hypotension of unknown reason/ illness. GER SEARCH * Telephone Encounter - Nisa Dugan - 05/11/2020 12:42 PM CST Pt daughter Ayleen requesting a return call to discuss the pt low B/P reading 83/47 cb [phone] GER SEARCH * Addendum Note - Anabell June RN - 05/11/2020 11:27 AM CSTAddended by: ANABELL JUNE on: 05/11/2020 11:27 AM Modules accepted: Orders GER SEARCH * Addendum Note - Anabell June RN - 05/11/2020 11:25 AM CSTAddended by: ANABELL JUNE on: 05/11/2020 11:25 AM Modules accepted: Orders GER SEARCH * Telephone Encounter - Anabell June RN - 05/11/2020 11:15 AM CST Spoke with daughter and reviewed message below. Will send in new rx lower dose GER SEARCH * Telephone Encounter - Anabell June RN - 05/11/2020 10:48 AM CST Lm on vm for daughter Ayleen with message per CT GER SEARCH * Telephone Encounter - Jessica Hollins NP - 05/11/2020 10:26 AM MANAGER SEARCH I agree that covid should be ruled out first. I also agree these BP's aren't low enough to cause him to feel so poorly, but it is a big difference compared to where he was running before his recent prostate surgery (he was systolic 150's- 170's, and I suspected some of that elevation was due to anxiety). If he is covid negative, the first thing I would recommend is putting him back on his previousdose of losartan/hctz 100/12.5 mg. Thanks. GER SEARCH * Telephone Encounter - Anabell June RN - 05/11/2020 9:41 AM CST Spoke with daughter Ayleen. She is concerned bc pt is extremely fatigue,CHAIREZ, dizzy,nausea, poor appetite, low grade fever- 99.9. She called Dr Lam who ordered a Covid test. States pt could hardly walk up the steps. She is also concerened about his BP being very low for him causing his dizziness. 122/98, 103/66, 112/88. HR 60-90 at different times. We discussed that his BP was not likely the cause of his symptoms. The 103 was a little on the low side but the other numbers were unlikely the cause of his symptoms. Could be COVID, FLU or another virus. Attempted to reach pt to discuss if he felt like he was possibly in afib but unable to reach pt. ( pt did have post op prostate removal afib - resolved) Encouraged daughter to reach out to PCP for appt/ assistance Please advise GER SEARCH * Telephone Encounter - Nisa Dugan - 05/11/2020 8:22 AM CST Pt daughter Ayleen has requested a return call to discuss the pt low B/P 103/66 cb [phone] GER SEARCH documented in this encounter Plan of Treatment Not on file documented as of this encounter Visit Diagnoses Diagnosis Uncontrolled hypertension documented in this encounter Discontinued Medications Medication Sig Discontinue Reason Start Date End Da te losartan-hydrochlorothiaz ebony (HYZAAR) 100-25 mg per tabletIndications:Uncontr olled hypertension Take 1 tablet by mouth daily 02/13/2020 05/11/2020 documented as of this encounter Care Teams Wastewater Treatment Plant Operator Relationship Specialty Start Date End Date Ronald Lam DO PCP - General 07/07/18 documented as of this encounter
--- OUTSIDE RECORDS SUMMARY | 2024-04-20 01:06 | XMS_ITS | Clinical Summary ---
Author Organization [facility] [address] Address [address] [place] [address] Care Team Providers Care Acid Mixer Name Role Phone Ronald Lam DO Primary Care Provider [phone] Allergies No known active allergies Medications multivitamin capsule Take 1 capsule by mouth daily . Active allopurinol (ZYLOPRIM) 300 mg tablet Take 300 mg by mouth daily . Active carvedilol (COREG) 25 mg tablet Take 25 mg by mouth 2 (two) times a day with meals . Active losartan (COZAAR) 100 mg tabletIndications:P reoperative cardiovascular examination Take 1 tablet (100 mg total) by mouth daily Take 1 tablet the morning of surgery in place of losartan/HCT Z 3 tablet 0 Active atorvastatin (LIPITOR) 80 mg tablet TAKE 1 TABLET(80 MG) BY MOUTH DAILY 90 tablet 1 0 Active losartan-hydroCHLOR Othiazide (HYZAAR) 100-12.5 mg per tablet Take 1 tablet by mouth daily 30 tablet 11 1 Active aspirin 81 mg enteric coated tablet Take 81 mg by mouth daily Active magnesium oxide (MAG-OX) 400 mg (241.3 mg elemental magnesium) tabletIndications:h ypomagnesemia Take 400 mg by mouth daily Active Eliquis 5 mg tablet TAKE 1 TABLET(5 MG) BY MOUTH TWICE DAILY 180 tablet 1 Active dilTIAZem CD/XR/XT (dilTIAZem CD) 120 mg 24 hr capsule TAKE 1 CAPSULE BY MOUTH DAILY 90 capsule 1 Active ezetimibe (ZETIA) 10 mg tablet TAKE 1 TABLET BY MOUTH DAILY 30 tablet 1 Active Active Problems Problem Noted Date Diagnosed Date Post percutaneous transluminal coronary angiopla sty 11/15/2013 Overview (08/07/2016): STATUS-POST PTCA Multiple-type hyperlipidemia 09/17/2013 Overview (08/08/2016): MIXED HYPERLIPIDEMIA Coronary arteriosclerosis in [place] artery 09/17 Overview (08/08/2016): CRNRY ATHRSCL NATVE VSSL Hypertension 09/17/2013 Overview (08/08/2016): HYPERTENSION NOS Status post angioplasty with stent Coronary artery disease invo lving [place] coronary artery of [place] heart with unstable angina pectoris Surgical History Surgery Date Site/Laterality Comments CORONARY ANGIOPLASTY HERNIA REPAIR RADICAL PROSTATECTOMY 03/04/2020 - 04/02/2020 Medical History Medical History Date Comments Hypertension Rheumatic fever Sleep apnea Gout Chronic kidney disease Family History Medical History Relation Name Comments Heart attack Father Hypertension Father Hypertension Mother Stroke Mother No Known Problems Sister Relation Name Status Comments Father (Age 56) Mother (Age 76) Sister Alive Social History Tobacco Use Types Packs/Day Years Used Date Smoking Tobacco: Never Smokeless Tobacco: Never Tobacco Cessation:Counseling Given: Yes Alcohol Use Standard Drinks/Week Comments Not Currently 0 (1 standard drink = 0.6 oz pur e alcohol) Sex and Gender Information Value Date Recorded Sex Assigned at Not on file Legal Sex Male 12:20 AM CONSTRUCTION EXECUTIVE Gender Identity Not on file Sexual Orientation Not on file Obstetrics History Last Filed Vital Signs Vital Sign Reading Time Taken Comments Blood Pressure 108/61 05/18/2020 12:34 PM CONSTRUCTION EXECUTIVE Pulse 72 05/18/2020 12:34 PM CONSTRUCTION EXECUTIVE Temperature 36.3 ??C (97.4 ??F) 08/17/2019 1:28 PM CD T Respiratory Rate 16 07/09/2018 3:43 PM CONSTRUCTION EXECUTIVE Oxygen Saturation 65% 02/13/2020 8:41 AM CDT Inhaled Oxygen Concentration - - Weight 111.1 kg (245 lb) 05/18/2020 12:34 PM CONSTRUCTION EXECUTIVE Height 185.4 cm (6' 1 ) 05/18/2020 12:34 PM CONSTRUCTION EXECUTIVE Body Mass Index 32.32 05/18/2020 12:34 PM CONSTRUCTION EXECUTIVE Plan of Treatment Not on file Medical Devices Implanted Type Area Printed Products Assembler Device Identifier Shelf Expiration Date Model / Serial / Lot Mentor Me [id number] Synergy 3mm 32mm 144cm Radiopaque 1 Access Port Inflation Lumen - [id number] Implanted:Qty: 1 on 07/08/2018 by Hector Desai MD at [facility] [employer] 01/12/2020 [id number] / / [id number] [facility] [id number] Angio-Seal Vip Bondek-Plus 6fr .035in 70cm Hemostatic Latex Free - [id number] Implanted:Qty: 1 on 07/08/2018 by Hector Desai MD at [facility] [employer] [facility] 03/03/2019 [id number] / / [id number] Insurance MEDICARE [facility] MEDICARE [facility] Advance Directives For more information, please contact: [phone] * Full Code (Latest Code Status on File) Date Activated Date Inactivated Comments 07/07/2018 11:10 PM 07/09/2018 8:55 PM Care Teams Acid Mixer Relationship Specialty Start Date End Date Ronald Lam DO PCP - General 07/07/18
--- OUTSIDE RECORDS SUMMARY | 2024-04-20 01:06 | XMS_ITS | Encounter Summary ---
Author Organization [facility] Address [address] [place] [address] Care Team Providers Care Powerhouse Helper Name Role Phone Ronald Lam DO Primary Care Provider [phone] Encounter Details Date Type Department Care Team (Late st Contact Info) Description 05/14/2020 Orders Only [facility] Cardiology [address] [facility] [facility] [address] [place] [address] Ramón Clark MD [address] [facility] [address] [place] [address] Social History Tobacco Use Types Packs/Day Years Used Date Smoking Tobacco: Never Smokeless Tobacco: Never Alcohol Use Standard Drinks/Week Comments Not Currently 0 (1 standard drink = 0.6 oz pur e alcohol) Sex and Gender Information Value Date Recorded Sex Assigned at Not on file Legal Sex Male 12:20 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
--- OUTSIDE RECORDS SUMMARY | 2024-04-20 01:06 | XMS_ITS | Encounter Summary ---
Author Organization [facility] Address [address] [place] [address] Care Team Providers Care Rum Processing Operator Name Role Phone Ronald Lam DO Primary Care Provider [phone] Encounter Details Date Type Department Care Team (Late st Contact Info) Description 05/22/2020 Telephone [facility] Cardiology [address] [facility] [address] [facility] [address] [place] [address] Ramón Clark MD [address] [facility] [address] [place], [place] [id number] Social History Tobacco Use Types Packs/Day Years Used Date Smoking Tobacco: Never Smokeless Tobacco: Never Alcohol Use Standard Drinks/Week Comments Not Currently 0 (1 standard drink = 0.6 oz pur e alcohol) Sex and Gender Information Value Date Recorded Sex Assigned at Not on file Legal Sex Male 12:20 AM DISC INSPECTOR Gender Identity Not on file Sexual Orientation Not on file documented as of this encounter Miscellaneous Notes * Telephone Encounter - Lillian Rolle RN - 05/23/2020 11:07 AM DISC INSPECTOR Spoke at length with pt dgt regarding status of pt at [facility]. 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 Pt is having a SAMUEL this afternoon. Advised dgt to wait for those results to further assess the situation. Dgt asked about transferring pt to [facility] so Dr. Desai or Dr. Clark could care for him and to give a second opinion. Informed her that that would besomething she would have to discuss with [facility]. Dgt appreciated the time and will call back with any other concerns. INSPECTOR * Telephone Encounter - Nisa Dugan - 05/23/2020 8:58 AM CST Pt daughter Ayleen has requested a return call to discuss the pt current medical condition, pt is now an INPT at [facility]. cb [phone] INSPECTOR * Telephone Encounter - Heaven Barksdale - 05/22/2020 3:40 PM CST Ayleen called with updated on her father and would like terri to call her back at [phone] INSPECTOR documented in this encounter Plan of Treatment Not on file documented as of this encounter Visit Diagnoses Not on filedocumented in this encounter Care Teams Rum Processing Operator Relationship Specialty Start Date End Date Ronald Lam DO PCP - General 07/07/18 documented as of this encounter
--- OUTSIDE RECORDS SUMMARY | 2024-04-20 01:06 | XMS_ITS | Encounter Summary ---
Author Organization [facility] Address [address] [place] [address] Care Team Providers Care Cord Cutter Name Role Phone Ronald Lam DO Primary Care Provider Encounter Details Date Type Department Care Team (Late st Contact Info) Description 05/22/[address] [facility] Cardiology [address] [facility] [address] [facility] [address] [place] [address] Ramón Clark MD [address] [facility] [address] [place] [address] Social History Tobacco Use Types Packs/Day Years Used Date Smoking Tobacco: Never Smokeless Tobacco: Never Alcohol Use Standard Drinks/Week Comments Not Currently 0 (1 standard drink = 0.6 oz pur e alcohol) Sex and Gender Information Value Date Recorded Sex Assigned at Not on file Legal Sex Male 12:20 AM TELESERVICES REPRESENTATIVE Gender Identity Not on file Sexual Orientation Not on file documented as of this encounter Plan of Treatment Not on file documented as of this encounter Visit Diagnoses Not on filedocumented in this encounter Care Teams Cord Cutter Relationship Specialty Start Date End Date Ronald Lam DO PCP - General 07/07/18 documented as of this encounter
--- OUTSIDE RECORDS SUMMARY | 2024-04-20 01:06 | XMS_ITS | Encounter Summary ---
Author Organization [facility] Address [address] [place] [address] Care Team Providers Care Textile Technical Officer Name Role Phone Ronald Lam DO Primary Care Provider [phone] Encounter Details Date Type Department Care Team (Late st Contact Info) Description 05/15/2020 Orders Only [facility] Cardiology [address] [facility] [address] [place] [address] Ramón Clark MD [address] [facility] [address] [place] [address] Social History Tobacco Use Types Packs/Day Years Used Date Smoking Tobacco: Never Smokeless Tobacco: Never Alcohol Use Standard Drinks/Week Comments Not Currently 0 (1 standard drink = 0.6 oz pur e alcohol) Sex and Gender Information Value Date Recorded Sex Assigned at Not on file Legal Sex Male 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 Gender Identity Not on file Sexual Orientation Not on file documented as of this encounter Plan of Treatment Not on file documented as of this encounter Procedures Procedure Name Priority Date/Time Associated Diagnosis Comments CARDIOLOGY DOCUMENT SCAN Routine 05/15/2020 documented in this encounter Results * SCAN - CARDIOLOGY (05/15/2020) Anatomical Region Laterality Modality Other Ramón Clark MD CV CARDIAC SERVICES PROC EDURES Final Result documented in this encounter Visit Diagnoses Not on filedocumented in this encounter Care Teams Textile Technical Officer Relationship Specialty Start Date End Date Ronald Lam DO PCP - General 07/07/18 documented as of this encounter
--- OUTSIDE RECORDS SUMMARY | 2024-04-20 01:06 | XMS_ITS | Encounter Summary ---
Author Organization [facility] Address [address] [place] [address] Care Team Providers Care Associate Professor Of Musicology Name Role Phone Ronald Lam DO Primary Care Provider [phone] Reason for Visit * Reason Comments Hypertension BP check only visit Encounter Details Date Type Department Care Team (Late st Contact Info) Description 02/20/2020 9:45 AM CDT Office Visit [facility] Cardiology [address] [facility] [address] [facility] [address] [place] [address] Uncontrolled hypertension (Primary Dx) Social History Tobacco Use Types Packs/Day Years Used Date Smoking Tobacco: Never Smokeless Tobacco: Never Alcohol Use Standard Drinks/Week Comments Not Currently 0 (1 standard drink = 0.6 oz pur e alcohol) Sex and Gender Information Value Date Recorded Sex Assigned at Not on file Legal Sex Male 12:20 AM COMMUNICATIONS BILLING ANALYST Gender Identity Not on file Sexual Orientation Not on file documented as of this encounter Progress Notes * Elaine Trejo MA - 02/20/2020 9:45 AM CDT Patient here for BP check d/t elevated BP readings at home. BP 139/89 this am at home. BP 140//82, left arm, sitting. HR 56 BPM. SpO2 97% on room air. Patient advised to keep medications the same andawait further instructions. Will forward to ALICIA Werner for review. * Jessica Hollins NP - 02/20/2020 9:45 AM CDT Looks so much better! Continue carvedilol at 25 mg bid and losartan/HCTZ at 100/25 mg daily. The morning of surgery he should take carvedilol 25 mg and the plain losartan 100 mg that I gave him a prescription for. I will send the clearance letter to his surgeon. Thank you. * Elaine Trejo MA - 02/20/2020 9:45 AM CDT The patient voiced these instructions at the office visit today. documented in this encounter Plan of Treatment Not on file documented as of this encounter Visit Diagnoses Diagnosis Uncontrolled hypertension- Primary documented in this encounter Care Teams Associate Professor Of Musicology Relationship Specialty Start Date End Date Ronald Lam DO PCP - General 07/07/18 documented as of this encounter
--- OUTSIDE RECORDS SUMMARY | 2024-04-20 01:06 | XMS_ITS | Encounter Summary ---
Author Organization [facility] Address [address] [place] [address] Care Team Providers Care Shop Tailor Name Role Phone Ronald Lam DO Primary Care Provider [phone] Encounter Details Date Type Department Care Team (Late st Contact Info) Description 07/13/2020 10:30 AM DOCTOR OF PODIATRY Lab [address] [address] Social History Tobacco Use Types Packs/Day Years Used Date Smoking Tobacco: Never Smokeless Tobacco: Never Alcohol Use Standard Drinks/Week Comments Not Currently 0 (1 standard drink = 0.6 oz pur e alcohol) Sex and Gender Information Value Date Recorded Sex Assigned at Not on file Legal Sex Male 12:20 AM DOCTOR OF PODIATRY Gender Identity Not on file Sexual Orientation Not on file documented as of this encounter Plan of Treatment Not on file documented as of this encounter Procedures Procedure Name Priority Date/Time Associated Diagnosis Comments HIT ANTIBODIES W/REFLEX TO SEROTONIN RELEASE ASSAY (JOLENE) STAT 07/13/2020 7:30 AM DOCTOR OF PODIATRY documented in this encounter Results * HIT Antibodies with Reflex to Serotonin Release Assay (JOLENE) (07/13/2020 7:30 AM DOCTOR OF PODIATRY) HIT antibodies Negative Negative [facility] HIT Ab EMILIANO Units 0.00 0.00 - 0.99 units/mL [facility] Comment: A positive HIT Ab (heparin PF4 antibody EMILIANO test) is extremely sensitive for heparin-induced thrombocytopenia (HIT), but not specific, since many patients exposed to heparin have positive antibody tests without developing HIT. Higher HIT Ab EMILIANO Units are associated with a higher likelihood of a positive serotonin release assay (JOLENE) and a clinical course consistent with HIT. The 4T scoring system is a useful tool for pretest probability of HIT (Cuker et al, Blood 2012;120:4160). Both laboratory testing and clinical risk evaluation should be considered in determining an individual patient? s risk of HIT. Blood specimen (specimen) 07/13/2020 7:30 AM DOCTOR OF PODIATRY 07/13/2020 10:33 AM DOCTOR OF PODIATRY us Notinfile Unknown LAB BLOOD ORDERABLES Final Res ult [facility] [address] [facility] Department [place] [address] documented in this encounter Visit Diagnoses Not on filedocumented in this encounter Care Teams Shop Tailor Relationship Specialty Start Date End Date Ronald Lam DO PCP - General 07/07/18 documented as of this encounter
--- OUTSIDE RECORDS SUMMARY | 2024-04-20 01:06 | XMS_ITS | Encounter Summary ---
Author Organization [facility] Address [address] [place] [address] Care Team Providers Care Endo Tech Name Role Phone Ronald Lam DO Primary Care Provider [phone] Encounter Details Date Type Department Care Team (Late st Contact Info) Description 02/28/2020 Telephone [facility] Cardiology [address] [facility] [address] [place] [address] Hector Desai MD [address] [id number] Social History Tobacco Use Types Packs/Day Years Used Date Smoking Tobacco: Never Smokeless Tobacco: Never Alcohol Use Standard Drinks/Week Comments Not Currently 0 (1 standard drink = 0.6 oz pur e alcohol) Sex and Gender Information Value Date Recorded Sex Assigned at Not on file Legal Sex Male 12:20 AM 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 He verbalized understanding. * Telephone Encounter - Jessica Hollins NP - 02/28/2020 3:26 PM CDT He can increase his evening dose of carvedilol to 37.5 mg ( 1.5 tabs of 25 mg tab) and keep everything else the same. I'm concerned that his frequent BP checking is increasing anxiety and making BP go up more. I recommend he stop checking it. It is well enough controlled for him to move forward with his prostate surgery, which should be his main focus right now. * Telephone Encounter - Anabell Minor RN - 02/28/2020 11:13 AM CDT Pt called with concerns of his BP still elevated , especially in the evening. Average 188/94 in theevening, am average 145/85. He is taking carvedilol 25 mg BID and losartan HCTZ 100/25 daily. The pm BP is taken 1 hour after his pm dose of carvedilol. Please advise * Telephone Encounter - Indira Krishnamurthy - 02/28/2020 10:54 AM CDT Pt called to discuss bp readings. documented in this encounter Plan of Treatment Not on file documented as of this encounter Visit Diagnoses Not on filedocumented in this encounter Care Teams Endo Tech Relationship Specialty Start Date End Date Ronald Lam DO PCP - General 07/07/18 documented as of this encounter
--- OUTSIDE RECORDS SUMMARY | 2024-04-20 01:06 | XMS_ITS | Encounter Summary ---
Author Organization [facility] Address [address] [place] [address] Phone Care Team Providers Care Department Assistant Name Role Phone Ronald Lam DO Primary Care Provider Encounter Details Date Type Department Care Team (Late st Contact Info) Description 05/10/2020 Orders Only [facility] [address] [place] [address] Ghulam Dupont MD [id number] [place], [place] [id number] Prostate cancer (CMS/HCC) Social History Tobacco Use Types Packs/Day Years Used Date Smoking Tobacco: Never Smokeless Tobacco: Never Alcohol Use Standard Drinks/Week Comments Not Currently 0 (1 standard drink = 0.6 oz pur e alcohol) Sex and Gender Information Value Date Recorded Sex Assigned at Not on file Legal Sex Male 12:20 AM STATOR TESTER Gender Identity Not on file Sexual Orientation Not on file documented as of this encounter Plan of Treatment Not on file documented as of this encounter Procedures Procedure Name Priority Date/Time Associated Diagnosis Comments SURGICAL PATHOLOGY Routine 05/10/2020 12 :00 AM STATOR TESTER Prostate cancer (CMS/HCC) documented in this encounter Results * Surgical pathology (05/10/2020 12:00 AM STATOR TESTER) Tissue 05/10/2020 05/10/2020 10: 39 AM STATOR TESTER Narrative [facility] - 05/15/2020 2:35 PM STATOR TESTER EPIC results best viewed via link to PDF [facility] Pathology Consult Service [address], [address], [place] [address] SURGICAL PATHOLOGY REPORT * Consult Report * [facility] is providing an additional review of previously collected tissue. FINAL Patient Name: ??SHANON CHAPA Address: ??[address] [place] [address], ?[place], [place] ??[address] Gender: ??M : ??1945 (Age: 74) Hospital #: ??[id number] Patient Type: ??[facility] Location: ??PVTOP Taken: ??05/10/2020 Received: ??05/10/2020 Accessioned: ??05/12/2020 Reported: ??05/15/2020 Physician(s): Ghulam Dupont M.D. [facility] Department of Pathology [address] [place] [address] P: [phone] F: [phone] F: [phone] Diagnosis: Consult material received from [facility], [place], [place] ([id number], 03/12/2020) A. ??Prostate and seminal vesicles, radical prostatectomy ? - Prostatic adenocarcinoma, Badger score 4+5 = 9, grade group 5, involving 70% of the prostatic tissue, with bilateral seminal vesicle invasion, with extraprostatic extension in the left posterior (nonfocal) right posterior (nonfocal) and left anterior (nonfocal), with lymphovascular and perineural invasion, involving surgical margins in areas of intraprostatic incision (bladder neck margin/base, pattern 4, multifocal, limited, 3 mm), pathologic stage pT3b B. ??Lymph nodes, right pelvic, excision ? - Nine lymph nodes with no evidence of malignancy (0/9) C. ??Lymph nodes, left pelvic, excision ? - Two lymph nodes with no evidence of malignancy (0/2) ixa/05/14/2020 16:30 By this signature, I attest that the above diagnosis is based upon my personal examination of the slides(and/or other material indicated in the diagnosis). Dirk Delacruz DO Report Electronically Reviewed and Signed Out By Dirk Delacruz DO 05/15/2020 14:35:47 Microscopic Description and Comment: Microscopic examination substantiates the above cited diagnosis. Fátima Bains M.D. History: The patient is a 74 year old man with a history of prostate cancer. Materials Received: Received for review are eighty-two slides labeled [id number], accompanied by a corresponding pathology report. The material originates from [facility], [place], [place]. ? Selected slides may be digitally scanned for our files, and all materials are returned to the referring institution, along with a copy of our final report. Any testing required for diagnostic purposes was performed in the Department of Pathology and Immunology at [facility], [address] [place] [address] CLIA # [id number] The performance characteristics of the testing cited in this report (if any) were determined by the ??[facility] Department of Pathology and Immunology [facility], as part of an ongoing quality process auditor program and in compliance with federally mandated regulations drawn from the Clinical Laboratory Improvement Act of 1988 (CLIA '88). ??Some of these tests rely on the use of analyte specific reagents (ASR) and are subject to specific labeling requirements by the US Food and Drug Administration. ??Such diagnostic tests may only be performed in a facility that is certified by the Department of Health and Human Services as a high complexity laboratory under CLIA '88. ??The FDA has determined that such clearance or approval is not necessary. ??ASRs should not be regarded as investigational or for research. ??ASRs were developed and the performance characteristics determined by the [facility], [facility] Department of Pathology and Immunology. ??It has not been cleared or approved by the U.S. Food and Drug Administration. ??Any test designated as LDT was developed and its performance characteristics determined by [facility]. It has not been cleared or approved by the FDA. This test is used for clinical purposes and should not be regarded as investigational or for research. Report images and/or scanned reports, if included, only viewable in PDF version of report. us Ghulam Dupont MD LAB PATHOLOGY ORDERABLES Final Result [facility] [address] [place] [address] documented in this encounter Visit Diagnoses Diagnosis Prostate cancer (HCC) Malignant neoplasm of prostate documented in this encounter Care Teams Department Assistant Relationship Specialty Start Date End Date Ronald Lam DO PCP - General 07/07/18 documented as of this encounter
--- OUTSIDE RECORDS SUMMARY | 2024-04-20 01:06 | XMS_ITS | Encounter Summary ---
Author Organization [facility] Address [address] [place] [address] Care Team Providers Care Sleeping Car Service Attendant Name Role Phone Ronald Lam DO Primary Care Provider [phone] Encounter Details Date Type Department Care Team (Late st Contact Info) Description 02/15/2020 Telephone [facility] Cardiology [address] [facility] [address] [place] [address] Hector Desai MD [address] [id number] Social History Tobacco Use Types Packs/Day Years Used Date Smoking Tobacco: Never Smokeless Tobacco: Never Alcohol Use Standard Drinks/Week Comments Not Currently 0 (1 standard drink = 0.6 oz pur e alcohol) Sex and Gender Information Value Date Recorded Sex Assigned at Not on file Legal Sex 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 BP this am 148/87 2 hours after am meds. Pt will be in on Thursday for BP check and will go up on carvedilol if needed. * Telephone Encounter - Anabell Minor RN - 02/16/2020 8:42 AM CDT Message reviewed with pt. He will call Fri am with BP update. * Telephone Encounter - Jessica Hollins NP - 02/15/2020 8:42 PM CDT Thank you. Let's have him call us on Thursday to report his Thursday morning BP at least 1 hour after meds, and if his SBP is still 150 or higher, I want him to increase carvedilol 25 mg tablet to 1 1/2 tablets bid. Thank you. * Telephone Encounter - Anabell Minor RN - 02/15/2020 12:12 PM CDT Pt is concerned about his BP still elevated. Yesterday 155/100, and 161/100. Today 176/87 and 159/91. Instructed pt to cont to check BP once daily at least one hour after taking am meds. Call if BP cont to go up, otherwise we will give new med dose a couple days to work and make any needed adjustments on Thursday when he comes in for his BP check. [facility] * Telephone Encounter - Indira Krishnamurthy - 02/15/2020 10:38 AM CDT Pt called to report his high bp reading this morning is 154/100. documented in this encounter Plan of Treatment Not on file documented as of this encounter Visit Diagnoses Not on filedocumented in this encounter Care Teams Sleeping Car Service Attendant Relationship Specialty Start Date End Date Ronald Lam DO PCP - General 07/07/18 documented as of this encounter
--- OUTSIDE RECORDS SUMMARY | 2024-04-20 01:06 | XMS_ITS | Continuity of Care Document ---
Author Organization [facility] Address [address] [place] [id number] Care Team Providers Care Associate Professor Of Geology Name Role Phone Courtney Prado Primary Care Physician [phone] Encounter [facility] Financial Number [id number] Date(s): 02/25/24 - 02/25/[address] [id number] Discharge Disposition: Home or Self Care Attending Physician: Chente Brice Admitting Physician: Chente Brice Referring Physician: Chente Brice ANP Allergies, Adverse Reactions, Alerts No Known Allergies Assessment and Plan Future Appointments Appointment Date:03/11/2024 10:30:00 AM Scheduled Provider: Location:[facility] Appointment Type:yyNM CARDIAC MPI MULT BRANDY INJ Appointment Date:03/11/2024 11:00:00 AM Scheduled Provider: Location:[facility] Appointment Type:yyNM CARDIAC SCAN 30 Appointment Date:03/11/2024 11:30:00 AM Scheduled Provider: Location:[facility] Appointment Type:yyNM LEXISCAN STRESS TEST Appointment Date:03/11/2024 12:30:00 PM Scheduled Provider: Location:[facility] Appointment Type:yyNM CARDIAC SCAN 30 Appointment Date:03/24/2024 02:30:00 PM Scheduled Provider:Courtney Prado MD Location:[facility] Appointment Type:[facility] Complete Physical Exam Appointment Date:06/01/2024 11:00:00 AM Scheduled Provider:Jeromy Perez MD Location:[facility] Appointment Type:[facility] Established Patient 20mins Appointment Date:09/12/2024 10:30:00 AM Scheduled Provider:Kemi Daley MD Location:[facility] Appointment Type:[facility] EP Established Patient Appointment Date:10/10/2024 10:30:00 AM Scheduled Provider: Location:[facility] Cardiology Appointment Type:Echocardiogram Complete Study Appointment Date:10/10/2024 11:30:00 AM Scheduled Provider:Jose Martin Lomas M.D. Location:[facility] Appointment Type:[facility] EP Established Patient Cesilia Immunizations Given and Recorded Vaccine Date Status Refusal Reason influenza virus vaccine, inactivated 02/16/23 Give n influenza virus vaccine, live, trivalent 05/09/21 Recorded SARS-CoV-2 mRNA (5y-11y) vaccine 05/09/21 Recorded SARS-CoV-2 (COVID-19) mRNA BNT-162b2 vax 1 07/28/20 Recorded SARS-CoV-2 (COVID-19) mRNA BNT-162b2 vax 2 07/03/20 Recorded 1Result Comment: [place], [place] 2Result Comment: [place] Medications allopurinol 100 mg oral tablet 100 mg, 1 tablet(s), Oral, bid, 180 tablet(s), 2, 2, Route to Pharmacy Electronically, [facility] #[id number], [id number], 183, cm, 02/16/23 13:04:00 CDT, Height, 110.5, kg, 02/16/23 13:04:00 CDT, Weight Start Date: 05/15/23 Stop Date: 02/09/24 Status: Ordered amLODIPine 10 mg oral tablet See Instructions, 90 tablet(s), 1, TAKE 1 TABLET BY MOUTH EVERY DAY, Route to Pharmacy Electronically, [facility] #[id number], [id number], Instructions Replace RequiredDetails, 183, cm, 09/07/23 11:29:00 CDT, Height, 109.3, kg, 09/07/23 11:29:00 CDT, Weight Start Date: 09/11/23 Status: Ordered Arexvy preservative-free intramuscular injection 60 mcg, 0.5 mL, IntraMuscular, Once, 0.5 mL, 0, 0, Pharmacy to administer, Route to Pharmacy Electronically, [facility] #[id number], [id number], 183, cm, 09/07/23 11:29:00 CDT, Height, 109.3, kg, 09/07/23 11:29:00 CDT, Weight Start Date: 09/07/23 Status: Ordered aspirin 81 mg oral enteric coated tablet 81 mg, 1 tablet(s), Oral, daily, Tab EC, 0 Start Date: 07/05/20 Status: Ordered atorvastatin 80 mg oral tablet 1 tablet(s), Oral, daily, 90 tablet(s), 3, Route to Pharmacy Electronically, [facility] #[id number], [id number], 183, cm, 02/16/23 13:04:00 CDT, Height, 110.5, kg, 02/16/23 13:04:00 CDT, Weight Start Date: 07/13/23 Status: Ordered cloNIDine 0.1 mg oral tablet 1 tablet(s), Oral, bid, 180 tablet(s), 2, 2, Route to Pharmacy Electronically, [facility]#[id number], [id number], 183, cm, 02/16/23 13:04:00 CDT, Height, 110.5, kg, 02/16/23 13:04:00 CDT, Weight Start Date: 08/06/23 Stop Date: 05/02/24 Status: Ordered Entresto 24 mg-26 mg oral tablet 0.5 tablet(s), Oral, bid, 30 tablet(s), Tablet(s), 11, 11, Route to Pharmacy Electronically, [facility] #[id number], [id number], 182, cm, 02/25/24 13:51:00 CDT, Height, 105, kg, 02/25/24 13:51:00 CDT, Weight Start Date: 02/25/24 Status: Ordered ezetimibe 10 mg oral tablet 1 tablet(s), Oral, daily, 90 tablet(s), 3, Route to Pharmacy Electronically, [facility] #[id number], [id number], 182, cm, 10/28/23 9:42:00 CDT, Height, 105.2, kg, 10/28/23 9:42:00 CDT, Weight Start Date: 01/07/24 Status: Ordered Gemtesa 75 mg oral tablet 75 mg, 1 tablet(s), Oral, daily, 30 tablet(s), 3, 3, Route to Pharmacy Electronically, [facility] #[id number], [id number], 182, cm, 10/28/23 9:42:00 CDT, Height, 105.2,kg, 10/28/23 9:42:00 CDT, Weight Start Date: 01/14/24 Stop Date: 05/13/24 Status: Ordered levothyroxine 50 mcg (0.05 mg) oral tablet 1 tablet(s), Oral, daily before breakfast, 90 tablet(s), 0, Route to Pharmacy Electronically, [facility] #[id number], [id number], 182, cm, 10/28/23 9:42:00 CDT, Height, 105.2, kg, 10/28/23 9:42:00 CDT, Weight Start Date: 12/15/23 Status: Ordered Metoprolol Tartrate 50 mg oral tablet 1 tablet(s), Oral, bid, 180 tablet(s), 3, Route to Pharmacy Electronically, [facility] #[id number], [id number], 182, cm, 10/28/23 9:42:00 CDT, Height, 105.2, kg, 10/28/23 9:42:00 CDT, Weight Start Date: 11/09/23 Status: Ordered minoxidil 2.5 mg oral tablet 1 tablet(s), Oral, bid, 180 tablet(s), 0, Route to Pharmacy Electronically, [facility] #[id number], [id number], 182, cm, 02/25/24 13:51:00 CDT, Height, 105, kg, 02/25/24 13:51:00 CDT, Weight Start Date: 02/25/24 Status: Ordered pantoprazole 40 mg oral delayed release tablet 40 mg, 1 tablet(s), Oral, bid before meals, 180 tablet(s), Tab EC, 0, 0, Route to Pharmacy Electronically, [facility] #[id number], [id number], 182, cm, 11/24/2022 1326, Height, 106, kg, 11/23/2022 1254, Weight Start Date: 11/25/22 Stop Date: 02/23/23 Status: Ordered sucralfate 1 g/10 mL oral suspension 1 gm, 10 mL, Oral, qid, 1,200 mL, Susp, 0, 0, Route to Pharmacy Electronically, [facility] #[id number], [id number], 182, cm, 11/24/2022 1326, Height, 106, kg, [...] Safety Implantable Status Assigning Authority Unknown Unknown [id number] Unknown 03/04/23 Unknown Unknown Active Unkn own Procedure Provider Procedure Date Device Type Site Mitral Valve Annuloplasty Unknown 07/11/20 Unknown Unknown Device Identifier Serial Number Lot or Batch Number Manufacturing Date Expiration Date Distinct Identification Code MRI Safety Implantable Status Assigning Authority [id number] Unknown Unknown 03/13/24 Unknown MR Condrianna onal [...] Authorization to Treat * [facility] [employer] Civil Engineer: PERFORM Event Display: ROI_Correspondence Authored Date: [id number] * Event Display: ROI_Correspondence * Event Display: ROI_Correspondence Authored Date: [id number] Heart * Event Display: Echocardiogram Complete Study * Event Display: Echocardiogram Complete Study Authored Date: [id number] [facility] CARDIOLOGY SERVICES [address] 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 1.5ml of intravenous Definity contrast was utilized to enhance endocardial visualization. This was administered by NICKY at 13:20 . INDICATIONS: Hypertension, Mitral valve repair Measurements: 2D/M Mode Doppler Measurement Value Normal Range Measurement Value Normal Range LVIDd 2D 3.9 [ 3.9 - 5.7 ] cm LVOT Peak Andre 1.05 [ 0.80 - 1.50 ] m/s LVIDs 2D 3.0 [ 2.0 - 3.8 ] cm LVOT VTI 22.2 [ 20.0 - 30.0 ] cm IVSd 2D 1.8 [ 0.6 - 1.0 ] cm LVOT Diam 2.5 [ 1.4 - 2.6 ] cm LVPWd 2D 1.5 [ 0.6 - 1.0 ] cm SI LVOT 48.54 [ 35.00 - 70.00 ] mL/m2 LV Mass 262 g AV Peak Andre 1.4 m/s LV Mass Index 113 [ 49 - 115 ] g/m2 AV Peak PG 7.6 mmHg RWT 0.77 [ 0.00 - 0.45 ] AV Mean PG 4.5 mmHg EDV 2D Teich 65 [ 145 - 0 ] ml AV VTI 29.7 cm LV Diastolic Volume Index 28 [ 34 - 74 ] CED VTI 3.67 cm2 ESV Teich 2D 35 [ 60 - 0 ] ml AV DV Index (Velocity) 0.75 [ >= 0.50 ] EF Mod BP 38 [ 50 - 74 ] % AV DVTI Index (VTI) 0.75 [ >= 0.50 ] LV FS 2D 23 [ 25 - 47 ] % MV E Peak Andre 113.0 [ 0.7 - 1.2 ] cm/sec LA Volume Index 27 [ 20 - 34 ] ml/m2 MV A Peak Andre 97.9 cm/sec RVDd 2D 3.6 [ 0.0 - 4.2 ] cm MV E/A 1.2 Tapse 1.8 [ 1.6 - 2.3 ] cm MV PHT 101.9 msec RA Area 22 [ 8 - 20 ] cm2 MV Decel Time 287.9 [ 180.0 - 240.0 ] msec IVC Diam 2.0 [ 1.1 - 2.1 ] cm MVA 2.2 LVOT Diam 2.5 [ 1.4 - 2.6 ] cm MV Mean PG 3.0 mmHg Sinus of Valsalva 4.4 cm PV Peak Andre 1.02 [ 0.80 - 1.50 ] m/s Asc Ao Diam 2D 4.3 [ 2.0 - 3.7 ] cm PV Peak PG 4.1 mmHg ___ ___ ___ TR Peak Andre 3.00 [ 1.50 - 2.70 ] m/s ___ ___ ___ TR Peak PG 35.9 [ 20.0 - 32.0 ] mmHg ___ ___ ___ TV S` Andre 10.0 [ 10.0 - 25.0 ] m/s ___ ___ ___ Lat E` Andre 10.8 cm/sec ___ ___ ___ Med E` Andre 4.2 cm/sec Average E` 7.50 E/E` 15.07 [ <= 14.00 ] Measurement Value Normal Range Measurement Value Normal Range 2D/M Mode Doppler - FINDINGS: Left Ventricle: The left ventricular ejection fraction is measured by Simpsons biplane method at 38 %. Indeterminate diastolic function due to mitral valve repair or replacement. Mild hypertrophy of the basal septum. Right Ventricle: Normal right ventricular size. Normal right ventricular systolic function. Normal regional RV wall motion. Left Atrium: The left atrium is normal in size. Right Atrium: RA appears normal in size. Atrial Septum: Normal atrial septum. Mitral Valve: Mild focal calcification of the anterior and posterior mitral valve leaflet(s). Mild mitral regurgitation. Mitral valve annuloplasty ring/repair visualized. S/P mitral valve repair with ring annuloplasty. Normal post-surgical appearance of leaflets and ring. Aortic Valve: Normal appearance and function of the aortic valve. Tricuspid Valve: Normal appearance of the tricuspid valve. There is trace tricuspid regurgitation. Estimated RVSP 37-42 mmHg. Pulmonic Valve: Normal appearance of the pulmonic valve leaflets. There is mild pulmonic regurgitation. Pericardium: Normal pericardium with no significant pericardial effusion. Aorta: There is mild aortic root calcification. IVC: Normal inferior vena cava appearance and respiratory collapse. Pulmonary Artery: Normal pulmonary artery size. Rhythm: The rhythm during the study was normal sinus rhythm. Prior Comparison: Compared with prior study of 12/02/21, ejection fraction has declined. CONCLUSIONS: 1. The left ventricular ejection fraction is measured by Simpsons biplane method at 38 %. Indeterminate diastolic function due to mitral valve repair or replacement. Mild hypertrophy of the basal septum. 2. Mild focal calcification of the anterior and posterior mitral valve leaflet(s). Mild mitral regurgitation. Mitral valve annuloplasty ring/repair visualized. S/P mitral valve repair with ring annuloplasty. Normal post-surgical appearance of leaflets and ring. 3. Normal appearance and function of the aortic valve. 4. Normal appearance of the tricuspid valve. There is trace tricuspid regurgitation. Estimated RVSP 37-42 mmHg. Electronically Signed By: Zaid Lindquist MD 2024-02-25 13:52:51 CDT * Event Display: Echocardiogram Report Patient Care team information Care Team Personnel Name: Jada Reynaga MD Position: Physician - Cardiology Member Role: Specialist Physician Address: Address: [address] [place] [address] [place] Name: Nancy Suresh Specialist Position: Population Health Coordinator Member Role: Population Health Coordinator Name: Shereen Owens LONG WINDER TENDER Position: AMB LONG WINDER TENDER/PA Member Role: Nurse Practitioner Address: Address: [address] [place] [address] [place] [address] [place] Name: Khoi Hendrickson Member Role: Urologist Name: Kenia Gregory M.D. Position: Physician - Endocrine Member Role: Director Translation Address: Address: [address] [facility] [address] [place], [place] [id number] [place] Name: Vlad Varner MD Position: Physician - Electrophysiology Member Role: Specialist Physician Address: Address: [address] [place] [address] [place] Name: Jeromy Perez MD Position: Physician - Urology Member Role: Urologist Address: Address: [address] [place] [address] [place] Name: Gab Marquez M.D. Position: Physician - Infectious Disease Member Role: Infectious Disease Address: Address: [address] [place] [address] [place] Name: Sheron Lamb SPECIALIST II Position: Population Health Coordinator Member Role: Population Health Coordinator Name: Yonas Clements MD Member Role: Specialist Physician Name: Mark Sesay M.D. Position: Physician - Cardiothoracic Surgery Member Role: Specialist Physician Address: Address: [address] [facility] [address] [address] [place], [place] [address]- Name: Courtney Prado MD Position: Physician - Internal Medicine Member Role: Primary Care Physician Address: Address: [address] [facility] [facility] [address] [place] [address] [place] Name: Jessica Crowe LONG WINDER TENDER Position: P4 Nurse Practitioner Member Role: Nurse Practitioner Address: Address: [address] [facility] [address] [place] [address] [place] Name: Fritz Oreilly MD Position: Physician - Infectious Disease Member Role: Specialist Physician Address: Address: [address] [facility] [address] [place], [place] [id number] [place] Name: Jose Martin Lomas M.D. Position: Physician - Cardiology Member Role: Specialist Physician Address: Address: [facility] [address] [facility] [address] [place] [address] [place] Name: Macy Ansari RN Position: AMB ONC Nurse Navigator Member Role: Nurse Navigator Name: Chente Brice ANP Position: AMB LONG WINDER TENDER/PA Med Service: Director Of Sales And Marketing Associate Professor Of Geology Role: Referring Physician Address: Address: [address] [facility] [address] [place] [address] [place] Care Team Related Persons Name: JL BROWER Name: ALLAN VALDES Name: FREDA REYES
--- OUTSIDE RECORDS SUMMARY | 2024-04-20 01:06 | XMS_ITS | Encounter Summary ---
Author Organization [facility] Address [address] [place] [address] Phone Care Team Providers Care Vice President Diversity Name Role Phone Ronald Lam DO Primary Care Provider Encounter Details Date Type Department Care Team (Late st Contact Info) Description 05/09/2020 Telephone [facility] ([facility]) - [facility] [address] [facility] 11th [place] [address] [place] [address] Ghulam Dupont MD [address] [facility] [id number] [place] [address] Social History Tobacco Use Types Packs/Day Years Used Date Smoking Tobacco: Never Smokeless Tobacco: Never Alcohol Use Standard Drinks/Week Comments Not Currently 0 (1 standard drink = 0.6 oz pur e alcohol) Sex and Gender Information Value Date Recorded Sex Assigned at Not on file Legal Sex Male 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 COURSE PATROLLER documented in this encounter Plan of Treatment Not on file documented as of this encounter Visit Diagnoses Not on filedocumented in this encounter Care Teams Vice President Diversity Relationship Specialty Start Date End Date Ronald Lam DO PCP - General 07/07/18 documented as of this encounter
--- OUTSIDE RECORDS SUMMARY | 2024-04-20 01:06 | XMS_ITS | Encounter Summary ---
Author Organization [facility] Address [address] [place] [address] Phone Care Team Providers Care Head Men'S Golf Coach Name Role Phone Ronald Lam DO Primary Care Provider [phone] Encounter Details Date Type Department Care Team (Late st Contact Info) Description 05/09/2020 Orders Only [place] [facility] ([facility]) - [facility] [address] [facility] 11th [place] [address] [place] [address] Ghulam Dupont MD [address] [facility] [id number] [place], [place] [id number] Prostate cancer (CMS/HCC) (Primary Dx) Social History Tobacco Use Types Packs/Day Years Used Date Smoking Tobacco: Never Smokeless Tobacco: Never Alcohol Use Standard Drinks/Week Comments Not Currently 0 (1 standard drink = 0.6 oz pur e alcohol) Sex and Gender Information Value Date Recorded Sex Assigned at Not on file Legal Sex Male 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 Gender Identity Not on file Sexual Orientation Not on file documented as of this encounter Plan of Treatment Not on file documented as of this encounter Results * Surgical pathology (05/10/2020 12:00 AM HARVEST WORKER FRUIT) Tissue 05/10/2020 05/10/2020 10: 39 AM HARVEST WORKER FRUIT Narrative [facility] - 05/15/2020 2:35 PM HARVEST WORKER FRUIT EPIC results best viewed via link to PDF [facility] Pathology Consult Service [address]ie[address], [address], [place] [address] SURGICAL PATHOLOGY REPORT * Consult Report * [facility] is providing an additional review of previously collected tissue. FINAL Patient Name: ??SHANON CHAPA Address: ??[address] [place] [address], ?[place], [place] ??[address] Gender: ??M : ??1945 (Age: 74) Hospital #: ??[id number] Patient Type: ??[facility] Location: ??[facility] Taken: ??05/10/2020 Received: ??05/10/2020 Accessioned: ??05/12/2020 Reported: ??05/15/2020 Physician(s): Ghulam Dupont M.D. [facility] Department of Pathology [facility] [address] [place] [address] P: [phone] F: [phone] F: [phone] Diagnosis: Consult material received from [facility], [place], [place] ([id number], 03/12/2020) A. ??Prostate and seminal vesicles, radical prostatectomy ? - Prostatic adenocarcinoma, Erin score 4+5 = 9, grade group 5, [...] Received for review are eighty-two slides labeled [id number], accompanied by a corresponding pathology report. The material originates from [facility], [place], [place]. ? Selected slides may be digitally scanned for our files, and all materials are returned to the referring institution, along with a copy of our final report. Any testing required for diagnostic purposes was performed in the Department of Pathology and Immunology at [facility], [address] [place] [address] CLIA # [id number] The performance characteristics of the testing cited in this report (if any) were determined by the ??[facility] Department of Pathology and Immunology [facility], as part of an ongoing director supplier quality program and in compliance with federally mandated [...] and the performance characteristics determined by the [facility], [facility] Department of Pathology and Immunology. ??It has not been cleared or approved by the U.S. Food and Drug Administration. ??Any test designated as LDT was developed and its performance characteristics determined by [facility]. It has not been cleared or approved by the FDA. This test is used for clinical purposes and should not be regarded as investigational or for research. Report images and/or scanned reports, if included, only viewable in PDF version of report. us Ghulam Dupont MD LAB PATHOLOGY ORDERABLES Final Result [facility] [address] [place] [address] documented in this encounter Visit Diagnoses Diagnosis Prostate cancer (HCC)- Primary Malignant neoplasm of prostate Prostate cancer (HCC) Malignant neoplasm of prostate documented in this encounter Care Teams Head Men'S Golf Coach Relationship Specialty Start Date End Date Ronald Lam DO PCP - General 07/07/18 documented as of this encounter
--- OUTSIDE RECORDS SUMMARY | 2024-04-20 01:06 | XMS_ITS | Referral Summary ---
Author Organization [facility] [address] Address [address] [place] [address] Care Team Providers Care Orthopedic Mechanic Name Role Phone Ronald Lam DO Primary Care Provider [phone] Allergies No known active allergies Medications multivitamin [...] Overview (08/08/2016): MIXED HYPERLIPIDEMIA Coronary arteriosclerosis in torres martinez artery 09/17 Overview (08/08/2016): CRNRY ATHRSCL NATVE VSSL Hypertension 09/17/2013 Overview (08/08/2016): HYPERTENSION NOS Status post angioplasty with stent Coronary artery disease invo lving torres martinez coronary artery of torres martinez heart with unstable angina pectoris Social History Tobacco Use Types Packs/Day Years Used Date Smoking Tobacco: Never Smokeless Tobacco: Never Tobacco Cessation:Counseling Given: Yes Alcohol Use Standard Drinks/Week Comments Not Currently 0 (1 standard drink = 0.6 oz pur e alcohol) Sex and Gender Information Value Date Recorded Sex Assigned at Not on file Legal Sex Male 12:20 AM CRYPTOLOGIC SUPERVISOR Gender Identity Not on file Sexual Orientation Not on file Last Filed Vital Signs Vital Sign Reading Time Taken Comments Blood Pressure 108/61 05/18/2020 12:34 PM CRYPTOLOGIC SUPERVISOR Pulse 72 05/18/2020 12:34 PM CRYPTOLOGIC SUPERVISOR Temperature 36.3 ??C (97.4 ??F) 08/17/2019 1:28 PM CD T Respiratory Rate 16 07/09/2018 3:43 PM CRYPTOLOGIC SUPERVISOR Oxygen Saturation 65% 02/13/2020 8:41 AM CDT Inhaled Oxygen Concentration - - Weight 111.1 kg (245 lb) 05/18/2020 12:34 PM CRYPTOLOGIC SUPERVISOR Height 185.4 cm (6' 1 ) 05/18/2020 12:34 PM CRYPTOLOGIC SUPERVISOR Body Mass Index 32.32 05/18/2020 12:34 PM CRYPTOLOGIC SUPERVISOR Plan of Treatment Not on file Medical Devices Implanted Type Area Carbon Blocks Press Operator Device Identifier Shelf Expiration Date Model / Serial / Lot People and Pages Miranda [id number] Synergy 3mm 32mm 144cm Radiopaque 1 Access Port Inflation Lumen - [id number] Implanted:Qty: 1 on 07/08/2018 by Hector Desai MD at [facility] 01/12/2020 [id number] / / [id number] [facility] [id number] Angio-Seal Vip Bondek-Plus 6fr .035in 70cm Hemostatic Latex Free - [id number] Implanted:Qty: 1 on 07/08/2018 by Hector Desai MD at [facility] 03/03/2019 [id number] / / [id number] Insurance MEDICARE [facility] MEDICARE [facility] Advance Directives For more information, please contact: [phone] * Full Code (Latest Code Status on File) Date Activated Date Inactivated Comments 07/07/2018 11:10 PM 07/09/2018 8:55 PM Care Teams Orthopedic Mechanic Relationship Specialty Start Date End Date Ronald Lam DO PCP - General 07/07/18
--- OUTSIDE RECORDS SUMMARY | 2024-04-20 01:06 | XMS_ITS | Encounter Summary ---
Author Organization [facility] Address [address] [place] [address] Care Team Providers Care Sheep Farm Worker Name Role Phone Ronald Lam DO Primary Care Provider [phone] Encounter Details Date Type Department Care Team (Late st Contact Info) Description 05/21/2020 Telephone [facility] Cardiology [address] [facility] [address] [place] [address] Hector Desai MD [address] [id number] Social History Tobacco Use Types Packs/Day Years Used Date Smoking Tobacco: Never Smokeless Tobacco: Never Alcohol Use Standard Drinks/Week Comments Not Currently 0 (1 standard drink = 0.6 oz pur e alcohol) Sex and Gender Information Value Date Recorded Sex Assigned at Not on file Legal Sex Male 12:20 AM SERICULTURE TEACHER Gender Identity Not on file Sexual Orientation Not on file documented as of this encounter Miscellaneous Notes * Telephone Encounter - Lillian Rolle RN - 05/21/2020 4:14 PM SERICULTURE TEACHER Spoke with pt dgt and pt is admitting to [facility] for pneumonia. Records sent to [facility] from recent hosp stay-ekg, echo, note. Dgt would like to keep 05/23 appt in the event that pt is dc'd before then. CULTURE TEACHER * Telephone Encounter - Indira Krishnamurthy - 05/21/2020 3:24 PM CST Pt's daughter called back to speak with SAUMYA Snyder in regards to pt appt date. CULTURE TEACHER * Telephone Encounter - Lillian Rolle RN - 05/21/2020 8:57 AM SERICULTURE TEACHER Dgt called to report pt went to [facility] ED early this morning. Pt woke up having night sweats and his BP was 180/?, son in law is an ED physician and said he needed to be seen. Dgt hasnt gotten anupdate from ED yet to know what the plan of care is yet. Informed her that [facility] is not [facility] cant see anything from our end. Advised her to callback with an update if she'd like or that we would be happy to help with any records if they are needed. CULTURE TEACHER * Telephone Encounter - Nisa Dugan - 05/21/2020 8:35 AM CST Pt daughter Ayleen called to report that the pt was taken to ER at [facility] with high BP 180/120 and also a high HR. Pt is currently still in the ER. Ayleen has requested a return call to discuss. cb [phone] CULTURE TEACHER documented in this encounter Plan of Treatment Not on file documented as of this encounter Visit Diagnoses Not on filedocumented in this encounter Care Teams Sheep Farm Worker Relationship Specialty Start Date End Date Ronald Lam DO PCP - General 07/07/18 documented as of this encounter
--- OUTSIDE RECORDS SUMMARY | 2024-04-20 01:06 | XMS_ITS | Continuity of Care Document ---
Author Organization [facility] Address [address] [place] [id number] Care Team Providers Care Health And Safety Technician Name Role Phone Emmanuel Broussard Primary Care Physician Kemi Daley Unavailable Vlad Varner Unavailable Jose Martin Lomas Unavailable Mark Sesay Unavailable Fritz Oreilly Unavailable Jada Reynaga Unavailable Yonas Clements Unavailable Encounter [facility] Financial Number [id number] Date(s): 08/08/20 - 06/13/[address] [id number] Encounter Diagnosis Other persistent atrial fibrillation(Final) - Other exterminator termite (current) drug therapy(Final) - Paroxysmal atrial fibrillation(Final) - Discharge Disposition: Home or Self Care Attending Physician: Jose Martin Lomas M.D. Referring Physician: Jose Martin Lomas M.D. Allergies, Adverse Reactions, Alerts No Known Allergies Assessment and Plan Future Appointments Appointment Date:07/05/2021 09:30:00 AM Scheduled Provider:Kemi Daley MD Location:[facility] Appointment Type:[facility] New Patient Appointment Date:12/02/2021 10:30:00 AM Scheduled Provider: Location:[facility] Cardiology Appointment Type:Echocardiogram Complete Study Appointment Date:12/02/2021 11:30:00 AM Scheduled Provider:Jose Martin Lomas M.D. Location:[facility] Appointment Type:CCC EP Established Patient Appointment Date:12/05/2021 10:30:00 AM Scheduled Provider:Emmanuel Broussard MD Location:[facility] Appointment Type:CON EP Established Patient Appointment Date:04/22/2022 10:15:00 AM Scheduled Provider:Vlad Varner M.D. Location:[facility] Elect Spec Appointment Type:SLES EP Established Patient Immunizations Given and Recorded Vaccine Date Status Refusal Reason influenza virus vaccine, live, trivalent 05/09/21 Recorded SARS-CoV-2 mRNA (5y-11y) vaccine 05/09/21 Recorded SARS-CoV-2 (COVID-19) mRNA BNT-162b2 vax 1 07/28/20 Recorded SARS-CoV-2 (COVID-19) mRNA BNT-162b2 vax 2 07/03/20 Recorded 1Result Comment: [place] Me 2Result Comment: [place], [place] Medications allopurinol 100 mg oral tablet 200 mg, 2 tablet(s), Oral, daily, 180 tablet(s), Tablet(s), 3, 3, Route to Pharmacy Electronically,[facility] #[id number], [id number], 182.88, cm, 05/23/2021 0950, Height, 119, kg, 05/23/2021 0950, Weight Start Date: 05/23/21 Stop Date: 05/18/22 Status: Ordered amiodarone 100 mg oral tablet 100 mg, 1 tablet(s), Oral, daily, 90 tablet(s), Tablet(s), 3, 3, Pt is now taking 100mgs a day, Route to Pharmacy Electronically, [facility] #[id number], [id number], 182.88, cm, 05/23/2021 0950, Height, 119, kg, 05/23/2021... Start Date: 05/23/21 Stop Date: 05/18/22 Status: Ordered amLODIPine 10 mg oral tablet 10 mg, 1 tablet(s), Oral, daily, 90 tablet(s), Tablet(s), 3, 3, Route to Pharmacy Electronically, [facility] #[id number], [id number], 182.88, cm, 05/23/2021 0950, Height, 119, kg, 05/23/2021 0950, Weight Start Date: 05/23/21 Status: Ordered aspirin 81 mg oral enteric coated tablet 81 mg, 1 tablet(s), Oral, daily, Tab EC, 0 Start Date: 07/05/20 Status: Ordered atorvastatin 80 mg oral tablet See Instructions, 90 tablet(s), 2, TAKE 1 TABLET(80 MG) BY MOUTH DAILY, Route to Pharmacy Electronically, [id number], [id number], Instructions Replace Required Details, 182, cm, 12/10/2020 1222, Height, 115.8,... Start Date: 01/16/21 Status: Ordered ezetimibe 10 mg oral tablet 1 tablet(s), Oral, daily, 30 tablet(s), 10, 0, Route to Pharmacy Electronically, [facility] #[id number], [id number], 182, cm, 12/10/2020 1222, Height, 115.8, kg, 22, Weight Start Date: 01/25/21 Status: Ordered furosemide 20 mg oral tablet See Instructions, # 90 tablet(s), Refill #: 3 Total Refills: 3, TAKE 1 TABLET BY MOUTH DAILY, [facility] #[id number] Start Date: 08/30/20 Status: Ordered metoprolol tartrate [...] 1 Complete d Prostatectomy Completed 2018 Results Most recent to oldest [Reference Range]: 1 2 3 Anticoag Clinic Target INR Range 2.0 - 3.0 (06/12/21 10:56 AM) 2.0 - 3.0 (05/16/21 11:25 AM) 2.0 - 3.0 (04/17/21 11:24 AM) INR Performed By [facility] (06/12/21 10:56 AM) [facility] (05/16/21 11:25 AM) [facility] (04/17/21 11:24 AM) INR (Anticoag Clinic) 2.4 (06/12/21 10:56 AM) 2.4 (05/16/21 11:25 AM) 2.5 (04/17/21 11:24 AM) Social History Social History Type Response Alcohol Never alcohol user Substance Abuse Never drug user Smoking Status Never smoker;Never; Tobacco Cessation Counseling Requested N/A entered on: 05/23/21 Sex Male Medical Equipment Implanted Date:07/11/20Target Site:Unknown Description Quantity MRI Company Model STL-SCREW SELF LOCKING 3.5MM X 18MM 16 [employer] Unknown JASE:No Information Assigning Authority: [facility] STL-PLATE LOW PROFILE V 4 HOLE 1 [employer] Unknown JASE:No Information Assigning Authority: FDA STL-PLATE LOW PROFILE H 6 HOLE 1 [employer] Unknown JASE:No Information Assigning Authority: [facility] STL-PLATE LOW PROFILE O 6 HOLE 1 [employer] Unknown JASE:No Information Assigning Authority: [facility] STL-RING PHYSIO II MITRAL ANNULOPLASTY 32MM 1 MR Conditional [employer] Unknown JASE:{01}[id number] Assigning Author ity:FDA STL-CLIP ATRI FLEX DEVICE [...]
--- OUTSIDE RECORDS SUMMARY | 2024-04-20 01:06 | XMS_ITS | Encounter Summary ---
Author Organization [facility] Address [address] [place] [address] Care Team Providers Care Solar Technician Name Role Phone Ronald Lam DO Primary Care Provider [phone] Encounter Details Date Type Department Care Team (Late st Contact Info) Description 12/23/2019 Telephone [facility] Cardiology [address] [facility] [address] [place] [address] Hector Desai MD [address] [phone] Social History Tobacco Use Types Packs/Day Years Used Date Smoking Tobacco: Never Smokeless Tobacco: Never Alcohol Use Standard Drinks/Week Comments Not Currently 0 (1 standard drink = 0.6 oz pur e alcohol) Sex and Gender Information Value Date Recorded Sex Assigned at Not on file Legal Sex Male 12:20 AM LADLE FILLER Gender Identity Not on file Sexual Orientation Not on file documented as of this encounter Miscellaneous Notes * Telephone Encounter - Anabell Minor RN - 12/23/2019 11:22 AM CDT Spoke with pt. He c/o intermittent vertigo. Went to the ER in july and was diagnosed with vertigo.He was given medication at that time to take and he states it does help when he takes it. Told pt it was unlikely to be related to the AC. Suggested he f/u with his PCP or an ENT doctor. He is seeinghis PCP soon. * Telephone Encounter - Krishnamurthy Indira - 12/23/2019 10:37 AM CDT Pt called to report experiencing vertigo and dizziness this morning after restarting his blood thinner medication. documented in this encounter Plan of Treatment Not on file documented as of this encounter Visit Diagnoses Not on filedocumented in this encounter Care Teams Solar Technician Relationship Specialty Start Date End Date Ronald Lam DO PCP - General 07/07/18 documented as of this encounter
--- OUTSIDE RECORDS SUMMARY | 2024-04-20 01:06 | XMS_ITS | Encounter Summary ---
Author Organization [facility] Address [address] [place] [address] Phone Care Team Providers Care Marketing Information Analyst Name Role Phone Ronald Lam DO Primary Care Provider Encounter Details Date Type Department Care Team (Late st Contact Info) Description 05/07/2020 Telephone [facility] Surgery [address] [place] [address] Antonietta Greer CMA Social History Tobacco Use Types Packs/Day Years Used Date Smoking Tobacco: Never Smokeless Tobacco: Never Alcohol Use Standard Drinks/Week Comments Not Currently 0 (1 standard drink = 0.6 oz pur e alcohol) Sex and Gender Information Value Date Recorded Sex Assigned at Not on file Legal Sex Male 12:20 AM TIMBER ROBBER Gender Identity Not on file Sexual Orientation Not on file documented as of this encounter Miscellaneous Notes * Telephone Encounter - Antonietta Greer CMA - 05/07/2020 9:12 AM TIMBER ROBBER Pt has a new appt. With Dr Dupont he had prosate cancer and had his prostate was removed 03/12 in [place]. He said he will have Dr rTini Hendrickson fax his records to us. ER ROBBER documented in this encounter Plan of Treatment Not on file documented as of this encounter Visit Diagnoses Not on filedocumented in this encounter Care Teams Marketing Information Analyst Relationship Specialty Start Date End Date Ronald Lam DO PCP - General 07/07/18 documented as of this encounter
--- OUTSIDE RECORDS SUMMARY | 2024-04-20 01:06 | XMS_ITS | Encounter Summary ---
Author Organization [facility] Address [address] [place] [address] Phone Care Team Providers Care Co Director Name Role Phone Ronald Lam DO Primary Care Provider [phone] Reason for Visit * Reason Comments Prostate Cancer RRP by DR Hendrickson 1 05/12/2019 Erectile Dysfunction Pt had RRP by Dr Farheen lo and now has ED-Dr Hendrickson recommended Penile injections. He lives in [facility] so Madhavi recommended he be seen here. Pt is here with his daughter. * Consultation (Routine) - Closed Specialty Diagnoses / Procedures Referred By Luke mccartney Referred To Contact Urology Diagnoses Encounter for consultation Ronald Lam DO Phone: tel: fax: [facility] (All Locations) Referral ID Status Reason Start Date Expiration Date V isits Requested Visits Authorized [id number] Closed Specialty Services Required 05/07/2020 06/06/2021 99 99 Encounter Details Date Type Department Care Team (Late st Contact Info) Description 05/18/2020 12:30 PM COLLAR TURNER Office Visit [facility] Urology [address] [place] [address] Ghulam Dupont MD [address] [facility] [id number] [place] [address] Prostate cancer (CMS/HCC) (Primary Dx); Encounter for consultation Social History Tobacco Use Types Packs/Day Years Used Date Smoking Tobacco: Never Smokeless Tobacco: Never Alcohol Use Standard Drinks/Week Comments Not Currently 0 (1 standard drink = 0.6 oz pur e alcohol) Sex and Gender Information Value Date Recorded Sex Assigned at Not on file Legal Sex Male 12:20 AM COLLAR TURNER Gender Identity Not on file Sexual Orientation Not on file documented as of this encounter Last Filed Vital Signs Vital Sign Reading Time Taken Comments Blood Pressure 108/61 05/18/2020 12:34 PM COLLAR TURNER Pulse 72 05/18/2020 12:34 PM COLLAR TURNER Temperature - - Respiratory Rate - - Oxygen Saturation - - Inhaled Oxygen Concentration - - Weight 111.1 kg (245 lb) 05/18/2020 12:34 PM COLLAR TURNER Height 185.4 cm (6' 1 ) 05/18/2020 12:34 PM COLLAR TURNER Body Mass Index 32.32 05/18/2020 12:34 PM COLLAR TURNER documented in this encounter Progress Notes * Ghulam Dupont MD - 05/18/2020 12:30 PM CST Subjective/Objective Patient ID: Yosef Chapa is a 74 y.o. y.o. male. Chief Complaint Prostate Cancer (RRP by DR Hendrickson 03/12/2020) and Erectile Dysfunction (Pt had RRP by Dr Hendrickson and now has ED-Dr Hendrickson recommended Penile injections. He lives in [facility] so Madhavi recommended he be seen here. Pt is here with his daughter.) HPI The patient is here with his daughter. He had a radical prostatectomy by Dr. Hendrickson in March 2020. He had an uncomplicated postoperative course. I do not have the pathology report, but it soundslike he had high-grade disease with negative surgical margins. He reports that his postoperative PSA is undetectable. There is some confusion about the role of injection therapy that he was prescribed following the surgery. Patient reports that he is and is not sexually active and had ED prior to the surgery. He reports that his urinary control is improving. He can hold his urine when getting up from bed in the morning and make it to the bathroom without leaking. I was requested to see Yosef Chapa to evaluate his/her injection therapy by Dr. Khoi Morrow. Review of Systems Constitutional: Negative for chills, fever and malaise/fatigue. Respiratory: Negative for shortness of breath. Gastrointestinal: Negative for abdominal pain, nausea and vomiting. Genitourinary: Negative for dysuria, flank pain and hematuria. Musculoskeletal: Negative for back pain. Skin: Negative for rash. Physical Exam Constitutional: Appearance: He is well-developed. Eyes: Pupils: Pupils are equal, round, and reactive to light. Pulmonary: Effort: Pulmonary effort is normal. Abdominal: General: There is no distension. Tenderness: There is no guarding. Musculoskeletal: Normal range of motion. Neurological: Mental Status: He is alert and oriented to person, place, and time. Psychiatric: Mood and Affect: Mood normal. Behavior: Behavior normal. Diagnoses and all orders for this visit: Prostate cancer (CMS/HCC) (Primary) Encounter for consultation - Ambulatory referral to Urology History of prostate cancer, status post radical prostatectomy in March 2020. Doing well. His urinary control seems to be improving at a normal pace. We had a fairly lengthy discussion about the role of injection therapy. After our discussion, the patient will no longer do injections as he is notsexually active. He will continue to do Kegel exercises. He will continue to follow-up with Dr. Hendrickson for his prostate cancer. He will follow-up with nd allie. AR TURNER documented in this encounter Plan of Treatment Not on file documented as of this encounter Visit Diagnoses Diagnosis Prostate cancer (HCC)- Primary Malignant neoplasm of prostate Encounter for consultation documented in this encounter Discontinued Medications Medication Sig Discontinue Reason Start Date End Da te clopidogreL (PLAVIX) 75 mg tablet TAKE 1 TABLET(75 MG) BY MOUTH DAILY Therapy completed 03/16/2020 05/18/2020 documented as of this encounter Historical Medications * This list may reflect changes made after this encounter. magnesium oxide (MAG-OX) 400 mg (241.3 mg elemental magnesium) tabletIndications: hypomagnesemia Take 400 mg by mouth daily aspirin 81 mg enteric coated tablet Take 81 mg by mouth daily added in this encounter Orders Outpatient Referral Count Last Ordered Date Fir st Ordered Date AMB REFERRAL TO UROLOGY 1 05/18/2020 documented in this encounter Care Teams Co Director Relationship Specialty Start Date End Date Ronald Lam DO PCP - General 07/07/18 documented as of this encounter
--- OUTSIDE RECORDS SUMMARY | 2024-04-20 01:06 | XMS_ITS | Encounter Summary ---
Author Organization [facility] Address [address] [place] [address] Care Team Providers Care Household Worker Name Role Phone Ronald Lam DO Primary Care Provider [phone] Reason for Visit * Reason Onset Date Comments ECHO CD 03/16/2020 Med Refill 03/16/2020 Encounter Details Date Type Department Care Team (Late st Contact Info) Description 03/16/2020 Telephone [facility] Cardiology [address] [place] [address] Hector Desai MD [address] [id number] ECHO CD; Med Refill Social History Tobacco Use Types Packs/Day Years Used Date Smoking Tobacco: Never Smokeless Tobacco: Never Alcohol Use Standard Drinks/Week Comments Not Currently 0 (1 standard drink = 0.6 oz pur e alcohol) Sex and Gender Information Value Date Recorded Sex Assigned at Not on file Legal Sex Male 12:20 AM PAY STATION ATTENDANT Gender Identity Not on file Sexual Orientation Not on file documented as of this encounter Ordered Prescriptions Prescription Sig Dispense Quantity Refills Last Filled Start Date End Date atorvastatin (LIPITOR) 80 mg tablet TAKE 1 TABLET(80 MG) BY MOUTH DAILY 90 tablet 1 03/16/2020 clopidogreL (PLAVIX) 75 mg tablet TAKE 1 TABLET(75 MG) BY MOUTH DAILY 90 tablet 1 03/16/2020 05/18/2020 DILT-XR 120 mg 24 hr capsule TAKE 1 CAPSULE(120 MG) BY MOUTH DAILY 90 capsule 1 03/16/2020 08/09/2020 documented in this encounter Miscellaneous Notes * Telephone Encounter - Hector Desai MD - 03/26/2020 1:39 PM CST Please scan the echo report to [facility] once received. Thank you STATION ATTENDANT * Telephone Encounter - Emmanuelle Ford RN - 03/20/2020 1:24 PM PAY STATION ATTENDANT I followed up on this call. I spoke with the patients daughter. She is going to call and see if thefacility can fax the official echo report to us. I gave her our fax number. I let her know in the mean time I will let Dr. Desai know that is where we are at in the process. STATION ATTENDANT * Telephone Encounter - Nisa Dugan - 03/20/2020 11:31 AM CST Incoming call from pt daughter requesting a return call to discuss EKG results. [phone] STATION ATTENDANT * Telephone Encounter - Darling Wilks MA - 03/20/2020 11:22 AM PAY STATION ATTENDANT Returned call and LM for Ayleen STATION ATTENDANT * Telephone Encounter - Indira Krishnamurthy - 03/20/2020 11:14 AM CST Pt's daughter called back to speak with Nikki BROWN. STATION ATTENDANT * Telephone Encounter - Darling Wilks MA - 03/20/2020 9:[address] Desai, At the [place] office. Left msg for daughter. STATION ATTENDANT * Telephone Encounter - Hector Desai MD - 03/19/2020 11:18 AM CST [facility] I will try to run the CD, but some of the CDs do not work on our computers due to in compatible software. Can you ask her to fax the official echo report? Thank you STATION ATTENDANT * Telephone Encounter - Darling Wilks MA - 03/16/2020 3:[address] Desai, Daughter, Ayleen, dropped off echo CD for you to review. She states pt had his prostate removed in [place] on 03/12/20 due to cancer. His HR was low. Would like us to call her if you have any concerns. CD is in your basket in the doc office hanging on the wall. Thank you CBN: [phone] STATION ATTENDANT STATION ATTENDANT documented in this encounter Plan of Treatment Not on file documented as of this encounter Visit Diagnoses Not on filedocumented in this encounter Discontinued Medications Medication Sig Discontinue Reason Start Date End Da te DILT-XR 120 mg 24 hr capsule TAKE 1 CAPSULE(120 MG) BY MOUTH DAILY 07/12/2019 03/16/2020 clopidogreL (PLAVIX) 75 mg tablet TAKE 1 TABLET(75 MG) BY MOUTH DAILY 07/12/2019 03/16/2020 atorvastatin (LIPITOR) 80 mg tablet TAKE 1 TABLET(80 MG) BY MOUTH DAILY 07/12/2019 03/16/2020 documented as of this encounter Care Teams Household Worker Relationship Specialty Start Date End Date Ronald Lam DO PCP - General 07/07/18 documented as of this encounter
--- OUTSIDE RECORDS SUMMARY | 2024-04-20 01:06 | XMS_ITS | Encounter Summary ---
Author Organization [facility] Address [address] [place] [address] Care Team Providers Care Prototype Fabricator Name Role Phone Ronald Lam DO Primary Care Provider [phone] Encounter Details Date Type Department Care Team (Late st Contact Info) Description 02/17/2020 Telephone [facility] Cardiology [address] [place] [address] Jessica Hollins NP [address] [place] [address] Social History Tobacco Use Types Packs/Day Years Used Date Smoking Tobacco: Never Smokeless Tobacco: Never Alcohol Use Standard Drinks/Week Comments Not Currently 0 (1 standard drink = 0.6 oz pur e alcohol) Sex and Gender Information Value Date Recorded Sex Assigned at Not on file Legal Sex Male 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 Pt said today his BP is 145/87 and 135/88. Pt said last week his reading ranged from 130-150's. Advised pt to cont to check his BP daily about an hour after his meds and to keep a log and to call us if he see's a rising trend in his BP. Discussed with CT and she agreed. * Telephone Encounter - Nisa Dugan - 02/24/2020 8:46 AM CDT Pt has requested a return call to discuss his BP readings [phone] * Telephone Encounter - Anabell Minor RN - 02/17/2020 9:33 AM CDT See other note * Telephone Encounter - Indira Krishnamurthy - 02/17/2020 8:39 AM CDT Pt called to discuss his bp readings with Jessica Hollins this morning. documented in this encounter Plan of Treatment Not on file documented as of this encounter Visit Diagnoses Not on filedocumented in this encounter Care Teams Prototype Fabricator Relationship Specialty Start Date End Date Ronald Lam DO PCP - General 07/07/18 documented as of this encounter
--- OUTSIDE RECORDS SUMMARY | 2024-04-20 01:07 | XMS_ITS | Encounter Summary ---
Author Organization [facility] Address [address] [place] [address] Care Team Providers Care Director Economic Name Role Phone Ronald Lam DO Primary Care Provider [phone] Encounter Details Date Type Department Care Team (Late st Contact Info) Description 07/07/2019 Telephone [facility] Cardiology [address] [place] [address] Hector Desai MD [address] [phone] Social History Tobacco Use Types Packs/Day Years Used Date Smoking Tobacco: Never Smokeless Tobacco: Never Alcohol Use Standard Drinks/Week Comments Not Currently 0 (1 standard drink = 0.6 oz pur e alcohol) Sex and Gender Information Value Date Recorded Sex Assigned at Not on file 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 Gender Identity Not on file Sexual Orientation Not on file documented as of this encounter Ordered Prescriptions Prescription Sig Dispense Quantity Refills Last Filled Start Date End Date apixaban (ELIQUIS) 5 mg tablet Take 1 tablet (5 mg total) by mouth 2 (two) times a day 180 tablet 2 08/05/2019 06/08/2020 documented in this encounter Miscellaneous Notes * Addendum Note - Nicole Wright MA - 08/05/2019 1:49 PM CDTAddended by: NICOLE WRIGHT on: 08/05/2019 01:49 PM Modules accepted: Orders * Telephone Encounter - Nicole Wright MA - 08/05/2019 1:18 PM CDT Eliquis for a 30 day supply is $42 and for a 90 day supply is $126. Xarelto for a 30 day supply is $42 and for a 90 day supply is $126. Pradaxa for a 30 day supply is $181.56 and for a 90 day supply is $506.83. I went over this information with the patient and he said he would prefer to stay with the Eliquis since he has already been taking it there's no reason to switch. * Telephone Encounter - Hector Desai MD - 07/27/2019 12:46 PM CDT Check if he has coverage for Xarelto or Pradaxa * Telephone Encounter - Nicole Wright MA - 07/26/2019 1:43 PM CDT Eliquis was denied due to no eligible lower tier formulary alternatives for the condition . What would you like to do? * Telephone Encounter - Nicole Wright MA - 07/13/2019 3:33 PM CDT Paperwork received, filled out and faxed. * Telephone Encounter - Genesis Ramirez MA - 07/07/2019 4:27 PM CST Forward to BJ VAULT CLERK * Telephone Encounter - Indira Krishnamurthy - 07/07/2019 2:52 PM CST Pt called to report [employer] will be sending Dr. Desai some forms for him to fill out for pt to get his eliquis 5 mg tabs at a discounted rate. cb [phone] VAULT CLERK documented in this encounter Plan of Treatment Not on file documented as of this encounter Visit Diagnoses Not on filedocumented in this encounter Discontinued Medications Medication Sig Discontinue Reason Start Date End Da te apixaban (ELIQUIS) 5 mg tablet Take 1 tablet (5 mg total) by mouth 2 (two) times a day Reorder 03/16/2019 08/05/2019 documented as of this encounter Care Teams Director Economic Relationship Specialty Start Date End Date Ronald Lam DO PCP - General 07/07/18 documented as of this encounter
--- OUTSIDE RECORDS SUMMARY | 2024-04-20 01:07 | XMS_ITS | Encounter Summary ---
Author Organization [facility] Address [address] [place] [address] Care Team Providers Care Glass Lathe Operator Name Role Phone Ronald Lam DO Primary Care Provider [phone] Reason for Visit * Reason Comments Follow-up CAd,PAF Encounter Details Date Type Department Care Team (Late st Contact Info) Description 05/18/2019 10:45 AM ROOMING HOUSE INSPECTOR Office Visit [facility] Cardiology [address] [place] [address] Hector Desai MD [address] [id number] Coronary artery disease involving [place] coronary artery of [place] heart without angina pectoris (Primary Dx); Status post angioplasty with stent; PAF (paroxysmal atrial fibrillation) (CMS/HCC); LBBB (left bundle branch block); Essential hypertension; Chronic anticoagulation; Chronic kidney disease, unspecified CKD stage Social History Tobacco Use Types Packs/Day Years Used Date Smoking Tobacco: Never Smokeless Tobacco: Never Tobacco Cessation:Counseling Given: Yes Alcohol Use Standard Drinks/Week Comments Not Currently 0 (1 standard drink = 0.6 oz pur e alcohol) Sex and Gender Information Value Date Recorded Sex Assigned at Not on file Legal Sex Male 12:20 AM ROOMING HOUSE INSPECTOR Gender Identity Not on file Sexual Orientation Not on file documented as of this encounter Last Filed Vital Signs Vital Sign Reading Time Taken Comments Blood Pressure 130/78 05/18/2019 10:39 AM ROOMING HOUSE INSPECTOR Pulse 56 05/18/2019 10:39 AM ROOMING HOUSE INSPECTOR Temperature - - Respiratory Rate - - Oxygen Saturation 98% 05/18/2019 10: 39 AM ROOMING HOUSE INSPECTOR Inhaled Oxygen Concentration - - Weight 117.8 kg (259 lb 12.8 oz) 2019 10:39 AM ROOMING HOUSE INSPECTOR Height 185.4 cm (6' 1 ) 05/18/2019 10:3 9 AM ROOMING HOUSE INSPECTOR Body Mass Index 34.28 05/18/2019 10:39 AM ROOMING HOUSE INSPECTOR documented in this encounter Progress Notes * Hector Desai MD - 05/18/2019 10:45 AM CST [facility] 05/18/2019 CHIEF COMPLAINT Chief Complaint Patient presents with ??? Follow-up CAd,PAF CAD HPI Yosef Chapa is a 73 y.o. male with known CAD, history of remote PCI/stenting of LCX/OM branch; hypertension, CKD stage 3, dyslipidemia, RIOS. ?? Patient was admitted to [facility] on 07/05/2018 with complaints of anginal chest pain with radiation to left arm for last 2-3 weeks. His troponins were negative, EKG showed left bundle branchblock. ??Patient underwent coronary angiogram at [facility] on 07/06/2018 in the setting of unstable [...] aspirin and ticagrelor. ??Patient was transferred to [facility] for another attempt on the intervention. On 07/08/2018, patient underwent PCI - orbital atherectomy of mid RCA using CSI 1.25 mm classic crown orbital atherectomy system, followed by balloon angiop lasty and stenting using a 3.0 x 32 mm everolimus eluting stent. His postprocedure hospital course remained uneventful. 09/01/2018-patient states that he had a follow-up appointment with casting machine operator automatic on 08/18/2018 and was found to have [...] concerned about co-pay is for the anticoagulation. MEDICAL HISTORY CAD, history of remote PCI/stenting of LCX/OM branch; hypertension, CKD stage 3, dyslipidemia, RIOS he has a past surgical history that includes Coronary angioplasty and Hernia repair. he No Known Allergies Current Outpatient Medications Medication Sig Dispense Refill ??? allopurinol (ZYLOPRIM) 300 mg tablet Take 300 mg by mouth daily . ??? apixaban (ELIQUIS) 5 mg tablet Take 1 tablet (5 mg total) by mouth 2 (two) times a day 90 tablet 2 ??? atorvastatin (LIPITOR) 80 mg tablet Take 1 tablet (80 mg total) by mouth daily 90 tablet 3 ??? carvedilol (COREG) 25 mg tablet Take 25 mg by mouth 2 (two) times a day with meals . ??? clopidogrel (PLAVIX) 75 mg tablet Take 1 tablet (75 mg total) by mouth daily 90 tablet 1 ??? dilTIAZem CD/XR/XT (CARDIZEM CD,DILACOR XR) 120 mg 24 hr capsule Take 1 capsule (120 mg total) by mouth daily 30 capsule 11 ??? ezetimibe (ZETIA) 10 mg tablet Take 1 tablet (10 mg total) by mouth daily 90 tablet 3 ??? losartan-hydroCHLOROthiazide (HYZAAR) 100-12.5 mg per tablet Take 1 tablet by mouth daily . ??? multivitamin capsule Take 1 capsule by mouth daily . No current facility-administered medications for this visit. he family history includes Heart attack in his father; Hypertension in his father and mother; No Known Problems in his sister; Stroke in his mother. he reports that he has never smoked. He has never used smokeless tobacco. He reports previous alcohol use. He reports that he does not use drugs. REVIEW OF SYSTEMS General ROS: negative for - Fever, chills, fatigue Psychological ROS: negative for - anxiety, depression Ophthalmic ROS: negative for - blurry vision, loss of vision ENT ROS: negative for - sore throat, epistaxis, headaches, nasal congestion Allergy and Immunology ROS: negative for - hives, postnasal drip or seasonal allergies Hematological and Lymphatic ROS: negative for - bleeding problems, bruising Respiratory ROS: negative for - cough, hemoptysis, wheezing Cardiovascular ROS: negative for - chest pain, positive for occasional palpitations Gastrointestinal ROS: negative for - abdominal pain Endocrine ROS: negative for - hot flashes, polydipsia/polyuria Genito-Urinary ROS: negative for - dysuria, hematuria Musculoskeletal ROS: negative for - joint pain, muscle pain Neurological ROS: negative for - gait disturbance, weakness Dermatological ROS: negative for pruritus, rash LABS AND OTHER DIAGNOSTIC TESTS REVIEWED Lab Results Component Value Date WBC 7.3 07/08/2018 HGB 14.1 07/08/2018 HCT 43.4 07/08/2018 MCV 94.1 07/08/2018 No lab exists for component: LABALBU Lab Results Component Value Date WBC 7.3 07/08/2018 HGB 14.1 07/08/2018 HCT 43.4 07/08/2018 MCV 94.1 07/08/2018 No results found for: CHOL No results found for: HDL No results found for: LDL] No results found for: TRIG Cardiac catheterization- patent LCX/om stent; high-grade, subtotal calcific complex stenosis in themid RCA with the extremity tortuous segment just proximal to the stenosis. 07/06/2018 Catheterization/PCI- High-grade, approximately 90-95% calcific stenosis mid RCA with very tortuous segment proximal to the stenosis. Very complex PCI-orbital atherectomy of mid RCA using CSI 1.25 mm classic crown orbital atherectomy system, followed by balloon angioplasty and stenting using a 3.0 x32 mm everolimus eluting stent with good angiographic results. 07/08/2018 EKG-atrial fibrillation with RVR, heart rate 122 beats per minute, left bundle branch block. 08/18/18 Lipid panel-total cholesterol 166, HDL 32, triglycerides 260, LDL 81. 09/01/2018 EKG-sinus rhythm, heart rate 74 beats per minute, left bundle branch block chronic. 09/01/2018 Lipid panel-total cholesterol 173, HDL 33, triglycerides 192, LDL 101. 12/08/2018 Lipid panel-total cholesterol 129, HDL 33, triglycerides 195, LDL 57. 05/18/2019 PHYSICAL EXAM Vitals BP 130/78 (BP Location: Right arm, Patient Position: Sitting) Pulse 56 Ht 185.4 cm (6' 1 ) Wt 117.8 kg (259 lb 12.8 oz) SpO2 98% BMI 34.28 kg/m?? General appearance - alert, no distress, oriented to time, place, person Mental status - affect appropriate to mood Eyes - extraocular eye movements intact, no pallor Ears - external ears appear normal, hearing grossly normal Nose - normal and patent, no discharge Mouth - mucous membranes moist, tongue normal Neck - supple, carotids upstroke normal bilaterally, no bruits, no JVD Chest - clear to auscultation Heart - normal rate, regular rhythm at present, normal S1, S2, no audible murmurs Abdomen - soft, nontender, nondistended, bowel sounds present Neurological - alert, oriented, normal speech, no gross motor deficits Musculoskeletal - no major deformity, no amputations Extremities - no pedal edema, no clubbing or cyanosis Skin - no rashes (on the exposed areas), no cyanosis ASSESSMENT Diagnoses and all orders for this visit: Coronary artery disease involving [place] coronary artery of [place] heart without angina pectoris (Primary) Status post angioplasty with stent PAF (paroxysmal atrial fibrillation) ([facility]/HCC) LBBB (left bundle branch block) Essential hypertension Chronic anticoagulation Chronic kidney disease, unspecified CKD stage PLAN/RECOMMENDATIONS 73-year-old male with CAD, history of remote PCI/stenting of LCX/OM branch; hypertension, CKD stage3, dyslipidemia, RIOS. Patient is status post complex PCI on 07/08/2018 with orbital atherectomy followed by balloon angioplasty and stenting using a 3.0 x 32 mm everolimus eluting stent (07/08/2018). Patient had resolution of angina after PCI. - relatively stable from cardiac standpoint. Patient has occasional palpitations from PAF. Currently in sinus rhythm. - optimal medical treatment including antiplatelet therapy with clopidogrel. Continue anticoagulation with apixaban. Continue carvedilol, losartan/hydrochlorothiazide, diltiazem. Continue high-intensity statin treatment with atorvastatin 80 mg p.o. Q.h.s.. LDL improved to 57 on today's labs from previous level of 101 after additional ezetimibe 10 mg daily. - Counseling was done for heart healthy diet, aerobic exercise at least 5 times a week, Medication compliance. More than 50% of the time was spent on counseling. - RTC approximately 12 months or sooner if needed. Hector Desai MD ING HOUSE INSPECTOR documented in this encounter Miscellaneous Notes * Addendum Note - Mariaa Couch MA - 05/18/2019 10:45 AM CSTAddended by: MARIAA COUCH on: 05/18/2019 05:26 PM Modules accepted: Orders ING HOUSE INSPECTOR documented in this encounter Plan of Treatment Not on file documented as of this encounter Procedures Procedure Name Priority Date/Time Associated Diagnosis Comments POCT LIPID PANEL Routine 05/19/2019 10:2 3 AM ROOMING HOUSE INSPECTOR Coronary artery disease involving [place] coronary artery of [place] heart without angina pectoris documented in this encounter Results * POCT lipid panel (05/19/2019 10:23 AM ROOMING HOUSE INSPECTOR) Cholesterol, POC 129 mg/dL HDL, POC 33 mg/dL Triglycerides, POC 195 mg/dL LDL Cholesterol POC 57 mg/dL Chol/HDL Ratio, POC 3.9 Non-HDL Cholesterol, POC 96 mg/dL Cholesterol Total, POC 129 mg/dL Blood specimen (specimen) 05/19/2019 10:23 AM ROOMING HOUSE INSPECTOR Hector Desai MD POINT OF CARE TEST ORDERABLES Fi nal Result documented in this encounter Visit Diagnoses Diagnosis Coronary artery disease involving [place] coronary artery of [place] heart without angina pectoris- Primary Status post angioplasty with stent Postsurgical percutaneous transluminal coronary angioplasty status PAF (paroxysmal atrial fibrillation) (CMS/HCC) (HCC) Atrial fibrillation LBBB (left bundle branch block) Other left bundle branch block Essential hypertension Unspecified essential hypertension Chronic anticoagulation Encounter for long-term (current) use of anticoagulants Chronic kidney disease, unspecified CKD stage documented in this encounter Care Teams Glass Lathe Operator Relationship Specialty Start Date End Date Ronald aLm DO PCP - General 07/07/18 documented as of this encounter
--- OUTSIDE RECORDS SUMMARY | 2024-04-20 01:07 | XMS_ITS | Encounter Summary ---
Author Organization [facility] Address [address] [address] Care Team Providers Care Healthcare Recruiter Name Role Phone Ronald Lam DO Primary Care Provider [phone] Reason for Visit * Reason Onset Date Comments echocardiogram results reviewed 09/14/2019 Encounter Details Date Type Department Care Team (Late st Contact Info) Description 09/14/2019 Telephone [facility] Cardiology [address] [place] [phone] Hector Desai MD [address] [place] [id number] echocardiogram results reviewed Social History Tobacco Use Types Packs/Day Years Used Date Smoking Tobacco: Never Smokeless Tobacco: Never Alcohol Use Standard Drinks/Week Comments Not Currently 0 (1 standard drink = 0.6 oz pur e alcohol) Sex and Gender Information Value Date Recorded Sex Assigned at Not on file Legal Sex Male 12:20 AM INVESTMENT ACCOUNTING CLERK Gender Identity Not on file Sexual Orientation Not on file documented as of this encounter Miscellaneous Notes * Telephone Encounter - Crystal Richmond RN - 09/14/2019 10:38 AM CDT ----- Message from Hector Desai MD sent at 09/14/2019 10:21 AM CDT ----- Please call patient and let him know that his overall heart function is normal, although he has thickening of the heart muscle, mild enlargement and impairment in the relaxation of the heart which isrelated to his known coronary disease, and high blood pressure. Continue medical treatment including strict blood pressure control. Follow-up as previously scheduled. I called the patient and left a voicemail message stating the above message and requesting a returncall to the office with any questions. documented in this encounter Plan of Treatment Not on file documented as of this encounter Visit Diagnoses Not on filedocumented in this encounter Care Teams Healthcare Recruiter Relationship Specialty Start Date End Date Ronald Lam DO PCP - General 07/07/18 documented as of this encounter
--- OUTSIDE RECORDS SUMMARY | 2024-04-20 01:07 | XMS_ITS | Encounter Summary ---
Author Organization [facility] Address [address] [place] [address] Care Team Providers Care Special Education Paraprofessional Name Role Phone Ronald Lam DO Primary Care Provider [phone] Doanld Ugalde CELL OPERATOR Unavailable Mary Kate Ochoa DNP Unavailable Tucker Fry CELL OPERATOR Unavailable Encounter Details Date Type Department Care Team (Late st Contact Info) Description 09/01/2018 Telephone [facility] [address] [address] Hector Desai MD [address] [place] [id number] Social History Tobacco Use Types Packs/Day Years Used Date Smoking Tobacco: Never Smokeless Tobacco: Never Alcohol Use Standard Drinks/Week Comments Not Currently 0 (1 standard drink = 0.6 oz pur e alcohol) Sex and Gender Information Value Date Recorded Sex Assigned at Not on file Legal Sex Male 12:20 AM CUSTOMER SUCCESS ADVOCATE Gender Identity Not on file Sexual Orientation Not on file documented as of this encounter Miscellaneous Notes * Telephone Encounter - Darling Toussaint RN - 09/01/2018 4:35 PM CDT Left message for Fina stating that as soon as the form is signed by physician it will be faxed over. * Telephone Encounter - Verónica Dietrich - 09/01/2018 4:32 PM CDT Mamie called again about release for routine dental care. * Telephone Encounter - Darling Toussaint RN - 09/01/2018 11:27 AM CDT Spoke with Mamie, dental office is needing a release for routine dental cleanings. Will review with Dr. Desai. * Telephone Encounter - Ashleigh Whyte - 09/01/2018 10:59 AM CDT Pt is currently at the dentist office for his normal routine visit. Mamie with the dentist office wants to know if there's any precaution they need to take. Mamie cb [phone] documented in this encounter Plan of Treatment Not on file documented as of this encounter Visit Diagnoses Not on filedocumented in this encounter Care Teams Special Education Paraprofessional Relationship Specialty Start Date End Date Ronald Lam DO PCP - General 07/07/18 Donald Ugalde MSW [address] [facility] [address] [place] [address] [facility] Outpatient Armor Reconnaissance Specialist 07/12/18 09/12/18 Mary Kate Ochoa DNP [phone] [facility] [address] [place] [address] Nurse Practitioner Internal Medicine 07/12/18 09/12/18 Tucker Fry, CELL OPERATOR [id number] [facility] [address] [place] [address] [facility] Outpatient Armor Reconnaissance Specialist 07/12/18 09/12/18 documented as of this encounter
--- OUTSIDE RECORDS SUMMARY | 2024-04-20 01:07 | XMS_ITS | Encounter Summary ---
Author Organization [facility] Address [address] [place] [address] Care Team Providers Care Tie Fastener Name Role Phone Ronald Lam DO Primary Care Provider [phone] Donald Ugalde TECHNICAL PHOTOGRAPHER Unavailable Mary Kate Ochoa DNP Unavailable [phone] Tucker Fry TECHNICAL PHOTOGRAPHER Unavailable Reason for Visit * Reason Comments Atrial Fibrillation Encounter Details Date Type Department Care Team (Late st Contact Info) Description 09/01/2018 2:00 PM CDT Office Visit [facility] [address] [place] [address] Hector Desai MD [address] [address] Coronary artery disease involving napaimute coronary artery of napaimute heart without angina pectoris (Primary Dx); Status [...] on file 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 Gender Identity Not on file Sexual Orientation Not on file documented as of this encounter Last Filed Vital Signs Vital Sign Reading Time Taken Comments Blood Pressure 126/72 09/01/2018 2:02 PM CDT Pulse 65 09/01/2018 2:02 PM CDT Temperature - - Respiratory Rate - - Oxygen Saturation 96% 09/01/2018 2:02 PM CDT Inhaled Oxygen Concentration - - Weight 118.4 kg (261 lb) 09/01/2018 2:02 PM CDT Height 185.4 cm (6' 1 ) 09/01/2018 2:02 PM CDT Body Mass Index 34.43 09/01/2018 2:02 PM CDT documented in this encounter Ordered Prescriptions Prescription Sig Dispense Quantity Refills Last Filled Start Date End Date atorvastatin (LIPITOR) 80 mg tablet Take 1 tablet (80 mg total) by mouth daily 90 tablet 3 09/01/2018 07/12/2019 atorvastatin (LIPITOR) 80 mg tablet Take 1 tablet (80 mg total) by mouth daily 30 tablet 11 09/01/2018 09/01/2018 documented in this encounter Progress Notes * Hector Desai MD - 09/01/2018 2:00 PM CDT [facility] 09/01/2018 CHIEF COMPLAINT Chief Complaint Patient presents with ??? Atrial Fibrillation CAD HPI Yosef Chpaa is a 72 y.o. male with known CAD, history of remote PCI/stenting of LCX/OM branch; hypertension, CKD stage 3, dyslipidemia, RIOS. ?? Patient was admitted to [facility] on 07/05/2018 with complaints of anginal chest pain with radiation to left arm for last 2-3 weeks. His troponins were negative, EKG showed left bundle branchblock. ??Patient underwent coronary angiogram at [facility] on 07/06/2018 in the setting of [...] aspirin and ticagrelor. ??Patient was transferred to [facility] for another attempt on the intervention. On 07/08/2018, patient underwent PCI - orbital atherectomy of mid RCA using CSI 1.25 mm classic crown orbital atherectomy system, followed by balloon angiop lasty and stenting using a 3.0 x 32 mm everolimus eluting stent. His postprocedure hospital course remained uneventful. 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 He was sent to our clinic and his EKG showed atrial fibrillation with RVR with underlying [...] been concerned about the martinez of apixaban. MEDICAL HISTORY CAD, history of remote PCI/stenting [...] by mouth 2 (two) times a day 60 tablet 3 ??? aspirin 81 mg tablet Take 1 tablet (81 mg total) by mouth daily 30 tablet 11 ??? carvedilol (COREG) 25 mg tablet Take 25 mg by mouth 2 (two) times a day with meals . ??? clopidogrel (PLAVIX) 75 mg tablet TAKE 4 TABLETS BY MOUTH THE FIRST DAY, THEN TAKE 1 TABLET BY MOUTH DAILY THERAFTER 93 tablet 1 ??? dilTIAZem CD/XR/XT (CARDIZEM CD,DILACOR XR) 120 mg 24 hr capsule Take 1 capsule (120 mg total) by mouth daily 30 capsule 11 ??? losartan-hydroCHLOROthiazide (HYZAAR) 100-12.5 mg per tablet Take 1 tablet by mouth daily . ??? multivitamin capsule Take 1 capsule by mouth daily . ??? atorvastatin (LIPITOR) 80 mg tablet Take 1 tablet (80 mg total) by mouth daily 30 tablet 11 No current facility-administered medications for this visit. he family history includes Heart attack in his father; Hypertension in his father and mother; No Known Problems in his sister; Stroke in his mother. he reports that he has never smoked. He has never used smokeless tobacco. He reports that he drank alcohol. He reports that he does not use [...] Cardiovascular ROS: negative for - chest pain, dyspnea, edema, Syncope, palpitations, orthopnea/PND Gastrointestinal ROS: negative for - abdominal pain, blood in stools, hematemesis, nausea/vomiting Endocrine ROS: negative for - hot flashes, [...] minute, left bundle branch block chronic. 09/01/2018 PHYSICAL EXAM Vitals BP 126/72 (BP Location: Right arm, Patient Position: Sitting) Pulse 65 Ht 185.4 cm (6' 1 ) Wt 118.4 kg (261 lb) SpO2 96% BMI 34.43 kg/m?? General appearance - alert, no distress, [...] for this visit: Coronary artery disease involving napaimute coronary artery of napaimute heart without angina pectoris (Primary) Status post angioplasty with stent PAF (paroxysmal atrial fibrillation) (CMS/HCC) LBBB (left bundle branch block) Essential hypertension Chronic anticoagulation Chronic kidney disease, unspecified CKD stage Other orders - atorvastatin (LIPITOR) 80 mg tablet; Take 1 tablet (80 mg total) by mouth daily PLAN/RECOMMENDATIONS 72-year-old male with CAD, history of remote PCI/stenting of LCX/OM branch; hypertension, CKD stage3, dyslipidemia, RIOS. Patient is status post complex PCI on 07/08/2018 with orbital atherectomy followed by balloon angioplasty and stenting using a 3.0 x 32 mm everolimus eluting stent. Patient had resolution of angina after PCI. Recently found to have atrial fibrillation with RVR, currently in sinus rhythm. EKG performed in the clinic today which I personally evaluated showed sinus rhythm, chronic left bundle branch block. - patient is stable from cardiac standpoint at present. - optimal medical treatment including dual antiplatelet therapy with low-dose aspirin and clopidogrel. Will consider discontinuing aspirin on follow-up visit, and continue clopidogrel and apixaban. Continue carvedilol, losartan/hydrochlorothiazide, diltiazem. Optimize statin treatment, change simvastatin to atorvastatin 80 mg p.o. Q.h.s.. LDL from today 09/01/2018 is 81. Target LDL less than 70. Will recheck lipid panel on follow-up visit. - Counseling was done for heart healthy diet, aerobic exercise at least 5 times a week, Medication compliance. More than 50% of the time was spent on counseling. - RTC 3 months or sooner if needed. Hector Desai MD documented in this encounter Miscellaneous Notes * Addendum Note - Nicole Wright MA - 09/01/2018 2:00 PM CDTAddended by: NICOLE WRIGHT on: 09/01/2018 03:07 PM Modules accepted: Orders documented in this encounter Plan of Treatment Not on file documented as of this encounter Procedures Procedure Name Priority Date/Time Associated Diagnosis Comments POCT LIPID PANEL Routine 09/01/2018 3:07 PM CDT Coronary artery disease involving napaimute coronary artery of napaimute heart without angina pectoris ECG 12-LEAD Routine 09/01/2018 PAF (paroxysmal atrial fibrillation) ([facility]) LBBB (left bundle branch block) documented in this encounter Results * POCT lipid panel (09/01/2018 3:07 PM CDT) Cholesterol, POC 166 mg/dL HDL, POC 32 mg/dL Triglycerides, POC 260 mg/dL LDL Cholesterol POC 81 mg/dL Chol/HDL Ratio, POC 5.1 Non-HDL Cholesterol, POC 133 mg/dL Cholesterol Total, POC 166 mg/dL Blood specimen (specimen) 09/01/2018 3:07 PM CDT us Hector Desai MD POINT OF CARE TEST ORDERABLES Fi nal Result * ECG 12 lead (09/01/2018) us Hector Desai MD ECG ORDERABLES Final Result documented in this encounter Visit Diagnoses Diagnosis Coronary artery disease involving napaimute coronary artery of napaimute heart without angina pectoris- Primary Status post angioplasty with stent Postsurgical percutaneous transluminal coronary angioplasty status PAF (paroxysmal atrial fibrillation) (CMS/HCC) (HCC) Atrial fibrillation LBBB (left bundle branch block) Other left bundle branch block Essential hypertension Unspecified essential hypertension Chronic anticoagulation Encounter for long-term (current) use of anticoagulants Chronic kidney disease, unspecified CKD stage documented in this encounter Discontinued Medications Medication Sig Discontinue Reason Start Date End Da te acetaminophen (TYLENOL) 325 mg tablet Take 2 tablets (650 mg total) by mouth every 6 (six) hours as needed for pain Discontinued by another clinician 07/09/2018 09/01/2018 temazepam (RESTORIL) 7.5 mg capsuleIndications:Ins omnia Take 1 capsule (7.5 mg total) by mouth nightly as needed for sleep Discontinued by another clinician 07/09/2018 09/01/2018 simvastatin (ZOCOR) 40 mg tablet Take 40 mg by mouth nightly . 09/01/2018 atorvastatin (LIPITOR) 80 mg tablet Take 1 tablet (80 mg total) by mouth daily Reorder 09/01/2018 09/01/2018 documented as of this encounter Care Teams Tie Fastener Relationship Specialty Start Date End Date Ronald Lam DO PCP - General 07/07/18 Donald Ugalde, DONG [address] [place] [address] [facility] Outpatient Chute Boss 07/12/18 09/12/18 Mary Kate Ochoa, STUART [address] [place] [address] Nurse Practitioner Internal Medicine 07/12/18 09/12/18 Tucker Fry, TECHNICAL PHOTOGRAPHER [id number] [facility] [address] [id number] [facility] Outpatient Chute Boss 07/12/18 09/12/18 documented as of this encounter
--- OUTSIDE RECORDS SUMMARY | 2024-04-20 01:07 | XMS_ITS | Encounter Summary ---
Author Organization [facility] Address [address] [place] [address] Care Team Providers Care Polishing Machine Operator Helper Name Role Phone Ronald Lam DO Primary Care Provider [phone] Encounter Details Date Type Department Care Team (Late st Contact Info) Description 11/30/2019 Telephone [facility] Cardiology [address] [place] [address] Hector Desai MD [address] [id number] Social History Tobacco Use Types Packs/Day Years Used Date Smoking Tobacco: Never Smokeless Tobacco: Never Alcohol Use Standard Drinks/Week Comments Not Currently 0 (1 standard drink = 0.6 oz pur e alcohol) Sex and Gender Information Value Date Recorded Sex Assigned at Not on file 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 All questions answered. * Telephone Encounter - Yessy Indira - 12/06/2019 1:18 PM CDT Pt's daughter called back to speak with Nikki KERNS. * Telephone Encounter - Darling Toussaint RN - 12/02/2019 1:18 PM CDT Faxed AC hold form to Dr. Moffett at [phone]. Left message for patient relaying Dr. Aguila message. Informed him that Dr. Moffett should advise him whether to hold it 2 or three days prior to procedure. * Telephone Encounter - Hector Desai MD - 12/02/2019 1:05 PM CDT Okay to hold apixaban 2 days before the procedure. If bleeding risk is high, may hold for 3 days prior to procedure. * Telephone Encounter - Darling Toussaint RN - 12/02/2019 12:18 PM CDT Patient called to update us that his prostate biopsy is scheduled for 12/21/[address] Moffett. Willforward to to both Dr. Desai and MASON Lopez to see if okay to hold eliquis prior to biopsy. * Telephone Encounter - Indira Krishnamurthy - 12/02/2019 11:55 AM CDT Pt called to discuss the hold on his eliquis 5 mg tabs for his prostate surgery. * Telephone Encounter - Darling Toussaint RN - 11/30/2019 9:[address] Desai, is it okay to hold eliquis for prostate biopsy? * Telephone Encounter - Nisa Dugan - 11/30/2019 8:19 AM CDT Pt has requested a return call to discuss holding the Eliquis medication due to him having a Prostate biopsy. Pt has not yet scheduled this procedure. Pt has requested a return call to discuss. [phone] documented in this encounter Plan of Treatment Not on file documented as of this encounter Visit Diagnoses Not on filedocumented in this encounter Care Teams Polishing Machine Operator Helper Relationship Specialty Start Date End Date Ronald Lam DO PCP - General 07/07/18 documented as of this encounter
--- OUTSIDE RECORDS SUMMARY | 2024-04-20 01:07 | XMS_ITS | Encounter Summary ---
Author Organization [facility] Address [address] [place] [address] Care Team Providers Care Patient Access Director Name Role Phone Ronald Lam DO Primary Care Provider [phone] Donald Ugalde GROUP CARE WORKER Unavailable [phone] Mary Kate Ochoa DNP Unavailable Tucker Fry GROUP CARE WORKER Unavailable Encounter Details Date Type Department Care Team (Late st Contact Info) Description 08/19/2018 Telephone [facility] [address] [place] [address] Hector Desai MD [address] [address] Social History Tobacco Use Types Packs/Day Years Used Date Smoking Tobacco: Never Smokeless Tobacco: Never Alcohol Use Standard Drinks/Week Comments Not Currently 0 (1 standard drink = 0.6 oz pur e alcohol) Sex and Gender Information Value Date Recorded Sex Assigned at Not on file 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 Gender Identity Not on file Sexual Orientation Not on file documented as of this encounter Ordered Prescriptions Prescription Sig Dispense Quantity Refills Last Filled Start Date End Date apixaban (ELIQUIS) 5 mg tablet Take 1 tablet (5 mg total) by mouth 2 (two) times a day 60 tablet 3 08/19/2018 9 dilTIAZem CD/XR/XT (CARDIZEM CD,DILACOR XR) 120 mg 24 hr capsule Take 1 capsule (120 mg total) by mouth daily 30 capsule 11 08/19/2018 0 documented in this encounter Miscellaneous Notes * Telephone Encounter - Aleisha Kaur RN - 08/19/2018 1:[address] Desai, He is in atrial fibrillation with RVR. ??We need to control his heart rate. ??Review of medications show that he is on carvedilol. ??Add diltiazem CD 1 20 mg daily if his blood pressurewas okay in the office. ??Also he needs to be on anticoagulation. ??Start apixaban 5 mg twice a day. ??Patient recently had a stent, for now continue dual antiplatelet therapy. ??I would like to see the patient soon in the clinic and readjust his medications. Pt notified , meds sent to pharmacy. Gave mine captain ppt to be seen in early September documented in this encounter Plan of Treatment Not on file documented as of this encounter Visit Diagnoses Not on filedocumented in this encounter Discontinued Medications Medication Sig Discontinue Reason Start Date End Da te dilTIAZem CD/XR/XT (CARDIZEM CD,DILACOR XR) 120 mg 24 hr capsule Take 1 capsule (120 mg total) by mouth daily Reorder 08/19/2018 08/19/2018 apixaban (ELIQUIS) 5 mg tablet Take 1 tablet (5 mg total) by mouth 2 (two) times a day Reorder 08/19/2018 08/19/2018 documented as of this encounter Care Teams Patient Access Director Relationship Specialty Start Date End Date Ronald Lam DO PCP - General 07/07/18 Donald Ugalde MSW [address] [place] [address] [facility] Outpatient Screen Printing Cloth Spreader 07/12/18 09/12/18 Mary Kate Ochoa DNP [address] [place] [id number] Nurse Practitioner Internal Medicine 07/12/18 09/12/18 Tucker Fry, GROUP CARE WORKER [address] [address] [facility] Outpatient Screen Printing Cloth Spreader 07/12/18 09/12/18 documented as of this encounter
--- OUTSIDE RECORDS SUMMARY | 2024-04-20 01:07 | XMS_ITS | Encounter Summary ---
Author Organization [facility] Address [address] [place] [address] Care Team Providers Care Zoology Technical Officer Name Role Phone Ronald Lam DO Primary Care Provider [phone] Reason for Visit * (Routine) - Closed Specialty Diagnoses / Procedures Referred By Contbonnie t Referred To Contact Diagnoses Essential hypertension Procedures Transthoracic Echo Complete W Doppler/CF Giovany Fernando MD [address] [address] Phone: tel: fax: [facility] Referral ID Status Reason Start Date Expiration Date Visits Re quested Visits Authorized [id number] Closed 08/22/2019 03/02/2021 1 1 Encounter Details Date Type Department Care Team (Latest Contact Info) Description 09/13/2019 11:15 AM CDT Ancillary Procedure [facility] Cardiology [address] [address] [address] [place] [address] Essential hypertension Social History Tobacco Use Types Packs/Day Years Used Date Smoking Tobacco: Never Smokeless Tobacco: Never Alcohol Use Standard Drinks/Week Comments Not Currently 0 (1 standard drink = 0.6 oz pur e alcohol) Sex and Gender Information Value Date Recorded Sex Assigned at Not on file 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 Gender Identity Not on file Sexual Orientation Not on file documented as of this encounter Plan of Treatment Not on file documented as of this encounter Procedures Procedure Name Priority Date/Time Associated Diagnosis Comments TRANSTHORACIC ECHO (TTE) COMPLETE W DOPPLER/CF W CONTRAST Routine 09/13/2019 12:57 PM CDT Essential hypertension documented in this encounter Results * TRANSTHORACIC ECHO (TTE) COMPLETE W DOPPLER/CF W CONTRAST (09/13/2019 12:57 PM CDT) Anatomical Region Laterality Modality Ultrasound 09/13/2019 10:0 6 AM CDT Narrative 09/13/2019 2:59 PM CDT [facility] Cardiology [address], [place] [address] [address] [facility] [address], [place] [address] P:[phone] P:[phone] Echocardiographic Report Patient Name: SHANON BROWN : 1945 Study Date: 09/13/2019 10:06:27 AM Gender: M Tech: Location: [place] Ref.Provider: JULIO CESAR Height(Cm): 185 BSA: 2.4 Weight(Kg): 117.48 Heart Rate: 51 BP: 144/80 Quality: Definity contrast agent used to enhance endocardial border definition Order Provider: GIOVANY FERNANDO Procedures: Echocardiographic Report: Transthoracic echocardiogram with complete 2D, M-Mode, color Doppler examination and Definity contrast. Indications: Hypertension. Measurements: 2D/M Mode Doppler Measurement Value Normal Range Measurement Value Normal Range EF Mod 65 ??AV Mean PG 4 mmHg EF MM 45 [ 55 - 70 ] % AV Peak Andre 1.21 m/s LVIDd MM 5.59 [ 3.90 - 5.30 ] cm AV Peak PG 6 mmHg LVIDs MM 4.31 [ 2.30 - 3.90 ] cm AV VTI 0.28 cm LVPWd MM 1.47 [ 0.60 - 1.00 ] cm LVOT Peak Andre 0.81 [ 0.70 - 1.10 ] m/s IVSd MM 1.47 [ 0.60 - 0.90 ] cm LVOT VTI 0.19 cm LA Dimension MM 5.77 [ 2.70 - 3.80 ] cm MV E Peak Andre 0.48 [ 0.60 - 1.30 ] m/s AoR Diam MM 4.22 [ 2.60 - 3.70 ] cm MV A Peak Andre 1.03 [ 0.40 - 0.80 ] m/s LA Volume Index 45.00 [ 16.00 - 28.00 ] cc/m2 MV Decel Time 384 [ 150 - 200 ] msec ACS MM 2.57 cm PV Peak Andre 1.03 [ 0.40 - 0.80 ] m/s TR Peak Andre 2.68 [ 0.40 - 0.80 ] m/s TR Peak PG 29 mmHg RVSP 37.00 mmHg E' 0.05 E/E' 10 Findings: Interpretation Site: Exam was interpreted at [facility]. Left Ventricle: Definity contrast agent used to visually enhance endocardial wall motion and contractility. Lot Number: [id number]. Moderate concentric left ventricular hypertrophy. Mild enlargement of left ventricle cavity. Paradoxical septal motion consistent with IVCD or bundle branch block. Impaired diastolic relaxation Grade I. Ejection fraction is visually estimated at 55 %. Right Ventricle: The right ventricle is not well visualized. Left Atrium: There is moderate enlargement of left atrium. Right Atrium: The right atrium is normal in size. Atrial Septum: Normal atrial septum. Mitral Valve: Mitral valve leaflets appear mildly thickened. Trivial regurgitation of the mitral valve. There is no hemodynamically significant mitral stenosis by Doppler. Aortic Valve: No evidence of hemodynamically significant aortic stenosis by Doppler. Aortic cusps appear mildly sclerotic. Trileaflet aortic valve. Trace aortic valve regurgitation. Tricuspid Valve: Normal appearance of the tricuspid valve. Mild pulmonary hypertension based on right ventricular systolic pressure. Estimated peak RVSP is 37 mmHg. Mild tricuspid regurgitation. Pulmonic Valve: Normal appearance of the pulmonic valve. No pulmonic stenosis. Mild pulmonic regurgitation. Pericardium: Normal pericardium with no significant pericardial effusion. Aorta: Sinus of Valsalva is dilated. The aortic root is dilated. IVC: The IVC is not well visualized. Conclusions: Definity contrast agent used to visually enhance endocardial wall motion and contractility. Lot Number: [id number]. Moderate concentric left ventricular hypertrophy. Mild enlargement of left ventricle cavity. Paradoxical septal motion consistent with IVCD or bundle branch block. Impaired diastolic relaxation Grade I. Ejection fraction is visually estimated at 55 %. There is moderate enlargement of left atrium. Mitral valve leaflets appear mildly thickened. Mild pulmonary hypertension based on right ventricular systolic pressure. Estimated peak RVSP is 37 mmHg. Mild tricuspid regurgitation. Mild pulmonic regurgitation. Sinus of Valsalva is dilated. The aortic root is dilated. Normal sinus rhythm. Electronically Signed By: Gab Barlow MD 2019-09-13 14:59:34 CDT Procedure Note Gab Barlow MD - 09/13/2019 [facility] Cardiology [address], [place] [address] [address] [facility] [address], [place] [address] P:[phone] P:[phone] Echocardiographic Report Patient Name: SHANON BROWN : 1945 Study Date: 09/13/2019 10:06:27 AM Gender: M Tech: Location: [place] Ref.Provider: JULIO CESAR Height(Cm): 185 BSA: 2.4 Weight(Kg): 117.48 Heart Rate: 51 BP: 144/80 Quality: Definity contrast agent used to enhance endocardial borderdefinition Order Provider: GIOVANY FERNANDO Procedures: Echocardiographic Report: Transthoracic echocardiogram with complete 2D, M-Mode, color Dopplerexamination and Definity contrast. Indications: Hypertension. Measurements: 2D/M Mode Doppler Measurement Value Normal Range Measurement Value Normal Range EF Mod 65 AV Mean PG 4 mmHg EF MM 45 [ 55 - 70 ] % AV Peak Andre 1.21 m/s LVIDd MM 5.59 [ 3.90 - 5.30 ] cm AV Peak PG 6 mmHg LVIDs MM 4.31 [ 2.30 - 3.90 ] cm AV VTI 0.28 cm LVPWd MM 1.47 [ 0.60 - 1.00 ] cm LVOT Peak Andre 0.81 [ 0.70 - 1.10 ] m/s IVSd MM 1.47 [ 0.60 - 0.90 ] cm LVOT VTI 0.19 cm LA Dimension MM 5.77 [ 2.70 - 3.80 ] cm MV E Peak Andre 0.48 [ 0.60 - 1.30 ]m/s AoR Diam MM 4.22 [ 2.60 - 3.70 ] cm MV A Peak Andre 1.03 [ 0.40 - 0.80 ]m/s LA Volume Index 45.00 [ 16.00 - 28.00 ] cc/m2 MV Decel Time 384 [ 150 -200 ] msec ACS MM 2.57 cm PV Peak Andre 1.03 [ 0.40 - 0.80 ] m/s TR Peak Andre 2.68 [ 0.40 - 0.80 ] m/s TR Peak PG 29 mmHg RVSP 37.00 mmHg E' 0.05 E/E' 10 Findings: Interpretation Site: Exam was interpreted at [facility]. Left Ventricle: Definity contrast agent used to visually enhance endocardial wall motionand contractility. Lot Number: [id number]. Moderate concentric left ventricularhypertrophy. Mild enlargement of left ventricle cavity. Paradoxical septal motion consistentwith IVCD or bundle branch block. Impaired diastolic relaxation Grade I. Ejectionfraction is visually estimated at 55 %. Right Ventricle: The right ventricle is not well visualized. Left Atrium: There is moderate enlargement of left atrium. Right Atrium: The right atrium is normal in size. Atrial Septum: Normal atrial septum. Mitral Valve: Mitral valve leaflets appear mildly thickened. Trivial regurgitation ofthe mitral valve. There is no hemodynamically significant mitral stenosis by Doppler. Aortic Valve: No evidence of hemodynamically significant aortic stenosis by Doppler.Aortic cusps appear mildly sclerotic. Trileaflet aortic valve. Trace aortic valveregurgitation. Tricuspid Valve: Normal appearance of the tricuspid valve. Mild pulmonary hypertensionbased on right ventricular systolic pressure. Estimated peak RVSP is 37 mmHg. Mildtricuspid regurgitation. Pulmonic Valve: Normal appearance of the pulmonic valve. No pulmonic stenosis. Mildpulmonic regurgitation. Pericardium: Normal pericardium with no significant pericardial effusion. Aorta: Sinus of Valsalva is dilated. The aortic root is dilated. IVC: The IVC is not well visualized. Conclusions: Definity contrast agent used to visually enhance endocardial wall motionand contractility. Lot Number: [id number]. Moderate concentric left ventricularhypertrophy. Mild enlargement of left ventricle cavity. Paradoxical septal motion consistentwith IVCD or bundle branch block. Impaired diastolic relaxation Grade I. Ejectionfraction is visually estimated at 55 %. There is moderate enlargement of left atrium. Mitral valve leaflets appear mildly thickened. Mild pulmonary hypertension based on right ventricular systolic pressure.Estimated peak RVSP is 37 mmHg. Mild tricuspid regurgitation. Mild pulmonic regurgitation. Sinus of Valsalva is dilated. The aortic root is dilated. Normal sinus rhythm. Electronically Signed By: Gab Barlow MD 2019-09-13 14:59:34 CDT us Giovany Fernando MD CV ECHO PROCEDURES Final Result documented in this encounter Visit Diagnoses Diagnosis Essential hypertension Unspecified essential hypertension documented in this encounter Administered Medications Inactive Administered Medications - up to 3 most recent administrations Medication Order MAR Action Action Date Dose Rate Site perflutren lipid (DEFINITY) 1.5 mL in sodium chloride 0.9% 10 mL syringe 1-10 mL, intravenous, Once in imaging, contrast, Starting on 09/13/19 at 1141, For 1 dose Given 09/13/2019 12:19 PM CDT 1 mL documented in this encounter Orders Medications Ordered That Prakash ht Not Have Been Administered Count Last Ordered Date First Ordered Date perflutren lipid (DEFINITY) 1.5 mL in sodium chloride 0.9% 10 mL syringe 1 09/13/2019 documented in this encounter Care Teams Zoology Technical Officer Relationship Specialty Start Date End Date Ronald Lam DO PCP - General 07/07/18 documented as of this encounter
--- OUTSIDE RECORDS SUMMARY | 2024-04-20 01:07 | XMS_ITS | Encounter Summary ---
Author Organization [facility] Address [address] [place] [address] Care Team Providers Care Disc Pad Grinder Name Role Phone Ronald Lam DO Primary Care Provider [phone] Encounter Details Date Type Department Care Team (Late st Contact Info) Description 03/16/2019 Telephone [facility] [address] [address] [address] [place] [address] Hector Desai MD [address] [id number] Social History Tobacco Use Types Packs/Day Years Used Date Smoking Tobacco: Never Smokeless Tobacco: Never Alcohol Use Standard Drinks/Week Comments Not Currently 0 (1 standard drink = 0.6 oz pur e alcohol) Sex and Gender Information Value Date Recorded Sex Assigned at Not on file 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 cb [phone] K SANDER * Telephone Encounter - Genesis Ramirez MA - 03/16/2019 9:58 AM CST Med approved and sent as requested, AW K SANDER * Telephone Encounter - Indira Krishnamurthy - 03/16/2019 9:32 AM CST Pt called to request refills on the eliquis 5 mg tabs. cb [phone] K SANDER documented in this encounter Plan of Treatment Not on file documented as of this encounter Visit Diagnoses Not on filedocumented in this encounter Discontinued Medications Medication Sig Discontinue Reason Start Date End Da te apixaban (ELIQUIS) 5 mg tablet Take 1 tablet (5 mg total) by mouth 2 (two) times a day Reorder 10/21/2018 03/16/2019 documented as of this encounter Care Teams Disc Pad Grinder Relationship Specialty Start Date End Date Ronald Lam DO PCP - General 07/07/18 documented as of this encounter
--- OUTSIDE RECORDS SUMMARY | 2024-04-20 01:07 | XMS_ITS | Encounter Summary ---
Author Organization [facility] Address [address] [place] [address] Care Team Providers Care Senior Chemical Engineer Name Role Phone Ronald Lam DO Primary Care Provider [phone] Reason for Visit * Reason Comments Follow-up Encounter Details Date Type Department Care Team (Late st Contact Info) Description 09/13/2018 Patient Outreach Transition to Wellness [address] [facility] [address] [place] [address] Donald Ugalde MSW [address] [facility] [address] [place] [address] Social History Tobacco Use Types Packs/Day Years Used Date Smoking Tobacco: Never Smokeless Tobacco: Never Alcohol Use Standard Drinks/Week Comments Not Currently 0 (1 standard drink = 0.6 oz pur e alcohol) Sex and Gender Information Value Date Recorded Sex Assigned at Not on file 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
--- OUTSIDE RECORDS SUMMARY | 2024-04-20 01:07 | XMS_ITS | Encounter Summary ---
Author Organization [facility] Address [address] [place] [address] Care Team Providers Care Certified Physical Therapist Assistant Name Role Phone Ronald Lam DO Primary Care Provider [phone] Reason for Referral * (Routine) - Closed Specialty Diagnoses / Procedures Referred By Contac t Referred To Contact Diagnoses Essential hypertension Procedures Transthoracic Echo Complete W Doppler/CF Giovany Fernando MD [address] [facility] [address] [place] [address] Phone: tel: fax: [facility] Referral ID Status Reason Start Date Expiration Date Visits Re quested Visits Authorized [id number] Closed 08/22/2019 03/02/2021 1 1 Encounter Details Date Type Department Care Team (Late st Contact Info) Description 08/19/2019 Telephone [facility] Cardiology [address] [place] [address] Giovany Fernando MD [address] 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 Reviewed note per [facility], echo scheduled for 10/04. Pt will call if BP remains above 140/90. * Telephone Encounter - Anabell Minor RN - 08/22/2019 8:48 AM CDT Lm on vm for pt to return call to discuss below * Telephone Encounter - Giovany Fernando MD - 08/20/2019 8:20 AM CDT I reviewed his testing from [facility]. Advise patient to continue to monitor blood pressure at home for next couple of weeks. If his bloodpressure remains elevated, then we can adjust his medications. Also, order an echocardiogram with Doppler, which can be performed as soon as we start doing testing in the office. Thank you * Telephone Encounter - Anabell Minor RN - 08/19/2019 3:25 PM CDT Spoke with pt and his daughter. 08/16 Apparently the pt woke feeling fatigued, vision impaired, blurry vision, room spinning, called 911, could not get out of bed. He went to [facility] ER and was dx with vertigo. He was instructed to f/u with PCP. Pt's daughter is concerned about this. His BP was elevated, up to the 180's/ 98 during this event. Per daughter, who states she is a relative of Dr Huntley, the CT ws clear, EKG was ok/ LBBB which is not new, labs ok. He has been taking his eliquis consistently. Pt states he has not had any other episodes like this. Would you like any other f/u? * Telephone Encounter - Nisa Dugan - 08/19/2019 1:43 PM CDT Pt called to report that he was seen at [facility] for his vertigo. On 08-17-2019 documented in this encounter Plan of Treatment Not on file documented as of this encounter Results * TRANSTHORACIC ECHO (TTE) COMPLETE W DOPPLER/CF W CONTRAST (09/13/2019 12:57 PM CDT) Anatomical Region Laterality Modality Ultrasound 09/13/2019 10:0 6 AM CDT Narrative 09/13/2019 2:59 PM CDT [facility] Cardiology [address] [address] [address] [facility] [address], [place] [address] P:[phone] P:[phone] Echocardiographic Report Patient Name: SHANON BROWN : 1945 Study Date: 09/13/2019 10:06:27 AM Gender: M Tech: Location: [place] Ref.Provider: JULIO CESAR Height(Cm): 185 BSA: 2.4 [...] Findings: Interpretation Site: Exam was interpreted at [facility]. Left Ventricle: Definity contrast agent used to [...] Procedure Note Gab Barlow MD - 09/13/2019 [facility] Cardiology [address] [address] [address] [address] [facility] [facility] [address], [place] [address] P:[phone] P:[phone] Echocardiographic Report Patient Name: SHANON BROWN : [birth year] Study Date: 09/13/2019 10:06:27 AM Gender: M Tech: Location: [place] Ref.Provider: JULIO CESAR Height(Cm): 185 BSA: 2.4 [...] Findings: Interpretation Site: Exam was interpreted at [facility]. Left Ventricle: Definity contrast agent used to [...] By: Gab Barlow MD 2019-09-13 14:59:34 CDT Giovany Fernando MD CV ECHO PROCEDURES Final Result documented in this encounter Visit Diagnoses Diagnosis Essential hypertension- Primary Unspecified essential hypertension Essential hypertension Unspecified essential hypertension documented in this encounter Care Teams Certified Physical Therapist Assistant Relationship Specialty Start Date End Date Ronald Lam DO PCP - General 07/07/18 documented as of this encounter
--- OUTSIDE RECORDS SUMMARY | 2024-04-20 01:07 | XMS_ITS | Encounter Summary ---
Author Organization [facility] Address [address] [place] [address] Care Team Providers Care Supervisor Lead Burning Name Role Phone Ronald Lam DO Primary Care Provider [phone] Encounter Details Date Type Department Care Team (Late st Contact Info) Description 06/13/2019 Telephone [facility] Cardiology [address] [facility] [address] [place] [address] Hector Desai MD [id number] Social History Tobacco Use Types Packs/Day Years Used Date Smoking Tobacco: Never Smokeless Tobacco: Never Alcohol Use Standard Drinks/Week Comments Not Currently 0 (1 standard drink = 0.6 oz pur e alcohol) Sex and Gender Information Value Date Recorded Sex Assigned at Not on file 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 ING CUTTER SYNTHETIC CLOTH * Telephone Encounter - Indira Krishnamurthy - 06/13/2019 8:45 AM CST Pt called to request samples of the eliquis 5 mg tabs. cb [phone] ING CUTTER SYNTHETIC CLOTH documented in this encounter Plan of Treatment Not on file documented as of this encounter Visit Diagnoses Not on filedocumented in this encounter Care Teams Supervisor Lead Burning Relationship Specialty Start Date End Date Ronald Lam DO PCP - General 07/07/18 documented as of this encounter
--- OUTSIDE RECORDS SUMMARY | 2024-04-20 01:07 | XMS_ITS | Encounter Summary ---
Author Organization [facility] Address [address] [facility] [address] [place] [address] Care Team Providers Care Stoper Name Role Phone Ronald Lam DO Primary Care Provider Encounter Details Date Type Department Care Team (Late st Contact Info) Description 09/21/2018 Telephone [facility] [address] [phone] Hector Desai MD [address] [address] Social History Tobacco Use Types Packs/Day Years Used Date Smoking Tobacco: Never Smokeless Tobacco: Never Alcohol Use Standard Drinks/Week Comments Not Currently 0 (1 standard drink = 0.6 oz pur e alcohol) Sex and Gender Information Value Date Recorded Sex Assigned at Not on file 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 He appreciated the follow up and will continue all meds for now and reevaluate if any further problems. . * Telephone Encounter - Hector Desai MD - 09/22/2018 3:46 PM CDT If patient has serious bleeding, then he may discontinue aspirin and continue clopidogrel and apixaban. * Telephone Encounter - Aleisha Kaur RN - 09/22/2018 10:52 AM CDT Pt maikel that Xarelto ws going to cost $390/mo, so pt was going to check on martinez of Pradaxa. told pt to call his [employer] insurance and check to see if he has any mail order benefits as the cost savings may be substantial. Also ask about Eliquis , Xarelto and Pradaxa coverage. He will call us back after he determines how he will proceed. Pt mentioned that he has been having frequent nosebleeds and was in the ER a few evenings ago because he could not stop the nosebleed. Told pt the may need to follow up with ENT to evaluate. He takesASA 81 mg , clopidogrel and apixaban at this time. (he has Eliquis samples). Explained the rationale for the triple therapy. * Telephone Encounter - Ashleigh Whyte - 09/22/2018 10:11 AM CDT Pt said he missed a call from our office. Pt cb [phone] * Telephone Encounter - Jessica Hollins NP - 09/21/2018 12:25 PM CDT Xarelto 20 mg once daily is the appropriate dose for him. * Telephone Encounter - Aleisha Kaur RN - 09/21/2018 11:08 AM CDT Pt said the Eliquis is too expensive for him, wants to try a rx for Xarelto. Told pt I will check with provider and send Xarelto rx today. * Telephone Encounter - Verónica Dietrich - 09/21/2018 10:51 AM CDT Pt returned call. Mentioned he has been taking samples of eliquis and wants to know if either xarelto or pradaxa can be prescribed to his pharmacy so he can check the martinez on them. cb [phone] * Telephone Encounter - Marti Bolden RN - 09/21/2018 8:36 AM CDT LMTC * Telephone Encounter - Ashleigh Whyte - 09/21/2018 8:30 AM CDT Pt wants a call back to discuss his nose bleeds. Pt said he has nose bleeds every two days. Pt [phone] documented in this encounter Plan of Treatment Not on file documented as of this encounter Visit Diagnoses Not on filedocumented in this encounter Discontinued Medications Medication Sig Discontinue Reason Start Date End Da te apixaban (ELIQUIS) 5 mg tablet Take 1 tablet (5 mg total) by mouth 2 (two) times a day Alternate therapy 08/19/2018 09/21/2018 documented as of this encounter Care Teams Stoper Relationship Specialty Start Date End Date Ronald Lam DO PCP - General 07/07/18 documented as of this encounter
--- OUTSIDE RECORDS SUMMARY | 2024-04-20 01:07 | XMS_ITS | Encounter Summary ---
Author Organization [facility] Address [address] [facility] [address] [place] [address] Care Team Providers Care Concierge Manager Name Role Phone Ronald Lam DO Primary Care Provider [phone] Encounter Details Date Type Department Care Team (Late st Contact Info) Description 02/21/2019 Telephone [facility] [address] [facility] [address] [place] [address] Hector Desai MD [address] [address] Social History Tobacco Use Types Packs/Day Years Used Date Smoking Tobacco: Never Smokeless Tobacco: Never Alcohol Use Standard Drinks/Week Comments Not Currently 0 (1 standard drink = 0.6 oz pur e alcohol) Sex and Gender Information Value Date Recorded Sex Assigned at Not on file Legal Sex Male 12:20 AM MIS SPECIALIST Gender Identity Not on file Sexual Orientation Not on file documented as of this encounter Miscellaneous Notes * Telephone Encounter - Symone Couch MA - 02/21/2019 4:38 PM CDT Patient aware samples will be at front office associate when patient comes in * Telephone Encounter - Indira Krishnamurthy - 02/21/2019 1:54 PM CDT Pt called to request samples of the eliquis 5 mg tabs. cb [phone] documented in this encounter Plan of Treatment Not on file documented as of this encounter Visit Diagnoses Not on filedocumented in this encounter Care Teams Concierge Manager Relationship Specialty Start Date End Date Ronald Lam DO PCP - General 07/07/18 documented as of this encounter
--- OUTSIDE RECORDS SUMMARY | 2024-04-20 01:07 | XMS_ITS | Encounter Summary ---
Author Organization [facility] Address [address] [facility] [address] [place] [address] Care Team Providers Care Cable Puller Name Role Phone Ronald Lam DO Primary Care Provider [phone] Reason for Visit * Reason Comments Follow-up 3 mo follow up on CA D, PAF, LBBB, HTN, CKD Encounter Details Date Type Department Care Team (Late st Contact Info) Description 12/08/2018 10:30 AM CDT Office Visit [facility] [address] [facility] [address] [place] [address] Hector Desai MD [facility] [place] [id number] Coronary artery disease involving [place] coronary artery of [place] heart without angina pectoris (Primary Dx); Status [...] on file Legal Sex Male 12:20 AM JOB HAND Gender Identity Not on file Sexual Orientation Not on file documented as of this encounter Last Filed Vital Signs Vital Sign Reading Time Taken Comments Blood Pressure 132/72 12/08/2018 10:20 AM CDT Pulse 67 12/08/2018 10:20 AM CDT Temperature - - Respiratory Rate - - Oxygen Saturation 97% 12/08/2018 10:20 AM CDT Inhaled Oxygen Concentration - - Weight 116.6 kg (257 lb) 12/08/2018 10:20 AM CDT Height 185.4 cm (6' 1 ) 12/08/2018 10:20 AM CDT Body Mass Index 33.91 12/08/2018 10:20 AM CDT documented in this encounter Ordered Prescriptions Prescription Sig Dispense Quantity Refills Last Filled Start Date End Date ezetimibe (ZETIA) 10 mg tablet Take 1 tablet (10 mg total) by mouth daily 30 tablet 11 12/08/2018 12/14/2018 ezetimibe (ZETIA) 10 mg tablet Take 1 tablet (10 mg total) by mouth daily 30 tablet 11 12/08/2018 12/08/2018 documented in this encounter Progress Notes * Hector Desai MD - 12/08/2018 10:30 AM CDT [facility] 12/08/2018 CHIEF COMPLAINT Chief Complaint Patient presents with ??? Follow-up 3 mo follow up on CAD, PAF, LBBB, HTN, CKD CAD HPI Yosef Chapa is a 73 y.o. male with known CAD, history of remote PCI/stenting of LCX/OM branch; hypertension, CKD stage 3, dyslipidemia, RIOS. ?? Patient was admitted to [facility] on 07/05/2018 with complaints of anginal chest pain with radiation to left arm for last 2-3 weeks. His troponins were negative, EKG showed left bundle branchblock. ??Patient underwent coronary angiogram at [facility] on 07/06/2018 in the setting [...] aspirin and ticagrelor. ??Patient was transferred to [facility] for another attempt on the intervention. On 07/08/2018, patient underwent PCI - orbital atherectomy of mid RCA using CSI 1.25 mm classic crown orbital atherectomy system, followed by balloon angiop lasty and stenting using a 3.0 x 32 mm everolimus eluting stent. His postprocedure hospital course remained uneventful. 09/01/2018-patient states that he had a follow-up appointment with application internship on 08/18/2018 and was found to have [...] by mouth 2 (two) times a day ??? atorvastatin (LIPITOR) 80 mg tablet Take [...] 1 capsule by mouth daily . ??? ezetimibe (ZETIA) 10 mg tablet Take 1 tablet (10 mg total) by mouth daily 30 tablet [...] orthopnea/PND Gastrointestinal ROS: negative for - abdominal pain [...] HDL 33, triglycerides 192, LDL 101. 12/08/2018 PHYSICAL EXAM Vitals BP 132/72 (BP Location: Right arm, Patient Position: Sitting) Pulse 67 Ht 185.4 cm (6' 1 ) Wt 116.6 kg (257 lb) SpO2 97% BMI 33.91 kg/m?? General appearance - alert, no distress, [...] for this visit: Coronary artery disease involving [place] coronary artery of [place] heart without angina pectoris (Primary) - POCT lipid panel Status post angioplasty with stent - POCT lipid panel PAF (paroxysmal atrial fibrillation) (CMS/HCC) LBBB (left bundle branch block) Essential hypertension Chronic anticoagulation Chronic kidney disease, unspecified CKD stage Other orders - ezetimibe (ZETIA) 10 mg tablet; Take 1 tablet (10 mg total) by mouth daily PLAN/RECOMMENDATIONS 73-year-old male with CAD, history of remote PCI/stenting of LCX/OM branch; hypertension, CKD stage3, dyslipidemia, RIOS. Patient is status post complex PCI on 07/08/2018 with orbital atherectomy followed by balloon angioplasty and stenting using a 3.0 x 32 mm everolimus eluting stent (07/08/2018). Patient had resolution of angina after PCI. - Recently found to have atrial fibrillation with RVR, currently in sinus rhythm. Patient is stablefrom cardiac standpoint at present. - optimal medical treatment including antiplatelet therapy with clopidogrel. Continue anticoagulation with apixaban. Continue carvedilol, losartan/hydrochlorothiazide, diltiazem. Continue high-intensity statin treatment with atorvastatin 80 mg p.o. Q.h.s.. LDL from today 12/08/2018 is elevated at 101. Will add ezetimibe 10 mg daily, and recheck lipid panel on follow-up visit. If LDL remains more than 70, then patient will be initiated on PCSK9 inhibitor. - Counseling was done for heart healthy diet, aerobic exercise at least 5 times a week, Medication compliance. More than 50% of the time was spent on counseling. - RTC approximately 5 months or sooner if needed. Hector Desai MD documented in this encounter Plan of Treatment Not on file documented as of this encounter Procedures Procedure Name Priority Date/Time Associated Diagnosis Comments POCT LIPID PANEL Routine 12/08/2018 10:4 6 AM CDT Coronary artery disease involving [place] coronary artery of [place] heart without angina pectoris Status post angioplasty with stent documented in this encounter Results * POCT lipid panel (12/08/2018 10:46 AM CDT) Cholesterol, POC 173 mg/dL HDL, POC 33 mg/dL Triglycerides, POC 192 mg/dL LDL Cholesterol POC 101 mg/dL Chol/HDL Ratio, POC 5.2 Non-HDL Cholesterol, POC 140 mg/dL Cholesterol Total, POC 173 mg/dL Blood specimen (specimen) 12/08/2018 10:46 AM CDT us Hector Desai MD POINT OF CARE TEST ORDERABLES Fi nal Result documented in this encounter Visit Diagnoses Diagnosis Coronary artery disease involving [place] coronary artery of [place] heart without angina pectoris- Primary Status post angioplasty with stent Postsurgical percutaneous transluminal coronary angioplasty status PAF (paroxysmal atrial fibrillation) ([facility]/HCC) ([facility]) Atrial fibrillation LBBB (left bundle branch block) Other left bundle branch block Essential hypertension Unspecified essential hypertension Chronic anticoagulation Encounter for long-term (current) use of anticoagulants Chronic kidney disease, unspecified CKD stage documented in this encounter Discontinued Medications Medication Sig Discontinue Reason Start Date End Da te aspirin 81 mg tablet Take 1 tablet (81 mg total) by mouth daily 07/10/2018 12/08/2018 ezetimibe (ZETIA) 10 mg tablet Take 1 tablet (10 mg total) by mouth daily Reorder 12/08/2018 12/08/2018 documented as of this encounter Care Teams Cable Puller Relationship Specialty Start Date End Date Ronald Lam DO PCP - General 07/07/18 documented as of this encounter
--- OUTSIDE RECORDS SUMMARY | 2024-04-20 01:07 | XMS_ITS | Encounter Summary ---
Author Organization [facility] Care Team Providers Care Rounder And Backer Name Role Phone Ronald Lam DO Primary Care Provider [phone] Donald Ugalde ATHLETIC MONITOR Unavailable Mary Kate Ochoa DNP Unavailable [phone] Tucker Fry ATHLETIC MONITOR Unavailable [phone] Encounter Details Date Type Department Care Team (Latest Contact Info) Description 09/01/2018 Travel Social History Tobacco Use Types Packs/Day Years Used Date Smoking Tobacco: Never Smokeless Tobacco: Never Alcohol Use Standard Drinks/Week Comments Not Currently 0 (1 standard drink = 0.6 oz pur e alcohol) Sex and Gender Information Value Date Recorded Sex Assigned at Not on file Legal Sex Male 12:20 AM RESIDENT INTERN Gender Identity Not on file Sexual Orientation Not on file documented as of this encounter Plan of Treatment Not on file documented as of this encounter Visit Diagnoses Not on filedocumented in this encounter Care Teams Rounder And Backer Relationship Specialty Start Date End Date Ronald Lam DO PCP - General 07/07/18 Donald Ugalde MSW [address] [place], [place] [id number] [facility] Out[facility] Nursing Home Administrator 07/12/18 09/12/18 Mary Kate Ochoa DNP [address] [place] [address] Nurse Practitioner Internal Medicine 07/12/18 09/12/18 Tucker Fry, ATHLETIC MONITOR [address] [facility] [address] [place] [address] [facility] Outpatient Nursing Home Administrator 07/12/18 09/12/18 documented as of this encounter
--- OUTSIDE RECORDS SUMMARY | 2024-04-20 01:07 | XMS_ITS | Encounter Summary ---
Author Organization [facility] Address [address] [facility] [address] [place] [address] Care Team Providers Care Agricultural Equipment Design Engineer Name Role Phone Ronald Lam DO Primary Care Provider [phone] Donald Ugalde SANITATION WORKER Unavailable Mary Kate Ochoa DNP Unavailable Tucker Fry SANITATION WORKER Unavailable [phone] Reason for Visit * Reason Comments Atrial Fibrillation Encounter Details Date Type Department Care Team (Late st Contact Info) Description 08/18/2018 11:30 AM CDT Office Visit [facility] [address] [facility] [address] [place] [address] Atrial fibrillation, unspecified type (CMS/HCC) (Primary Dx) Social History Tobacco Use Types Packs/Day Years Used Date Smoking Tobacco: Never Smokeless Tobacco: Never Alcohol Use Standard Drinks/Week Comments Not Currently 0 (1 standard drink = 0.6 oz pur e alcohol) Sex and Gender Information Value Date Recorded Sex Assigned at Not on file Legal Sex Male 12:20 AM SCRUM COACH Gender Identity Not on file Sexual Orientation Not on file documented as of this encounter Progress Notes * Aleisha Kaur RN - 08/18/2018 11:[address] Cuevas called, pt was in his office for a routine visit and had a heart rate of 120. MASON Herrera received a call and told them to send pt to the office for EKG since he was asymtomatic. Pt said he feels like something a little off , but denies SOB, minor fatigue reported. He said he does have somemild lightheadedness. Princess BROWN checked BP and 112/64. Gave pt pt information re:afib. (pt maikel he thinks he made have had a.fib in the past and it just went away..Told pt we will call with possible medication changes after Dr. Desai reviews. documented in this encounter Miscellaneous Notes * Addendum Note - Genesis Rivera MA - 08/18/2018 11:30 AM CDTAddended by: GENESIS RIVERA on: 08/18/2018 06:24 PM Modules accepted: Orders documented in this encounter Plan of Treatment Not on file documented as of this encounter Procedures Procedure Name Priority Date/Time Associated Diagnosis Comments ECG 12-LEAD Routine 08/18/2018 Atrial fibrillation, unspecified type (CMS/HCC) documented in this encounter Results * ECG 12 lead (08/18/2018) Gab Barlow MD ECG ORDERABLES Final Res ult documented in this encounter Visit Diagnoses Diagnosis Atrial fibrillation, unspecified type (HCC)- Primary documented in this encounter Care Teams Agricultural Equipment Design Engineer Relationship Specialty Start Date End Date Ronald Lam DO PCP - General 07/07/18 Donald Ugalde, DONG [address] [facility] [address] [place] [address] [facility] Outpatient Comptometer Operator 07/12/18 09/12/18 Mary Kate Ochoa DNP [address] [facility] [address] [place] [address] Nurse Practitioner Internal Medicine 07/12/18 09/12/18 Tucker Fry, SANITATION WORKER [address] [facility] [address] [place] [address] [facility] Outpatient Comptometer Operator 07/12/18 09/12/18 documented as of this encounter
--- OUTSIDE RECORDS SUMMARY | 2024-04-20 01:07 | XMS_ITS | Encounter Summary ---
Author Organization [facility] Address [address] [facility] [address] [place] [address] Care Team Providers Care Outplacement Consultant Name Role Phone Ronald Lam DO Primary Care Provider [phone] Encounter Details Date Type Department Care Team (Late st Contact Info) Description 12/20/2018 Telephone [facility] [address] [phone] [place] [address] [place] [address] Social History Tobacco Use Types Packs/Day Years Used Date Smoking Tobacco: Never Smokeless Tobacco: Never Alcohol Use Standard Drinks/Week Comments Not Currently 0 (1 standard drink = 0.6 oz pur e alcohol) Sex and Gender Information Value Date Recorded Sex Assigned at Not on file Legal Sex Male 12:20 AM LEATHER GOODS I ASSEMBLER Gender Identity Not on file Sexual Orientation Not on file documented as of this encounter Ordered Prescriptions Prescription Sig Dispense Quantity Refills Last Filled Start Date End Date ezetimibe (ZETIA) 10 mg tablet Take 1 tablet (10 mg total) by mouth daily 90 tablet 3 12/20/2018 11/26/2019 documented in this encounter Miscellaneous Notes * Telephone Encounter - iNcole Wright MA - 12/20/2018 11:03 AM CDT Medication sent to pharmacy. * Telephone Encounter - Ashleigh Whyte - 12/20/2018 10:45 AM CDT Pt called requesting refills for ezetimibe 10 mg tabs be sent to [facility]. documented in this encounter Plan of Treatment Not on file documented as of this encounter Visit Diagnoses Not on filedocumented in this encounter Discontinued Medications Medication Sig Discontinue Reason Start Date End Da te ezetimibe (ZETIA) 10 mg tablet Take 1 tablet (10 mg total) by mouth daily Reorder 12/14/2018 12/20/2018 documented as of this encounter Care Teams Outplacement Consultant Relationship Specialty Start Date End Date Ronald Lma DO PCP - General 07/07/18 documented as of this encounter
--- OUTSIDE RECORDS SUMMARY | 2024-04-20 01:07 | XMS_ITS | Encounter Summary ---
Author Organization [facility] Address [address] [facility] [address] [place] [address] Care Team Providers Care Garnett Machine Operator Helper Name Role Phone Ronald Lam DO Primary Care Provider [phone] Encounter Details Date Type Department Care Team (Late st Contact Info) Description 01/31/2019 Telephone [facility] [address] [address] [address] [place] [address] Hector Desai MD [address] [address] Social History Tobacco Use Types Packs/Day Years Used Date Smoking Tobacco: Never Smokeless Tobacco: Never Alcohol Use Standard Drinks/Week Comments Not Currently 0 (1 standard drink = 0.6 oz pur e alcohol) Sex and Gender Information Value Date Recorded Sex Assigned at Not on file Legal Sex Male 12:20 AM FUEL ISLAND ATTENDANT Gender Identity Not on file Sexual Orientation Not on file documented as of this encounter Miscellaneous Notes * Telephone Encounter - Elaine Trejo MA - 01/31/2019 11:07 AM CDT Samples at the [facility] of the visually impaired for 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 Patient notified. * Telephone Encounter - Verónica Dietrich - 01/31/2019 10:43 AM CDT Pt called for samples of eliquis 5 mg tabs. [phone] documented in this encounter Plan of Treatment Not on file documented as of this encounter Visit Diagnoses Not on filedocumented in this encounter Care Teams Garnett Machine Operator Helper Relationship Specialty Start Date End Date Ronald Lam DO PCP - General 07/07/18 documented as of this encounter
--- OUTSIDE RECORDS SUMMARY | 2024-04-20 01:07 | XMS_ITS | Encounter Summary ---
Author Organization [facility] Address [address] [facility] [address] [place] [address] Care Team Providers Care Marble Mechanic Helper Name Role Phone Ronald Lam DO Primary Care Provider [phone] Encounter Details Date Type Department Care Team (Late st Contact Info) Description 06/09/2019 Telephone [facility] Cardiology [address] [facility] [address] [place] [address] Hector Desai MD [address] [id number] Social History Tobacco Use Types Packs/Day Years Used Date Smoking Tobacco: Never Smokeless Tobacco: Never Alcohol Use Standard Drinks/Week Comments Not Currently 0 (1 standard drink = 0.6 oz pur e alcohol) Sex and Gender Information Value Date Recorded Sex Assigned at Not on file Legal Sex Male 12:20 AM STATION EXAMINER Gender Identity Not on file Sexual Orientation Not on file documented as of this encounter Miscellaneous Notes * Telephone Encounter - Nicole Wright MA - 06/21/2019 10:16 AM CST LM letting patient know samples are up front. ION EXAMINER * Telephone Encounter - Symone Couch MA - 06/09/2019 2:00 PM CST Called patient unable to LVM. ION EXAMINER * Telephone Encounter - Nisa Dugan - 06/09/2019 1:41 PM CST Patient called requesting samples of : Eliquis 5 mg [phone] ION EXAMINER documented in this encounter Plan of Treatment Not on file documented as of this encounter Visit Diagnoses Not on filedocumented in this encounter Care Teams Marble Mechanic Helper Relationship Specialty Start Date End Date Ronald Lam DO PCP - General 07/07/18 documented as of this encounter
--- OUTSIDE RECORDS SUMMARY | 2024-04-20 01:07 | XMS_ITS | Encounter Summary ---
Author Organization [facility] Care Team Providers Care Computer Lab Assistant Name Role Phone Ronald Lam DO Primary Care Provider [phone] Encounter Details Date Type Department Care Team (Latest Contact Info) Description 12/08/2018 Travel Social History Tobacco Use Types Packs/Day Years Used Date Smoking Tobacco: Never Smokeless Tobacco: Never Alcohol Use Standard Drinks/Week Comments Not Currently 0 (1 standard drink = 0.6 oz pur e alcohol) Sex and Gender Information Value Date Recorded Sex Assigned at Not on file Legal Sex Male 12:20 AM VISUAL BASIC DEVELOPER Gender Identity Not on file Sexual Orientation Not on file documented as of this encounter Plan of Treatment Not on file documented as of this encounter Visit Diagnoses Not on filedocumented in this encounter Care Teams Computer Lab Assistant Relationship Specialty Start Date End Date Ronald Lam DO PCP - General 07/07/18 documented as of this encounter
--- OUTSIDE RECORDS SUMMARY | 2024-04-20 01:07 | XMS_ITS | Encounter Summary ---
Author Organization [facility] Address [address] [place] [id number] Care Team Providers Care Director Operating Name Role Phone Ronald Lam DO Primary Care Provider [phone] Encounter Details Date Type Department Care Team (Late st Contact Info) Description 10/21/2018 Telephone [facility] [address] [place] [phone] [place] [address] [place] [id number] Social History Tobacco Use Types Packs/Day Years Used Date Smoking Tobacco: Never Smokeless Tobacco: Never Alcohol Use Standard Drinks/Week Comments Not Currently 0 (1 standard drink = 0.6 oz pur e alcohol) Sex and Gender Information Value Date Recorded Sex Assigned at Not on file Legal Sex Male 12:20 AM INTERACTIVE MEDIA MARKETING SPECIALIST Gender Identity Not on file Sexual Orientation Not on file documented as of this encounter Ordered Prescriptions Prescription Sig Dispense Quantity Refills Last Filled Start Date End Date apixaban (ELIQUIS) 5 mg tablet Take 1 tablet (5 mg total) by mouth 2 (two) times a day 10/21/2018 03/16/2019 documented in this encounter Miscellaneous Notes * Telephone Encounter - Darling Toussaint RN - 10/21/2018 12:23 PM CDT Spoke with patient. States that he has continued with the eliquis. Advised patient that he needs tocontinue with AC. Will provide patient with additional samples of eliquis. Samples placed up front.Will update med list. * Telephone Encounter - Genesis Leigh - 10/21/2018 9:33 AM CDT Patient calling about nose bleeds 3 weeks ago/stopped baby aspirin per Dr. Desai. Patient is about to run out of eloquis. He wants to know if he should refill it or start a new blood thinner or restart baby aspirin. Please call to discuss. documented in this encounter Plan of Treatment Not on file documented as of this encounter Visit Diagnoses Not on filedocumented in this encounter Discontinued Medications Medication Sig Discontinue Reason Start Date End Da te rivaroxaban (XARELTO) 20 mg tablet Take 1 tablet (20 mg total) by mouth daily Alternate therapy 09/21/2018 10/21/2018 documented as of this encounter Care Teams Director Operating Relationship Specialty Start Date End Date Ronald Lam DO PCP - General 07/07/18 documented as of this encounter
--- OUTSIDE RECORDS SUMMARY | 2024-04-20 01:07 | XMS_ITS | Encounter Summary ---
Author Organization [facility] Medical [facility] Address [address] [facility] [address] [facility] [address] [place] [address] Care Team Providers Care Regional Construction Manager Name Role Phone Ronald Lam DO Primary Care Provider [phone] Encounter Details Date Type Department Care Team (Late st Contact Info) Description 11/22/2018 Telephone [facility] [address] [place] [address] Hector Desai MD [address] [address] Social History Tobacco Use Types Packs/Day Years Used Date Smoking Tobacco: Never Smokeless Tobacco: Never Alcohol Use Standard Drinks/Week Comments Not Currently 0 (1 standard drink = 0.6 oz pur e alcohol) Sex and Gender Information Value Date Recorded Sex Assigned at Not on file Legal Sex Male 12:20 AM COLLEGE DIRECTOR Gender Identity Not on file Sexual Orientation Not on file documented as of this encounter Miscellaneous Notes * Telephone Encounter - Nicole Wright MA - 11/22/2018 9:54 AM CDT Samples up front, patient aware. * Telephone Encounter - Verónica Dietrich - 11/22/2018 8:39 AM CDT Pt called for samples of eliquis 5 mg tabs. cb [phone] documented in this encounter Plan of Treatment Not on file documented as of this encounter Visit Diagnoses Not on filedocumented in this encounter Care Teams Regional Construction Manager Relationship Specialty Start Date End Date Ronald Lam DO PCP - General 07/07/18 documented as of this encounter
--- OUTSIDE RECORDS SUMMARY | 2024-04-20 01:07 | XMS_ITS | Encounter Summary ---
Author Organization [facility] Care Team Providers Care Margin Analyst Name Role Phone Ronald Lam DO Primary Care Provider [phone] Donald Ugalde VACUUM EXTRACTOR OPERATOR Unavailable Mary Kate Ochoa DNP Unavailable [phone] Tcuker Fry VACUUM EXTRACTOR OPERATOR Unavailable [phone] Encounter Details Date Type Department Care Team (Latest Contact Info) Description 08/18/2018 Travel Social History Tobacco Use Types Packs/Day Years Used Date Smoking Tobacco: Never Smokeless Tobacco: Never Alcohol Use Standard Drinks/Week Comments Not Currently 0 (1 standard drink = 0.6 oz pur e alcohol) Sex and Gender Information Value Date Recorded Sex Assigned at Not on file Legal Sex Male 12:20 AM ACCOUNTING RECRUITER Gender Identity Not on file Sexual Orientation Not on file documented as of this encounter Plan of Treatment Not on file documented as of this encounter Visit Diagnoses Not on filedocumented in this encounter Care Teams Margin Analyst Relationship Specialty Start Date End Date Ronald Lam DO PCP - General 07/07/18 Donald Ugalde MSW [address] [place], [place] [id number] [facility] Outpatient Pump Operator 07/12/18 09/12/18 Mary Kate Ochoa DNP [address] [place] [address] Nurse Practitioner Internal Medicine 07/12/18 09/12/18 Tucker Fry, VACUUM EXTRACTOR OPERATOR [address] [facility] [facility] [address] [place] [address] CHAP Outpatient Pump Operator 07/12/18 09/12/18 documented as of this encounter
--- OUTSIDE RECORDS SUMMARY | 2024-04-20 01:07 | XMS_ITS | Encounter Summary ---
Author Organization 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
--- OUTSIDE RECORDS SUMMARY | 2024-04-20 01:07 | XMS_ITS | Encounter Summary ---
Author Organization [facility] Address [address] [facility] [address] [place] [address] Care Team Providers Care Tobacco Checkout Clerk Name Role Phone Ronald Lam DO Primary Care Provider Encounter Details Date Type Department Care Team (Late st Contact Info) Description 12/06/[address] 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 * Telephone Encounter - Indira Krishnamurthy - 12/07/2019 2:09 PM CDT Yue green/ Dr Moffett has requested that cardiac clearance be re-faxed for pt scheduled procedure to have a biopsy on 12-21-2019 * Telephone Encounter - Darling Toussaint, RN - 12/06/2019 4:20 PM CDT Clearance faxed again * Telephone Encounter - Nisa Dugan - 12/06/2019 4:10 PM CDT Yue green/ Dr Moffett has requested that cardiac clearance be faxed pt is scheduled to have a biopsy on 12-21-2019 documented in this encounter Plan of Treatment Not on file documented as of this encounter Visit Diagnoses Not on filedocumented in this encounter Care Teams Tobacco Checkout Clerk Relationship Specialty Start Date End Date Ronald Lam DO PCP - General 07/07/18 documented as of this encounter
--- OUTSIDE RECORDS SUMMARY | 2024-04-20 01:07 | XMS_ITS | Encounter Summary ---
Author Organization [facility] Healthcare Address [address] [place] [address] Care Team Providers Care Traffic Operations Manager Name Role Phone Ronald Lam DO Primary Care Provider [phone] Encounter Details Date Type Department Care Team (Late st Contact Info) Description 08/17/2019 1:27 PM CDT - 08/17/2019 6:20 PM CDT Hospital Encounter [address] [address] Unknown, Romero Cox MD [address] [place] [id number] Discharge Disposition: Discharge to home or self care Social History Tobacco Use Types Packs/Day Years Used Date Smoking Tobacco: Never Smokeless Tobacco: Never Alcohol Use Standard Drinks/Week Comments Not Currently 0 (1 standard drink = 0.6 oz pur e alcohol) Sex and Gender Information Value Date Recorded Sex Assigned at Not on file Legal Sex Male 12:20 AM [employer] Gender Identity Not on file Sexual Orientation Not on file documented as of this encounter Last Filed Vital Signs Vital Sign Reading Time Taken Comments Blood Pressure 181/95 08/17/2019 1:28 PM CDT Pulse 69 08/17/2019 1:28 PM CDT Temperature 36.3 ??C (97.4 ??F) 08/17/2019 1:28 PM CD T Respiratory Rate - - Oxygen Saturation 99% 08/17/2019 1:28 PM CDT Inhaled Oxygen Concentration - - Weight 112 kg (246 lb 14.7 oz) 08/17/2019 1:28 P M CDT Height 185.4 cm (6' 1 ) 08/17/2019 1:28 PM CDT Body Mass Index 32.58 08/17/2019 1:28 PM CDT documented in this encounter Medications at Time of Discharge allopurinol (ZYLOPRIM) 300 mg tablet Take 300 mg by mouth daily . carvedilol (COREG) 25 mg tablet Take 25 mg by mouth 2 (two) times a day with meals . multivitamin capsule Take 1 capsule by mouth daily . apixaban (ELIQUIS) 5 mg tablet Take 1 tablet (5 mg total) by mouth 2 (two) times a day 180 tablet 2 08/05/2019 06/08/2020 atorvastatin (LIPITOR) 80 mg tablet TAKE 1 TABLET(80 MG) BY MOUTH DAILY 90 tablet 2 07/12/2019 03/16/2020 clopidogreL (PLAVIX) 75 mg tablet TAKE 1 TABLET(75 MG) BY MOUTH DAILY 90 tablet 2 07/12/2019 03/16/2020 DILT-XR 120 mg 24 hr capsule TAKE 1 CAPSULE(120 MG) BY MOUTH DAILY 90 capsule 2 07/12/2019 03/16/2020 ezetimibe (ZETIA) 10 mg tablet Take 1 tablet (10 mg total) by mouth daily 90 tablet 3 12/20/2018 11/26/2019 losartan-hydroCHL OROthiazide (HYZAAR) 100-12.5 mg per tablet Take 1 tablet by mouth daily . 02/13/2020 documented as of this encounter Discharge Disposition Disposition Code Departure Means Destination Discharge to home or self care documented in this encounter Plan of Treatment Not on file documented as of this encounter Procedures Procedure Name Priority Date/Time Associated Diagnosis Comments TROPONIN I Routine 08/17/2019 6:14 PM CDT URINALYSIS, COMPLETE W/REFLEX TO CULTURE Routine 08/17/2019 2:55 PM CDT TNI WITH LIPID PANEL Routine 08/17/2019 2:22 PM CDT CBC WITH AUTO DIFFERENTIAL Routine 08/17/2019 2:22 PM CDT TSH Routine 08/17/2019 2:22 PM CDT LIPASE Routine 08/17/2019 2:22 PM CDT COMPREHENSIVE METABOLIC PANEL Routine 08/17/2019 2:22 PM CDT ECG 12-LEAD 08/17/2019 1:48 PM CDT CTA NECK W CONTRAST 08/17/2019 1 2:00 AM CDT CTA CEREBRAL ARTERIES 08/17/2019 12:00 AM CDT XR CHEST 1 VIEW 08/17/2019 12:[address] HEAD WO CONTRAST 08/17/2019 1 2:00 AM CDT documented in this encounter Results * Troponin I (08/17/2019 6:14 PM CDT) [facility] Troponin I <0.300 0.000 - 0.300 ng/mL [facility] Comment: Reference using ESPERANZA Chemiluminescence ? Negative: Repeat in 4-6 hours as indicated. 08/17/2019 6:14 PM CDT 08/17/2019 6:21 PM CDT Narrative Resulting Agency Comment ER Leanna Hinojosa [employer] SALESPERSON LAB BLOOD ORDERABLES Final R esult [facility] [address], [place] [address] [phone] * (ABNORMAL) URINALYSIS, COMPLETE W/REFLEX TO CULTURE (08/17/2019 2:55 PM CDT) [facility] Ur Collection Type CLEAN CATCH [facility] Ur Culture Indicated? C S NOT INDICATED [facility] Urine Color YELLOW YELLOW [facility] Urine Clarity CLEAR CLEAR [facility] Urine Glucose (UA) NORMAL NORMAL mg/dL [facility] Urine Bilirubin NEGATIVE NEGATIVE mg/dl [facility] Urine Ketones NEGATIVE NEGATIVE mg/dL [facility] Ur Specific [place] 1.014 1.005 - 1.025 [facility] Urine Blood NEGATIVE NEGATIVE mg/dl [facility] Urine pH 8.0 5.0 - 8.0 [facility] Urine Protein 30(A) NEGATIVE mg/dL [facility] Urine Urobilinogen NORMAL NORMAL mg/dL [facility] Urine Nitrite NEGATIVE NEGATIVE [facility] Ur Leukocyte Esterase NEGATIVE NEGATIVE Paulette/ul [facility] Ur Microscopic Review Indicated or Ordered [facility] Urine RBC 2 0 - 2 /HPF [facility] Urine WBC 2 0 - 2 /HPF [facility] Urine Mucus RARE /LPF [facility] 08/17/2019 2:55 PM CDT 08/17/2019 3:10 PM CDT Narrative [facility] - 08/17/2019 3:37 PM CDT Indication(s) for ordering ?? Increased freq/urgency BB Clean catch Resulting Agency Comment ER Becky WIN LAB URINE ORDERABLES Fin al Result Performing Organization Address City/[facility]/ZIP Co de Phone Number [address] [phone] * TSH (08/17/2019 2:22 PM CDT) TSH 3.690 0.27 - 4.20 uIU/mL [facility] 08/17/2019 2:22 PM CDT 08/17/2019 2:28 PM CDT Narrative Resulting Agency Comment ER Becky WIN LAB BLOOD ORDERABLES Fin al Result Performing Organization Address City/[facility]/ZIP Co de Phone Number [address] [phone] * TNI with LIPID PANEL (08/17/2019 2:22 PM CDT) Troponin I <0.300 0.000 - 0.300 ng/mL [facility] Comment: Reference using ESPERANZA Chemiluminescence ? Negative: Repeat in 4-6 hours as indicated. Triglycerides 125 0 - 149 mg/dL [facility] Comment: National Lipid Association/NCEP Guidelines: ?? Normal ?< 150 mg/dL ?? Borderline high ?? 150-199 mg/dL ?? High ?200-499 mg/dL ?? Very High ? >=500 mg/dL Cholesterol 101 0 - 199 mg/dL [facility] Comment: National Lipid Association/NCEP Guidelines: Desirable ? < 200 mg/dL Borderline high: ??200-239 mg/dL High Risk: ?>=240 mg/dL HDL Cholesterol 33 mg/dL [facility] Comment: Reference Ranges: ? Males: >=40 mg/dL ? Females: >=50 mg/dL LDL Cholesterol, Calc 43 0 - 129 mg/dL [facility] Comment: National Lipid Association/NCEP Guidelines: ??Optimal ? < 100 mg/dL ??Near Optimal ?100-129 mg/dL ??Borderline high 130-159 mg/dL ??High ?>=160 mg/dL Cholesterol/HDL Ratio 3.1 [facility] Comment: Optimal ??< 3.5:1 High ? > 5:1 08/17/2019 2:22 PM CDT 08/17/2019 2:28 PM CDT Narrative Resulting Agency Comment ER us Becky WIN LAB BLOOD ORDERABLES Fin al Result [facility] [address] [place] [address], [facility] [phone] * (ABNORMAL) Comprehensive metabolic panel (08/17/2019 2:22 PM CDT) Sodium 140 135 - 145 mmol/L [facility] Potassium 3.5 3.3 - 5.1 mmol/L [facility] Chloride 107 96 - 108 mmol/L [facility] Carbon Dioxide 23 22 - 32 mmol/L [facility] Anion Gap 10 7 - 16 [facility] Glucose 155(H) 70 - 100 mg/dL [facility] BUN 23 8 - 25 mg/dL [facility] Creatinine 1.3 0.5 - 1.3 mg/dL [facility] Comment: NOTE: Estimated GFR (Cockroft-Gault) will NOT be calculated unless patient Height and Weight were entered. Also, Kidney Disease Stage (GFR) and Estimated GFR (Cockroft-Gault) will NOT be calculated if Creatinine result is <0.2. Kidney Disease Stage 57 mL/MIN [facility] Comment: NOTE; ??The GFR is an estimated value using the creatinine, sex, age, and race of the patient. THE Estimated Kidney Disease GFR is validated for AGES 18-70 YEARS STAGE ?mL/Min ?DESCRIPTION ??1 ?90 mL/min or more ?Normal or elevated GFR ??2 ? 60-89 mL/min ?Mildly decreased GFR ??3 ? 30-59 mL/min ?Moderately decreased GFR ??4 ? 15-29 mL/min ?Severely decreased GFR ??5 ? <15 mL/min ? Kidney failure or on dialysis Est GFR (Cockcroft-G) 64 ml/MIN [facility] Comment: Estimated GFR(Cockroft-Gault)is used to calculate patient medication dosage Calcium 9.3 8.6 - 10.3 mg/dL [facility] Total Protein 6.1(L) 6.4 - 8.3 g/dL [facility] Albumin 3.6 3.5 - 5.0 g/dL [facility] Globulin 2.5 2.3 - 3.5 gm/dL [facility] Albumin/Globulin Ratio 1.4 1.1 - 1.8 [facility] Total Bilirubin 0.6 0.0 - 1.2 mg/dL [facility] AST 23 0 - 40 U/L [facility] ALT 21 0 - 41 U/L [facility] Alkaline Phosphatase 99 40 - 129 U/L [facility] 08/17/2019 2:22 PM CDT 08/17/2019 2:28 PM CDT Narrative Resulting Agency Comment ER Becky Garner PA LAB BLOOD ORDERABLES Butch mary Result - Final [address] [phone] * Lipase (08/17/2019 2:22 PM CDT) Lipase 27 13 - 60 U/L [facility] 08/17/2019 2:22 PM CDT 08/17/2019 2:28 PM CDT Narrative Resulting Agency Comment ER Leanna Hinojosa [employer] LAB BLOOD ORDERABLES Final R esult [address] [phone] * (ABNORMAL) CBC with auto differential (08/17/2019 2:22 PM CDT) WBC 8.4 3.8 - 9.9 X10 3/ul [facility] RBC 4.68 4.30 - 5.80 x10 6/ul [facility] Hemoglobin 14.1 13.0 - 17.5 g/dL [facility] Hct 41.8 38.9 - 50.3 % [facility] MCV 89.3 81.3 - 96.4 fl [facility] MCH 30.1 27.1 - 33.3 pg [facility] MCHC 33.7 32.3 - 35.7 g/dl [facility] RDW 14.0 11.1 - 14.9 % [facility] Plt Count 138(L) 150 - 400 x10 3/ul [facility] MPV 10.7 9.1 - 12.3 fl [facility] Neut % 83.9 % [facility] Immature Gran % 0.2 % [facility] Lymph % 10.2 % [facility] Candler % 3.7 % [facility] Eos % 1.5 % [facility] AUTO BASO % 0.5 % [facility] NEUTROPHIL ABS # 7.1(H) 1.7 - 6.5 x10 3/ul [facility] Immature Gran # 0.0 0.0 - 0.1 x10 3/ul [facility] Absolute Lymphs (auto) 0.9 0.8 - 3.3 x10 3/ul [facility] Absolute Monos (auto) 0.3 0.2 - 0.8 x10 3/ul [facility] Absolute Eos (auto) 0.1 0.0 - 0.5 x10 3/ul [facility] BASOPHIL ABS # 0.0 0.0 - 0.1 x10 3/ul [facility] Nucleat RBC Rel Count 0.0 #/100WBC [facility] NRBC abs 0.00 0.00 - 0.01 x10 3/ul [facility] Absolute Neutrophils 7,100 200 - 8,000 /ul [facility] 08/17/2019 2:22 PM CDT 08/17/2019 2:28 PM CDT Narrative Resulting Agency Comment ER Leanna Hinojosa [employer] SAL[employer] LAB BLOOD ORDERABLES Final R esult Performing Organization Address City/[facility] de Phone Number [facility] [address] [place] [address], [facility] [phone] * ECG 12 lead (08/17/2019 1:48 PM CDT) Ventricular Rate EKG/Min 52 BPM ER RADIOLOGY Atrial Rate 52 BPM [facility] IN-Interval (MSEC) 206 ms [facility] QRS-Interval (MSEC) 176 ms [facility] QT-Interval (MSEC) 536 ms [facility] QTc 498 ms ER RADIOLOGY P [place] 48 degrees ER RADIOLOGY R [place] -19 degrees ER RADIOLOGY T [place] 96 degrees ER RADI[facility] Diagnosis Sinus bradycardia Left bundle branch block Abnormal ECG No previous ECGs available [facility] 08/17/2019 1:48 PM CDT 08/17/2019 5:31 PM CDT Narrative Resulting Agency Comment KEN Leanna Hinojosa [employer] SAL[employer]ERSON ECG ORDERABLES Final Result Performing Organization Address [facility] de Phone Number ER RADIOLOGY * CTA CEREBRAL ARTERIES (08/17/2019 12:00 AM CDT) Anatomical Region Laterality Modality Computed Tomogra phy 08/17/2019 4:39 PM CDT Narrative 08/17/2019 4:58 PM CDT Patient Name: YOSEF BROWN ?Ordering Dr: Becky Garner PA-C ?? D.O.B: 1945 ? Exam Date: 04/15/20 ?? 0000 ?? Age: 73 ?Sex: Male ? MR#: [id number] ?? Loc: ? RADIOLOGY REPORT ?? Order #[id number] ?? CT Scan ? CTA Cerebral Arteries w Cont ? Signed ?? EXAM DESCRIPTION: ??CTA Carotids w Contrast; CTA Cerebral Arteries w Cont ? REASON FOR STUDY: ??Dizziness 1 hour prior to arrival. ? TECHNIQUE: ??Post IV contrast scanning, thin section axial imaging from the ?? great vessel origins through the brain. ??3D MIP images rendered on scanning ?? unit and reviewed at time of interpretation. ??Carotid stenosis measurements ?? are based on NASCET criteria. ? Automated exposure control was used as a dose optimization technique for this ?? examination. ? CONTRAST TYPE/DOSE: ??100 cc Optiray 350 injected via left forearm. ? COMPARISON: ??CT head 08/17/2019. ? FINDINGS: ? CAROTID AND VERTEBRAL ARTERIES: ? RIGHT CAROTIDS: Atherosclerosis at the carotid bulb but no flow limiting ?? stenosis or occlusion. ? LEFT CAROTIDS: Mild atherosclerosis at the carotid bulb but no flow limiting ?? stenosis or occlusion. ? LEFT VERTEBRAL: Codominant without ostial stenosis. ??Tortuosity of the V1 ?? segment. ??The V1, V2 and V3 segments are patent. ? RIGHT VERTEBRAL: Codominant without ostial stenosis. ??The V1, V2 and V3 ?? segments are patent. ? AORTIC ARCH: Atherosclerosis. ??Bovine configuration with the innominate and ?? left common carotid artery sharing a common origin. ??No subclavian artery ?? stenosis. ? INCLUDED LUNGS: Grossly clear. ? NECK SOFT TISSUE: No mass or lymphadenopathy. ??Scattered bubbles of air within ?? the neck and face are likely iatrogenic from IV placement. ??If necessary, a ?? follow-up could be obtained to ensure resolution. ??No inflammation or fluid ?? collections are noted otherwise. ? OTHER: No other significant finding. ? INTRACRANIAL VESSELS: ? [place]: The petrous, cavernous and supraclinoid internal carotid ?? arteries are unremarkable. ??The anterior and middle cerebral artery ?? bifurcations are normal. ??There is no flow limiting stenosis or large vessel ?? occlusion identified. ??No intracranial aneurysm is identified. ? POSTERIOR CIRCULATION: The intradural vertebral and basilar arteries are ?? patent. ??Superior cerebellar and posterior cerebral arteries are also patent. ? BRAIN: Air bubbles within the cavernous sinuses again is likely iatrogenic ?? from IV placement. ??As stated previously, a follow-up could be obtained to ?? ensure resolution. ? No enhancement is identified. ? IMPRESSION: ??CAROTID CTA: ? 1. ??No flow limiting stenosis or occlusion within the neck. ? INTRACRANIAL CTA: ? 2. ??No flow limiting stenosis, large vessel occlusion or evidence of an ?? intracranial aneurysm. ? THIS IS AN ELECTRONICALLY VERIFIED FINAL REPORT ?? 08/17/2019 4:58 PM - Electronically signed by Fran Morton D.O. ?? Fran Morton D.O. ? D: ??08/17/2019 4:58 PM ?? T: ? Report ID: [id number] ?? Reading Location: ??[id number] ? REPORT ELECTRONICALLY SIGNED IN OTHER VENDOR SYSTEM ?? Resulting Agency Comment E Procedure Note Fran Morton DO - 08/17/2019 Patient Name: YOSEF BROWN Dr: Becky Garner PA-C, D.O.B: 1945 Exam Date: 08/17/19 0000 Age: 73 Sex: Male MR#: [id number] Loc: RADIOLOGY REPORT Order #[id number] CT Scan CTA Cerebral Arteries w Cont Signed EXAM DESCRIPTION: CTA Carotids w Contrast; CTA Cerebral Arteries w Cont REASON FOR STUDY: Dizziness 1 hour prior to arrival. TECHNIQUE: Post IV contrast scanning, thin section axial imaging fromthe great vessel origins through the brain. 3D MIP images rendered onscanning unit and reviewed at time of interpretation. Carotid stenosismeasurements are based on NASCET criteria. Automated exposure control was used as a dose optimization technique forthis examination. CONTRAST TYPE/DOSE: 100 cc Optiray 350 injected via left forearm. COMPARISON: CT head 08/17/2019. FINDINGS: CAROTID AND VERTEBRAL ARTERIES: RIGHT CAROTIDS: Atherosclerosis at the carotid bulb but no flow limiting stenosis or occlusion. LEFT CAROTIDS: Mild atherosclerosis at the carotid bulb but no flowlimiting stenosis or occlusion. LEFT VERTEBRAL: Codominant without ostial stenosis. Tortuosity of the V1 segment. The V1, V2 and V3 segments are patent. RIGHT VERTEBRAL: Codominant without ostial stenosis. The V1, V2 and V3 segments are patent. AORTIC ARCH: Atherosclerosis. Bovine configuration with the innominateand left common carotid artery sharing a common origin. No subclavian artery stenosis. INCLUDED LUNGS: Grossly clear. NECK SOFT TISSUE: No mass or lymphadenopathy. Scattered bubbles of airwithin the neck and face are likely iatrogenic from IV placement. If necessary,a follow-up could be obtained to ensure resolution. No inflammation orfluid collections are noted otherwise. OTHER: No other significant finding. INTRACRANIAL VESSELS: [place]: The petrous, cavernous and supraclinoid internalcarotid arteries are unremarkable. The anterior and middle cerebral artery bifurcations are normal. There is no flow limiting stenosis or largevessel occlusion identified. No intracranial aneurysm is identified. POSTERIOR CIRCULATION: The intradural vertebral and basilar arteries are patent. Superior cerebellar and posterior cerebral arteries are alsopatent. BRAIN: Air bubbles within the cavernous sinuses again is likelyiatrogenic from IV placement. As stated previously, a follow-up could be obtainedto ensure resolution. No enhancement is identified. IMPRESSION: CAROTID CTA: 1. No flow limiting stenosis or occlusion within the neck. INTRACRANIAL CTA: 2. No flow limiting stenosis, large vessel occlusion or evidence of an intracranial aneurysm. THIS IS AN ELECTRONICALLY VERIFIED FINAL REPORT 08/17/2019 4:58 PM - Electronically signed by Fran Morton D.O. T: Report ID: [id number] Reading Location: [place] [address] REPORT ELECTRONICALLY SIGNED IN OTHER VENDOR SYSTEM Becky WIN IMYeimy CT PROCEDURES Final Result * CTA Neck W Contrast (08/17/2019 12:00 AM CDT) Anatomical Region Laterality Modality Head and Neck N/A Computed Tomogra phy 08/17/2019 4:39 PM CDT Narrative 08/17/2019 4:58 PM CDT Patient Name: YOSEF BROWN ?Ordering Becky [place] PA-C ?? D.O.B: 1945 ? Exam Date: 08/17/19 ?? 0000 ?? Age: 73 ?Sex: Male ? MR#: [id number] ?? Loc: ? RADIOLOGY REPORT ?? Order #[id number] ?? CT Scan ? CTA Carotids w Contrast ? Signed ?? EXAM DESCRIPTION: ??CTA Carotids w Contrast; CTA Cerebral Arteries w Cont ? REASON FOR STUDY: ??Dizziness 1 hour prior to arrival. ? TECHNIQUE: ??Post IV contrast scanning, thin section axial imaging from the ?? great vessel origins through the brain. ??3D MIP images rendered on scanning ?? unit and reviewed at time of interpretation. ??Carotid stenosis measurements ?? are based on NASCET criteria. ? Automated exposure control was used as a dose optimization technique for this ?? examination. ? CONTRAST TYPE/DOSE: ??100 cc Optiray 350 injected via left forearm. ? COMPARISON: ??CT head 08/17/2019. ? FINDINGS: ? CAROTID AND VERTEBRAL ARTERIES: ? RIGHT CAROTIDS: Atherosclerosis at the carotid bulb but no flow limiting ?? stenosis or occlusion. ? LEFT CAROTIDS: Mild atherosclerosis at the carotid bulb but no flow limiting ?? stenosis or occlusion. ? LEFT VERTEBRAL: Codominant without ostial stenosis. ??Tortuosity of the V1 ?? segment. ??The V1, V2 and V3 segments are patent. ? RIGHT VERTEBRAL: Codominant without ostial stenosis. ??The V1, V2 and V3 ?? segments are patent. ? AORTIC ARCH: Atherosclerosis. ??Bovine configuration with the innominate and ?? left common carotid artery sharing a common origin. ??No subclavian artery ?? stenosis. ? INCLUDED LUNGS: Grossly clear. ? NECK SOFT TISSUE: No mass or lymphadenopathy. ??Scattered bubbles of air within ?? the neck and face are likely iatrogenic from IV placement. ??If necessary, a ?? follow-up could be obtained to ensure resolution. ??No inflammation or fluid ?? collections are noted otherwise. ? OTHER: No other significant finding. ? INTRACRANIAL VESSELS: ? [place]: The petrous, cavernous and supraclinoid internal carotid ?? arteries are unremarkable. ??The anterior and middle cerebral artery ?? bifurcations are normal. ??There is no flow limiting stenosis or large vessel ?? occlusion identified. ??No intracranial aneurysm is identified. ? POSTERIOR CIRCULATION: The intradural vertebral and basilar arteries are ?? patent. ??Superior cerebellar and posterior cerebral arteries are also patent. ? BRAIN: Air bubbles within the cavernous sinuses again is likely iatrogenic ?? from IV placement. ??As stated previously, a follow-up could be obtained to ?? ensure resolution. ? No enhancement is identified. ? IMPRESSION: ??CAROTID CTA: ? 1. ??No flow limiting stenosis or occlusion within the neck. ? INTRACRANIAL CTA: ? 2. ??No flow limiting stenosis, large vessel occlusion or evidence of an ?? intracranial aneurysm. ? THIS IS AN ELECTRONICALLY VERIFIED FINAL REPORT ?? 08/17/2019 4:58 PM - Electronically signed by Fran Morton D.O. ?? Fran Morton D.O. ? D: ??08/17/2019 4:58 PM ?? T: ? Report ID: [id number] ?? Reading Location: ??[id number] ? REPORT ELECTRONICALLY SIGNED IN OTHER VENDOR SYSTEM ?? Resulting Agency Comment E Procedure Note Fran Morton DO - 08/17/2019 Patient Name: YOSEF BROWN Dr: Becky Garner PA-C, D.O.B: 1945 Exam Date: 08/17/19 0000 Age: 73 Sex: Male MR#: [id number] Loc: RADIOLOGY REPORT Order #[id number] CT Scan CTA Carotids w Contrast Signed EXAM DESCRIPTION: CTA Carotids w Contrast; CTA Cerebral Arteries w Cont REASON FOR STUDY: Dizziness 1 hour prior to arrival. TECHNIQUE: Post IV contrast scanning, thin section axial imaging fromthe great vessel origins through the brain. 3D MIP images rendered onscanning unit and reviewed at time of interpretation. Carotid stenosismeasurements are based on NASCET criteria. Automated exposure control was used as a dose optimization technique forthis examination. CONTRAST TYPE/DOSE: 100 cc Optiray 350 injected via left forearm. COMPARISON: CT head 08/17/2019. FINDINGS: CAROTID AND VERTEBRAL ARTERIES: RIGHT CAROTIDS: Atherosclerosis at the carotid bulb but no flow limiting stenosis or occlusion. LEFT CAROTIDS: Mild atherosclerosis at the carotid bulb but no flowlimiting stenosis or occlusion. LEFT VERTEBRAL: Codominant without ostial stenosis. Tortuosity of the V1 segment. The V1, V2 and V3 segments are patent. RIGHT VERTEBRAL: Codominant without ostial stenosis. The V1, V2 and V3 segments are patent. AORTIC ARCH: Atherosclerosis. Bovine configuration with the innominateand left common carotid artery sharing a common origin. No subclavian artery stenosis. INCLUDED LUNGS: Grossly clear. NECK SOFT TISSUE: No mass or lymphadenopathy. Scattered bubbles of airwithin the neck and face are likely iatrogenic from IV placement. If necessary,a follow-up could be obtained to ensure resolution. No inflammation orfluid collections are noted otherwise. OTHER: No other significant finding. INTRACRANIAL VESSELS: [place]: The petrous, cavernous and supraclinoid internalcarotid arteries are unremarkable. The anterior and middle cerebral artery bifurcations are normal. There is no flow limiting stenosis or largevessel occlusion identified. No intracranial aneurysm is identified. POSTERIOR CIRCULATION: The intradural vertebral and basilar arteries are patent. Superior cerebellar and posterior cerebral arteries are alsopatent. BRAIN: Air bubbles within the cavernous sinuses again is likelyiatrogenic from IV placement. As stated previously, a follow-up could be obtainedto ensure resolution. No enhancement is identified. IMPRESSION: CAROTID CTA: 1. No flow limiting stenosis or occlusion within the neck. INTRACRANIAL CTA: 2. No flow limiting stenosis, large vessel occlusion or evidence of an intracranial aneurysm. THIS IS AN ELECTRONICALLY VERIFIED FINAL REPORT 08/17/2019 4:58 PM - Electronically signed by Fran Morton D.O. T: Report ID: [id number] Reading Location: [id number] REPORT ELECTRONICALLY SIGNED IN OTHER VENDOR SYSTEM Becky WIN IMG CT PROCEDURES Final Result * XR Chest 1 View (08/17/2019 12:00 AM CDT) Anatomical Region Laterality Modality Body, Chest N/A Radiographic Cris ging 08/17/2019 2:37 PM CDT Narrative 08/17/2019 2:38 PM CDT Patient Name: YOSEF BROWN ?Ordering Dr: Leanna Hinojosa CNP ?? D.O.B: 1945 ? Exam Date: 08/17/19 ?? 0000 ?? Age: 73 ?Sex: Male ? MR#: [id number] ?? Loc: ? RADIOLOGY REPORT ?? Order #[id number] ?? Radiology ? Chest 1 View Portable ? Signed ?? EXAM DESCRIPTION: ??Chest 1 View Portable ? REASON FOR STUDY: ??Chest pain, weakness and dizziness today. ? TECHNIQUE: ??Frontal radiographic view of the chest acquired. ? COMPARISON: ??None. ? FINDINGS: ? LUNGS/PLEURA: Low lung volumes with bronchovascular crowding. ??Apparent ?? increased density at the lung bases most likely an artifact due to portable ?? technique. ??There is no focal pneumonic consolidation, pleural effusion or ?? pneumothorax. ? HEART/MEDIASTINUM: The heart is not enlarged. ??There is a hiatal hernia. ? Calcified plaque at the aortic knob. ? HARDWARE/LINES/TUBES: None. ? BONES: Degenerative changes of the bilateral shoulders. ? IMPRESSION: ??Low lung volumes. ??No focal pneumonic consolidation. ? THIS IS AN ELECTRONICALLY VERIFIED FINAL REPORT ?? 08/17/2019 2:38 PM - Electronically signed by Jaydon Marr D.O. ?? Jaydon Marr D.O. ? AP ?? D: ??08/17/2019 2:38 PM ?? T: ? Report ID: [id number] ?? Reading Location: ??[id number] ? REPORT ELECTRONICALLY SIGNED IN OTHER VENDOR SYSTEM ?? Resulting Agency Comment E Procedure Note Jaydon Marr, DO - 08/17/2019 Patient Name: YOSEF BROWN Dr: Leanna Hinojosa CNP, D.O.B: 1945 Exam Date: 08/17/19 0000 Age: 73 Sex: Male MR#: [id number] Loc: RADIOLOGY REPORT Order #[id number] Radiology Chest 1 View Portable Signed EXAM DESCRIPTION: Chest 1 View Portable REASON FOR STUDY: Chest pain, weakness and dizziness today. TECHNIQUE: Frontal radiographic view of the chest acquired. COMPARISON: None. FINDINGS: LUNGS/PLEURA: Low lung volumes with bronchovascular crowding. Apparent increased density at the lung bases most likely an artifact due toportable technique. There is no focal pneumonic consolidation, pleural effusionor pneumothorax. HEART/MEDIASTINUM: The heart is not enlarged. There is a hiatal hernia. Calcified plaque at the aortic knob. HARDWARE/LINES/TUBES: None. BONES: Degenerative changes of the bilateral shoulders. IMPRESSION: Low lung volumes. No focal pneumonic consolidation. THIS IS AN ELECTRONICALLY VERIFIED FINAL REPORT 08/17/2019 2:38 PM - Electronically signed by Jaydon DALE T: Report ID: [id number] Reading Location: [id number] [id number] REPORT ELECTRONICALLY SIGNED IN OTHER VENDOR SYSTEM us Leanna Hinojosa TRAILERS AND MOTOR HOMES SALESPERSON IMG XR PROCEDURES Final Resu lt * CT Head WO Contrast (08/17/2019 12:00 AM CDT) Anatomical Region Laterality Modality Head and Neck N/A Computed Tomogra phy 08/17/2019 2:16 PM CDT Narrative 08/17/2019 2:22 PM CDT Patient Name: YOSEF BROWN ?Ordering Dr: Leanna Hinojosa COUNTER CASER ?? D.O.B: 1945 ? Exam Date: 04/15/20 ?? 0000 ?? Age: 73 ?Sex: Male ? MR#: [id number] ?? Loc: ? RADIOLOGY REPORT ?? Order #[id number] ?? CT Scan ? CT Head WO IV Contrast ? Signed ?? EXAM DESCRIPTION: ??CT Head WO IV Contrast ? REASON FOR STUDY: ? TECHNIQUE: ??Axial images acquired through the brain without intravenous ?? contrast. ??Images stored on PACS. ?? Automated exposure control was used as a ?? dose optimization technique for this examination. ? COMPARISON: ??Dizziness ? FINDINGS: ? There is no acute intra or extra hemorrhage. ??The ventricles are normal in ?? size, shape and morphology. ??There is mild cerebral atrophy. ??Periventricular ?? white matter hypoattenuation is consistent with chronic small vessel disease. ? There is a small lacunar infarct involving the left internal capsule. ??Basal ?? ganglia calcifications are noted. ??The turcios-white matter differentiation is ?? normal. ??There is no mass effect or midline shift. ??The basilar cisterns are ?? normal. ? The orbits are normal. The mastoids are well aerated. ??The paranasal sinuses ?? are normal. ??Small foci of gas are noted along the right masseter muscle. ? There is no underlying acute fracture or evidence of laceration. ? IMPRESSION: ? 1. ??No acute intracranial process. ? 2. ??Small foci of gas along the right masseter muscle. ??There is no evidence ?? of associated fracture or are soft tissue laceration, these may represent ex ?? vacuo foci of nitrogen. ? THIS IS AN ELECTRONICALLY VERIFIED FINAL REPORT ?? 08/17/2019 2:22 PM - Electronically signed by Jalen Salgado ?? Jalen Salgado ? MF ?? D: ??08/17/2019 2:22 PM ?? T: ? Report ID: [id number] ?? Reading Location: ??[id number] ? REPORT ELECTRONICALLY SIGNED IN OTHER VENDOR SYSTEM ?? Resulting Agency Comment E Procedure Note Jalen Salgado MD - 08/17/2019 Patient Name: YOSEF BROWN Julio Dr: Leanna Hinojosa CNP, D.O.B: 1945 Exam Date: 08/17/19 0000 Age: 73 Sex: Male MR#: [id number] Loc: RADIOLOGY REPORT Order #[id number] CT Scan CT Head WO IV Contrast Signed EXAM DESCRIPTION: CT Head WO IV Contrast REASON FOR STUDY: TECHNIQUE: Axial images acquired through the brain without intravenous contrast. Images stored on PACS. Automated exposure control was usedas a dose optimization technique for this examination. COMPARISON: Dizziness FINDINGS: There is no acute intra or extra hemorrhage. The ventricles are normalin size, shape and morphology. There is mild cerebral atrophy.Periventricular white matter hypoattenuation is consistent with chronic small vesseldisease. There is a small lacunar infarct involving the left internal capsule.Basal ganglia calcifications are noted. The turcios-white matter differentiationis normal. There is no mass effect or midline shift. The basilar cisternsare normal. The orbits are normal. The mastoids are well aerated. The paranasalsinuses are normal. Small foci of gas are noted along the right masseter muscle. There is no underlying acute fracture or evidence of laceration. IMPRESSION: 1. No acute intracranial process. 2. Small foci of gas along the right masseter muscle. There is noevidence of associated fracture or are soft tissue laceration, these may representex vacuo foci of nitrogen. THIS IS AN ELECTRONICALLY VERIFIED FINAL REPORT 08/17/2019 2:22 PM - Electronically signed by Jalen Salgado T: Report ID: [id number] Reading Location: [id number] REPORT ELECTRONICALLY SIGNED IN OTHER VENDOR SYSTEM Leanna Hinojosa TRAILERS AND MOTOR HOMES SALESPERSON IMG CT PROCEDURES Final Resu lt documented in this encounter Visit Diagnoses Not on filedocumented in this encounter Care Teams Traffic Operations Manager Relationship Specialty Start Date End Date Ronald Lam DO PCP - General 07/07/18 documented as of this encounter
--- OUTSIDE RECORDS SUMMARY | 2024-04-20 01:07 | XMS_ITS | Encounter Summary ---
Author Organization [facility] Address [address] [facility] [address] [place] [address] Care Team Providers Care Lasting Room Machine Operator Name Role Phone Ronald Lam DO Primary Care Provider [phone] Encounter Details Date Type Department Care Team (Late st Contact Info) Description 01/05/2019 Telephone [facility] [address] [facility] [address] [place] [address] Hector Desai MD [address] [address] Social History Tobacco Use Types Packs/Day Years Used Date Smoking Tobacco: Never Smokeless Tobacco: Never Alcohol Use Standard Drinks/Week Comments Not Currently 0 (1 standard drink = 0.6 oz pur e alcohol) Sex and Gender Information Value Date Recorded Sex Assigned at Not on file Legal Sex Male 12:20 AM COMMAND AND CONTROL OFFICER Gender Identity Not on file Sexual Orientation Not on file documented as of this encounter Miscellaneous Notes * Telephone Encounter - Nicole Wright MA - 01/05/2019 10:21 AM CDT Samples up front, patient aware. * Telephone Encounter - Verónica Dietrich - 01/05/2019 8:57 AM CDT Pt called for samples of eliquis 5 mg tabs. cb [phone] documented in this encounter Plan of Treatment Not on file documented as of this encounter Visit Diagnoses Not on filedocumented in this encounter Care Teams Lasting Room Machine Operator Relationship Specialty Start Date End Date Ronald Lam DO PCP - General 07/07/18 documented as of this encounter
--- OUTSIDE RECORDS SUMMARY | 2024-04-20 01:07 | XMS_ITS | Encounter Summary ---
Author Organization [facility] Address [address] [facility] [address] [facility] [address] [place] [address] Care Team Providers Care Independent Insurance Adjuster Name Role Phone Ronald Lam DO Primary Care Provider [phone] Encounter Details Date Type Department Care Team (Late st Contact Info) Description 12/14/2018 Telephone [facility] [address] [phone] Hector Desai MD [id number] [place] [address] Social History Tobacco Use Types Packs/Day Years Used Date Smoking Tobacco: Never Smokeless Tobacco: Never Alcohol Use Standard Drinks/Week Comments Not Currently 0 (1 standard drink = 0.6 oz pur e alcohol) Sex and Gender Information Value Date Recorded Sex Assigned at Not on file Legal Sex Male 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 * Telephone Encounter - Genesis Leigh - 12/14/2018 10:02 AM CDT Patient's prescription for ezetimibe was sent to the wrong pharmacy. [facility] resend to [facility] [address]. Please take out the pharmacy in [facility]. He does not get prescriptions there any more. Call back# [phone] documented in this encounter Plan of Treatment Not on file documented as of this encounter Visit Diagnoses Not on filedocumented in this encounter Care Teams Independent Insurance Adjuster Relationship Specialty Start Date End Date Ronald Lam DO PCP - General 07/07/18 documented as of this encounter
--- OUTSIDE RECORDS SUMMARY | 2024-04-20 01:07 | XMS_ITS | Encounter Summary ---
Author Organization [facility] Address [address] [facility] [address] [place] [address] Care Team Providers Care Cruller Maker Machine Name Role Phone Ronald Lam DO Primary Care Provider [phone] Encounter Details Date Type Department Care Team (Late st Contact Info) Description 12/15/2018 Telephone [facility] [address] [phone] Hector Desai MD [address] [address] Social History Tobacco Use Types Packs/Day Years Used Date Smoking Tobacco: Never Smokeless Tobacco: Never Alcohol Use Standard Drinks/Week Comments Not Currently 0 (1 standard drink = 0.6 oz pur e alcohol) Sex and Gender Information Value Date Recorded Sex Assigned at Not on file Legal Sex Male 12:20 AM HORTICULTURAL THERAPIST Gender Identity Not on file Sexual Orientation Not on file documented as of this encounter Miscellaneous Notes * Telephone Encounter - Darling Toussaint RN - 12/15/2018 11:11 AM CDT Spoke with patient. Scheduled for prostate biopsy on 01/10/[address] Moffett. States that he received a letter stating that he will need to hold blood thinners 5 days prior to procedure. Patient recently underwent PCI on 07/08/18. Discussed with patient the risk of holding DAPT prior to one year post PCI. Patient requests we call Dr. Moffett to see if this procedure can wait or if it is urgent. Left message for Dr. Moffett's contract assistant requesting a call back to discuss. * Telephone Encounter - ScottyAshleigh Zuniga - 12/15/2018 10:54 AM CDT Pt is schedule to have prostate biopsy on 01/10/19, pt wants to know if he needs to hold his blood thinners. [phone] documented in this encounter Plan of Treatment Not on file documented as of this encounter Visit Diagnoses Not on filedocumented in this encounter Care Teams Cruller Maker Machine Relationship Specialty Start Date End Date Ronald Lam DO PCP - General 07/07/18 documented as of this encounter
--- OUTSIDE RECORDS SUMMARY | 2024-04-20 01:07 | XMS_ITS | Encounter Summary ---
Author Organization [facility] Address [address] [facility] [address] [facility] [address] [place] [address] Care Team Providers Care Section Gang Name Role Phone Ronald Lam DO Primary Care Provider [phone] Donald Ugalde STORE OPERATIONS SPECIALIST Unavailable Mary Kate Ochoa DNP Unavailable Tucker Fry STORE OPERATIONS SPECIALIST Unavailable [phone] Encounter Details Date Type Department Care Team (Late st Contact Info) Description 08/20/2018 Telephone [facility] [address] [phone] Hector Desai MD [address] [place] [address] Social History Tobacco Use Types Packs/Day Years Used Date Smoking Tobacco: Never Smokeless Tobacco: Never Alcohol Use Standard Drinks/Week Comments Not Currently 0 (1 standard drink = 0.6 oz pur e alcohol) Sex and Gender Information Value Date Recorded Sex Assigned at Not on file Legal Sex Male 12:20 AM MENTAL HEALTH CONSULTANT Gender Identity Not on file Sexual Orientation Not on file documented as of this encounter Miscellaneous Notes * Telephone Encounter - Aleisha Kaur RN - 08/20/2018 11:10 AM CDT told pt t leaf size picker samples int he office and discuss with dr Desai at upcoming office visit. * Telephone Encounter - Ashleigh Whyte - 08/20/2018 10:46 AM CDT Pt called to inform DK the coast of Eliquis is too expensive $ 220 per month, pt wants to know if DK can prescribe something equivalent to to Elquis 5 mg. Pt cb [phone] documented in this encounter Plan of Treatment Not on file documented as of this encounter Visit Diagnoses Not on filedocumented in this encounter Care Teams Section Gang Relationship Specialty Start Date End Date Ronald Lam DO PCP - General 07/07/18 Donald Ugalde, STORE OPERATIONS SPECIALIST [address] [facility] [address] [place] [address] CHAP Outpatient Firer Watertender 07/12/18 09/12/18 Mary aKte Ochoa, STUART [address] [facility] [address] [place] [address] Nurse Practitioner Internal Medicine 07/12/18 09/12/18 Tucker Fry, STORE OPERATIONS SPECIALIST [address] [facility] [address] [place] [address] CHAP Outpatient Firer Watertender 07/12/18 09/12/18 documented as of this encounter
--- OUTSIDE RECORDS SUMMARY | 2024-04-20 01:07 | XMS_ITS | Encounter Summary ---
Author Organization [facility] Address [address] [facility] [address] [place] [address] Care Team Providers Care Central Office Operator Name Role Phone Ronald Lam DO Primary Care Provider Encounter Details Date Type Department Care Team (Late st Contact Info) Description 07/20/2019 Telephone [facility] Cardiology [address] [facility] [address] [place] [address] Hector Desai MD [address] [phone] Social History Tobacco Use Types Packs/Day Years Used Date Smoking Tobacco: Never Smokeless Tobacco: Never Alcohol Use Standard Drinks/Week Comments Not Currently 0 (1 standard drink = 0.6 oz pur e alcohol) Sex and Gender Information Value Date Recorded Sex Assigned at Not on file Legal Sex Male 12:20 AM MANAGER AUDIT Gender Identity Not on file Sexual Orientation Not on file documented as of this encounter Miscellaneous Notes * Telephone Encounter - Elaine Trejo MA - 07/20/2019 4:15 PM CDT No samples at this time. Patient notified. * Telephone Encounter - Indira Krishnamurthy - 07/20/2019 3:51 PM CDT Patient called requesting samples of : eliquis 5 mg tabs [phone] documented in this encounter Plan of Treatment Not on file documented as of this encounter Visit Diagnoses Not on filedocumented in this encounter Care Teams Central Office Operator Relationship Specialty Start Date End Date Ronald Lam DO PCP - General 07/07/18 documented as of this encounter
--- OUTSIDE RECORDS SUMMARY | 2024-04-20 01:07 | XMS_ITS | Encounter Summary ---
Author Organization [facility] Address [address] [facility] [address] [place] [address] Care Team Providers Care Dispatcher Automobile Rental Name Role Phone Ronald Lam DO Primary Care Provider [phone] Encounter Details Date Type Department Care Team (Late st Contact Info) Description 12/14/[address] [facility] Cardiology [address] [facility] [address] [place] [address] Hector Desai MD [address] [place] [phone] Social History Tobacco Use Types Packs/Day Years Used Date Smoking Tobacco: Never Smokeless Tobacco: Never Alcohol Use Standard Drinks/Week Comments Not Currently 0 (1 standard drink = 0.6 oz pur e alcohol) Sex and Gender Information Value Date Recorded Sex Assigned at Not on file Legal Sex Male 12:20 AM LABELING ASSOCIATE Gender Identity Not on file Sexual Orientation Not on file documented as of this encounter Miscellaneous Notes * Telephone Encounter - Emmanuelle Ford RN - 12/15/2019 2:15 PM CDT I faxed a ac hold form to Dr. Moffett's office. I also called the patient * Telephone Encounter - Jessica Hollins NP - 12/15/2019 11:27 AM CDT Please see previous telephone messages about this. Dr. Desai gave following recommendation regardinghis Eliquis: Okay to hold apixaban 2 days before the procedure. If bleeding risk is high, may hold for 3 days prior to procedure. It looks like there was no recommendation given about his clopidogrel. Therefore, he can hold clopidogrel up to 7 days before procedure. Both clopidogrel and Eliquis should be resumed as soon as possible after the procedure when Dr. Moffett is comfortable with it. * Telephone Encounter - Emmanuelle Ford RN - 12/14/2019 2:51 PM CDT This patient is having a prostate biopsy done on december [address] Moffett is wanting to know about hold on coumadin and plavix. Please advise! * Telephone Encounter - Nisa Dugan - 12/14/2019 2:23 PM CDT Pt has an upcoming Byopsy on 12-21-2019 pt asking if it is ok for him to stop taking the Plavix and Coumadin medication. [phone] documented in this encounter Plan of Treatment Not on file documented as of this encounter Visit Diagnoses Not on filedocumented in this encounter Care Teams Dispatcher Automobile Rental Relationship Specialty Start Date End Date Ronald Lam DO PCP - General 07/07/18 documented as of this encounter
--- OUTSIDE RECORDS SUMMARY | 2024-04-20 01:08 | XMS_ITS | Encounter Summary ---
Author Organization [facility] Address [address] [place] [address] Care Team Providers Care Gluing Pressman Name Role Phone Ronald Lam DO Primary Care Provider [phone] Donald Ugalde PLANT FLOOR AUTOMATION MANAGER Unavailable Mary Kate Ochoa DNP Unavailable Tucker Fry PLANT FLOOR AUTOMATION MANAGER Unavailable Reason for Visit * Reason Comments Follow-up Encounter Details Date Type Department Care Team (Late st Contact Info) Description 07/26/2018 Patient Outreach Transition to Wellness [address] [facility] [address] [place] [address] Tucker Fry, PLANT FLOOR AUTOMATION MANAGER [address] [facility] [address] [place], [place] [id number] Social History Tobacco Use Types Packs/Day Years Used Date Smoking Tobacco: Never Smokeless Tobacco: Never Alcohol Use Standard Drinks/Week Comments Not Currently 0 (1 standard drink = 0.6 oz pur e alcohol) Sex and Gender Information Value Date Recorded Sex Assigned at Not on file Legal Sex Male 12:20 AM STILL PHOTOGRAPHER Gender Identity Not on file Sexual Orientation Not on file documented as of this encounter Plan of Treatment Not on file documented as of this encounter Visit Diagnoses Not on filedocumented in this encounter Care Teams Gluing Pressman Relationship Specialty Start Date End Date Ronald Lam DO PCP - General 07/07/18 Dnoald Ugalde, PLANT FLOOR AUTOMATION MANAGER [address] [place] [address] CHAP Outpatient Ferris Wheel Operator 07/12/18 09/12/18 Mary Kate Ochoa, STUART [address] [facility] [address] [place] [address] Nurse Practitioner Internal Medicine 07/12/18 09/12/18 Tucker Fry, PLANT FLOOR AUTOMATION MANAGER [address] [facility] [address] [place] [address] CHAP Outpatient Ferris Wheel Operator 07/12/18 09/12/18 documented as of this encounter
--- OUTSIDE RECORDS SUMMARY | 2024-04-20 01:08 | XMS_ITS | Encounter Summary ---
Author Organization [facility] Address [address] [place] [address] Care Team Providers Care Mission Worker Name Role Phone Ronald Lam DO Primary Care Provider [phone] Donald Ugalde RECRUITING INTERN Unavailable [phone] Mary Kate Ochoa DNP Unavailable Tucker Fry RECRUITING INTERN Unavailable [phone] Reason for Visit * Reason Comments Follow-up Encounter Details Date Type Department Care Team (Late st Contact Info) Description 07/19/2018 Patient Outreach Transition to Wellness [address] [facility] [address] [place] [address] Tucker Fry, RECRUITING INTERN [address] [facility] [address] [place], [place] [id number] Social History Tobacco Use Types Packs/Day Years Used Date Smoking Tobacco: Never Smokeless Tobacco: Never Alcohol Use Standard Drinks/Week Comments Not Currently 0 (1 standard drink = 0.6 oz pur e alcohol) Sex and Gender Information Value Date Recorded Sex Assigned at Not on file Legal Sex Male 12:20 AM ARTIFICIAL TEETH INSPECTOR Gender Identity Not on file Sexual Orientation Not on file documented as of this encounter Plan of Treatment Not on file documented as of this encounter Visit Diagnoses Not on filedocumented in this encounter Care Teams Mission Worker Relationship Specialty Start Date End Date Ronald Lam DO PCP - General 07/07/18 Donald Ugalde, RECRUITING INTERN [address] [place] [address] CHAP Outpatient Pattern Lease Inspector 07/12/18 09/12/18 Mary Kate Ochoa, STUART [address] [facility] [address] [place] [address] Nurse Practitioner Internal Medicine 07/12/18 09/12/18 Tucker Fry, RECRUITING INTERN [address] [facility] [address] [place] [address] CHAP Outpatient Pattern Lease Inspector 07/12/18 09/12/18 documented as of this encounter
--- OUTSIDE RECORDS SUMMARY | 2024-04-20 01:08 | XMS_ITS | Encounter Summary ---
Author Organization [facility] Medical Group Address [address] [place] [address] Care Team Providers Care Distillery Laborer Name Role Phone Ronald Lam DO Primary Care Provider [phone] Donald Ugalde BASE WAD OPERATOR ADJUSTER Unavailable Mary Kate Ochoa DNP Unavailable [phone] Tucker Fry BASE WAD OPERATOR ADJUSTER Unavailable Reason for Visit * Reason Comments Hospital Follow Up for NSTEMI Encounter Details Date Type Department Care Team (Late st Contact Info) Description 07/29/2018 1:00 PM CDT Office Visit [facility] [address] [place] [address] Jessica Hollins NP [address] [facility] [address] [place] [address] Coronary arteriosclerosis in chitina artery (Primary Dx); Essential hypertension; Chronic kidney disease, unspecified CKD stage; Status post angioplasty with stent; Hospital discharge follow-up Social History Tobacco Use Types Packs/Day Years Used Date Smoking Tobacco: Never Smokeless Tobacco: Never Alcohol Use Standard Drinks/Week Comments Not Currently 0 (1 standard drink = 0.6 oz pur e alcohol) Sex and Gender Information Value Date Recorded Sex Assigned at Not on file Legal Sex Male 12:20 AM INSIDE B2B SALES Gender Identity Not on file Sexual Orientation Not on file documented as of this encounter Last Filed Vital Signs Vital Sign Reading Time Taken Comments Blood Pressure 122/70 07/29/2018 1:17 PM CDT Pulse 58 07/29/2018 1:17 PM CDT Temperature - - Respiratory Rate - - Oxygen Saturation 98% 07/29/2018 1:17 PM CDT Inhaled Oxygen Concentration - - Weight 115.2 kg (254 lb) 07/29/2018 1:17 PM CDT Height 185.4 cm (6' 1 ) 07/29/2018 1:17 PM CDT Body Mass Index 33.51 07/29/2018 1:17 PM CDT documented in this encounter Ordered Prescriptions Prescription Sig Dispense Quantity Refills Last Filled Start Date End Date ticagrelor (BRILINTA) 90 mg tabletIndications:Fede nary arteriosclerosis in chitina artery Take 1 tablet (90 mg total) by mouth 2 (two) times a day 60 tablet 11 07/29/2018 9 documented in this encounter Progress Notes * Jessica Hollins NP - 07/29/2018 1:00 PM CDT [facility] Date of Visit: 07/29/2018 Patient ID: Yosef Chapa 1945 Chief Complaint: Yosef Chapa is a 72 y.o. male comes to the office for hospital follow-up appointment after ACS and subsequent complex PCI. History of Present Illness: Mr. Chapa is a 72-year-old man with a past medical history coronary artery disease, hypertension, hyperlipidemia, LBBB, CKD stage 3, GERD, diverticulitis, RIOS and obesity. He had a stent to the 1st obtuse marginal branch in 2006. At that time his left ventricle has severe anterolateral hypokinesis with EF 50%. He was being followed by Dr. Marr and Dr. Li at that time. Follows with Dr. Cueavs for his CKD. He presented to [facility] on 07/06/2018 with complaints chest pain. He appeared to be having unstable angina, troponins were mildly elevated but were rising. Echo showed hypokinesis of the basal inferior and inferolateral segments with EF 55-60%. [facility] and coronary angiography showed a subtotal complex calcified stenosis of the mid RCA. Angioplasty was performed, but unable to past the the stent. The therefore the procedure was aborted. He was then taken to [facility] for repeat PCI with Dr. Desai on 07/08/2018. Orbital atherectomy of that mid RCA lesion was performed and a 3.0 x 33 mm BARBARA was successfully placed. His postprocedure cou rse was unremarkable. He was started on Brilinta. 07/29/2018 HFU with ECONOMIC DEVELOPMENT COORDINATOR: He comes to the office accompanied by 2 of his daughters for hospital follow-up. He states he is feeling well. He has had no recurrence of chest pain since discharge. He wantsto discuss alternative options to Brilinta that may be more affordable for him. He has been monitoring blood pressures at home showing systolic 120s, diastolic 70s. He has seen Dr. Cuevas since discharge. He is walking 1 mi per day and is interested in being referred to cardiac rehab. Records that I personally reviewed on the day of this visit include: (the interpretation is outlined in the HPI above) July 2018 [facility] admission records as outlined above and [facility] cardiac catheterization report and discharge summary. I have also reviewed: allergies, current medications, [...] patient is not nervous/anxious. Vital Signs: BP 122/70 Pulse 58 Ht 185.4 cm (6' 1 ) Wt 115.2 kg (254 lb) SpO2 98% BMI 33.51 kg/m?? Physical Exam Constitutional: He is oriented to person, place, and time. He appears well- developed and well-nourished. No distress. HENT: Head: Normocephalic and atraumatic. Nose: Nose normal. Mouth/Throat: Mucous membranes are normal. Eyes: Pupils are equal, round, and reactive to light. Conjunctivae and EOM are normal. No scleral icterus. Neck: Normal range of motion. No JVD present. No tracheal deviation present. Cardiovascular: Normal rate, regular rhythm and normal heart sounds. No murmur heard. Right femoral artery puncture site not visible, the area is soft, nontender, no bruit. Pulmonary/Chest: Effort normal and breath sounds normal. No respiratory distress. Abdominal: Soft. Bowel sounds are normal. There is no tenderness. Musculoskeletal: Normal range of motion. He exhibits no edema. Neurological: He is alert and oriented to person, place, and time. Skin: Skin is warm and dry. Psychiatric: He has a normal mood and affect. No Known Allergies Current Outpatient Medications: ??? acetaminophen (TYLENOL) 325 mg tablet, Take 2 tablets (650 mg total) by mouth every 6 (six) hours as needed for pain, Disp: 30 tablet, Rfl: 0 ??? allopurinol (ZYLOPRIM) 300 mg tablet, Take 300 mg by mouth daily ., Disp: , Rfl: ??? aspirin 81 mg tablet, Take 1 tablet (81 mg total) by mouth daily, Disp: 30 tablet, Rfl: 11 ??? carvedilol (COREG) 25 mg tablet, Take 25 mg by mouth 2 (two) times a day with meals ., Disp: , Rfl: ??? losartan-hydroCHLOROthiazide (HYZAAR) 100-12.5 mg per tablet, Take 1 tablet by mouth daily ., Disp: , Rfl: ??? multivitamin capsule, Take 1 capsule by mouth daily ., Disp: , Rfl: ??? simvastatin (ZOCOR) 40 mg tablet, Take 40 mg by mouth nightly ., Disp: , Rfl: ??? temazepam (RESTORIL) 7.5 mg capsule, Take 1 capsule (7.5 mg total) by mouth nightly as needed for sleep, Disp: 30 capsule, Rfl: 0 ??? ticagrelor (BRILINTA) 90 mg tablet, Take 1 tablet (90 mg total) by mouth 2 (two) times a day, Disp: 60 tablet, Rfl: 11 Assessment: Diagnoses and all orders for this visit: Coronary arteriosclerosis in chitina artery (Primary) - ticagrelor (BRILINTA) 90 mg tablet; Take 1 tablet (90 mg total) by mouth 2 (two) times a day Essential hypertension Chronic kidney disease, unspecified CKD stage Status post angioplasty with stent Hospital discharge follow-up Plan/Recommendations: The patient is doing well 3 weeks after complex PCI to the RCA. He has had no recurrence of chest pain. His blood pressure is controlled. He had lipids and BMP performed by his residential concierge a couple of weeks ago. We will request a copy of this be sent to our office for our review. If lipids are notat goal, we will likely recommend changing his simvastatin. Counseling performed at this visit included importance of medication compliance, clopidogrel may beused as an alternative to Brilinta if it is not affordable, however we strongly encouraged her the use of Brilinta, at least for the 1st 3 months after PCI if at all affordable. I sent a script to his pharmacy so he can check pricing to see the Brilinta will be affordable. I will also send a referra l to cardiac rehab. I talked at length with the patient's arms about his goal blood pressure and low-sodium diet. Return to the office to see Dr. Desai in 2 months. Call us sooner with questions or concerns. ALICIA Werner- Nurse Practitioner with [facility] This note is dictated and transcribed using [employer] Software. Psychological Examiner variancesmay occur. Despite proofreading, typographical errors may occur. documented in this encounter Plan of Treatment Not on file documented as of this encounter Visit Diagnoses Diagnosis Coronary arteriosclerosis in chitina artery- Primary Essential hypertension Unspecified essential hypertension Chronic kidney disease, unspecified CKD stage Status post angioplasty with stent Postsurgical percutaneous transluminal coronary angioplasty status Hospital discharge follow-up Other follow-up examination documented in this encounter Discontinued Medications Medication Sig Discontinue Reason Start Date End Da te ticagrelor (BRILINTA) 90 mg tablet Take 1 tablet (90 mg total) by mouth 2 (two) times a day Reorder 07/09/2018 07/29/2018 documented as of this encounter Care Teams Distillery Laborer Relationship Specialty Start Date End Date Ronald Lam DO PCP - General 07/07/18 Donald Ugalde, BASE WAD OPERATOR ADJUSTER [address] [facility] [address] [place] [address] CHAP Outpatient Sales Account Manager 07/12/18 09/12/18 Mary Kate Ochoa, STUART [address] [facility] [address] [place] [address] Nurse Practitioner Internal Medicine 07/12/18 09/12/18 Tucker Fry, BASE WAD OPERATOR ADJUSTER [address] [address] [facility] [address] [place] [address] CHAP Outpatient Sales Account Manager 07/12/18 09/12/18 documented as of this encounter
--- OUTSIDE RECORDS SUMMARY | 2024-04-20 01:08 | XMS_ITS | Encounter Summary ---
Author Organization [facility] Healthcare Address [address] [place] [address] Care Team Providers Care Corporate Legal Manager Name Role Phone Ronald Lam DO Primary Care Provider [phone] Donald Ugalde EXPERIMENTAL DISPLAY BUILDER Unavailable [phone] Mary Kate Ochoa DNP Unavailable Tucker Fry EXPERIMENTAL DISPLAY BUILDER Unavailable [phone] Reason for Visit * Reason Comments Follow-up Encounter Details Date Type Department Care Team (Late st Contact Info) Description 07/12/2018 Patient Outreach Transition to Wellness [address] [facility] [address] [place] [address] Donald Ugalde MSW [address] [facility] [address] [place], [place] [id number] Social History Tobacco Use Types Packs/Day Years Used Date Smoking Tobacco: Never Smokeless Tobacco: Never Alcohol Use Standard Drinks/Week Comments Not Currently 0 (1 standard drink = 0.6 oz pur e alcohol) Sex and Gender Information Value Date Recorded Sex Assigned at Not on file Legal Sex Male 12:20 AM CONSTRUCTION PROJECT ASSISTANT Gender Identity Not on file Sexual Orientation Not on file documented as of this encounter Plan of Treatment Not on file documented as of this encounter Visit Diagnoses Not on filedocumented in this encounter Care Teams Corporate Legal Manager Relationship Specialty Start Date End Date Ronald Lam DO PCP - General 07/07/18 Donald Ugalde, EXPERIMENTAL DISPLAY BUILDER [address] [facility] [address] [place] [address] CARLEE Outpatient Special Education Math Teacher 07/12/18 09/12/18 Mary Kate Ochoa, STUART [address] [address] [facility] [address] [place] [address] Nurse Practitioner Internal Medicine 07/12/18 09/12/18 Tucker Fry, EXPERIMENTAL DISPLAY BUILDER [address] [address] [facility] [address] [place] [address] CARLEE Outpatient Special Education Math Teacher 07/12/18 09/12/18 documented as of this encounter
--- OUTSIDE RECORDS SUMMARY | 2024-04-20 01:08 | XMS_ITS | Encounter Summary ---
Author Organization [facility] Healthcare Address [address] [place] [address] Care Team Providers Care Interactive Digital Media Specialist Name Role Phone Emmanuel Jimenez MD Primary Care Provider Encounter Details Date Type Department Care Team (Late st Contact Info) Description 08/06/2006 8:28 AM CDT - 08/07/2006 2:11 PM CDT Hospital Encounter [facility] Apryl Li MD [address] [facility] [address] [place] [address] Social History Tobacco Use Types Packs/Day Years Used Date Smoking Tobacco: Never Assessed Sex and Gender Information Value Date Recorded Sex Assigned at Not on file Legal Sex Male 12:20 AM RADIOTELEGRAPHER Gender Identity Not on file Sexual Orientation Not on file documented as of this encounter Plan of Treatment Not on file documented as of this encounter Visit Diagnoses Not on filedocumented in this encounter Care Teams Interactive Digital Media Specialist Relationship Specialty Start Date End Date Emmanuel Jimenez MD PCP - General 08/04/06 07/06/18 documented as of this encounter
--- OUTSIDE RECORDS SUMMARY | 2024-04-20 01:08 | XMS_ITS | Encounter Summary ---
Author Organization [facility] Medical Group Address [address] [place] [address] Care Team Providers Care Store Facility Technician Name Role Phone Ronald Lam DO Primary Care Provider [phone] Donald Ugalde SYSTEMS INTEGRATION ENGINEER Unavailable Mary Kate Ochoa DNP Unavailable [phone] Tucker Fry SYSTEMS INTEGRATION ENGINEER Unavailable [phone] Encounter Details Date Type Department Care Team (Late st Contact Info) Description 07/07/2018 Orders Only [facility] Health Information Management [address] [place] [address] Scanning, Provider Social History Tobacco Use Types Packs/Day Years Used Date Smoking Tobacco: Never Smokeless Tobacco: Never Alcohol Use Standard Drinks/Week Comments Not Currently 0 (1 standard drink = 0.6 oz pur e alcohol) Sex and Gender Information Value Date Recorded Sex Assigned at Not on file Legal Sex Male 12:20 AM AFFIRMATIVE ACTION SPECIALIST Gender Identity Not on file Sexual Orientation Not on file documented as of this encounter Plan of Treatment Not on file documented as of this encounter Procedures Procedure Name Priority Date/Time Associated Diagnosis Comments SCAN - RADIOLOGY/IMAGING 07/07/2018 documented in this encounter Results * SCAN - RADIOLOGY/IMAGING (07/07/2018) Anatomical Region Laterality Modality Other us Provider Scanning Final Result documented in this encounter Visit Diagnoses Not on filedocumented in this encounter Care Teams Store Facility Technician Relationship Specialty Start Date End Date Ronald Lam DO PCP - General 07/07/18 Donald Ugalde, DONG [address] [facility] [address] [place] [address] CHAP Outpatient Wash Crew Person 07/12/18 09/12/18 Mary Kate Ochoa DNP [address] [facility] [address] [place] [address] Nurse Practitioner Internal Medicine 07/12/18 09/12/18 Tucker Fry, SYSTEMS INTEGRATION ENGINEER [address] [facility] [address] [place] [address] CHAP Outpatient Wash Crew Person 07/12/18 09/12/18 documented as of this encounter
--- OUTSIDE RECORDS SUMMARY | 2024-04-20 01:08 | XMS_ITS | Encounter Summary ---
Author Organization [facility] Facility Care Team Providers Care Catalogue Illustrator Name Role Phone Ronald Lam DO Primary Care Provider [phone] Donald Ugalde CHIROPRACTIC TEACHER Unavailable Mary Kate Ochoa DNP Unavailable [phone] Tucker Fry CHIROPRACTIC TEACHER Unavailable [phone] Encounter Details Date Type Department Care Team (Latest Contact Info) Description 07/29/2018 Travel Social History Tobacco Use Types Packs/Day Years Used Date Smoking Tobacco: Never Smokeless Tobacco: Never Alcohol Use Standard Drinks/Week Comments Not Currently 0 (1 standard drink = 0.6 oz pur e alcohol) Sex and Gender Information Value Date Recorded Sex Assigned at Not on file Legal Sex Male 12:20 AM CERTIFIED ALCOHOL DRUG COUNSELOR Gender Identity Not on file Sexual Orientation Not on file documented as of this encounter Plan of Treatment Not on file documented as of this encounter Visit Diagnoses Not on filedocumented in this encounter Care Teams Catalogue Illustrator Relationship Specialty Start Date End Date Ronald Lam DO PCP - General 07/07/18 Donald Ugalde MSW [address] [place], [place] [id number] CHAP Outpatient Coutierier 07/12/18 09/12/18 Mary Kate Ochoa DNP [address] [place] [address] Nurse Practitioner Internal Medicine 07/12/18 09/12/18 Tucker Fry, CHIROPRACTIC TEACHER [address] [facility] [address] [place] [address] CHAP Outpatient Coutierier 07/12/18 09/12/18 documented as of this encounter
--- OUTSIDE RECORDS SUMMARY | 2024-04-20 01:08 | XMS_ITS | Encounter Summary ---
Author Organization [facility] Healthcare Address [address] [place] [address] Care Team Providers Care Horticulture Worker Name Role Phone Ronald Lam DO Primary Care Provider [phone] Donald Ugalde ACCESS SERVICES REPRESENTATIVE Unavailable Mary Kate Ochoa DNP Unavailable [phone] Tucker Fry ACCESS SERVICES REPRESENTATIVE Unavailable Reason for Visit * Reason Comments Follow-up Encounter Details Date Type Department Care Team (Late st Contact Info) Description 08/02/2018 Patient Outreach Transition to Wellness [address] [facility] [address] [place] [address] Donald Ugalde MSW [address] [facility] [address] [place], [place] [id number] Social History Tobacco Use Types Packs/Day Years Used Date Smoking Tobacco: Never Smokeless Tobacco: Never Alcohol Use Standard Drinks/Week Comments Not Currently 0 (1 standard drink = 0.6 oz pur e alcohol) Sex and Gender Information Value Date Recorded Sex Assigned at Not on file Legal Sex Male 12:20 AM HEAVY EQUIPMENT PLUMBING SUPERVISOR Gender Identity Not on file Sexual Orientation Not on file documented as of this encounter Plan of Treatment Not on file documented as of this encounter Visit Diagnoses Not on filedocumented in this encounter Care Teams Horticulture Worker Relationship Specialty Start Date End Date Ronald Lam DO PCP - General 07/07/18 Donald Ugalde, ACCESS SERVICES REPRESENTATIVE [address] [facility] [address] [place] [address] Security Officer 07/12/18 09/12/18 Mary Kate Ochoa, STUART [address] [address] [facility] [address] [place] [address] Nurse Practitioner Internal Medicine 07/12/18 09/12/18 Tucker Fry, ACCESS SERVICES REPRESENTATIVE [address] [address] [facility] [address] [place] [address] Security Officer 07/12/18 09/12/18 documented as of this encounter
--- OUTSIDE RECORDS SUMMARY | 2024-04-20 01:08 | XMS_ITS | Encounter Summary ---
Author Organization [facility] Medical Group Address [address] [facility] [address] [place] [address] Care Team Providers Care Sales Promotion Manager Name Role Phone Ronald Lam DO Primary Care Provider [phone] Donald Ugalde PLUG MACHINE OPERATOR Unavailable [phone] Mary Kate Ochoa DNP Unavailable [phone] Tucker Fry PLUG MACHINE OPERATOR Unavailable [phone] Reason for Referral * (Routine) - Closed Specialty Diagnoses / Procedures Referred By Contac t Referred To Contact Procedures Transthoracic Echo Complete W Doppler/CF [facility] [address] [place] [address] [place] [id number] Phone: tel: fax: [facility] Medical Group Referral ID Status Reason Start Date Expiration Date Visits Re quested Visits Authorized [id number] Closed 07/13/2018 01/22/2020 1 1 Encounter Details Date Type Department Care Team (Late st Contact Info) Description 07/13/2018 Orders Only [facility] [address] [place] [address] [place] [id number] Jarett Abbott MD [facility] [place] [address] Social History Tobacco Use Types Packs/Day Years Used Date Smoking Tobacco: Never Smokeless Tobacco: Never Alcohol Use Standard Drinks/Week Comments Not Currently 0 (1 standard drink = 0.6 oz pur e alcohol) Sex and Gender Information Value Date Recorded Sex Assigned at Not on file Legal Sex Male 12:20 AM DEALER RELATIONSHIP MANAGER Gender Identity Not on file Sexual Orientation Not on file documented as of this encounter Plan of Treatment Not on file documented as of this encounter Procedures Procedure Name Priority Date/Time Associated Diagnosis Comments TRANSTHORACIC ECHO (TTE) COM PLETE W DOPPLER/CF Routine 07/06/2018 documented in this encounter Results * Transthoracic Echo Complete W Doppler/CF (07/06/2018) Anatomical Region Laterality Modality Ultrasound us Historical Provider CV ECHO PROCEDURES Final Result documented in this encounter Visit Diagnoses Not on filedocumented in this encounter Care Teams Sales Promotion Manager Relationship Specialty Start Date End Date Ronald Lam DO PCP - General 07/07/18 Donald Ugalde, PLUG MACHINE OPERATOR [address] [place] [address] CHAP Outpatient Cnc Maintenance Mechanic 07/12/18 09/12/18 Mary Kate Ochoa, STUART [address] [facility] 8 [place] [address] Nurse Practitioner Internal Medicine 07/12/18 09/12/18 Tucker Fry, PLUG MACHINE OPERATOR [address] [address] [facility] 8 [place] [address] CHAP Outpatient Cnc Maintenance Mechanic 07/12/18 09/12/18 documented as of this encounter
--- OUTSIDE RECORDS SUMMARY | 2024-04-20 01:08 | XMS_ITS | Encounter Summary ---
Author Organization [facility] Healthcare Address [address] [place] [address] Care Team Providers Care Diamond Sizer Name Role Phone Ronald Lam DO Primary Care Provider [phone] Donald Ugalde COLORIST Unavailable Mary Kate Ochoa DNP Unavailable [phone] Tucker Fry COLORIST Unavailable Reason for Visit * Reason Comments Follow-up Encounter Details Date Type Department Care Team (Late st Contact Info) Description 08/09/2018 Patient Outreach Transition to Wellness [address] [facility][1] [address] [place] [address] Donald Ugalde MSW [address] [facility] [address] TO [place], [place] [id number] Social History Tobacco Use Types Packs/Day Years Used Date Smoking Tobacco: Never Smokeless Tobacco: Never Alcohol Use Standard Drinks/Week Comments Not Currently 0 (1 standard drink = 0.6 oz pur e alcohol) Sex and Gender Information Value Date Recorded Sex Assigned at Not on file Legal Sex Male 12:20 AM OPTICAL FABRICATOR Gender Identity Not on file Sexual Orientation Not on file documented as of this encounter Plan of Treatment Not on file documented as of this encounter Visit Diagnoses Not on filedocumented in this encounter Care Teams Diamond Sizer Relationship Specialty Start Date End Date Ronald Lam DO PCP - General 07/07/18 Donald Ugalde, COLORIST [address] [facility] [address] [place] [address] CARLEE Outpatient Java Performance Engineer 07/12/18 09/12/18 Mary Kate Ochoa, STUART [address] [address] [facility] [address] [place] [address] Nurse Practitioner Internal Medicine 07/12/18 09/12/18 Tucker Fry, COLORIST [address] [address] [facility] [address] [place] [address] CARLEE Outpatient Java Performance Engineer 07/12/18 09/12/18 documented as of this encounter
--- OUTSIDE RECORDS SUMMARY | 2024-04-20 01:08 | XMS_ITS | Encounter Summary ---
Author Organization [facility] Healthcare Address [address] [place] [address] Care Team Providers Care Oncology Social Worker Name Role Phone Ronald Lam DO Primary Care Provider [phone] Encounter Details Date Type Department Care Team (Latest Contact Info) Description 07/07/2018 6:19 PM CHAMBER WALKER - 07/09/2018 4:50 PM CHAMBER WALKER Hospital Encounter [facility] [address] [place] [address] Karlos Amber Herrera DO [address] [address] Coronary arteriosclerosis in [place] artery (Primary Dx); Multiple-type hyperlipidemia; Hypertension, unspecified type Discharge Disposition: Discharge to home or self care Social History Tobacco Use Types Packs/Day Years Used Date Smoking Tobacco: Never Smokeless Tobacco: Never Alcohol Use Standard Drinks/Week Comments Not Currently 0 (1 standard drink = 0.6 oz pur e alcohol) Sex and Gender Information Value Date Recorded Sex Assigned at Not on file Legal Sex Male 12:20 AM CHAMBER WALKER Gender Identity Not on file Sexual Orientation Not on file documented as of this encounter Last Filed Vital Signs Vital Sign Reading Time Taken Comments Blood Pressure 138/82 07/09/2018 3:43 PM CHAMBER WALKER Pulse 67 07/09/2018 3:43 PM CHAMBER WALKER Temperature 36.7 ??C (98 ??F) 07/09/2018 3:43 PM CHAMBER WALKER Respiratory Rate 16 07/09/2018 3:43 PM CHAMBER WALKER Oxygen Saturation 98% 07/09/2018 3:43 PM CHAMBER WALKER Inhaled Oxygen Concentration - - Weight 116.6 kg (257 lb) 07/07/2018 10:15 PM CHAMBER WALKER Height 185.4 cm (6' 1 ) 07/07/2018 10:15 PM CHAMBER WALKER Body Mass Index 33.91 07/07/2018 10:15 PM CHAMBER WALKER documented in this encounter Discharge Summaries * Hector Desai MD - 07/09/2018 2:02 PM CST Discharge Summary Patient ID: Yosef Chapa [id number] 72 y.o. 1945 Date of admission: 07/07/2018 Date of discharge: 07/09/2018 Discharge Diagnoses: Primary diagnosis: Unstable angina Secondary diagnoses: Coronary artery disease Hypertension, CKD stage 3, dyslipidemia, RIOS Hospital Course: Yosef Chapa is a 72 y.o. male with known CAD, history of remote PCI/stenting ofLCX/OM branch; hypertension, CKD stage 3, dyslipidemia, RIOS. ??Patient was admitted to [facility] on 07/05/2018 with complaints of anginal chest pain with radiation to left arm for last 2-3 weeks. His troponins were negative, EKG showed left bundle branch block. ??Patient underwent coronary angiogram at [facility] on 07/06/2018 in the setting of unstable angina. ??Coronary angiogramshowed patent LCX/om stent; high-grade, subtotal calcific complex stenosis in the mid RCA with the extremity tortuous segment just proximal to the stenosis. ??Patient underwent intervention with balloon angioplasty, however, the stent could not be advanced to the target lesion despite numerous attempts. ??He was initiated on optimal medical treatment including dual antiplatelet therapy with aspirin and ticagrelor. ??Patient was transferred to [facility] for another attempt on the intervention. Patient underwent complex PCI with orbital atherectomy using CSI atherectomy device, followed by balloon angioplasty and stenting of mid RCA using 3.0 x 32 mm everolimus eluting stent. His postprocedure hospital course remained uneventful. On the day of discharge, patient was feeling well without any recurrent angina. His renal function remains stable, his creatinine at admission was 1.63, creatinine today is 1.42. Discharge Exam: BP 142/78 (BP Location: Left arm, Patient Position: Lying) Pulse 68 Temp 36.7 ??C (98.1 ??F) (Oral) Resp 18 Ht 185.4 cm (6' 1 ) Wt 116.6 kg (257 lb) SpO2 97% BMI 33.91 kg/m?? Physical Exam Constitutional: He appears well-developed and well-nourished. HENT: Head: Normocephalic. Eyes: Pupils are equal, round, and reactive to light. Neck: Normal range of motion. Cardiovascular: Normal rate and regular rhythm. Pulmonary/Chest: Effort normal. Abdominal: Soft. Musculoskeletal: He exhibits no edema. Neurological: He is alert. Skin: Skin is warm. Right groin access site unremarkable, no hematoma, no bruit Psychiatric: He has a normal mood and affect. His behavior is normal. Discharge medications: Eduard Yosef L Home Medication Instructions [facility]):[id number] Printed on:07/09/18 5441 Medication Information allopurinol (ZYLOPRIM) 300 mg tablet Take 300 mg by mouth daily . aspirin 81 mg tablet Take 1 tablet (81 mg total) by mouth daily carvedilol (COREG) 25 mg tablet Take 25 mg by mouth 2 (two) times a day with meals . losartan-hydroCHLOROthiazide (HYZAAR) 100-12.5 mg per tablet Take 1 tablet by mouth daily . multivitamin capsule Take 1 capsule by mouth daily . simvastatin (ZOCOR) 40 mg tablet Take 40 mg by mouth nightly . ticagrelor (BRILINTA) 90 mg tablet Take 1 tablet (90 mg total) by mouth 2 (two) times a day Patient Instructions: Activity: - No heavy lifting (over 5 pounds) for 1 week or as directed by your delivery crew worker. - No driving for 2 days after sheath removal. - No strenuous activity with affected leg for one week (i.e. Jogging, swimming, running, raking, shoveling snow or mowing lawn). - No exercising or excessive use of stairs for 1 week. Puncture Site: - Remove dressing next day. - Wash with soap and water daily in shower (to prevent infection, a shower is preferred to a tub bath for at least a week). - Do not apply any creams or lotions to puncture site. What to watch for: - Increased bruising - Swelling - Temperature greater than 100 degrees - Redness, drainage, or foul odor at puncture site - Pain that will not go away You may develop scar tissue at the puncture site. This IS normal and will feel like a small lump under the skin. You may feel this bump for several days. If any of the above occur or you have any questions contact your Physician. Due to patient's CKD, his for spironolactone was put on hold. Patient was advised to follow up withnephrologist. His medications can be optimize/modified as an outpatient. Condition: Stable Total time taken for discharge process: 36 minutes Signed: Hector Desai MD 07/09/2018 Outpatient Follow-Up: Future Appointments Date Time Provider Department Center 07/27/2018 10:00 AM Jessica Hollins NP [facility] BER WALKER documented in this encounter Discharge Instructions * Discharge Instr - Diet* Kaylynn Guillaume RD - 07/09/2018 2:53 PM CHAMBER WALKER Dietitian recommends discharge on heart healthy (low fat, 2000mg sodium) diet. Recommend continue to follow low protein diet for kidney health. Decrease protein intake to 2 meals per day. Restrict intakes of bananas, oranges, potatoes, & tomatoes if serum potassium becomes elevated. Eat 3 mealsper day, try to eat at regular times. If interested, ask Doctor for referral to outpatient Nutrition Counseling. Call [facility] Dietitian's office at [phone] for questions about your diet. BER WALKER BER WALKER documented in this encounter Medications at Time of Discharge allopurinol (ZYLOPRIM) 300 mg tablet Take 300 mg by mouth daily . carvedilol (COREG) 25 mg tablet Take 25 mg by mouth 2 (two) times a day with meals . multivitamin capsule Take 1 capsule by mouth daily . acetaminophen (TYLENOL) 325 mg tablet Take 2 tablets (650 mg total) by mouth every 6 (six) hours as needed for pain 30 tablet 07/09/2018 09/01/2018 aspirin 81 mg tablet Take 1 tablet (81 mg total) by mouth daily 30 tablet 11 07/10/2018 12/08/2018 losartan-hydroCHL OROthiazide (HYZAAR) 100-12.5 mg per tablet Take 1 tablet by mouth daily . 02/13/2020 simvastatin (ZOCOR) 40 mg tablet Take 40 mg by mouth nightly . 09/01/2018 temazepam (RESTORIL) 7.5 mg capsuleIndication s:Insomnia Take 1 capsule (7.5 mg total) by mouth nightly as needed for sleep 30 capsule 07/09/2018 09/01/2018 ticagrelor (BRILINTA) 90 mg tablet Take 1 tablet (90 mg total) by mouth 2 (two) times a day 30 tablet 11 07/09/2018 07/29/2018 documented as of this encounter Ordered Prescriptions Prescription Sig Dispense Quantity Refills Last Filled Start Date End Date temazepam (RESTORIL) 7.5 mg capsuleIndications :Insomnia Take 1 capsule (7.5 mg total) by mouth nightly as needed for sleep 30 capsule 07/09/2018 9 acetaminophen (TYLENOL) 325 mg tablet Take 2 tablets (650 mg total) by mouth every 6 (six) hours as needed for pain 30 tablet 07/09/2018 9 ticagrelor (BRILINTA) 90 mg tablet Take 1 tablet (90 mg total) by mouth 2 (two) times a day 30 tablet 11 07/09/2018 9 aspirin 81 mg tablet Take 1 tablet (81 mg total) by mouth daily 30 tablet 11 07/10/2018 9 documented in this encounter Discharge Disposition Disposition Code Departure Means Destination Discharge to home or self care documented in this encounter Progress Notes * Kaylynn Guillaume, RD - 07/09/2018 2:58 PM CST Nutrition Assessment Reason for Assessment: Consult/Referral and Diet Education Encounter Date: 07/09/18 2:58 PM Nutrition Assessment and Plan: Patient is a 72 y.o. male. Admit Dx: CAD. Admitted on 07/07/2018, current LOS is 2 days. Pt requestedconsult for education on heart healthy diet. Reported that he currently follows a renal diet & limits sodium intakes (avoids processed snack foods, canned vegetables & soups, deli meats, frozen foods). Reported also trying to follow lower protein diet. Pt is concerned about new diet restrictions for heart healthy diet. Provided heart healthy diet education recommending Pt decrease intakesfatty foods and foods high in sodium. Discussed foods recommended vs not recommended, nutrition labels, herbs/spice alternatives to salt and lite salts, & provided sample meal plan. Pt & family understanding & asked relevant questions. RD answered all questions by Pt and family. Anticipate Pt to follow heart healthy, renal diet well. Provided Pt with outpatient referral form w RD contact information. Nutrition Screen What diet do you follow at home?: Renal diet Have You Recently Lost Weight Without Trying?: No Poor Oral Intake for Four or More Days Prior to Admission: No Current diet order: Adult Diet Restricted; Low Fat, Low Chol, Low Na, 2 GM Sodium Pt intake is inadequate. PO intakes: 100% x 1; 75% x1; 0% x1 Nutrition Diagnosis 1: Food and nutrition-related knowledge deficit Related to: Lack of education Evidenced by: Patient interview ?? Interventions: Education, nutrition, Encouragement, Communication(Provided heart healthy diet edu) ?? Monitoring and Evaluation: Appetite, Labs, Plan of care, PO intake, Discharge plans, Other (comment)(questions on edu) ?? Goals: Oral intake to meet 75% estimated nutritional needs by next assessment, Adequate nutrition to meet estimated needs by next assessment, Patient/caregiver able to teach back understanding of role of diet in disease process prior to discharge Estimated needs: ?? Total Kcal/kg Estimated Needs : 2097.33 based on Kcal/k. Type of Weight Used for Estimated Kcals: Current ?? Total Protein Estimated Needs (gm): 93.26 Protein Needs Based on g/k.8 Type of Weight Used for Estimated Protein : Current. ?? Total Fluid Estimated Needs: 8.33 Fluid Needs Based on : 1 ml/kcal. Objective Anthropometrics Weight: 116.6 kg (257 lb) Admission Weight : 116.6 kg Weight Change: 0.00 kg (0.00 lbs) IBW/kg (Calculated) : 83.5 kg Height: 185.4 cm (6' 1 ) Weight in (lb) to have BMI = 25: 189.1 BMI (Calculated): 33.9 BMI Classification: BMI 30.0 - 34.9 Obese Class I 3 Day I/O Summary 07/07 1899 - 07/09 658 In: 600 [P.O.:600] Out: 400 [Urine:400] Temp: 36.7 ??C (98.1 ??F) No past medical history on file. Medications and Lab Review: Scheduled Meds: allopurinol 300 mg oral Daily aspirin 81 mg oral Daily carvedilol 25 mg oral BID with meals (bkfst, dinner) simvastatin 40 mg oral Nightly ticagrelor 90 mg oral BID Continuous Infusions: Sodium Date Value Ref Range Status 07/09/2018 141 135 - 145 mmol/L Final Potassium, pl Date Value Ref Range Status 07/09/2018 3.9 3.3 - 4.9 mmol/L Final BUN Date Value Ref Range Status 07/09/2018 28 (H) 8 - 25 mg/dL Final Creatinine Date Value Ref Range Status 07/09/2018 1.42 (H) 0.80 - 1.30 mg/dL Final Calcium Date Value Ref Range Status 07/09/2018 9.3 8.5 - 10.3 mg/dL Final No results found for: HGBA1C POC Glucose: Resulted in the Past 12 Months 07/09/18 1147 GLUCOSE 107 Nursing Assessment: Carson Scale Score: 22 Skin Integrity: Puncture Type of Wound (LDA): Surgical site Diet Instructions Dietitian recommends discharge on heart healthy (low fat, 2000mg sodium) diet. Recommend continue to follow low protein diet for kidney health. Decrease protein intake to 2 meals per day. Restrict intakes of bananas, oranges, potatoes, & tomatoes if serum potassium becomes elevated. Eat 3 mealsper day, try to eat at regular times. If interested, ask Doctor for referral to outpatient Nutrition Counseling. Call [facility] Dietitian's office at [phone] for questions about your diet. Nutrition Follow-Up : (seen for education. following per policy.) Kaylynn Guillaume RD,LD BER WALKER * Donald Ugalde MSW - 07/09/2018 10:29 AM CST 07/09/18 1004 Referral Data Referral Source Strategic Account Executive Referral Name Yudith Montiel Referral Reason Other (Comment) ([facility] Enrollment) County Information County of Residence [place] Patient Information Primary Caregiver Self Accompanied by/Relationship Amber Arvizu,daughter, and [phone] Support System Children Support system contact info (name, phone, availablity) Amber Arvizu,daughter, and [phone]; Ayleen Rodriguez,daughter, Legal Information Have you reviewed your Advance Directive and is it valid for this stay? Yes Advance Directive Patient has advance directive, copy not in chart Advance Directive not in Chart Copy requested from family Prior Level of Functioning Durable Medical Equipment None Living Arrangement House;Lives alone Skin Integrity Intact Behavior Oriented Potential Discharge Needs Anticipated discharge level of care Return Home Dialysis No Psychiatric services No Communications Important Message from Medicare notice given to patient? No DOTY letter given? No Patient choice (Home Health/Hospice) list given to patient/aircraft sales representative? No Long-Term Facility list given to patient/aircraft sales representative? No Additional assessment Additional comments: SALES FORECAST ANALYST received consult for TTW enrollment. SALES FORECAST ANALYST met with pt today for TT[facility] enrollment. Pt's daughter, Amber at bedside. SALES FORECAST ANALYST explained the outpatient program to the pt. Pt has a home in [facility]. Pt reported that he will discharged to his daughter, Amber home. Pt has noDME. Pt has an AD, copy not on file. SALES FORECAST ANALYST requested copy. Pt doesn't smoke cigarettes or drink alcohol. Pt sees his PCP and first mate as scheduled. Pt reported that he will like to talk to a dietitian before discharging home. SALES FORECAST ANALYST will follow-up with pt once discharged. SALES FORECAST ANALYST provided report to floor CM. BER WALKER * Donald Ugalde MSW - 07/09/2018 10:03 AM CST 07/09/18 1003 Enrollment Program Offered Transition to Wellness BER WALKER documented in this encounter H&P Notes * Hector Desai MD - 07/08/2018 1:31 PM CST HISTORY AND PHYSICAL Patient Name: Yosef Chapa Date of : 1945 Primary Physician: Ronald Lam DO Requesting Physician: @REQUEST@ Admission Date: 07/07/2018 Length of Stay: 1 DATE OF SERVICE: 07/08/2018 CHIEF COMPLAINT Anginal chest pain times 2-3 weeks Transferred from [facility] for planned, complex PCI on RCA HPI Yosef Chapa is a 72 y.o. male with PCI/stenting of LCX/om branch; hypertension, CKD stage 3, dyslipidemia. Patient was admitted to [facility] on 07/05/2018 with complaints of anginal chest pain with radiation to left arm for last 2-3 weeks. His symptoms were associated with mild shortnessof breath. He denies any palpitation, dizziness or loss of consciousness. His troponins were negative, EKG showed left bundle-branch block. Patient underwent coronary angiogram at [facility] on 07/06/2018 in the setting of unstable angina. Coronary angiogram showed patent LCX/om stent; high-grade, subtotal calcific complex stenosis in the mid RCA with the extremity tortuous segment just proximal to the stenosis. Patient underwent intervention with balloon angioplasty, however, the stent could not be advanced to the target lesion despite numerous attempts. He was initiated on optimal medical treatment including dual antiplatelet therapy with aspirin and ticagrelor. Patient was transferred to [facility] yesterday for another attempt on the intervention. He has not had any recurrent chest discomfort since hospitalization. His EKG performed at [facility] which I personally evaluated shows sinus rhythm, left bundle branch block. MEDICAL HISTORY PCI/stenting of LCX/om branch; hypertension, CKD stage 3, dyslipidemia. Right inguinal hernia repair he has No Known Allergies. Medications Prior to Admission Medication Sig Dispense Refill Last Dose ??? allopurinol (ZYLOPRIM) 300 mg tablet Take 300 mg by mouth daily . ??? aspirin 325 mg tablet Take 325 mg by mouth daily . ??? carvedilol (COREG) 25 mg tablet Take 25 mg by mouth 2 (two) times a day with meals . ??? losartan-hydroCHLOROthiazide (HYZAAR) 100-12.5 mg per tablet Take 1 tablet by mouth daily . ??? multivitamin capsule Take 1 capsule by mouth daily . ??? simvastatin (ZOCOR) 40 mg tablet Take 40 mg by mouth nightly . ??? spironolactone (ALDACTONE) 25 mg tablet Take 25 mg by mouth daily . Patient's father had MS at age 56 he reports that he has never smoked. He has never used smokeless tobacco. He reports that he drank alcohol. He reports that he does not use drugs. REVIEW OF SYSTEMS General ROS: Generalized fatigue Psychological ROS: negative for - anxiety, depression Ophthalmic ROS: negative for - blurry vision, loss of vision ENT ROS: negative for - sore throat, epistaxis, headaches, nasal congestion Allergy and Immunology ROS: negative for - hives, postnasal drip or seasonal allergies Hematological and Lymphatic ROS: negative for - bleeding problems, bruising Respiratory ROS: negative for - cough, hemoptysis, wheezing Cardiovascular ROS: Positive for angina Gastrointestinal ROS: negative for - abdominal pain, [...] 07/08/2018 HCT 43.4 07/08/2018 MCV 94.1 07/08/2018 Recent Labs Lab Units 07/08/18 0555 CO2 mmol/L 22 CREATININE mg/dL 1.63* CALCIUM mg/dL 9.8 GLUCOSE mg/dL 100 Lab Results Component Value Date WBC 7.3 07/08/2018 HGB 14.1 07/08/2018 HCT 43.4 07/08/2018 MCV 94.1 07/08/2018 No results found for: CHOL No results found for: HDL No results found for: LDL] No results found for: TRIG No results found for this or any previous visit. No results found for this or any previous visit. PHYSICAL EXAM Vitals: BP 157/82 (BP Location: Right arm, Patient Position: Lying) Pulse 65 Temp 37.1 ??C (98.7 ??F) (Oral) Resp 18 Ht 185.4 cm (6' 1 ) Wt 116.6 kg (257 lb) SpO2 92% BMI 33.91 kg/m?? General appearance - alert, [...] to auscultation Heart - normal rate, regular rhythm, somewhat distant heart sounds, no audible murmurs or gallops Abdomen - soft, nontender, nondistended, bowel sounds present Neurological - alert, oriented, normal speech, no gross motor deficits Musculoskeletal - no major deformity, no amputations Extremities - no pedal edema, no clubbing or cyanosis Skin - no rashes (on the exposed areas), no cyanosis ASSESSMENT 1. Unstable angina 2. CAD with high-grade, complex stenosis mid RCA; patent previously placed LCX/om stent 3. Hypertension 4. Dyslipidemia 5. CKD PLAN/RECOMMENDATIONS Patient is scheduled to undergo another attempt on the intervention in the complex, subtotal, calcific occlusion in the mid RCA. He will be continued on optimal medical treatment including dual antiplatelet therapy with aspirin and ticagrelor; beta devante, and statin. Benefits, risks and alternatives of the interventional plan were discussed with the patient and hisfamily. They are willing to proceed with the another attempt on intervention. Due to patient's renal insufficiency, will hold spironolactone for now. Monitor renal function and electrolytes closely. Monitor blood pressure closely and optimize/modify antihypertensives as needed. Voice recognition software was used to complete this document. Hector Desai MD, [facility] BER WALKER documented in this encounter Nursing Notes * Veronique Mai, SAUMYA - 07/08/2018 6:43 PM CST Patient returned from optical laboratory technician, alert and oriented, bedrest for 2 hours per ordered. Bedrest completed, patient up to bathroom voiding, right groin dressing remains dry and intact. No signs of bleeding, bruising or hematoma noted. Will continue to monitor for changes in condition. BER WALKER * Asha Haile RN - 07/08/2018 4:50 PM CST RADHA - Cardiac Concrete Form Setter Nursing Plan of Care Name: Yosef Chapa : 1945 Age: 72 y.o. Gender: male Room/Bed: CARDIAC ROLLER PRESSER OPERATOR POOL* Admit: 07/07/2018 6:19 PM Nursing Diagnosis: Anxiety related to fear of unknown/outcome Goal: 1 Minimize anxiety /fears - MET [] Reinforce any teaching and answer all questions to the fullest [] Proved conscious sedation Nursing Diagnosis: Potential for delay of procedure due to inadequate preparation Goal: 1 Patient remains NPO - MET [] Physician notified, test canceled [] Physician notified, proceeds with test Goal: 2 Pre-Procedure tests completed - MET [] Follow policy and procedure for pre-testing requirements [] Delay procedure and complete testing [] Notify Physician, procedure canceled [] Notify Physician, test waved, procedure done Goal: 3 Patient meets criteria for procedure - MET [] Admission assessment performed [] Physician notified of abnormal labs, test canceled [] Physician notified of abnormal labs, proceeds with tests [] History and physical not present, physician dictates H & P [] Informed consent for procedure obtained Nursing Diagnosis: Potential for complication Goal: 1 Minimize complication - MET [] Hematoma increase compression time and apply pressure dressing [] Dye reaction, give steroids and antihistamines as prescribed [] Hypotension give IVF's and medications as directed [] Follow conscious sedation guidelines for reversal Goal: 2 Minimize infection - MET [] Follow policy and procedure for re-prep when contamination occurs [] Sterile field interruption: rescrub, gown, glove as per policy and procedure [] Sterile technique not maintained Nursing Diagnosis: Potential for delay in discharge Goal: 1 Patient meets criteria for discharge - MET [] Reinforce any teaching and answer all questions to the fullest [] Hypotension not responsive to therapy, needs admission [] Hypotension responsive to therapy, needs additional recovery [] Patient unstable, severe disease, needs admission or change in bed status [] Patient needs admission due to intervention Nursing Diagnosis: Knowledge deficit of post-procedure education Goal: 1 Patient verbalizes understanding of post-procedure education - MET [] Review discharge instructions with patient and family [] Instruct patient on care of puncture site [] Review prescriptions and medications [] Explain importance and purpose of activity restrictions BER WALKER * Higinio Johnson RN - 07/07/2018 11:12 PM CST 1919 Received report from day shift nurse, Veronique KERNS. Patient a direct admit from [facility]. Vital signs stable at this time and patient on telemetry box #114. BER WALKER documented in this encounter Miscellaneous Notes * Plan of Care - Mary Kate Ochoa NP - 07/09/2018 3:03 PM CHAMBER WALKER [facility] FOAM GUN OPERATOR met with patient at the bedside to discuss post discharge follow up. Pt getting dressed to go home. Pt states that he lives in [place]. Pt agreed to post discharge calls but is unsure of FOAM GUN OPERATOR follow up in Center. Pt states that he needs a blood pressure machine and scale. Thanks for allowing [facility] to participate in the care of this patient. [phone]. Donald RADERW, . BER WALKER * Plan of Care - Zaida Payton MSW - 07/09/2018 10:49 AM CST SALES FORECAST ANALYST met with pt. And pt.'s daughter Amber in pt.'s room this morning to discuss DC plans for pt. Amber stated to SALES FORECAST ANALYST she is the durable POA of pt. And will bring a copy in pt.'s chart. Pt. Statedhe is going to stay with his daughter when [place]. Pt. Voiced he would like to talk with an outside sales about diet when DC. SALES FORECAST ANALYST voiced pt. Is going to be going home on brilliant andgave a coupon to put in pt.'s chart and meds to beds. Pt. Should be DC today 07/09/18 to home with daughter. BER WALKER * Plan of Care - Loraine Mrax RN - 07/09/2018 2:47 AM CST Goals: Clinical Goals for the Shift: remain free from falls/injury; stable VS; adequate fluid balance Summary: Problem: Lack of Knowledge: Goal: Knowledge of disease or condition and prescribed therapeutic regimen will improve 07/09/2018 0248 by Loraine Marx RN Outcome: Progressing 07/09/2018 0247 by Loraine Marx RN Outcome: Progressing 07/09/2018 0246 by Loraine Marx RN Outcome: Progressing Goal: Ability to state ways to decrease the risk of falls will improve 07/09/2018 0248 by Loraine Marx RN Outcome: Progressing 07/09/2018 0247 by Loraine Marx RN Outcome: Progressing 07/09/2018 0246 by Loraine Marx RN Outcome: Progressing Goal: Ability to state lifestyle or environmental changes necessary to maintain safety will improve 07/09/2018 0248 by Loraine Marx RN Outcome: Progressing 07/09/2018 0247 by Loraine Marx RN Outcome: Progressing 07/09/2018 0246 by Loraine Marx RN Outcome: Progressing Goal: Understanding of fluid needs during exercise will improve 07/09/2018 0248 by Loraine Marx RN Outcome: Progressing 07/09/2018 0247 by Loraine Marx RN Outcome: Progressing Goal: Understanding of fluid needs related to heat will improve 07/09/2018 0248 by Loraine Marx RN Outcome: Progressing 07/09/2018 0247 by Loraine Marx RN Outcome: Progressing Goal: Understanding of the effects of medication on fluid volume will improve 07/09/2018 0248 by Loraine Marx RN Outcome: Progressing 07/09/2018 0247 by Loraine Marx RN Outcome: Progressing Problem: Health Behavior: Goal: Understanding of discharge needs will improve 07/09/2018 0247 by Loraine Marx RN Outcome: Progressing 07/09/2018 0246 by Loraine Marx RN Outcome: Progressing Goal: Identification of resources available to assist in meeting health care needs will improve 07/09/2018 0247 by Loraine Marx RN Outcome: Progressing 07/09/2018 0246 by Loraine Marx, RN Outcome: Progressing Problem: Safety: Goal: Will remain free from falls 07/09/2018 0248 by Loraine Marx, RN Outcome: Progressing 07/09/2018 0247 by Loraine Marx, RN Outcome: Progressing 07/09/2018 0246 by Loraine Marx, RN Outcome: Progressing Goal: Will remain free from injury from falls 07/09/2018 0248 by Loraine Marx, RN Outcome: Progressing 07/09/2018 0247 by Loraine Marx, RN Outcome: Progressing 07/09/2018 0246 by Loraine Marx, RN Outcome: Progressing Goal: Will remain free from falls and injury in home environment 07/09/2018 0248 by Loraine Marx, RN Outcome: Progressing 07/09/2018 0247 by Loraine Marx, RN Outcome: Progressing 07/09/2018 0246 by Loraine Marx, RN Outcome: Progressing Goal: Ability to remain free from injury will improve 07/09/2018 0248 by Loraine Marx, RN Outcome: Progressing 07/09/2018 0247 by Loraine Marx, RN Outcome: Progressing 07/09/2018 0246 by Loraine Marx, RN Outcome: Progressing Goal: Ability to correctly utilize injury-preventing devices as appropriate will improve 07/09/2018 0248 by Loraine Marx, RN Outcome: Progressing 07/09/2018 0247 by Loraine Marx, RN Outcome: Progressing 07/09/2018 0246 by Loraine Marx, RN Outcome: Progressing Problem: Activity: Goal: Mobility will improve 07/09/2018 0248 by Loraine Marx, RN Outcome: Progressing 07/09/2018 0247 by Loraine Marx, RN Outcome: Progressing 07/09/2018 0246 by Loraine Marx, RN Outcome: Progressing Problem: Nutritional: Goal: Ability to identify appropriate dietary choices will improve 07/09/2018 0247 by Loraine Marx, RN Outcome: Progressing 07/09/2018 0246 by Loraine Marx, RN Outcome: Progressing Goal: Dietary intake will improve 07/09/2018 0247 by Loraine Marx, RN Outcome: Progressing 07/09/2018 0246 by Loraine Marx, RN Outcome: Progressing Problem: Physical Regulation: Goal: Complications related to the disease process, condition or treatment will be avoided or minimized 07/09/2018 0247 by Loraine Marx RN Outcome: Progressing 07/09/2018 0246 by Loraine Marx RN Outcome: Progressing Problem: Skin Integrity: Goal: Risk for impaired skin integrity will decrease 07/09/2018 0247 by Loraine Marx RN Outcome: Progressing 07/09/2018 0246 by Loraine Marx RN Outcome: Progressing Problem: Fluid Volume: Goal: Diagnostic test results will improve 07/09/2018 0248 by Loraine Marx RN Outcome: Progressing 07/09/2018 0247 by Loraine Marx RN Outcome: Progressing Goal: Ability to maintain a balanced intake and output will improve 07/09/2018 0248 by Loraine Marx RN Outcome: Progressing 07/09/2018 0247 by Loraine Marx RN Outcome: Progressing BER WALKER * Plan of Care - Veronique Mai RN - 07/08/2018 5:26 PM CST Goals: Clinical Goals for the Shift: remains hemodynamically stable Summary: Problem: Lack of Knowledge: Goal: Knowledge of disease or condition and prescribed therapeutic regimen will improve Outcome: Progressing Problem: Health Behavior: Goal: Understanding of discharge needs will improve Outcome: Progressing BER WALKER * Pre-Sedation Documentation - Hector Desai MD - 07/08/2018 1:07 PM CHAMBER WALKER Sedation Plan ASA 4 - Severe const threat to life Risks, benefits, and alternatives discussed with patient. BER WALKER * Plan of Care - Higinio Johnson RN - 07/08/2018 4:50 AM CST Problem: Lack of Knowledge: Goal: Knowledge of disease or condition and prescribed therapeutic regimen will improve Outcome: Progressing Summary: Patient oriented to room 918 and the hospital and given handout about medication uses and side effects. Patient vital signs stable during shift and patient placed on tele-box 114. BER WALKER documented in this encounter Plan of Treatment Not on file documented as of this encounter Procedures Procedure Name Priority Date/Time Associated Diagnosis Comments EGFR STAT 07/09/2018 11:47 AM CHAMBER WALKER BASIC METABOLIC PANEL STAT 07/09/2018 11:47 AM CHAMBER WALKER ATHERECTOMY/BARBARA MAJOR CORONARY Routine 07/08/2018 4:30 PM CHAMBER WALKER Coronary arteriosclerosis in [place] artery Multiple-type hyperlipidemia Hypertension, unspecified type ECG 12-LEAD Routine 07/08/2018 9:32 AM CHAMBER WALKER Coronary arteriosclerosis in [place] artery EGFR Routine 07/08/2018 5:55 AM CHAMBER WALKER CBC WITHOUT DIFFERENTIAL Routine 07/08/2018 5:55 AM CHAMBER WALKER BASIC METABOLIC PANEL Routine 07/08/2018 5:55 AM CHAMBER WALKER documented in this encounter Results * eGFR (07/09/2018 11:47 AM CHAMBER WALKER) [facility] eGFR 48 mL/min/1.7 3 m2 [facility] Comment: Interpretive Data Reference Interval Normal ?>/= 90 mL/min/1.73m2 Mildly decreased* ? 60 - 89 mL/min/1.73m2 Mildly to moderately decreased ?45 - 59 mL/min/1.73m2 Moderately to severely decreased ??30 - 44 mL/min/1.73m2 Severely decreased ?15 - 29 mL/min/1.73m2 Kidney Failure ?< 15 ??mL/min/1.73m2 *Relative to young adult level If -[place] multiply value by 1.16. Estimated glomerular filtration rate is determined by the CKD-EPI equation recommended by the National Kidney Foundation (KDIGO 2012 Clinical Practice Guideline for the Evaluation and Management of Chronic Kidney Disease. Kidney Intnl Suppl May 2012;3:1). The CKD-EPI equation should not be used for patients with unstable renal function and has not been validated in children and those over 70. Current interpretive data was last reviewed 2015. Blood specimen (specimen) 07/09/2018 11:47 AM CHAMBER WALKER 07/09/2018 11:51 AM CHAMBER WALKER Narrative [facility] - 07/09/2018 12:16 PM CHAMBER WALKER us Hector Desai MD LAB BLOOD ORDERABLES Final Resul t [facility] [address] Department [place] [address] * (ABNORMAL) Basic metabolic panel (07/09/2018 11:47 AM CHAMBER WALKER) Sodium 141 135 - 145 mmol/L [facility] Potassium, pl 3.9 3.3 - 4.9 mmol/L [facility] Chloride 109 97 - 110 mmol/L [facility] CO2 21(L) 22 - 32 mmol/L [facility] Anion gap 11 2 - 15 mmol/L [facility] BUN 28(H) 8 - 25 mg/dL [facility] Creatinine 1.42(H) 0.80 - 1.30 mg/dL [facility] Glucose 107 70 - 199 mg/dL [facility] Comment: Interpretive Data Fasting glucose >/= 126 mg/dl is diagnostic for diabetes. ?? Fasting is defined as no caloric intake for at least 8 hours. Fasting glucose between 100 mg/dl to 125 mg/dl is diagnostic of prediabetes. In a patient with classic symptoms of hyperglycemia or hyperglycemic crisis, a random glucose >/= 200 mg/dl is diagnostic for diabetes. In the absence of unequivocal hyperglycemia, results should be confirmed by repeat testing. The classification and Diagnosis of Diabetes Diabetes Care 2017;40 (Suppl. 1):S11. Current interpretive data was last revised 2017. Calcium 9.3 8.5 - 10.3 mg/dL [facility] Blood specimen (specimen) 07/09/2018 11:47 AM CHAMBER WALKER 07/09/2018 11:51 AM CHAMBER WALKER Narrative [facility] - 07/09/2018 12:16 PM CHAMBER WALKER us Hector Desai MD LAB BLOOD ORDERABLES Final Resul t [facility] [address] Department [place] [address] * ATHERECTOMY/BARBARA MAJOR CORONARY (07/08/2018 4:30 PM CHAMBER WALKER) Anatomical Region Laterality Modality X-Ray Angiograph y Narrative 07/08/2018 4:46 PM CHAMBER WALKER CARDIAC CATHETERIZATION AND INTERVENTION REPORT DATE OF PROCEDURE: 07/08/18 INDICATION FOR PROCEDURE: ??Unstable angina, planned complex intervention on severely disease, calcific and tortuous RCA. BRIEF CLINICAL HISTORY: Yosef Chapa is a 72 y.o. male with known CAD, history of remote PCI/stenting of LCX/OM branch; hypertension, CKD stage 3, dyslipidemia, RIOS. ??Patient was admitted to [facility] on 07/05/2018 with complaints of anginal chest pain with radiation to left arm for last 2-3 weeks. ??His troponins were negative, EKG showed left bundle branch block. ?? Patient underwent coronary angiogram at [facility] on [...] ??He was initiated on optimal medical treatment including dual antiplatelet therapy with aspirin and ticagrelor. ??Patient was transferred to [facility] yesterday for another attempt on the intervention. Benefits and risks of the high risk PCI were discussed with the patient in depth, and informed consent was taken prior to the procedure. ??Risks of the procedure include but are not limited to vascular complications like groin hematoma, retroperitoneal bleed, vessel perforation; periprocedural MS, cardiac arrhythmias, stroke, contrast induced nephropathy, and . ?? After discussing all the benefits, risks and alternatives, patient was willing to proceed with the procedure. PROCEDURES PERFORMED: 1. Selective right coronary angiogram 2. Complex percutaneous coronary intervention of calcific, tortuous mid RCA subtotal occlusion- A) ?? orbital atherectomy (CSI 1.25 mm classic crown) of mid RCA; B) ?? balloon angioplasty and stenting of mid RCA using a 3.0 x 32 mm everolimus eluting stent with good angiographic results 3. Selective right common femoral angiogram and deployment of Angio-Seal vascular closure device 4. Moderate sedation-CPT code 24641 MODERATE SEDATION: Midazolam 1 mg , Fentanyl 25 mcg, start time ?1409 stop time ?? 1621, total direct [id number] monitoring of conscious sedation ?? 132 minutes (CPT 24795) TRAINED OBSERVER: Zahra Ibrahim RN was trained office over for moderate sedation. ACCESS SITE: ??Right common femoral artery PROCEDURE: ??After obtaining informed consent, patient was brought to the optical laboratory technician and prepped and draped in the usual sterile manner. ??After local anesthesia with lidocaine, right common femoral artery access was taken with micropuncture needle followed by insertion of a 6 Sudanese sheath over a 0.035 inch wire. ??Selective right coronary angiogram was performed using 6 Sudanese AL1 guide catheter. The angiographic and other findings, and details of intervention are given below. FINDINGS: LEFT CORONARY SYSTEM: ??Left coronary system was not injected on today's study. ??Recent angiogram performed on 07/06/2018 at [facility] showed 40-50% discrete stenosis in the mid LAD; patent previously placed stent in the OM branch. RIGHT COMMON FEMORAL ARTERY: ??Medium size vessel, subtotal, about 95% complex calcific stenosis in the mid segment with modest improvement after recent angiogram at [facility] on 07/06/2018. ??This is a very tortuous segment just proximal to the subtotal occlusion. ??The remainder of the mid and distal segment has minor irregularities without significant focal stenosis. ??PDA is a small size vessel, PLV is a medium-sized vessel without significant focal stenosis. HEMODYNAMIC ASSESSMENT: ??Opening pressure 105/54 mmHg; closing pressure 109/54. INTERVENTION REPORT: ??Based on angiographic findings, we proceeded with complex PCI on the mid RCA. ??Right coronary artery ostium was selectively engaged using 6 Sudanese AL1 guide catheter. ??Patient received bivalirudin for procedural anticoagulation. ??Patient had received aspirin previously, was given ticagrelor 180 mg in the optical laboratory technician, since apparently he had not received a dose last night. The procedure was extremely challenging due to difficulty in crossing the mid segment subtotal occlusion, which likely had a shelf-like occlusion which precluded the advancement of the multiple wires including whisper wire, BMW wire, Fielder wire. ??The AL1 guide catheter appeared to be pointing upwards which made the crossing of the lesion difficulty. ?? Therefore, it was exchanged with a 6 Sudanese JL4 guide catheter. ??After numerous attempts, Fielder 014 3 and cm guidewire was advanced with the 1.2 x 12 mm [place] over the journeyman wireman balloon. ??The sizer machine balloon would not advance beyond the mid segment due to the tortuosity and calcification. ??It was exchanged with a CSI Tele port microcatheter and the microcatheter could be advanced into the distal RCA. In light of the lesion morphology, we proceeded with the orbital atherectomy. The Fielder wire was exchanged with a Viper wire in preparation for the orbital atherectomy. ??Next, orbital atherectomy was performed in the lower part of the proximal RCA and in the mid segment. ??Multiple runs were performed. ??Intracoronary nitroglycerin was given. ??The angiogram showed no visible dissection or distal embolization. ??There was spasm in the distal RCA which improved with intracoronary nitroglycerin. ??After this,CSI Tele port microcatheter was reintroduced over the ViperWire, and Viper wire was taken out and it was exchanged with a 014 grand slam wire. ?? Next, a 6 Sudanese GuideLiner was advanced to support the guide catheter. ?? After this, pre dilation balloon angioplasty was performed using a 3.0 x 15 mm noncompliant balloon at high inflation pressures. ??Next, a 3.0 x 32 mm everolimus eluting stent was successfully advanced to the target lesion in the mid RCA and was deployed at a maximum of 18 atmospheres. ?? Postdilation was initially performed using the stent balloon. ??Subsequent postdilation was performed using a 3.5 x 15 mm noncompliant balloon at high inflation pressures up to 14 atmospheres. ??Multiple inflations were performed. ??The balloon was taken out and intracoronary nitroglycerin was given. ??Final angiogram after removal of the balloon and the wire showed good angiographic results without any angiographically visible dissection or distal embolization. Finally, selective right common femoral angiogram was performed before successful deployment of Angio-Seal vascular closure device. Patient tolerated procedure well without any immediate procedural complications. CONCLUSIONS: 1. High-grade, approximately 90-95% calcific stenosis mid RCA with very tortuous segment proximal to the stenosis. 2. Very complex PCI-orbital atherectomy of mid RCA using CSI 1.25 mm classic crown orbital atherectomy system, followed by balloon angioplasty and stenting using a 3.0 x 32 mm everolimus eluting stent with good angiographic results. PLAN/RECOMMENDATIONS: ??Continuation of current optimal medical treatment including dual antiplatelet therapy with aspirin and ticagrelor, in addition to other medications including statin. ??IV hydration, overnight observation, likely discharge home tomorrow if clinically stable. ??Monitor patient's renal function. Voice recognition software was used to complete this document. Hector Desai MD, [facility] Amber Everett DO CV CARDIAC CATH PROCEDURE S Final Result * ECG 12 lead (07/08/2018 9:32 AM CHAMBER WALKER) 07/08/2018 9:32 AM CHAMBER WALKER Narrative [facility] - 07/08/2018 10:16 AM CHAMBER WALKER Vent Rate: 63 bpm RR Interval: 948 msec ID Interval: 187 msec QRS Duration: 165 msec QT Interval: 460 msec QTC Interval: 467 msec P-R-T Gem: 52 - -19 - 118 degrees SINUS RHYTHM LEFT BUNDLE BRANCH BLOCK ??[120+ ms QRS DURATION, 80+ ms Q/S IN V1/V2, 85+ ms R IN I/aVL/V5/V6] ABNORMAL ECG Electronically Signed By: Zechariah Virgen MD, [facility] Apryl Li MD ECG ORDERABLES Final Resul t [facility] * eGFR (07/08/2018 5:55 AM CHAMBER WALKER) Pathologist [facility] eGFR 41 mL/min/1.7 3 m2 [facility] Comment: Interpretive Data Reference Interval Normal ?>/= 90 mL/min/1.73m2 Mildly decreased* ? 60 - 89 mL/min/1.73m2 Mildly to moderately decreased ?45 - 59 mL/min/1.73m2 Moderately to severely decreased ??30 - 44 mL/min/1.73m2 Severely decreased ?15 - 29 mL/min/1.73m2 Kidney Failure ?< 15 ??mL/min/1.73m2 *Relative to young adult level If -[place] multiply value by 1.16. Estimated glomerular filtration rate is determined by the CKD-EPI equation recommended by the National Kidney Foundation (KDIGO 2012 Clinical Practice Guideline for the Evaluation and Management of Chronic Kidney Disease. Kidney Intnl Suppl May 2012;3:1). The CKD-EPI equation should not be used for patients with unstable renal function and has not been validated in children and those over 70. Current interpretive data was last reviewed 2015. Blood specimen (specimen) 07/08/2018 5:55 AM CHAMBER WALKER 07/08/2018 6:04 AM CHAMBER WALKER Narrative [facility] - 07/08/2018 6:27 AM CHAMBER WALKER Apryl Li MD LAB BLOOD ORDERABLES Final Result [facility] [address] Department [place] [address] * (ABNORMAL) Basic metabolic panel (07/08/2018 5:55 AM CHAMBER WALKER) Sodium 141 135 - 145 mmol/L [facility] Potassium, pl 3.9 3.3 - 4.9 mmol/L [facility] Chloride 107 97 - 110 mmol/L [facility] CO2 22 22 - 32 mmol/L [facility] Anion gap 12 2 - 15 mmol/L [facility] BUN 30(H) 8 - 25 mg/dL [facility] Creatinine 1.63(H) 0.80 - 1.30 mg/dL [facility] Glucose 100 70 - 199 mg/dL [facility] Comment: Interpretive Data Fasting glucose >/= 126 mg/dl is diagnostic for diabetes. ?? Fasting is defined as no caloric intake for at least 8 hours. Fasting glucose between 100 mg/dl to 125 mg/dl is diagnostic of prediabetes. In a patient with classic symptoms of hyperglycemia or hyperglycemic crisis, a random glucose >/= 200 mg/dl is diagnostic for diabetes. In the absence of unequivocal hyperglycemia, results should be confirmed by repeat testing. The classification and Diagnosis of Diabetes Diabetes Care 2017;40 (Suppl. 1):S11. Current interpretive data was last revised 2017. Calcium 9.8 8.5 - 10.3 mg/dL [facility] Blood specimen (specimen) 07/08/2018 5:55 AM CHAMBER WALKER 07/08/2018 6:04 AM CHAMBER WALKER Narrative [facility] - 07/08/2018 6:27 AM CHAMBER WALKER Apryl Li MD LAB BLOOD ORDERABLES Final Result [facility] [address] Department [place] [address] * (ABNORMAL) CBC without differential (07/08/2018 5:55 AM CHAMBER WALKER) WBC 7.3 3.8 - 9.9 K/cumm [facility] Hgb 14.1 13.0 - 17.5 g/dL [facility] Hct 43.4 38.9 - 50.3 % [facility] Plt 143(L) 150 - 400 K/cumm [facility] MPV 10.3 9.1 - 12.3 fL [facility] RBC 4.61 4.30 - 5.80 M/cumm [facility] MCV 94.1 81.3 - 96.4 fL [facility] MCH 30.6 27.1 - 33.3 pg [facility] MCHC 32.5 32.3 - 35.7 g/dL [facility] RDW CV 13.6 11.1 - 14.9 % [facility] RDW SD 47.0 35.7 - 48.1 fL [facility] NRBC abs 0.00 0.00 - 0.01 K/cumm [facility] Blood specimen (specimen) 07/08/2018 5:55 AM CHAMBER WALKER 07/08/2018 6:04 AM CHAMBER WALKER Narrative [facility] - 07/08/2018 6:07 AM CHAMBER WALKER Apryl Li MD LAB BLOOD ORDERABLES Final Result [facility] [address] Department [place] [address] documented in this encounter Visit Diagnoses Diagnosis Coronary arteriosclerosis in [place] artery- Primary Coronary arteriosclerosis in [place] artery Multiple-type hyperlipidemia Other and unspecified hyperlipidemia Hypertension, unspecified type Multiple-type hyperlipidemia Other and unspecified hyperlipidemia Hypertension Unspecified essential hypertension Status post angioplasty with stent Postsurgical percutaneous transluminal coronary angioplasty status Coronary artery disease involving [place] coronary artery of [place] heart with unstable angina pectoris (HCC) Coronary arteriosclerosis in [place] artery Multiple-type hyperlipidemia Other and unspecified hyperlipidemia Hypertension, unspecified type documented in this encounter Admitting Diagnoses Diagnosis Coronary arteriosclerosis in [place] artery Multiple-type hyperlipidemia Other and unspecified hyperlipidemia Hypertension Unspecified essential hypertension documented in this encounter Administered Medications Inactive Administered Medications - up to 3 most recent administrations Medication Order MAR Action Action Date Dose Rate Site acetaminophen (TYLENOL) tablet 650 mg 650 mg, oral, Every 6 hours PRN, 1st line for pain, Starting on Thu07/07/18 at 2302 Given 07/08/2018 8:57 AM CHAMBER WALKER 650 mg allopurinol (ZYLOPRIM) tablet 300 mg 300 mg, oral, Daily, First dose on Thu07/08/18 at 0900 Given 07/09/2018 9:31 AM CHAMBER WALKER 300 mg Given 07/08/2018 8:58 AM CHAMBER WALKER 300 mg aspirin enteric coated tablet 325 mg 325 mg, oral, Daily, First dose on Thu07/08/18 at 0900, Do not crush, chew, cut, dissolve, open or otherwise manipulate tablet/capsule. Given 07/08/2018 8:58 AM CHAMBER WALKER 325 mg aspirin enteric coated tablet 81 mg 81 mg, oral, Daily, First dose on Thu07/09/18 at 0900, Do not crush, chew, cut, dissolve, open or otherwise manipulate tablet/capsule. Given 07/09/2018 9:31 AM CHAMBER WALKER 81 mg carvedilol (COREG) tablet 25 mg 25 mg, oral, 2 times daily with meals (bkfst, dinner), First dose on Thu07/08/18 at 0800 Given 07/09/2018 9:31 AM CHAMBER WALKER 25 mg Given 07/08/2018 6:07 PM CHAMBER WALKER 25 mg Given 07/08/2018 8:58 AM CHAMBER WALKER 25 mg simvastatin (ZOCOR) tablet 40 mg 40 mg, oral, Nightly, First dose on Thu07/07/18 at 2345 Given 07/08/2018 9:05 PM CHAMBER WALKER 40 mg Given 07/07/2018 11:33 PM CHAMBER WALKER 40 mg sodium chloride 0.9% infusion 100 mL/hr, intravenous, Continuous, Starting on Thu07/08/18 at 1730, Total 1.5 Liters, then KVO New Bag 07/09/2018 1:18 AM CHAMBER WALKER 100 mL/hr 100 mL/hr spironolactone (ALDACTONE) tablet 25 mg 25 mg, oral, Daily, First dose on Thu07/08/18 at 0900 Given 07/08/2018 8:58 AM CHAMBER WALKER 25 mg temazepam (RESTORIL) capsule 7.5 mg 7.5 mg, oral, Nightly PRN, sleep, Starting on Thu07/07/18 at 2302, Indications: InsomniaIndications:Insomnia Given 07/08/2018 11:19 PM CHAMBER WALKER 7.5 mg Given 07/07/2018 11:35 PM CHAMBER WALKER 7.5 mg ticagrelor (BRILINTA) tablet 90 mg 90 mg, oral, 2 times daily, First dose on Thu07/08/18 at 2200 Given 07/09/2018 9:31 AM CHAMBER WALKER 90 mg Given 07/08/2018 9:05 PM CHAMBER WALKER 90 mg documented in this encounter Discontinued Medications Medication Sig Discontinue Reason Start Date End Da te aspirin 325 mg tablet Take 325 mg by mouth daily . Stop Taking at Discharge 07/09/2018 spironolactone (ALDACTONE) 25 mg tablet Take 25 mg by mouth daily . Stop Taking at Discharge 07/09/2018 documented as of this encounter Historical Medications * This list may reflect changes made after this encounter. carvedilol (COREG) 25 mg tablet Take 25 mg by mouth 2 (two) times a day with meals . allopurinol (ZYLOPRIM) 300 mg tablet Take 300 mg by mouth daily . multivitamin capsule Take 1 capsule by mouth daily . losartan-hydroCHL OROthiazide (HYZAAR) 100-12.5 mg per tablet Take 1 tablet by mouth daily . 02/13/2020 spironolactone (ALDACTONE) 25 mg tablet Take 25 mg by mouth daily . 07/09/2018 simvastatin (ZOCOR) 40 mg tablet Take 40 mg by mouth nightly . 09/01/2018 aspirin 325 mg tablet Take 325 mg by mouth daily . 07/09/2018 added in this encounter Active and Recently Administered Medications Times are shown in [facility]. Scheduled Medication Order 07/07/2018 07/08/2018 07/09/2018 allopurinol (ZYLOPRIM) tablet 300 mg 300 mg, oral, Daily, First dose on [place] 07/08/18 at 0900 0858 (Given - Provider: Veronique Mai RN)1335 ([facility] Hold - Provider: Automatic Transfer Provider - Reason: Patient not available)1722 ([facility] Unhold - Provider: Automatic Transfer Provider) 0931 (Given - Provider: Alissa Junior RN) aspirin enteric coated tablet 325 mg (CANCELED) 325 mg, oral, Daily, First dose on [place] 07/08/18 at 0900, Do not crush, chew, cut, dissolve, open or otherwise manipulate tablet/capsule. 0858 (Given - Provider: Veronique Mai RN)1335 ([facility] Hold - Provider: Automatic Transfer Provider - Reason: Patient not available)1649 ([facility] Unhold - Provider: Hector Desai MD) aspirin enteric coated tablet 81 mg 81 mg, oral, Daily, First dose on Thu07/09/18 at 0900, Do not crush, chew, cut, dissolve, open or otherwise manipulate tablet/capsule. 0931 (Given - Provider: Alissa Junior RN) carvedilol (COREG) tablet 25 mg 25 mg, oral, 2 times daily with meals (bkfst, dinner), First dose on [place] 07/08/18 at 0800 0858 (Given - Provider: Veronique Mai RN)1335 ([facility] Hold - Provider: Automatic Transfer Provider - Reason: Patient not available)1722 ([facility] Unhold - Provider: Automatic Transfer Provider)1807 (Given - Provider: Veronique Mai, SAUMYA) 0931 (Given - Provider: Alissa Junior, SAUMYA) simvastatin (ZOCOR) tablet 40 mg 40 mg, oral, Nightly, First dose on Thu07/07/18 at 2345 2333 (Given - Provider: Higinio Johnson RN) 1335 ([facility]UL Hold - Provider: Automatic Transfer Provider - Reason: Patient not available)1722 ([facility]UL Unhold - Provider: Automatic Transfer Provider)2105 (Given - Provider: Loraine Marx, SAUMYA) spironolactone (ALDACTONE) tablet 25 mg (CANCELED) 25 mg, oral, Daily, First dose on [place] 07/08/18 at 0900 0858 (Given - Provider: Veronique Mai, SAUMYA)1335 ([facility] Hold - Provider: Automatic Transfer Provider - Reason: Patient not available)1337 ([facility] Unhold - Provider: Hector Desai MD) ticagrelor (BRILINTA) tablet 90 mg 90 mg, oral, 2 times daily, First dose on [place] 07/08/18 at 2200 2105 (Given - Provider: Loraine Marx, SAUMYA) 0931 (Given - Provider: Alissa Junior, SAUMYA) Continuous Medication Order 07/07/2018 07/08/2018 07/09/2018 sodium chloride 0.9% infusion (CANCELED) 100 mL/hr, intravenous, Continuous, Starting on [place] 07/08/18 at 1730, Total 1.5 Liters, then KVO 1713 (Not Given - Provider: Veronique Mai, RN - Reason: Order parameters not met) 0118 (New Bag - Provider: Loraine Marx, RN) PRN Medication Order 07/07/2018 07/08/2018 07/09/2018 acetaminophen (TYLENOL) tablet 650 mg 650 mg, oral, Every 6 hours PRN, 1st line for pain, Starting on Thu07/07/18 at 2302 0857 (Given - Provider: Veronique Mai, RN)1335 (JUL Hold - Provider: Automatic Transfer Provider - Reason: Patient not available)1722 ([facility] Unhold - Provider: Automatic Transfer Provider) bivalirudin (ANGIOMAX) 250 mg in sodium chloride 0.9% 50 mL infusion (CANCELED) Continuous PRN, Starting on [place] 07/08/18 at 1419, Intra-Procedure (CV) 1419 (New Bag - Provider: Shilpa Ibrahim, RN)1451 (New Bag - Provider: Shilpa Ibrahim, SAUMYA)1622 (Stopped - Provider: Asha Haile RN) bivalirudin (ANGIOMAX) injection (CANCELED) As needed, Starting on [place] 07/08/18 at 1417, Intra-Procedure (CV) 1417 (Given - Provider: Shilpa Ibrahim RN) ceFAZolin (ANCEF) 1 gram/10 mL in sterile water (premix) (COMPLETED) Administer over 3 Minutes, Continuous PRN, Starting on [place] 07/08/18 at 1525, Intra-Procedure (CV) 1525 (New Bag - Provider: Shilpa Ibrahim RN) fentaNYL (SUBLIMAZE) preservative free injection (CANCELED) As needed, Starting on [place] 07/08/18 at 1410, Intra-Procedure (CV) 1410 (Given - Provider: Shilpa Ibrahim RN) heparin in 0.9% sodium chloride 1000 units/500 mL (2 unit/mL) infusion (premix) (CANCELED) As needed, Starting on [place] 07/08/18 at 1348, Intra-Procedure (CV) 1348 (Given - Provider: Hector Desai MD - Comment: used on the table for procedure) iodixanol (VISIPAQUE) 320 mg iodine/mL injection (CANCELED) As needed, Starting on [place] 07/08/18 at 1625, Intra-Procedure (CV) 1625 (Given - Provider: Hector Desai MD) lidocaine (XYLOCAINE) 10 mg/mL (1 %) injection (CANCELED) As needed, Starting on [place] 07/08/18 at 1412, Intra-Procedure (CV), Indications: Administration of Local Anesthesia 1412 (Given - Provider: Hector Desai MD) midazolam (VERSED) preservative free injection (CANCELED) Administer over 2 Minutes, As needed, Starting on [place] 07/08/18 at 1410, Intra-Procedure (CV) 1410 (Given - Provider: Shilpa Ibrahim, SAUYMA) nitroglycerin in dextrose 5% 50 mg/250 mL (200 mcg/mL) infusion (premix) (COMPLETED) Continuous PRN, Starting on [place] 07/08/18 at 1547, Intra-Procedure (CV) 1547 (New Bag - Provider: Hector Desai MD) nitroglycerin in dextrose 5% 50 mg/250 mL (200 mcg/mL) infusion (premix) (COMPLETED) Continuous PRN, Starting on [place] 07/08/18 at 1616, Intra-Procedure (CV) 1616 (New Bag - Provider: Hector Desai MD) sodium chloride 0.9% bolus (COMPLETED) Continuous PRN, Starting on [place] 07/08/18 at 1547, Intra-Procedure (CV) 1547 (New Bag - Provider: Shilpa Ibrahim, SAUMYA) sodium chloride 0.9% infusion (COMPLETED) Continuous PRN, Starting on Thu07/08/18 at 1346, Intra-Procedure (CV) 1346 (New Bag - Provider: Cara Almanza RN)1445 (Rate/Dose Change - Provider: Shilpa Ibrahim RN) temazepam (RESTORIL) capsule 7.5 mg 7.5 mg, oral, Nightly PRN, sleep, Starting on Thu07/07/18 at 2302, Indications: Insomnia 2335 (Given - Provider: Higinio Johnson RN) 1335 (JUL Hold - Provider: Automatic Transfer Provider - Reason: Patient not available)1722 ([facility] Unhold - Provider: Automatic Transfer Provider)2319 (Given - Provider: Loraine Marx, SAUMYA) ticagrelor (BRILINTA) tablet (CANCELED) As needed, Starting on Thu07/08/18 at 1409, Intra-Procedure (CV) 1409 (Given - Provider: Shilpa Ibrahim, SAUMYA) documented in this encounter Orders Medications Ordered That Prakash ht Not Have Been Administered Count Last Ordered Date First Ordered Date bivalirudin (ANGIOMAX) 250 m g in sodium chloride 0.9% 50 mL infusion 1 07/08/2018 bivalirudin (ANGIOMAX) injection 1 07/09/19 19 ceFAZolin (ANCEF) 1 gram/10 mL in sterile water (premix) 1 07/08/2018 fentaNYL (SUBLIMAZE) preserv ative free injection 1 07/08/2018 heparin in 0.9% sodium chlor ebony 1000 units/500 mL (2 unit/mL) infusion (premix) 1 07/08/2018 iodixanol (VISIPAQUE) 320 mg iodine/mL injection 1 07/08/2018 lidocaine (XYLOCAINE) 10 mg/ mL (1 %) injection 1 07/08/2018 midazolam (VERSED) preservat red free injection 1 07/08/2018 nitroglycerin in dextrose 5% 50 mg/250 mL (200 mcg/mL) infusion (premix) 2 07/08/2018 sodium chloride 0.9% bolus 1 07/08/2018 sodium chloride 0.9% infusion 1 07/08/2018 ticagrelor (BRILINTA) tablet 1 07/08/2018 ticagrelor (BRILINTA) tablet 180 mg 1 07/08 influenza trivalent high dos e [id number] (FLUZONE HIGH DOSE) 180 mcg/0.5 mL vaccine (HIGH DOSE age 65 years and up) 0.5 mL 1 07/07/2018 General Supply Count Last Ordered Date First Or dered Date COVIDIEN 700 SCD 1 07/08/2018 ALARIS 8015 BRAIN 1 07/07/2018 ALARIS IV PUMP ARM 1 07/07/2018 Nursing Count Last Ordered Date First Orde red Date DIET COMMUNICATION 1 07/08/2018 WEIGH PATIENT 1 07/07/2018 Consult Count Last Ordered Date First Orde red Date IP CONSULT TO NUTRITION SERVICES 1 07/10/19 19 IP CONSULT TO SOCIAL WORK 2 07/08/2018 Admission Count Last Ordered Date First Orde red Date ASSIGN PATIENT STATUS 1 07/07/2018 Transfer Count Last Ordered Date First Orde red Date TRANSFER PATIENT 1 07/08/2018 CORE MEASURES Count Last Ordered Date First Ord ered Date REASON FOR NO VTE PROPHYLAXI S - HOSPITAL ADMISSION - MEDICATIONS 1 07/07/2018 Case Request Count Last Ordered Date First Orde red Date 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
--- OUTSIDE RECORDS SUMMARY | 2024-04-20 01:08 | XMS_ITS | Encounter Summary ---
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
--- OUTSIDE RECORDS SUMMARY | 2024-04-20 01:08 | XMS_ITS | Encounter Summary ---
Author Organization [facility] Healthcare Address [address] [place] [address] Care Team Providers Care Information Systems Project Manager Name Role Phone Ronald Lam DO Primary Care Provider [phone] Encounter Details Date Type Department Care Team (Late st Contact Info) Description 07/08/2018 2:30 PM COUNTRY MANAGER - 07/08/2018 4:00 PM [facility] Surgery [facility] Cardiac Catheterization Lab [address] [place] [address] Hector Desai MD [address] [place] [address] [address] [place], [place] [id number] PCI BARBARA ATHERECTOMY WITH STENT(S) - MAJOR CORONARY [id number] - [id number] Surgery Details Date/Time Status Location OR Service Patient Class Case Class Case Type Trauma Case? 07/08/2018 2:30 PM Posted CARDIAC WIRELESS NETWORK ENGINEER CCL 01 Cardiovascular Inpatient Elective Panel 1 Procedure LRB Anes Op Region Wound Class Comments PCI BARBARA ATHERECTOMY WITH CARIN NT(S) - MAJOR CORONARY [id number] - [id number] N/A Surgeon Surgeon Role Service Panel Hector Desai MD Primary Cardiovascular 1 documented in this encounter Social History Tobacco Use Types Packs/Day Years Used Date Smoking Tobacco: Never Smokeless Tobacco: Never Alcohol Use Standard Drinks/Week Comments Not Currently 0 (1 standard drink = 0.6 oz pur e alcohol) Sex and Gender Information Value Date Recorded Sex Assigned at Not on file Legal Sex Male 12:20 AM COUNTRY MANAGER Gender Identity Not on file Sexual Orientation Not on file documented as of this encounter Last Filed Vital Signs Vital Sign Reading Time Taken Comments Blood Pressure 157/82 07/08/2018 7:49 AM COUNTRY MANAGER Pulse 68 07/08/2018 12:34 PM COUNTRY MANAGER Temperature 37.1 ??C (98.7 ??F) 07/08/2018 7:49 AM CS T Respiratory Rate 18 07/08/2018 7:49 AM COUNTRY MANAGER Oxygen Saturation 92% 07/08/2018 7:49 AM COUNTRY MANAGER Inhaled Oxygen Concentration - - Weight 116.6 kg (257 lb) 07/07/2018 10:15 PM COUNTRY MANAGER Height 185.4 cm (6' 1 ) 07/07/2018 10:15 PM COUNTRY MANAGER Body Mass Index 33.91 07/07/2018 10:15 PM COUNTRY MANAGER documented in this encounter Discharge Summaries * Hector Desai MD - 07/09/2018 2:02 PM CST Discharge Summary Patient ID: Yosef Chapa [id number] 72 y.o. 1945 Date of admission: 07/07/2018 Date of discharge: 07/09/2018 Discharge Diagnoses: Primary diagnosis: Unstable angina Secondary diagnoses: Coronary artery disease Hypertension, CKD stage 3, dyslipidemia, RIOS Hospital Course: Yosef Chapa is a 72 y.o. male with known CAD, history of remote PCI/stenting ofLCX/OM branch; hypertension, CKD stage 3, dyslipidemia, RIOS. ??Patient was admitted to [facility] on 07/05/2018 with complaints of anginal chest pain with radiation to left arm for last 2-3 weeks. His troponins were negative, EKG showed left bundle branch block. ??Patient underwent coronary angiogram at [facility] on 07/06/2018 in the setting of unstable [...] aspirin and ticagrelor. ??Patient was transferred to [facility] for another attempt on the intervention. Patient [...] affect. His behavior is normal. Discharge medications: Yosef Chapa Home Medication Instructions CHAPIN:[id number] Printed on:07/09/18 0734 Medication Information allopurinol (ZYLOPRIM) 300 mg tablet [...] 1 week or as directed by your fruit checker. - No driving for 2 days after [...] AM Jessica Hollins NP HCG Nacho Lopez TRY MANAGER documented in this encounter Discharge Instructions * Discharge Instr - Diet* Kaylynn Guillaume RD - 07/09/2018 2:53 PM COUNTRY MANAGER Dietitian recommends discharge on heart healthy (low fat, 2000mg sodium) diet. Recommend continue to follow low protein diet for kidney health. Decrease protein intake to 2 meals per day. Restrict intakes of bananas, oranges, potatoes, & tomatoes if serum potassium becomes elevated. Eat 3 mealsper day, try to eat at regular times. If interested, ask Doctor for referral to outpatient Nutrition Counseling. Call [facility] Dietitian's office at [phone] for questions about your diet. TRY MANAGER TRY MANAGER documented in this encounter Medications at Time [...] : Current. ?? Total Fluid Estimated Needs: 2097.33 Fluid Needs Based on : 1 ml/kcal. [...] Day I/O Summary 07/07 1899 - 07/09 0559 In: 600 [P.O.:600] Out: 400 [Urine:400] Temp: [...] for referral to outpatient Nutrition Counseling. Call [facility] Dietitian's office at [phone] for questions about your diet. Nutrition Follow-Up : (seen for education. following per policy.) Kaylynn Guillaume RD,LD TRY MANAGER * Donald Ugalde MSW - 07/09/2018 10:29 AM CST 07/09/18 1004 Referral Data Referral Source Large Engine Assembler Referral Name Yudith Montiel Referral Reason Other (Comment) (TTW Enrollment) County Information County of Residence [place] Patient Information Primary Caregiver Self Accompanied by/Relationship Amber Arvizu,daughter, and [phone] Support System Children Support system contact info (name, phone, availablity) Amber Arvizu,daughter, and [phone]; Ayleen Rodriguez,daughter, Legal Information Have you reviewed [...] Patient choice (Home Health/Hospice) list given to patient/sales representative gas service? No Fpc Facility list given to patient/sales representative gas service? No Additional assessment Additional comments: AIRFIELD OPERATIONS SPECIALIST received SS consult for TTW enrollment. AIRFIELD OPERATIONS SPECIALIST met with pt today for TTW enrollment. Pt's daughter, Amber at bedside. AIRFIELD OPERATIONS SPECIALIST explained the outpatient program to the pt. Pt has a home in [facility] [facility]. Pt reported that he will discharged to his daughter, Amber home. Pt has noDME. Pt has an AD, copy not on file. AIRFIELD OPERATIONS SPECIALIST requested copy. Pt doesn't smoke cigarettes or drink alcohol. Pt sees his PCP and clinical associate as scheduled. Pt reported that he will like to talk to a dietitian before discharging home. AIRFIELD OPERATIONS SPECIALIST will follow-up with pt once discharged. AIRFIELD OPERATIONS SPECIALIST provided report to floor . TRY MANAGER * Donald Ugalde MSW - 07/09/2018 10:03 AM CST 07/09/18 1003 Enrollment Program Offered Transition to Wellness TRY MANAGER documented in this encounter H&P Notes * Hector Desai MD - 07/08/2018 1:31 PM CST HISTORY AND PHYSICAL Patient Name: Yosef Chapa Date of : 1945 Primary Physician: Ronald Lam DO Requesting Physician: @REQUEST@ Admission Date: 07/07/2018 Length of Stay: 1 DATE OF SERVICE: 07/08/2018 CHIEF COMPLAINT Anginal chest pain times 2-3 weeks Transferred from [facility] for planned, complex PCI on RCA HPI Yosef Chapa is a 72 y.o. male with PCI/stenting of LCX/om branch; hypertension, CKD stage 3, dyslipidemia. Patient was admitted to [facility] on 07/05/2018 with complaints of anginal chest pain with radiation to left arm for last 2-3 weeks. His symptoms were associated with mild shortnessof breath. He denies any palpitation, dizziness or loss of consciousness. His troponins were negative, EKG showed left bundle-branch block. Patient underwent coronary angiogram at [facility] on 07/06/2018 in the setting of unstable [...] aspirin and ticagrelor. Patient was transferred to [facility] yesterday for another attempt on the intervention. He has not had any recurrent chest discomfort since hospitalization. His EKG performed at [facility] which I personally evaluated shows sinus rhythm, [...] by mouth daily . Patient's father had CT at age 54 he reports that he [...] to complete this document. Hector Desai MD, [facility], [facility] TRY MANAGER documented in this encounter Nursing Notes * Veronique Mai, RN - 07/08/2018 6:43 PM CST Patient returned from pharmacy laboratory technician, alert and oriented, bedrest for 2 hours per ordered. Bedrest completed, patient up to bathroom voiding, right groin dressing remains dry and intact. No signs of bleeding, bruising or hematoma noted. Will continue to monitor for changes in condition. TRY MANAGER * Asha Haile RN - 07/08/2018 4:50 PM CST [facility] EMERGENCY [facility]PARTMENT Cardiac Information Systems Project Manager Nursing Plan of Care Name: Yosef Chapa : 1945 Age: 72 y.o. Gender: male Room/Bed: CARDIAC WIRELESS NETWORK ENGINEER POOL* Admit: 07/07/2018 6:19 PM Nursing Diagnosis: [...] Explain importance and purpose of activity restrictions TRY MANAGER * Higinio Johnson, SAUMYA - 07/07/2018 11:12 PM CST 1919 Received report from day shift nurse, Veronique KERNS. Patient a direct admit from [facility]. Vital signs stable at this time and patient on telemetry box #114. TRY MANAGER documented in this encounter Miscellaneous Notes * Plan of Care - Mary Kate Ochoa NP - 07/09/2018 3:03 PM COUNTRY MANAGER TTW OVERSEAMER met with patient at the bedside to discuss post discharge follow up. Pt getting dressed to go home. Pt states that he lives in [place]. Pt agreed to post discharge calls but is unsure of OVERSEAMER follow up in Center. Pt states that he needs a blood pressure machine and scale. Thanks for allowing TTW to participate in the care of this patient. [phone]. Donald UMANA, . TRY MANAGER * Plan of Care - Zaida Payton MSW - 07/09/2018 10:49 AM CST AIRFIELD OPERATIONS SPECIALIST met with pt. And pt.'s daughter Amber in pt.'s room this morning to discuss DC plans for pt. Amber stated to AIRFIELD OPERATIONS SPECIALIST she is the durable POA of pt. And will bring a copy in pt.'s chart. Pt. Statedhe is going to stay with his [place]. Pt. Voiced he would like to talk with an director of manufacturing about diet when DC. AIRFIELD OPERATIONS SPECIALIST voiced pt. Is going to be going home on brilliant andgave a coupon to put in pt.'s chart and meds to beds. Pt. Should be DC today 07/09/18 to home with daughter. TRY MANAGER * Plan of Care - Loraine Marx RN - 07/09/2018 2:47 AM CST Goals: [...] by Loraine Marx RN Outcome: Progressing Goal: Will remain free from injury from falls 07/09/2018 0248 by Loraine Marx, RN Outcome: Progressing 07/09/2018 0247 by Loraine Marx, RN Outcome: Progressing 07/09/2018 0246 by Loraine Marx RN Outcome: Progressing Goal: Will remain free from falls and injury in home environment 07/09/2018 0248 by Loraine Marx, RN Outcome: Progressing 07/09/2018 0247 by Loraine Marx RN Outcome: Progressing 07/09/2018 0246 by Loraine Marx RN Outcome: Progressing Goal: Ability to remain free from injury will improve 07/09/2018 0248 by Loraine Marx RN Outcome: Progressing 07/09/2018 0247 by Loraine Marx, RN Outcome: Progressing 07/09/2018 0246 by Loraine Marx, RN Outcome: Progressing Goal: Ability to correctly utilize injury-preventing devices as appropriate will improve 07/09/2018 0248 by Loraine Marx RN Outcome: Progressing 07/09/2018 0247 by Loraine Marx, RN Outcome: Progressing 07/09/2018 0246 by Loraine Marx RN Outcome: Progressing Problem: Activity: Goal: Mobility will improve 07/09/2018 0248 by Loraine Marx, RN Outcome: Progressing 07/09/2018 0247 by Loraine Marx RN Outcome: Progressing 07/09/2018 0246 by Loraine Marx RN Outcome: Progressing Problem: Nutritional: Goal: Ability to identify appropriate dietary choices will improve 07/09/2018 0247 by Loraine Marx RN Outcome: Progressing 07/09/2018 0246 by Loraine Marx RN Outcome: Progressing Goal: Dietary intake will improve 07/09/2018 0247 by Loraine Marx RN Outcome: Progressing 07/09/2018 0246 by Loarine Marx RN Outcome: Progressing Problem: Physical Regulation: Goal: [...] 0247 by Loraine Marx RN Outcome: Progressing TRY MANAGER * Plan of Care - Veronique Mai RN - 07/08/2018 5:26 PM CST Goals: Clinical Goals for the Shift: remains hemodynamically stable Summary: Problem: Lack of Knowledge: Goal: Knowledge of disease or condition and prescribed therapeutic regimen will improve Outcome: Progressing Problem: Health Behavior: Goal: Understanding of discharge needs will improve Outcome: Progressing TRY MANAGER * Pre-Sedation Documentation - Hector Desai MD - 07/08/2018 1:07 PM COUNTRY MANAGER Sedation Plan ASA 4 - Severe const threat to life Risks, benefits, and alternatives discussed with patient. TRY MANAGER * Plan of Care - Higinio Johnson RN - 07/08/2018 4:50 AM CST Problem: Lack of Knowledge: Goal: Knowledge of disease or condition and prescribed therapeutic regimen will improve Outcome: Progressing Summary: Patient oriented to room 918 and the hospital and given handout about medication uses and side effects. Patient vital signs stable during shift and patient placed on tele-box 114. TRY MANAGER documented in this encounter Plan of Treatment Not on file documented as of this encounter Procedures Procedure Name Priority Date/Time Associated Diagnosis Comments EGFR STAT 07/09/2018 11:47 AM COUNTRY MANAGER BASIC METABOLIC PANEL STAT 07/09/2018 11:47 AM COUNTRY MANAGER ATHERECTOMY/BARBARA MAJOR CORONARY Routine 07/08/2018 4:30 PM COUNTRY MANAGER Coronary arteriosclerosis in stillagu[place] artery Multiple-type hyperlipidemia Hypertension, unspecified type ECG 12-LEAD Routine 07/08/2018 9:32 AM COUNTRY MANAGER Coronary arteriosclerosis in still[place] artery EGFR Routine 07/08/2018 5:55 AM COUNTRY MANAGER CBC WITHOUT DIFFERENTIAL Routine 07/08/2018 5:55 AM COUNTRY MANAGER BASIC METABOLIC PANEL Routine 07/08/2018 5:55 AM COUNTRY MANAGER documented in this encounter Results * eGFR (07/09/2018 11:47 AM COUNTRY MANAGER) eGFR 48 mL/min/1.7 3 m2 [facility] Comment: Interpretive Data Reference Interval Normal ?>/= 90 mL/min/1.73m2 Mildly decreased* ? 60 - 89 mL/min/1.73m2 Mildly to moderately decreased ?45 - 59 mL/min/1.73m2 Moderately to severely decreased ??30 - 44 mL/min/1.73m2 Severely decreased ?15 - 29 mL/min/1.73m2 Kidney Failure ?< 15 ??mL/min/1.73m2 *Relative to young adult level If -Luxembourger multiply value by 1.16. Estimated glomerular filtration [...] 2015. Blood specimen (specimen) 07/09/2018 11:47 AM COUNTRY MANAGER 07/09/2018 11:51 AM COUNTRY MANAGER Narrative [facility] - 07/09/2018 12:16 PM COUNTRY MANAGER us Hector Desai MD LAB BLOOD ORDERABLES Final Resul t [facility] [address] Department [place] [address] * (ABNORMAL) Basic metabolic panel (07/09/2018 11:47 AM COUNTRY MANAGER) Sodium 141 135 - 145 mmol/L [facility] Potassium, pl 3.9 3.3 - 4.9 mmol/L [facility] Chloride 109 97 - 110 mmol/L [facility] CO2 21(L) 22 - 32 mmol/L [facility] Anion gap 11 2 - 15 mmol/L [facility] BUN 28(H) 8 - 25 mg/dL [facility] Creatinine 1.42(H) 0.80 - 1.30 mg/dL [facility] Glucose 107 70 - 199 mg/dL [facility] Comment: Interpretive Data Fasting glucose >/= 126 [...] 2017. Calcium 9.3 8.5 - 10.3 mg/dL [facility] Blood specimen (specimen) 07/09/2018 11:47 AM COUNTRY MANAGER 07/09/2018 11:51 AM COUNTRY MANAGER Narrative [facility] - 07/09/2018 12:16 PM COUNTRY MANAGER us Hector Desai MD LAB BLOOD ORDERABLES Final Resul t [facility] [address] Department [place] [address] * ATHERECTOMY/BARBARA MAJOR CORONARY (07/08/2018 4:30 PM COUNTRY MANAGER) Anatomical Region Laterality Modality X-Ray Angiograph y Narrative 07/08/2018 4:46 PM COUNTRY MANAGER CARDIAC CATHETERIZATION AND INTERVENTION REPORT DATE OF PROCEDURE: 07/08/18 INDICATION FOR PROCEDURE: ??Unstable angina, planned complex intervention on severely disease, calcific and tortuous RCA. BRIEF CLINICAL HISTORY: Yosef Chapa is a 72 y.o. male with known CAD, history of remote PCI/stenting of LCX/OM branch; hypertension, CKD stage 3, dyslipidemia, RIOS. ??Patient was admitted to [facility] on 07/05/2018 with complaints of anginal chest pain with radiation to left arm for last 2-3 weeks. ??His troponins were negative, EKG showed left bundle branch block. ?? Patient underwent coronary angiogram at [facility] on 07/06/2018 in the setting of unstable [...] aspirin and ticagrelor. ??Patient was transferred to [facility] yesterday for another attempt on the intervention. Benefits and risks of the high risk PCI were discussed with the patient in depth, and informed consent was taken prior to the procedure. ??Risks of the procedure include but are not limited to vascular complications like groin hematoma, retroperitoneal bleed, vessel perforation; periprocedural CT, cardiac arrhythmias, stroke, contrast induced nephropathy, and [...] vascular closure device 4. Moderate sedation-CPT code 19269 MODERATE SEDATION: Midazolam 1 mg , Fentanyl 25 mcg, start time ?1409 stop time ?? 1621, total direct [id number] monitoring of conscious sedation ?? 132 minutes (CPT 05349) TRAINED OBSERVER: Zahra Ibrahim RN was trained office over for moderate sedation. ACCESS SITE: ??Right common femoral artery PROCEDURE: ??After obtaining informed consent, patient was brought to the laborer powerhouse and prepped and draped in the usual sterile manner. ??After local anesthesia with lidocaine, right common femoral artery access was taken with micropuncture needle followed by insertion of a 6 Gabonese sheath over a 0.035 inch wire. ??Selective right coronary angiogram was performed using 6 Gabonese AL1 guide catheter. The angiographic and other findings, and details of intervention are given below. FINDINGS: LEFT CORONARY SYSTEM: ??Left coronary system was not injected on today's study. ??Recent angiogram performed on 07/06/2018 at [facility] showed 40-50% discrete stenosis in the mid LAD; patent previously placed stent in the OM branch. RIGHT COMMON FEMORAL ARTERY: ??Medium size vessel, subtotal, about 95% complex calcific stenosis in the mid segment with modest improvement after recent angiogram at [facility] on 07/06/2018. ??This is a very tortuous [...] artery ostium was selectively engaged using 6 Gabonese AL1 guide catheter. ??Patient received bivalirudin for procedural anticoagulation. ??Patient had received aspirin previously, was given ticagrelor 180 mg in the laborer powerhouse, since apparently he had not received a [...] Therefore, it was exchanged with a 6 Gabonese JL4 guide catheter. ??After numerous attempts, Fielder 014 3 and cm guidewire was advanced with the 1.2 x 12 mm MerchMe over the wirer helper balloon. ??The inspector and mender balloon would not advance beyond the mid [...] grand slam wire. ?? Next, a 6 Gabonese GuideLiner was advanced to support the guide [...] to complete this document. Hector Desai MD, FACC, [facility] Amberradha Everett DO CV CARDIAC CATH PROCEDURE S Final Result * ECG 12 lead (07/08/2018 9:32 AM COUNTRY MANAGER) 07/08/2018 9:32 AM COUNTRY MANAGER Narrative [facility] - 07/08/2018 10:16 AM COUNTRY MANAGER Vent Rate: 63 bpm RR Interval: 948 msec SD Interval: 187 msec QRS Duration: 165 msec QT Interval: 460 msec QTC Interval: 467 msec P-R-T [place]: 52 - -19 - 118 degrees SINUS RHYTHM LEFT BUNDLE BRANCH BLOCK ??[120+ ms QRS DURATION, 80+ ms Q/S IN V1/V2, 85+ ms R IN I/aVL/V5/V6] ABNORMAL ECG Electronically Signed By: Zechariah Virgen MD, FACC us Apryl Li MD ECG ORDERABLES Final Resul t [facility] * eGFR (07/08/2018 5:55 AM COUNTRY MANAGER) eGFR 41 mL/min/1.7 3 m2 [facility] Comment: Interpretive Data Reference Interval Normal ?>/= 90 mL/min/1.73m2 Mildly decreased* ? 60 - 89 mL/min/1.73m2 Mildly to moderately decreased ?45 - 59 mL/min/1.73m2 Moderately to severely decreased ??30 - 44 mL/min/1.73m2 Severely decreased ?15 - 29 mL/min/1.73m2 Kidney Failure ?< 15 ??mL/min/1.73m2 *Relative to young adult level If -Luxembourger multiply value by 1.16. Estimated glomerular filtration [...] 2015. Blood specimen (specimen) 07/08/2018 5:55 AM COUNTRY MANAGER 07/08/2018 6:04 AM COUNTRY MANAGER Narrative [facility] - 07/08/2018 6:27 AM COUNTRY MANAGER us Apryl Li MD LAB BLOOD ORDERABLES Final Result [facility] [address] Department [place] [address] * (ABNORMAL) Basic metabolic panel (07/08/2018 5:55 AM COUNTRY MANAGER) Sodium 141 135 - 145 mmol/L [facility] Potassium, pl 3.9 3.3 - 4.9 mmol/L [facility] Chloride 107 97 - 110 mmol/L [facility] CO2 22 22 - 32 mmol/L [facility] Anion gap 12 2 - 15 mmol/L [facility] BUN 30(H) 8 - 25 mg/dL [facility] Creatinine 1.63(H) 0.80 - 1.30 mg/dL [facility] Glucose 100 70 - 199 mg/dL [facility] Comment: Interpretive Data Fasting glucose >/= 126 [...] 2017. Calcium 9.8 8.5 - 10.3 mg/dL [facility] Blood specimen (specimen) 07/08/2018 5:55 AM COUNTRY MANAGER 07/08/2018 6:04 AM COUNTRY MANAGER Narrative [facility] - 07/08/2018 6:27 AM COUNTRY MANAGER Apryl Li MD LAB BLOOD ORDERABLES Final Result [facility] [address] Department [place] [address] * (ABNORMAL) CBC without differential (07/08/2018 5:55 AM COUNTRY MANAGER) Pathologist [facility] WBC 7.3 3.8 - 9.9 K/cumm [facility] Hgb 14.1 13.0 - 17.5 g/dL [facility] Hct 43.4 38.9 - 50.3 % [facility] Plt 143(L) 150 - 400 K/cumm [facility] MPV 10.3 9.1 - 12.3 fL [facility] RBC 4.61 4.30 - 5.80 M/cumm [facility] MCV 94.1 81.3 - 96.4 fL [facility] MCH 30.6 27.1 - 33.3 pg [facility] MCHC 32.5 32.3 - 35.7 g/dL [facility] RDW CV 13.6 11.1 - 14.9 % [facility] RDW SD 47.0 35.7 - 48.1 fL [facility] NRBC abs 0.00 0.00 - 0.01 K/cumm [facility] Blood specimen (specimen) 07/08/2018 5:55 AM COUNTRY MANAGER 07/08/2018 6:04 AM COUNTRY MANAGER Narrative [facility] - 07/08/2018 6:07 AM COUNTRY MANAGER Apryl Li MD LAB BLOOD ORDERABLES Final Result [facility] [address] Department [place] [address] documented in this encounter Visit Diagnoses Diagnosis Coronary arteriosclerosis in [place] artery- Primary Coronary arteriosclerosis in [place] artery Multiple-type hyperlipidemia Other and unspecified hyperlipidemia Hypertension, unspecified type Multiple-type hyperlipidemia Other and unspecified hyperlipidemia Hypertension Unspecified essential hypertension Coronary arteriosclerosis in still[place] artery Multiple-type hyperlipidemia Other and unspecified hyperlipidemia Hypertension, unspecified type documented in this encounter Admitting Diagnoses Diagnosis Coronary arteriosclerosis in stillagu[place]ish artery Multiple-type hyperlipidemia Other and unspecified hyperlipidemia Hypertension Unspecified essential hypertension documented in this encounter Administered Medications Inactive Administered Medications - up to 3 most recent administrations Medication Order MAR Action Action Date Dose Rate Site acetaminophen (TYLENOL) tablet 650 mg 650 mg, oral, Every 6 hours PRN, 1st line for pain, Starting on Thu07/07/18 at 2302 Given 07/08/2018 8:57 AM COUNTRY MANAGER 650 mg allopurinol (ZYLOPRIM) tablet 300 mg 300 mg, oral, Daily, First dose on Thu07/08/18 at 0900 Given 07/09/2018 9:31 AM COUNTRY MANAGER 300 mg Given 07/08/2018 8:58 AM COUNTRY MANAGER 300 mg aspirin enteric coated tablet 81 mg 81 mg, oral, Daily, First dose on Thu07/09/18 at 0900, Do not crush, chew, cut, dissolve, open or otherwise manipulate tablet/capsule. Given 07/09/2018 9:31 AM COUNTRY MANAGER 81 mg bivalirudin (ANGIOMAX) 250 mg in sodium chloride 0.9% 50 mL infusion Continuous PRN, Starting on [place] 07/08/18 at 1419, Intra-Procedure (CV) New Bag 07/08/2018 2:51 PM COUNTRY MANAGER 1.75 mg/kg/hr 40.8 mL/hr New Bag 07/08/2018 2:19 PM COUNTRY MANAGER 1.75 mg/kg/hr 40.8 mL/hr bivalirudin (ANGIOMAX) injection As needed, Starting on [place] 07/08/18 at 1417, Intra-Procedure (CV) Given 07/08/2018 2:17 PM COUNTRY MANAGER 87.45 mg carvedilol (COREG) tablet 25 mg 25 mg, oral, 2 times daily with meals (bkfst, dinner), First dose on [place] 07/08/18 at 0800 Given 07/09/2018 9:31 AM COUNTRY MANAGER 25 mg Given 07/08/2018 6:07 PM COUNTRY MANAGER 25 mg Given 07/08/2018 8:58 AM COUNTRY MANAGER 25 mg ceFAZolin (ANCEF) 1 gram/10 mL in sterile water (premix) Administer over 3 Minutes, Continuous PRN, Starting on [place] 07/08/18 at 1525, Intra-Procedure (CV) New Bag 07/08/2018 3:25 PM COUNTRY MANAGER 1,000 mg fentaNYL (SUBLIMAZE) preservative free injection As needed, Starting on [place] 07/08/18 at 1410, Intra-Procedure (CV) Given 07/08/2018 2:10 PM COUNTRY MANAGER 25 mcg heparin in 0.9% sodium chloride 1000 units/500 mL (2 unit/mL) infusion (premix) As needed, Starting on [place] 07/08/18 at 1348, Intra-Procedure (CV) Given 07/08/2018 1:48 PM COUNTRY MANAGER 1,000 mL iodixanol (VISIPAQUE) 320 mg iodine/mL injection As needed, Starting on [place] 07/08/18 at 1625, Intra-Procedure (CV) Given 07/08/2018 4:25 PM COUNTRY MANAGER 108 mL lidocaine (XYLOCAINE) 10 mg/mL (1 %) injection As needed, Starting on [place] 07/08/18 at 1412, Intra-Procedure (CV), Indications: Administration of Local AnesthesiaIndications:Administrat ion of Local Anesthesia Given 07/08/2018 2:12 PM COUNTRY MANAGER 20 mL Right Groin midazolam (VERSED) preservative free injection Administer over 2 Minutes, As needed, Starting on [place] 07/08/18 at 1410, Intra-Procedure (CV) Given 07/08/2018 2:10 PM COUNTRY MANAGER 1 mg nitroglycerin in dextrose 5% 50 mg/250 mL (200 mcg/mL) infusion (premix) Continuous PRN, Starting on [place] 07/08/18 at 1547, Intra-Procedure (CV) New Bag 07/08/2018 3:47 PM COUNTRY MANAGER 150 mcg nitroglycerin in dextrose 5% 50 mg/250 mL (200 mcg/mL) infusion (premix) Continuous PRN, Starting on [place] 07/08/18 at 1616, Intra-Procedure (CV) New Bag 07/08/2018 4:16 PM COUNTRY MANAGER 100 mcg simvastatin (ZOCOR) tablet 40 mg 40 mg, oral, Nightly, First dose on Thu07/07/18 at 2345 Given 07/08/2018 9:05 PM COUNTRY MANAGER 40 mg Given 07/07/2018 11:33 PM COUNTRY MANAGER 40 mg sodium chloride 0.9% bolus Continuous PRN, Starting on [place] 07/08/18 at 1547, Intra-Procedure (CV) New Bag 07/08/2018 3:47 PM COUNTRY MANAGER 250 mL sodium chloride 0.9% infusion Continuous PRN, Starting on [place] 07/08/18 at 1346, Intra-Procedure (CV) Rate/Dose Change 07/08/2018 2:45 PM COUNTRY MANAGER 100 mL/hr 100 mL/hr New Bag 07/08/2018 1:46 PM COUNTRY MANAGER 50 mL/hr 50 mL/hr temazepam (RESTORIL) capsule 7.5 mg 7.5 mg, oral, Nightly PRN, sleep, Starting on Thu07/07/18 at 2302, Indications: InsomniaIndications:Insomnia Given 07/08/2018 11:19 PM COUNTRY MANAGER 7.5 mg Given 07/07/2018 11:35 PM COUNTRY MANAGER 7.5 mg ticagrelor (BRILINTA) tablet 90 mg 90 mg, oral, 2 times daily, First dose on [place] 07/08/18 at 2200 Given 07/09/2018 9:31 AM COUNTRY MANAGER 90 mg Given 07/08/2018 9:05 PM COUNTRY MANAGER 90 mg ticagrelor (BRILINTA) tablet As needed, Starting on [place] 07/08/18 at 1409, Intra-Procedure (CV) Given 07/08/2018 2:09 PM COUNTRY MANAGER 180 mg documented in this encounter Discontinued Medications [...] Recently Administered Medications Times are shown in COUNTRY MANAGER. Scheduled Medication Order 07/07/2018 07/08/2018 07/09/2018 allopurinol [...] mg, oral, Daily, First dose on Carolina 19 at 0900, Do not crush, chew, cut, dissolve, open or otherwise manipulate tablet/capsule. 0858 (Given - Provider: Veronique Mai RN)1335 ([facility] Hold - Provider: Automatic Transfer Provider - Reason: Patient not available)1649 ([facility] Unhold - Provider: Hector Desai MD) aspirin enteric coated tablet 81 mg 81 mg, oral, Daily, First dose on Thu07/09/18 at 0900, Do not crush, chew, cut, dissolve, open or otherwise manipulate tablet/capsule. 0931 (Given - Provider: Alissa Junior, RN) carvedilol (COREG) tablet 25 mg 25 mg, oral, 2 times daily with meals (bkfst, dinner), First dose on Thu07/08/18 at 0800 0858 (Given - Provider: Veronique Mai, RN)1335 ([facility] Hold - Provider: Automatic Transfer Provider - Reason: Patient not available)1722 ([facility] Unhold - Provider: Automatic Transfer Provider)1807 (Given - Provider: Veronique Mai, RN) 0931 (Given - Provider: Alissa Junior, SAUMYA) simvastatin (ZOCOR) tablet 40 mg 40 mg, oral, Nightly, First dose on Thu07/07/18 at 2345 2333 (Given - Provider: Higinio Johnson, SAUMYA) 1335 ([facility] Hold - Provider: Automatic Transfer Provider - Reason: Patient not available)1722 ([facility] Unhold - Provider: Automatic Transfer Provider)2105 (Given - Provider: Loraine Marx, SAUMYA) spironolactone (ALDACTONE) tablet 25 mg (CANCELED) 25 mg, oral, Daily, First dose on Thu07/08/18 at 0900 0858 (Given - Provider: Veronique Mai, SAUMYA)1335 ([facility] Hold - Provider: Automatic Transfer Provider - Reason: Patient not available)1337 ([facility] Unhold - Provider: Hector Desai MD) ticagrelor (BRILINTA) tablet 90 mg 90 mg, oral, 2 times daily, First dose on Thu07/08/18 at 2200 2105 (Given - Provider: Loraine Marx, SAUMYA) 0931 (Given - Provider: Alissa Junior, SAUMYA) Continuous Medication Order 07/07/2018 07/08/2018 07/09/2018 sodium chloride 0.9% infusion (CANCELED) 100 mL/hr, intravenous, Continuous, Starting on Thu07/08/18 at 1730, Total 1.5 Liters, then KVO 1713 (Not Given - Provider: Veronique Mai, RN - Reason: Order parameters not met) 0118 (New Bag - Provider: Loraine Marx, SAUMYA) PRN Medication Order 07/07/2018 07/08/2018 07/09/2018 acetaminophen (TYLENOL) tablet 650 mg 650 mg, oral, Every 6 hours PRN, 1st line for pain, Starting on Thu07/07/18 at 2302 0857 (Given - Provider: Veronique Mai, RN)1335 ([facility] Hold - Provider: Automatic Transfer Provider - Reason: Patient not available)1722 ([facility] Unhold - Provider: Automatic Transfer Provider) bivalirudin (ANGIOMAX) 250 mg in sodium chloride 0.9% 50 mL infusion (CANCELED) Continuous PRN, Starting on [place] 07/08/18 at 1419, Intra-Procedure (CV) 1419 (New Bag - Provider: Shilpa Ibrahim RN)1451 (New Bag - Provider: Shilpa Ibrahim RN)1622 (Stopped - Provider: Asha Haile RN) bivalirudin [...] Intra-Procedure (CV) 1348 (Given - Provider: Hector Koul, MD - Comment: used on the table [...] 1410 (Given - Provider: Shilpa Ibrahim RN) nitroglycerin in dextrose 5% 50 mg/250 mL [...] 0.9% infusion (COMPLETED) Continuous PRN, Starting on [place] 07/08/18 at 1346, Intra-Procedure (CV) 1346 (New Bag - Provider: Cara Almanza, SAUMYA)1445 (Rate/Dose Change - Provider: Shilpa Ibrahim, SAUMYA) temazepam (RESTORIL) capsule 7.5 mg 7.5 mg, oral, Nightly PRN, sleep, Starting on Thu07/07/18 at 2302, Indications: Insomnia 2335 (Given - Provider: Higinio Johnson RN) 1335 ([facility] Hold - Provider: Automatic Transfer Provider - Reason: Patient not available)1722 ([facility] Unhold - Provider: Automatic Transfer Provider)2319 (Given - Provider: Loraine Marx, SAUMYA) ticagrelor (BRILINTA) tablet (CANCELED) As needed, Starting on [place] 07/08/18 at 1409, Intra-Procedure (CV) 1409 (Given - Provider: Shilpa Ibrahim, SAUMYA) documented in this encounter Orders Medications Ordered That Prakash ht Not Have Been Administered Count Last Ordered Date First Ordered Date aspirin enteric coated tablet 81 mg 1 07/08 sodium chloride 0.9% infusion 1 07/08/2018 ticagrelor (BRILINTA) tablet 180 mg 1 07/08 ticagrelor (BRILINTA) tablet 90 mg 1 2018 acetaminophen (TYLENOL) tablet 650 mg 1 10/2018 allopurinol (ZYLOPRIM) tablet 300 mg 1 10/2018 aspirin enteric coated tablet 325 mg 1 10/2018 carvedilol (COREG) tablet 25 mg 1 9 influenza trivalent high dos e 1224-7211 (FLUZONE HIGH DOSE) 180 mcg/0.5 mL vaccine (HIGH DOSE age 65 years and up) 0.5 mL 1 07/07/2018 simvastatin (ZOCOR) tablet 40 mg 1 07/08/19 19 spironolactone (ALDACTONE) tablet 25 mg 1 0 07/07/2018 temazepam (RESTORIL) capsule 7.5 mg 1 07/07 General Supply Count Last Ordered Date First Or dered Date COVIDIEN 700 SCD 1 07/08/2018 MISTYRIS 8015 BRAIN 1 07/07/2018 ALARIS IV PUMP [...] Date First Orde red Date CASE REQUEST WIRELESS NETWORK ENGINEER 1 07/08/2018 documented in this encounter Care Teams Information Systems Project Manager Relationship Specialty Start Date End Date Ronald Lam DO PCP - General 07/07/18 documented as of this encounter
--- OUTSIDE RECORDS SUMMARY | 2024-04-20 01:08 | XMS_ITS | Encounter Summary ---
Author Organization [facility] Address [address] [place] [address] Care Team Providers Care Director Compensation Name Role Phone Emmanuel Jimenez MD Primary Care Provider [phone] Ronald Lam DO Primary Care Provider [phone] Donald Ugalde HYBRID POWERTRAIN DEVELOPMENT ENGINEER Unavailable Mary Kate Ochoa DNP Unavailable Tucker Fry HYBRID POWERTRAIN DEVELOPMENT ENGINEER Unavailable [phone] Encounter Details Date Type Department Care Team (Late st Contact Info) Description 07/06/2018 [place] Only [facility] [facility] [address] [place] [address] Scanning, Provider Social History Tobacco Use Types Packs/Day Years Used Date Smoking Tobacco: Never Assessed Sex and Gender Information Value Date Recorded Sex Assigned at Not on file 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 Gender Identity Not on file Sexual Orientation Not on file documented as of this encounter Plan of Treatment Not on file documented as of this encounter Procedures Procedure Name Priority Date/Time Associated Diagnosis Comments CARDIOLOGY DOCUMENT SCAN 07/06/2018 SCAN - RADIOLOGY/IMAGING 07/05/2018 documented in this encounter Results * SCAN - CARDIOLOGY (07/06/2018) Anatomical Region Laterality Modality Other us Provider Scanning CV CARDIAC SERVICES PROCEDURES Edited Result - Final * SCAN - RADIOLOGY/IMAGING (07/05/2018) Anatomical Region Laterality Modality Other us Provider Scanning Final Result documented in this encounter Visit Diagnoses Not on filedocumented in this encounter Care Teams Director Compensation Relationship Specialty Start Date End Date Emmanuel Jimenez MD PCP - General 08/04/06 07/06/18 Ronald Lam DO PCP - General 07/07/18 Donald Ugalde, HYBRID POWERTRAIN DEVELOPMENT ENGINEER [address] [place] [address] CHAP Outpatient Lead Generation Marketing Manager 07/12/18 09/12/18 Mary Kate Ochoa DNP [address] [place] [address] Nurse Practitioner Internal Medicine 07/12/18 09/12/18 Tucker Fry, HYBRID POWERTRAIN DEVELOPMENT ENGINEER [address] [place] [address] CHAP Outpatient Lead Generation Marketing Manager 07/12/18 09/12/18 documented as of this encounter
--- OUTSIDE RECORDS SUMMARY | 2024-04-20 01:08 | XMS_ITS | Encounter Summary ---
Author Organization [facility] Medical [facility] Address [address] [place] [address] Care Team Providers Care Batch Plant Supervisor Name Role Phone Ronald Lam DO Primary Care Provider [phone] Donald Ugalde SPONGE HOOKER Unavailable Mary Kate Ochoa DNP Unavailable [phone] Tucker Fry SPONGE HOOKER Unavailable [phone] Encounter Details Date Type Department Care Team (Late st Contact Info) Description 07/12/2018 Telephone [facility] [address] [address] Hector Desai MD [address] [place] [address] Social History Tobacco Use Types Packs/Day Years Used Date Smoking Tobacco: Never Smokeless Tobacco: Never Alcohol Use Standard Drinks/Week Comments Not Currently 0 (1 standard drink = 0.6 oz pur e alcohol) Sex and Gender Information Value Date Recorded Sex Assigned at Not on file Legal Sex Male 12:20 AM PHARMACEUTICAL LABORATORY TECHNICIAN Gender Identity Not on file Sexual Orientation Not on file documented as of this encounter Miscellaneous Notes * Telephone Encounter - Darling Toussaint RN - 07/12/2018 12:41 PM CDT Records faxed as requested. * Telephone Encounter - Verónica Dietrich - 07/12/2018 12:20 PM CDT Mignon called from [facility]. Pt is scheduled for an appointment with their [facility] office tomorrow. Mignon is sending over a request for pt's most recent lab results, medlist, discharge report, office note, and stent report. cb [phone] documented in this encounter Plan of Treatment Not on file documented as of this encounter Visit Diagnoses Not on filedocumented in this encounter Care Teams Batch Plant Supervisor Relationship Specialty Start Date End Date Ronald Lam DO PCP - General 07/07/18 Donald Ugalde MSW [address] [facility] [address] [place] [address] CHAP Outpatient Tube Cutter 07/12/18 09/12/18 Mary Kate Ochoa DNP [address] [place] [id number] Nurse Practitioner Internal Medicine 07/12/18 09/12/18 Tucker Fry, SPONGE HOOKER [address] [place] [address] CHAP Outpatient Tube Cutter 07/12/18 09/12/18 documented as of this encounter
--- OUTSIDE RECORDS SUMMARY | 2024-04-20 01:08 | XMS_ITS | Encounter Summary ---
Author Organization [facility] Medical [facility] Address [address] [place] [address] Care Team Providers Care Certified Health Education Specialist Name Role Phone Ronald Lam DO Primary Care Provider [phone] Donald Ugalde HELMET COVERER Unavailable Mary Kate Ochoa DNP Unavailable Tucker Fry HELMET COVERER Unavailable Encounter Details Date Type Department Care Team (Late st Contact Info) Description 07/30/2018 Telephone [facility] [address] [place] [address] Hector Desai MD [address] [address] Social History Tobacco Use Types Packs/Day Years Used Date Smoking Tobacco: Never Smokeless Tobacco: Never Alcohol Use Standard Drinks/Week Comments Not Currently 0 (1 standard drink = 0.6 oz pur e alcohol) Sex and Gender Information Value Date Recorded Sex Assigned at Not on file 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 Encouraged patient to call office with any further questions or concerns. * Telephone Encounter - Jessica Hollins NP - 07/30/2018 12:12 PM CDT Well I gave him my best Brilinta is better speech yesterday, so he is aware that his risk of another AL over the next year is higher if we switch him. Go ahead and send Rx for clopidogrel 75mg daily but tell him to take a loading dose of 300mg the first day. Thanks. * Telephone Encounter - Darling Toussaint RN - 07/30/2018 11:16 AM CDT Will review with Mayra Lopez to see if okay to switch to Plavix. * Telephone Encounter - Verónica Dietrich - 07/30/2018 11:06 AM CDT Pt reports Brilinta is over $300 dollars and wants to be switched to a less expensive blood thinner. [phone] documented in this encounter Plan of Treatment Not on file documented as of this encounter Visit Diagnoses Not on filedocumented in this encounter Discontinued Medications Medication Sig Discontinue Reason Start Date End Da te ticagrelor (BRILINTA) 90 mg tabletIndications:Coronary arteriosclerosis in [place] artery Take 1 tablet (90 mg total) by mouth 2 (two) times a day Alternate therapy 07/29/2018 07/30/2018 documented as of this encounter Care Teams Certified Health Education Specialist Relationship Specialty Start Date End Date Ronald Lam DO PCP - General 07/07/18 Donald Ugalde, DONG [address] [facility] [address] [address] CHAP Outpatient Insurance Underwriting Assistant 07/12/18 09/12/18 Mary Kate Ochoa, STUART [address] [facility] [address] [place] [address] Nurse Practitioner Internal Medicine 07/12/18 09/12/18 Tucker Fry, HELMET COVERER [address] [facility] [address] [place] [address] CHAP Outpatient Insurance Underwriting Assistant 07/12/18 09/12/18 documented as of this encounter
--- OUTSIDE RECORDS SUMMARY | 2024-04-20 01:13 | XMS_ITS | Encounter Summary ---
Author Organization [facility] Address [address] [place] [address] Phone Care Team Providers Care Public Health Specialist Name Role Phone Unavailable Primary Care Provider Unavailabl e Encounter Details Date Type Department Care Team (Late st Contact Info) Description 05/02/2015 Legacy Encounter - Labs HISTORICAL CONVERSION CENTRAL [address] [place], [place] [id number], [place] [address] Leonardo Cuevas MD [facility] [facility] [facility] [place] [address] Social History Tobacco Use Types Packs/Day Years Used Date Smoking Tobacco: Never Assessed Sex and Gender Information Value Date Recorded Sex Assigned at Not on file Gender Identity Not on file Sexual Orientation Not on file documented as of this encounter Plan of Treatment Not on file documented as of this encounter Procedures Procedure Name Priority Date/Time Associated Diagnosis Comments MANUALLY ENTERED ORDER Routine 05/02/2015 12:00 AM MULTIMEDIA PROGRAMMER documented in this encounter Results * (ABNORMAL) Manually Entered Order (05/02/2015 12:00 AM MULTIMEDIA PROGRAMMER) Creatinine 1.5(H) 0.5 - 1.3 EXTERNAL LAB Estimated Glomerular Filtration Rate (eGFR) 46(L) 60 - 100 EXTERNAL LAB Alanine Aminotransferase (ALT), Serum/Plasma 39 12 - 78 EXTERNAL LAB LDL 97 0 - 130 EXTERNAL LAB Cholesterol, HDL 38 10 - 50 EXTERNAL LAB TRIGLYCERIDES 166(H) 0 - 150 EXTERNAL LAB TSH, Serum/Plasma 6.4 EXTERNAL LAB Uric Acid (Urate) 5 EXTERNAL LAB TOTAL PSA 3.55 EXTERNAL LAB 05/02/2015 Leonardo Cuevas MD LAB BLOOD ORDERABLES EXTERNAL LAB documented in this encounter Visit Diagnoses Not on filedocumented in this encounter
--- OUTSIDE RECORDS SUMMARY | 2024-04-20 01:13 | XMS_ITS | Encounter Summary ---
Author Organization [facility] Address [address] [place] [address] Phone Care Team Providers Care Captain Waiter Name Role Phone Unavailable Primary Care Provider Unavailabl e Encounter Details Date Type Department Care Team (Late st Contact Info) Description 10/23/2014 Legacy Encounter - Labs HISTORICAL CONVERSION CENTRAL [address] [place], [place] [id number], [place] [address] Leonardo Cuevas MD [address] [facility] [facility] [place] [address] Social History Tobacco Use Types Packs/Day Years [...] Associated Diagnosis Comments MANUALLY ENTERED ORDER Routine 10/23/2014 12:00 AM CDT documented in this encounter Results * (ABNORMAL) Manually Entered Order (10/23/2014 12:00 AM CDT) Creatinine 1.6(H) 0.5 - 1.3 EXTERNAL LAB Estimated Glomerular Filtration Rate (eGFR) 43(L) 60 - 100 EXTERNAL LAB 10/23/2014 Leonardo Cuevas MD LAB BLOOD ORDERABLES EXTERNAL LAB documented in this encounter Visit Diagnoses Not on filedocumented in this encounter
--- OUTSIDE RECORDS SUMMARY | 2024-04-20 01:13 | XMS_ITS | Encounter Summary ---
Author Organization [facility] Address [address] [place] [address] Phone Care Team Providers Care Senior Sales Director Name Role Phone Unavailable Primary Care Provider Unavailabl e Encounter Details Date Type Department Care Team (Late st Contact Info) Description 05/29/2017 Legacy Encounter - Labs HISTORICAL CONVERSION CENTRAL [address] [place], [place] [id number], [place] [address] Leonardo Cuevas MD [address] [facility] [facility] [place] [address] Social History Tobacco Use Types Packs/Day Years [...] Associated Diagnosis Comments MANUALLY ENTERED ORDER Routine 05/29/2017 12:00 AM PETROGRAPHER documented in this encounter Results * (ABNORMAL) Manually Entered Order (05/29/2017 12:00 AM PETROGRAPHER) Creatinine 1.7(H) 0.5 - 1.3 EXTERNAL LAB Estimated Glomerular Filtration Rate (eGFR) 40(L) 60 - 100 EXTERNAL LAB Protein/Creatinine, Urine 60 EXTERNAL LAB Cholesterol, LDL, Serum/Plasma 84 0 - 130 EXTERNAL LAB Alanine Aminotransferase (ALT), Serum/Plasma 33 12 - 78 EXTERNAL LAB 05/29/2017 Leonardo Cuevas MD LAB BLOOD ORDERABLES EXTERNAL LAB documented in this encounter Visit Diagnoses Not on filedocumented in this encounter
--- OUTSIDE RECORDS SUMMARY | 2024-04-20 01:13 | XMS_ITS | Encounter Summary ---
Author Organization [facility] Svetlana utiiliana Address [address] [place] [address] Phone Care Team Providers Care Rivet Sorter Name Role Phone Unavailable Primary Care Provider Unavailabl e Encounter Details Date Type Department Care Team (Late st Contact Info) Description 07/13/2018 Legacy Encounter - Labs HISTORICAL CONVERSION CENTRAL [address] [place] [address], [place] [address] Leonardo Cuevas MD [address] [facility], SUITE [facility]0 [place] [address] Social History Tobacco Use Types Packs/Day Years Used Date Smoking Tobacco: Never Sex and Gender Information Value Date Recorded Sex Assigned at Not on file Gender Identity Not on file Sexual Orientation Not on file documented as of this encounter Plan of Treatment Not on file documented as of this encounter Procedures Procedure Name Priority Date/Time Associated Diagnosis Comments CLINICAL PDF REPORT [id number] Routine 07/13/2018 9:50 AM CDT EOSINOPHIL COUNT (U) Routine 07/13/2018 9:50 AM CDT CBC (H/H, RBC, INDICES, WBC, PLT) Routine 07/13/2018 9:50 AM CDT SODIUM, URINE RANDOM Routine 07/13/2018 9:50 AM CDT URINALYSIS, COMPLETE Routine 07/13/2018 9:50 AM CDT RENAL FUNCTION PANEL (RFP) Routine 07/13/2018 9:50 AM CDT documented in this encounter Results * Clinical Pdf Report [id number] (07/13/2018 9:50 AM CDT) PDF EXTERNAL L AB (NON-INTERFACED) 07/13/2018 9:50 AM CDT 07/15/2018 Leonardo Cuevas MD LAB BLOOD ORDERABLES Performing Organization Address [facility] de Phone Number EXTERNAL LAB (NON-INTERFACED) * Eosinophil Count (U) (07/13/2018 9:50 AM CDT) Eosinophils/100 leukocytes, Urine sediment 0 See Note: % eos EXTERNAL LAB (NON-INTERFACE D) Comment: Reference Range: No Normals Established 07/13/2018 9:50 AM CDT 07/15/2018 Leonardo Cuevas MD LAB BLOOD ORDERABLES Performing Organization Address [facility] de Phone Number EXTERNAL LAB (NON-INTERFACED) * Urinalysis, Complete (07/13/2018 9:50 AM CDT) Color of Urine YELLOW YELLOW EXTER NAL LAB (NON-INTERFA [place]) Appearance of Urine CLEAR CLEAR EXTERNAL LAB (NON-INTERFA [place]) Specific gravity of Urine 1.023 1.001 - 1.035 EXTERNAL LAB (NON-INTERFA [place]) pH of Urine < OR = 5.0 5.0 - 8.0 EXTERNA L LAB (NON-INTERFA [place]) Glucose, Urine NEGATIVE NEGATIVE EXTER NAL LAB (NON-INTERFA [place]) Reducing substances, Urine CANCELED NEGATIVE % EXTERNAL LAB (NON-INTERFA [place]) Comment:Result canceled by t elysia ancillary. Bilirubin, total, Urine NEGATIVE NEGATIVE EXTERNAL LAB (NON-INTERFA [place]) Ketones, Urine NEGATIVE NEGATIVE EXTER NAL LAB (NON-INTERFA [place]) Hemoglobin, Urine NEGATIVE NEGATIVE EXTERNAL LAB (NON-INTERFA [place]) Protein, Urine NEGATIVE NEGATIVE EXTER NAL LAB (NON-INTERFA [place]) Nitrite, Urine NEGATIVE NEGATIVE EXTER NAL LAB (NON-INTERFA [place]) Leukocyte esterase, Urine NEGATIVE NEGATIVE EXTERNAL LAB (NON-INTERFA [place]) Leukocytes, Urine sediment NONE SEEN < OR = 5 /HPF EXTERNAL LAB (NON-INTERFA [place]) Erythrocytes, Urine sediment NONE SEEN < OR = 2 /HPF EXTERNAL LAB (NON-INTERFA [place]) Epithelial cells, squamous, Urine sediment NONE SEEN < OR = 5 /HPF EXTERNAL LAB (NON-INTERFA [place]) Transitional cells, Urine sediment CANCELED < OR = 5 /HPF EXTERNAL LAB (NON-INTERFA [place]) Comment:Result canceled by t he ancillary. Epithelial cells, renal, Urine sediment CANCELED < OR = 3 /HPF EXTERNAL LAB (NON-INTERFA [place]) Comment:Result canceled by t he ancillary. Bacteria, Urine sediment NONE SEEN NONE SEEN /HPF EXTERNAL LAB (NON-INTERFA [place]) Calcium oxalate crystals, Urine sediment CANCELED NONE OR FEW /HPF EXTERNAL LAB (NON-INTERFA [place]) Comment:Result canceled by t he ancillary. Triple phosphate crystals, Urine sediment CANCELED NONE OR FEW /HPF EXTERNAL LAB (NON-INTERFA [place]) Comment:Result canceled by t he ancillary. Urate crystals, Urine sediment CANCELED NONE OR FEW /HPF EXTERNAL LAB (NON-INTERFA [place]) Comment:Result canceled by t he ancillary. Amorphous sediment, Urine sediment CANCELED NONE OR FEW /HPF EXTERNAL LAB (NON-INTERFA [place]) Comment:Result canceled by t he ancillary. Crystals, Urine sediment CANCELED NONE SEEN /HPF EXTERNAL LAB (NON-INTERFA [place]) Comment:Result canceled by t he ancillary. Hyaline casts, Urine sediment NONE SEEN NONE SEEN /LPF EXTERNAL LAB (NON-INTERFA [place]) Granular casts, Urine sediment CANCELED NONE SEEN /LPF EXTERNAL LAB (NON-INTERFA [place]) Comment:Result canceled by t he ancillary. Casts, Urine sediment CANCELED NONE SEEN /LPF EXTERNAL LAB (NON-INTERFA [place]) Comment:Result canceled by t he ancillary. Yeast, Urine sediment CANCELED NONE SEEN /HPF EXTERNAL LAB (NON-INTERFA [place]) Comment:Result canceled by t he ancillary. Service comment CANCELED EXTE RNAL LAB (NON-INTERFA [place]) Comment:Result canceled by t he ancillary. Service comment CANCELED EXTE RNAL LAB (NON-INTERFA [place]) Comment:Result canceled by t he ancillary. 07/13/2018 9:50 AM CDT 07/15/2018 Leonardo Cuevas MD LAB URINE ORDERABLES Performing Organization Address [facility] de Phone Number EXTERNAL LAB (NON-INTERFACED) * CBC (H/H, RBC, Indices, WBC, Plt) (07/13/2018 9:50 AM CDT) Leukocytes, Blood 6.1 3.8 - 10.8 Thousand/u L EXTERNAL LAB (NON-INTERFAC ED) Erythrocytes (RBC) 4.74 4.20 - 5.80 Million/uL EXTERNAL LAB (NON-INTERFAC ED) Hemoglobin (HGB) 14.7 13.2 - 17.1 g/dL EXTERNAL LAB (NON-INTERFAC ED) Hematocrit (HCT) 45.0 38.5 - 50.0 % EXTERNAL LAB (NON-INTERFAC ED) MCV 94.9 80.0 - 100.0 fL EXTERNAL LAB (NON-INTERFAC ED) MCH 31.0 27.0 - 33.0 pg EXTERNAL LAB (NON-INTERFAC ED) MCHC 32.7 32.0 - 36.0 g/dL EXTERNAL LAB (NON-INTERFAC ED) Erythrocyte Distribution Width (RDW) 13.6 11.0 - 15.0 % EXTERNAL LAB (NON-INTERFAC ED) Platelets, Blood 178 140 - 400 Thousand/u L EXTERNAL LAB (NON-INTERFAC ED) Platelet mean volume, Blood 11.3 7.5 - 12.5 fL EXTERNAL LAB (NON-INTERFAC ED) 07/13/2018 9:50 AM CDT 07/15/2018 Leonardo Cuevas MD LAB BLOOD ORDERABLES Performing Organization Address [facility] Co de Phone Number EXTERNAL LAB (NON-INTERFACED) * Sodium, Urine Random (07/13/2018 9:50 AM CDT) Sodium/Creatini ne, Urine 36 20 - 233 mmol/g creat EXTERNAL LAB (NON-INTERFACE D) Sodium, Urine 69 28 - 272 mmol/L EXTERNAL LAB (NON-INTERFACE D) Creatinine, Urine 194 20 - 320 mg/dL EXTERNAL LAB (NON-INTERFACE D) 07/13/2018 9:50 AM CDT 07/15/2018 Leonardo Cuevas MD LAB URINE ORDERABLES EXTERNAL LAB (NON-INTERFACED) * (ABNORMAL) Renal Function Panel (07/13/2018 9:50 AM CDT) Glucose, Serum/Plasma 82 65 - 139 mg/dL EXTERNAL LAB (NON-INTERFAC ED) Comment:Non-fasting referenc e interval Urea nitrogen, Serum/Plasma (BUN) 40(H) 7 - 25 mg/dL EXTERNAL LAB (NON-INTERFAC ED) Creatinine, Serum/Plasma 1.62(H) 0.70 - 1.18 mg/dL EXTERNAL LAB (NON-INTERFAC ED) Comment: For patients >49 years of age, the reference limit for Creatinine is approximately 13% higher for people identified as -[place] Islander. eGFR, non 41(L) > OR = 60 mL/min/1. 73m2 EXTERNAL LAB (NON-INTERFAC ED) eGFR, 48(L) > OR = 60 mL/min/1. 73m2 EXTERNAL LAB (NON-INTERFAC ED) Urea nitrogen/Creatinin e, Serum/Plasma 25(H) 6 - 22 (calc) EXTERNAL LAB (NON-INTERFAC ED) Sodium, Serum/Plasma 140 135 - 146 mmol/L EXTERNAL LAB (NON-INTERFAC ED) Potassium, Serum/Plasma 4.0 3.5 - 5.3 mmol/L EXTERNAL LAB (NON-INTERFAC ED) Chloride, Serum/Plasma 107 98 - 110 mmol/L EXTERNAL LAB (NON-INTERFAC ED) Carbon dioxide CO2), total, Serum/Plasma 21 20 - 32 mmol/L EXTERNAL LAB (NON-INTERFAC ED) Calcium, Serum/Plasma 9.7 8.6 - 10.3 mg/dL EXTERNAL LAB (NON-INTERFAC ED) Phosphate, Serum/Plasma 3.4 2.1 - 4.3 mg/dL EXTERNAL LAB (NON-INTERFAC ED) Albumin, Serum/Plasma 4.2 3.6 - 5.1 g/dL EXTERNAL LAB (NON-INTERFAC ED) 07/13/2018 9:50 AM CDT 07/15/2018 Leonardo Cuevas MD LAB BLOOD ORDERABLES EXTERNAL LAB (NON-INTERFACED) documented in this encounter Visit Diagnoses Not on filedocumented in this encounter
--- OUTSIDE RECORDS SUMMARY | 2024-04-20 01:13 | XMS_ITS | Encounter Summary ---
Author Organization [facility] Svetlana utions Address [address] [place] [address] Phone Care Team Providers Care Extruding Machine Operator Name Role Phone Ronald Lam DO Primary Care Provider Encounter Details Date Type Department Care Team (Late st Contact Info) Description 02/07/2019 Orders Only [facility] Nephrology and Hypertension [address] [place], [address] [place] [address] Leonardo Cuevas MD [address] [facility], [address] [facility] [place] [address] Social History Tobacco Use Types Packs/Day Years Used Date Smoking Tobacco: Never Smokeless Tobacco: Never Alcohol Use Standard Drinks/Week Comments No 0 (1 standard drink = 0.6 oz pur e alcohol) AUDIT-C Answer Date Recorded Frequency of Alcohol Consumption Never 08/14/2018 Average Number of Drinks Not on file 019 Frequency of Binge Drinking Not on file 08/02 Sex and Gender Information Value Date Recorded Sex Assigned at Not on file Gender Identity Not on file Sexual Orientation Not on file documented as of this encounter Plan of Treatment Not on file documented as of this encounter Procedures Procedure Name Priority Date/Time Associated Diagnosis Comments TOTAL PROTEIN W/ CREATININE, URINE, RANDOM Routine 02/07/2019 7:50 AM CDT RENAL FUNCTION PANEL (RFP) Routine 02/07/2019 7:50 AM CDT documented in this encounter Results * (ABNORMAL) Total Protein w/ Creatinine, Urine, Random (02/07/2019 7:50 AM CDT) Creatinine, Urine 159 20 - 320 mg/dL [facility] ([facility]) Protein/Creati nine, Urine 195(H) 22 - 128 mg/g creat [facility] ([facility]) Protein, Urine 31(H) 5 - 25 mg/dL [facility] ([facility]) 02/07/2019 7:50 AM CDT 02/07/2019 7:51 AM CDT Narrative Resulting Agency Comment Performing Organization Information: ?Site ID: [id number] ?Name: [facility] ?Address: [facility] [place] [address] ?Director: Khoi Grissom D.O., VANESSA Leonardo Cuevas MD LAB URINE ORDERABLES [facility] (ST) * (ABNORMAL) Renal Function Panel (RFP) (02/07/2019 7:50 AM CDT) Glucose, Serum/Plasma 106(H) 65 - 99 mg/dL [facility] ([facility]) Comment: ? Fasting reference interval For someone without known diabetes, a glucose value between 100 and 125 mg/dL is consistent with prediabetes and should be confirmed with a follow-up test. Urea nitrogen, Serum/Plasma (BUN) 21 7 - 25 mg/dL [facility] ([facility]) Creatinine, Serum/Plasma 1.53(H) 0.70 - 1.18 mg/dL [facility] ([facility]) Comment: For patients >49 years of age, the reference limit for Creatinine is approximately 13% higher for people identified as -Vietnamese. eGFR, non 44(L) > OR = 60 mL/min/1. 73m2 [facility] ([facility]) eGFR, 51(L) > OR = 60 mL/min/1. 73m2 [facility] ([facility]) Urea nitrogen/Creatinin e, Serum/Plasma 14 6 - 22 (calc) [facility] ([facility]) Sodium, Serum/Plasma 141 135 - 146 mmol/L [facility] ([facility]) Potassium, Serum/Plasma 3.9 3.5 - 5.3 mmol/L [facility] ([facility]) Chloride, Serum/Plasma 107 98 - 110 mmol/L [facility] ([facility]) Carbon dioxide CO2), total, Serum/Plasma 21 20 - 32 mmol/L [facility] ([facility]) Calcium, Serum/Plasma 10.2 8.6 - 10.3 mg/dL [facility] ([facility]) Phosphate, Serum/Plasma 2.9 2.1 - 4.3 mg/dL [facility] ([facility]) Albumin, Serum/Plasma 4.2 3.6 - 5.1 g/dL [facility] ([facility]) 02/07/2019 7:50 AM CDT 02/07/2019 7:51 AM CDT Narrative Resulting Agency Comment Performing Organization Information: ?Site ID: [id number] ?Name: [facility] ?Address: [address] [place], [place] [address] [address] ?Director: Khoi Grissom D.O., MPH Leonardo Cuevas MD LAB BLOOD ORDERABLES [facility] ([facility]) documented in this encounter Visit Diagnoses Not on filedocumented in this encounter Care Teams Extruding Machine Operator Relationship Specialty Start Date End Date Ronald Lam DO [address] [place] [address] PCP - General Internal Medicine 08/18/18 documented as of this encounter
--- OUTSIDE RECORDS SUMMARY | 2024-04-20 01:13 | XMS_ITS | Encounter Summary ---
Author Organization [facility] Svetlana utions Address [address] [place] [address] Phone Care Team Providers Care Storage Garage Attendant Name Role Phone Ronald Lam DO Primary Care Provider [phone] Encounter Details Date Type Department Care Team (Late st Contact Info) Description 08/18/2018 10:15 AM CDT Office Visit [facility] Nephrology and Hypertension [address] [place] [address], [address] [place] [address] Leonardo Cuevas MD [address] [facility], [address] [place] [address] Essential (primary) hypertension (Primary Dx); Chronic kidney disease, stage 3 (moderate); Hyperlipidemia, not otherwise specified Social History Tobacco Use Types Packs/Day Years [...] Reading Time Taken Comments Blood Pressure 122/70 08/18/2018 10:32 AM CDT Pulse 120 08/18/2018 10:32 AM CDT Temperature 35.6 ??C (96 ??F) 08/18/2018 10:32 AM CDT Respiratory Rate - - Oxygen Saturation - - Inhaled Oxygen Concentration - - Weight 119 kg (262 lb) 08/18/2018 10:32 AM CDT Height 185.4 cm (6' 1 ) 08/18/2018 10:32 AM CDT Body Mass Index 34.57 08/18/2018 10:32 AM CDT documented in this encounter Progress Notes * Leonardo Cuevas MD - 08/18/2018 10:15 AM CDT Yosef Chapa is a pleasant 72 y.o.male. Here with daughter, Sapphire. Yosef is a very pleasant gentleman who is here to followup for an elevated creatinine. no bloody urine. on the low protein diet. He has a high PSA and so is seeing Dr Moffett who will manage and follow this. No more stents. No cp Patient has hypertension. bp has been good. Gout has been quiescent. Patient has sleep apnea and had a uvulectomy. Past history: sleep apnea, uvulectomy, gout, hypertension, chronic kidney disease, hyperlipidemia. Social history: he does smoke or drink. Family history: father fom natural causes. Father of an [place]. Has no family history of kidney disease. Allergies: NKDA Review of Systems Respiratory: Negative for shortness of breath. Gastrointestinal: Negative for abdominal pain. Genitourinary: Negative for dysuria, frequency and hematuria. Objective BP 122/70 Pulse (!) 120 Temp 96 ??F (35.6 ??C) Ht 6' 1 (1.854 m) Wt 262 lb (119 kg) BMI 34.57 kg/m?? BSA 2.48 m?? Physical Exam Constitutional: He is oriented to person, place, and time. He appears well- developed and well-nourished. No distress. HENT: Head: Normocephalic and atraumatic. Eyes: Conjunctivae are normal. Pupils are equal, round, and reactive to light. Neck: Normal range of motion. No thyromegaly present. Cardiovascular: Normal rate and regular rhythm. Exam reveals no gallop and no friction rub. Pulmonary/Chest: Effort normal and breath sounds normal. He has no rales. Abdominal: Soft. Bowel sounds are normal. There is no tenderness. Musculoskeletal: He exhibits no edema. Lymphadenopathy: He has no cervical adenopathy. Neurological: He is alert and oriented to person, place, and time. Skin: Skin is warm and dry. No rash noted. Psychiatric: He has a normal mood and affect. Recent Labs: Lab Results Component Value Date EGFR 43 (L) 07/28/2018 CREATININE 1.55 (H) 07/28/2018 CREATININEUR 194 07/13/2018 GLUCOSE 113 (H) 07/28/2018 HCT 43.9 07/28/2018 BUN 24 07/28/2018 NA 139 07/28/2018 K 4.2 07/28/2018 CL 103 07/28/2018 CO2 28 07/28/2018 ALBUMIN 4.4 07/28/2018 CA 10.3 07/28/2018 Impression: 06/29/15 Renal Ultrasound normal Yosef has an elevated creatinine. I suspect this is due to his hypertension and possibly occult vascular disease.. Electrophoreses are okay. DANIAL and ESR are okay. he does not have much protein in the urine To preserve renal function: BP is good. PTH is target He is already on losartan. Try to lose weight. consider product delivery specialist or seeing pcp He should avoid large amounts of protein in his diet. His cholesterol is doing well. he had cath/stent x 2. HR is 120 and regular. SVT? I called cardiology nurse. He is having no cp orsob. He will go to their office right down the [place] He is overweight. He should try to lose some weight; consider a product delivery specialist or seeing pcp to get helpwith this. He had the pneumovax and he refuses the flu shot because I talked with people . he will consider it next year We discussed care plan. He has a living will/DPOA. He designates his daughter, Ayleen, as decision maker if patient cannot. Plan same diet except avoid protein as well. same meds. Go see cardiology now. lose weight refuses the flu shot RTC 6 months Assessment/Plan Diagnoses and all orders for this visit: Essential (primary) hypertension Chronic kidney disease, stage 3 (moderate) Hyperlipidemia, not otherwise specified Blood Pressure for this visit is 122/70. Follow up plan to address blood pressure is good. Body mass index is 34.57 kg/m??. Follow up plan to address BMI is too high See above.. Follow up plan to address tobacco use is nonsmoker. documented in this encounter Plan of Treatment Not on file documented as of this encounter Visit Diagnoses Diagnosis Essential (primary) hypertension- Primary Chronic kidney disease, stage 3 (moderate) Hyperlipidemia, not otherwise specified documented in this encounter Care Teams Storage Garage Attendant Relationship Specialty Start Date End Date Ronald Lam DO [address] [place] [id number] PCP - General Internal Medicine 08/18/18 documented as of this encounter
--- OUTSIDE RECORDS SUMMARY | 2024-04-20 01:13 | XMS_ITS | Encounter Summary ---
Author Organization [facility] Svetlana utiiliana Address [address] [place] [address] Phone Care Team Providers Care Grain Blender Name Role Phone Unavailable Primary Care Provider Unavailabl e Encounter Details Date Type Department Care Team (Late st Contact Info) Description 11/24/2016 Legacy Encounter - Labs HISTORICAL CONVERSION CENTRAL [address] [place], [place] [id number], [place] [address] Leonardo Cuevas MD [address] [facility], [address] [place] [address] Social History Tobacco Use Types Packs/Day Years [...] Associated Diagnosis Comments MANUALLY ENTERED ORDER Routine 11/24/2016 12:00 AM CDT documented in this encounter Results * (ABNORMAL) Manually Entered Order (11/24/2016 12:00 AM CDT) Creatinine 1.9(H) 0.5 - 1.3 EXTERNAL LAB Estimated Glomerular Filtration Rate (eGFR) 35(L) 60 - 100 EXTERNAL LAB Protein/Creatinine, Urine 40 EXTERNAL LAB Cholesterol, LDL, Serum/Plasma 94 0 - 130 EXTERNAL LAB Alanine Aminotransferase (ALT), Serum/Plasma 27 12 - 78 EXTERNAL LAB PTH, INTACT 72 14 - 72 EXTERNAL LAB Vitamin D (25-OH) 58 30 - 100 EXTERNAL LAB LDL 93 0 - 130 EXTERNAL LAB Cholesterol, HDL 27 10 - 50 EXTERNAL LAB TRIGLYCERIDES 225(H) 0 - 150 EXTERNAL LAB 11/24/2016 Leonardo Cuevas MD LAB BLOOD ORDERABLES EXTERNAL LAB documented in this encounter Visit Diagnoses Not on filedocumented in this encounter
--- OUTSIDE RECORDS SUMMARY | 2024-04-20 01:13 | XMS_ITS | Encounter Summary ---
Author Organization [facility] Svetlana utiiliana Address [address] [place] [address] Phone Care Team Providers Care Motorcycle Builder Name Role Phone Unavailable Primary Care Provider Unavailabl e Encounter Details Date Type Department Care Team (Late st Contact Info) Description 07/28/2018 Orders Only [facility] Nephrology and Hypertension 1034 [facility], [address] [address] Leonardo Cuevas MD 1034 [facility], SUITE [facility] [place] [address] Social History Tobacco Use Types Packs/Day Years Used Date Smoking Tobacco: Never Sex and Gender Information Value Date Recorded Sex Assigned at Not on file Gender Identity Not on file Sexual Orientation Not on file documented as of this encounter Plan of Treatment Not on file documented as of this encounter Procedures Procedure Name Priority Date/Time Associated Diagnosis Comments CBC (INCLUDES PLATELETS / NO DIFFERENTIAL) Routine 07/28/2018 9:42 AM CDT RENAL FUNCTION PANEL (RFP) Routine 07/28/2018 9:42 AM CDT documented in this encounter Results * CBC (includes Platelet/No Differential) (07/28/2018 9:42 AM CDT) Leukocytes, Blood 5.6 3.8 - 10.8 Thousand/u L [facility] ([facility]) Erythrocytes (RBC) 4.92 4.20 - 5.80 Million/uL [facility] ([facility]) Hemoglobin (HGB) 15.0 13.2 - 17.1 g/dL [facility] ([facility]) Hematocrit (HCT) 43.9 38.5 - 50.0 % [facility] - [facility] ([facility]) MCV 89.2 80.0 - 100.0 fL [facility] - [facility] ([facility]) MCH 30.5 27.0 - 33.0 pg [facility] ([facility]) MCHC 34.2 32.0 - 36.0 g/dL [facility] ([facility]) Erythrocyte Distribution Width (RDW) 13.4 11.0 - 15.0 % [facility] (ST) Platelets, Blood 175 140 - 400 Thousand/u L [facility] ([facility]) Platelet mean volume, Blood 11.4 7.5 - 12.5 fL [facility] ([facility]) 07/28/2018 9:42 AM CDT 07/28/2018 9:43 AM CDT Narrative [facility] ([facility]) - 07/29/2018 1:44 AM CDT AN UPDATE OR CORRECTION HAS BEEN MADE TO NAME Resulting Agency Comment Performing Organization Information: ?Site ID: [id number] ?Name: [facility] ?Address: [address] [place] [address] [place] [address] ?Director: Khoi Grissom D.O., MPH Leonardo Cuevas MD LAB BLOOD ORDERABLES [facility] ([facility]) * (ABNORMAL) Renal Function Panel (07/28/2018 9:42 AM CDT) Glucose, Serum/Plasma 113(H) 65 - 99 mg/dL [facility] (ST) Comment: ? Fasting reference interval For someone without known diabetes, a glucose value between 100 and 125 mg/dL is consistent with prediabetes and should be confirmed with a follow-up test. Urea nitrogen, Serum/Plasma (BUN) 24 7 - 25 mg/dL [facility] ([facility]) Creatinine, Serum/Plasma 1.55(H) 0.70 - 1.18 mg/dL [facility] ([facility]) Comment: For patients >49 years of age, the reference limit for Creatinine is approximately 13% higher for people identified as -Citizen Of [place]. eGFR, non 43(L) > OR = 60 mL/min/1. 73m2 [facility] ([facility]) eGFR, 50(L) > OR = 60 mL/min/1. 73m2 [facility] ([facility]) Urea nitrogen/Creatinin e, Serum/Plasma 15 6 - 22 (calc) [facility] ([facility]) Sodium, Serum/Plasma 139 135 - 146 mmol/L [facility] ([facility]) Potassium, Serum/Plasma 4.2 3.5 - 5.3 mmol/L [facility] ([facility]) Chloride, Serum/Plasma 103 98 - 110 mmol/L [facility] ([facility]) Carbon dioxide CO2), total, Serum/Plasma 28 20 - 32 mmol/L [facility] ([facility]) Calcium, Serum/Plasma 10.3 8.6 - 10.3 mg/dL [facility] ([facility]) Phosphate, Serum/Plasma 2.8 2.1 - 4.3 mg/dL [facility] ([facility]) Albumin, Serum/Plasma 4.4 3.6 - 5.1 g/dL [facility] (ST) 07/28/2018 9:42 AM CDT 07/28/2018 9:43 AM CDT Narrative [facility] (ST) - 07/29/2018 1:44 AM CDT AN UPDATE OR CORRECTION HAS BEEN MADE TO NAME Resulting Agency Comment Performing Organization Information: ?Site ID: [place] ?Name: [facility] ?Address: [facility] [place] [address] ?Director: Khoi Grissom D.O., MPH Leonardo Cuevas MD LAB BLOOD ORDERABLES [facility] ([facility]) documented in this encounter Visit Diagnoses Not on filedocumented in this encounter
--- OUTSIDE RECORDS SUMMARY | 2024-04-20 01:13 | XMS_ITS | Encounter Summary ---
Author Organization [facility] Svetlana utions Address [address] [place] [address] Phone Care Team Providers Care Podiatric Medicine Doctor Name Role Phone Ronald Lam DO Primary Care Provider [phone] Encounter Details Date Type Department Care Team (Late st Contact Info) Description 01/19/2020 9:15 AM CDT Office Visit [facility] Nephrology and Hypertension [address] [place] [address], [address] [place] [address] Leonardo Cuevas MD [address] [facility], [address] [place] [address] Essential (primary) hypertension (Primary Dx); Chronic kidney disease, stage 3 (moderate) (CMS-HCC); Hyperlipidemia, not otherwise specified Social History Tobacco [...] Sign Reading Time Taken Comments Blood Pressure 124/84 01/19/2020 9:25 AM CDT Pulse 60 01/19/2020 9:25 AM CDT Temperature 36.1 ??C (97 ??F) 01/19/2020 9:25 AM CDT Respiratory Rate - - Oxygen Saturation - - Inhaled Oxygen Concentration - - Weight 114 kg (251 lb) 01/19/2020 9:25 AM CDT Height 185.4 cm (6' 1 ) 01/19/2020 9:25 AM CDT Body Mass Index 33.12 01/19/2020 9:25 AM CDT documented in this encounter Progress Notes * Leonardo Cuevas MD - 01/19/2020 9:15 AM CDT Yosef Chapa is a pleasant 74 y.o.male. Here with daughter, Sapphire. Yosef is a very pleasant gentleman who is here to followup for an elevated creatinine. no bloody urine. on the low protein diet. He developed afib and is now on eliquis. Rate is controlled. He has a high PSA and so is seeing Dr Moffett who diagnosed prostate cancer. He is getting a second opinion from Dr Hendrcikson in [place]. He had MRI kidneys which was okay No more stents. No cp Patient has hypertension. bp is doing okay Gout has been quiescent. Patient has sleep apnea and had a uvulectomy. Past history: sleep apnea, uvulectomy, gout, hypertension, chronic kidney disease, hyperlipidemia. Social history: he does smoke or drink. Family history: father fom natural causes. Father of an PA. Has no family history of kidney disease. Allergies: NKDA ROS Constitutional: Negative except as above Skin: Negative except as above Pulmonary: Negative except as above Urologic: Negative except as above BP 124/84 Pulse 60 Temp 97 ??F (36.1 ??C) Ht 6' 1 (1.854 m) Wt 251 lb (114 kg) BMI 33.12kg/m?? BSA 2.42 m?? WDWN male in NAD Skin No rash or sq nodules Head NCAT Neck No nodes, No TMG Lungs Clear t Cor RRR no rub or gallop Abd BS+ nontender and soft. Ext tiny edema, Psyche normal not depressed or anxious Recent Labs: 02/07/19 Upro 195 Lab Results Component Value Date BUN 21 01/12/2020 CREATININE 1.47 (H) 01/12/2020 EGFRAA 53 (L) 01/12/2020 EGFRAA 51 (L) 02/07/2019 EGFRAA 50 (L) 07/28/2018 EGFR 46 (L) 01/12/2020 EGFR 44 (L) 02/07/2019 EGFR 43 (L) 07/28/2018 PROTCREATUR 405 (H) 01/12/2020 PROTCREATUR 0.405 (H) 01/12/2020 PROTCREATUR 195 (H) 02/07/2019 NA 138 01/12/2020 K 4.1 01/12/2020 CL 101 01/12/2020 CO2 27 01/12/2020 CA 10.0 01/12/2020 PHOSPHATE 3.1 01/12/2020 ALBUMIN 4.0 01/12/2020 GLUCOSE 110 (H) 01/12/2020 PTH 60 01/12/2020 VITD 58 05/28/2018 LDL 103 (H) 01/12/2020 HDL 33 (L) 01/12/2020 TRIG 182 (H) 01/12/2020 ALT 19 01/12/2020 WBC 5.1 01/12/2020 HGB 15.8 01/12/2020 PLT 188 01/12/2020 Imaging 06/29/15 Renal Ultrasound normal Impression: Yosef has an elevated creatinine. I suspect this is due to his hypertension and possibly occult vascular disease.. Electrophoreses are okay. DANIAL and ESR are okay. he does not have much protein in the urine To preserve renal function: BP is good. PTH is target He is already on losartan. BMI is too high. Try to lose weight. consider doughnut dough mixer or seeing pcp He should avoid large amounts of protein in his diet. His cholesterol is doing well. On atorvastatin 80 per cardiology NO NSAIDs Stay hydrated. he had cath/stent x 2. HR is good now. He is overweight. He should try to lose some weight; consider a doughnut dough mixer or seeing pcp to get helpwith this. He had the pneumovax and he will get the flu shot today We discussed care plan. He has a living will/DPOA. He designates his daughter, Ayleen, as decision maker if patient cannot. Plan same diet except avoid protein as well. same meds. lose weight refuses the flu shot RTC 6 months Diagnoses and all orders for this visit: Essential (primary) hypertension Chronic kidney disease, stage 3 (moderate) ([facility]-HCC) Hyperlipidemia, not otherwise specified Body mass index is 33.12 kg/m??. Follow up plan to address BMI is . too high. See above Assessment/Plan Diagnoses and all orders for this visit: Essential (primary) hypertension Chronic kidney disease, stage 3 (moderate) Hyperlipidemia, not otherwise specified Blood Pressure for this visit is 124/84. Follow up plan to address blood pressure is good. Body mass index is 33.12 kg/m??. Follow up plan to address BMI is too high See above.. Follow up plan to address tobacco use is nonsmoker. documented in this encounter Plan of Treatment Scheduled Orders Name Type Priority Associated Diagnoses Orde r Schedule Vitamin D, 25-Hydroxy, Serum Lab Routine Chronic kidney disease, stage 3 (moderate) ([facility]-HCC) 1 Occurrences starting 01/19/2020 until 01/18/2021 Renal Function Panel (RFP) Lab Routine Chronic kidney disease, stage 3 (moderate) ([facility]-HCC) 1 Occurrences starting 01/19/2020 until 01/18/2021 Total Protein w/ Creatinine, Urine, Random Lab Routine Chronic kidney disease, stage 3 (moderate) ([facility]-HCC) 1 Occurrences starting 01/19/2020 until 01/18/2021 documented as of this encounter Visit Diagnoses Diagnosis Essential (primary) hypertension- Primary Chronic kidney disease, stage 3 (moderate) Hyperlipidemia, not otherwise specified documented in this encounter Care Teams Podiatric Medicine Doctor Relationship Specialty Start Date End Date Ronald Lam DO [address] [place] [address] PCP - General Internal Medicine 08/18/18 documented as of this encounter
--- OUTSIDE RECORDS SUMMARY | 2024-04-20 01:13 | XMS_ITS | Encounter Summary ---
Author Organization [facility] Svetlana utiiliana Address [address] [place] [address] Phone Care Team Providers Care Interior Design Instructor Name Role Phone Unavailable Primary Care Provider Unavailabl e Encounter Details Date Type Department Care Team (Late st Contact Info) Description 05/28/2018 [facility] Encounter - Labs HISTORICAL CONVERSION CENTRAL [address] [place], [place] [id number], [place] [address] Leonardo Cuevas MD [facility], SUITE [facility] [place] [address] Social History Tobacco Use Types Packs/Day Years [...] Associated Diagnosis Comments MANUALLY ENTERED ORDER Routine 05/28/2018 12:00 AM DIRECTOR MARKETING ANALYTICS documented in this encounter Results * (ABNORMAL) Manually Entered Order (05/28/2018 12:00 AM DIRECTOR MARKETING ANALYTICS) Creatinine 1.8(H) 0.5 - 1.3 EXTERNAL LAB (NON-INTERFACE D) Estimated Glomerular Filtration Rate (eGFR) 37(L) 60 - 100 EXTERNAL LAB (NON-INTERFACE D) Protein/Creatin ine, Urine 40 EXTERNAL LAB (NON-INTERFACE D) PTH, INTACT 98(H) 14 - 72 EXTERNAL LAB (NON-INTERFACE D) Vitamin D (25-OH) 58 30 - 100 EXTERNAL LAB (NON-INTERFACE D) HEMOGLOBIN 15.4 12 - 16 EXTERNAL LAB (NON-INTERFACE D) CALCIUM 10.4 EXTERNAL L AB (NON-INTERFACE D) 05/28/2018 Leonardo Cuevas MD LAB BLOOD ORDERABLES EXTERNAL LAB (NON-INTERFACED) documented in this encounter Visit Diagnoses Not on filedocumented in this encounter
--- OUTSIDE RECORDS SUMMARY | 2024-04-20 01:13 | XMS_ITS | Encounter Summary ---
Author Organization [facility] Physician Svetlana utiiliana Address [address] [place] [address] Phone Care Team Providers Care Remote Mortgage Underwriter Name Role Phone Unavailable Primary Care Provider Unavailabl e Encounter Details Date Type Department Care Team (Late st Contact Info) Description 11/27/2017 [facility] Encounter - Labs H[facility]ORICAL CONVERSION [facility]ENTRAL [address] [place], [place] [id number], [place] [address] Leonardo Cuevas MD 1034 [address] [facility], SUITE [facility] [place] [address] Social History Tobacco Use Types Packs/Day Years [...] Associated Diagnosis Comments MANUALLY ENTERED ORDER Routine 11/27/2017 12:00 AM CDT documented in this encounter Results * (ABNORMAL) Manually Entered Order (11/27/2017 12:00 AM CDT) Creatinine 1.6(H) 0.5 - 1.3 EXTERNAL LAB (NON-INTERFAC ED) Estimated Glomerular Filtration Rate (eGFR) 43(L) 60 - 100 EXTERNAL LAB (NON-INTERFAC ED) Protein/Creatinine , Urine 110 EXTERNAL LAB (NON-INTERFAC ED) PTH, INTACT 88(H) 14 - 72 EXTERNAL LAB (NON-INTERFAC ED) Vitamin D (25-OH) 49 30 - 100 EX TERNAL LAB (NON-INTERFAC ED) LDL 86 0 - 130 EXTERNAL L AB (NON-INTERFAC ED) Cholesterol, HDL 30 10 - 50 EXT ERNAL LAB (NON-INTERFAC ED) TRIGLYCERIDES 252(H) 0 - 150 SALESPERSON MEATS AL LAB (NON-INTERFAC ED) Uric Acid (Urate) 5.2 EX TERNAL LAB (NON-INTERFAC ED) 11/27/2017 Leonardo Cuevas MD LAB BLOOD ORDERABLES EXTERNAL LAB (NON-INTERFACED) documented in this encounter Visit Diagnoses Not on filedocumented in this encounter
--- OUTSIDE RECORDS SUMMARY | 2024-04-20 01:13 | XMS_ITS | Clinical Summary ---
Author Organization [facility] Svetlana utiiliana Address [address] [place] [address] Phone Care Team Providers Care Harmonic Analyst Name Role Phone Ronald Lam DO Primary Care Provider [phone] Allergies No known active allergies Medications Medication Sig Dispensed Refills Start Date End Date Status allopurinol (ZYLOPRIM) 300 MG tablet 1 daily 06/17/2015 Active Multiple Vitamin (MULTIVITAMIN) capsule 1 daily 06/17/2015 Ac tive calcitriol (ROCALTROL) 0.25 MCG capsule TAKE ONE CAPSULE BY MOUTH MON.,WED. AND FRI. 5 02/21/2016 Active losartan-hydroCHLOROth iazide (HYZAAR) 100-12.5 MG per tablet 1 tablet orally daily 4 07/23/2016 Active carvedilol (COREG) 25 MG tablet 1 daily 06/17/2015 Active temazepam (RESTORIL) 7.5 MG capsule qhs prn 0 07/13/2018 Active atorvastatin (LIPITOR) 80 MG tablet Take 80 mg by mouth daily 09/01/2018 Active clopidogrel (PLAVIX) 75 MG tablet Take 75 mg by mouth daily 01/20/2019 Active dilTIAZem CD (CARDIZEM CD) 120 MG 24 hr capsule Take 120 mg by mouth daily 08/19/2018 Active apixaban (ELIQUIS) 5 MG tablet Take 5 mg by mouth 2 times daily 10/21/2018 Active Active Problems Problem Noted Date Diagnosed Date Atrial fibrillation 02/23/2020 Stage 3b chronic kidney disease 06/21/2015 Essential (primary) hypertension 06/21/2015 Hyperlipidemia 06/21/2015 Gout 06/21/2015 Disease type AND/OR category unknown 11/15/2013 Overview (02/12/2019): Overview: STATUS-POST PTCA Coronary arteriosclerosis in [place] artery 09/17 Overview (02/12/2019): Overview: CRNRY ATHRSCL NATVE VSSL Immunizations Name Administration Dates Next Due Pneumococcal Conjugate 01/02/2018 Family History Medical History Relation Comments Heart disease Father Malignant neoplastic disease Father Kidney disease Neg Hx Kidney stone Neg Hx Relation Status Comments Father Social History Tobacco Use Types Packs/Day Years [...] Mass Index 33.12 01/19/2020 9:25 AM CDT Plan of Treatment Health Maintenance Due Date Last Done Comments Pneumococcal PPSV23/PCV13 65 + Years / Low and Medium Risk (1 of 4 - PCV) 12/03/2008 Influenza Vaccine (#1) 2024 Care Teams Harmonic Analyst Relationship Specialty Start Date End Date Ronald Lam DO [address] [place] [id number] PCP - General Internal Medicine 08/18/18
--- OUTSIDE RECORDS SUMMARY | 2024-04-20 01:13 | XMS_ITS | Encounter Summary ---
Author Organization [facility] Svetlana utions Address [address] [place] [address] Phone Care Team Providers Care Database Security Administrator Name Role Phone Ronald Lam DO Primary Care Provider [phone] Encounter Details Date Type Department Care Team (Late st Contact Info) Description 02/16/2019 9:45 AM CDT Office Visit [facility] Nephrology and Hypertension [address] [place] [address], [address] [place] [address] Leonardo Cuevas MD [address] [facility], [address] [place] [address] Essential (primary) hypertension (Primary Dx); Chronic kidney [...] Sign Reading Time Taken Comments Blood Pressure 118/82 02/16/2019 9:54 AM CDT Pulse 60 02/16/2019 9:54 AM CDT Temperature 37 ??C (98.6 ??F) 02/16/2019 9:54 AM CDT Respiratory Rate - - Oxygen Saturation - - Inhaled Oxygen Concentration - - Weight 117 kg (258 lb) 02/16/2019 9:54 AM CDT Height 185.4 cm (6' 1 ) 02/16/2019 9:54 AM CDT Body Mass Index 34.04 02/16/2019 9:54 AM CDT documented in this encounter Progress Notes * Leonardo Cuevas MD - 02/16/2019 9:45 AM CDT Yosef Chapa is a pleasant 73 y.o.male. Here with daughter, Sapphire. Yosef is [...] No cp Patient has hypertension. bp is fine. Gout has been quiescent. Patient has sleep apnea and had a uvulectomy. Past history: sleep apnea, uvulectomy, gout, hypertension, chronic kidney disease, hyperlipidemia. Social history: he does smoke or drink. Family history: father fom natural causes. Father of an MT. Has no family history of kidney disease. Allergies: NKDA ROS Constitutional: Negative except as above Skin: Negative except as above Pulmonary: Negative except as above Urologic: Negative except as above BP 118/82 Pulse 60 Temp 98.6 ??F (37 ??C) Ht 6' 1 (1.854 m) Wt 258 lb (117 kg) BMI 34.04kg/m?? BSA 2.45 m?? WDWN male in NAD Skin No rash Head NCAT Neck No nodes, No TMG Lungs Clear to Auscultation Cor RRR no rub or gallop Abd BS+ nontender and soft. Ext No edema, Psyche normal not depressed or anxious Recent Labs: 02/07/19 Upro 195 Lab Results Component Value Date EGFR 44 (L) 02/07/2019 CREATININE 1.53 (H) 02/07/2019 CREATININEUR 159 02/07/2019 LDL 86 11/27/2017 HDL 30 11/27/2017 GLUCOSE 106 (H) 02/07/2019 PTH 98 (H) 05/28/2018 HCT 43.9 07/28/2018 BUN 21 02/07/2019 NA 141 02/07/2019 K 3.9 02/07/2019 CL 107 02/07/2019 CO2 21 02/07/2019 ALBUMIN 4.2 02/07/2019 CA 10.2 02/07/2019 Impression: 06/29/15 Renal Ultrasound normal Yosef has [...] too high. Try to lose weight. consider dance choreographer or seeing pcp He should avoid large amounts of protein in his diet. His cholesterol is doing well. NO NSAIDs Stay hydrated. he had cath/stent x 2. HR is good now. He is overweight. He should try to lose some weight; consider a dance choreographer or seeing pcp to get helpwith this. [...] specified Blood Pressure for this visit is 118/82. Follow up plan to address blood pressure is good. Body mass index is 34.04 kg/m??. Follow up plan to address BMI is too high See above.. Follow up plan to address tobacco use is nonsmoker. documented in this encounter Plan of Treatment Scheduled Orders Name Type Priority Associated Diagnoses Orde r Schedule Vitamin D, 25-Hydroxy, Serum Lab Routine Chronic kidney disease, stage 3 (moderate) (CMS-HCC) 1 Occurrences starting 02/16/2019 until 02/17/2020 documented as of this encounter Procedures Procedure Name Priority Date/Time Associated Diagnosis Comments TOTAL PROTEIN W/ CREATININE, URINE, RANDOM Routine 01/12/2020 7:13 AM CDT Chronic kidney disease, stage 3 (moderate) (CMS-HCC) CBC (INCLUDES DIFFERENTIAL/PLATEL ETS) Routine 01/12/2020 7:13 AM CDT Chronic kidney disease, stage 3 (moderate) (CMS-HCC) RENAL FUNCTION PANEL (RFP) Routine 01/12/2020 7:13 AM CDT Chronic kidney disease, stage 3 (moderate) (CMS-HCC) ALT (SGPT), SERUM Routine 01/12/2020 7:1 3 AM CDT Chronic kidney disease, stage 3 (moderate) (CMS-HCC) Hyperlipidemia, not otherwise specified LIPID PANEL Routine 01/12/2020 7:13 AM CDT Chronic kidney disease, stage 3 (moderate) (CMS-HCC) Hyperlipidemia, not otherwise specified PTH INTACT W/O CALCIUM, SERUM Routine 01/12/2020 7:13 AM CDT Chronic kidney disease, stage 3 (moderate) (CMS-HCC) documented in this encounter Results * (ABNORMAL) Total Protein w/ Creatinine, Urine, Random (01/12/2020 7:13 AM CDT) Creatinine, Urine 148 20 - 320 mg/dL [facility]) Protein/Creati nine, Urine 405(H) 22 - 128 mg/g creat [facility]) Protein/Creati nine, Urine 0.405(H) 0.022 - 0.128 mg/mg creat [facility]) Protein, Urine 60(H) 5 - 25 mg/dL [facility]) 01/12/2020 7:13 AM CDT 01/12/2020 7:20 AM CDT Narrative [facility] ([facility]) - 01/13/2020 12:56 PM CDT FASTING:YES FASTING: YES Resulting Agency Comment Performing Organization Information: ?Site ID: [place] ?Name: [facility] ?Address: [address] [address] ?Director: Khoi Girssom D.O., MPH Leonardo Cuevas MD LAB URINE ORDERABLES [facility] ([facility]) * (ABNORMAL) Renal Function Panel (RFP) (01/12/2020 7:13 AM CDT) Glucose, Serum/Plasma 110(H) 65 - 99 mg/dL [facility]) Comment: ? Fasting reference interval For someone without known diabetes, a glucose value between 100 and 125 mg/dL is consistent with prediabetes and should be confirmed with a follow-up test. Urea nitrogen, Serum/Plasma (BUN) 21 7 - 25 mg/dL [facility] ([facility]) Creatinine, Serum/Plasma 1.47(H) 0.70 - 1.18 mg/dL [facility] ([facility]) Comment: For patients >49 years of age, the reference limit for Creatinine is approximately 13% higher for people identified as -Libyan. eGFR, non 46(L) > OR = 60 mL/min/1. 73m2 [facility] ([facility]) eGFR, 53(L) > OR = 60 mL/min/1. 73m2 [facility] (L) Urea nitrogen/Creatinin e, Serum/Plasma 14 6 - 22 (calc) [facility] ([facility]) Sodium, Serum/Plasma 138 135 - 146 mmol/L [facility] ([facility]) Potassium, Serum/Plasma 4.1 3.5 - 5.3 mmol/L [facility] ([facility]) Chloride, Serum/Plasma 101 98 - 110 mmol/L [facility]) Carbon dioxide CO2), total, Serum/Plasma 27 20 - 32 mmol/L [facility] ([facility]) Calcium, Serum/Plasma 10.0 8.6 - 10.3 mg/dL [facility] ([facility]) Phosphate, Serum/Plasma 3.1 2.1 - 4.3 mg/dL [facility] ([facility]) Albumin, Serum/Plasma 4.0 3.6 - 5.1 g/dL [facility] ([facility]) Blood 01/12/2020 7:13 AM CDT 01/12/2020 7:20 AM CDT Narrative [facility] ([facility]) - 01/13/2020 12:56 PM CDT FASTING:YES FASTING: YES Resulting Agency Comment Performing Organization Information: ?Site ID: [id number] ?Name: [facility] ?Address: [address] [address] ?Director: Khoi Grissom D.O., MPH Leonardo Cuevas MD LAB BLOOD ORDERABLES [facility] ([facility]) * PTH Intact w/o Calcium, Serum (01/12/2020 7:13 AM CDT) PTH, Intact, Serum/Plasma 60 14 - 64 pg/mL [facility] ([facility]) Comment: Interpretive Guide ?Intact PTH ? Calcium ? ------- Normal Parathyroid ?Normal ? Normal Hypoparathyroidism ?Low or Low Normal ?Low Hyperparathyroidism ?? Primary ?Normal or High ? High ?? Secondary ?High ? Normal or Low ?? Tertiary ? High ? High Non-Parathyroid ?? Hypercalcemia ?Low or Low Normal ?High Blood 01/12/2020 7:13 AM CDT 01/12/2020 7:20 AM CDT Narrative [facility] ([facility]) - 01/13/2020 12:56 PM CDT FASTING:YES FASTING: YES Resulting Agency Comment Performing Organization Information: ?Site ID: [place] ?Name: [facility] ?Address: [facility] [place] [address] ?Director: Khoi Grissom D.O., MPH Leonardo Cuevas MD LAB BLOOD ORDERABLES [facility] ([facility]) * (ABNORMAL) Lipid Panel (01/12/2020 7:13 AM CDT) Cholesterol, Serum/Plasma 166 <200 mg/dL [facility] ([facility]) Cholesterol, HDL, Serum/Plasma 33(L) > OR = 40 mg/dL [facility] ([facility]) Triglyceride, Serum/Plasma 182(H) <150 mg/dL [facility]) Cholesterol, LDL, Serum/Plasma 103(H) mg/dL (calc) [facility] ([facility]) Comment: Reference range: <100 Desirable range <100 mg/dL for primary prevention; ?? <70 mg/dL for patients with CHD or diabetic patients with > or = 2 CHD risk factors. LDL-C is now calculated using the Dipesh-Mekhi calculation, which is a validated novel method providing better accuracy than the Friedewald equation in the estimation of LDL-C. Dipesh SS et al. MICHAEL. 2013;310(19): 0390-3118 (http://education.Dahu.Great Technology/faq/MDR379) Cholesterol, total/Cholestero l, HDL, Serum/Plasma 5.0(H) <5.0 (calc) [facility] ([facility]) Cholesterol non HDL, Serum/Plasma 133(H) <130 mg/dL (calc) [facility] ([facility]) Comment: For patients with diabetes plus 1 major ASCVD risk factor, treating to a non-HDL-C goal of <100 mg/dL (LDL-C of <70 mg/dL) is considered a therapeutic option. Blood 01/12/2020 7:13 AM CDT 01/12/2020 7:20 AM CDT Narrative [facility] ([facility]) - 01/13/2020 12:56 PM CDT FASTING:YES FASTING: YES Resulting Agency Comment Performing Organization Information: ?Site ID: [place] ?Name: [facility] ?Address: [address] [address] ?Director: Khoi Grissom D.O., MPH Leonardo Cuevas MD LAB BLOOD ORDERABLES [facility] ([facility]) * CBC (includes Differential/Platelets) (01/12/2020 7:13 AM CDT) Leukocytes, Blood 5.1 3.8 - 10.8 Thousand/u L [facility] ([facility]) Erythrocytes (RBC) 5.27 4.20 - 5.80 Million/uL [facility] ([facility]) Hemoglobin (HGB) 15.8 13.2 - 17.1 g/dL [facility] ([facility]) Hematocrit (HCT) 47.1 38.5 - 50.0 % [facility] ([facility]) MCV 89.4 80.0 - 100.0 fL [facility] ([facility]) MCH 30.0 27.0 - 33.[address] [facility] ([facility]) MCHC 33.5 32.0 - 36.0 g/dL [facility] ([facility]) Erythrocyte Distribution Width (RDW) 13.2 11.0 - 15.0 % [facility] ([facility]) Platelets, Blood 188 140 - 400 Thousand/u L [facility] ([facility]) Platelet mean volume, Blood 10.6 7.5 - 12.[address] [facility] ([facility]) Neutrophils, Blood 3,198 1,500 - 7,800 cells/uL [facility] ([facility]) Lymphocytes, Blood 1,153 850 - 3,900 cells/uL [facility] ([facility]) Monocytes, Blood 449 200 - 950 cells/uL [facility] ([facility]) Eosinophils, Blood 240 15 - 500 cells/uL [facility]) Basophils, Blood 61 0 - 200 cells/uL [facility]) Neutrophils/100 leukocytes, Blood 62.7 % [facility]) Lymphocytes/100 leukocytes, Blood 22.6 % [facility]) Monocytes/100 leukocytes, Blood 8.8 % [facility]) Eosinophils/100 leukocytes, Blood 4.7 % [facility]) Basophils/100 leukocytes, Blood 1.2 % [facility]) Blood 01/12/2020 7:13 AM CDT 01/12/2020 7:20 AM CDT Narrative [facility] ([facility]) - 01/13/2020 12:56 PM CDT FASTING:YES FASTING: YES Resulting Agency Comment Performing Organization Information: ?Site ID: [id number] ?Name: [facility] ?Address: [address] [place] [address] [address] [address] ?Director: Khoi Grissom D.O., MPH Leonardo Cuevas MD LAB BLOOD ORDERABLES [facility] ([facility]) * ALT (SGPT), Serum (01/12/2020 7:13 AM CDT) Pathologist [facility] Alanine Aminotransferase (ALT), Serum/Plasma 19 9 - 46 U/L [facility]) Blood 01/12/2020 7:13 AM CDT 01/12/2020 7:20 AM CDT Narrative [facility] ([facility]) - 01/13/2020 12:56 PM CDT FASTING:YES FASTING: YES Resulting Agency Comment Performing Organization Information: ?Site ID: [place] ?Name: [facility] ?Address: [address] [place] [address] ?Director: Khoi Grissom D.O., MPH Leonardo Cuevas MD LAB BLOOD ORDERABLES [facility]) documented in this encounter Visit Diagnoses Diagnosis Essential (primary) hypertension- Primary Chronic kidney disease, stage 3 (moderate) Hyperlipidemia, not otherwise specified documented in this encounter Care Teams Database Security Administrator Relationship Specialty Start Date End Date Ronald Lam DO [address] [place] [address] PCP - General Internal Medicine 08/18/18 documented as of this encounter
--- OUTSIDE RECORDS SUMMARY | 2024-04-20 01:13 | XMS_ITS | Encounter Summary ---
Author Organization [facility] Svetlana utions Address [address] [place] [address] Phone Care Team Providers Care Business Executive Name Role Phone Ronald Lam Primary Care Provider [phone] Encounter Details Date Type Department Care Team (Late st Contact Info) Description 08/02/2020 Telephone [facility] Nephrology and Hypertension [address] [facility], [address] [place] [address] Debi Cuevas MA Social History Tobacco Use Types Packs/Day Years [...] encounter Miscellaneous Notes * Telephone Encounter - Debi Cuevas MA - 08/02/2020 10:08 AM CDT Pt's daughter called to thank you for all past care for her father. He recently had open heart surgery and has picked new drs at [facility]. The new PCP, Dr. Emmanuel Broussard, has told pt he can followhis kidneys so they will not return to you at this time. documented in this encounter Plan of Treatment Not on file documented as of this encounter Visit Diagnoses Not on filedocumented in this encounter Care Teams Business Executive Relationship Specialty Start Date End Date Ronald Lam DO [address] [place] [id number] PCP - General Internal Medicine 08/18/18 documented as of this encounter
--- OUTSIDE RECORDS SUMMARY | 2024-04-20 01:13 | XMS_ITS | Encounter Summary ---
Author Organization [facility] Svetlana utiiliana Address [address] [place] [address] Phone Care Team Providers Care Stummel Selector Name Role Phone Ronald Lam DO Primary Care Provider [phone] Encounter Details Date Type Department Care Team (Late st Contact Info) Description 05/14/2020 Telephone [facility] Nephrology and Hypertension [address] [facility], [address] [place] [address] Leonardo Cuevas MD [address] [facility], [address] [place] [address] Social History Tobacco Use Types Packs/Day Years [...] encounter Miscellaneous Notes * Telephone Encounter - Cornelia Hale - 05/14/2020 4:05 PM CST Spoke w/ pt's daughter - wanted HEP to know that pt was admitted in [place] on Sat with Afib, dehydration and kidney failure. Also wanted to make sure Hep knew that pt had his prostate removed back in Nov Thank you documented in this encounter Plan of Treatment Not on file documented as of this encounter Visit Diagnoses Not on filedocumented in this encounter Care Teams Stummel Selector Relationship Specialty Start Date End Date Ronald Lam DO [address] [place] [address] PCP - General Internal Medicine 08/18/18 documented as of this encounter
== END 2024-04-16 09:10 | disposition home or self-care (01) ==
PROVIDERS: Visit Provider Internal Medicine Nephrology
DX: E21.1 Secondary hyperparathyroidism, not elsewhere classified (principal); N18.32 Chronic kidney disease, stage 3b
CPT/HCPCS: 36415; 80069; 82306; 82570; 83970; 84156; 85027

== ENCOUNTER 2024-05-05 07:17 | Outpatient (CLI) | payer MEDICARE, SELFPAY ==
[2024-05-05 08:11] LABS: Anion Gap 6 mmol/L (4-12); Blood Urea Nitrogen 21 mg/dL (9-20); Calcium 9.2 mg/dL (8.4-10.2); Carbon Dioxide 21 mmol/L (22-30); Chloride 111 mmol/L (98-107); Estimated Glomerular Filt Rate 24; Glucose 105 mg/dL (65-110); Sodium 138 mmol/L (137-145)
== END 2024-05-05 07:18 | disposition home or self-care (01) ==
PROVIDERS: PCP Internal Medicine Nephrology; Visit Provider Internal Medicine Nephrology
DX: N18.32 Chronic kidney disease, stage 3b (principal)
CPT/HCPCS: 36415; 80048

== ENCOUNTER 2024-06-13 13:56 | Outpatient (CLI) | payer MEDICARE, SELFPAY ==
--- NOTE | ~2024-06-13 | US_ITS ---
Renal-Bladder ultrasound Clinical History: Chronic kidney disease Technique: Real-time sonographic imaging of the kidneys and urinary bladder was performed. Findings: The right kidney measures 15.1 cm in length and the left kidney measures 14.5 cm. There is no hydronephrosis or renal calculus identified. Renal cortical echogenicity is within normal limits. No solid renal mass lesion is identified. Multiple bilateral renal cysts are present. The urinary bladder is moderately distended at the time of this exam. No intraluminal echoes are iden tified. No abnormal wall thickening is seen. Impression: Multiple bilateral renal cysts. Reviewed, dictated and finalized at location M. CORPORATE RECRUITER Impression: Multiple bilateral renal cysts.
--- OUTSIDE RECORDS SUMMARY | 2024-06-13 14:11 | XMS_ITS | Clinical Summary ---
Author Organization [facility] Svetlana utiiliana Address [address] [place] [address] Phone Care Team Providers Care Pre K Special Education Teacher Name Role Phone Ronald Lam DO Primary Care Provider [phone] Allergies No known active allergies Medications Medication [...] (02/12/2019): Overview: STATUS-POST PTCA Coronary arteriosclerosis in [place] artery 09/17 Overview (02/12/2019): Overview: CRNRY ATHRSCL [...] 60 01/19/2020 9:25 AM CDT Temperature 36.1 C (97 F) 01/19/2020 9:25 AM CDT Respiratory Rate - [...] 12/03/2008 Influenza Vaccine (#1) 2024 Care Teams Pre K Special Education Teacher Relationship Specialty Start Date End Date Ronald Lam DO [address] [place] [id number] PCP - General Internal Medicine 08/18/18
--- OUTSIDE RECORDS SUMMARY | 2024-06-13 14:11 | XMS_ITS | Clinical Summary ---
Author Organization [facility] [address] Address [address] [place] [address] Care Team Providers Care Citrix Engineer Name Role Phone Ronald Lam DO Primary Care Provider [phone] Allergies No known active allergies Medications multivitamin [...] Overview (08/08/2016): MIXED HYPERLIPIDEMIA Coronary arteriosclerosis in [place] artery 09/17 Overview (08/08/2016): CRNRY ATHRSCL NATVE VSSL Hypertension 09/17/2013 Overview (08/08/2016): HYPERTENSION NOS Status post angioplasty with stent Coronary artery disease invo lving citizen [place] coronary artery of citizen [place] heart with unstable angina pectoris Surgical History [...] on file Legal Sex Male 12:20 AM FRONT OFFICE SUPERVISOR Gender Identity Not on file Sexual Orientation Not on file Obstetrics History Last Filed Vital Signs Vital Sign Reading Time Taken Comments Blood Pressure 108/61 05/18/2020 12:34 PM FRONT OFFICE SUPERVISOR Pulse 72 05/18/2020 12:34 PM FRONT OFFICE SUPERVISOR Temperature 36.3 C (97.4 F) 08/17/2019 1:28 PM CDT Respiratory Rate 16 07/09/2018 3:43 PM FRONT OFFICE SUPERVISOR Oxygen Saturation 65% 02/13/2020 8:41 AM CDT Inhaled Oxygen Concentration - - Weight 111.1 kg (245 lb) 05/18/2020 12:34 PM FRONT OFFICE SUPERVISOR Height 185.4 cm (6' 1 ) 05/18/2020 12:34 PM FRONT OFFICE SUPERVISOR Body Mass Index 32.32 05/18/2020 12:34 PM FRONT OFFICE SUPERVISOR Plan of Treatment Not on file Medical Devices Implanted Type Area E M Assembler Device Identifier Shelf Expiration Date Model / Serial / Lot Hone and Strop [id number] Synergy 3mm 32mm 144cm Radiopaque 1 Access Port Inflation Lumen - [id number] Implanted:Qty: 1 on 07/08/2018 by Hector Desai MD at [facility] [employer] 01/12/2020 [id number] / / [id number] Daig [employer] [id number] Angio-Seal Vip Bondek-Plus 6fr .035in 70cm Hemostatic Latex Free - [id number] Implanted:Qty: 1 on 07/08/2018 by Hector Desai MD at [facility] [employer] 03/03/2019 [id number] / / [id number] [place] [address] [facility] MEDICARE [facility] Advance Directives For more information, please contact: [phone] * Full Code (Latest Code Status on File) Date Activated Date Inactivated Comments 07/07/2018 11:10 PM 07/09/2018 8:55 PM Care Teams Citrix Engineer Relationship Specialty Start Date End Date Ronald Lam DO PCP - General 07/07/18
--- OUTSIDE RECORDS SUMMARY | 2024-06-13 14:11 | XMS_ITS | Referral Summary ---
Author Organization [facility] [address] Address [address] [place] [address] Care Team Providers Care Network Admin Name Role Phone Ronald Lam DO Primary Care Provider [phone] Allergies No known active allergies Medications multivitamin [...] Overview (08/08/2016): MIXED HYPERLIPIDEMIA Coronary arteriosclerosis in [place] artery 09/17 Overview (08/08/2016): CRNRY ATHRSCL NATVE VSSL Hypertension 09/17/2013 Overview (08/08/2016): HYPERTENSION NOS Status post angioplasty with stent Coronary artery disease invo lving [place] coronary artery of [place] heart with unstable angina pectoris Social History Tobacco Use Types Packs/Day Years Used Date Smoking Tobacco: Never Smokeless Tobacco: Never Tobacco Cessation:Counseling Given: Yes Alcohol Use Standard Drinks/Week Comments Not Currently 0 (1 standard drink = 0.6 oz pur e alcohol) Sex and Gender Information Value Date Recorded Sex Assigned at Not on file Legal Sex Male 12:20 AM RN PHYSICIAN OFFICE Gender Identity Not on file Sexual Orientation Not on file Last Filed Vital Signs Vital Sign Reading Time Taken Comments Blood Pressure 108/61 05/18/2020 12:34 PM RN PHYSICIAN OFFICE Pulse 72 05/18/2020 12:34 PM RN PHYSICIAN OFFICE Temperature 36.3 C (97.4 F) 08/17/2019 1:28 PM CDT Respiratory Rate 16 07/09/2018 3:43 PM RN PHYSICIAN OFFICE Oxygen Saturation 65% 02/13/2020 8:41 AM CDT Inhaled Oxygen Concentration - - Weight 111.1 kg (245 lb) 05/18/2020 12:34 PM RN PHYSICIAN OFFICE Height 185.4 cm (6' 1 ) 05/18/2020 12:34 PM RN PHYSICIAN OFFICE Body Mass Index 32.32 05/18/2020 12:34 PM RN PHYSICIAN OFFICE Plan of Treatment Not on file Medical Devices Implanted Type Area Fish Cutting Machine Operator Device Identifier Shelf Expiration Date Model / Serial / Lot AbraResto [id number] Synergy 3mm 32mm 144cm Radiopaque 1 Access Port Inflation Lumen - [id number] Implanted:Qty: 1 on 07/08/2018 by Hector Desai MD at [facility] [employer] [facility] 01/12/2020 [id number] 300 / / [id number] Daig [facility] [id number] Angio-Seal Vip Bondek-Plus 6fr .035in 70cm Hemostatic Latex Free - [id number] Implanted:Qty: 1 on 07/08/2018 [facility] 03/03/2019 [id number] / / [id number] Insurance MEDICARE [facility] MEDICARE [facility] Advance Directives For more information, please contact: [phone] * Full Code (Latest Code Status on File) Date Activated Date Inactivated Comments 07/07/2018 11:10 PM 07/09/2018 8:55 PM Care Teams Network Admin Relationship Specialty Start Date End Date Ronald Lam DO PCP - General 07/07/18
== END 2024-06-13 13:57 | disposition home or self-care (01) ==
PROVIDERS: PCP Internal Medicine Nephrology; Visit Provider Internal Medicine Nephrology
DX: Q61.02 Congenital multiple renal cysts (principal); N18.32 Chronic kidney disease, stage 3b
CPT/HCPCS: 76775

== ENCOUNTER 2024-07-18 12:57 | Outpatient (CLI) | payer MEDICARE, SELFPAY ==
--- OUTSIDE RECORDS SUMMARY | 2024-07-18 15:19 | XMS_ITS | Clinical Summary ---
Author Organization [facility] Svetlana utiiliana Address [address] [place] [address] Phone Care Team Providers Care Round Kiln Drawer Name Role Phone Ronald Lam DO Primary Care Provider [phone] Allergies No known active allergies Medications Medication [...] (02/12/2019): Overview: STATUS-POST PTCA Coronary arteriosclerosis in [place] artery 09/17 Overview (02/12/2019): Overview: CRNRY ATHRSCL [...] 12/03/2008 Influenza Vaccine (#1) 2024 Care Teams Round Kiln Drawer Relationship Specialty Start Date End Date Ronald Lam DO [address] [place] [address] PCP - General Internal Medicine 08/18/18
--- OUTSIDE RECORDS SUMMARY | 2024-07-18 15:19 | XMS_ITS | Clinical Summary ---
Author Organization [facility] [place] [address] Address [address] [place] [address] Care Team Providers Care Car Pilot Name Role Phone Ronald Lam DO Primary Care Provider [phone] Allergies No known active allergies Medications multivitamin [...] Overview (08/08/2016): MIXED HYPERLIPIDEMIA Coronary arteriosclerosis in [place] artery 09/17 Overview (08/08/2016): CRNRY ATHRSCL NATVE VSSL Hypertension 09/17/2013 Overview (08/08/2016): HYPERTENSION NOS Status post angioplasty with stent Coronary artery disease invo lving [place] coronary artery of [place] heart with unstable angina pectoris Surgical History [...] on file Legal Sex Male 12:20 AM A/C TECH Gender Identity Not on file Sexual Orientation Not on file Obstetrics History Last Filed Vital Signs Vital Sign Reading Time Taken Comments Blood Pressure 108/61 05/18/2020 12:34 PM A/C TECH Pulse 72 05/18/2020 12:34 PM A/C TECH Temperature 36.3 C (97.4 F) 08/17/2019 1:28 PM CDT Respiratory Rate 16 07/09/2018 3:43 PM A/C TECH Oxygen Saturation 65% 02/13/2020 8:41 AM CDT Inhaled Oxygen Concentration - - Weight 111.1 kg (245 lb) 05/18/2020 12:34 PM A/C TECH Height 185.4 cm (6' 1 ) 05/18/2020 12:34 PM A/C TECH Body Mass Index 32.32 05/18/2020 12:34 PM A/C TECH Plan of Treatment Not on file Medical Devices Implanted Type Area Respiratory Services Manager Device Identifier Shelf Expiration Date Model / Serial / Lot Appointuit [id number] Synergy 3mm 32mm 144cm Radiopaque 1 Access Port Inflation Lumen - [id number] Implanted:Qty: 1 on 07/08/2018 by Hector Desai MD at [facility] [employer] Miranda 01/12/2020 [id number] 300 / / [id number] Daig [employer] [id number] Angio-Seal Vip Bondek-Plus 6fr .035in 70cm Hemostatic Latex Free - [id number] Implanted:Qty: 1 on 07/08/2018 by Hector Desai MD at [facility] [employer] 03/03/2019 [id number] / / [id number] Insurance [facility]ARE [facility] Advance Directives For more information, please contact: [phone] * Full Code (Latest Code Status on File) Date Activated Date Inactivated Comments 07/07/2018 11:10 PM 07/09/2018 8:55 PM Care Teams Car Pilot Relationship Specialty Start Date End Date Ronald Lam DO PCP - General 07/07/18
--- OUTSIDE RECORDS SUMMARY | 2024-07-18 15:19 | XMS_ITS | Referral Summary ---
Author Organization [facility] [place] [address] Address [address] [place] [address] Care Team Providers Care Board Layer Name Role Phone Ronald Lam DO Primary Care Provider Allergies No known active allergies Medications multivitamin [...] Overview (08/08/2016): MIXED HYPERLIPIDEMIA Coronary arteriosclerosis in [place] artery 09/17 Overview (08/08/2016): CRNRY ATHRSCL NATVE VSSL Hypertension 09/17/2013 Overview (08/08/2016): HYPERTENSION NOS Status post angioplasty with stent Coronary artery disease invo lving [place] coronary artery of [place] heart with unstable angina pectoris Social History Tobacco Use Types Packs/Day Years Used Date Smoking Tobacco: Never Smokeless Tobacco: Never Tobacco Cessation:Counseling Given: Yes Alcohol Use Standard Drinks/Week Comments Not Currently 0 (1 standard drink = 0.6 oz pur e alcohol) Sex and Gender Information Value Date Recorded Sex Assigned at Not on file Legal Sex Male 12:20 AM DIRECTOR CORPORATE SALES Gender Identity Not on file Sexual Orientation Not on file Last Filed Vital Signs Vital Sign Reading Time Taken Comments Blood Pressure 108/61 05/18/2020 12:34 PM DIRECTOR CORPORATE SALES Pulse 72 05/18/2020 12:34 PM DIRECTOR CORPORATE SALES Temperature 36.3 C (97.4 F) 08/17/2019 1:28 PM CDT Respiratory Rate 16 07/09/2018 3:43 PM DIRECTOR CORPORATE SALES Oxygen Saturation 65% 02/13/2020 8:41 AM CDT Inhaled Oxygen Concentration - - Weight 111.1 kg (245 lb) 05/18/2020 12:34 PM DIRECTOR CORPORATE SALES Height 185.4 cm (6' 1 ) 05/18/2020 12:34 PM DIRECTOR CORPORATE SALES Body Mass Index 32.32 05/18/2020 12:34 PM DIRECTOR CORPORATE SALES Plan of Treatment Not on file Medical Devices Implanted Type Area Filler Blender Device Identifier Shelf Expiration Date Model / Serial / Lot Novogenie [id number] Synergy 3mm 32mm 144cm Radiopaque 1 Access Port Inflation Lumen - [id number] Implanted:Qty: 1 on 07/08/2018 by Hector Desai MD at [facility] [employer] [facility] 01/12/2020 [id number] 300 / / [id number] Daig [facility] [id number] Angio-Seal Vip Bondek-Plus 6fr .035in 70cm Hemostatic Latex Free - [id number] Implanted:Qty: 1 on 07/08/2018 [facility] 03/03/2019 [id number] / / [id number] Insurance MEDICARE [facility] MEDICARE [facility] Advance Directives For more information, please contact: [phone] * Full Code (Latest Code Status on File) Date Activated Date Inactivated Comments 07/07/2018 11:10 PM 07/09/2018 8:55 PM Care Teams Board Layer Relationship Specialty Start Date End Date Ronald Lam DO PCP - General 07/07/18
== END 2024-07-18 12:58 | disposition home or self-care (01) ==
PROVIDERS: PCP Internal Medicine Nephrology; Visit Provider Otolaryngology Otolaryngology/Facial Plastic Surgery
DX: H90.3 Sensorineural hearing loss, bilateral (principal); H93.12 Tinnitus, left ear; R42 Dizziness and giddiness; Q17.3 Other misshapen ear
CPT/HCPCS: 92557; 92567

== ENCOUNTER 2024-08-10 10:15 | Outpatient (CLI) | payer MEDICARE, SELFPAY ==
--- NOTE | ~2024-08-10 | XR_ITS ---
CHEST RADIOGRAPH, PA AND LATERAL CLINICAL HISTORY: R35.0 - Frequency of micturition SOB X 2 WKS . COMPARISON: 05/12/2020 TECHNIQUE: PA and lateral views of the chest. FINDINGS Sternal wires and mediastinal clips are identified, the wires are midline and intact. Clip projects over the left atrial appendage. Ring detected at the level of the mitral valve. Hiatal hernia. The remainder of the cardiomediastinal silhouette is otherwise unremarkable. Bilateral pleural effusions are identified (an interval change), left greater than right. The lungs are otherwise clear. IMPRESSION: Interval development of bilateral pleural effusions, left greater than right. No focal infiltrate. Reviewed, dictated and finalized at location A.
[2024-08-10 11:07] LABS: Add Urine Microscopic? YES; Appearance Urine Clear (Clear); Bacteria Urine None Seen /hpf; Bilirubin Urine Negative (Negative); Blood Urine Trace (Negative); Color Urine Yellow (Yellow); Glucose Urine UA Negative (Negative); Ketones Urine Negative (Negative); Leukocyte Esterase Ur Negative LEU/UL (Negative); Nitrate Urine Negative (Negative); Non Pathogenic Casts 0-2; Protein Urine 3+ mg/dL (Negative); RBC Urine 0-2 /hpf (0-2); Specific Grav Ur 1.014 (1.001-1.035); Squamous Epithelial Cell Urine None Seen /hpf (Few); Urobilinogen Urine 0.2 mg/dL (<2.0); WBC Urine 0-5 /hpf (0-3)
[2024-08-10 11:07] LABS: Hematocrit 30.4 % (42.0-52.0); Mean Corpuscular HGB Conc 32.9 g/dl (32-36); Mean Corpuscular Hemoglobin 29.3 pg (26-34); Mean Corpuscular Volume 89.1 fl (80-100); Mean Platelet Volume 10.3 fl (7.4-10.4); Platelet Count Result 171 k/mm3 (150-375); Red Blood Count 3.41 M/mm3 (4.6-6.20); Red Cell Distribution Width 15.6 % (11.5-14.5); White Blood Count 5.3 K/mm3 (4.5-10.0)
[2024-08-10 11:35] LABS: Albumin Level 4.4 g/dL (3.5-5.1); Anion Gap 13 mmol/L (4-12); Blood Urea Nitrogen 20 mg/dL (9-20); Calcium 9.4 mg/dL (8.4-10.2); Carbon Dioxide 19 mmol/L (22-30); Chloride 110 mmol/L (98-107); Estimated Glomerular Filt Rate 27; Glucose 109 mg/dL (65-110); Phosphorus 3.6 mg/dL (2.5-4.5); Potassium 3.8 mmol/L (3.4-5.0); Sodium 142 mmol/L (137-145)
--- OUTSIDE RECORDS SUMMARY | 2024-08-10 11:42 | XMS_ITS | Clinical Summary ---
Author Organization [facility] [place] [address] Address [address] [place] [address] Care Team Providers Care Talent Development Manager Name Role Phone Ronald Lam DO Primary Care Provider [phone] Allergies No known active allergies Medications multivitamin [...] Overview (08/08/2016): MIXED HYPERLIPIDEMIA Coronary arteriosclerosis in [place] artery 09/17 Overview (08/08/2016): CRNRY ATHRSCL NATVE VSSL Hypertension 09/17/2013 Overview (08/08/2016): HYPERTENSION NOS Status post angioplasty with stent Coronary artery disease invo lving [place] coronary artery of [place] heart with unstable angina pectoris Surgical History [...] on file Legal Sex Male 12:20 AM LACE PAPER MACHINE OPERATOR Gender Identity Not on file Sexual Orientation Not on file Obstetrics History Last Filed Vital Signs Vital Sign Reading Time Taken Comments Blood Pressure 108/61 05/18/2020 12:34 PM LACE PAPER MACHINE OPERATOR Pulse 72 05/18/2020 12:34 PM LACE PAPER MACHINE OPERATOR Temperature 36.3 C (97.4 F) 08/17/2019 1:28 PM CDT Respiratory Rate 16 07/09/2018 3:43 PM LACE PAPER MACHINE OPERATOR Oxygen Saturation 65% 02/13/2020 8:41 AM CDT Inhaled Oxygen Concentration - - Weight 111.1 kg (245 lb) 05/18/2020 12:34 PM LACE PAPER MACHINE OPERATOR Height 185.4 cm (6' 1 ) 05/18/2020 12:34 PM LACE PAPER MACHINE OPERATOR Body Mass Index 32.32 05/18/2020 12:34 PM LACE PAPER MACHINE OPERATOR Plan of Treatment Not on file Medical Devices Implanted Type Area Jtac Device Identifier Shelf Expiration Date Model / Serial / Lot Exterity [id number] Synergy 3mm 32mm 144cm Radiopaque 1 Access Port Inflation Lumen - [id number] Implanted:Qty: 1 on 07/08/2018 by Hector Desai MD at [facility] [employer] 01/12/2020 [id number] 300 / / [id number] Daig [employer] [id number] Angio-Seal Vip Bondek-Plus 6fr .035in 70cm Hemostatic Latex Free - [id number] Implanted:Qty: 1 on 07/08/2018 by Hector Desai MD at [facility] [employer] 03/03/2019 [id number] / / [id number] Insurance MEDICARE [facility] MEDICARE [facility] Advance Directives For more information, please contact: [phone] * Full Code (Latest Code Status on File) Date Activated Date Inactivated Comments 07/07/2018 11:10 PM 07/09/2018 8:55 PM Care Teams Talent Development Manager Relationship Specialty Start Date End Date Ronald Lam DO PCP - General 07/07/18
--- OUTSIDE RECORDS SUMMARY | 2024-08-10 11:42 | XMS_ITS | Clinical Summary ---
Author Organization [facility] Address [address] [place] [address] Phone Care Team Providers Care Lead Burner Apprentice Name Role Phone Ronald Lam DO Primary Care Provider [phone] Allergies No known active allergies Medications allopurinol (ZYLOPRIM) 300 MG tablet 1 daily 06/17/2015 Active Multiple Vitamin (MULTIVITAMIN) capsule 1 daily 06/17/2015 Active calcitriol (ROCALTROL) 0.25 MCG capsule TAKE ONE CAPSULE BY MOUTH MON.,WED. AND FRI. 5 02/21/2016 Active losartan-hydroC HLOROthiazide (HYZAAR) 100-12.5 MG per tablet 1 tablet [...] (02/12/2019): Overview: STATUS-POST PTCA Coronary arteriosclerosis in [place] artery 09/17 Overview (02/12/2019): Overview: CRNRY ATHRSCL NATVE VSSL Immunizations Immunization Administration Dates Next Due Pneumococcal Conjugate 01/02/2018 [...] at Not on file Legal Sex Male 8:36 AM MST Gender Identity Not on file Sexual Orientation [...] of 4 - PCV) 12/03/2008 Influenza Vaccine (Season Ended) 2025 Insurance MEDICARE [facility] Care Teams Lead Burner Apprentice Relationship Specialty Start Date End Date Ronald Lam DO [address] [place] [address] PCP - General Internal Medicine 08/18/18
--- OUTSIDE RECORDS SUMMARY | 2024-08-10 11:42 | XMS_ITS | Referral Summary ---
Author Organization [facility] [place] [address] Address [address] [place] [address] Care Team Providers Care Heart Nurse Name Role Phone Ronald Lam DO Primary Care Provider [phone] Allergies No known active allergies Medications multivitamin [...] Overview (08/08/2016): MIXED HYPERLIPIDEMIA Coronary arteriosclerosis in [place] artery 09/17 Overview (08/08/2016): CRNRY ATHRSCL NATVE VSSL Hypertension 09/17/2013 Overview (08/08/2016): HYPERTENSION NOS Status post angioplasty with stent Coronary artery disease invo lving [place] coronary artery of [place] heart with unstable angina pectoris Social History Tobacco Use Types Packs/Day Years Used Date Smoking Tobacco: Never Smokeless Tobacco: Never Tobacco Cessation:Counseling Given: Yes Alcohol Use Standard Drinks/Week Comments Not Currently 0 (1 standard drink = 0.6 oz pur e alcohol) Sex and Gender Information Value Date Recorded Sex Assigned at Not on file Legal Sex Male 12:20 AM TUBE BACKER Gender Identity Not on file Sexual Orientation Not on file Last Filed Vital Signs Vital Sign Reading Time Taken Comments Blood Pressure 108/61 05/18/2020 12:34 PM TUBE BACKER Pulse 72 05/18/2020 12:34 PM TUBE BACKER Temperature 36.3 C (97.4 F) 08/17/2019 1:28 PM CDT Respiratory Rate 16 07/09/2018 3:43 PM TUBE BACKER Oxygen Saturation 65% 02/13/2020 8:41 AM CDT Inhaled Oxygen Concentration - - Weight 111.1 kg (245 lb) 05/18/2020 12:34 PM TUBE BACKER Height 185.4 cm (6' 1 ) 05/18/2020 12:34 PM TUBE BACKER Body Mass Index 32.32 05/18/2020 12:34 PM TUBE BACKER Plan of Treatment Not on file Medical Devices Implanted Type Area Locomotive Observer Device Identifier Shelf Expiration Date Model / Serial / Lot Mobile Fuel [id number] Synergy 3mm 32mm 144cm Radiopaque 1 Access Port Inflation Lumen - [id number] Implanted:Qty: 1 on 07/08/2018 by Hector Desai MD at [facility] [employer] [facility] 01/12/2020 [id number] 300 / / [id number] Daig [facility] [id number] Angio-Seal Vip Bondek-Plus 6fr .035in 70cm Hemostatic Latex Free - [id number] Implanted:Qty: 1 on 07/08/2018 [facility] 03/03/2019 [id number] / / [id number] Insurance MEDICARE [facility] MEDICARE [facility] Advance Directives For more information, please contact: [phone] * Full Code (Latest Code Status on File) Date Activated Date Inactivated Comments 07/07/2018 11:10 PM 07/09/2018 8:55 PM Care Teams Heart Nurse Relationship Specialty Start Date End Date Ronald Lam DO PCP - General 07/07/18
[2024-08-10 12:39] LABS: Creatinine Urine 72.4 mg/dL
[2024-08-10 12:47] LABS: Total Protein Urine Random 577 mg/dL; Ur Ttl Prot Creatinine Ratio 7.97 mg/mg (0-0.20)
[2024-08-10 15:00] LABS: Parathyroid Intact 216.8 pg/mL (14.5-75.2)
== END 2024-08-10 10:16 | disposition home or self-care (01) ==
PROVIDERS: Visit Provider Internal Medicine Nephrology
DX: N18.32 Chronic kidney disease, stage 3b (principal); R35.0 Frequency of micturition; R06.02 Shortness of breath
CPT/HCPCS: 36415; 71046; 80069; 81001; 82570; 83970; 84156; 85027; 87086

== ENCOUNTER 2024-08-30 08:38 | Outpatient (CLI) | payer MEDICARE, SELFPAY ==
--- NOTE | ~2024-08-30 | MR_ITS ---
MR IAC wo/w con Ordering provider: Klaus Harrison MD History: . H91.8X3 - Other specified hearing loss, bilateral . Comparison: None. Technique: MRI brain and internal auditory canals with and without contrast with thin slice coronal a nd sagittal images through the internal auditory canals was performed per protocol. 20 mL of MultiHa nce was given IV. FINDINGS: BONES: Normal. CRANIOCERVICAL JUNCTION: normal. PITUITARY: Normal. MAJOR INTRACRANIAL VESSELS: Normal flow void. OPTIC NERVES AND CRANIAL NERVES VII AND VIII COMPLEXES: Grossly normal. BRAIN PARENCHYMA AND CSF SPACES: Mild nonspecific T2 white matter hyperintensities are seen in a triston ateral periventricular and deep white matter distribution which are likely related to chronic ischemi c small vessel disease. Mild diffuse cortical atrophy. The brainstem and cerebellum are normal. No ac ewiiaapaayp or chronic intracranial hemorrhage. Susceptibility artifact is seen in the interventricular septu m anteriorly and in the basal ganglia which is most likely due to calcification. No extra axial fluid collections. Diffusion weighted and ADC mapping images reveal no recent ischemia. No midline shift o r mass effect. No abnormal contrast enhancement. PARANASAL SINUSES: Bilateral ethmoid sinus disease. Left maxillary sinus disease. Otherwise, Normal. SUPERFICIAL/SURROUNDING SOFT TISSUES: Normal. IACs: --MASTOIDS: Normal. --EXTERNAL AUDITORY CANALS AND MIDDLE EARS: Normal. --COCHLEA AND SEMICIRCULAR CANALS: Normal bilaterally. --EUSTACHIAN TUBES/FOSSAE OF [place]ENMUELLER: Normal. --ABNORMAL ENHANCEMENT: None. IMPRESSION: 1. No definite abnormality seen in both external, middle and internal ears. 2. No abnormal enhancing lesions seen. 3. Deep white matter ischemic changes with mild brain atrophy. 4. Bilateral ethmoid and left maxillary sinusitis. Reviewed, dictated and finalized at location A.
== END 2024-08-30 08:39 | disposition home or self-care (01) ==
PROVIDERS: Visit Provider Otolaryngology Otolaryngology/Facial Plastic Surgery
DX: H91.8X3 Other specified hearing loss, bilateral (principal); R90.82 White matter disease, unspecified; G31.9 Degenerative disease of nervous system, unspecified; J01.20 Acute ethmoidal sinusitis, unspecified
CPT/HCPCS: 70553; A9577

== ENCOUNTER 2024-11-01 13:29 | Outpatient (CLI) | payer MEDICARE, SELFPAY ==
--- OUTSIDE RECORDS SUMMARY | 2024-11-01 13:35 | XMS_ITS | Referral Summary ---
Author Organization [facility] [place] [address] [facility] [address] Address [address] [place] [address] Care Team Providers Care College Admissions Counselor Name Role Phone Ronald Lam DO Primary Care Provider [phone] Encounters Date Type Department Care Team Description 08/23/2024 Telephone [facility] Cardiology [address] [place] [address] Hector Desai MD from Last 3 Months Allergies No known active allergies Medications multivitamin [...] Overview (08/08/2016): MIXED HYPERLIPIDEMIA Coronary arteriosclerosis in [place] artery 09/17 Overview (08/08/2016): CRNRY ATHRSCL NATVE VSSL Hypertension 09/17/2013 Overview (08/08/2016): HYPERTENSION NOS Status post angioplasty with stent Coronary artery disease invo lving [place] coronary artery of [place] heart with unstable angina pectoris Social History Tobacco Use Types Packs/Day Years Used Date Smoking Tobacco: Never Smokeless Tobacco: Never Tobacco Cessation:Counseling Given: Yes Alcohol Use Standard Drinks/Week Comments Not Currently 0 (1 standard drink = 0.6 oz pur e alcohol) Sex and Gender Information Value Date Recorded Sex Assigned at Not on file Legal Sex Male 12:20 AM CASKET COVERER Gender Identity Not on file Sexual Orientation Not on file Last Filed Vital Signs Vital Sign Reading Time Taken Comments Blood Pressure 108/61 05/18/2020 12:34 PM CASKET COVERER Pulse 72 05/18/2020 12:34 PM CASKET COVERER Temperature 36.3 C (97.4 F) 08/17/2019 1:28 PM CDT Respiratory Rate 16 07/09/2018 3:43 PM CASKET COVERER Oxygen Saturation 65% 02/13/2020 8:41 AM CDT Inhaled Oxygen Concentration - - Weight 111.1 kg (245 lb) 05/18/2020 12:34 PM CASKET COVERER Height 185.4 cm (6' 1) 05/18/2020 12:34 PM CASKET COVERER Body Mass Index 32.32 05/18/2020 12:34 PM CASKET COVERER Plan of Treatment Not on file Medical Devices Implanted Type Area Content Strategist Device Identifier Shelf Expiration Date Model / Serial / Lot LocoMobi [id number] Synergy 3mm 32mm 144cm Radiopaque 1 Access Port Inflation Lumen - [id number] Implanted:Qty: 1 on 07/08/2018 by Hector Desai MD at [facility] [employer] 01/12/2020 [id number] 300 / / [id number] Daig [employer] [id number] Angio-Seal Vip Bondek-Plus 6fr .035in 70cm Hemostatic Latex Free - [id number] Implanted:Qty: 1 on 07/08/2018 by Hector Desai MD at [facility] [employer] 03/03/2019 [id number] / / [id number] Insurance MEDICARE [facility] MEDICARE [facility] Advance Directives For more information, please contact: [phone] * Full Code (Latest Code Status on File) Date Activated Date Inactivated Comments 07/07/2018 11:10 PM 07/09/2018 8:55 PM Care Teams College Admissions Counselor Relationship Specialty Start Date End Date Ronald Lam DO PCP - General 07/07/18
--- OUTSIDE RECORDS SUMMARY | 2024-11-01 13:35 | XMS_ITS | Clinical Summary ---
Author Organization [facility] [place] [address] Address [address] [place] [address] Care Team Providers Care Director Nurses' Registry Name Role Phone Ronald Lam DO Primary Care Provider [phone] Allergies No known active allergies Medications multivitamin [...] Overview (08/08/2016): MIXED HYPERLIPIDEMIA Coronary arteriosclerosis in [place] artery 09/17 Overview (08/08/2016): CRNRY ATHRSCL NATVE VSSL Hypertension 09/17/2013 Overview (08/08/2016): HYPERTENSION NOS Status post angioplasty with stent Coronary artery disease invo lving [place] coronary artery of [place] heart with unstable angina pectoris Encounters Date Type Department Care Team Description 08/23/2024 Telephone [facility] Cardiology [address] [place] [address] Hector Desai MD from Last 3 Months Surgical History Surgery Date Site/Laterality Comments CORONARY [...] on file Legal Sex Male 12:20 AM LINER CHECKER Gender Identity Not on file Sexual Orientation Not on file Obstetrics History Last Filed Vital Signs Vital Sign Reading Time Taken Comments Blood Pressure 108/61 05/18/2020 12:34 PM LINER CHECKER Pulse 72 05/18/2020 12:34 PM LINER CHECKER Temperature 36.3 C (97.4 F) 08/17/2019 1:28 PM CDT Respiratory Rate 16 07/09/2018 3:43 PM LINER CHECKER Oxygen Saturation 65% 02/13/2020 8:41 AM CDT Inhaled Oxygen Concentration - - Weight 111.1 kg (245 lb) 05/18/2020 12:34 PM LINER CHECKER Height 185.4 cm (6' 1) 05/18/2020 12:34 PM LINER CHECKER Body Mass Index 32.32 05/18/2020 12:34 PM LINER CHECKER Plan of Treatment Not on file Medical Devices Implanted Type Area Preform Machine Operator Device Identifier Shelf Expiration Date Model / Serial / Lot Greenwald [employer] Miranda [id number] Synergy 3mm 32mm 144cm Radiopaque 1 Access Port Inflation Lumen - [id number] Implanted:Qty: 1 on 07/08/2018 by Hector Desai MD at [facility] [employer] 01/12/2020 [id number] 300 / / [id number] Daig [employer] [id number] Angio-Seal Vip Bondek-Plus 6fr .035in 70cm Hemostatic Latex Free - [id number] Implanted:Qty: 1 on 07/08/2018 by Hector Desai MD at [facility] [employer] 03/03/2019 [id number] / / [id number] Insurance MEDICARE [facility] MEDICARE [facility] Advance Directives For more information, please contact: [phone] * Full Code (Latest Code Status on File) Date Activated Date Inactivated Comments 07/07/2018 11:10 PM 07/09/2018 8:55 PM Care Teams Director Nurses' Registry Relationship Specialty Start Date End Date Ronald Lam DO PCP - General 07/07/18
--- OUTSIDE RECORDS SUMMARY | 2024-11-01 13:35 | XMS_ITS | Clinical Summary ---
Author Organization [facility] Address [address] [place] [address] Phone Care Team Providers Care Arch Cushion Press Operator Name Role Phone Ronald Lam DO Primary Care Provider [phone] Allergies No known active allergies Medications allopurinol [...] (02/12/2019): Overview: STATUS-POST PTCA Coronary arteriosclerosis in [place] artery 09/17 Overview (02/12/2019): Overview: CRNRY ATHRSCL [...] 9:25 AM CDT Height 185.4 cm (6' 1) 01/19/2020 9:25 AM CDT Body Mass Index 33.12 01/19/2020 9:25 AM CDT Plan of Treatment Health Maintenance Due Date Last Done Comments Pneumococcal PPSV23/PCV13 65 + Years / Low and Medium Risk (1 of 2 - PCV) 12/03/1993 Influenza Vaccine (Season Ended) 2025 Insurance MEDICARE [facility] Care Teams Arch Cushion Press Operator Relationship Specialty Start Date End Date Ronald Lam DO [address] [place] [id number] PCP - General Internal Medicine 08/18/18
[2024-11-01 14:11] LABS: Hematocrit 30.0 % (42.0-52.0); Hemoglobin 9.7 g/dL (14.0-18.0); Immature Granulocyte Percent A 0.2 % (0-0.5); Lymphocytes Absolute Auto 0.84 K/mm3 (0.9-3.2); Mean Corpuscular HGB Conc 32.3 g/dl (32-36); Mean Corpuscular Hemoglobin 28.5 pg (26-34); Mean Corpuscular Volume 88.2 fl (80-100); Nucleated Red Blood Cells Absolute Auto 0.000 K/mm3 (0.0-0.012); Nucleated Red Blood Cells Perc 0.0 % (0.0-0.2); Platelet Count Result 171 k/mm3 (150-375); Red Blood Count 3.40 M/mm3 (4.6-6.20); White Blood Count 5.5 K/mm3 (4.5-10.0)
[2024-11-01 14:23] LABS: Albumin Level 4.0 g/dL (3.5-5.1); Anion Gap 11 mmol/L (4-12); Blood Urea Nitrogen 24 mg/dL (9-20); Calcium 9.3 mg/dL (8.4-10.2); Carbon Dioxide 17 mmol/L (22-30); Chloride 111 mmol/L (98-107); Estimated Glomerular Filt Rate 22; Glucose 106 mg/dL (65-110); Potassium 4.4 mmol/L (3.4-5.0); Sodium 139 mmol/L (137-145)
== END 2024-11-01 13:30 | disposition home or self-care (01) ==
PROVIDERS: Visit Provider Internal Medicine Nephrology
DX: N18.30 Chronic kidney disease, stage 3 unspecified (principal); D63.1 Anemia in chronic kidney disease
CPT/HCPCS: 36415; 80069; 85025

== ENCOUNTER 2025-02-03 10:39 | Outpatient (CLI) | payer MEDICARE, SELFPAY ==
--- OUTSIDE RECORDS SUMMARY | 2025-02-03 10:48 | XMS_ITS | Clinical Summary ---
Author Organization [facility] [place] [address] Address [address] [place] [address] Care Team Providers Care Furnace Room Supervisor Name Role Phone Ronald Lam DO Primary Care Provider [phone] Allergies No known active allergies Medications multivitamin [...] Overview (08/08/2016): MIXED HYPERLIPIDEMIA Coronary arteriosclerosis in [place] artery 09/17 Overview (08/08/2016): CRNRY ATHRSCL NATVE VSSL Hypertension 09/17/2013 Overview (08/08/2016): HYPERTENSION NOS Status post angioplasty with stent Coronary artery disease invo lving [place] coronary artery of [place] heart with unstable angina pectoris Surgical History [...] on file Legal Sex Male 12:20 AM KNITTING MACHINE OPERATOR Gender Identity Not on file Sexual Orientation Not on file Obstetrics History Last Filed Vital Signs Vital Sign Reading Time Taken Comments Blood Pressure 108/61 05/18/2020 12:34 PM KNITTING MACHINE OPERATOR Pulse 72 05/18/2020 12:34 PM KNITTING MACHINE OPERATOR Temperature 36.3 C (97.4 F) 08/17/2019 1:28 PM CDT Respiratory Rate 16 07/09/2018 3:43 PM KNITTING MACHINE OPERATOR Oxygen Saturation 65% 02/13/2020 8:41 AM CDT Inhaled Oxygen Concentration - - Weight 111.1 kg (245 lb) 05/18/2020 12:34 PM KNITTING MACHINE OPERATOR Height 185.4 cm (6' 1) 05/18/2020 12:34 PM KNITTING MACHINE OPERATOR Body Mass Index 32.32 05/18/2020 12:34 PM KNITTING MACHINE OPERATOR Plan of Treatment Not on file Medical Devices Implanted Type Area Fiscal Officer Device Identifier Shelf Expiration Date Model / Serial / Lot Vivakor [id number] Synergy 3mm 32mm 144cm Radiopaque 1 Access Port Inflation Lumen - [id number] Implanted:Qty: 1 on 07/08/2018 by Hector Desai MD at [facility] [employer] 01/12/2020 [id number] 300 / / [id number] [employer] [id number] Angio-Seal Vip Bondek-Plus 6fr .035in 70cm Hemostatic Latex Free - [id number] Implanted:Qty: 1 on 07/08/2018 by Hector Desai MD at [facility] [employer] 03/03/2019 [id number] / / [id number] Insurance [facility]ARE [facility] Advance Directives For more information, please contact: [phone] * Full Code (Latest Code Status on File) Date Activated Date Inactivated Comments 07/07/2018 11:10 PM 07/09/2018 8:55 PM Care Teams Furnace Room Supervisor Relationship Specialty Start Date End Date Ronald Lam DO PCP - General 07/07/18
--- OUTSIDE RECORDS SUMMARY | 2025-02-03 10:48 | XMS_ITS | Clinical Summary ---
Author Organization [facility] Address [address] [place] [id number] Phone Care Team Providers Care Pre Algebra Teacher Name Role Phone Ronald Lam DO Primary Care Provider [phone] Allergies No known active allergies Medications allopurinol [...] (02/12/2019): Overview: STATUS-POST PTCA Coronary arteriosclerosis in [place] artery 09/17 Overview (02/12/2019): Overview: CRNRY ATHRSCL [...] of 2 - PCV) 12/03/1993 Influenza Vaccine (#1) 2025 Insurance MEDICARE [facility] Care Teams Pre Algebra Teacher Relationship Specialty Start Date End Date Ronald Lam DO [address] [place] [id number] PCP - General Internal Medicine 08/18/18
[2025-02-03 11:34] LABS: Add Urine Microscopic? YES; Appearance Urine Clear (Clear); Glucose Urine UA Negative (Negative); Leukocyte Esterase Ur Negative LEU/UL (Negative); Nitrate Urine Negative (Negative); Non Pathogenic Casts 0-2; Specific Grav Ur 1.014 (1.001-1.035)
[2025-02-03 11:46] LABS: Albumin Level 4.0 g/dL (3.5-5.1); Anion Gap 7 mmol/L (4-12); Blood Urea Nitrogen 18 mg/dL (9-20); Calcium 9.0 mg/dL (8.4-10.2); Carbon Dioxide 24 mmol/L (22-30); Chloride 108 mmol/L (98-107); Estimated Glomerular Filt Rate 24; Glucose 110 mg/dL (65-110); Potassium 3.9 mmol/L (3.4-5.0); Sodium 139 mmol/L (137-145)
== END 2025-02-03 10:40 | disposition home or self-care (01) ==
PROVIDERS: Visit Provider Internal Medicine Nephrology
DX: I12.9 Hypertensive chronic kidney disease with stage 1 through stage 4 chronic kidney disease, or unspecified chronic kidney disease (principal); N18.4 Chronic kidney disease, stage 4 (severe); E87.20 Acidosis, unspecified; D63.8 Anemia in other chronic diseases classified elsewhere; N25.81 Secondary hyperparathyroidism of renal origin
CPT/HCPCS: 36415; 80069; 81001; 82306

== ENCOUNTER 2025-03-08 09:00 | Outpatient (CLI) | payer MEDICARE, SELFPAY ==
--- OUTSIDE RECORDS SUMMARY | 2025-03-08 09:32 | XMS_ITS | Clinical Summary ---
Author Organization [facility] [place] [address] Address [address] [place] [address] Care Team Providers Care Service Vehicle Operator Name Role Phone Ronald Lam DO Primary Care Provider [phone] Allergies No known active allergies Medications multivitamin [...] Overview (08/08/2016): MIXED HYPERLIPIDEMIA Coronary arteriosclerosis in [place] artery 09/17 Overview (08/08/2016): CRNRY ATHRSCL NATVE VSSL Hypertension 09/17/2013 Overview (08/08/2016): HYPERTENSION NOS Status post angioplasty with stent Coronary artery disease invo lving [place] coronary artery of [place] heart with unstable angina pectoris Surgical History [...] on file Legal Sex Male 12:20 AM PROBATE JUDGE Gender Identity Not on file Sexual Orientation Not on file Last Filed Vital Signs Vital Sign Reading Time Taken Comments Blood Pressure 108/61 05/18/2020 12:34 PM PROBATE JUDGE Pulse 72 05/18/2020 12:34 PM PROBATE JUDGE Temperature 36.3 C (97.4 F) 08/17/2019 1:28 PM CDT Respiratory Rate 16 07/09/2018 3:43 PM PROBATE JUDGE Oxygen Saturation 65% 02/13/2020 8:41 AM CDT Inhaled Oxygen Concentration - - Weight 111.1 kg (245 lb) 05/18/2020 12:34 PM PROBATE JUDGE Height 185.4 cm (6' 1) 05/18/2020 12:34 PM PROBATE JUDGE Body Mass Index 32.32 05/18/2020 12:34 PM PROBATE JUDGE Plan of Treatment Not on file Medical Devices Implanted Type Area Installation And Repair Technician Device Identifier Shelf Expiration Date Model / Serial / Lot Engage [id number] Synergy 3mm 32mm 144cm Radiopaque 1 Access Port Inflation Lumen - [id number] Implanted:Qty: 1 on 07/08/2018 by Hector Desai MD at [facility] [employer] 01/12/2020 [id number] 300 / / [id number] [employer] [facility] [id number] Angio-Seal Vip Bondek-Plus 6fr .035in 70cm Hemostatic Latex Free - [id number] Implanted:Qty: 1 on 07/08/2018 by Hector Desai MD at [facility] [employer] 03/03/2019 [id number] / / [id number] Insurance MEDICARE [facility] MEDICARE [facility] Advance Directives For more information, please contact: [phone] * Full Code (Latest Code Status on File) Date Activated Date Inactivated Comments 07/07/2018 11:10 PM 07/09/2018 8:55 PM Care Teams Service Vehicle Operator Relationship Specialty Start Date End Date Ronald Lam DO PCP - General 07/07/18
[2025-03-08 10:22] LABS: Prostate Specific Antigen < 0.1 ng/mL (< OR = 4.0)
== END 2025-03-08 09:01 | disposition home or self-care (01) ==
DX: C61 Malignant neoplasm of prostate (principal)
CPT/HCPCS: 36415; 84153

== ENCOUNTER 2025-04-28 08:41 | Outpatient (CLI) | payer MEDICARE, SELFPAY ==
--- OUTSIDE RECORDS SUMMARY | 2025-04-28 08:47 | XMS_ITS | Clinical Summary ---
Author Organization [facility] Address [address] [place] [address] Phone Care Team Providers Care Crane Helper Name Role Phone Ronald Lam DO Primary Care Provider [phone] Allergies No known active allergies Medications allopurinol [...] (02/12/2019): Overview: STATUS-POST PTCA Coronary arteriosclerosis in [place] artery 09/17 Overview (02/12/2019): Overview: CRNRY ATHRSCL [...] 12/03/1993 Influenza Vaccine (#1) 2025 Insurance MEDICARE [facility] Care Teams Crane Helper Relationship Specialty Start Date End Date Ronald Lam DO [address] [place] [phone] PCP - General Internal Medicine 08/18/18
--- OUTSIDE RECORDS SUMMARY | 2025-04-28 08:47 | XMS_ITS | Clinical Summary ---
Author Organization [facility] – [place] [address] Address [address] [place] [address] Care Team Providers Care Ict Customer Support Officer Name Role Phone Ronald Lam DO Primary Care Provider [phone] Allergies No known active allergies Medications multivitamin [...] Overview (08/08/2016): MIXED HYPERLIPIDEMIA Coronary arteriosclerosis in [place] artery 09/17 Overview (08/08/2016): CRNRY ATHRSCL NATVE VSSL Hypertension 09/17/2013 Overview (08/08/2016): HYPERTENSION NOS Status post angioplasty with stent Coronary artery disease invo lving [place] coronary artery of [place] heart with unstable angina pectoris Surgical History [...] on file Legal Sex Male 12:20 AM REGIONAL FORESTER Gender Identity Not on file Sexual Orientation Not on file Last Filed Vital Signs Vital Sign Reading Time Taken Comments Blood Pressure 108/61 05/18/2020 12:34 PM REGIONAL FORESTER Pulse 72 05/18/2020 12:34 PM REGIONAL FORESTER Temperature 36.3 C (97.4 F) 08/17/2019 1:28 PM CDT Respiratory Rate 16 07/09/2018 3:43 PM REGIONAL FORESTER Oxygen Saturation 65% 02/13/2020 8:41 AM CDT Inhaled Oxygen Concentration - - Weight 111.1 kg (245 lb) 05/18/2020 12:34 PM REGIONAL FORESTER Height 185.4 cm (6' 1) 05/18/2020 12:34 PM REGIONAL FORESTER Body Mass Index 32.32 05/18/2020 12:34 PM REGIONAL FORESTER Plan of Treatment Not on file Medical Devices Implanted Type Area Sampler Radioactive Waste Device Identifier Shelf Expiration Date Model / Serial / Lot Stremor [id number] Synergy 3mm 32mm 144cm Radiopaque 1 Access Port Inflation Lumen - [id number] Implanted:Qty: 1 on 07/08/2018 by Hector Desai MD at [facility] [employer] Miranda 01/12/2020 [id number] 300 / / [id number] Daig [facility] [id number] Angio-Seal Vip Bondek-Plus 6fr .035in 70cm Hemostatic Latex Free - [id number] Implanted:Qty: 1 on 07/08/2018 by Hector Desai MD at [facility] [employer] 03/03/2019 [id number] / / [id number] Insurance MEDICARE [facility] MEDICARE [facility] Advance Directives For more information, please contact: [phone] * Full Code (Latest Code Status on File) Date Activated Date Inactivated Comments 07/07/2018 11:10 PM 07/09/2018 8:55 PM Care Teams Ict Customer Support Officer Relationship Specialty Start Date End Date Ronald Lam DO PCP - General 07/07/18
--- OUTSIDE RECORDS SUMMARY | 2025-04-28 08:47 | XMS_ITS | Clinical Summary ---
Author Organization [facility] Address [address] [address] Care Team Providers Care Rough Rice Tender Name Role Phone Unavailable Primary Care Provider Unavailabl e Allergies No known active allergies Medications multivitamin capsule Take by mouth. 06/17/2015 Active allopurinoL (ZYLOPRIM) 300 MG tablet Take 300 mg by mouth. 06/17/2015 Active apixaban 5 mg tab Take 5 mg by mouth 2 (two) times a day. 10/21/2018 Active aspirin 81 MG tablet Take 81 mg by mouth daily. Active atorvastatin (LIPITOR) 80 MG tablet Take 80 mg by mouth daily. 09/01/2018 Active calcitrioL (ROCALTROL) 0.25 MCG capsule Take 1 capsule by mouth 3 (three) times a week. 02/21/2016 Active carvediloL (Coreg) 25 MG tablet Take 25 mg by mouth daily. 06/17/2015 Active clopidogreL (PLAVIX) 75 mg tablet Take 75 mg by mouth daily. 01/20/2019 Active diltiazem (DILT-XR) 120 MG 24 hr capsule Take 120 mg by mouth daily. 08/19/2018 Active ezetimibe (ZETIA) 10 mg tablet Take 1 tablet by mouth daily. 11/26/2019 Active losartan-hydroc hlorothiazide (HYZAAR) 100-12.5 mg tablet Take 1 tablet by mouth daily. 07/23/2016 Active magnesium oxide (MAG-OX) 400 mg (241.3 mg magnesium) tablet Take 400 mg by mouth daily. Active temazepam (RESTORIL) 7.5 MG capsule Take 1 capsule by mouth nightly. 07/13/2018 Active HERBAL DRUGS ORAL Take 1 capsule by mouth nightly. Tumeric Active meclizine HCl (MECLIZINE ORAL) Take 25 mg by mouth as needed. Active multivitamin-mi nerals-lutein tab Take 1 capsule by mouth daily. Active acetaminophen (TYLENOL) 500 MG tablet Take 500 mg by mouth every 6 (six) hours as needed. Active ciprofloxacin HCl (CIPRO) 500 MG tablet Take 500 mg by mouth 2 (two) times a day. 03/14/2020 Active senna-docusate (PERICOLACE) 8.6-50 mg Take 1 tablet by mouth 2 (two) times a day. 03/13/2020 Active Active Problems Patient Care Coordination No te Formatting of this note migh t be different from the original. Per Eve samayoa line removed @MDO Problem Noted Date Diagnosed Date Bacteremia 05/25/2020 Endocarditis 05/25/2020 Social History Tobacco Use Types Packs/Day Years Used Date Smoking Tobacco: Never Sex and Gender Information Value Date Recorded Sex Assigned at Not on file Legal Sex Male 4:19 PM EST Gender Identity Not on file Sexual Orientation Not on file Last Filed Vital Signs Vital Sign Reading Time Taken Comments Blood Pressure 160/101 05/29/2020 3:10 PM JUVENILE CORRECTIONAL OFFICER Pulse 67 05/29/2020 3:10 PM JUVENILE CORRECTIONAL OFFICER Temperature 36.3 C (97.3 F) 05/29/2020 3:10 PM JUVENILE CORRECTIONAL OFFICER Respiratory Rate 18 05/29/2020 3:10 PM JUVENILE CORRECTIONAL OFFICER Oxygen Saturation - - Inhaled Oxygen Concentration - - Weight 120 kg (265 lb) 05/26/2020 11:00 AM JUVENILE CORRECTIONAL OFFICER Height 185.4 cm (6' 1) 05/25/2020 2:06 PM JUVENILE CORRECTIONAL OFFICER Body Mass Index 34.96 05/25/2020 2:06 PM JUVENILE CORRECTIONAL OFFICER Plan of Treatment Not on file Medical Devices Not on file Insurance MEDICARE [facility]
[2025-04-28 09:18] LABS: Add Urine Microscopic? YES; Appearance Urine Clear (Clear); Glucose Urine UA 3+ mg/dL (Negative); Leukocyte Esterase Ur Negative LEU/UL (Negative); Nitrate Urine Negative (Negative); Non Pathogenic Casts 0-2; Specific Grav Ur 1.019 (1.001-1.035)
[2025-04-28 09:33] LABS: Cholesterol 124 mg/dL (0-200); HDL Direct 33 mg/dL; Triglycerides 137 mg/dL (<150)
[2025-04-28 09:58] LABS: Free T3 2.85 pg/mL (2.34-5.61)
== END 2025-04-28 08:42 | disposition home or self-care (01) ==
DX: E03.9 Hypothyroidism, unspecified (principal); E78.5 Hyperlipidemia, unspecified; I12.9 Hypertensive chronic kidney disease with stage 1 through stage 4 chronic kidney disease, or unspecified chronic kidney disease; I25.10 Atherosclerotic heart disease of native coronary artery without angina pectoris
CPT/HCPCS: 36415; 80061; 81001; 84481